=== PATIENT | male | born 1960 | race Caucasian/White ===

== ENCOUNTER 2021-09-02 10:46 | Outpatient (RCR) | payer OTHER, SELFPAY ==
[2021-09-02 11:01] VITALS: BP 173/82; PULSE 101; RESP 16; TEMP 36.7; O2SAT 98
== END 2021-09-14 23:59 | disposition home or self-care (01) ==
LOC: CCIC 10:46
PROVIDERS: Visit Provider Clinical Nurse Specialist
DX: E83.51 Hypocalcemia (principal)
CPT/HCPCS: 96365; J0610

== ENCOUNTER 2021-11-28 09:00 | Outpatient (RCR) | payer OTHER, SELFPAY ==
[2021-09-16 10:55] VITALS: BP 182/91; PULSE 100; RESP 16; TEMP 36.5; O2SAT 100
[2021-09-30 11:01] VITALS: BP 169/72; PULSE 88; RESP 16; TEMP 35.9; O2SAT 99
[2021-10-14 11:17] VITALS: BP 191/78; PULSE 95; RESP 16; TEMP 36.2; O2SAT 100
[2021-10-14] MEDS: 0.9 % SODIUM CHLORIDE 250 ml IV (12:05)
[2021-10-14] MEDS: SODIUM CHLORIDE 0.9 % (FLUSH) 10 ML SYRINGE IVF (12:06)
--- NOTE | 2021-10-14 13:10 | ONC.NURNOTE ---
pt Ca. 10/07 was 7. infusion given over 1/2 hr per pharmacy ok. tol. mauricio
[2021-10-31 09:28] VITALS: BP 172/20; PULSE 95; RESP 16; TEMP 36.4; O2SAT 99
[2021-10-31] MEDS: 0.9 % SODIUM CHLORIDE 250 ml IV (10:10)
[2021-11-14 09:33] VITALS: BP 144/82; PULSE 98; RESP 16; TEMP 35.9; O2SAT 98
[2021-11-14] MEDS: SODIUM CHLORIDE 0.9 % (FLUSH) 10 ML SYRINGE IVF (14:42)
[2021-11-14] MEDS: 0.9 % SODIUM CHLORIDE 250 ml IV (14:43)
[2021-11-28 09:32] VITALS: BP 170/84; PULSE 97; RESP 16; TEMP 36.1; O2SAT 100
--- NOTE | 2021-12-11 12:37 | ONC.NURNOTE ---
Pt called to cancel infusion appt for 12/12/21 due to pt's Calcium level being 7.7. Pt will call to schedule if his Calcium is below 7.0.
== END 2022-03-15 23:59 | disposition home or self-care (01) ==
LOC: CCIC 09:00
PROVIDERS: Visit Provider Clinical Nurse Specialist
DX: E83.51 Hypocalcemia (principal)
CPT/HCPCS: 96365; J0610; J7050

== ENCOUNTER 2022-05-10 23:38 | Emergency (ER) | payer OTHER, SELFPAY ==
[2022-05-10 23:49] VITALS: BP 213/115; PULSE 117; RESP 22; TEMP 36.7; O2SAT 97; BMI 24.3
[2022-05-10 23:55] VITALS: O2SAT 97
--- NOTE | 2022-05-10 23:56 | CRLHL7_ITS ---
For Patients: As a result of the Century Cures Act, medical imaging exams and procedure reports are released immediately into your electronic medical record. You may view this report before your referring provider. If you have questions, please contact your health care provider. INDICATION: [id number]. TECHNIQUE: Chest 2 views. COMPARISON: None. FINDINGS: Lungs: Normal lung volume. No consolidation. Basilar predominant reticular linear airspace opacities. Pleura: No pleural effusion or pneumothorax. Heart and Mediastinum: Normal heart size. Atherosclerotic aorta. Bones: No acute displaced osseous process. IMPRESSION: No consolidation. Basilar predominant reticular linear airspace opacities. This is of indeterminate etiology however differential considerations include interstitial edema, as well as interstitial fibrotic change. Dictated by Irineo Peñaloza MD @ 05/11/2022 12:53:32 AM (Electronically Signed)
[2022-05-11] VITALS (19 sets, daily range): BP systolic 170–206; BP diastolic 87–107; PULSE 92–113; RESP 22; O2SAT 88–98
[2022-05-11] MEDS: FUROSEMIDE 10 MG/ML inj 120 MG IVP (00:05)
[2022-05-11 00:10] LABS: Basophils Percent Auto 0.5 % (0.0-3.0); Eosinophils Percent Auto 0.9 % (0.0-7.0); Hematocrit 24.6 % (37.0-53.0); Immature Granulocytes Pct Auto 4.2 %; Lymphocytes Percent Auto 6.5 % (20-44); Mean Corpuscular HGB Conc 32 gm/dL (32-36); Mean Corpuscular Hemoglobin 36 pg (26-34); Mean Corpuscular Volume 112 fL (80-100); Monocytes Percent Auto 4.9 % (0.0-11.0); Platelet Count* 190 K/uL (140-440); RDW Coefficient of Variation % 15.6 % (11.5-15.5); Red Blood Count 2.19 m/uL (4.30-5.90); White Blood Count* 12.57 K/uL (4.50-11.00)
[2022-05-11 00:15] LABS: Hemoglobin* 7.9 gm/dL (13.5-17.5)
[2022-05-11 00:16] LABS: Slide Review Reflex No
--- NOTE | 2022-05-11 00:26 | ED_ITS ---
HPI - SOB/Dyspnea General Date Seen: 05/11/22 Chief Complaint: Shortness of Breath/Dyspnea Stated Complaint: Shortness of Breath Time Seen by Provider: 05/10/22 23:47 Source: patient and EMS Mode of arrival: EMS Limitations: no limitations History of Present Illness HPI Narrative: Patient is a 62-year-old gentleman presents here for evaluation of shortness of breath by EMS. This occurred approximately an hour hour and half to bur being seen, he tells me he has had this happen to him multiple times in the past, he feels that he is likely fluid overloaded, as he gets dialysis Wednesday at [facility] (formerly [facility] in [place]. Denies any chest pain associated with this, he has had no fevers chills or coughing, he was given nitro x1 on the way over, they did try BiPAP that did not work, and he is on oxygen now 5 L nasal prongs. Has not missed any dialysis, but admits that he may need to take a little bit more fluid off this eye. Does urinate, and last urinated at least once or twice today. MD elicited complaint: shortness of breath Pertinent past history: congestive heart failure Onset (ago): hour(s) Timing: improved Severity: moderate Exacerbating factors: lying flat Relieving factors: oxygen and upright position Associated symptoms: denies other symptoms Treatment prior to arrival: oxygen and nitroglycerin Related Data Home oxygen amount: none Home Medications Medication Instructions Recorded Confirmed amlodipine 10 mg tablet 10 mg PO DAILY 09/02/21 05/11/22 calcitriol 0.25 mcg capsule 1.5 mcg PO DAILY 09/02/21 05/11/22 calcium acetate(phosphat bind) 667 2,668 mg PO TID 09/02/21 05/11/22 mg tablet folic acid 1 mg tablet 1 mg PO DAILY 09/02/21 05/11/22 multivitamin 1 tab PO DAILY 09/02/21 05/11/22 omeprazole 20 mg capsule,delayed 20 mg PO DAILY 09/02/21 05/11/22 release simvastatin 20 mg tablet 20 mg PO DAILY 09/02/21 05/11/22 ustekinumab 90 mg/mL subcutaneous 90 mg subcut Q4W 09/02/21 05/11/22 syringe (Gabriel) carvedilol 12.5 mg tablet 12.5 mg PO BID 05/11/22 05/11/22 gabapentin 100 mg capsule 200 mg PO HS 05/11/22 05/11/22 Allergies Allergy/AdvReac Type Severity Reaction Status Date / Time lisinopril Allergy Severe Verified 04/12/22 11:58 Review of Systems Status of ROS: Reports: 10 or more systems reviewed and unremarkable except as noted in History and below [facility] Medical History (Updated 05/11/22 @ 04:32 by Dallin Lema MD) A-fib ?I48.91 - Unspecified atrial fibrillation (ICD-10) Acute Crohn's disease ?K50.90 - Crohn's disease, unspecified, without complications (ICD-10) Anemia ?D64.9 - Anemia, unspecified (ICD-10) Aortic dissection ?I71.00 - Dissection of unspecified site of aorta (ICD-10) CAD (coronary artery disease) ?I25.10 - Atherosclerotic heart disease of [place] coronary artery without angina pectoris (ICD-10) ESRD (end stage renal disease) ?N18.6 - End stage renal disease (ICD-10) ESRD (end stage renal disease) on dialysis ?N18.6 - End stage renal disease (ICD-10) ?Z99.2 - Dependence on renal dialysis (ICD-10) HTN (hypertension) ?I10 - Essential (primary) hypertension (ICD-10) IPMN (intraductal papillary mucinous neoplasm) ?D49.0 - Neoplasm of unspecified behavior of digestive system (ICD-10) NSTEMI (non-ST elevated myocardial infarction) ?I21.4 - Non-ST elevation (NSTEMI) myocardial infarction (ICD-10) Surgical History (Updated 05/11/22 @ 00:10 by Do Whyte RN) History of bowel resection ?Z90.49 - Acquired absence of other specified parts of digestive tract (ICD- 10) Social History Smoking Status: Current every day smoker What tobacco products do you use: cigarettes Smoking packs per day: 0.25 Smoking cigarettes per day: 5.0 Do you use any of these nicotine containing products: None How often do you have a drink containing alcohol: never AUDIT-C Alcohol total score: 0 Non-prescribed substance use: denies use Exam Narrative: Exam Narrative: I find him in room 6, he is bent over the bed, on 5 L nasal prong, he is able to speak to me in full sentences however, and doing says he feels a lot better. Pupils are equal round reactive to light, TMs are normal oropharynx is normal, he does have crackles in his lungs to mid scapula bilaterally, there is no dullness to percussion, his respiratory rate is elevated. Heart sounds no clicks murmurs or gallops, but is slightly elevated heart rate is noted. Abdomen is soft, there is no guarding, no tenderness to palpation, he has no edema noted bilaterally in his extremities, he has palpable AV fistula in his left arm. Const: Vital Signs, click to edit/add: Vital Signs - 24 hr 05/10/22 23:49 05/11/22 01:15 05/10/22 23:55 Temperature 98.1 F Pulse Rate Pulse Rate [Left P ulse Oximeter] 117 H 106 H Respiratory Rate 22 22 Blood Pressure Blood Pressure [Ri ght Upper Arm] 213/115 H 203/101 H Pulse Oximetry 97 97 97 Oxygen Delivery Me thod Nasal Cannula Nasal Cannula Nasal Cannula Oxygen Flow Rate 5 5 5 05/11/22 01:23 05/11/22 02:01 05/11/22 02:15 Temperature Pulse Rate 105 H 108 H 101 H Pulse Rate [Left P ulse Oximeter] Respiratory Rate Blood Pressure 193/103 H 197/100 H Blood Pressure [Ri ght Upper Arm] Pulse Oximetry 98 97 95 Oxygen Delivery Me thod Oxygen Flow Rate 05/11/22 02:22 05/11/22 02:30 05/11/22 02:41 Temperature Pulse Rate 104 H 106 H Pulse Rate [Left P ulse Oximeter] Respiratory Rate Blood Pressure 201/107 H 202/96 H Blood Pressure [Ri ght Upper Arm] Pulse Oximetry 95 88 Oxygen Delivery Me thod Oxygen Flow Rate 05/11/22 02:45 05/11/22 03:00 05/11/22 03:01 Temperature Pulse Rate 106 H 113 H 109 H Pulse Rate [Left P ulse Oximeter] Respiratory Rate Blood Pressure 206/99 H Blood Pressure [Ri ght Upper Arm] Pulse Oximetry 90 89 91 Oxygen Delivery Me thod Oxygen Flow Rate 05/11/22 03:02 05/11/22 03:15 05/11/22 03:21 Temperature Pulse Rate 110 H 112 H 100 Pulse Rate [Left P ulse Oximeter] Respiratory Rate Blood Pressure 204/92 H Blood Pressure [Ri ght Upper Arm] Pulse Oximetry 92 91 93 Oxygen Delivery Me thod Room Air Room Air Room Air Oxygen Flow Rate 05/11/22 03:30 05/11/22 03:41 05/11/22 03:45 Temperature Pulse Rate 98 95 100 Pulse Rate [Left P ulse Oximeter] Respiratory Rate Blood Pressure 178/87 H Blood Pressure [Ri ght Upper Arm] Pulse Oximetry 92 95 90 Oxygen Delivery Me thod Room Air Room Air Room Air Oxygen Flow Rate 05/11/22 04:00 05/11/22 04:02 Temperature Pulse Rate 97 93 Pulse Rate [Left P ulse Oximeter] Respiratory Rate Blood Pressure 173/94 H Blood Pressure [Ri ght Upper Arm] Pulse Oximetry 93 94 Oxygen Delivery Me thod Room Air Room Air Oxygen Flow Rate Documenting provider has reviewed patient's vital signs: yes Course Reevaluation(s) Reevaluation #1: Checked the patient we wean down his oxygen at this 4 L, he still is more comfortable sitting up as opposed to lying back. Is audibly crackly, troponin is elevated at 0.19 but this does not wearing me too much, given the fact that he is a dialysis patient but definitely needs to be recheck, we will give him a dose of nitroglycerin also, see we can get some vasodilation. I will recheck him, but the plan is if his troponins main stable, that he is fluid overloaded and really needs to be dialyzed. Time: 01:14 Reevaluation #2: Patient now off oxygen feeling much improved, feels that his shortness of breath is a 2/10, he is able to urinate 25 mL. Time: 02:41 Time: 04:32 Additional Reevaluation(s): Patient is requesting to go home, I think this is reasonable, given what I see. He is now off oxygen, sleeping, we will scan transfer him to his normal scheduled dialysis, that will given definitive management of this. Vital Signs Vital signs: Initial Vital Signs Temperature 98.1 F 05/10/22 23:49 Temperature Source Temporal Artery Scan 05/10/22 23:49 Pulse Rate 117 H 05/10/22 23:49 Respiratory Rate 22 05/10/22 23:49 Blood Pressure 213/115 H 05/10/22 23:49 Blood Pressure Mean 147 03/26/23 23:49 Blood Pressure Position Sitting 05/10/22 23:49 Pulse Oximetry 97 05/10/22 23:49 Oxygen Delivery Method Nasal Cannula 05/10/22 23:49 Oxygen Flow Rate 5 05/10/22 23:49 Vital Signs Temperature 98.1 F 05/10/22 23:49 Pulse Rate 117 H 05/10/22 23:49 Respiratory Rate 22 05/10/22 23:49 Blood Pressure 213/115 H 05/10/22 23:49 Pulse Oximetry 97 05/10/22 23:49 Oxygen Delivery Method Nasal Cannula 05/10/22 23:49 Oxygen Flow Rate 5 05/10/22 23:49 Temperature 98.1 F 05/10/22 23:49 Pulse Rate 93 05/11/22 04:02 Respiratory Rate 22 05/11/22 01:15 Blood Pressure 173/94 H 05/11/22 04:02 Pulse Oximetry 94 05/11/22 04:02 Oxygen Delivery Method Room Air 05/11/22 04:02 Oxygen Flow Rate 5 05/11/22 01:15 MDM - SOB/Dyspnea MDM Narrative Medical decision making narrative: Life-threatening differential diagnosis includes occluded COPD exacerbation, pulmonary edema, acute coronary syndromes, pulmonary embolism, pneumonia, and pneumothorax. Other differential diagnosis considerations include asthma, br onchitis as well as other etiologies I think the likely etiology here is more likely is fluid overloaded, in a dialysis patient he does get dialysis Wednesday as scheduled tomorrow, but he does urinate too. I will try some Lasix, 120 mg IV to see if we can promote some fluid offloading, it is likely that the nitroglycerin was able to give him a little bit of relief. Chest x-ray labs EKG will also be ordered. Medical Records Attestation: I reviewed the patient's medical records. Lab Data Attestation: I reviewed the patient's lab results. Labs: Lab Results 05/11/22 05/11/22 05/11/22 Range/Units 00:00 00:00 01:52 WBC 12.57 H (4.50-11.00) K/uL RBC 2.19 L (4.30-5.90) m/uL Hgb 7.9 L* (13.5-17.5) gm/dL Hct 24.6 L (37.0-53.0) % MCV 112 H (80-100) fL MCH 36 H (26-34) pg MCHC 32 (32-36) gm/dL RDW Coeff of Loretta 15.6 H (11.5-15.5) % Plt Count 190 (140-440) K/uL Neut % (Auto) 83.0 H (42.0-72.0) % Lymph % (Auto) 6.5 L (20-44) % [place] % (Auto) 4.9 (0.0-11.0) % Eos % (Auto) 0.9 (0.0-7.0) % Baso % (Auto) 0.5 (0.0-3.0) % Neut # (Auto) 10.40 H (1.7-7.0) K/uL Lymph # (Auto) 0.80 L (0.90-2.90) K/uL [place] # (Auto) 0.60 (0.00-0.90) K/UL Eos # (Auto) 0.10 (0.00-0.50) K/uL Baso # (Auto) 0.10 (0.00-0.30) K/uL INR 1.25 H (0.91-1.10) APTT 30 (23-33) Seconds Sodium 134 L (135-149) mmol/L Potassium 5.1 (3.6-5.1) mmol/L Chloride 99 (96-114) mmol/L Carbon Dioxide 21 (20-32) mmol/L BUN 40 H (7-30) mg/dL Creatinine 9.8 H (0.5-1.5) mg/dL Estimated Creat Clear 8.22 Estimated GFR 5 ml/min Glucose 101 (60-115) mg/dL Calcium 8.4 Cancelled (8.4-10.6) mg/dL Troponin I 0.19 H* 0.20 H* (0.01-0.04) ng/mL SARS-CoV-2 (PCR) Negative SARS-CoV-2 (Negative) Influenza Type A (PCR) Negative PCR FLU A (Negative) Influenza Type B (PCR) Negative PCR FLU B (Negative) RSV (PCR) Negative PCR RSV (Negative) ECG Data Attestation: I personally reviewed and interpreted this ECG as follows: ECG interpretation date: 05/11/22 Interpretation: EKG shows right bundle-branch block, with bifascicular block, tachycardic at 1:09 a.m., no old EKG to compare to, no acute ST wave changes, abnormal EKG Discharge Plan Discharge Clinical Impression: CKD (chronic kidney disease) requiring chronic dialysis, Fluid overload Patient Disposition: Xfer Other Condition: Improved Instructions: Hemodialysis (DC) Additional Instructions: Patient is markedly better, off oxygen, we will transport him to his scheduled dialysis, as this will give him definitive management, I recommended that they run him a little sole polisher, especially going into the weekend, or he manage his fluids a bit better, otherwise he will come back and be seen as needed, or if he has worsening condition. Prescriptions: No Action carvedilol 12.5 mg tablet 12.5 mg PO BID gabapentin 100 mg capsule 200 mg PO HS Stelara 90 mg/mL syringe 90 mg SUBCUT Q4W multivitamin Tablet 1 tab PO DAILY calcium acetate(phosphat bind) 667 mg tablet 2,668 mg PO TID Patient Comments: TAKE 4 TABLETS BY MOUTH THREE TIMES DAILY WITH MEALS AND TAKE 2 TABLETS WITH SNACKS TO EQUAL 14 TABLETS PER DAY folic acid 1 mg tablet 1 mg PO DAILY omeprazole 20 mg capsule,delayed release(DR/EC) 20 mg PO DAILY amlodipine 10 mg tablet 10 mg PO DAILY calcitriol 0.25 mcg capsule 1.5 mcg PO DAILY simvastatin 20 mg tablet 20 mg PO DAILY Stand Alone Forms: [facility] Info Instructions
[2022-05-11 00:27] LABS: INR 1.25 (0.91-1.10); Prothrombin Time 16.5 Seconds
[2022-05-11 00:28] LABS: Partial Thromboplastin Time* 30 Seconds (23-33)
[2022-05-11 00:29] LABS: Chloride* 99 mmol/L (96-114); Sodium* 134 mmol/L (135-149)
[2022-05-11 00:30] LABS: Potassium* 5.1 mmol/L (3.6-5.1)
[2022-05-11 00:32] LABS: Creatinine* 9.8 mg/dL (0.5-1.5); Est. Creatinine Clearance* 8.22; Estimated Glomerular Filt Rate 5 ml/min
[2022-05-11 00:33] LABS: Blood Urea Nitrogen* 40 mg/dL (7-30); Calcium* 8.4 mg/dL (8.4-10.6); Carbon Dioxide* 21 mmol/L (20-32); Glucose* 101 mg/dL (60-115)
[2022-05-11 00:44] LABS: Troponin I* 0.19 ng/mL (0.01-0.04)
[2022-05-11 00:55] LABS: PCR FLU A Negative PCR FLU A (Negative); PCR FLU B Negative PCR FLU B (Negative); PCR RSV Negative PCR RSV (Negative)
[2022-05-11 00:57] LABS: SARS PCR* Negative SARS-CoV-2 (Negative)
[2022-05-11] MEDS: NITROGLYCERIN 0.4 MG TAB.SUBL SUBLINGUAL (01:19)
[2022-05-11] MEDS: carvediloL 6.25 MG TABLET 12.5 MG PO (03:14)
[2022-05-11] MEDS: AMLODIPINE 10 MG TABLET PO (03:14)
== END 2022-05-11 05:00 | disposition other institution (70) ==
PROVIDERS: Emergency Provider Family Medicine
DX: N18.6 End stage renal disease (principal); E87.70 Fluid overload, unspecified
CPT/HCPCS: 36415; 71046; 80048; 82310; 84484; 85025; 85610; 85730; 87502; 87634; 87635; 93005; 96374; 99285; A9270; J1940

== ENCOUNTER 2022-05-11 04:51 | Outpatient (CLI) | payer OTHER, SELFPAY | END 2022-05-11 04:52 | disposition home or self-care (01) | LOC: AMB 12:37 | PROVIDERS: Visit Provider Family Medicine | DX: R06.09 Other forms of dyspnea (principal) | CPT/HCPCS: A0425; A0428 ==

== ENCOUNTER 2023-01-22 09:50 | Emergency (ER) | payer OTHER, SELFPAY ==
[2023-01-22] VITALS (13 sets, daily range): BP systolic 90–115; BP diastolic 50–68; PULSE 60–84; RESP 12–18; TEMP 36.7; O2SAT 90–99; BMI 23.7
--- NOTE | 2023-01-22 10:28 | ED.GENADULT ---
HPI - General Adult General Time Seen by Provider: 10:28 Date Seen: 01/22/23 Chief complaint: Back Injury/Pain Stated complaint: very low BP Time Seen by Provider: 01/22/23 10:10 Source: patient, family and RN notes reviewed Mode of arrival: ambulatory Limitations: no limitations History of Present Illness HPI narrative: 62-year-old male with end-stage renal disease on dialysis who presents for back pain and low blood pressure. Patient notes that his blood pressures have been low all week when he goes to dialysis, was able to have his usual runs during this time. He says he has been drinking a little bit less than usual, normal appetite. Denies chest pain or shortness of breath. Denies abdominal pain, nausea, vomiting, diarrhea. This is legs are little more swollen than normal. He also has some bilateral back pain that is worse when he stands up, no new injuries. He is on amlodipine and carvedilol and has continued taking these, these are not new medications. Related Data Home Medications Medication Instructions Recorded Confirmed amlodipine 10 mg tablet 10 mg PO DAILY 09/02/21 05/11/22 calcitriol 0.25 mcg capsule 1.5 mcg PO DAILY 09/02/21 05/11/22 calcium acetate(phosphat bind) 667 2,668 mg PO TID 09/02/21 05/11/22 mg tablet folic acid 1 mg tablet 1 mg PO DAILY 09/02/21 05/11/22 multivitamin 1 tab PO DAILY 09/02/21 05/11/22 omeprazole 20 mg capsule,delayed 20 mg PO DAILY 09/02/21 05/11/22 release simvastatin 20 mg tablet 20 mg PO DAILY 09/02/21 05/11/22 ustekinumab 90 mg/mL subcutaneous 90 mg subcut Q4W 09/02/21 05/11/22 syringe (Stelara) carvedilol 12.5 mg tablet 12.5 mg PO BID 05/11/22 05/11/22 gabapentin 100 mg capsule 200 mg PO HS 05/11/22 05/11/22 Allergies Allergy/AdvReac Type Severity Reaction Status Date / Time lisinopril Allergy Severe Verified 01/22/23 14:12 [facility] Medical History (Updated 01/22/23 @ 17:05 by Hermilo Abad MD) Acute Crohn's disease ?K50.90 - Crohn's disease, unspecified, without complications (ICD-10) Anemia ?D64.9 - Anemia, unspecified (ICD-10) NSTEMI (non-ST elevated myocardial infarction) ?I21.4 - Non-ST elevation (NSTEMI) myocardial infarction (ICD-10) HTN (hypertension) ?I10 - Essential (primary) hypertension (ICD-10) IPMN (intraductal papillary mucinous neoplasm) ?D49.0 - Neoplasm of unspecified behavior of digestive system (ICD-10) ESRD (end stage renal disease) on dialysis ?N18.6 - End stage renal disease (ICD-10) ?Z99.2 - Dependence on renal dialysis (ICD-10) ESRD (end stage renal disease) ?N18.6 - End stage renal disease (ICD-10) CAD (coronary artery disease) ?I25.10 - Atherosclerotic heart disease of [place] coronary artery without angina pectoris (ICD-10) Aortic dissection ?I71.00 - Dissection of unspecified site of aorta (ICD-10) A-fib ?I48.91 - Unspecified atrial fibrillation (ICD-10) Surgical History (Updated 05/11/22 @ 00:10 by Do Whyte RN) History of bowel resection ?Z90.49 - Acquired absence of other specified parts of digestive tract (ICD-10) Social History Smoking Status: Current every day smoker What tobacco products do you use: cigarettes Smoking packs per day: 0.25 Smoking cigarettes per day: 5.0 Do you use any of these nicotine containing products: None How often do you have a drink containing alcohol: never AUDIT-C Alcohol total score: 0 Non-prescribed substance use: denies use Exam Narrative: Exam Narrative: General: Well-developed and well-nourished, no acute distress Head: Atraumatic and normocephalic Eyes: Pupils are equal reactive, extraocular motions intact, conjunctiva clear ENT: External nose and ears are normal, posterior pharynx without erythema or exudate Neck: No midline cervical tenderness, full spontaneous range of motion the neck, trachea midline, no adenopathy Heart: Regular rate and rhythm no murmurs or thrills Lungs: Clear to auscultation bilaterally without wheezes or crackles Abdomen: Soft, nontender, nondistended with active bowel sounds Musculoskeletal: Mild bilateral lumbar paraspinous tenderness, no CVA tenderness. Moderate bilateral lower extremity to the mid thayer Neurologic: Awake, alert, and oriented x3, no gross focal neurologic deficits, cranial nerves intact as tested Psych: Mood and affect are appropriate Skin: No rashes Const: Vital Signs, click to edit/add: Vital Signs - 24 hr 01/22/23 10:03 01/22/23 12:00 01/22/23 12:35 Temperature 98.0 F Pulse Rate 76 81 Pulse Rate [Pulse Oximeter] 60 Respiratory Rate 14 14 Blood Pressure 102/52 L Blood Pressure [Ri ght Upper Arm] 90/50 L Pulse Oximetry 95 95 91 Oxygen Delivery Me thod Room Air 01/22/23 13:08 01/22/23 13:32 01/22/23 14:06 Temperature Pulse Rate 80 81 81 Pulse Rate [Pulse Oximeter] Respiratory Rate 18 14 14 Blood Pressure 105/59 L 111/55 L 105/64 Blood Pressure [Ri ght Upper Arm] Pulse Oximetry 98 98 99 Oxygen Delivery Me thod 01/22/23 14:36 01/22/23 15:02 01/22/23 15:32 Temperature Pulse Rate 84 80 81 Pulse Rate [Pulse Oximeter] Respiratory Rate 14 16 14 Blood Pressure 99/57 L 115/68 115/51 L Blood Pressure [Ri ght Upper Arm] Pulse Oximetry 99 93 94 Oxygen Delivery Me thod 01/22/23 16:02 Temperature Pulse Rate 77 Pulse Rate [Pulse Oximeter] Respiratory Rate 16 Blood Pressure 94/60 Blood Pressure [Ri ght Upper Arm] Pulse Oximetry 94 Oxygen Delivery Me thod Course Course ED Course: Patient seen and examined, prior records are reviewed. Patient on dialysis who comes in for low blood pressures this week. Otherwise is feeling well although he does have some mild bilateral mid back pain which is worse with standing. On exam here he is hypotensive, no abdominal pain or tenderness. Consider dehydration although it sounds like patient has been drinking okay, also consider electrolyte disturbance, sepsis. Pulmonary embolism could cause hypotension but patient has no history of chest pain, breathing difficulty or syncope. Labs ordered along with small IV fluid bolus. If labs are reassuring and noted etiology for symptoms is found, will have patient stop his amlodipine and follow-up. Reevaluation(s) Time of Reevaluation #1: 11:20 Reevaluation #1: Labs independently interpreted by me with CBC that demonstrates anemia with hemoglobin of 7.7, prior hemoglobin in April 2022 was 7.4 and this likely is related to patient's chronic kidney disease but appears to be stable. Troponin 2.45, patient with no chest pain or EKG changes and again in setting of chronic kidney disease, this is not unexpected, repeat troponin will be done in 2 hours. EKG is reassuring. Time of Reevaluation #2: 12:47 Reevaluation #2: Patient complaining of chest tightness, blood pressure improved. Repeat EKG does not demonstrate any changes, repeat troponin is pending will add repeat hemoglobin. CT scan and bili interpreted by me demonstrates a large complex cystic lesion on the left kidney and trace pleural effusions. Time of Reevaluation #3: 13:33 Reevaluation #3: Patient continues to have chest pain, morphine IV was given. Repeat hemoglobin is stable at 7.9. Radiology interpretation CT with exophytic lesion of the left kidney with solid components verses hemorrhage into this mass. Given abnormal CT scan and now severe chest pain along with his back pain, concern for possible aortic pathology or hemorrhage into this cyst. CTA will be ordered, patient will need to be dialyzed over the weekend but given his symptoms likely will need to be transferred for admission. Repeat troponin is still pending Additional Reevaluation(s): 2:44 p.m. CTA independently interpreted by me does not demonstrate any pathology of the aorta. Small bilateral pleural effusions as seen on prior CT appears stable which is reassuring given small fluid bolus the patient was given. Left renal cyst/mass appears stable with no active extravasation of contrast into this. Repeat troponin is stable at 2.21. CTA is pending and will discuss with Cardiology. 4:46 p.m. repeat troponin 2.32. Care was discussed with Dr. Elder, cardiology. Agrees that in setting end-stage renal disease and normal EKG, stable elevated troponins with no significant rise are unlikely to represent acute coronary syndrome, and in this setting likely represent hypoperfusion due to hypotension and anemia. Does not recommend transfer for cardiology evaluation, does not recommend heparinization. Patient rechecked and is pain-free now. We discussed admission although patient will need to be transferred due to capacity issues at [facility]. Patient prefers to be discharged home. We discussed risks of discharge including continued pain,. Return to the to diagnosis emergent condition, disability, or . Patient is agreeable. Will contact Nephrology to discussed dialysis in setting of contrast administration today. 5:00 p.m. care discussed with [facility], does not recommend dialysis over the weekend and usual dialysis and Wednesday is reasonable. Will have patient stop his amlodipine for the weekend. Vital Signs Vital signs: Initial Vital Signs Temperature 98.0 F 01/22/23 10:03 Temperature Source Temporal Artery Scan 01/22/23 10:03 Pulse Rate 60 01/22/23 10:03 Pulse Rhythm Regular 01/22/23 10:03 Respiratory Rate 14 01/22/23 10:03 Blood Pressure 90/50 L 01/22/23 10:03 Blood Pressure Mean 63 L 01/22/23 10:03 Blood Pressure Position Sitting 01/22/23 10:03 Pulse Oximetry 95 01/22/23 10:03 Oxygen Delivery Method Room Air 01/22/23 10:03 Vital Signs Temperature 98.0 F 01/22/23 10:03 Pulse Rate 60 01/22/23 10:03 Respiratory Rate 14 01/22/23 10:03 Blood Pressure 90/50 L 01/22/23 10:03 Pulse Oximetry 95 01/22/23 10:03 Oxygen Delivery Method Room Air 01/22/23 10:03 Temperature 98.0 F 01/22/23 10:03 Pulse Rate 77 01/22/23 16:02 Respiratory Rate 16 01/22/23 16:02 Blood Pressure 94/60 01/22/23 16:02 Pulse Oximetry 94 01/22/23 16:02 Oxygen Delivery Method Room Air 01/22/23 10:03 Medications Administered Medications: Discontinued Medications Generic Name Dose Route Start Last Admin Trade Name Freq PRN Reason Stop Dose Admin Hydromorphone HCl 0.5 mg 01/22/23 13:36 01/22/23 14:00 Hydromorphone 0.5 Mg/0.5 Ml Inj IVP 01/22/23 13:37 0.5 mg ONCE ONE Administration Hydromorphone HCl 0.5 mg 01/22/23 15:47 01/22/23 15:51 Hydromorphone 0.5 Mg/0.5 Ml Inj IVP 01/22/23 15:48 0.5 mg ONCE ONE Administration Sodium Chloride 250 mls @ 250 mls/hr 01/22/23 10:37 01/22/23 12:29 0.9 % Sodium Chloride 250 Ml IV 01/22/23 11:36 Infused .Q1H ONE Infusion Lidocaine/Aluminum/Magnesium/Simeth 15 ml 01/22/23 13:09 01/22/23 13:19 Mag Hydrox/Aluminum Hyd/Simeth 30 Ml Oral.Susp PO 01/22/23 13:10 Not Given ONCE ONE Morphine Sulfate 2 mg 01/22/23 13:10 01/22/23 13:16 Morphine 2 Mg/Ml Inj IVP 01/22/23 13:11 2 mg ONCE ONE Administration Oxycodone HCl 2.5 mg 01/22/23 10:58 01/22/23 11:14 Oxycodone 5 Mg Tablet PO 01/22/23 10:59 2.5 mg ONCE ONE Administration Oxycodone HCl 2.5 mg 01/22/23 12:40 01/22/23 12:52 Oxycodone 1 Mg/Ml Oral Soln PO 01/22/23 12:41 2.5 mg ONCE ONE Administration Medical Decision Making Lab Data Labs: Lab Results 01/22/23 01/22/23 01/22/23 Range/Units 11:00 12:16 13:04 WBC 6.19 (4.50-11.00) K/uL RBC 2.38 L (4.30-5.90) m/uL Hgb 7.7 L* 7.9 L* (13.5-17.5) gm/dL Hct 24.7 L (37.0-53.0) % MCV 104 H (80-100) fL MCH 32 (26-34) pg MCHC 31 L (32-36) gm/dL RDW Coeff of [place] 17.9 H (11.5-15.5) % Plt Count 127 L (140-440) K/uL Neut % (Auto) 86.6 H (42.0-72.0) % Lymph % (Auto) 6.8 L (20-44) % [place] % (Auto) 4.7 (0.0-11.0) % Eos % (Auto) 0.2 (0.0-7.0) % Baso % (Auto) 0.6 (0.0-3.0) % Neut # (Auto) 5.40 (1.7-7.0) K/uL Lymph # (Auto) 0.40 L (0.90-2.90) K/uL [place] # (Auto) 0.30 (0.00-0.90) K/UL Eos # (Auto) 0.01 (0.00-0.50) K/uL Baso # (Auto) 0.04 (0.00-0.30) K/uL Abs Immat Gran (auto) 0.07 (0.00-0.30) K/uL Imm/Tot Granulo (auto) 1.1 % Sodium 131 L (135-149) mmol/L Potassium 4.0 (3.6-5.1) mmol/L Chloride 91 L (96-114) mmol/L Carbon Dioxide 33 H (20-32) mmol/L Anion Gap 7 (7-15) mEq/L BUN 15 (7-30) mg/dL Creatinine 3.1 H (0.5-1.5) mg/dL Estimated Creat Clear 25.98 Estimated GFR 22 ml/min Glucose 113 (60-115) mg/dL Calcium 8.3 L (8.4-10.6) mg/dL Magnesium 1.6 (1.5-2.6) mg/dL Total Bilirubin 1.4 (0.1-1.5) mg/dL Direct Bilirubin 0.4 (0.0-0.5) mg/dL AST 36 H (12-35) U/L ALT 22 (4-50) U/L Alkaline Phosphatase 62 (40-150) U/L Total Protein 6.2 (6.0-8.3) g/dL Albumin 3.2 L (3.3-5.0) g/dL Urine Color Yellow (Yellow) Urine Appearance Clear (Clear) Urine pH 7.5 (5.0-8.5) Ur Specific [place] 1.015 (1.000-1.030) Urine Protein 2+ A (Negative) Urine Glucose (UA) Negative (Negative) Urine Ketones Negative (Negative) Urine Blood 1+ A (Negative) Urine Nitrite Negative (Negative) Urine Bilirubin Negative (Negative) Urine Urobilinogen 0.2 (0.2-1.0) Ur Leukocyte Esterase 3+ A (Negative) Urine RBC 10-25 A (0-2) Urine WBC 2-5 (0-5) Ur Squamous Epith Cells Few (None-Few) Amorphous Sediment Moderate A (None) Urine Bacteria Few A (None) POC Troponin I 2.21 H (0.01-0.04) ng/ml 01/22/23 Range/Units 16:00 WBC (4.50-11.00) K/uL RBC (4.30-5.90) m/uL Hgb (13.5-17.5) gm/dL Hct (37.0-53.0) % MCV (80-100) fL MCH (26-34) pg MCHC (32-36) gm/dL RDW Coeff of [place] (11.5-15.5) % Plt Count (140-440) K/uL Neut % (Auto) (42.0-72.0) % Lymph % (Auto) (20-44) % [place] % (Auto) (0.0-11.0) % Eos % (Auto) (0.0-7.0) % Baso % (Auto) (0.0-3.0) % Neut # (Auto) (1.7-7.0) K/uL Lymph # (Auto) (0.90-2.90) K/uL [place] # (Auto) (0.00-0.90) K/UL Eos # (Auto) (0.00-0.50) K/uL Baso # (Auto) (0.00-0.30) K/uL Abs Immat Gran (auto) (0.00-0.30) K/uL Imm/Tot Granulo (auto) % Sodium (135-149) mmol/L Potassium (3.6-5.1) mmol/L Chloride (96-114) mmol/L Carbon Dioxide (20-32) mmol/L Anion Gap (7-15) mEq/L BUN (7-30) mg/dL Creatinine (0.5-1.5) mg/dL Estimated Creat Clear Estimated GFR ml/min Glucose (60-115) mg/dL Calcium (8.4-10.6) mg/dL Magnesium (1.5-2.6) mg/dL Total Bilirubin (0.1-1.5) mg/dL Direct Bilirubin (0.0-0.5) mg/dL AST (12-35) U/L ALT (4-50) U/L Alkaline Phosphatase (40-150) U/L Total Protein (6.0-8.3) g/dL Albumin (3.3-5.0) g/dL Urine Color (Yellow) Urine Appearance (Clear) Urine pH (5.0-8.5) Ur Specific [place] (1.000-1.030) Urine Protein (Negative) Urine Glucose (UA) (Negative) Urine Ketones (Negative) Urine Blood (Negative) Urine Nitrite (Negative) Urine Bilirubin (Negative) Urine Urobilinogen (0.2-1.0) Ur Leukocyte Esterase (Negative) Urine RBC (0-2) Urine WBC (0-5) Ur Squamous Epith Cells (None-Few) Amorphous Sediment (None) Urine Bacteria (None) POC Troponin I 2.32 H (0.01-0.04) ng/ml ECG Data Attestation: I personally reviewed and interpreted this ECG as follows: Prior ECG tracings: available for review Interpretation: Independently interpreted by me demonstrates sinus rhythm rate 75, right bundle-branch block with left anterior fascicular block, LVH, no acute ischemic changes, MA 158, QTC 533. Compared to prior of April 2022, no acute changes. Repeat EKG performed at 12:42 p.m. for chest pain independently interpreted by me demonstrate rate 80, sinus rhythm, right bundle-branch block and left anterior fascicular block, no acute ischemic changes, MA 160, QTC 535. No change from prior of earlier today. Discharge Plan Discharge Clinical Impression: Acute hypotension, Anemia in chronic kidney disease, CKD (chronic kidney disease) requiring chronic dialysis, Chest pain Patient Disposition: Home, Self-Care Condition: Stable Instructions: Chest Pain (DC), Hypotension (DC), Anemia (ED) Additional Instructions: Stop amlodipine Go to dialysis Wednesday as scheduled Activity Level: Activity as Tolerated Discharge Diet: Regular Prescriptions: No Action carvedilol 12.5 mg tablet 12.5 mg PO BID gabapentin 100 mg capsule 200 mg PO HS Stelara 90 mg/mL syringe 90 mg SUBCUT Q4W multivitamin Tablet 1 tab PO DAILY calcium acetate(phosphat bind) 667 mg tablet 2,668 mg PO TID Patient Comments: TAKE 4 TABLETS BY MOUTH THREE TIMES DAILY WITH MEALS AND TAKE 2 TABLETS WITH SNACKS TO EQUAL 14 TABLETS PER DAY folic acid 1 mg tablet 1 mg PO DAILY omeprazole 20 mg capsule,delayed release(DR/EC) 20 mg PO DAILY amlodipine 10 mg tablet 10 mg PO DAILY calcitriol 0.25 mcg capsule 1.5 mcg PO DAILY simvastatin 20 mg tablet 20 mg PO DAILY Follow Up/Referrals: Provider,Not a Local [Primary Care Provider] - Stand Alone Forms: edjing Info Instructions
--- NOTE | 2023-01-22 10:37 | CRLHL7_ITS ---
For Patients: As a result of the 21st Century Cures Act, medical imaging exams and procedure reports are released immediately into your electronic medical record. You may view this report before your referring provider. If you have questions, please contact your health care provider. INDICATION: Bilateral flank pain. On dialysis. Hypotension. TECHNIQUE: CT abdomen and pelvis without contrast. COMPARISON: None available. FINDINGS: Lower chest: Small bilateral pleural effusions. Bibasilar atelectasis. Evaluation of solid organs is limited secondary to lack of IV contrast administration. Liver: 1.2 cm cyst in the right lobe of the liver. Gallbladder and bile ducts: Not visualized, presumed to be surgically absent. Pancreas: There appear to be postsurgical changes of prior distal pancreatectomy. Spleen: Unremarkable. Multiple splenules are noted. Adrenal glands: Unremarkable. Kidneys: Severe atrophy of the bilateral [place] kidneys. Scattered punctate renal vascular calcifications versus nonobstructing calculi bilaterally. No hydronephrosis bilaterally. 1.5 cm cyst in the right kidney. There is a heterogeneous exophytic lesion in the lower pole of the left kidney measuring approximately 8.2 x 9.7 x 7.9 cm, with peripheral calcifications. There are internal hyperdensities within this lesion. Although these may reflect solid components, appearance raises concern for hemorrhage within the lesion, particularly in setting of hypotension. Retroperitoneum: No pathologically enlarged lymph node by size criteria. Bowel and mesentery: Bowel is not obstructed. No pneumoperitoneum. Scattered colonic diverticulosis, without evidence of acute diverticulitis. A right lower quadrant spigelian hernia contains long segment loop of ascending colon, without evidence of obstruction. Mild mesenteric edema. Bladder: Decompressed, suboptimally evaluated. Reproductive organs: No significant prostatomegaly. Pelvic lymph nodes: No lymphadenopathy. Vessels: Extensive vascular calcifications. Abdominal wall: Mild anasarca. Bones: Multilevel degenerative changes of the spine. No suspicious/aggressive focal osseous lesion. IMPRESSION: 1. Heterogeneous exophytic lesion in the lower pole of the left kidney measures approximately 8.2 x 9.7 x 7.9 cm, with peripheral calcifications. There are internal hyperdensities within this lesion. Although these may reflect solid components, the appearance raises concern for hemorrhage within the lesion, particularly in the setting of hypotension. Evaluation for active hemorrhage would require IV contrast administration. 2. Third spacing of fluid. 3. Additional incidental findings as above. Please note that all CT scans at this facility use dose modulation, iterative reconstruction, and/or weight-based dosing when appropriate to reduce radiation dose to as low as reasonably achievable. Dictated by Jun Hurt MD @ 01/22/2023 1:30:28 PM (Electronically Signed)
[2023-01-22 11:09] LABS: Basophils Absolute Auto 0.04 K/uL (0.00-0.30); Basophils Percent Auto 0.6 % (0.0-3.0); Eosinophils Absolute Auto 0.01 K/uL (0.00-0.50); Eosinophils Percent Auto 0.2 % (0.0-7.0); Hematocrit 24.7 % (37.0-53.0); Immature Granulocytes Abs Auto 0.07 K/uL (0.00-0.30); Immature Granulocytes Pct Auto 1.1 %; Lymphocytes Percent Auto 6.8 % (20-44); Mean Corpuscular HGB Conc 31 gm/dL (32-36); Mean Corpuscular Hemoglobin 32 pg (26-34); Mean Corpuscular Volume 104 fL (80-100); Monocytes Percent Auto 4.7 % (0.0-11.0); Neutrophils Percent Auto 86.6 % (42.0-72.0); Platelet Count* 127 K/uL (140-440); RDW Coefficient of Variation % 17.9 % (11.5-15.5); Red Blood Count 2.38 m/uL (4.30-5.90); White Blood Count* 6.19 K/uL (4.50-11.00)
[2023-01-22] MEDS: OXYCODONE 5 MG TABLET 2.5 MG PO (11:14)
[2023-01-22] MEDS: 0.9 % SODIUM CHLORIDE 250 ml 250 ML IV (11:15)
[2023-01-22 11:16] LABS: Hemoglobin* 7.7 gm/dL (13.5-17.5); Slide Review Reflex No
[2023-01-22 11:22] LABS: Chloride* 91 mmol/L (96-114)
[2023-01-22 11:23] LABS: Sodium* 131 mmol/L (135-149)
[2023-01-22 11:25] LABS: Creatinine* 3.1 mg/dL (0.5-1.5); Est. Creatinine Clearance* 25.98; Estimated Glomerular Filt Rate 22 ml/min
[2023-01-22 11:26] LABS: Anion Gap 7 mEq/L (7-15); Blood Urea Nitrogen* 15 mg/dL (7-30); Calcium* 8.3 mg/dL (8.4-10.6); Carbon Dioxide* 33 mmol/L (20-32); Glucose* 113 mg/dL (60-115)
[2023-01-22 11:33] LABS: Albumin* 3.2 g/dL (3.3-5.0)
[2023-01-22 11:35] LABS: Aspartate Amino Transferase* 36 U/L (12-35); Bilirubin Direct* 0.4 mg/dL (0.0-0.5); Bilirubin Total* 1.4 mg/dL (0.1-1.5); Total Protein* 6.2 g/dL (6.0-8.3)
[2023-01-22 11:36] LABS: Alanine Aminotransferase* 22 U/L (4-50); Alkaline Phosphatase* 62 U/L (40-150)
[2023-01-22 12:21] LABS: Magnesium* 1.6 mg/dL (1.5-2.6)
[2023-01-22 12:25] LABS: Appearance Urine Clear (Clear); Bilirubin Urine Negative (Negative); Blood Urine 1+ (Negative); Color Urine Yellow (Yellow); Glucose Urine Negative (Negative); Ketones Urine Negative (Negative); Leukocyte Esterase Urine 3+ (Negative); Nitrite Urine Negative (Negative); Protein Urine 2+ (Negative); Specific Gravity Urine 1.015 (1.000-1.030); Urobilinogen Urine 0.2 (0.2-1.0); pH Urine 7.5 (5.0-8.5)
[2023-01-22] MEDS: OXYCODONE 1 MG/ML ORAL SOLN 2.5 MG PO (12:52)
[2023-01-22] MEDS: MORPHINE 2 MG/ML inj IVP (13:16)
[2023-01-22 13:21] LABS: Hemoglobin* 7.9 gm/dL (13.5-17.5)
--- NOTE | 2023-01-22 13:30 | CRLHL7_ITS ---
For Patients: As a result of the 21st Century Cures Act, medical imaging exams and procedure reports are released immediately into your electronic medical record. You may view this report before your referring provider. If you have questions, please contact your health care provider. INDICATION: Chest and back pain. TECHNIQUE: Multiplanar CT examination of the chest without contrast and CT examination of the chest, abdomen and pelvis acquired after the administration of 95 mL of Isovue 370 contrast intravenously, dissection protocol COMPARISON: CT abdomen pelvis 01/22/2023 FINDINGS: CHEST: Lower neck: Cardiovascular structures: The unenhanced images demonstrate no evidence of aortic intramural hematoma. Thoracic aorta is normal in caliber without evidence of dissection. Heart size is normal. Severe atherosclerosis of the thoracic aorta. No large central pulmonary embolus. Coronary arterial calcifications Airways: The trachea remains patent. Mild peribronchial wall thickening diffusely, several foci of mucoid impaction in the left lower lobe. Mediastinum: No lymphadenopathy. Lungs: No focal consolidation. Linear bandlike opacifications of the lung bases likely due to subsegmental atelectasis and/or scarring. Interlobular septal thickening diffusely. Mild to moderate emphysematous changes. Pleura: Small pleural effusions bilaterally. No pneumothorax. Chest wall: Severe gynecomastia bilaterally. Bones: Intraosseous hemangioma within the T9 vertebral body. Degenerative changes of the thoracic spine. No acute osseous abnormalities. ABDOMEN AND PELVIS: Liver: Unremarkable. Gallbladder: Cholecystectomy. Bile ducts: No biliary ductal dilitation. Pancreas: Status post distal pancreatectomy. Spleen: Unremarkable. Adrenal glands: Unremarkable. Kidneys: Markedly atrophic kidneys and cortical scarring. 7.9 x 7.2 cm exophytic lesion arising from the lower pole of the left kidney with peripheral calcifications. No nodular enhancing components. There are thin internal septations. No hydronephrosis or obstructive uropathy. Tiny punctate nonobstructive calculi within the collecting system of the right kidney. Ureters: No hydroureter. Bladder: Decompressed limiting evaluation. GI tract: Herniation of several loops of ascending colon through a right spigelian hernia without evidence of bowel obstruction. Vascular: Severe atherosclerotic calcifications. Contour irregularity with medialization of the atherosclerotic calcifications of the infrarenal abdominal aorta without aneurysm identified. Chronic appearing calcified dissection flap involving a short-segment of the infrarenal abdominal aorta at this level. Lymph nodes: No pathologic lymphadenopathy by size criteria. Peritoneum: Unremarkable. No free air or significant free fluid. Pelvic Organs: Unremarkable. Bones: Degenerative changes without acute osseous abnormality is identified. Abdominal wall/soft tissues: Moderate diffuse anasarca. Right spigelian hernia. IMPRESSION: 1. No aortic intramural hematoma or dissection of the thoracic aorta. 2. Pulmonary vascular congestion interstitial edema, with small bilateral pleural effusions, can be seen with pulmonary edema. 3. Extensive atherosclerotic calcifications of the abdominal aorta and its branches. Chronic appearing tiny calcified dissection flap involving a short segment of the infrarenal abdominal aorta, without involvement of the inferior mesenteric or renal arteries. No acute dissection identified. 4. Large peripherally calcified left renal lesion measuring up to 7.9 cm on this examination, possibly complex simple renal cyst. Nonemergent MR may be considered for follow up if clinically warranted. 5. Herniation of several loops of nonobstructed ascending colon through a right spigelian hernia. No pneumatosis intestinalis or pneumoperitoneum. 6. Moderate diffuse anasarca. Please note that all CT scans at this facility use dose modulation, iterative reconstruction, and/or weight-based dosing when appropriate to reduce radiation dose to as low as reasonably achievable. Dictated by Elijah Melissa MD @ 01/22/2023 4:31:54 PM (Electronically Signed)
[2023-01-22 13:40] LABS: Amorphous Sediment Urine Moderate; Bacteria Urine Few; Squamous Epithelial Cell Urine Few (None-Few)
[2023-01-22 13:49] LABS: Troponin, Point-of-Care* 2.21 ng/ml (0.01-0.04)
[2023-01-22] MEDS: HYDROmorphone 0.5 mg/0.5 ml inj IVP ×2 (14:00→15:51)
[2023-01-22 16:21] LABS: Troponin, Point-of-Care* 2.32 ng/ml (0.01-0.04)
[2023-03-04 10:51] LABS: Troponin, Point-of-Care* 2.21 ng/ml (0.01-0.04)
== END 2023-01-22 17:31 | disposition home or self-care (01) ==
PROVIDERS: Emergency Provider Family Medicine
DX: M54.9 Dorsalgia, unspecified (principal); I95.9 Hypotension, unspecified; N18.6 End stage renal disease; R07.9 Chest pain, unspecified
CPT/HCPCS: 36415; 71275; 74174; 74176; 80048; 80076; 81001; 83735; 84484; 85018; 85025; 87086; 93005; 99285; A9270; J1170; J2270; J7050; Q9967

== ENCOUNTER 2023-01-27 05:35 | Emergency (ER) | payer OTHER, SELFPAY ==
[2023-01-27 05:45] VITALS: BP 122/69; PULSE 89; RESP 18; TEMP 36.7; O2SAT 100; BMI 24.6
--- NOTE | 2023-01-27 05:59 | ED.EPISTAXIS ---
History of Present Illness General Time Seen by Provider: 05:59 Date Seen: 01/27/23 Chief Complaint: Epistaxis/Nosebleed Stated Complaint: nose bleed Time Seen by Provider: 01/27/23 05:51 Source: patient, RN notes reviewed and old records reviewed Mode of arrival: ambulatory Limitations: no limitations History of Present Illness HPI Narrative: Patient is a very pleasant 62-year-old gentleman with a history of chronic kidney disease requiring dialysis, Crohn's disease who comes to the emergency room with a nose bleed. Patient notes the onset of bleeding yesterday afternoon at approximately 1600 hours. He states that this has happened in the past but he has never had to seek attention for it as the bleeding usually stops after an hour so. He notes that since 1600 hours he has inserted a paper towel into his nose and every time he tries to take it out he has a large clot and continues to bleed. He is not feeling lightheaded. Patient notes being seeing in our ER on WednesdayJanuary 22 for chest pain. At that time received EKGs and a CT that were reassuring according to the patient. Patient notes that he also has brought with him in microbiology port from [place] which is where he goes for dialysis. He notes he was supposed to have dialysis this morning at 0530 but they declined because he had 2 positive blood cultures of g positive cocci in pairs and chains. He notes that [facility] stated they were going to give him an antibiotic but as long as he was coming to the emergency room they felt that we could take care of this. Patient denies cough, fever, chills, unusual body aches. He does make a small amount of urine any denies any dysuria. He is not allergic to any antibiotics. Related Data Home Medications Medication Instructions Recorded Confirmed amlodipine 10 mg tablet 10 mg PO DAILY 09/02/21 05/11/22 calcitriol 0.25 mcg capsule 1.5 mcg PO DAILY 09/02/21 05/11/22 calcium acetate(phosphat bind) 667 2,668 mg PO TID 09/02/21 05/11/22 mg tablet folic acid 1 mg tablet 1 mg PO DAILY 09/02/21 05/11/22 multivitamin 1 tab PO DAILY 09/02/21 05/11/22 omeprazole 20 mg capsule,delayed 20 mg PO DAILY 09/02/21 05/11/22 release simvastatin 20 mg tablet 20 mg PO DAILY 09/02/21 05/11/22 ustekinumab 90 mg/mL subcutaneous 90 mg subcut Q4W 09/02/21 05/11/22 syringe (Stelara) carvedilol 12.5 mg tablet 12.5 mg PO BID 05/11/22 05/11/22 gabapentin 100 mg capsule 200 mg PO HS 05/11/22 05/11/22 Allergies Allergy/AdvReac Type Severity Reaction Status Date / Time lisinopril Allergy Severe Verified 01/22/23 14:12 Review of Systems Status of ROS: Reports: 10 or more systems reviewed and unremarkable except as noted in History and below [facility] Medical History Acute Crohn's disease ?K50.90 - Crohn's disease, unspecified, without complications (ICD-10) Anemia ?D64.9 - Anemia, unspecified (ICD-10) NSTEMI (non-ST elevated myocardial infarction) ?I21.4 - Non-ST elevation (NSTEMI) myocardial infarction (ICD-10) HTN (hypertension) ?I10 - Essential (primary) hypertension (ICD-10) IPMN (intraductal papillary mucinous neoplasm) ?D49.0 - Neoplasm of unspecified behavior of digestive system (ICD-10) ESRD (end stage renal disease) on dialysis ?N18.6 - End stage renal disease (ICD-10) ?Z99.2 - Dependence on renal dialysis (ICD-10) ESRD (end stage renal disease) ?N18.6 - End stage renal disease (ICD-10) CAD (coronary artery disease) ?I25.10 - Atherosclerotic heart disease of [place] coronary artery without angina pectoris (ICD-10) Aortic dissection ?I71.00 - Dissection of unspecified site of aorta (ICD-10) A-fib ?I48.91 - Unspecified atrial fibrillation (ICD-10) Surgical History History of bowel resection ?Z90.49 - Acquired absence of other specified parts of digestive tract (ICD-10) Social History Smoking Status: Current every day smoker What tobacco products do you use: cigarettes Smoking packs per day: 0.25 Smoking cigarettes per day: 5.0 Do you use any of these nicotine containing products: None How often do you have a drink containing alcohol: never AUDIT-C Alcohol total score: 0 Non-prescribed substance use: denies use Exam Narrative: Exam Narrative: Patient is alert and oriented. Nontoxic in appearance. He presents with a rolled up paper towel in his right naris that does have some blood bleaching down outside of the Joyce. He does not appear to be coughing up blood. Heart with a regular rate and rhythm and lungs are clear bilaterally. Abdomen soft. No evidence of erythema or wounds or drainage over the fistula on the left. There is a resolving area of ecchymosis on his right volar forearm. Moving all extremities. Const: Vital Signs, click to edit/add: Vital Signs - 24 hr 01/27/23 05:45 01/27/23 08:24 01/27/23 09:00 Temperature 98.1 F Pulse Rate [Pulse Oximeter] 89 81 Respiratory Rate 18 16 Blood Pressure [Ri ght Upper Arm] 122/69 114/55 L 120/59 L Pulse Oximetry 100 96 Oxygen Delivery Me thod Room Air Room Air Oxygen Flow Rate 01/27/23 09:11 Temperature Pulse Rate [Pulse Oximeter] 82 Respiratory Rate Blood Pressure [Ri ght Upper Arm] Pulse Oximetry 93 Oxygen Delivery Me thod Nasal Cannula Oxygen Flow Rate 2 Documenting provider has reviewed patient's vital signs: yes Course Course ED Course: At this time patient presents with 2 separate issues. First he has bleeding from his right Joyce. Will use gently remove the packing and use Afrin followed by liquid cocaine to see if we can identify the area of bleeding. Will cauterize if needed. Secondly patient presents with positive blood cultures. I did asked why these were taken any states that this is routine and that he was not experiencing any specific symptoms for this to happen. These were collected on 01/25/2023 at 0910 hours. Again both bottles of his blood culture grew out Gram-positive cocci in pairs and chains. Will check a CBC, comprehensive, CRP and draw 1 set of blood cultures here in our emergency room. Plan on speaking to [facility] as well as primary regarding appropriate antibiotic choice. Reevaluation(s) Reevaluation #1: Gently the paper tile is removed from patient's right Joyce. I do note multiple areas of blood but no active bleeding at this time. Afrin used x2. Liquid cocaine soaked gauze then inserted. Reevaluation #2: I removed the gauze and I do see area of superficial bleeding just inside the nose on the septum. Silver nitrate stick used to cauterize this area. Patient denies the feeling that any blood is going down the back of his throat. Currently awaiting consult with [place] [facility] in regards to antibiotic choice. Reevaluation #3: Unfortunately in spite of cauterization patient did have continued bleeding. I did look in nostril once again and unable to identify a discrete area of bleeding at this time. I did insert a 5.5 rhino rocket. Balloon was inflated. Soaked initially in normal saline. Patient tolerated this very well and there is no ongoing bleeding. Consultations Consultation #1: I had the pleasure of speaking with Dr. Millard. At this time would recommend vancomycin at 10 milligrams/kilogram and thus 800 mg is ordered. Further, ceftriaxone [address] IV is ordered[address] Dr. Millard notes this should be repeated tomorrow after his dialysis. Vital Signs Vital signs: Initial Vital Signs Temperature 98.1 F 01/27/23 05:45 Temperature Source Temporal Artery Scan 01/27/23 05:45 Pulse Rate 89 01/27/23 05:45 Respiratory Rate 18 01/27/23 05:45 Blood Pressure 122/69 01/27/23 05:45 Blood Pressure Mean 86 01/27/23 05:45 Blood Pressure Position Sitting 01/27/23 05:45 Pulse Oximetry 100 01/27/23 05:45 Oxygen Delivery Method Room Air 01/27/23 05:45 Vital Signs Temperature 98.1 F 01/27/23 05:45 Pulse Rate 89 01/27/23 05:45 Respiratory Rate 18 01/27/23 05:45 Blood Pressure 122/69 01/27/23 05:45 Pulse Oximetry 100 01/27/23 05:45 Oxygen Delivery Method Room Air 01/27/23 05:45 Temperature 98.1 F 01/27/23 05:45 Pulse Rate 82 01/27/23 09:11 Respiratory Rate 16 01/27/23 08:24 Blood Pressure 120/59 L 01/27/23 09:00 Pulse Oximetry 93 01/27/23 09:11 Oxygen Delivery Method Nasal Cannula 01/27/23 09:11 Oxygen Flow Rate 2 01/27/23 09:11 Medications Administered Medications: Generic Name Dose Route Start Last Admin Trade Name Freq PRN Reason Stop Dose Admin Oxymetazoline HCl 1 spray 01/27/23 06:09 01/27/23 07:15 Oxymetazoline 0.05% Nasal [place] NOSTRIL-B 1 spray BID PRN Administration Discontinued Medications Generic Name Dose Route Start Last Admin Trade Name Freq PRN Reason Stop Dose Admin Cocaine HCl 4 ml 01/27/23 06:09 01/27/23 07:15 Cocaine Hcl 4 % 4 Ml Solution NOSTRIL-R 01/27/23 06:10 3 ml ONCE ONE Administration Vancomycin HCl 1,000 mg/ 260 mls @ 254 mls/hr 01/27/23 07:15 01/27/23 08:09 Sodium Chloride IVPB 01/27/23 08:16 Not Given ONCE ONE Protocol Ceftriaxone Sodium 1 gm/ 100 mls @ 200 mls/hr 01/27/23 07:15 01/27/23 08:44 Sodium Chloride IVPB 01/27/23 07:16 Infused ONCE ONE Infusion Vancomycin HCl 800 mg/ Sodium 258 mls @ 254 mls/hr 01/27/23 08:00 01/27/23 08:54 Chloride IVPB 01/27/23 09:00 254 mls/hr ONCE ONE Administration Protocol Silver Nitrate/Potassium Nitrate 1 each 01/27/23 06:09 01/27/23 07:15 Silver Nitrate Applicator 1 Each Stick..Ea. TOPICAL 01/27/23 06:10 1 each ONCE ONE Administration MDM - Epistaxis MDM Narrative Medical decision making narrative: 1. Epistaxis-anterior soft rhino packing inserted. Patient will need to follow up for on Wednesday with ENT for removal and evaluation. Advised sleeping with head of bed elevated. Patient will be on antibiotics to do not feel the need for prophylaxis at this time. Appointment for removal tomorrow at 0215 at the [facility] site with our ENT. 2. Bacteremia-will treat patient with ceftriaxone and vancomycin today per continuity clerk suggestion. I have also spoken with [facility] and instructed them to repeat antibiotics post dialysis tomorrow. Blood cultures were again done in the emergency room. Seek medical attention/return to the emergency room for fever, vomiting, worsening symptoms. 3. Anemia-hemoglobin 7.4. Previous value 7.9. Patient has no chest pain or shortness of breath today. He states that he gets very tired and weak when his hemoglobin gets low enough to need blood. He will need to have hemoglobin recheck tomorrow. 4. Disposition-home after receiving antibiotics. Return to the emergency room for worsening symptoms especially chest pain, shortness of breath and as needed. Follow up with dialysis as scheduled for tomorrow. Medical Records Attestation: I reviewed the patient's medical records. Lab Data Attestation: I reviewed the patient's lab results. Labs: Lab Results 01/27/23 Range/Units 06:22 WBC 6.94 (4.50-11.00) K/uL RBC 2.24 L (4.30-5.90) m/uL Hgb 7.4 L* (13.5-17.5) gm/dL Hct 23.9 L (37.0-53.0) % MCV 107 H (80-100) fL MCH 33 (26-34) pg MCHC 31 L (32-36) gm/dL RDW Coeff of Loretta 19.1 H (11.5-15.5) % Plt Count 124 L (140-440) K/uL Neut % (Auto) 86.6 H (42.0-72.0) % Lymph % (Auto) 4.8 L (20-44) % Bennett % (Auto) 6.6 (0.0-11.0) % Eos % (Auto) 0.3 (0.0-7.0) % Baso % (Auto) 0.7 (0.0-3.0) % Neut # (Auto) 6.00 (1.7-7.0) K/uL Lymph # (Auto) 0.30 L (0.90-2.90) K/uL Bennett # (Auto) 0.50 (0.00-0.90) K/UL Eos # (Auto) 0.02 (0.00-0.50) K/uL Baso # (Auto) 0.05 (0.00-0.30) K/uL Abs Immat Gran (auto) 0.07 (0.00-0.30) K/uL Imm/Tot Granulo (auto) 1.0 % INR 1.62 H (0.91-1.10) Sodium 130 L (135-149) mmol/L Potassium 4.0 (3.6-5.1) mmol/L Chloride 92 L (96-114) mmol/L Carbon Dioxide 29 (20-32) mmol/L Anion Gap 9 (7-15) mEq/L BUN 34 H (7-30) mg/dL Creatinine 7.5 H (0.5-1.5) mg/dL Estimated Creat Clear 10.74 Estimated GFR 8 ml/min Glucose 103 (60-115) mg/dL Calcium 8.9 (8.4-10.6) mg/dL Total Bilirubin 1.3 (0.1-1.5) mg/dL AST 22 (12-35) U/L ALT 19 (4-50) U/L Alkaline Phosphatase 66 (40-150) U/L C-Reactive Protein 7.5 H (0.5-1.0) mg/dL Total Protein 6.2 (6.0-8.3) g/dL Albumin 3.2 L (3.3-5.0) g/dL Discharge Plan Discharge Clinical Impression: Epistaxis, Bacteremia Anemia Qualifiers: Anemia type: due to chronic kidney disease Condition: Improved Additional Instructions: In regards to your nose bleed: Leave packing in place. I was able to arrange an appointment with our ENT tomorrow afternoon at 0215 at the [place] office for [facility]. The address is [address] [place] [address]. The office #[phone] Hensley In regards to your positive blood cultures: You received a dose of vancomycin and ceftriaxone here in the emergency room. You will need to receive a dose of those medications tomorrow after your dialysis. Dialysis will need to follow you in regards to the bacteria noted in the blood cultures. However, should use suddenly experience high fever, vomiting or worsening symptoms I would ask you return to the emergency room. Return to the [facility] emergency room for worsening symptoms especially chest pain or shortness of breath as your hemoglobin is low at 7.4 but appears to be within a normal range per your past hemoglobin tests. Prescriptions: No Action carvedilol 12.5 mg tablet 12.5 mg PO BID gabapentin 100 mg capsule 200 mg PO HS Stelara 90 mg/mL syringe 90 mg SUBCUT Q4W multivitamin Tablet 1 tab PO DAILY calcium acetate(phosphat bind) 667 mg tablet 2,668 mg PO TID Patient Comments: TAKE 4 TABLETS BY MOUTH THREE TIMES DAILY WITH MEALS AND TAKE 2 TABLETS WITH SNACKS TO EQUAL 14 TABLETS PER DAY folic acid 1 mg tablet 1 mg PO DAILY omeprazole 20 mg capsule,delayed release(DR/EC) 20 mg PO DAILY amlodipine 10 mg tablet 10 mg PO DAILY calcitriol 0.25 mcg capsule 1.5 mcg PO DAILY simvastatin 20 mg tablet 20 mg PO DAILY Follow Up/Referrals: Provider,Not a Local [Primary Care Provider] -
[2023-01-27 06:51] LABS: Basophils Absolute Auto 0.05 K/uL (0.00-0.30); Basophils Percent Auto 0.7 % (0.0-3.0); Eosinophils Absolute Auto 0.02 K/uL (0.00-0.50); Eosinophils Percent Auto 0.3 % (0.0-7.0); Hematocrit 23.9 % (37.0-53.0); Immature Granulocytes Abs Auto 0.07 K/uL (0.00-0.30); Lymphocytes Percent Auto 4.8 % (20-44); Mean Corpuscular HGB Conc 31 gm/dL (32-36); Mean Corpuscular Hemoglobin 33 pg (26-34); Mean Corpuscular Volume 107 fL (80-100); Monocytes Percent Auto 6.6 % (0.0-11.0); Neutrophils Percent Auto 86.6 % (42.0-72.0); Platelet Count* 124 K/uL (140-440); RDW Coefficient of Variation % 19.1 % (11.5-15.5); Red Blood Count 2.24 m/uL (4.30-5.90); White Blood Count* 6.94 K/uL (4.50-11.00)
[2023-01-27 07:05] LABS: Albumin* 3.2 g/dL (3.3-5.0); Chloride* 92 mmol/L (96-114)
[2023-01-27 07:06] LABS: Sodium* 130 mmol/L (135-149)
[2023-01-27 07:08] LABS: Bilirubin Total* 1.3 mg/dL (0.1-1.5); Creatinine* 7.5 mg/dL (0.5-1.5); Est. Creatinine Clearance* 10.74; Estimated Glomerular Filt Rate 8 ml/min
[2023-01-27 07:09] LABS: Alanine Aminotransferase* 19 U/L (4-50); Alkaline Phosphatase* 66 U/L (40-150); Anion Gap 9 mEq/L (7-15); Aspartate Amino Transferase* 22 U/L (12-35); Blood Urea Nitrogen* 34 mg/dL (7-30); Calcium* 8.9 mg/dL (8.4-10.6); Carbon Dioxide* 29 mmol/L (20-32); Glucose* 103 mg/dL (60-115); Total Protein* 6.2 g/dL (6.0-8.3)
[2023-01-27 07:12] LABS: C Reactive Protein* 7.5 mg/dL (0.5-1.0)
[2023-01-27 07:13] LABS: INR 1.62 (0.91-1.10); Prothrombin Time 20.3 Seconds
[2023-01-27] MEDS: OXYMETAZOLINE 0.05% NASAL SPRAY 1 SPRAY NOSTRIL-B (07:15)
[2023-01-27] MEDS: COCAINE HCL 4 % 4 ML SOLUTION NOSTRIL-R (07:15)
[2023-01-27] MEDS: SILVER NITRATE APPLICATOR 1 EACH STICK..EA. TOPICAL (07:15)
[2023-01-27 07:17] LABS: Hemoglobin* 7.4 gm/dL (13.5-17.5); Slide Review Reflex No
[2023-01-27] MEDS: cefTRIAXone 1 GM in 0.9 % SODIUM CHLORIDE Mini-bag 100 ML IVPB (08:11)
[2023-01-27 08:24] VITALS: BP 114/55; PULSE 81; RESP 16; O2SAT 96
[2023-01-27 09:00] VITALS: BP 120/59
--- NOTE | 2023-01-27 09:10 | ED.NURSE ---
Pt sleeping in room, O2 sats down to ~84% on RA while sleeping. notified, placed pt on 2L O2 NC.
[2023-01-27 09:11] VITALS: PULSE 82; O2SAT 93
== END 2023-01-27 10:04 | disposition home or self-care (01) ==
PROVIDERS: Emergency Provider Family Medicine
DX: R04.0 Epistaxis (principal)
CPT/HCPCS: 30901; 36415; 80053; 81001; 85025; 85610; 86140; 87040; 87186; 95992; 96365; 96366; 99284; A9270; J0696; J3370; J7050

== ENCOUNTER 2023-01-31 06:05 | Emergency (ER) | payer OTHER, SELFPAY ==
[2023-01-31 06:15] VITALS: BP 136/80; PULSE 111; RESP 22; TEMP 36.9; O2SAT 100
--- NOTE | 2023-01-31 06:36 | ED_ITS ---
HPI - General Adult General Chief complaint: Epistaxis/Nosebleed Stated complaint: Nose bleed Time Seen by Provider: 01/31/23 06:36 History of Present Illness HPI narrative: Patient returns to [place] ER with c/o nosebleed that started on Wednesday night at 2200. Patient was in on 01/26/23 for the same issue . Patient saw ENT on , where the packing was removed and another area was cauterized. Patient states he is worried his hgb is low, as that happened in the past and has required transfusions. Patient denies trauma/pain. 62-year-old man presenting to the emergency department for nose bleed since late last night. Had been seen 5 days ago and had rapid rhino balloon placed. At this time was also diagnosed with bacteremia initiated on antibiotics. Has not had any fever. This was pulled 3 days ago and cauterized with ENT. This was in the right naris. History chronic kidney disease and anemia. Does receive dialysis. Has been rather anemic in the mid sevens. Has been recommended to recheck his hemoglobin. Is not having pain. He thinks it is a big clot in his right maxillary sinus as he describes it. Has a humidifier on his home furnace at sounds. No bedroom humidifier nor does he use intranasal Vaseline/moisturizer. Related Data Home Medications Medication Instructions Recorded Confirmed amlodipine 10 mg tablet 10 mg PO DAILY 09/02/21 01/28/23 calcitriol 0.25 mcg capsule 1.5 mcg PO DAILY 09/02/21 01/28/23 calcium acetate(phosphat bind) 667 2,668 mg PO TID 09/02/21 01/28/23 mg tablet folic acid 1 mg tablet 1 mg PO DAILY 09/02/21 01/28/23 multivitamin 1 tab PO DAILY 09/02/21 01/28/23 omeprazole 20 mg capsule,delayed 20 mg PO DAILY 09/02/21 01/28/23 release simvastatin 20 mg tablet 20 mg PO DAILY 09/02/21 01/28/23 ustekinumab 90 mg/mL subcutaneous 90 mg subcut Q4W 09/02/21 01/28/23 syringe (Gabriel) carvedilol 12.5 mg tablet 12.5 mg PO BID 05/11/22 01/28/23 gabapentin 100 mg capsule 200 mg PO HS 05/11/22 01/28/23 Allergies Allergy/AdvReac Type Severity Reaction Status Date / Time lisinopril Allergy Severe Verified 01/28/23 14:17 Review of Systems Status of ROS: Reports: 6 or more systems reviewed and unremarkable except as noted in History and below [facility] Medical History Acute Crohn's disease ?K50.90 - Crohn's disease, unspecified, without complications (ICD-10) Anemia ?D64.9 - Anemia, unspecified (ICD-10) NSTEMI (non-ST elevated myocardial infarction) ?I21.4 - Non-ST elevation (NSTEMI) myocardial infarction (ICD-10) HTN (hypertension) ?I10 - Essential (primary) hypertension (ICD-10) IPMN (intraductal papillary mucinous neoplasm) ?D49.0 - Neoplasm of unspecified behavior of digestive system (ICD-10) ESRD (end stage renal disease) on dialysis ?N18.6 - End stage renal disease (ICD-10) ?Z99.2 - Dependence on renal dialysis (ICD-10) ESRD (end stage renal disease) ?N18.6 - End stage renal disease (ICD-10) CAD (coronary artery disease) ?I25.10 - Atherosclerotic heart disease of [place] coronary artery without angina pectoris (ICD-10) Aortic dissection ?I71.00 - Dissection of unspecified site of aorta (ICD-10) A-fib ?I48.91 - Unspecified atrial fibrillation (ICD-10) Surgical History History of bowel resection ?Z90.49 - Acquired absence of other specified parts of digestive tract (ICD- 10) Social History Smoking Status: Current every day smoker What tobacco products do you use: cigarettes Smoking packs per day: 0.25 Smoking cigarettes per day: 5.0 Do you use any of these nicotine containing products: None Second hand tobacco smoke exposure: No How often do you have a drink containing alcohol: never AUDIT-C Alcohol total score: 0 Non-prescribed substance use: denies use service: No Exam Narrative: Exam Narrative: Pleasant. Slim. Skin is sallow. Dialysis fistula noted the left arm. Breathing easily other than some nasopharyngeal congestion. Has a blood-stained toilet tissue rolled up as a tampon in the right nostril. There is some dry blood at the left naris. Oropharynx actually do not see much active bleeding right now. Heart is in elevated regular rate on palpation on auscultation. Removing the toilet tissue he has placed reveals a clot but lightly oozing from the right naris. I think source of blood will be the mid septum. I think nasal packing in this case will be inevitable. I do place therefore Merocel nasal packing. This seems to cause some nausea but he does not want any treatment for this or removal of the packing at this time. On initial reassessment does appear to have controlled any bleeding. Const: Vital Signs, click to edit/add: Vital Signs - 24 hr 01/31/23 06:15 Temperature 98.5 F Pulse Rate [Right Pulse Oximeter] 111 H Respiratory Rate 22 Blood Pressure [Ri ght Upper Arm] 136/80 Pulse Oximetry 100 Oxygen Delivery Me thod Room Air Documenting provider has reviewed patient's vital signs: yes Course Vital Signs Vital signs: Initial Vital Signs Temperature 98.5 F 01/31/23 06:15 Temperature Source Temporal Artery Scan 01/31/23 06:15 Pulse Rate 111 H 01/31/23 06:15 Respiratory Rate 22 01/31/23 06:15 Blood Pressure 136/80 01/31/23 06:15 Blood Pressure Mean 98 01/31/23 06:15 Blood Pressure Position Sitting 01/31/23 06:15 Pulse Oximetry 100 01/31/23 06:15 Oxygen Delivery Method Room Air 01/31/23 06:15 Vital Signs Temperature 98.5 F 01/31/23 06:15 Pulse Rate 111 H 01/31/23 06:15 Respiratory Rate 22 01/31/23 06:15 Blood Pressure 136/80 01/31/23 06:15 Pulse Oximetry 100 01/31/23 06:15 Oxygen Delivery Method Room Air 01/31/23 06:15 Temperature 98.5 F 01/31/23 06:15 Pulse Rate 111 H 01/31/23 06:15 Respiratory Rate 22 01/31/23 06:15 Blood Pressure 136/80 01/31/23 06:15 Pulse Oximetry 100 01/31/23 06:15 Oxygen Delivery Method Room Air 01/31/23 06:15 Medical Decision Making MDM Narrative Medical decision making narrative: See exam. Will also check hemoglobin/hematocrit and type and screen. May need transfusion. While low, hemoglobin thankfully is stable. Bleeding controlled with Merocel packing and is much more comfortable. See patient discharge plan Lab Data Lab results reviewed: Yes I reviewed the patient's lab results Labs: Lab Results 01/31/23 Range/Units 07:15 WBC 6.14 (4.50-11.00) K/uL RBC 2.26 L (4.30-5.90) m/uL Hgb 7.4 L* (13.5-17.5) gm/dL Hct 24.2 L (37.0-53.0) % MCV 107 H (80-100) fL MCH 33 (26-34) pg MCHC 31 L (32-36) gm/dL RDW Coeff of Loretta 19.1 H (11.5-15.5) % Plt Count 102 L (140-440) K/uL Neut % (Auto) 84.7 H (42.0-72.0) % Lymph % (Auto) 8.3 L (20-44) % [place]away % (Auto) 4.9 (0.0-11.0) % Eos % (Auto) 0.3 (0.0-7.0) % Baso % (Auto) 0.8 (0.0-3.0) % Neut # (Auto) 5.20 (1.7-7.0) K/uL Lymph # (Auto) 0.50 L (0.90-2.90) K/uL [place] # (Auto) 0.30 (0.00-0.90) K/UL Eos # (Auto) 0.02 (0.00-0.50) K/uL Baso # (Auto) 0.05 (0.00-0.30) K/uL Abs Immat Gran (auto) 0.06 (0.00-0.30) K/uL Imm/Tot Granulo (auto) 1.0 % Blood Type A Positive Antibody Screen NEGATIVE Discharge Plan Discharge Clinical Impression: Anemia of chronic disease, Epistaxis, recurrent Patient Disposition: Home, Self-Care Condition: Improved Additional Instructions: I would aim to pull this packing out on Wednesday this coming week. Since you are already receiving regular antibiotics I do not think we need to give any more with regard to this nasal packing. Light oozing from the packing/nose is probably okay. Prescriptions: No Action carvedilol 12.5 mg tablet 12.5 mg PO BID gabapentin 100 mg capsule 200 mg PO HS Stelara 90 mg/mL syringe 90 mg SUBCUT Q4W multivitamin Tablet 1 tab PO DAILY calcium acetate(phosphat bind) 667 mg tablet 2,668 mg PO TID Patient Comments: TAKE 4 TABLETS BY MOUTH THREE TIMES DAILY WITH MEALS AND TAKE 2 TABLETS WITH SNACKS TO EQUAL 14 TABLETS PER DAY folic acid 1 mg tablet 1 mg PO DAILY omeprazole 20 mg capsule,delayed release(DR/EC) 20 mg PO DAILY amlodipine 10 mg tablet 10 mg PO DAILY calcitriol 0.25 mcg capsule 1.5 mcg PO DAILY simvastatin 20 mg tablet 20 mg PO DAILY Follow Up/Referrals: Provider,Not a Local [Primary Care Provider] - Stand Alone Forms: GO-SIM Info Instructions
[2023-01-31 07:25] LABS: Basophils Absolute Auto 0.05 K/uL (0.00-0.30); Basophils Percent Auto 0.8 % (0.0-3.0); Eosinophils Absolute Auto 0.02 K/uL (0.00-0.50); Eosinophils Percent Auto 0.3 % (0.0-7.0); Hematocrit 24.2 % (37.0-53.0); Immature Granulocytes Abs Auto 0.06 K/uL (0.00-0.30); Lymphocytes Percent Auto 8.3 % (20-44); Mean Corpuscular HGB Conc 31 gm/dL (32-36); Mean Corpuscular Hemoglobin 33 pg (26-34); Mean Corpuscular Volume 107 fL (80-100); Monocytes Percent Auto 4.9 % (0.0-11.0); Neutrophils Percent Auto 84.7 % (42.0-72.0); Platelet Count* 102 K/uL (140-440); RDW Coefficient of Variation % 19.1 % (11.5-15.5); Red Blood Count 2.26 m/uL (4.30-5.90); White Blood Count* 6.14 K/uL (4.50-11.00)
[2023-01-31 07:31] LABS: Hemoglobin* 7.4 gm/dL (13.5-17.5); Slide Review Reflex No
== END 2023-01-31 07:54 | disposition home or self-care (01) ==
PROVIDERS: Emergency Provider Family Medicine
DX: R04.0 Epistaxis (principal); D64.9 Anemia, unspecified
CPT/HCPCS: 36415; 85025; 86850; 86900; 86901; 95992; 99283; 99284

== ENCOUNTER 2023-03-14 02:03 | Emergency (ER) | payer OTHER, SELFPAY ==
--- NOTE | 2023-03-14 02:27 | ED.GENADULT ---
HPI - General Adult General Stated complaint: left toe pain Time Seen by Provider: 03/14/23 02:18 History of Present Illness HPI narrative: Patient is a 63-year-old gentleman who unfortunately keep his and table while walking tonight nearly avulsing his left great toe nail. Patient has a severe pain and his nail bed but does not feel like he broke his toe. He can bear weight without any difficulty. He did put excessive amounts of gauze and tape on the toe but is coming in for further evaluation. Patient states his tetanus shot is up-to-date. He does not feel like his toes infected and has no other concerns at this time. The nail is still in place and there is no significant bleeding at this time. Related Data Home Medications Medication Instructions Recorded Confirmed amlodipine 10 mg tablet 10 mg PO DAILY 09/02/21 01/28/23 calcitriol 0.25 mcg capsule 1.5 mcg PO DAILY 09/02/21 01/28/23 calcium acetate(phosphat bind) 667 2,668 mg PO TID 09/02/21 01/28/23 mg tablet folic acid 1 mg tablet 1 mg PO DAILY 09/02/21 01/28/23 multivitamin 1 tab PO DAILY 09/02/21 01/28/23 omeprazole 20 mg capsule,delayed 20 mg PO DAILY 09/02/21 01/28/23 release simvastatin 20 mg tablet 20 mg PO DAILY 09/02/21 01/28/23 ustekinumab 90 mg/mL subcutaneous 90 mg subcut Q4W 09/02/21 01/28/23 syringe (Stelara) carvedilol 12.5 mg tablet 12.5 mg PO BID 05/11/22 01/28/23 gabapentin 100 mg capsule 200 mg PO HS 05/11/22 01/28/23 Allergies Allergy/AdvReac Type Severity Reaction Status Date / Time lisinopril Allergy Severe Verified 01/28/23 14:17 Review of Systems Status of ROS: Reports: 10 or more systems reviewed and unremarkable except as noted in History and below [facility] Medical History Acute Crohn's disease ?K50.90 - Crohn's disease, unspecified, without complications (ICD-10) Anemia ?D64.9 - Anemia, unspecified (ICD-10) NSTEMI (non-ST elevated myocardial infarction) ?I21.4 - Non-ST elevation (NSTEMI) myocardial infarction (ICD-10) HTN (hypertension) ?I10 - Essential (primary) hypertension (ICD-10) IPMN (intraductal papillary mucinous neoplasm) ?D49.0 - Neoplasm of unspecified behavior of digestive system (ICD-10) ESRD (end stage renal disease) on dialysis ?N18.6 - End stage renal disease (ICD-10) ?Z99.2 - Dependence on renal dialysis (ICD-10) ESRD (end stage renal disease) ?N18.6 - End stage renal disease (ICD-10) CAD (coronary artery disease) ?I25.10 - Atherosclerotic heart disease of [place] coronary artery without angina pectoris (ICD-10) Aortic dissection ?I71.00 - Dissection of unspecified site of aorta (ICD-10) A-fib ?I48.91 - Unspecified atrial fibrillation (ICD-10) Surgical History History of bowel resection ?Z90.49 - Acquired absence of other specified parts of digestive tract (ICD-10) Social History Smoking Status: Current every day smoker What tobacco products do you use: cigarettes Smoking packs per day: 0.25 Smoking cigarettes per day: 5.0 Do you use any of these nicotine containing products: None Second hand tobacco smoke exposure: No How often do you have a drink containing alcohol: never AUDIT-C Alcohol total score: 0 Non-prescribed substance use: denies use service: No Exam Narrative: Exam Narrative: EXAM GENERAL: Patient appears comfortable and well. EYES: No scleral icterus. ENT: Tympanic membranes and oropharynx normal. THYROID: no thyroid nodules or thyromegaly. LYMPH: No supraclavicular or cervical lymphadenopathy. SKIN: Visible skin seen during exam normal or with benign process only. EXT: Examination of the left great toe shows a partially avulsed nail. Hemostasis has been achieved. No signs of secondary infection. HEART: Regular rate and rhythm with no murmurs, rubs, or gallops. LUNGS: Clear to auscultation bilaterally with no crackles or wheezes. ABD: Soft, non tender, non distended. PSYCH: Good eye contact, speech is not pressured. Course Course ED Course: Patient seen and examined. Medical Decision Making MDM Narrative Medical decision making narrative: I did carefully examine the patient and nature that his tetanus shot is up-to-date. We did place triple antibiotic and redressed the nail/toe. He was instructed on wound care. I did provide limited supply of for a Vicodin 1-2 every 4-6 as needed. He can otherwise ice and follow up with his primary physician as needed. Discharge Plan Discharge Clinical Impression: Injury of toenail Patient Disposition: Home, Self-Care Condition: Stable Additional Instructions: Vicodin as directed Tylenol Change bandage daily Follow-up with your doctor as needed. Activity Level: No Restrictions Discharge Diet: Regular Prescriptions: No Action carvedilol 12.5 mg tablet 12.5 mg PO BID gabapentin 100 mg capsule 200 mg PO HS Stelara 90 mg/mL syringe 90 mg SUBCUT Q4W multivitamin Tablet 1 tab PO DAILY calcium acetate(phosphat bind) 667 mg tablet 2,668 mg PO TID Patient Comments: TAKE 4 TABLETS BY MOUTH THREE TIMES DAILY WITH MEALS AND TAKE 2 TABLETS WITH SNACKS TO EQUAL 14 TABLETS PER DAY folic acid 1 mg tablet 1 mg PO DAILY omeprazole 20 mg capsule,delayed release(DR/EC) 20 mg PO DAILY amlodipine 10 mg tablet 10 mg PO DAILY calcitriol 0.25 mcg capsule 1.5 mcg PO DAILY simvastatin 20 mg tablet 20 mg PO DAILY Follow Up/Referrals: Provider,Not a Local [Primary Care Provider] - Stand Alone Forms: [employer] Info Instructions
[2023-03-14 02:28] VITALS: BP 135/72; PULSE 98; RESP 16; TEMP 36.4; O2SAT 98; BMI 19.4
--- OUTSIDE RECORDS SUMMARY | 2023-03-14 02:34 | XMS_ITS | Encounter Summary ---
Author Name Unknown Organization [facility] Address [address] [place] [address]. [place] [address] Care Team Providers Care Food Mobile Driver Name Role Phone Chapin Khan MD Unavailable [phone] Danya Barraza [facility] Unavailable [phone] Maximino Arredondo MD Primary Care Provider [phone] Jeanette French RN Unavailable [phone] Tammy Greenberg MD Unavailable [phone] Genaro Palacios MD Unavailable [phone] Claude Rucker MD Unavailable [phone] Delroy Gore APRN RECREATION SPECIALIST Unavailable [phone] Danya Barraza [facility] Unavailable [phone] Chapin Ruavlcaba MD Unavailable [phone] Encounter Details Date Type Department Care Team (Late st Contact Info) Description 2023 [facility] Medical Advice [facility] [address] [place] [address] Tammy Greenberg MD [address] [place] [address] [place] [address] Social History Tobacco Use Types Packs/Day Years Used Date Smoking Tobacco: Every Day Cigarettes 0.3 50 Last attempted to quit: 12/04/2019 Smokeless Tobacco: Never Alcohol Use Standard Drinks/Week Comments Yes 0 (1 standard drink = 0.6 oz pur e alcohol) rare AUDIT-C Answer Date Recorded Q1: How often do you have a drink containing alc ohol? Monthly or less 03/20/2020 Q2: How many drinks containi ng alcohol do you have on a typical day when you are drinking? Not asked 03/20/2020 Q3: How often do you have si x or more drinks on one occasion? Not asked 03/20/2020 PHQ-2 Answer Date Recorded PHQ-2 Score 0 01/12/2023 Adolescent Education Answer Date Record ed Getting School Help Needed Not on file 11/13 Sex and Gender Information Value Date Recorded Sex Assigned at Male 05/02/2020 10:54 AM CDT Gender Identity Male 05/02/2020 10:54 AM CDT Sexual Orientation Straight 05/02/2020 10 :54 AM CDT documented as of this encounter Plan of Treatment Upcoming Encounters Date Type Department Care Team (Late st Contact Info) Description 04/01/2023 1:15 PM STATE TROOPER Office Visit [address] [phone] Yolanda Wilkerson PA-C [address] [place] [address] [phone] 07/13/2023 8:00 AM CDT Virtual Visit [facility] [address] [place] [phone] Deuce Majano PA-C [address] [place] [address] [phone] documented as of this encounter Visit Diagnoses Not on filedocumented in this encounter Additional Health Concerns Infection Onset Date Last Indicated Resolved Time Rule Out C-difficile 03/10/2023 03/10/2023 024 5:57 PM STATE TROOPER documented as of this encounter Care Teams Food Mobile Driver Relationship Specialty Start Date End Date Maximino Arredondo MD [address] [place] [phone] PCP - General Family Medicine 04/02/21 Chapin Khan MD [address] [place] [address] [phone] Urology 05/10/20 aDnya Barraza, [facility] [address] [place] [address] [phone] Pharmacist Pharmacist Mortuary Technician 12/25/20 Jeanette French RN [address] [place] [address] [phone] Specialty Farm Reporter Gastroenterology 12/30/21 Tammy Greenberg MD [address] [place] [address] [phone] Cardiovascular Disease 02/24/22 Genaro Palacios MD [address] [id number] Assigned Heart and Vascular Provider 03/28/22 Claude Rucker MD [address] [place] [address] [phone] Assigned Surgical Provider 04/11/22 Delroy Gore APRN RECREATION SPECIALIST [address] [place] [address] [phone] Assigned Nephrology Provider 04/25/22 [facility] [address] [place] [address] [phone] Assigned MTM Pharmacist 12/05/22 Chapin Ruvalcaba MD [facility] [address] [place] [address] Assigned Gastroenterology Provider 02/06/23 documented as of this encounter
--- OUTSIDE RECORDS SUMMARY | 2023-03-14 02:34 | XMS_ITS | Encounter Summary ---
Author Name Unknown Organization [facility] Address [address] [place] [address]. [place] [address] Care Team Providers Care Aids Social Worker Name Role Phone Chapin Khan MD Unavailable [phone] Danya Barraza [facility] Unavailable [phone] Maximino Arredondo MD Primary Care Provider [phone] Jeanette French RN Unavailable [phone] Tammy Greenberg MD Unavailable [phone] Genaro Palacios MD Unavailable [phone] Claude Rucker MD Unavailable [phone] Delroy Gore APRN INSPECTOR CRYSTAL Unavailable [phone] Danya Bararza [facility] Unavailable [phone] Chapin Ruvalcaba MD Unavailable [phone] Encounter Details Date Type Department Care Team (Latest Contact Info) Description 03/06/2023 Travel Social History Tobacco Use Types Packs/Day Years [...] st Contact Info) Description 04/01/2023 1:15 PM HUMAN SERVICES WORKER Office Visit [address] [phone] Yolanda Wilkerson, PA-C [address] [place] [address] [phone] 07/13/2023 8:00 AM CDT Virtual Visit [facility] [address] [place] [phone] Deuce Majano PA-C [address] [place] [address] [phone] documented as of this encounter Visit Diagnoses Not on filedocumented in this encounter Care Teams Aids Social Worker Relationship Specialty Start Date End Date Maximino Arredondo MD [address] [place] [phone] PCP - General Family Medicine 04/02/21 Chapin Khan MD [address] [place] [address] Urology 05/10/20 Danya Barraza, [facility] [address] [place] [phone] Pharmacist Pharmacist Supervisor Of Instruction 12/25/20 Jeanette French, RN [address] [place] [address] [phone] Specialty Button [facility] 12/30/21 Tammy Greenberg MD [address] [place] [address] [address] [place], [place] 656105 Cardiovascular Disease 02/24/22 Genaro Palacios MD [address] [phone] Assigned Heart and Vascular Provider 03/28/22 Claude Rucker MD [address] [place] [address] [phone] Assigned Surgical Provider 04/11/22 Delroy Gore, TASSEL MAKING MACHINE OPERATOR INSPECTOR CRYSTAL [address] [place] [address] [phone] Assigned Nephrology Provider 04/25/22 Danya Barraza, [facility] [address] [place] [address] Assigned MTM Pharmacist 12/05/22 Chapin Ruvalcaba MD [address] [place] [address] [address] [place] [address] Assigned Gastroenterology Provider 02/06/23 documented as of this encounter
--- OUTSIDE RECORDS SUMMARY | 2023-03-14 02:34 | XMS_ITS | Encounter Summary ---
Author Name Unknown Organization [facility] Address [address] [place] [address]. [place] [address] Care Team Providers Care Release Coordinator Name Role Phone Chapin Khan MD Unavailable [phone] Danya Barraza [facility] Unavailable [phone] Maximino Arredondo MD Primary Care Provider [phone] Jeanette French RN Unavailable [phone] Tammy Greenberg MD Unavailable [phone] Genaro Palacios MD Unavailable [phone] Claude Rucker MD Unavailable [phone] Delroy Goer APRN LAPEL PADDER BLINDSTITCH Unavailable [phone] Danya Barraza [facility] Unavailable [phone] Chapin Ruvalcaba MD Unavailable [phone] Encounter Details Date Type Department Care Team (Latest Contact Info) Description 03/10/2023 Travel Social History Tobacco Use Types Packs/Day [...] st Contact Info) Description 04/01/2023 1:15 PM TRAVELING OPERATOR Office Visit [address] [phone] Yolanda Wilkerson PA-C [address] [place] [address] [phone] 07/13/2023 8:00 AM CDT Virtual Visit [facility] [address] [place] [phone] Deuce Majano PA-C [address] [place] [address] [phone] documented as of this encounter Visit Diagnoses Not on filedocumented in this encounter Additional Health Concerns Infection Onset Date Last Indicated Resolved Time Rule Out C-difficile 03/10/2023 03/10/2023 024 5:57 PM TRAVELING OPERATOR documented as of this encounter Care Teams Release Coordinator Relationship Specialty Start Date End Date Maximino [place] [address] PCP - General Family Medicine 04/02/21 Chapin Khan MD [address] [place] [address] Urology 05/10/20 Danya Barraza [facility] [address] [place] [address] [phone] Pharmacist Pharmacist Senior Coldfusion Developer 12/25/20 Jeanette French, RN [address] [place] [address] Specialty Manager [facility]i Gastroenter[facility] 12/30/21 Tammy Greenberg MD [address] [facility] [address] [place], [place] [phone] Cardiovascular Disease 02/24/22 Genaro Palacios MD [address] [facility] [address] [place], [place] 618645 Assigned Heart and Vascular Provider 03/28/22 Claude Rucker MD [address] [place] [address] [phone] Assigned Surgical Provider 04/11/22 Delroy Gore, OBGYN SPECIALIST LAPEL PADDER BLINDSTITCH [address] [place] [address] [phone] Assigned Nephrology Provider 04/25/22 [facility] [address] [place] [address] [phone] Assigned MTM Pharmacist 12/05/22 Chapin Ruvalcaba MD 6 [facility] [address] [place], [place] 529[address] Assigned Gastroenterology Provider 02/06/23 documented as of this encounter
--- OUTSIDE RECORDS SUMMARY | 2023-03-14 02:34 | XMS_ITS | Clinical Summary ---
Author Name Unknown Organization [facility] Address [address] [place] [address]. [place] [address] Care Team Providers Care Structural Test Engineer Name Role Phone Chapin Khan MD Unavailable [phone] Danya Barraza [facility] Unavailable Maximino Arredondo MD Primary Care Provider [phone] Jeanette French RN Unavailable [phone] Tammy Fink MD Unavailable [phone] Genaro Palacios MD Unavailable [phone] Claude Rucker MD Unavailable [phone] Delroy Gore APRN BONDING SUPERVISOR Unavailable Danya Barraza [facility] Unavailable [phone] Chapin Ruvalcaba MD Unavailable [phone] Allergies Active Allergy Reactions Criticality Noted Date Comments Lisinopril Anaphylaxis,Other (S ee Comments) High 11/11/2019 Shortness of breath Medications Medication Sig Dispensed Refills Start Date End Date Status omeprazole (PRILOSEC) [address] capsule Take 20 mg by mouth every morning 0 12/14/2019 Active simvastatin (ZOCOR) 20 MG tablet Take 20 mg by mouth every morning 0 04/24/2020 Active multivitamin RENAL (MULTIVITAMIN RENAL) 1 MG capsule Take 1 capsule by mouth every morning 0 03/18/2021 Active calcium acetate (CALPHRON) 667 MG TABS tablet Take 2,668 mg by mouth 3 times daily 0 01/17/2021 Active folic acid (FOLVITE) 1 MG tablet Take 1 mg by mouth every morning 0 04/05/2021 Active lidocaine-prilocai ne (EMLA) 2.5-2.5 % external cream three times a week Prior to dialysis site access on Wednesday, Wednesday, Wednesday 0 03/31/2021 Active amLODIPine (NORVASC) 10 MG tablet Take 10 mg by mouth daily 0 01/05/2022 Active carvedilol (COREG) 12.5 MG tablet Take 12.5 mg by mouth 2 times daily 0 03/16/2022 03/16/2023 Active ustekinumab (STELARA) 90 MG/MLIndications:C rohn's disease of large intestine with complication (H) Inject 1 ml ( 90 mg) subcutaneous every 4 weeks. 1 mL 5 12/02/2022 Active budesonide (ENTOCORT EC) 3 MG EC capsuleIndications :Crohn's disease of both small and large intestine with other complication (H) Take 3 capsules (9 mg) by mouth every morning for 30 days 90 capsule 0 03/12/2023 04/11/2023 Active Hospital, Clinic, or Other Facility Administered Medication Ordered Dose Route Frequency Start Date End Date Status lidocaine 1% with EPINEPHrine 1:100,000 injection 3 mLIndications:Neoplasm of unspecified behavior of bone, soft tissue, and skin 3 mL ID ONCE 10/03/2021 Act vadim Active Problems Problem Noted Date Diagnosed Date Anemia 06/19/2022 Aortic dissection, abdominal 04/17/2022 Current smoker 04/17/2022 History of basal cell carcinoma 04/17/2022 CAD (coronary artery disease) 04/17/2022 Status post repair of arteriovenous fistula 03/18 IPMN (intraductal papillary mucinous neoplasm) 0 05/01/2021 Crohn's disease of large intestine 01/06/2021 ESRD (end stage renal disease) 06/10/2020 Overview: Added automatically from request for surgery [id number] Organ transplant candidate 06/10/2020 Overview: Added automatically from request for surgery [id number] PAF (paroxysmal atrial fibrillation) 06/10/2020 Benign essential hypertension 06/10/2020 Acquired cyst of kidney 06/07/2020 Resolved Problems Problem Noted Date Diagnosed Date Resolved Date NSTEMI (non-ST elevated myoc ardial infarction) 06/10/2020 04/17/2022 Encounters Date Type Department Care Team Description 03/10/2023 11:30 AM MATHEMATICS FACULTY MEMBER Lab [facility] [address] [place] [phone] Crohn's disease of both small and large intestine with other complication (H) 03/10/2023 Travel 2023 MyC Medical Advice [facility] [address] [place] [phone] Romi Fairbanks MD Active GI symptoms 2023 MyC Medical Advice [facility] [address] [phone] Tammy Fink MD 03/06/2023 11:15 AM MATHEMATICS FACULTY MEMBER Lab [facility] [address] [place] [phone] Chronic kidney disease, stage V (H); Pre-transplant evaluation for kidney transplant; Cardiovascular disease; End stage renal disease (H); Essential hypertension; Crohn's disease of large intestine (H); IPMN (intraductal papillary mucinous neoplasm) 03/06/2023 Travel 03/05/2023 Travel 02/25/2023 1:29 PM MATHEMATICS FACULTY MEMBER Anesthesia Event [facility] [address] [place] [phone] Marcus Murray MD [place], Kara N, PATENT LEATHER SORTER NUTRITION SERVICES WORKER 02/25/2023 1:00 PM MATHEMATICS FACULTY MEMBER - 02/25/2023 11:59 PM MATHEMATICS FACULTY MEMBER Hospital Encounter [facility] [address] [place] [phone] Tammy Fink MD Mitral valve disorder Discharge Disposition: Home or Self Care 02/25/2023 1:00 PM MATHEMATICS FACULTY MEMBER - 02/25/2023 2:10 PM MATHEMATICS FACULTY MEMBER Surgery [facility] [address] [place] [phone] GENERIC ANESTHESIA PROVIDER ECHOCARDIOGRAM, TRANSESOPHAGEAL, WITH ANESTHESIA 02/25/2023 10:20 AM MATHEMATICS FACULTY MEMBER - 02/25/2023 3:28 PM MATHEMATICS FACULTY MEMBER Hospital Encounter [facility] [place] [address] [place] [phone] Tammy Fink MD Discharge Disposition: Home or Self Care 02/24/2023 Travel 02/18/2023 MyC Medical Advice [address] [phone] Pennie Latham 02/18/2023 Travel 02/11/2023 9:39 AM MATHEMATICS FACULTY MEMBER - 02/11/2023 11:59 PM MATHEMATICS FACULTY MEMBER Hospital Encounter [facility] [address] [place] [phone] Tammy Fink MD Mitral valve disorder; Aortic valve disorder; Tricuspid valve disorder; CKD (chronic kidney disease) stage 5, GFR less than 15 ml/min (H); Organ transplant candidate Discharge Disposition: Home or Self Care 02/11/2023 Orders Only [address] [phone] Tammy Fink MD Mitral valve disorder (Primary Dx) 02/09/2023 9:15 AM MATHEMATICS FACULTY MEMBER Office Visit [address] [phone] Tammy Fink MD Mitral valve disorder (Primary Dx); Aortic valve disorder; Tricuspid valve disorder; CKD (chronic kidney disease) stage 5, GFR less than 15 ml/min (H); Organ transplant candidate 02/09/2023 6:45 AM MATHEMATICS FACULTY MEMBER - 02/09/2023 11:59 PM MATHEMATICS FACULTY MEMBER Hospital Encounter [facility] [address] [place] [phone] Tammy Fink MD CAD (coronary artery disease) Discharge Disposition: Home or Self Care 02/09/2023 Travel 02/02/2023 Travel 02/01/2023 9:20 AM MATHEMATICS FACULTY MEMBER [facility] [address] [place] [phone] Chapin Ruvalcaba MD IPMN (intraductal papillary mucinous neoplasm) (Primary Dx) 02/01/2023 MyC Medical Advice [facility] [address] [phone] Roslyn Foley, RN 02/01/2023 Telephone [facility] [address] [place] [phone] Chapin Ruvalcaba MD 01/28/2023 MyC Medical Advice [facility] [address] [phone] Roslyn Foley, FATOUMATA 01/13/2023 Telephone [facility] [address] [phone] Deuce Majano PA-C Appointment (GI follow-up order) 01/12/2023 8:00 AM MATHEMATICS FACULTY MEMBER Virtual Visit [facility] [address] [phone] Romi Fairbanks MD Pitzl, Andrea Jo, PA-C Crohn's disease of both small and large intestine with other complication (H) (Primary Dx) 01/04/2023 Orders Only [facility] [address] [place] [phone] Rebeca Burns RN History of tobacco use (Primary Dx); Cardiovascular disease; Pre-transplant evaluation for kidney transplant; End stage renal disease (H); Essential hypertension 01/04/2023 Telephone [facility] [address] [phone] Romi Fairbanks MD Prior Auth - Medication (Stelara ) 12/31/2022 MyC Medical Advice [facility] [address] [phone] Jeanette French, RN Symptom Check 12/25/2022 MyC Medical Advice [facility] [address] [phone] Sarah Munoz 12/25/2022 MyC Medical Advice [facility] [address] [phone] Roslyn Foley, FATOUMATA 12/22/2022 Telephone [facility] [address] [phone] Tammy Fink MD 12/22/2022 Orders Only [facility] [address] [phone] Tammy Fink MD CAD (coronary artery disease) (Primary Dx) 12/17/2022 Orders Only [facility] [address] [place] [phone] Outside, Provider 12/15/2022 MyC Medical Advice [facility] [address] [place] [phone] Rebeca Burns RN 12/14/2022 Telephone [facility] [address] [place] [phone] Chapin Ruvalcaba MD Appointment (Called to check in and room for 10:40 video visit, Patient stated needs to cancel due to being at Dialysis and getting an EEG for 1 hour. //) from Last 3 Months Immunizations Name Administration Dates Next Due Flu 65+ Years 11/05/2011, 1,11/08/2009,10/24,12/15/2006,02/03/2005,11/29/2000 Flu, Unspecified 12/15/2021, 2,02/12/2021,12/11,12/10/2019 HIB(PRP-OMP)(PedvaxHIB) 01/21/2021 Hepatitis B, Adult 07/30/2021,04/02/2021, 021 Influenza (intradermal) 12/10/2019 Influenza Vaccine, 6+MO IM (QUADRIVALENT W/PRESERVATIVES) 11/09/2012 Meningococcal ACWY (Menactra??) 04/02/2021 Meningococcal ACWY (Menveo??) 01/21/2021 Meningococcal B (Bexsero??) 02/25/2021, Pneumo Conj 13-V (2009&after) 02/25/2021 Pneumococcal 23 valent 04/28/2021 Pneumococcal, Unspecified 01/22/2020,12/25/1993 Zoster recombinant adjuvante d (SHINGRIX) 04/28/2021,02/25/2021 Family History Medical History Relation Comments Hypertension Brother Coronary Artery Disease Father Breast Cancer Mother Anesthesia Reaction No family hx of Thrombosis No family hx of Relation Status Comments Brother Father Mother Social History Tobacco Use Types Packs/Day Years Used Date Smoking Tobacco: Every Day Cigarettes 0.3 50 Last attempted to quit: 12/04/2019 Smokeless Tobacco: Never Tobacco Cessation:Ready to Q uit: Not Asked; Counseling Given: Not Answered Alcohol Use Standard Drinks/Week Comments Yes 0 [...] Orientation Straight 05/02/2020 10 :54 AM CDT Last Filed Vital Signs Vital Sign Reading Time Taken Comments Blood Pressure 113/72 02/25/2023 2:45 PM MATHEMATICS FACULTY MEMBER Pulse 103 02/25/2023 10:38 AM MATHEMATICS FACULTY MEMBER Temperature 36.4 ??C (97.5 ??F) 02/25/2023 2:45 PM CS T Respiratory Rate 16 02/25/2023 2:45 PM MATHEMATICS FACULTY MEMBER Oxygen Saturation 98% 02/25/2023 2:45 PM MATHEMATICS FACULTY MEMBER Inhaled Oxygen Concentration - - Weight 75.5 kg (166 lb 7.2 oz) 02/25/2023 10:38 AM MATHEMATICS FACULTY MEMBER Height 180.3 cm (5' 11) 02/25/2023 10:38 AM MATHEMATICS FACULTY MEMBER Body Mass Index 23.21 02/25/2023 10:38 AM MATHEMATICS FACULTY MEMBER Plan of Treatment Upcoming Encounters Date Type Department Care Team (Late st Contact Info) Description 04/01/2023 1:15 PM MATHEMATICS FACULTY MEMBER Office Visit [address] [phone] Yolanda Wilkerson, PAAnhC [address] [place] [phone] 07/13/2023 8:00 AM CDT Virtual Visit [facility] [address] [place] [phone] Deuce Majano PA-C [address] [place] [phone] Health Maintenance Due Date Last Done Comments ADVANCE CARE PLANNING 1960 ANNUAL REVIEW OF HM ORDERS 1959 CT COLONOGRAPHY 1959 FIT 1959 FLEX SIG 1959 PARATHYROID 1959 sDNA (Cologuard) 1959 MICROALBUMIN 07/12/2007 04/13/2007 YEARLY PREVENTIVE VISIT 04/12/2010 04/12/19 10, 04/01/2007, 02/03/2005, Additional history exists RSV VACCINE ( & 60+) (1 - 1-dose 60+ series) 2019 LIPID 07/09/2021 07/09/2020 COLONOSCOPY 07/22/2022 01/21/2022, 12/08/2021, 09/03/2020, Additional history exists COLORECTAL CANCER SCREENING 07/22/2022 HEPATITIS B IMMUNIZATION (4 of 4 - Risk Dialysis Recombivax 3-dose series) 07/30/2022 07/30/2021, 04/02/2021, 01/21/2021 COVID-19 Vaccine (4 - season) 2022 01/13/2021, 04/10/2020, 03/13/2020 PHQ-2 (once per calendar year) 2023 01/12/2023, 11/26/2022, 07/08/2022, Additional history exists BMP 06/05/2023 03/06/2023, 11/16, 09/23/2022, Additional history exists HEMOGLOBIN 09/04/2023 03/06/2023, 11/16, 09/23/2022, Additional history exists NICOTINE/TOBACCO CESSATION COUNSELING Q 1 YR 11/27/2023 11/26/2022 LUNG CANCER SCREENING 12/09/2023 12/08/2022 Pneumococcal Vaccine: Pediatrics (0 to 5 Years) and At-Risk Patients (6 to 64 Years) (3 of 3 - PPSV23 or PCV20) 04/28/2026 04/28/2021, 02/25/2021, 01/22/2020, Additional history exists DTAP/TDAP/TD IMMUNIZATION (2 - Td or Tdap) 07/29/2032 07/29/2022 HEPATITIS C SCREENING Completed 05/09/2020 HIV SCREENING Completed 05/09/2020 URINALYSIS Completed 05/09/2020, 10/17, 04/13/2007, Additional history exists MENINGITIS IMMUNIZATION Aged Out 04/02/2021, 01/21 No longer eligible based on patient's age to complete this topic ZOSTER IMMUNIZATION Completed 04/28/2021, 2 PHOSPHORUS Completed 05/05/2021, 10/17, 11/11/2019, Additional history exists INFLUENZA VACCINE Completed 11/26/2022, , 10/20/2021, Additional history exists ALK PHOS Completed 03/06/2023, 11/16, 09/23/2022, Additional history exists HPV IMMUNIZATION Aged Out No longer e ligible based on patient's age to complete this topic IPV IMMUNIZATION Aged Out No longer e ligible based on patient's age to complete this topic RSV MONOCLONAL ANTIBODY Aged Out No l onger eligible based on patient's age to complete this topic Medical Devices Implanted Type Area Pressure Sealer And Tester Device Identifier Shelf Expiration Date Model / Serial / Lot [place] Graft Implanted:Qty : 1 on 03/31/2022 by Genaro Palacios MD at [facility] Graft Left: Arm [employer] [id number] 12/01/2026 [id number] / [id number] / Procedures Procedure Name Priority Date/Time Associated Diagnosis Comments ENTERIC BACTERIA AND VIRUS PANEL BY PCR Routine 03/10/2023 11:45 AM MATHEMATICS FACULTY MEMBER Crohn's disease of both small and large intestine with other complication (H) C. DIFFICILE TOXIN B PCR WITH REFLEX TO C. DIFFICILE ANTIGEN AND TOXINS A/B EIA Routine 03/10/2023 11:45 AM MATHEMATICS FACULTY MEMBER Crohn's disease of both small and large intestine with other complication (H) CALPROTECTIN FECES Routine 03/10/2023 11 :45 AM MATHEMATICS FACULTY MEMBER Crohn's disease of both small and large intestine with other complication (H) ELASTASE FECAL Routine 03/10/2023 10:30 AM MATHEMATICS FACULTY MEMBER IPMN (intraductal papillary mucinous neoplasm) CBC WITH PLATELETS & DIFFERENTIAL Routine 03/06/2023 10:28 AM MATHEMATICS FACULTY MEMBER Crohn's disease of large intestine (H) DIFFERENTIAL Routine 03/06/2023 10:28 AM MATHEMATICS FACULTY MEMBER Crohn's disease of large intestine (H) CBC WITH PLATELETS AND DIFFERENTIAL Routine 03/06/2023 10:28 AM MATHEMATICS FACULTY MEMBER Crohn's disease of large intestine (H) ERYTHROCYTE SEDIMENTATION RATE AUTO Routine 03/06/2023 10:28 AM MATHEMATICS FACULTY MEMBER Crohn's disease of large intestine (H) COMPREHENSIVE METABOLIC PANEL Routine 03/06/2023 10:28 AM MATHEMATICS FACULTY MEMBER Crohn's disease of large intestine (H) CRP INFLAMMATION Routine 03/06/2023 10:2 8 AM MATHEMATICS FACULTY MEMBER Crohn's disease of large intestine (H) ECHO MÓNICA Routine 02/25/2023 3:12 PM MATHEMATICS FACULTY MEMBER Mitral valve disorder ECHOCARDIOGRAM, TRANSESOPHAGEAL, WITH ANESTHESIA 02/25/2023 1:28 PM MATHEMATICS FACULTY MEMBER Mitral stenosis ECHO MÓNICA Routine 02/11/2023 12:29 PM MATHEMATICS FACULTY MEMBER Mitral valve disorder Aortic valve disorder Tricuspid valve disorder CKD (chronic kidney disease) stage 5, GFR less than 15 ml/min (H) Organ transplant candidate ECHO COMPLETE Routine 02/09/2023 8:08 AM MATHEMATICS FACULTY MEMBER CAD (coronary artery disease) HLA RESULT REPORT 12/17/2022 12: 31 PM CDT HLA RESULT REPORT 12/17/2022 12: 31 PM CDT from Last 3 Months Results * Enteric Bacteria and Virus Panel PCR (03/10/2023 11:45 AM MATHEMATICS FACULTY MEMBER) Campylobacter species Negative Negative 03/10/2023 7:04 PM MATHEMATICS FACULTY MEMBER [facility] Salmonella species Negative Negative 2023 7:04 PM MATHEMATICS FACULTY MEMBER [facility] Vibrio species Negative Negative 03/10/2023 7:04 PM MATHEMATICS FACULTY MEMBER [facility] Vibrio cholerae Negative Negative 7:04 PM MATHEMATICS FACULTY MEMBER [facility] Yersinia enterocolitica Negative Negative 03/10/2023 7:04 PM MATHEMATICS FACULTY MEMBER [facility] Enteropathogenic E. coli (EPEC) Negative Negative, NA 03/10/2023 7:04 PM MATHEMATICS FACULTY MEMBER [facility] Shiga-like toxin-producing E. coli (STEC) Negative Negative 03/10/2023 7:04 PM MATHEMATICS FACULTY MEMBER [facility] Shigella/Enteroinvas vadim E. coli (EIEC) Negative Negative 03/10/2023 7:04 PM MATHEMATICS FACULTY MEMBER [facility] Cryptosporidium species Negative Negative 03/10/2023 7:04 PM MATHEMATICS FACULTY MEMBER [facility] Giardia lamblia Negative Negative 7:04 PM MATHEMATICS FACULTY MEMBER [facility] Norovirus Gl/Gll Negative Negative 03/10/19 7:04 PM MATHEMATICS FACULTY MEMBER [facility] Rotavirus A Negative Negative 03/10/2023 7:04 PM MATHEMATICS FACULTY MEMBER [facility] Plesiomonas shigelloides Negative Negative 03/10/2023 7:04 PM MATHEMATICS FACULTY MEMBER [facility] Enteroaggregative E. coli (EAEC) Negative Negative 03/10/2023 7:04 PM MATHEMATICS FACULTY MEMBER [facility] Enterotoxigenic E. coli (ETEC) Negative Negative 03/10/2023 7:04 PM MATHEMATICS FACULTY MEMBER [facility] E. coli O157 NA Negative, NA 03/10/2023 7:04 PM MATHEMATICS FACULTY MEMBER [facility] Cyclospora cayetanensis Negative Negative 03/10/2023 7:04 PM MATHEMATICS FACULTY MEMBER [facility] Entamoeba histolytica Negative Negative 03/10/2023 7:04 PM MATHEMATICS FACULTY MEMBER [facility] Adenovirus F40/41 Negative Negative 024 7:04 PM MATHEMATICS FACULTY MEMBER [facility] Astrovirus Negative Negative 03/10/2023 7:04 PM MATHEMATICS FACULTY MEMBER [facility] Sapovirus Negative Negative 03/10/2023 7:04 PM MATHEMATICS FACULTY MEMBER [facility] Stool RECTAL CONTENTS / Unknown Non-blood Collection / Unknown 03/10/2023 11:45 AM MATHEMATICS FACULTY MEMBER 03/10/2023 11:45 AM MATHEMATICS FACULTY MEMBER Narrative [facility] - 03/10/2023 7:04 PM MATHEMATICS FACULTY MEMBER Assay performed using the FDA-cleared FilmArray GI Panel from [employer] ??A negative result should not rule out infection in patients with a probability for gastrointestinal infection. The assay does not test for all potential infectious agents of diarrheal disease. ??Positive results do not distinguish between a viable or replicating organism and the presence of a nonviable organism or nucleic acid, nor do they exclude the possibility of coinfection by organisms not in the panel. ??Results are intended to aid in the diagnosis of illness and are meant to be used in conjunction with other clinical findings. This test has been verified and is performed by the [facility] Diagnostic [facility] at [facility]. This laboratory is certified under the Clinical Laboratory Improvement Amendments of 1988 (CLIA-88) as qualified to perform high complexity clinical laboratory testing. Deuce Majano PA-C LAB - MICRO GENERAL ORDERABLES Performing Organization Address [facility] de Phone Number [facility] Inf. Diseases Diag. Lab [address] [facility], [address] [address], [facility] [phone] * C. difficile Toxin B PCR with reflex to C. difficile Antigen and Toxins A/B EIA (03/10/2023 11:45 AM MATHEMATICS FACULTY MEMBER) [facility] C Difficile Toxin B by PCR Negative Negative 03/10/2023 5:57 PM MATHEMATICS FACULTY MEMBER [facility] Comment:A negative result do es not exclude actual disease due to C. difficile and may be due to improper collection, handling and storage of the specimen or the number of organisms in the specimen is below the detection limit of the assay. Stool RECTAL CONTENTS / Unknown Non-blood Collection / Unknown 03/10/2023 11:45 AM MATHEMATICS FACULTY MEMBER 03/10/2023 11:45 AM MATHEMATICS FACULTY MEMBER Narrative [facility] - 03/10/2023 5:57 PM MATHEMATICS FACULTY MEMBER The [employer] Xpert C. difficile Assay, performed on the [employer] GeneXpert?? Instrument Systems, is a qualitative in vitro diagnostic test for rapid detection of toxin B gene sequences from unformed (liquid or soft) stool specimens collected from patients suspected of having Clostridioides difficile infection (CDI). The test utilizes automated real-time polymerase chain reaction (PCR) to detect toxin gene sequences associated with toxin producing C. difficile. The Xpert C. difficile Assay is intended as an aid in the diagnosis of CDI. Deuce Majano PA-C LAB - MICRO GENERAL ORDERABLES Performing Organization Address [facility] Co de Phone Number [facility] Inf. Diseases Diag. Lab [address] [facility], [address] [address], [facility] [phone] * (ABNORMAL) Calprotectin Feces (03/10/2023 11:45 AM MATHEMATICS FACULTY MEMBER) Calprotectin Feces 75.5(H) 0.0 - 49.9 mg/kg 03/12/2023 9:35 AM MATHEMATICS FACULTY MEMBER [facility]/END O Comment:Borderline result, p lease re-evaluate and recollect a new sample in 4-6 weeks. Stool RECTAL CONTENTS / Unknown Non-blood Collection / Unknown 03/10/2023 11:45 AM MATHEMATICS FACULTY MEMBER 03/10/2023 11:45 AM MATHEMATICS FACULTY MEMBER Deuce Majano PA-C LAB - STOOLS [facility] CORE/PROT/ENDO Specialty Core/Prot/Endo [address] [facility], [address] [phone] * Elastase Fecal (03/10/2023 10:30 AM MATHEMATICS FACULTY MEMBER) Elastase Fecal 291.0 >199.9 ug/g 03/12/2023 9:36 AM MATHEMATICS FACULTY MEMBER SPECIALTY CORE/PROT/ENDO Stool RECTAL CONTENTS / Unknown Non-blood Collection / Unknown 03/10/2023 10:30 AM MATHEMATICS FACULTY MEMBER 03/10/2023 11:33 AM MATHEMATICS FACULTY MEMBER Chapin Ruvalcaba MD LAB - STOOLS [place] [place] [facility] CORE/PROT/ENDO Specialty Core/Prot/Endo [address] [facility], [address] [phone] * (ABNORMAL) CBC with platelets and differential (03/06/2023 10:28 AM MATHEMATICS FACULTY MEMBER) WBC Count 7.4 4.0 - 11.0 10e3/uL 03/06/2023 2:49 PM MATHEMATICS FACULTY MEMBER [facility] RBC Count 2.24(L) 4.40 - 5.90 10e6/uL 03/06/2023 2:49 PM MATHEMATICS FACULTY MEMBER [facility] Hemoglobin 8.3(L) 13.3 - 17.7 g/dL 03/06/2023 2:49 PM MATHEMATICS FACULTY MEMBER [facility] Hematocrit 27.0(L) 40.0 - 53.0 % 03/06/2023 2:49 PM MATHEMATICS FACULTY MEMBER [facility] MCV 121(H) 78 - 100 fL 03/06/2023 2:49 PM MATHEMATICS FACULTY MEMBER [facility] MCH 37.1(H) 26.5 - 33.0 pg 03/06/2023 2:49 PM MATHEMATICS FACULTY MEMBER [facility] MCHC 30.7(L) 31.5 - 36.5 g/dL 03/06/2023 2:49 PM MATHEMATICS FACULTY MEMBER [facility] RDW 21.1(H) 10.0 - 15.0 % 03/06/2023 2:49 PM MATHEMATICS FACULTY MEMBER [facility] Platelet Count 110(L) 150 - 450 10e3/uL 03/06/2023 2:49 PM MATHEMATICS FACULTY MEMBER [facility] % Neutrophils 03/06/2023 2:49 PM MATHEMATICS FACULTY MEMBER [facility] % Lymphocytes 03/06/2023 2:49 PM MATHEMATICS FACULTY MEMBER [facility] % Monocytes 03/06/2023 2:49 PM MATHEMATICS FACULTY MEMBER [facility] % Eosinophils 03/06/2023 2:49 PM MATHEMATICS FACULTY MEMBER [facility] % Basophils 03/06/2023 2:49 PM MATHEMATICS FACULTY MEMBER [facility] % Immature Granulocytes 03/06/2023 2:49 PM MATHEMATICS FACULTY MEMBER [facility] NRBCs per 100 WBC 0 <1 /100 024 2:49 PM MATHEMATICS FACULTY MEMBER [facility] Absolute Neutrophils 03/06/2023 2:49 PM MATHEMATICS FACULTY MEMBER [facility] LABORATORY Absolute Lymphocytes 03/06/2023 2:49 PM [employer] MEMBER [facility] LABORATORY Absolute Monocytes 03/06/2023 2:49 PM [employer] [facility] LABORATORY Absolute Eosinophils 03/06/2023 2:49 PM [employer]BER [facility] LABORATORY Absolute Basophils 03/06/2023 2:49 PM [employer]BER [facility] LABORATORY Absolute Immature Granulocytes 03/06/2023 2:49 PM [employer] [facility] LABORATORY Absolute NRBCs 0.0 10e3/uL 03/06/2023 2:49 PM [employer] [facility] LABORATORY Blood BLOOD SPECIMEN / Unknown Venipuncture / Unknown 03/06/2023 10:28 AM [employer]AC[employer]Y MEMBER 03/06/2023 10:28 AM [employer] MEMBER Romi Fairbanks MD LAB - BLOOD ORDERABL ES RH LABORATORY [facility] Care Lab [address] [facility] Lab (1st floor, no room number) [place] [address], [place] [phone] * (ABNORMAL) Erythrocyte sedimentation rate auto (03/06/2023 10:28 AM MATHEMAT[employer]AC[employer] MEMBER) Pathologist [facility] Erythrocyte Sedimentation Rate 64(H) 0 - 20 mm/hr 03/06/2023 10:46 AM [employer]HE[employer] FACULTY MEMBER LV LABORATORY Blood BLOOD SPECIMEN / Unknown Venipuncture / Unknown 03/06/2023 10:28 AM MAT[employer] FAC[employer]Y MEMBER 03/06/2023 10:28 AM [employer] MEMBER Romi Fairbanks MD LAB - BLOOD ORDERABL ES LV LABORATORY [facility] [address] [facility] Lab (no room number, 1st floor of clinic) [place] [address], [facility] [phone] * (ABNORMAL) Manual Differential (03/06/2023 10:28 AM MATHE[employer]AC[employer]Y MEMBER) Pathologist [facility] Emergency Department % Neutrophils 80 % 03/06/2023 2:49 PM [employer]BER RH LABORATORY % Lymphocytes 9 % 03/06/2023 2:49 PM [employer]BER RH LABORATORY % Monocytes 9 % 03/06/2023 2:49 PM [employer] MEMBER [facility] LABORATORY % Eosinophils 1 % 03/06/2023 2:49 PM [employer] MEMBER [facility] LABORATORY % Basophils 0 % 03/06/2023 2:49 PM [employer] MEMBER RH LABORATORY % Metamyelocytes 1 % 03/06/19 24 2:49 PM [employer] MEMBER RH LABORATORY Absolute Neutrophils 5.9 1.6 - 8.3 10e3/uL 03/06/2023 2:49 PM [employer] RH LABORATORY Absolute Lymphocytes 0.7(L) 0.8 - 5.3 10e3/uL 03/06/2023 2:49 PM [employer] MEMBER RH LABORATORY Absolute Monocytes 0.7 0.0 - 1.3 10e3/uL 03/06/2023 2:49 PM [employer]BER RH LABORATORY Absolute Eosinophils 0.1 0.0 - 0.7 10e3/uL 03/06/2023 2:49 PM [employer]BER RH LABORATORY Absolute Basophils 0.0 0.0 - 0.2 10e3/uL 03/06/2023 2:49 PM [employer] MEMBER RH LABORATORY Absolute Metamyelocytes 0.1(H) <=0.0 10e3/uL 03/06/2023 2:49 PM [employer] [facility] LABORATORY RBC Morphology Confirmed RBC Indices 03/06/2023 2:49 PM [employer]BER RH LABORATORY Platelet Assessment Automated Count Confirmed. Platelet morphology is normal. Automated Count Confirmed. Platelet morphology is normal. 03/06/2023 2:49 PM [employer]BER RH LABORATORY Elliptocytes Slight(A) None Seen 03/06/2023 2:49 PM [employer] MEMBER RH LABORATORY RBC Fragments Slight(A) None Seen 03/06/2023 2:49 PM [employer] MEMBER RH LABORATORY Blood BLOOD SPECIMEN / Unknown Venipuncture / Unknown 03/06/2023 10:28 AM MATHEMATICS FACULTY MEMBER 03/06/2023 10:28 AM [employer]AC[employer] MEMBER Romi Fairbanks MD LAB - BLOOD ORDERABL ES RH LABORATORY [facility] Acute Care Lab [address] Lab (1st floor, no room number) [place] [address], [facility] [phone] * (ABNORMAL) CRP inflammation (03/06/2023 10:28 AM [employer]HE[employer]AC[employer]Y MEMBER) CRP Inflammation 68.80(H) <5.00 mg/L 03/06/2023 6:03 PM MATHEMAT[employer] FACULTY MEMBER UU LABORATORY Blood BLOOD SPECIMEN / Unknown Venipuncture / Unknown 03/06/2023 10:28 AM MATHEMAT[employer] FACULTY MEMBER 03/06/2023 10:28 AM [employer]AC[employer] MEMBER Romi Fairbanks MD LAB - BLOOD ORDERABL ES U[facility] LABORATORY [facility] [address] [facility], [address] [place] [address], [place] [phone] * (ABNORMAL) Comprehensive metabolic panel (03/06/2023 10:28 AM MATHEMAT[employer] FAC[employer]Y MEMBER) Sodium 139 135 - 145 mmol/L 03/06/2023 6:03 PM MATHEMATICS FACULTY MEMBER [facility] LABORATORY Comment:Reference intervals for this test were updated on 11/10/2022 to more accurately reflect our healthy population. There may be differences in the flagging of prior results with similar values performed with this method. Interpretation of those prior results can be made in the context of the updated reference intervals. Potassium 3.8 3.4 - 5.3 mmol/L 03/06/2023 6:03 PM [employer]AC[employer] MEMBER [facility] LAB[facility]AT[facility] Carbon Dioxide (CO2) 26 22 - 29 mmol/L 03/06/2023 6:03 PM [employer]HEMAT[employer]AC[employer]Y MEMBER [facility] LAB[facility]AT[facility] Anion Gap 12 7 - 15 mmol/L 03/06/2023 6:03 PM MATHEMAT[employer] FACULTY MEMBER [facility] LAB[facility]AT[facility] Urea Nitrogen 26.1(H) 8.0 - 23.0 mg/dL 03/06/2023 6:03 PM [employer]AC[employer] MEMBER [facility] LAB[facility]AT[facility] Creatinine 5.88(H) 0.67 - 1.17 mg/dL 03/06/2023 6:03 PM [employer]HE[employer]AC[employer] MEMBER [facility] LAB[facility]AT[facility] GFR Estimate 10(L) >60 mL/min/1. 73m2 03/06/2023 6:03 PM [employer]AC[employer] MEMBER [facility] LAB[facility]AT[facility] Calcium 8.9 8.8 - 10.2 mg/dL 03/06/2023 6:03 PM [employer]HE[employer]AC[employer] MEMBER [facility] Chloride 101 98 - 107 mmol/L 03/06/2023 6:03 PM [employer]HE[employer]AC[employer] MEMBER [facility] Glucose 129(H) 70 - 99 mg/dL 03/06/2023 6:03 PM [employer]HE[employer]AC[employer] MEMBER [facility] Alkaline Phosphatase 119 40 - 150 U/L 03/06/2023 6:03 PM MATHEMAT[employer] FACULTY MEMBER [facility] Comment:Reference intervals for this test were updated on 12/29/2022 to more accurately reflect our healthy population. There may be differences in the flagging of prior results with similar values performed with this method. Interpretation of those prior results can be made in the context of the updated reference intervals. AST 36 0 - 45 U/L 03/06/2023 6:03 PM [employer]HE[employer]AC[employer] MEMBER [facility] Comment:Reference intervals for this test were updated on 07/27/2022 to more accurately reflect our healthy population. There may be differences in the flagging of prior results with similar values performed with this method. Interpretation of those prior results can be made in the context of the updated reference intervals. ALT 26 0 - 70 U/L 03/06/2023 6:03 PM [employer]HEMAT[employer] FACULTY MEMBER [facility] Comment:Reference intervals for this test were updated on 07/27/2022 to more accurately reflect our healthy population. There may be differences in the flagging of prior results with similar values performed with this method. Interpretation of those prior results can be made in the context of the updated reference intervals. Protein Total 6.1(L) 6.4 - 8.3 g/dL 03/06/2023 6:03 PM [employer]HE[employer]AC[employer] MEMBER [facility] LAB[facility] Albumin 3.2(L) 3.5 - 5.2 g/dL 03/06/2023 6:03 PM [employer]HEMAT[employer] FACULTY MEMBER [facility] LAB[facility] Bilirubin Total 0.6 <=1.2 mg/dL 03/06/2023 6:03 PM [employer]HEMAT[employer] FACULTY MEMBER [facility] Blood BLOOD SPECIMEN / Unknown Venipuncture / Unknown 03/06/2023 10:28 AM MATHEMATICS FACULTY MEMBER 03/06/2023 10:28 AM [employer]AC[employer] MEMBER Romi Fairbanks MD LAB - BLOOD ORDERABL ES [facility] LABORATORY [facility] Core Lab [address] [facility], [address] [phone] * ECHO MÓNICA (02/25/2023 3:12 PM MATHEMAT[employer] FACULTY MEMBER) LVEF 55-60% CARDIOLOGY RESULTS Anatomical Region Laterality Modality Echocardiography 02/25/2023 1:29 PM MATHEMAT[employer] FACULTY MEMBER Narrative 02/25/2023 4:09 PM MATHEMATICS FACULTY MEMBER [id number]^ALEKS^Tammy^P [facility] Echocardiography Laboratory [address] [place] [address] Name: BECKY GALLOWAY : 1960 Study Date: 02/25/2023 01:29 PM Age: 62 yrs Gender: Male Patient Location: [facility] Reason For Study: Mitral valve disorder Ordering Physician: Tammy FINK Referring Physician: Tammy FINK Performed By: David Julien MD BSA: 1.9 m2 Height: 71 in Weight: 166 lb HR: 97 BP: 124/72 mmHg Attestation I was present during MÓNICA probe placement by the fellow, David Julien. I personally viewed the imaging and agree with the interpretation and report as documented by the fellow. Interpretation Summary Global and regional left ventricular function is normal with an EF of 55-60%. Global right ventricular function is mildly reduced. Severe mitral insufficiency is present (ERO 0.53 cm2 and MR volume 75 ml). Cause of MR is severe mitral annular calcification. Mitral valve gradient is increased, 9mmHg at 94bpm, but is likely driven by increased volume from MR. The mitral valve area is 2.0 cm^2 by planimetry. Moderate aortic stenosis. The mean gradient across the aortic valve is 21 mmHg. The peak aortic velocity is 3.2 m/sec. AoV area by plannimetry 1.13 cm2 Moderate pulmonary hypertension. Right ventricular systolic pressure is 64mmHg above the right atrial pressure. No pericardial effusion. Procedure Transesophageal Echocardiogram with color and spectral Doppler performed. 3D image acquisition, reconstruction, and real-time interpretation was performed. I was present during MÓNICA probe placement by the Fellow. I personally viewed the imaging and agree with the interpretation and report as documented by the Fellow. Procedure location Operating Room. The procedure was performed in the Operating Room. Informed consent for Transesophegeal echo obtained. MÓNICA Probe #63 was used during the procedure. Sedation, endotracheal intubation, and mechanical ventilation were initiated prior to the MÓNICA and were monitored by anesthesia. I determined this patient to be an appropriate candidate for the planned sedation and procedure and have reassessed the patient immediately prior to sedation and procedure. Total sedation time: 35 minutes of continuous bedside 1:1 monitoring. The Transducer was inserted without difficulty . The patient tolerated the procedure well. Complications None. The patient's rhythm is normal sinus. Left Ventricle Global and regional left ventricular function is normal with an EF of 55-60%. Right Ventricle The right ventricle is normal size. Global right ventricular function is mildly reduced. Atria Visually enlarged left atrium. The left atrial appendage is normal. It is free of spontaneous echo contrast and thrombus. The left atrial appendage Doppler velocities are normal. The atrial septum is intact as assessed by color Doppler . Mitral Valve Severe mitral annular calcification is present. Severe mitral insufficiency is present. ERO 0.53 cm2 and MR volume 75 ml Cause of MR is severe mitral annular calcification. The mean mitral valve gradient is 9.1 mmHg. Mild mitral stenosis is present. The mitral valve area is 2.0 cm^2 planimetry. Aortic Valve Mild aortic insufficiency is present. Moderate aortic stenosis is present. AoV area by plannimetry 1.13 cm2. The mean gradient across the aortic valve is21 mmHg. The peak aortic velocity is 3.2 m/sec. Tricuspid Valve The tricuspid valve is normal. Moderate tricuspid insufficiency is present. Right ventricular systolic pressure is 64mmHg above the right atrial pressure. Moderate pulmonary hypertension is present. Pulmonic Valve The pulmonic valve is normal. Vessels The LLPV Doppler shows systolic blunting . The LUPV Doppler shows systolic blunting . The RLPV Doppler shows systolic blunting . The right upper pulmonary vein cannot be assessed. Pericardium No pericardial effusion is present. Compared to Previous Study This study was compared with the study from 02/09/2026 . There is severe MR and moderate . Doppler Measurements & Calculations MV max P.9 mmHg MV mean P.1 mmHg MV V2 VTI: 44.1 cm MR PISA: 6.6 cm2 MR ERO: 0.46 cm2 MR volume: 65.2 ml Report approved by: Clint Solorzano MDon 02/25/2023 04:09 PM Procedure Note Clint Simon MD - 02/25/2023 [id number] [facility] [id number]^ALEKS^Tammy^P [facility] Echocardiography Laboratory [address] [place] [address] Name: BECKY GALLOWAY : 1960 Study Date: 02/25/2023 01:29 PM Age: 62 yrs Gender: Male Patient Location: [facility] Reason For Study: Mitral valve disorder Ordering Physician: Tammy FINK Referring Physician: Tammy FINK Performed By: David Julien MD BSA: 1.9 m2 Height: 71 in Weight: 166 lb HR: 97 BP: 124/72 mmHg Attestation I was present during MÓNICA probe placement by the fellow, David Julien. I personally viewed the imaging and agree with the interpretationand report as documented by the fellow. Interpretation Summary Global and regional left ventricular function is normal with an EF of55-60%. Global right ventricular function is mildly reduced. Severe mitral insufficiency is present (ERO 0.53 cm2 and MR volume 75ml). Cause of MR is severe mitral annular calcification. Mitral valve gradient is increased, 9mmHg at 94bpm, but is likely drivenby increased volume from MR. The mitral valve area is 2.0 cm^2 byplanimetry. Moderate aortic stenosis. The mean gradient across the aortic valve is 21 mmHg. The peak aortic velocity is 3.2 m/sec. AoV area by plannimetry 1.13 cm2 Moderate pulmonary hypertension. Right ventricular systolic pressure [id number] above the right atrial pressure. No pericardial effusion. Procedure Transesophageal Echocardiogram with color and spectral Doppler performed.3D image acquisition, reconstruction, and real-time interpretation wasperformed. I was present during MÓNICA probe placement by the Fellow. I personallyviewed the imaging and agree with the interpretation and report as documented bythe Fellow. Procedure location Operating Room. The procedure was performed inthe Operating Room. Informed consent for Transesophegeal echo obtained. TEEProbe #63 was used during the procedure. Sedation, endotracheal intubation,and mechanical ventilation were initiated prior to the MÓNICA and were monitoredby anesthesia. I determined this patient to be an appropriate candidate forthe planned sedation and procedure and have reassessed the patientimmediately prior to sedation and procedure. Total sedation time: 35 minutes ofcontinuous bedside 1:1 monitoring. The Transducer was inserted without difficulty .The patient tolerated the procedure well. Complications None. The patient'srhythm is normal sinus. Left Ventricle Global and regional left ventricular function is normal with an EF of55-60%. Right Ventricle The right ventricle is normal size. Global right ventricular function is mildly reduced. Atria Visually enlarged left atrium. The left atrial appendage is normal. It isfree of spontaneous echo contrast and thrombus. The left atrial appendageDoppler velocities are normal. The atrial septum is intact as assessed by color Doppler . Mitral Valve Severe mitral annular calcification is present. Severe mitralinsufficiency is present. ERO 0.53 cm2 and MR volume 75 ml Cause of MR is severe mitral annular calcification. The mean mitralvalve gradient is 9.1 mmHg. Mild mitral stenosis is present. The mitral valvearea is 2.0 cm^2 planimetry. Aortic Valve Mild aortic insufficiency is present. Moderate aortic stenosis is present.AoV area by plannimetry 1.13 cm2. The mean gradient across the aortic [id number] mmHg. The peak aortic velocity is 3.2 m/sec. Tricuspid Valve The tricuspid valve is normal. Moderate tricuspid insufficiency ispresent. Right ventricular systolic pressure is 64mmHg above the right atrialpressure. Moderate pulmonary hypertension is present. Pulmonic Valve The pulmonic valve is normal. Vessels The LLPV Doppler shows systolic blunting . The LUPV Doppler showssystolic blunting . The RLPV Doppler shows systolic blunting . The right upper pulmonary vein cannot be assessed. Pericardium No pericardial effusion is present. Compared to Previous Study This study was compared with the study from 02/09/2026 . There is severeMR and moderate . Doppler Measurements & Calculations MV max P.9 mmHg MV mean P.1 mmHg MV V2 VTI: 44.1 cm MR PISA: 6.6 cm2 MR ERO: 0.46 cm2 MR volume: 65.2 ml Report approved by: Donovan Armstrong 02/25/2023 04:09 PM Tammy Fink MD CV ECHO ORDERABLES * ECHO MÓNICA (02/11/2023 12:29 PM [employer]HEMAT[employer] FACULTY MEMBER) Anatomical Region Laterality Modality Echocardiography 02/11/2023 10:3 0 AM MATHEMATICS FACULTY MEMBER Narrative 02/11/2023 12:17 PM [facility] [id number]^ALEKS^Tammy^[facility] Ech[facility] Laboratory [address] [place] [address] Name: BECKY GALLOWAY : 1960 Study Date: 02/11/2023 10:30 AM Age: 62 yrs Gender: Male Patient Location: [facility] Reason For Study: Mitral valve disorder, Aortic valve disorder, Tricuspid valve di Ordering Physician: Tammy FINK Referring Physician: Tammy FINK Performed By: MD Lorenzo Kat BSA: 2.0 m2 Height: 71 in Weight: 173 lb HR: 103 BP: 124/65 mmHg Interpretation Summary The MÓNICA was terminated due to inability to place probe despite receiving appropiate sedation. Recommend MÓNICA in the OR. Procedure Transesophageal Echocardiogram with color and spectral Doppler performed. Procedure location Echo Lab. The procedure was performed in the Echo Lab. Informed consent for Transesophegeal echo obtained. MÓNICA Probe #61 was used during the procedure. Patient was sedated using Fentanyl 75 mcg. Patient was sedated using Versed 5 mg. The heart rate, respiratory rate, oxygen saturations, blood pressure, and response to care were monitored throughout the procedure with the assistance of the nurse. The MÓNICA was terminated due to inability to place probe. Report approved by: MD Lorenzo Doan 02/11/2023 12:17 PM Procedure Note Lorenzo Hussein MD - 02/11/2023 [id number]^ALEKS^Tammy^[facility] E[facility] Laboratory [address] [place] [address] Name: BECKY GALLOWAY : 1960 Study Date: 02/11/2023 10:30 AM Age: 62 yrs Gender: Male Patient Location: [facility] Reason For Study: Mitral valve disorder, Aortic valve disorder,Tricuspid valve di Ordering Physician: Tammy FINK Referring Physician: Tammy FINK Performed By: MD Lorenzo Kat BSA: 2.0 m2 Height: 71 in Weight: 173 lb HR: 103 BP: 124/65 mmHg Interpretation Summary The MÓNICA was terminated due to inability to place probe despite receiving appropiate sedation. Recommend MÓNICA in the OR. Procedure Transesophageal Echocardiogram with color and spectral Dopplerperformed. Procedure location Echo Lab. The procedure was performed in the EchoLab. Informed consent for Transesophegeal echo obtained. MÓNICA Probe #61 wasused during the procedure. Patient was sedated using Fentanyl 75 mcg. Patientwas sedated using Versed 5 mg. The heart rate, respiratory rate, oxygen saturations, blood pressure, and response to care were monitoredthroughout the procedure with the assistance of the nurse. The MÓNICA was terminated dueto inability to place probe. Report approved by: MD Lorenzo Doan :17 PM Lorenzo Kat MD CV ECHO ORDERABLES * ECHO COMPLETE (02/09/2023 8:08 AM MATHEMATICS FACULTY MEMBER) [facility] LVEF 55-60% CARDIOLOGY RESULTS Anatomical Region Laterality Modality Echocardiography 02/09/2023 6:54 AM MATHEMATICS FACULTY MEMBER Narrative 02/09/2023 9:02 AM [facility] [id number]^ALEKS^Tammy^P [facility] E[facility] Laboratory [address] [place] [address] Name: BECKY GALLOWAY : 1960 Study Date: 02/09/2023 06:54 AM Age: 62 yrs Gender: Male Patient Location: [facility] Reason For Study: CAD (coronary artery disease) Ordering Physician: Tammy FINK Referring Physician: Tammy FINK Performed By: Siobhan Rosas BSA: 1.9 m2 Height: 71 in Weight: 162 lb BP: 144/72 mmHg Procedure Echocardiogram with two-dimensional, color and spectral Doppler performed. Interpretation Summary Global and regional left ventricular function is normal with an EF of 55-60%. Global right ventricular function is mildly reduced. Severe left atrial enlargement is present. Moderate to severe mitral insufficiency is present. Moderate mitral stenosis is present. The mean gradient across the mitral valve is 12 mmHg, HR 96 bpm. Moderate aortic stenosis is present. The peak aortic velocity is 3.3 m/sec. The right ventricular systolic pressure is 64mmHg above the right atrial pressure. Pulmonary hypertension is present. IVC diameter and respiratory changes fall into an intermediate range suggesting an RA pressure of 8 mmHg. Left Ventricle Global and regional left ventricular function is normal with an EF of 55-60%. Left ventricular diastolic function is not assessable. Right Ventricle Global right ventricular function is mildly reduced. Atria Severe left atrial enlargement is present. Mitral Valve Mitral valve sclerosis is present. Moderate to severe mitral annular calcification is present. Moderate to severe mitral insufficiency is present. The etiology of the mitral stenosis is mitral annular calcification . Moderate mitral stenosis is present. The mean gradient across the mitral valve is 12 mmHg. Aortic Valve Mild aortic insufficiency is present. Moderate aortic stenosis is present. The aortic valve area is 1.2 cm^2, by the continuity equation. The peak aortic velocity is 3.3 m/sec. Tricuspid Valve Moderate to severe tricuspid insufficiency is present. The right ventricular systolic pressure is 64mmHg above the right atrial pressure. Pulmonary hypertension is present. Pulmonic Valve Mild to moderate pulmonic insufficiency is present. Vessels The aorta root is normal. The thoracic aorta is normal. IVC diameter and respiratory changes fall into an intermediate range suggesting an RA pressure of 8 mmHg. Pericardium No pericardial effusion is present. MMode/2D Measurements & Calculations IVSd: 1.1 cm LVIDd: 5.7 cm LVIDs: 3.5 cm LVPWd: 1.1 cm FS: 37.7 % LV mass(C)d: 251.3 grams LV mass(C)dI: 130.3 grams/m2 Ao root diam: 3.1 cm asc Aorta Diam: 3.2 cm LVOT diam: 2.0 cm LVOT area: 3.2 cm2 Ao root diam index Ht(cm/m): 1.7 Ao root diam index BSA (cm/m2): 1.6 Asc Ao diam index BSA (cm/m2): 1.6 Asc Ao diam index Ht(cm/m): 1.8 LA Volume (BP): 102.0 ml LA Volume Index (BP): 52.8 ml/m2 RWT: 0.37 TAPSE: 1.5 cm Doppler Measurements & Calculations MV E max johnny: 247.0 cm/sec MV A max johnny: 174.0 cm/sec MV E/A: 1.4 MV max P.5 mmHg MV mean P.2 mmHg MV V2 VTI: 54.1 cm MVA(VTI): 1.1 cm2 MV dec time: 0.21 sec Ao V2 max: 345.8 cm/sec Ao max P.8 mmHg Ao V2 mean: 204.9 cm/sec Ao mean P.2 mmHg Ao V2 VTI: 51.9 cm RODRI(I,D): 1.2 cm2 RODRI(V,D): 1.2 cm2 LV V1 max P.8 mmHg LV V1 max: 130.0 cm/sec LV V1 VTI: 19.4 cm MR PISA: 7.9 cm2 MR ERO: 0.48 cm2 MR volume: 69.9 ml SV(LVOT): 61.4 ml SI(LVOT): 31.8 ml/m2 PA acc time: 0.05 sec TR max johnny: 403.0 cm/sec TR max P.0 mmHg AV Johnny Ratio (DI): 0.38 RODRI Index (cm2/m2): 0.61 E/E' av.2 Lateral E/e': 29.9 Medial E/e': 44.5 RV S Johnny: 9.7 cm/sec Report approved by: MD Lorenzo Doan 02/09/2023 09:02 AM Procedure Note Lorenzo Hussein MD - 02/09/2023 [id number]^ALEKS^Tammy^P [facility] [facility] Laboratory [address] [place] [id number] Name: BECKY GALLOWAY : 1960 Study Date: 02/09/2023 06:54 AM Age: 62 yrs Gender: Male Patient Location: [facility] Reason For Study: CAD (coronary artery disease) Ordering Physician: Tammy FINK Referring Physician: Tammy FINK Performed By: Siobhan Rosas BSA: 1.9 m2 Height: 71 in Weight: 162 lb BP: 144/72 mmHg Procedure Echocardiogram with two-dimensional, color and spectral Dopplerperformed. Interpretation Summary Global and regional left ventricular function is normal with an EF of55-60%. Global right ventricular function is mildly reduced. Severe left atrial enlargement is present. Moderate to severe mitral insufficiency is present. Moderate mitral stenosis is present. The mean gradient across the mitral valve is 12 mmHg, HR 96 bpm. Moderate aortic stenosis is present. The peak aortic velocity is 3.3 m/sec. The right ventricular systolic pressure is 64mmHg above the right atrial pressure. Pulmonary hypertension is present. IVC diameter and respiratory changes fall into an intermediate range suggesting an RA pressure of 8 mmHg. Left Ventricle Global and regional left ventricular function is normal with an EF of55-60%. Left ventricular diastolic function is not assessable. Right Ventricle Global right ventricular function is mildly reduced. Atria Severe left atrial enlargement is present. Mitral Valve Mitral valve sclerosis is present. Moderate to severe mitral annular calcification is present. Moderate to severe mitral insufficiency ispresent. The etiology of the mitral stenosis is mitral annular calcification .Moderate mitral stenosis is present. The mean gradient across the mitral valve is12 mmHg. Aortic Valve Mild aortic insufficiency is present. Moderate aortic stenosis is present.The aortic valve area is 1.2 cm^2, by the continuity equation. The peakaortic velocity is 3.3 m/sec. Tricuspid Valve Moderate to severe tricuspid insufficiency is present. The rightventricular systolic pressure is 64mmHg above the right atrial pressure. Pulmonary hypertension is present. Pulmonic Valve Mild to moderate pulmonic insufficiency is present. Vessels The aorta root is normal. The thoracic aorta is normal. IVC diameter and respiratory changes fall into an intermediate range suggesting an RApressure of 8 mmHg. Pericardium No pericardial effusion is present. MMode/2D Measurements & Calculations IVSd: 1.1 cm LVIDd: 5.7 cm LVIDs: 3.5 cm LVPWd: 1.1 cm FS: 37.7 % LV mass(C)d: 251.3 grams LV mass(C)dI: 130.3 grams/m2 Ao root diam: 3.1 cm asc Aorta Diam: 3.2 cm LVOT diam: 2.0 cm LVOT area: 3.2 cm2 Ao root diam index Ht(cm/m): 1.7 Ao root diam index BSA (cm/m2): 1.6 Asc Ao diam index BSA (cm/m2): 1.6 Asc Ao diam index Ht(cm/m): 1.8 LA Volume (BP): 102.0 ml LA Volume Index (BP): 52.8 ml/m2 RWT: 0.37 TAPSE: 1.5 cm Doppler Measurements & Calculations MV E max johnny: 247.0 cm/sec MV A max johnny: 174.0 cm/sec MV E/A: 1.4 MV max P.5 mmHg MV mean P.2 mmHg MV V2 VTI: 54.1 cm MVA(VTI): 1.1 cm2 MV dec time: 0.21 sec Ao V2 max: 345.8 cm/sec Ao max P.8 mmHg Ao V2 mean: 204.9 cm/sec Ao mean P.2 mmHg Ao V2 VTI: 51.9 cm RODRI(I,D): 1.2 cm2 RODRI(V,D): 1.2 cm2 LV V1 max P.8 mmHg LV V1 max: 130.0 cm/sec LV V1 VTI: 19.4 cm MR PISA: 7.9 cm2 MR ERO: 0.48 cm2 MR volume: 69.9 ml SV(LVOT): 61.4 ml SI(LVOT): 31.8 ml/m2 PA acc time: 0.05 sec TR max johnny: 403.0 cm/sec TR max P.0 mmHg AV Johnny Ratio (DI): 0.38 RODRI Index (cm2/m2): 0.61 E/E' av.2 Lateral E/e': 29.9 Medial E/e': 44.5 RV S Johnny: 9.7 cm/sec Report approved by: MD Lorenzo Doan 309:02 AM Tammy Fink MD CV ECHO ORDERABLES * HLA RESULT REPORT (12/17/2022 12:31 PM CDT) Only the most recent of2 resultswithin the time period is included. Provider Outside LAB - IMMUNOLOGY ORD ERABLES from Last 3 Months Advance Directives For more information, please contact: [phone] Latest Code Status on File Code Status Date Activated Date Inactivated Comments Full Code 03/31/2022 6:05 PM 04/01/2022 10:31 AM All basic and advanced life-sustaining interventions are performed as appropriate Question Answer Comments Code status determined by: Unable to discuss and no AD/POLST on file; continue PREVIOUSLY ORDERED code status Code Status History Code Status Date Activated Date Inactivated Comments Full Code 05/01/2021 4:45 PM 05/06/2021 1:36 PM All b asic and advanced life-sustaining interventions are performed as appropriate Question Answer Comments Code status determined by: Unable to discuss and no AD/POLST on file; continue PREVIOUSLY ORDERED code status Care Teams Structural Test Engineer Relationship Specialty Start Date End Date Maximino Arredondo MD [address] [place] [address] PCP - General Family Medicine 04/02/21 Chapin Khan MD [address] [place] [address] [phone] Urology 05/10/20 Danya Barraza [facility] [address] [place] [address] [phone] Pharmacist Pharmacist Aws Consultant 12/25/20 Jeanette French, FATOUMATA [address] [place] [address] Specialty Embedded Firmware Developer Gastroenterology 12/30/21 Tammy Fink MD [address] [place] [address] [address] [place], [place] 119025 Cardiovascular Disease 02/24/22 Genaro Palacios MD [address] [facility] [address] [place] [address] Assigned Heart and Vascular Provider 03/28/22 Claude Rucker MD [address] [place] [address] [phone] Assigned Surgical Provider 04/11/22 Delroy Gore APRN BONDING SUPERVISOR [address] [place] [phone] Assigned Nephrology Provider 04/25/22 Danya Barraza [facility] [address] [place] [phone] Assigned MTM Pharmacist 12/05/22 Chapin Ruvalcaba MD [address] [place] [address] [place] [address] Assigned Gastroenterology Provider 02/06/23
--- OUTSIDE RECORDS SUMMARY | 2023-03-14 02:34 | XMS_ITS | Encounter Summary ---
Author Name Unknown Organization [facility] Address [address] [place] [address]. [place] [address] Care Team Providers Care Agricultural Chemist Name Role Phone Chapin Khan MD Unavailable [phone] Danya Barraza [facility] Unavailable [phone] Maximino Arredondo MD Primary Care Provider [phone] Jeanette French RN Unavailable [phone] Tammy Greenberg MD Unavailable [phone] Genaro Palacios MD Unavailable [phone] Claude Rucker MD Unavailable [phone] Delroy Gore APRN INSTRUCTIONAL SYSTEMS SPECIALIST Unavailable [phone] Danya Barraza [facility] Unavailable [phone] Chapin Ruvalcaba MD Unavailable [phone] Encounter Details Date Type Department Care Team (Late st Contact Info) Description 03/06/2023 11:15 AM [facility] [address] [place] [address] Chronic kidney disease, stage V (H); Pre-transplant evaluation for kidney transplant; Cardiovascular disease; End stage renal disease (H); Essential hypertension; Crohn's disease of large intestine (H); IPMN (intraductal papillary mucinous neoplasm) Social History Tobacco Use Types Packs/Day Years [...] st Contact Info) Description 04/01/2023 1:15 PM MAINTENANCE CLERK Office Visit [address] [address] Yolanda Wilkerson PA-C [address] [place] [address] [phone] 07/13/2023 8:00 AM CDT Virtual Visit [facility] [address] [place] [phone] Deuce Majano PA-C [address] [place] [address] [phone] Pending Results Name Type Priority Associated Diagnoses Date /Time PRA Single Antigen IgG Antibody Lab Panel Routine Chronic kidney disease, stage V (H) Pre-transplant evaluation for kidney transplant Cardiovascular disease End stage renal disease (H) Essential hypertension 03/06/2023 10:28 AM MAINTENANCE CLERK PRA Single Antigen IgG Antibody Lab Routine Chronic kidney disease, stage V (H) Pre-transplant evaluation for kidney transplant Cardiovascular disease End stage renal disease (H) Essential hypertension 03/06/2023 10:28 AM MAINTENANCE CLERK documented as of this encounter Procedures Procedure Name Priority Date/Time Associated Diagnosis Comments ELASTASE FECAL Routine 03/10/2023 10:30 AM MAINTENANCE CLERK IPMN (intraductal papillary mucinous neoplasm) CBC WITH PLATELETS AND DIFFERENTIAL Routine 03/06/2023 10:28 AM MAINTENANCE CLERK Crohn's disease of large intestine (H) CBC WITH PLATELETS & DIFFERENTIAL Routine 03/06/2023 10:28 AM MAINTENANCE CLERK Crohn's disease of large intestine (H) ERYTHROCYTE SEDIMENTATION RATE AUTO Routine 03/06/2023 10:28 AM MAINTENANCE CLERK Crohn's disease of large intestine (H) DIFFERENTIAL Routine 03/06/2023 10:28 AM MAINTENANCE CLERK Crohn's disease of large intestine (H) CRP INFLAMMATION Routine 03/06/2023 10:2 8 AM MAINTENANCE CLERK Crohn's disease of large intestine (H) COMPREHENSIVE METABOLIC PANEL Routine 03/06/2023 10:28 AM MAINTENANCE CLERK Crohn's disease of large intestine (H) documented in this encounter Results * Elastase Fecal (03/10/2023 10:30 AM MAINTENANCE CLERK) Elastase Fecal 291.0 >199.9 ug/g 03/12/2023 9:36 AM MAINTENANCE CLERK [facility]/PROT/ENDO Stool RECTAL CONTENTS / Unknown Non-blood Collection / Unknown 03/10/2023 10:30 AM MAINTENANCE CLERK 03/10/2023 11:33 AM MAINTENANCE CLERK Chapin Ruvalcaba MD LAB - STOOLS HAIR [place]/PROT/ENDO [facility] Core/Prot/Endo [address] [facility], Room [address] [phone] * (ABNORMAL) Manual Differential (03/06/2023 10:28 AM MAINTENANCE CLERK) % Neutrophils 80 % 03/06/2023 2:49 PM MAINTENANCE CLERK [facility] % Lymphocytes 9 % 03/06/2023 2:49 PM MAINTENANCE CLERK [facility] % Monocytes 9 % 03/06/2023 2:49 PM MAINTENANCE CLERK [facility] % Eosinophils 1 % 03/06/2023 2:49 PM MAINTENANCE CLERK [facility] % Basophils 0 % 03/06/2023 2:49 PM MAINTENANCE CLERK [facility] % Metamyelocytes 1 % 03/06/19 2:49 PM MAINTENANCE CLERK [facility] Absolute Neutrophils 5.9 1.6 - 8.3 10e3/uL 03/06/2023 2:49 PM MAINTENANCE CLERK [facility] Absolute Lymphocytes 0.7(L) 0.8 - 5.3 10e3/uL 03/06/2023 2:49 PM MAINTENANCE CLERK [facility] Absolute Monocytes 0.7 0.0 - 1.3 10e3/uL 03/06/2023 2:49 PM MAINTENANCE CLERK [facility] Absolute Eosinophils 0.1 0.0 - 0.7 10e3/uL 03/06/2023 2:49 PM MAINTENANCE CLERK [facility] Absolute Basophils 0.0 0.0 - 0.2 10e3/uL 03/06/2023 2:49 PM MAINTENANCE CLERK [facility] Absolute Metamyelocytes 0.1(H) <=0.0 10e3/uL 03/06/2023 2:49 PM MAINTENANCE CLERK [facility] RBC Morphology Confirmed RBC Indices 03/06/2023 2:49 PM MAINTENANCE CLERK [facility] Platelet Assessment Automated Count Confirmed. Platelet morphology is normal. Automated Count Confirmed. Platelet morphology is normal. 03/06/2023 2:49 PM MAINTENANCE CLERK [facility] Elliptocytes Slight(A) None Seen 03/06/2023 2:49 PM MAINTENANCE CLERK [facility] RBC Fragments Slight(A) None Seen 03/06/2023 2:49 PM MAINTENANCE CLERK [facility] Blood BLOOD SPECIMEN / Unknown Venipuncture / Unknown 03/06/2023 10:28 AM MAINTENANCE CLERK 03/06/2023 10:28 AM MAINTENANCE CLERK Romi Fairbanks MD LAB - BLOOD ORDERABL ES [facility] Acute Care Lab [address] [facility] Lab (1st floor, no room number) [place] [address], [facility] [phone] * (ABNORMAL) CBC with platelets and differential (03/06/2023 10:28 AM MAINTENANCE CLERK) [facility] WBC Count 7.4 4.0 - 11.0 10e3/uL 03/06/2023 2:49 PM MAINTENANCE CLERK [facility] RBC Count 2.24(L) 4.40 - 5.90 10e6/uL 03/06/2023 2:49 PM MAINTENANCE CLERK [facility] Hemoglobin 8.3(L) 13.3 - 17.7 g/dL 03/06/2023 2:49 PM MAINTENANCE CLERK [facility] Hematocrit 27.0(L) 40.0 - 53.0 % 03/06/2023 2:49 PM MAINTENANCE CLERK [facility] MCV 121(H) 78 - 100 fL 03/06/2023 2:49 PM MAINTENANCE CLERK [facility] MCH 37.1(H) 26.5 - 33.0 pg 03/06/2023 2:49 PM MAINTENANCE CLERK [facility] MCHC 30.7(L) 31.5 - 36.5 g/dL 03/06/2023 2:49 PM MAINTENANCE CLERK [facility] RDW 21.1(H) 10.0 - 15.0 % 03/06/2023 2:49 PM MAINTENANCE CLERK [facility] Platelet Count 110(L) 150 - 450 10e3/uL 03/06/2023 2:49 PM MAINTENANCE CLERK [facility] % Neutrophils 03/06/2023 2:49 PM MAINTENANCE CLERK [facility] % Lymphocytes 03/06/2023 2:49 PM MAINTENANCE CLERK [facility] % Monocytes 03/06/2023 2:49 PM MAINTENANCE CLERK [facility] % Eosinophils 03/06/2023 2:49 PM MAINTENANCE CLERK [facility] % Basophils 03/06/2023 2:49 PM MAINTENANCE CLERK [facility] % Immature Granulocytes 03/06/2023 2:49 PM MAINTENANCE CLERK [facility] NRBCs per 100 WBC 0 <1 /100 024 2:49 PM MAINTENANCE CLERK [facility] Absolute Neutrophils 03/06/2023 2:49 PM MAINTENANCE CLERK [facility] Absolute Lymphocytes 03/06/2023 2:49 PM MAINTENANCE CLERK [facility] Absolute Monocytes 03/06/2023 2:49 PM MAINTENANCE CLERK [facility] Absolute Eosinophils 03/06/2023 2:49 PM MAINTENANCE CLERK [facility] Absolute Basophils 03/06/2023 2:49 PM MAINTENANCE CLERK [facility] Absolute Immature Granulocytes 03/06/2023 2:49 PM MAINTENANCE CLERK [facility] Absolute NRBCs 0.0 10e3/uL 03/06/2023 2:49 PM MAINTENANCE CLERK [facility] Blood BLOOD SPECIMEN / Unknown Venipuncture / Unknown 03/06/2023 10:28 AM MAINTENANCE CLERK 03/06/2023 10:28 AM MAINTENANCE CLERK Romi Fairbanks MD LAB - BLOOD ORDERABL ES [facility] Acute Care Lab [address] Lab (1st floor, no room number) [place] [address], [facility] [phone] * (ABNORMAL) Erythrocyte sedimentation rate auto (03/06/2023 10:28 AM MAINTENANCE CLERK) Erythrocyte Sedimentation Rate 64(H) 0 - 20 mm/hr 03/06/2023 10:46 AM MAINTENANCE CLERK [facility] Blood BLOOD SPECIMEN / Unknown Venipuncture / Unknown 03/06/2023 10:28 AM MAINTENANCE CLERK 03/06/2023 10:28 AM MAINTENANCE CLERK Romi Fairbanks MD LAB - BLOOD ORDERABL ES [facility] [address] [facility] Lab (no room number, 1st floor of clinic) [place] [address], [place] [phone] * (ABNORMAL) Comprehensive metabolic panel (03/06/2023 10:28 AM MAINTENANCE CLERK) Sodium 139 135 - 145 mmol/L 03/06/2023 6:03 PM MAINTENANCE CLERK [facility] Comment:Reference intervals for this test were updated on 11/10/2022 to more accurately reflect our healthy population. There may be differences in the flagging of prior results with similar values performed with this method. Interpretation of those prior results can be made in the context of the updated reference intervals. Potassium 3.8 3.4 - 5.3 mmol/L 03/06/2023 6:03 PM MAINTENANCE CLERK [facility] Carbon Dioxide (CO2) 26 22 - 29 mmol/L 03/06/2023 6:03 PM MAINTENANCE CLERK [facility] Anion Gap 12 7 - 15 mmol/L 03/06/2023 6:03 PM MAINTENANCE CLERK [facility] Urea Nitrogen 26.1(H) 8.0 - 23.0 mg/dL 03/06/2023 6:03 PM MAINTENANCE CLERK [facility] Creatinine 5.88(H) 0.67 - 1.17 mg/dL 03/06/2023 6:03 PM MAINTENANCE CLERK [facility] GFR Estimate 10(L) >60 mL/min/1. 73m2 03/06/2023 6:03 PM MAINTENANCE CLERK [facility] Calcium 8.9 8.8 - 10.2 mg/dL 03/06/2023 6:03 PM MAINTENANCE CLERK [facility] Chloride 101 98 - 107 mmol/L 03/06/2023 6:03 PM MAINTENANCE CLERK [facility] Glucose 129(H) 70 - 99 mg/dL 03/06/2023 6:03 PM MAINTENANCE CLERK [facility] Alkaline Phosphatase 119 40 - 150 U/L 03/06/2023 6:03 PM MAINTENANCE CLERK [facility] Comment:Reference intervals for this test were updated on 12/29/2022 to more accurately reflect our healthy population. There may be differences in the flagging of prior results with similar values performed with this method. Interpretation of those prior results can be made in the context of the updated reference intervals. AST 36 0 - 45 U/L 03/06/2023 6:03 PM MAINTENANCE CLERK [facility] Comment:Reference intervals for this test were updated on 07/27/2022 to more accurately reflect our healthy population. There may be differences in the flagging of prior results with similar values performed with this method. Interpretation of those prior results can be made in the context of the updated reference intervals. ALT 26 0 - 70 U/L 03/06/2023 6:03 PM MAINTENANCE CLERK [facility] Comment:Reference intervals for this test were updated on 07/27/2022 to more accurately reflect our healthy population. There may be differences in the flagging of prior results with similar values performed with this method. Interpretation of those prior results can be made in the context of the updated reference intervals. Protein Total 6.1(L) 6.4 - 8.3 g/dL 03/06/2023 6:03 PM MAINTENANCE CLERK [facility] Albumin 3.2(L) 3.5 - 5.2 g/dL 03/06/2023 6:03 PM MAINTENANCE CLERK [facility] Bilirubin Total 0.6 <=1.2 mg/dL 03/06/2023 6:03 PM MAINTENANCE CLERK [facility] Blood BLOOD SPECIMEN / Unknown Venipuncture / Unknown 03/06/2023 10:28 AM MAINTENANCE CLERK 03/06/2023 10:28 AM MAINTENANCE CLERK Romi Fairbanks MD LAB - BLOOD ORDERABL ES [facility] [place] [facility] [address] [facility], [address] [address], [facility] [phone] * (ABNORMAL) CRP inflammation (03/06/2023 10:28 AM MAINTENANCE CLERK) CRP Inflammation 68.80(H) <5.00 mg/L 03/06/2023 6:03 PM MAINTENANCE CLERK [facility] Blood BLOOD SPECIMEN / Unknown Venipuncture / Unknown 03/06/2023 10:28 AM MAINTENANCE CLERK 03/06/2023 10:28 AM MAINTENANCE CLERK Romi Fairbanks MD LAB - BLOOD ORDERABL ES [facility] Core Lab [address] [facility], [address] [address], [facility] [phone] documented in this encounter Visit Diagnoses Diagnosis Chronic kidney disease, stage V (H) Chronic kidney disease, Stage V Pre-transplant evaluation for kidney transplant Cardiovascular disease Unspecified cardiovascular disease End stage renal disease (H) End stage renal disease Essential hypertension Unspecified essential hypertension Crohn's disease of large intestine (H) Regional enteritis of large intestine IPMN (intraductal papillary mucinous neoplasm) Neoplasm of unspecified nature of digestive system documented in this encounter Care Teams Agricultural Chemist Relationship Specialty Start Date End Date [place] [address] PCP - General Family Medicine 04/02/21 Chapin Khan MD [address] [place] [address] [phone] Urology 05/10/20 Danya Barraza, [facility] [address] [place] [address] [phone] Pharmacist Pharmacist Airport Operations Manager 12/25/20 Jeanette French, FATOUMATA [address] [place] [address] [phone] Specialty Senior Network Administrator Gastroenterology 12/30/21 Tammy Greenberg MD [address] [place] [address] [address] [place], [place] [phone] Cardiovascular Disease 02/24/22 [place] [address] [place] [phone] Assigned Heart and Vascular Provider 03/28/22 Claude Rucker MD [address] [place] [address] [phone] Assigned Surgical Provider 04/11/22 Delroy Gore APRN [facility] [address] [place] [address] [phone] Assigned Nephrology Provider 04/25/22 [facility] [address] [place] [address] [phone] Assigned MTM Pharmacist 12/05/22 Chapin Ruvalcaba MD [address] [place] [address] [place] [phone] Assigned Gastroenterology Provider 02/06/23 documented as of this encounter
--- OUTSIDE RECORDS SUMMARY | 2023-03-14 02:34 | XMS_ITS | Encounter Summary ---
Author Name Unknown Organization [place] Address [address] [place] [address]. [place] [address] Care Team Providers Care Chainstitch Sewing Machine Operator Name Role Phone Chapin Khan MD Unavailable [phone] Danya Barraza [facility] Unavailable [phone] Maximino Arredondo MD Primary Care Provider [phone] Jeanette French RN Unavailable [phone] Tammy Greenberg MD Unavailable [phone] Genaro Palacios MD Unavailable [phone] Claude Rucker MD Unavailable [phone] Delroy Gore APRN CONTROL PANEL OPERATOR Unavailable [phone] Danya Barraza [facility] Unavailable [phone] Chapin Ruvalcaba MD Unavailable [phone] Encounter Details Date Type Department Care Team (Late st Contact Info) Description 03/10/2023 11:30 AM [facility] [address] [place] [address] Crohn's disease of both small and large intestine with other complication (H) Social History Tobacco Use Types Packs/Day Years [...] st Contact Info) Description 04/01/2023 1:15 PM SECTION MAINTAINER Office Visit [address] [phone] Yolanda Wilkerson PA-C [address] [place] [address] [phone] 07/13/2023 8:00 AM CDT Virtual Visit [facility] Gastroenterology Clinic [address] [place] [phone] Deuce Majano PA-C [address] [place] [address] [phone] documented as of this encounter Procedures Procedure Name Priority Date/Time Associated Diagnosis Comments ENTERIC BACTERIA AND VIRUS PANEL BY PCR Routine 03/10/2023 11:45 AM SECTION MAINTAINER Crohn's disease of both small and large intestine with other complication (H) C. DIFFICILE TOXIN B PCR WITH REFLEX TO C. DIFFICILE ANTIGEN AND TOXINS A/B EIA Routine 03/10/2023 11:45 AM SECTION MAINTAINER Crohn's disease of both small and large intestine with other complication (H) CALPROTECTIN FECES Routine 03/10/2023 11 :45 AM SECTION MAINTAINER Crohn's disease of both small and large intestine with other complication (H) documented in this encounter Results * Enteric Bacteria and Virus Panel PCR (03/10/2023 11:45 AM SECTION MAINTAINER) Campylobacter species Negative Negative 03/10/2023 7:04 PM SECTION MAINTAINER [facility] Salmonella species Negative Negative 2023 7:04 PM SECTION MAINTAINER [facility] Vibrio species Negative Negative 03/10/2023 7:04 PM SECTION MAINTAINER [facility] Vibrio cholerae Negative Negative 7:04 PM SECTION MAINTAINER [facility] Yersinia enterocolitica Negative Negative 03/10/2023 7:04 PM SECTION MAINTAINER [facility] Enteropathogenic E. coli (EPEC) Negative Negative, NA 03/10/2023 7:04 PM SECTION MAINTAINER [facility] Shiga-like toxin-producing E. coli (STEC) Negative Negative 03/10/2023 7:04 PM SECTION MAINTAINER [facility] Shigella/Enteroinvas vadim E. coli (EIEC) Negative Negative 03/10/2023 7:04 PM SECTION MAINTAINER [facility] Cryptosporidium species Negative Negative 03/10/2023 7:04 PM SECTION MAINTAINER [facility] Giardia lamblia Negative Negative 7:04 PM SECTION MAINTAINER [facility] Norovirus Gl/Gll Negative Negative 03/10/19 7:04 PM SECTION MAINTAINER [facility] Rotavirus A Negative Negative 03/10/2023 7:04 PM SECTION MAINTAINER [facility] Plesiomonas shigelloides Negative Negative 03/10/2023 7:04 PM SECTION MAINTAINER [facility] Enteroaggregative E. coli (EAEC) Negative Negative 03/10/2023 7:04 PM SECTION MAINTAINER [facility] Enterotoxigenic E. coli (ETEC) Negative Negative 03/10/2023 7:04 PM SECTION MAINTAINER [facility] E. coli O157 NA Negative, NA 03/10/2023 7:04 PM SECTION MAINTAINER [facility] Cyclospora cayetanensis Negative Negative 03/10/2023 7:04 PM SECTION MAINTAINER [facility] Entamoeba histolytica Negative Negative 03/10/2023 7:04 PM SECTION MAINTAINER [facility] Adenovirus F40/41 Negative Negative 024 7:04 PM SECTION MAINTAINER [facility] Astrovirus Negative Negative 03/10/2023 7:04 PM SECTION MAINTAINER [facility] Sapovirus Negative Negative 03/10/2023 7:04 PM SECTION MAINTAINER [facility] Stool RECTAL CONTENTS / Unknown Non-blood Collection / Unknown 03/10/2023 11:45 AM SECTION MAINTAINER 03/10/2023 11:45 AM SECTION MAINTAINER Narrative [facility] - 03/10/2023 7:04 PM SECTION MAINTAINER Assay performed using the FDA-cleared VeeipArray GI Panel from [employer] ??A negative result should not rule [...] by the Infectious Diseases Diagnostic Laboratory at [facility]. This laboratory is certified under the Clinical Laboratory Improvement Amendments of 1988 (CLIA-88) as qualified to perform high complexity clinical laboratory testing. Deuce Majano PA-C LAB - MICRO GENERAL ORDERABLES [facility] Inf. Diseases Diag. Lab [address] [facility], [address] [place] [address], [facility] [phone] * (ABNORMAL) Calprotectin Feces (03/10/2023 11:45 AM SECTION MAINTAINER) Calprotectin Feces 75.5(H) 0.0 - 49.9 mg/kg 03/12/2023 9:35 AM SECTION MAINTAINER SPECIALTY CORE/PROT/END O Comment:Borderline result, p lease re-evaluate and recollect a new sample in 4-6 weeks. Stool RECTAL CONTENTS / Unknown Non-blood Collection / Unknown 03/10/2023 11:45 AM SECTION MAINTAINER 03/10/2023 11:45 AM SECTION MAINTAINER Deuce Majano PA-C LAB - STOOLS ORDERA BLES SPECIALTY CORE/PROT/ENDO Specialty Core/Prot/Endo [address] [facility], [address] [phone] * C. difficile Toxin B PCR with reflex to C. difficile Antigen and Toxins A/B EIA (03/10/2023 11:45 AM SECTION MAINTAINER) C Difficile Toxin B by PCR Negative Negative 03/10/2023 5:57 PM SECTION MAINTAINER [facility] Comment:A negative result do es not exclude actual disease due to C. difficile and may be due to improper collection, handling and storage of the specimen or the number of organisms in the specimen is below the detection limit of the assay. Stool RECTAL CONTENTS / Unknown Non-blood Collection / Unknown 03/10/2023 11:45 AM SECTION MAINTAINER 03/10/2023 11:45 AM SECTION MAINTAINER Narrative [facility] - 03/10/2023 5:57 PM SECTION MAINTAINER The Cepheid Xpert C. difficile Assay, performed on the [employer] GeneXpert?? Instrument Systems, is a qualitative in [...] Majano PA-C LAB - MICRO GENERAL ORDERABLES [facility] Inf. Diseases Diag. Lab [address] [facility], [address] [place] [address], [facility] [phone] documented in this encounter Visit Diagnoses Diagnosis Crohn's disease of both small and large intestine with other complication (H) documented in this encounter Additional Health Concerns Infection Onset Date Last Indicated Resolved Time Rule Out C-difficile 03/10/2023 03/10/2023 024 5:57 PM SECTION MAINTAINER documented as of this encounter Care Teams Chainstitch Sewing Machine Operator Relationship Specialty Start Date End Date Maximino Arredondo MD [address] [place] [address] [place] [address] PCP - General Family Medicine 04/02/21 Chapin Khan MD [address] [place] [address] [phone] Urology 05/10/20 Danya Barraza, [facility] [address] [place] [address] [phone] Pharmacist Pharmacist Paster Supervisor 12/25/20 Jeanette French, RN [address] [place] [address] 344355 Specialty Cafe Worker Gastroenterology 12/30/21 Tammy Greenberg MD [address] [place] [address] [address] [place], [place] 640385 Cardiovascular Disease 02/24/22 Genaro Palacios MD [address] [facility] [address] [place] [address] Assigned Heart and Vascular Provider 03/28/22 Claude Rucker MD [address] [place] [address] Assigned Surgical Provider 04/11/22 Delroy Gore APRN CONTROL PANEL OPERATOR [address] [place] [address] Assigned Nephrology Provider 04/25/22 Danya Barraza RP [address] [place], [place] 7[address] Assigned MTM Pharmacist 12/05/22 Chapin Ruvalcaba MD [address] [facility] [address] [place] [address] Assigned Gastroenterology Provider 02/06/23 documented as of this encounter
--- OUTSIDE RECORDS SUMMARY | 2023-03-14 02:34 | XMS_ITS | Encounter Summary ---
Author Name Unknown Organization [facility] Address [address] [place] [address]. [place] [address] Care Team Providers Care Surgical Services Tech Name Role Phone Chapin Khan MD Unavailable [phone] Danya Barraza [facility] Unavailable [phone] Maximino Arredondo MD Primary Care Provider [phone] Jeanette French RN Unavailable [phone] Tammy Greenberg MD Unavailable [phone] Genaro Palacios MD Unavailable [phone] Claude Rucker MD Unavailable [phone] Delroy Gore APRN CHANNELER OUTSOLE Unavailable [phone] Danya Barraza [facility] Unavailable [phone] Chapin Ruvalcaba MD Unavailable [phone] Reason for Visit * Reason Onset Date Comments Active GI symptoms 2023 Encounter Details Date Type Department Care Team (Latest Contact Info) Description 2023 MyC Medical Advice [facility] Gastroenterology Clinic [address] [place] [address] Romi Fairbanks MD [address] [address] Active GI symptoms Social History Tobacco Use Types Packs/Day Years [...] AM CDT documented as of this encounter Miscellaneous Notes * Telephone Encounter - Jeanette French RN - 03/12/2023 1:50 PM STUDENT COUNSELOR Per Dr. Fairbanks, plan for PO Entocort. If no symptom improvement, okay to try Rifaximin for possibleSIBO. Order placed for Entocort appropriately. Plan to reassess symptoms on 03/19/23. ENT COUNSELOR documented in this encounter Plan of Treatment Upcoming Encounters Date Type Department Care Team (Late st Contact Info) Description 04/01/2023 1:15 PM STUDENT COUNSELOR Office Visit [address] [address] Yolanda Wilkerson, PAAnhC [address] [place] [address] [phone] 07/13/2023 8:00 AM CDT Virtual Visit [facility] Gastroenterology Clinic [address] [phone] Deuce Majano PA-C [address] [place] [address] documented as of this encounter Results * Enteric Bacteria and Virus Panel PCR (03/10/2023 11:45 AM STUDENT COUNSELOR) Campylobacter species Negative Negative 03/10/2023 7:04 PM STUDENT COUNSELOR [facility] Salmonella species Negative Negative 2023 7:04 PM STUDENT COUNSELOR [facility] Vibrio species Negative Negative 03/10/2023 7:04 PM STUDENT COUNSELOR [facility] Vibrio cholerae Negative Negative 7:04 PM STUDENT COUNSELOR [facility] Yersinia enterocolitica Negative Negative 03/10/2023 7:04 PM STUDENT COUNSELOR [facility] Enteropathogenic E. coli (EPEC) Negative Negative, NA 03/10/2023 7:04 PM STUDENT COUNSELOR [facility] Shiga-like toxin-producing E. coli (STEC) Negative Negative 03/10/2023 7:04 PM STUDENT COUNSELOR [facility] Shigella/Enteroinvas vadim E. coli (EIEC) Negative Negative 03/10/2023 7:04 PM STUDENT COUNSELOR [facility] Cryptosporidium species Negative Negative 03/10/2023 7:04 PM STUDENT COUNSELOR [facility] Giardia lamblia Negative Negative 7:04 PM STUDENT COUNSELOR [facility] Norovirus Gl/Gll Negative Negative 03/10/19 7:04 PM STUDENT COUNSELOR [facility] Rotavirus A Negative Negative 03/10/2023 7:04 PM STUDENT COUNSELOR [facility] Plesiomonas shigelloides Negative Negative 03/10/2023 7:04 PM STUDENT COUNSELOR [facility] Enteroaggregative E. coli (EAEC) Negative Negative 03/10/2023 7:04 PM STUDENT COUNSELOR [facility] Enterotoxigenic E. coli (ETEC) Negative Negative 03/10/2023 7:04 PM STUDENT COUNSELOR [facility] E. coli O157 NA Negative, NA 03/10/2023 7:04 PM STUDENT COUNSELOR [facility] Cyclospora cayetanensis Negative Negative 03/10/2023 7:04 PM STUDENT COUNSELOR [facility] Entamoeba histolytica Negative Negative 03/10/2023 7:04 PM STUDENT COUNSELOR [facility] Adenovirus F40/41 Negative Negative 024 7:04 PM STUDENT COUNSELOR [facility] Astrovirus Negative Negative 03/10/2023 7:04 PM STUDENT COUNSELOR [facility] Sapovirus Negative Negative 03/10/2023 7:04 PM STUDENT COUNSELOR [facility] Stool RECTAL CONTENTS / Unknown Non-blood Collection / Unknown 03/10/2023 11:45 AM STUDENT COUNSELOR 03/10/2023 11:45 AM STUDENT COUNSELOR Narrative [facility] - 03/10/2023 7:04 PM STUDENT COUNSELOR Assay performed using the FDA-cleared CasinityArray GI Panel from [employer] ??A negative result should not rule [...] by the Infectious Diseases Diagnostic Laboratory at [facility]. This laboratory is certified under the Clinical Laboratory Improvement Amendments of 1988 (CLIA-88) as qualified to perform high complexity clinical laboratory testing. Deuce Majano PA-C LAB - MICRO GENERAL ORDERABLES [facility] Inf. Diseases Diag. Lab [address] [facility], [address] [place] [address], [facility] [phone] * (ABNORMAL) Calprotectin Feces (03/10/2023 11:45 AM STUDENT COUNSELOR) Calprotectin Feces 75.5(H) 0.0 - 49.9 mg/kg 03/12/2023 9:35 AM STUDENT COUNSELOR SPECIALTY CORE/PROT/END O Comment:Borderline result, p lease re-evaluate and recollect a new sample in 4-6 weeks. Stool RECTAL CONTENTS / Unknown Non-blood Collection / Unknown 03/10/2023 11:45 AM STUDENT COUNSELOR 03/10/2023 11:45 AM STUDENT COUNSELOR Deuce Majano PA-C LAB - STOOLS ORDERA BLES SPECIALTY CORE/PROT/ENDO Specialty Core/Prot/Endo [address] [facility], [address] [place], [place] [phone] [place] [address] * C. difficile Toxin B PCR with reflex to C. difficile Antigen and Toxins A/B EIA (03/10/2023 11:45 AM STUDENT COUNSELOR) C Difficile Toxin B by PCR Negative Negative 03/10/2023 5:57 PM STUDENT COUNSELOR [facility] Comment:A negative result do es not exclude actual disease due to C. difficile and may be due to improper collection, handling and storage of the specimen or the number of organisms in the specimen is below the detection limit of the assay. Stool RECTAL CONTENTS / Unknown Non-blood Collection / Unknown 03/10/2023 11:45 AM STUDENT COUNSELOR 03/10/2023 11:45 AM STUDENT COUNSELOR Narrative [facility] - 03/10/2023 5:57 PM STUDENT COUNSELOR The Cepheid Xpert C. difficile Assay, performed on the [employer] GeneXpert?? Instrument Systems, is a qualitative in [...] - MICRO GENERAL ORDERABLES [facility] Inf. Diseases Diag. Lab [address] [facility], [address] [place] [address], [facility] [phone] documented in this encounter Visit Diagnoses Diagnosis Crohn's disease of both small and large intestine with other complication (H)- Primary documented in this encounter Additional Health Concerns Infection Onset Date Last Indicated Resolved Time Rule Out C-difficile 03/10/2023 03/10/2023 024 5:57 PM STUDENT COUNSELOR documented as of this encounter Care Teams Surgical Services Tech Relationship Specialty Start Date End Date Maximino Arredondo MD [address] [place] [phone] PCP - General Family Medicine 04/02/21 Chapin Khan MD [address] [place] [address] Urology 05/10/20 Danya Barraza, [facility] [address] [place] [address] [phone] Pharmacist Pharmacist Unit Director 12/25/20 Jeanette French, RN [address] [place] [address] [phone] Specialty Critical Care Specialist Gastroenterology 12/30/21 Tammy Greenberg MD [address] [place] [address] 508 [place], [place] [phone] Cardiovascular Disease 02/24/22 Genaro Palacios MD [address] [facility] [address] [place], [place] 974425 Assigned Heart and Vascular Provider 03/28/22 Claude Rucker MD [address] [place] [address] Assigned Surgical Provider 04/11/22 Delroy Gore APRN CHANNELER OUTSOLE [address] [place] [address] Assigned Nephrology Provider 04/25/22 Danya Barraza [facility] [address] [place], [place] [phone] Assigned MTM Pharmacist 12/05/22 Chapin Ruvalcaba MD [address] [facility] [address] [place], [place] 09[address] Assigned Gastroenterology Provider 02/06/23 documented as of this encounter
--- OUTSIDE RECORDS SUMMARY | 2023-03-14 02:35 | XMS_ITS | Encounter Summary ---
Author Name Unknown Organization [place] Address [address] [place] [address]. [place] [address] Care Team Providers Care Zigzag Machine Operator Name Role Phone Chapin Khan MD Unavailable [phone] Danya Barraza [facility] Unavailable [phone] Maximino Arredondo MD Primary Care Provider [phone] Jeanette French RN Unavailable [phone] Tammy Greenberg MD Unavailable [phone] Genaro Palacios MD Unavailable [phone] Claude Rucker MD Unavailable [phone] Delroy Gore APRN SAFETY REPRESENTATIVE Unavailable [phone] Danya Barraza [facility] Unavailable [phone] Chapin Ruvalcaba MD Unavailable [phone] Encounter Details Date Type Department Care Team (Latest Contact Info) Description 02/09/2023 Travel Social History Tobacco Use Types Packs/Day [...] st Contact Info) Description 04/01/2023 1:15 PM ERGONOMICS TECHNICIAN Office Visit [address] [address] Yolanda Wilkerson, PA-C [address] [place] [address] [phone] 07/13/2023 8:00 AM CDT Virtual Visit [facility] Gastroenterology Clinic [address] [place] [phone] Deuce Majano PA-C [address] [place] [address] [phone] documented as of this encounter Visit Diagnoses Not on filedocumented in this encounter Care Teams Zigzag Machine Operator Relationship Specialty Start Date End Date Maximino Arredondo MD [address] [place] [address] PCP - General Family Medicine 04/02/21 Chapin Khan MD [address] [place] [address] Urology 05/10/20 Danya Barraza, [facility] [address] [place] [address] Pharmacist Pharmacist Polysomnography Technician 12/25/20 Jeanette French, RN [address] [place] [address] [phone] Specialty Dialysis Technician Gastroenterology 12/30/21 Tammy Greenberg MD [address] [place] [address] 508 [place], [place] 050[address] Cardiovascular Disease 02/24/22 Genaro Palacios MD [address] 039065 Assigned Heart and Vascular Provider 03/28/22 Claude Rucker MD [address] [place] [address] 985505 Assigned Surgical Provider 04/11/22 Delroy Gore, DYE OPERATOR SAFETY REPRESENTATIVE [address] [place] [address] 240735 Assigned Nephrology Provider 04/25/22 Danya Barraza, [facility] [address] [place] [address] Assigned MTM Pharmacist 12/05/22 Chapin Ruvalcaba MD [address] [place] [address] [address] [place] [address] Assigned Gastroenterology Provider 02/06/23 documented as of this encounter
--- OUTSIDE RECORDS SUMMARY | 2023-03-14 02:35 | XMS_ITS | Encounter Summary ---
Author Name Unknown Organization [place] Address [address] [place] [address]. [place] [address] Care Team Providers Care It Assistant Name Role Phone Chapin Khan MD Unavailable [phone] Danya Barraza [facility] Unavailable [phone] Maximino Arredondo MD Primary Care Provider [phone] Jeanette French RN Unavailable [phone] Tammy Fink MD Unavailable [phone] Genaro Palacios MD Unavailable [phone] Claude Rucker MD Unavailable [phone] Delroy Gore APRN DIRECTOR CORPORATE SALES Unavailable [phone] Danya Barraza [facility] Unavailable [phone] Chapin Ruvalcaba MD Unavailable [phone] Reason for Referral * CV Testing (Routine) - Closed Specialty Diagnoses / Procedures Referred By Contac t Referred To Contact Cardiology Diagnoses Mitral valve disorder Procedures Transesophageal Echocardiogram ZZC ECHO HEART,TRANSESOPHAGEAL,COMPLETE ZZHC ECHO MÓNICA, COMPLETE W CONTRAST ZZHC ECHO MÓNICA, COMPLETE W/O CONTRAST ZZC ECHO TRANSESOPH,JAIDEN ANOM,COMPLETE ZZHC DOPPLER ECHO PULSED, COMPLETE ZZHC DOPPLER ECHO PULSED, F/U OR LIMITED ZZHC DOPPLER ECHO COLOR FLOW VELOCITY MAP ZZH ECHO TRANSESOPHAGEAL (MÓNICA) ZZHC STATISTIC IV PUSH SINGLE INITIAL SUBSTANCE UT ECHO HEART,TRANSESOPHAGEAL,COMPLETE UT DOPPLER ECHO PULSED, COMPLETE UT DOPPLER ECHO PULSED, F/U OR LIMITED UT DOPPLER ECHO COLOR FLOW VELOCITY MAP UT ECHO TRANSESOPH,JAIDEN ANOM,COMPLETE UT ECHO TRANSESOPHAGEAL (MÓNICA) HC DOPPLER ECHO PULSED, COMPLETE HC DOPPLER ECHO PULSED, F/U OR LIMITED HC DOPPLER ECHO COLOR FLOW VELOCITY MAP HC STATISTIC IV PUSH SINGLE INITIAL SUBSTANCE HC ECHO TRANSESOPHAGEAL (MÓNICA) HC ECHO MÓNICA, COMPLETE W CONTRAST HC ECHO MÓNICA, COMPLETE W/O CONTRAST Tammy Fink MD [address] [place] [address] Cardiac Services [address] [place] [phone] Referral ID Status Reason Start Date Expiration Date Visits Re quested Visits Authorized [id number] Closed 02/11/2023 02/11/2024 1 1 ANT DIRECTOR Encounter Details Date Type Department Care Team (Late st Contact Info) Description 02/11/[address] [facility] [address] [address] Tammy Fink MD [address] [place] [address] Mitral valve disorder (Primary Dx) Social History Tobacco Use Types Packs/Day Years [...] st Contact Info) Description 04/01/2023 1:15 PM PAGEANT DIRECTOR Office Visit [address] [phone] Yolanda Wilkerson PA-C [address] [place] [address] 949415 07/13/2023 8:00 AM CDT Virtual Visit [facility]ology [facility] [address] [place] [phone] eDuce Majano PA-C [address] [place] [address] 165075 documented as of this encounter Results * ECHO MÓNICA (02/25/2023 3:12 PM PAGEANT DIRECTOR) LVEF 55-60% CARDIOLOGY RESULTS Anatomical Region Laterality Modality Echocardiography 02/25/2023 1:29 PM PAGEANT DIRECTOR Narrative 02/25/2023 4:09 PM PAGEANT DIRECTOR [id number] [facility] [id number]^ALEKS^K^P [facility] Echocardiography Laboratory [address] [place] [address] Name: BECKY GALLOWAY : 1960 Study Date: 02/25/2023 01:29 PM Age: 62 yrs Gender: Male Patient Location: [facility] Reason For Study: Mitral valve disorder Ordering [...] approved by: Donovan Armstrong 02/25/2023 04:09 PM Procedure Note Clint Simon MD - 02/25/2023 [id number]^ALEKS^Tammy^[facility] Ech[facility] [address] [place] [address] Name: BECKY GALLOWAY : 1960 Study Date: 02/25/2023 01:29 PM Age: 62 yrs Gender: Male Patient Location: [facility] Reason For Study: Mitral valve disorder Ordering [...] Moderate pulmonary hypertension. Right ventricular systolic pressure [id number] above the right atrial pressure. No pericardial [...] cm2. The mean gradient across the aortic mmHg. The peak aortic velocity is 3.2 [...] approved by: Donovan Armstrong 02/25/2023 04:09 PM K P Aleks JUAREZ CV ECHO ORDERABLES documented in this encounter Visit Diagnoses Diagnosis Mitral valve disorder- Primary Mitral valve disorder documented in this encounter Care Teams It Assistant Relationship Specialty Start Date End Date Maximino Arredondo [place] [address] PCP - General Family Medicine 04/02/21 Chapin Khan MD [address] [place] [address] [phone] Urology 05/10/20 Danya Barraza, [facility] [address] [place] [address] [phone] Pharmacist Pharmacist Manager Sustainability 12/25/20 Jeanette French, FATOUMATA [address] [place] [address] [phone] Specialty Local Intermodal Truck Driver Gastroenterology 12/30/21 Tammy Fink MD [address] [place] [address] [address] [place], [place] 022775 Cardiovascular Disease 02/24/22 [place] [address] [place] [address] 966855 Assigned Heart and Vascular Provider 03/28/22 Claude Rucker MD [address] [place] [address] 973135 Assigned Surgical Provider 04/11/22 Delroy Gore, CREDIT PROFESSIONAL [facility] [address] [place] [address] [phone] Assigned Nephrology Provider 04/25/22 [facility] [address] [place] [address] [phone] Assigned MTM Pharmacist 12/05/22 Chapin Ruvalcaba MD [address] [place] [address] [place] [address] Assigned Gastroenterology Provider 02/06/23 documented as of this encounter
--- OUTSIDE RECORDS SUMMARY | 2023-03-14 02:35 | XMS_ITS | Encounter Summary ---
Author Name Unknown Organization [facility] Address [address] [place] [address]. [place] [address] Care Team Providers Care Otolaryngology Teacher Name Role Phone Chapin Khan MD Unavailable [phone] Danya Barraza [facility] Unavailable [phone] Maximino Arredondo MD Primary Care Provider [phone] Jeanette French RN Unavailable [phone] Tammy Fink MD Unavailable [phone] Genaro Palacios MD Unavailable [phone] Claude Rucker MD Unavailable [phone] Delroy Gore APRN FEED MILL SUPERVISOR Unavailable [phone] Danya Barraza [facility] Unavailable [phone] Chapin Ruvalcaba MD Unavailable [phone] Reason for Referral * CV Testing (Routine) - Closed Specialty Diagnoses / Procedures Referred By Contac t Referred To Contact Cardiology Diagnoses CAD (coronary artery disease) Procedures Echocardiogram Complete ZZHC TTE W/DOPPLER, COMPLETE ZZHC ECHO COMPLETE W DOPPLER W CONTRAST ZZHC ECHO COMPLETE W DOPPLER W/O CONTRAST ZZHC IV PUSH SINGLE, INITIAL SUBSTANCE ZZHC US GUIDE FOR PERICARDIOCENTESIS ZZHC ECHO MYOCARD BX ZZC INJECTION, PERFLUTREN LIPID MICROSPHERES, PER ML ZZHC STATISTIC IV PUSH SINGLE INITIAL SUBSTANCE KY ECHO MYOCARD BX [place] INJECTION, PERFLUTREN LIPID MICROSPHERES, PER ML [place] TTE W/DOPPLER, COMPLETE [place] IV PUSH SINGLE, INITIAL SUBSTANCE KY TTE W/DOPPLER, COMPLETE KY TTE W/DOPPLER, COMPLETE HC US GUIDE FOR PERICARDIOCENTESIS HC ECHO MYOCARD BX HC IV PUSH SINGLE, INITIAL SUBSTANCE HC STATISTIC IV PUSH SINGLE INITIAL SUBSTANCE HC ECHO COMPLETE W DOPPLER W CONTRAST HC ECHO COMPLETE W DOPPLER W/O CONTRAST Tammy Fink MD [address] [place] [address] Cardiac Services [address] [place] [phone] Referral ID Status Reason Start Date Expiration Date Visits Re quested Visits Authorized [id number] Closed 12/22/2022 12/22/2023 1 1 ITY BAGGER Reason for Visit * CV Testing (Routine) - Closed Specialty Diagnoses / Procedures Referred By Sommer t Referred To Contact Cardiology Diagnoses CAD (coronary artery disease) Procedures Echocardiogram Complete ZZHC TTE W/DOPPLER, COMPLETE ZZHC ECHO COMPLETE W DOPPLER W CONTRAST ZZHC ECHO COMPLETE W DOPPLER W/O CONTRAST ZZHC IV PUSH SINGLE, INITIAL SUBSTANCE ZZHC US GUIDE FOR PERICARDIOCENTESIS ZZHC ECHO MYOCARD BX ZZC INJECTION, PERFLUTREN LIPID MICROSPHERES, PER ML ZZHC STATISTIC IV PUSH SINGLE INITIAL SUBSTANCE [place] ECHO MYOCARD BX [place] INJECTION, PERFLUTREN LIPID MICROSPHERES, PER ML [place] TTE W/DOPPLER, COMPLETE [place] IV PUSH SINGLE, INITIAL SUBSTANCE KY TTE W/DOPPLER, COMPLETE [place] TTE W/DOPPLER, COMPLETE HC US GUIDE FOR PERICARDIOCENTESIS HC ECHO MYOCARD BX HC IV PUSH SINGLE, INITIAL SUBSTANCE HC STATISTIC IV PUSH SINGLE INITIAL SUBSTANCE HC ECHO COMPLETE W DOPPLER W CONTRAST HC ECHO COMPLETE W DOPPLER W/O CONTRAST Tammy Fink MD [address] [place] [address] Cardiac Services [address] [place] [phone] Referral ID Status Reason Start Date Expiration Date Visits Re quested Visits Authorized [id number] Closed 12/22/2022 12/22/2023 1 1 Encounter Details Date Type Department Care Team (Latest Contact Info) Description 02/09/2023 6:45 AM UTILITY BAGGER - 02/09/2023 11:59 PM UTILITY BAGGER Hospital Encounter [facility] [address] [place] [phone] Tammy Fink MD [address] [facility] [address] [place], [place] [phone] CAD (coronary artery disease) Discharge Disposition: Home or Self Care Social History Tobacco Use Types Packs/Day Years [...] AM CDT documented as of this encounter Medications at Time of Discharge Medication Sig Dispensed Refills Start Date End Date amLODIPine (NORVASC) 10 MG tablet Take 10 mg by mouth daily 0 01/05/2022 calcium acetate (CALPHRON) 667 MG TABS tablet Take 2,668 mg by mouth 3 times daily 0 01/17/2021 carvedilol (COREG) 12.5 MG tablet Take 12.5 mg by mouth 2 times daily 0 03/16/2022 03/16/2023 folic acid (FOLVITE) 1 MG tablet Take 1 mg by mouth every morning 0 04/05/2021 lidocaine-prilocaine (EMLA) 2.5-2.5 % external cream three times a week Prior to dialysis site access on Wednesday, Wednesday, Wednesday 0 03/31/2021 multivitamin RENAL (MULTIVITAMIN RENAL) 1 MG capsule Take 1 capsule by mouth every morning 0 03/18/2021 omeprazole (PRILOSEC) [address] capsule Take 20 mg by mouth every morning 0 12/14/2019 simvastatin (ZOCOR) 20 MG tablet Take 20 mg by mouth every morning 0 04/24/2020 ustekinumab (STELARA) 90 MG/MLIndications:Crohn' s disease of large intestine with complication (H) Inject 1 ml ( 90 mg) subcutaneous every 4 weeks. 1 mL 5 12/02/2022 documented as of this encounter Plan of Treatment Upcoming Encounters Date Type Department Care Team (Late st Contact Info) Description 04/01/2023 1:15 PM UTILITY BAGGER Office Visit [address] [phone] Yolanda Wilkerson PA-C [address] [place] [address] [phone] 07/13/2023 8:00 AM CDT Virtual Visit [facility] Gastroenterology Clinic [address] [phone] Deuce Majano PA-C [address] [place] [address] [phone] documented as of this encounter Procedures Procedure Name Priority Date/Time Associated Diagnosis Comments ECHO COMPLETE Routine 02/09/2023 8:08 AM UTILITY BAGGER CAD (coronary artery disease) documented in this encounter Results * ECHO COMPLETE (02/09/2023 8:08 AM UTILITY BAGGER) LVEF 55-60% CARDIOLOGY RESULTS Anatomical Region Laterality Modality Echocardiography 02/09/2023 6:54 AM UTILITY BAGGER Narrative 02/09/2023 9:02 AM UTILITY BAGGER [id number]^MADHUSOYON^K^P [facility] Echocardiography Laboratory [address] [place] [address] Name: BECKY GALLOWAY : 1960 Study Date: 02/09/2023 06:54 AM Age: 62 yrs Gender: Male Patient Location: [facility] Reason For Study: CAD (coronary [...] Procedure Note Lorenzo Hussein MD - 02/09/2023 [id number]^ALEKS^K^P [facility] [address] [place] [address] Name: BECKY GALLOWAY : 1960 Study Date: 02/09/2023 06:54 AM Age: 62 yrs Gender: Male Patient Location: [facility] Reason For Study: CAD (coronary [...] AM Tammy Fink MD CV ECHO ORDERABLES documented in this encounter Visit Diagnoses Diagnosis CAD (coronary artery disease) Coronary atherosclerosis of unspecified type of vessel, pitka's point or graft documented in this encounter Care Teams Otolaryngology Teacher Relationship Specialty Start Date End Date [place] [phone] PCP - General Family Medicine 04/02/21 Chapin Khan MD [address] [place] [address] [phone] Urology 05/10/20 Danya Barraza, [facility] [address] [place] [address] [phone] Pharmacist Pharmacist Hvac Designer 12/25/20 Jeanette French, FATOUMATA [address] [place] [address] [phone] Specialty Patternmaker Wood Gastroenterology 12/30/21 Tammy Fink MD [address] [place] [address] [address] [place], [place] 953215 Cardiovascular Disease 02/24/22 [place] [address] [place] [address] [phone] Assigned Heart and Vascular Provider 03/28/22 Claude Rucker MD [address] [place] [address] 034385 Assigned Surgical Provider 04/11/22 Delroy Gore, [facility] [address] [place] [address] Assigned Nephrology Provider 04/25/22 [facility] [address] [place] [address] Assigned MTM Pharmacist 12/05/22 Chapin Ruvalcaba MD [address] [place] [address] [place] [address] Assigned Gastroenterology Provider 02/06/23 documented as of this encounter
--- OUTSIDE RECORDS SUMMARY | 2023-03-14 02:35 | XMS_ITS | Encounter Summary ---
Author Name Unknown Organization [facility] Address [address] [place] [address]. [place] [address] Care Team Providers Care Clinic Lead Name Role Phone Chapin Khan MD Unavailable [phone] Danya Barraza [facility] Unavailable [phone] Maximino Arredondo MD Primary Care Provider [phone] Jeanette French RN Unavailable [phone] Tammy Greenberg MD Unavailable [phone] Genaro Palacios MD Unavailable [phone] Claude Rucker MD Unavailable [phone] Delroy Gore APRN REFINING STILL OPERATOR Unavailable [phone] Danya Barraza [facility] Unavailable [phone] Chapin Ruvalcaba MD Unavailable [phone] Encounter Details Date Type Department Care Team (Latest Contact Info) Description 02/24/2023 Travel Social History Tobacco Use Types Packs/Day [...] st Contact Info) Description 04/01/2023 1:15 PM MEDICAL RECORDS FIELD TECHNICIAN Office Visit [address] [phone] Yolanda Wilkerson, PA-C [address] [place] [address] [phone] 07/13/2023 8:00 AM CDT Virtual Visit [facility] Gastroenterology Clinic [address] [place] [phone] Deuce Majano PA-C [address] [place] [address] [phone] documented as of this encounter Visit Diagnoses Not on filedocumented in this encounter Care Teams Clinic Lead Relationship Specialty Start Date End Date Maximino Arredondo MD [address] [place] [phone] PCP - General Family Medicine 04/02/21 Chapin Khan MD [address] [place] [address] Urology 05/10/20 Danya Barraza, [facility] [address] [place] [address]474 Pharmacist Pharmacist Chapter Relations Administrator 12/25/20 Jeanette French, RN [address] [place] [address] [phone] Specialty Dispatcher [place] [facility] 12/30/21 Tammy Greenberg MD [address] [place] [address] [address] [place], [place] [phone] Cardiovascular Disease 02/24/22 [place] [address] 783175 Assigned Heart and Vascular Provider 03/28/22 Claude Rucker MD [address] [place] [address] [phone] Assigned Surgical Provider 04/11/22 Delroy Gore, JOB PLACEMENT SPECIALIST REFINING STILL OPERATOR [address] [place] [address] [phone] Assigned Nephrology Provider 04/25/22 Danya Barraza, [facility] [address] [place] [address] Assigned MTM Pharmacist 12/05/22 Chapin Ruvalcaba MD [address] [place] [address] [address] [place] [address] Assigned Gastroenterology Provider 02/06/23 documented as of this encounter
--- OUTSIDE RECORDS SUMMARY | 2023-03-14 02:35 | XMS_ITS | Encounter Summary ---
Author Name Unknown Organization [place] Address [address] [place] [address]. [place] [address] Care Team Providers Care Director Nicu Name Role Phone Chapin Khan MD Unavailable [phone] Danya Barraza [facility] Unavailable [phone] Maximino Arredondo MD Primary Care Provider [phone] Jeanette French RN Unavailable [phone] Tammy Greenberg MD Unavailable [phone] Genaro Palacios MD Unavailable [phone] Claude Rucker MD Unavailable [phone] Delroy Gore APRN MANAGER BATTERY Unavailable [phone] Danya Barraza [facility] Unavailable [phone] Chapin Ruvalcaba MD Unavailable [phone] Encounter Details Date Type Department Care Team (Latest Contact Info) Description 03/05/2023 Travel Social History Tobacco Use Types Packs/Day [...] st Contact Info) Description 04/01/2023 1:15 PM EQUIPMENT PROCESSER STORAGE Office Visit [address] [phone] Yolanda Wilekrson, PA-C [address] [place] [address] 624055 07/13/2023 8:00 AM CDT Virtual Visit [facility] Gastroenterology Clinic [address] [place] [phone] Deuce Majano PA-C [address] [place] [address] [phone] documented as of this encounter Visit Diagnoses Not on filedocumented in this encounter Care Teams Director Nicu Relationship Specialty Start Date End Date Maximino Arredondo MD [address] [place] [address] PCP - General Family Medicine 04/02/21 Chapin Khan MD [address] [place] [address] Urology 05/10/20 Danya Barraza, [facility] [address] [place] [address] Pharmacist Pharmacist Two Way Radio Technician 12/25/20 Jeanette French, RN [address] [place] [address] [phone] Specialty Grants Specialist Gastroenterology 12/30/21 Tammy Greenberg MD [address] [place] [address] [address] [place], [place] 769795 Cardiovascular Disease 02/24/22 Genaro Palacios MD [address] 915435 Assigned Heart and Vascular Provider 03/28/22 Claude Rucker MD [address] [place] [address] [phone] Assigned Surgical Provider 04/11/22 Delroy Gore, HONEY PRODUCER MANAGER BATTERY [address] [place] [address] 195295 Assigned Nephrology Provider 04/25/22 Danya Barraza, [facility] [address] [place] [address] Assigned MTM Pharmacist 12/05/22 Chapin Ruvalcaba MD [address] [place] [address] [address] [place] [address] Assigned Gastroenterology Provider 02/06/23 documented as of this encounter
--- OUTSIDE RECORDS SUMMARY | 2023-03-14 02:35 | XMS_ITS | Encounter Summary ---
Author Name Unknown Organization [place] Address [address] [place] [address]. [place] [address] Care Team Providers Care Kennel Attendant Name Role Phone Chapin Khan MD Unavailable [phone] Danya Barraza [facility] Unavailable [phone] Maximino Arredondo MD Primary Care Provider [phone] Jeanette French RN Unavailable [phone] Tammy Greenberg MD Unavailable [phone] Genaro Palacios MD Unavailable [phone] Claude Rucker MD Unavailable [phone] Delroy Gore APRN VICE PRESIDENT SUPPLY CHAIN Unavailable [phone] Danya Barraza [facility] Unavailable [phone] Chapin Ruvalcaba MD Unavailable [phone] Reason for Visit * Auth/Cert (Routine) Specialty Diagnoses / Procedures Referred By Contac t Referred To Contact Surgery Diagnoses Mitral stenosis Mitral stenosis [I05.0] Procedures ZZC MÓNICA (TRANSESOPHAGEAL ECHO) ECHOCARDIOGRAM, TRANSESOPHAGEAL, WITH ANESTHESIA [facility] [address] [place] [address] Referral ID Status Reason Start Date Expiration Date Visits Re quested Visits Authorized [id number] 1 1 Encounter Details Date Type Department Care Team (Latest Contact Info) Description 02/25/2023 10:20 AM SHANK INSPECTOR - 02/25/2023 3:28 PM SHANK INSPECTOR Hospital Encounter Formerly [facility] Day [facility] [place] [address] [place] [phone] Tammy Greenberg MD 420 [facility] [address] [place] [address] Discharge Disposition: Home or Self Care Social [...] AM CDT documented as of this encounter Last Filed Vital Signs Vital Sign Reading Time Taken Comments Blood Pressure 113/72 02/25/2023 2:45 PM SHANK INSPECTOR Pulse 103 02/25/2023 10:38 AM SHANK INSPECTOR Temperature 36.4 ??C (97.5 ??F) 02/25/2023 2:45 PM CS T Respiratory Rate 16 02/25/2023 2:45 PM SHANK INSPECTOR Oxygen Saturation 98% 02/25/2023 2:45 PM SHANK INSPECTOR Inhaled Oxygen Concentration - - Weight 75.5 kg (166 lb 7.2 oz) 02/25/2023 10:38 AM SHANK INSPECTOR Height 180.3 cm (5' 11) 02/25/2023 10:38 AM SHANK INSPECTOR Body Mass Index 23.21 02/25/2023 10:38 AM SHANK INSPECTOR documented in this encounter Discharge Instructions * Attachments The following attachments cannot be sent through Care Everywhere. * (s) After Anesthesia (Sleep Medicine) (Sami) documented in this encounter Medications at Time of Discharge [...] st Contact Info) Description 04/01/2023 1:15 PM SHANK INSPECTOR Office Visit [address] [address] Yolanda Wilkerson PAAnhC [address] [place] [address] [phone] 07/13/2023 8:00 AM CDT Virtual Visit [facility] [address] [place] [address] Deuce Majano PA-C [address] [place] [address] documented as of this encounter Procedures Procedure Name Priority Date/Time Associated Diagnosis Comments ECHOCARDIOGRAM, TRANSESOPHAGEAL, WITH ANESTHESIA 02/25/2023 1:28 PM SHANK INSPECTOR Mitral stenosis documented in this encounter Visit Diagnoses Not on filedocumented in this encounter Administered Medications Inactive Administered Medications - up to 3 most recent administrations Medication Order MAR Action Action Date Dose Rate Site ondansetron (ZOFRAN ODT) ODT tab 4 mg 4 mg, Oral, EVERY 30 MIN PRN, nausea, Starting on Kasey 02/25/23 at 1523, For 2 doses, MAX total dose = 8 mg, including OR dosing. If not resolved in 15 minutes, then go to step 2 [prochlorperazine (COMPAZINE), if ordered]. With dry hands, peel back foil backing and gently remove tablet. Do not push oral disintegrating tablet through foil backing. Administer immediately on tongue and oral disintegrating tablet dissolves in seconds, then swallow with saliva. Liquid not required., Phase ll ondansetron (ZOFRAN) injection 4 mg 4 mg, Intravenous, EVERY 30 MIN PRN, nausea, Administer over 2-5 Minutes, Starting on Kasey 02/25/23 at 1523, For 2 doses, MAX total dose = 8 mg, including OR dosing. If not resolved in 15 minutes, then go to step 2 [prochlorperazine (COMPAZINE), if ordered]. Irritant., Phase ll oxyCODONE (ROXICODONE) tablet 5 mg 5 mg, Oral, ONCE PRN, moderate pain, Starting on Kasey 02/25/23 at 1523, For 1 dose, Max: 5 mg for opioid-na??ve patient., Phase ll oxyCODONE IR (ROXICODONE) tablet 10 mg 10 mg, Oral, ONCE PRN, severe pain, Starting on Kasey 02/25/23 at 1523, For 1 dose, Max: 5 mg for opioid-na??ve patient. Use caution with patient Age GREATER than 65 years, COPD, or CrCl LESS than 50 mL/min., Phase ll prochlorperazine (COMPAZINE) injection 5 mg 5 mg, Intravenous, EVERY 6 HOURS PRN, nausea, vomiting, Administer over 1-2 Minutes, Starting on Kasey 02/25/23 at 1523, Phase ll documented in this encounter Active and Recently Administered Medications Times are shown in SHANK INSPECTOR. PRN Medication Order 02/23/2023 02/24/2023 02/25/2023 ondansetron (ZOFRAN ODT) ODT tab 4 mg(Linked Group 1) 4 mg, Oral, EVERY 30 MIN PRN, nausea, Starting on Kasey 02/25/23 at 1523, For 2 doses, MAX total dose = 8 mg, including OR dosing. If not resolved in 15 minutes, then go to step 2 [prochlorperazine (COMPAZINE), if ordered]. With dry hands, peel back foil backing and gently remove tablet. Do not push oral disintegrating tablet through foil backing. Administer immediately on tongue and oral disintegrating tablet dissolves in seconds, then swallow with saliva. Liquid not required., Phase ll ondansetron (ZOFRAN) injection 4 mg(Linked Group 1) 4 mg, Intravenous, EVERY 30 MIN PRN, nausea, Administer over 2-5 Minutes, Starting on Kasey 02/25/23 at 1523, For 2 doses, MAX total dose = 8 mg, including OR dosing. If not resolved in 15 minutes, then go to step 2 [prochlorperazine (COMPAZINE), if ordered]. Irritant., Phase ll oxyCODONE (ROXICODONE) tablet 5 mg 5 mg, Oral, ONCE PRN, moderate pain, Starting on Kasey 02/25/23 at 1523, For 1 dose, Max: 5 mg for opioid-na??ve patient., Phase ll oxyCODONE IR (ROXICODONE) tablet 10 mg 10 mg, Oral, ONCE PRN, severe pain, Starting on Kasey 02/25/23 at 1523, For 1 dose, Max: 5 mg for opioid-na??ve patient. Use caution with patient Age GREATER than 65 years, COPD, or CrCl LESS than 50 mL/min., Phase ll prochlorperazine (COMPAZINE) injection 5 mg 5 mg, Intravenous, EVERY 6 HOURS PRN, nausea, vomiting, Administer over 1-2 Minutes, Starting on Kasey 02/25/23 at 1523, Phase ll Linked Groups Order Group 1: ondansetron (ZOFRAN ODT) ODT tab 4 mgJump to med 4 mg, Oral, EVERY 30 MIN PRN, nausea, Starting on Kasey 02/25/23 at 1523, For 2 doses, MAX total dose = 8 mg, including OR dosing. If not resolved in 15 minutes, then go to step 2 [prochlorperazine (COMPAZINE), if ordered]. With dry hands, peel back foil backing and gently remove tablet. Do not push oral disintegrating tablet through foil backing. Administer immediately on tongue and oral disintegrating tablet dissolves in seconds, then swallow with saliva. Liquid not required., Phase ll Or ondansetron (ZOFRAN) injection 4 mgJump to med 4 mg, Intravenous, EVERY 30 MIN PRN, nausea, Administer over 2-5 Minutes, Starting on Kasey 02/25/23 at 1523, For 2 doses, MAX total dose = 8 mg, including OR dosing. If not resolved in 15 minutes, then go to step 2 [prochlorperazine (COMPAZINE), if ordered]. Irritant., Phase ll documented in this encounter Care Teams Kennel Attendant Relationship Specialty Start Date End Date [place] [phone] PCP - General Family Medicine 04/02/21 Chapin Khan MD [address] [place] [address] Urology 05/10/20 Danya Barraza, [facility] [address] [place] [address] Pharmacist Pharmacist Broadcast Transmitter Operator 12/25/20 Jeanette French, [place] [address] [place] [address] 110465 Specialty Thread Tool Grinder Set Up Operator Gastroenterology 12/30/21 Tammy Greenberg MD 420 [facility] [address] [place] [address] Cardiovascular Disease 02/24/22 Genaro Palacios MD [address] [facility] [address] [place] [address] Assigned Heart and Vascular Provider 03/28/22 Claude Rucker MD [address] [place], [place] [phone] Assigned Surgical Provider 04/11/22 Delroy Gore APRN [facility] 9[address] [place], [place] [address] Assigned Nephrology Provider 04/25/22 Danya Barraza [facility] [address] [place], [place] [address] Assigned MTM Pharmacist 12/05/22 Chapin Ruvalcaba MD [address] [facility] [facility] [address] [place], [place] [address] Assigned Gastroenterology Provider 02/06/23 documented as of this encounter
--- OUTSIDE RECORDS SUMMARY | 2023-03-14 02:35 | XMS_ITS | Encounter Summary ---
Author Name Unknown Organization [place] Address [address] [place] [address]. [place] [address] Care Team Providers Care Drafter Heating And Ventilating Name Role Phone Chapin Khan MD Unavailable [phone] Danya Barraza [facility] Unavailable [phone] Maximino Arredondo MD Primary Care Provider [phone] Jeanette French RN Unavailable [phone] Tammy Greenberg MD Unavailable [phone] Genaro Palacios MD Unavailable [phone] Claude Rucker MD Unavailable [phone] Delroy Gore APRN OUTDOOR ILLUMINATING ENGINEER Unavailable [phone] Danya Barraza [facility] Unavailable [phone] Chapin Ruvalcaba MD Unavailable [phone] Encounter Details Date Type Department Care Team (Latest Contact Info) Description 02/18/2023 Travel Social History Tobacco Use Types Packs/Day [...] st Contact Info) Description 04/01/2023 1:15 PM FITNESS CENTRE MANAGER Office Visit [address] [address] Yolanda Wilkerson, PA-C [address] [place] [address] [phone] 07/13/2023 8:00 AM CDT Virtual Visit [facility] [address] [place] [phone] Deuce Majano PA-C [address] [place] [address] [phone] documented as of this encounter Visit Diagnoses Not on filedocumented in this encounter Care Teams Drafter Heating And Ventilating Relationship Specialty Start Date End Date Maximino Arredondo MD [address] [place] [address] PCP - General Family Medicine 04/02/21 Chapin Khan MD [address] [place] [address] Urology 05/10/20 Danya Barraza, [facility] [address] [place] [address] Pharmacist Pharmacist Chief Projectionist 12/25/20 Jeanette French, RN [address] [place] [address] [phone] Specialty Client Experience Consultant Gastroenterology 12/30/21 Tammy Greenberg MD [address] [place] [address] [address] [place], [place] 6875[address] Cardiovascular Disease 02/24/22 Genaro Palacios MD [address] [id number] Assigned Heart and Vascular Provider 03/28/22 Claude Rucker MD [address] [place] [address] 197465 Assigned Surgical Provider 04/11/22 Delroy Gore, STEAM SERVICE INSPECTOR OUTDOOR ILLUMINATING ENGINEER [address] [place] [address] 539365 Assigned Nephrology Provider 04/25/22 Danya Barraza, [facility] [address] [place] [address] Assigned MTM Pharmacist 12/05/22 Chapin Ruvalcaba MD [address] [place] [address] [address] [place] [address] Assigned Gastroenterology Provider 02/06/23 documented as of this encounter
--- OUTSIDE RECORDS SUMMARY | 2023-03-14 02:35 | XMS_ITS | Encounter Summary ---
Author Name Unknown Organization [facility] Address [address] [place] [address] Care Team Providers Care Turning Machine Set Up Operator Name Role Phone Chapin Khan MD Unavailable [phone] Danya Barraza [facility] Unavailable [phone] Maximino Arredondo MD Primary Care Provider [phone] Jeanette French RN Unavailable [phone] Tammy Fink MD Unavailable [phone] Genaro Palacios MD Unavailable [phone] Claude Rucker MD Unavailable [phone] Delroy Gore APRN MANAGER NEW PRODUCT Unavailable [phone] Danya Barraza [facility] Unavailable [phone] Chapin Ruvalcaba MD Unavailable [phone] Reason for Referral * CV Testing (Routine) - Closed Specialty Diagnoses / Procedures Referred By Contac t Referred To Contact Cardiology Diagnoses Mitral valve disorder Aortic valve disorder Tricuspid valve disorder CKD (chronic kidney disease) stage 5, GFR less than 15 ml/min (H) Organ transplant candidate Procedures Transesophageal Echocardiogram ZZC ECHO HEART,TRANSESOPHAGEAL,COMPLETE ZZHC ECHO MÓNICA, COMPLETE W CONTRAST ZZHC ECHO MÓNICA, COMPLETE W/O CONTRAST ZZC ECHO TRANSESOPH,JAIDEN ANOM,COMPLETE ZZHC DOPPLER ECHO PULSED, COMPLETE ZZHC DOPPLER ECHO PULSED, F/U OR LIMITED ZZHC DOPPLER ECHO COLOR FLOW VELOCITY MAP ZZH ECHO TRANSESOPHAGEAL (MÓNICA) ZZHC STATISTIC IV PUSH SINGLE INITIAL SUBSTANCE NC ECHO HEART,TRANSESOPHAGEAL,COMPLETE NC DOPPLER ECHO PULSED, COMPLETE NC DOPPLER ECHO PULSED, F/U OR LIMITED NC DOPPLER ECHO COLOR FLOW VELOCITY MAP NC ECHO TRANSESOPH,JAIDEN ANOM,COMPLETE NC ECHO TRANSESOPHAGEAL (MÓNICA) HC DOPPLER ECHO PULSED, COMPLETE HC DOPPLER ECHO PULSED, F/U OR LIMITED HC DOPPLER ECHO COLOR FLOW VELOCITY MAP HC STATISTIC IV PUSH SINGLE INITIAL SUBSTANCE HC ECHO TRANSESOPHAGEAL (MÓNICA) HC ECHO MÓNICA, COMPLETE W CONTRAST HC ECHO MÓNICA, COMPLETE W/O CONTRAST Tammy Fink MD 420 [facility] [address] [place] [address] [facility] [address] [place] [address] Referral ID Status Reason Start Date Expiration Date Visits Re quested Visits Authorized [id number] Closed 02/09/2023 02/09/2024 1 1 F LOAD DISPATCHER Reason for Visit * CV Testing (Routine) - Closed Specialty Diagnoses / Procedures Referred By Sommer t Referred To Contact Cardiology Diagnoses Mitral valve disorder Aortic valve disorder Tricuspid valve disorder CKD (chronic kidney disease) stage 5, GFR less than 15 ml/min (H) Organ transplant candidate Procedures Transesophageal Echocardiogram ZZC ECHO HEART,TRANSESOPHAGEAL,COMPLETE ZZHC ECHO MÓNICA, COMPLETE W CONTRAST ZZHC ECHO MÓNICA, COMPLETE W/O CONTRAST ZZC ECHO TRANSESOPH,JAIDEN ANOM,COMPLETE ZZHC DOPPLER ECHO PULSED, COMPLETE ZZHC DOPPLER ECHO PULSED, F/U OR LIMITED ZZHC DOPPLER ECHO COLOR FLOW VELOCITY MAP ZZH ECHO TRANSESOPHAGEAL (MÓNICA) ZZHC STATISTIC IV PUSH SINGLE INITIAL SUBSTANCE NC ECHO HEART,TRANSESOPHAGEAL,COMPLETE NC DOPPLER ECHO PULSED, COMPLETE NC DOPPLER ECHO PULSED, F/U OR LIMITED NC DOPPLER ECHO COLOR FLOW VELOCITY MAP NC ECHO TRANSESOPH,JAIDEN ANOM,COMPLETE NC ECHO TRANSESOPHAGEAL (MÓNICA) HC DOPPLER ECHO PULSED, COMPLETE HC DOPPLER ECHO PULSED, F/U OR LIMITED HC DOPPLER ECHO COLOR FLOW VELOCITY MAP HC STATISTIC IV PUSH SINGLE INITIAL SUBSTANCE HC ECHO TRANSESOPHAGEAL (MÓNICA) HC ECHO MÓNICA, COMPLETE W CONTRAST HC ECHO MÓNICA, COMPLETE W/O CONTRAST Tammy Fink MD [address] [place] [address] [address] Cardiac Services [address] [place] [address] Referral ID Status Reason Start Date Expiration Date Visits Re quested Visits Authorized [id number] Closed 02/09/2023 02/09/2024 1 1 Encounter Details Date Type Department Care Team (Latest Contact Info) Description 02/11/2023 9:39 AM CHIEF LOAD DISPATCHER - 02/11/2023 11:59 PM CHIEF LOAD DISPATCHER Hospital Encounter [facility] [address] [place] [address] Tammy Fink MD [address] [address] Mitral valve disorder; Aortic valve disorder; Tricuspid valve disorder; CKD (chronic kidney disease) stage 5, GFR less than 15 ml/min (H); Organ transplant candidate Discharge Disposition: Home or Self Care Social [...] Sign Reading Time Taken Comments Blood Pressure 106/62 02/11/2023 12:00 PM CHIEF LOAD DISPATCHER Pulse 97 02/11/2023 12:00 PM CHIEF LOAD DISPATCHER Temperature - - Respiratory Rate 16 02/11/2023 12:00 PM CHIEF LOAD DISPATCHER Oxygen Saturation 94% 02/11/2023 12:00 PM CHIEF LOAD DISPATCHER Inhaled Oxygen Concentration - - Weight - - Height - - Body Mass Index - - documented in this encounter Medications at Time [...] 5 12/02/2022 documented as of this encounter Miscellaneous Notes * Sedation Documentation - Natalie Reeves RN - 02/11/2023 11:16 AM CHIEF LOAD DISPATCHER Pt arrived in ECHO department for scheduled MÓNICA. Procedure explained, questions answered and consent signed. Discharge instructions discussed with patient. Pt's throat sprayed at 1030, therefore pt will not be able to eat or drink until 2 hours after at 1230. Informed pt of this time and encouraged to start with warm fluids and soft foods. Pt did not tolerate probe/procedure. A total of 75 mcg IV fentanyl and 5 mg IV versed were given for conscious sedation. Pt denied throat or chest pain after MÓNICA attempt. MÓNICA probe 61 used for procedure. Pt denied pain after procedure and was D/C home after awake and VSS. Escorted out to [facility] in [place] to meet pt's ride home. F LOAD DISPATCHER documented in this encounter Plan of Treatment Upcoming Encounters Date Type Department Care Team (Late st Contact Info) Description 04/01/2023 1:15 PM CHIEF LOAD DISPATCHER Office Visit [address] [phone] Yolanda Wilkerson PA-C [address] [place] [address] 337035 07/13/2023 8:00 AM CDT Virtual Visit [facility] [address] [place] [phone] Deuce Majano PA-C [address] [place] [phone] documented as of this encounter Procedures Procedure Name Priority Date/Time Associated Diagnosis Comments ECHO MÓNICA Routine 02/11/2023 12:29 PM CHIEF LOAD DISPATCHER Mitral valve disorder Aortic valve disorder Tricuspid valve disorder CKD (chronic kidney disease) stage 5, GFR less than 15 ml/min (H) Organ transplant candidate documented in this encounter Results * ECHO MÓNICA (02/11/2023 12:29 PM CHIEF LOAD DISPATCHER) Anatomical Region Laterality Modality Echocardiography 02/11/2023 10:3 0 AM CHIEF LOAD DISPATCHER Narrative 02/11/2023 12:17 PM CHIEF LOAD DISPATCHER [id number]^ALEKS^K^P [facility] Echocardiography Laboratory [address] [place] [address] Name: BECKY GALLOWAY : 1960 Study Date: 02/11/2023 10:30 AM Age: 62 yrs Gender: Male Patient Location: [facility] Reason For Study: Mitral valve disorder, Aortic valve disorder, Tricuspid valve di Ordering Physician: Tammy FINK Referring Physician: Tmamy FINK Performed By: MD Lorenzo Kat BSA: [...] Procedure Note Lorenzo Hussein MD - 02/11/2023 [id number]^ALEKS^Tammy^[facility] Ech[facility] [address] [place] [address] Name: BECKY GALLOWAY : 1960 Study Date: 02/11/2023 10:30 AM Age: 62 yrs Gender: Male Patient Location: [facility] Reason For Study: Mitral [...] probe. Report approved by: MD Lorenzo Doan 2:17 PM Lorenzo Kat MD CV ECHO ORDERABLES documented in this encounter Visit Diagnoses Diagnosis Mitral valve disorder Aortic valve disorder Aortic valve disorders Tricuspid valve disorder Tricuspid valve disorders, specified as nonrheumatic CKD (chronic kidney disease) stage 5, GFR less than 15 ml/min (H) Chronic kidney disease, Stage V Organ transplant candidate Awaiting organ transplant status documented in this encounter Administered Medications Inactive Administered Medications - up to 3 most recent administrations Medication Order MAR Action Action Date Dose Rate Site benzocaine 20% (HURRICAINE/TOPEX) 20 % spray 0.5-2 mL 0.5-2 mL (1-4 spray), Mouth/Throat, ONCE, On Kasey 02/11/23 at 1000, For 1 dose, Prior to provider being in room, spray throat with 1-4 sprays 5 minutes prior to procedure in the MÓNICA procedure room, Cardiac Intra-procedure $Given 02/11/2023 10:29 AM CHIEF LOAD DISPATCHER 0.5 mLs fentaNYL (PF) (SUBLIMAZE) injection 25 mcg 25 mcg, Intravenous, EVERY 2 MIN PRN, when verbally ordered by the prescriber during the procedure, Administer over 2 Minutes, Starting on Kasey 02/11/23 at 0954, Subsequent doses if needed for pain during procedure. If inadequate response to initial dose, may repeat up to maximum of 200 mcg total dose in 60 minutes. Doses can be exceeded under direct oversight of patient by physician. Caution: may have synergistic effect when used with midazolam., Cardiac Intra-procedure $Given 02/11/2023 10:40 AM CHIEF LOAD DISPATCHER 25 mcg $Given 02/11/2023 10:37 AM CHIEF LOAD DISPATCHER 50 mcg lidocaine (viscous) (XYLOCAINE) 2 % solution 15 mL 15 mL, Mouth/Throat, ONCE, On Kasey 02/11/23 at 1000, For 1 dose, Gargle and swallow. Once 20 minutes prior to the procedure in the MÓNICA procedure room. , Cardiac Intra-procedure $Given 02/11/2023 10:24 AM CHIEF LOAD DISPATCHER 30 mLs midazolam (VERSED) injection 1 mg 1 mg, Intravenous, Administer over 1 Minutes, EVERY 2 MIN PRN, sedation, when verbally ordered by the prescriber during the procedure, Starting on Kasey 02/11/23 at 0954, Give 1 mg initial dose for sedation at beginning of procedure. If inadequate sedation response, may give 1 mg every 2 minutes as needed when verbally ordered by the prescriber during the procedure. Maximum of 7.5 mg total dose. Doses can be exceeded under direct oversight of patient by physician. Caution: when used with opioids, may need lower doses. This drug may cause significant respiratory depression. Monitor respiratory status and vital signs carefully for 1 hour after each dose., Cardiac Intra-procedure $Given 02/11/2023 10:45 AM CHIEF LOAD DISPATCHER 1 mg $Given 02/11/2023 10:43 AM CHIEF LOAD DISPATCHER 0.5 mg $Given 02/11/2023 10:42 AM CHIEF LOAD DISPATCHER 0.5 mg sodium chloride 0.9 % infusion at 30 mL/hr, Intravenous, CONTINUOUS PRN, Administer over 2 Hours, (exclude from discharge list) May bolus using this IV during the procedure as needed and verbally directed by procedural provider. Record total infusion on APR and the I & O Doc Flow sheet, Cardiac Intra-procedure, Starting on Kasey 02/11/23 at 0954, Until Wed02/12/23 at 0204 $New Bag 02/11/2023 11:15 AM CHIEF LOAD DISPATCHER 500 mL/hr 500 mL/hr documented in this encounter Care Teams Turning Machine Set Up Operator Relationship Specialty Start Date End Date Maximino Arredondo MD [address] [place], [place] [address] [place] JOLENE Garcia [address] PCP - General Family Medicine 04/02/21 Chapin Khan MD [address] [place] [address] [phone] Urology 05/10/20 [facility] [address] [place] [address] [phone] Pharmacist Pharmacist Industrial Truck Mechanic 12/25/20 Jeanette French RN [address] [place] [address] [phone] Specialty Direct Care Worker Gastroenterology 12/30/21 Tammy Fink MD [address] [place] [address] [address] [place] [address] Cardiovascular Disease 02/24/22 Genaro Palacios MD 6405 [facility] [address] [place], [place] [address] Assigned Heart and Vascular Provider 03/28/22 Claude Rucker MD [address] [place] [address] [phone] Assigned Surgical Provider 04/11/22 Delroy Gore APRN MANAGER NEW PRODUCT [address] [place] [address] [phone] Assigned Nephrology Provider 04/25/22 Danya Barraza [facility] [address] [place] [address] Assigned MTM Pharmacist 12/05/22 Chapin Ruvalcaba MD 6 [facility] [address] [place] [address] 360825 Assigned Gastroenterology Provider 02/06/23 documented as of this encounter
--- OUTSIDE RECORDS SUMMARY | 2023-03-14 02:35 | XMS_ITS | Encounter Summary ---
Author Name Unknown Organization [facility] Address [address] [place] [address]. [place] [address] Care Team Providers Care Hydraulic Auto Jack Mechanic Name Role Phone Chapin Khan MD Unavailable [phone] Danya Barraza [facility] Unavailable [phone] Maximino Arredondo MD Primary Care Provider [phone] Jeanette French RN Unavailable [phone] Tammy Greenberg MD Unavailable [phone] Genaro Palacios MD Unavailable [phone] Claude Rucker MD Unavailable [phone] Delroy Gore APRN RESPIRATORY CARE PROGRAM DIRECTOR Unavailable [phone] Danya Barraza [facility] Unavailable [phone] Deuce MajanoC Unavailable [phone] Encounter Details Date Type Department Care Team (Latest Contact Info) Description 02/02/2023 Travel Social History Tobacco Use Types Packs/Day [...] st Contact Info) Description 04/01/2023 1:15 PM COFFEE PLANTATION WORKER Office Visit [address] [phone] Yolanda Wilkerson, PAAnhC [address] [place] [address] [phone] 07/13/2023 8:00 AM CDT Virtual Visit [facility] [address] 4th [place] [phone] Deuce Majano PA-C [address] [place] [address] [phone] documented as of this encounter Visit Diagnoses Not on filedocumented in this encounter Care Teams Hydraulic Auto Jack Mechanic Relationship Specialty Start Date End Date Maximino Arredondo MD [address] [place] [address] PCP - General Family Medicine 04/02/21 Chapin Khan MD [address] [place] [address] 42948 Urology 05/10/20 Danya Barraza, [facility] [address] [place] [address] 40112 Pharmacist Pharmacist Consulting Intern 12/25/20 Jeanette French, RN [address] [place] [address] [phone] Specialty Political Director Gastroenterology 12/30/21 Tammy Greenberg MD [address] [place] [address] [address] [place], [place] [address] Cardiovascular Disease 02/24/22 Genaro Palacios MD [address] [id number] [place] [address] [phone] Assigned Heart and Vascular Provider 03/28/22 Claude Rucker MD [address] [place] [address] [phone] Assigned Surgical Provider 04/11/22 Delroy Gore, PROFESS[facility] [address] [place] [address] [phone] Assigned Nephrology Provider 04/25/22 Danya Barraza [facility] [address] [place] [address] Assigned MTM Pharmacist 12/05/22 Deuce Majano PA-C [address] [place] [address] Assigned Gastroenterology Provider 01/23/23 02/05/23 documented as of this encounter
--- OUTSIDE RECORDS SUMMARY | 2023-03-14 02:35 | XMS_ITS | Encounter Summary ---
Author Name Unknown Organization [facility] Address [address] [place] [id number] Care Team Providers Care Furniture Installer Name Role Phone Chapin Khan MD Unavailable [phone] Danya Barraza [facility] Unavailable [phone] Maximino Arredondo MD Primary Care Provider [phone] Jeanette French RN Unavailable [phone] Tammy Fink MD Unavailable [phone] Genaro Palacios MD Unavailable [phone] Claude Rucker MD Unavailable [phone] Delroy Gore APRN SALES OUTFITTER Unavailable [phone] Danya Barraza [facility] Unavailable [phone] Chapin Ruvalcaba MD Unavailable [phone] Reason for Referral * CV Testing (Routine) [...] [facility] STATISTIC IV PUSH SINGLE INITIAL SUBSTANCE CO ECHO HEART,TRANSESOPHAGEAL,COMPLETE CO DOPPLER ECHO PULSED, COMPLETE CO DOPPLER ECHO PULSED, F/U OR LIMITED CO DOPPLER ECHO COLOR FLOW VELOCITY MAP CO ECHO TRANSESOPH,JAIDEN ANOM,COMPLETE CO ECHO TRANSESOPHAGEAL (MÓNICA) HC DOPPLER ECHO PULSED, COMPLETE HC DOPPLER ECHO PULSED, F/U OR LIMITED HC DOPPLER ECHO COLOR FLOW VELOCITY MAP HC STATISTIC IV PUSH SINGLE INITIAL SUBSTANCE HC ECHO TRANSESOPHAGEAL (MÓNICA) HC ECHO MÓNICA, COMPLETE W CONTRAST HC ECHO MÓNICA, COMPLETE W/O CONTRAST Tammy Fink MD [address] [place] [phone] Cardiac Services [address] [place] [phone] Referral ID Status Reason Start Date Expiration Date Visits Re quested Visits Authorized [id number] Closed 02/09/2023 02/09/2024 1 1 GER THERAPY Reason for Visit * Reason Comments Follow Up [facility] 1 year follow up w/ echo prior Encounter Details Date Type Department Care Team (Late st Contact Info) Description 02/09/2023 9:15 AM MANAGER THERAPY Office Visit [facility] [address] [phone] Tammy Fink MD [address] [place] [phone] Mitral valve disorder (Primary Dx); Aortic valve disorder; Tricuspid valve disorder; CKD (chronic kidney disease) stage 5, GFR less than 15 ml/min (H); Organ transplant candidate Social History Tobacco Use Types Packs/Day Years [...] Sign Reading Time Taken Comments Blood Pressure 126/63 02/09/2023 8:53 AM MANAGER THERAPY Pulse 101 02/09/2023 8:53 AM MANAGER THERAPY Temperature - - Respiratory Rate - - Oxygen Saturation 98% 02/09/2023 8:5 3 AM MANAGER THERAPY Inhaled Oxygen Concentration - - Weight 78.8 kg (173 lb 12.8 oz) 02/09/2023 8:53 AM MANAGER THERAPY Measured with shoes Height - - Body Mass Index 24.24 01/12/2023 7:36 AM MANAGER THERAPY documented in this encounter Patient Instructions * Patient Instructions* Hermilo Blanchard LPN - 02/09/2023 9:15 AM MANAGER THERAPY Complete a MÓNICA (transesophageal echocardiogram) Follow these instructions: 1. Report to the GOLD waiting room in the main hospital 2. DO NOT EAT OR DRINK ANYTHING FOR 6 HOURS PRIOR TO ARRIVAL. 3. The morning of your procedure you may take your scheduled medications with a SIP of water. 4. You will receive medication that makes you sleepy; you will need a transfer driver and someone to stay with you for 6 hours following this procedure. You should not make any legal decisions for 24 hours following discharge. What is a transesophageal echocardiogram (MÓNICA)? A transesophageal echocardiogram (MÓNICA) uses echocardiography to assess the structure and function of the heart. During the procedure, a transducer (like a microphone) sends out ultrasonic sound waves. When the transducer is placed at certain locations and angles, the ultrasonic sound waves move through the skin and other body tissues to the heart tissues, where the waves bounce or echo off of the heart structures. The transducer picks up the reflected waves and sends them to a computer. The computer displays the echoes as images of the heart mittal and valves. A traditional echocardiogram is done by putting the transducer on the surface of the chest. This iscalled a transthoracic echocardiogram. A transesophageal echocardiogram is done by inserting a probe with a transducer down the esophagus. This provides a clearer image of the heart because the soundwaves do not have to pass through skin, muscle, or bone tissue. The MÓNICA probe is much closer to theheart since the esophagus and heart are right next to each other. Afterwards, you may resume your usual diet and activities. GER THERAPY documented in this encounter Progress Notes * Tammy Fink MD - 02/09/2023 9:15 AM CST SUBJECTIVE: Becky Galloway is a 62 year old male who presents for evaluation to maintain renal transplant waitlist status. Past medical history is significant for Crohn's dz, HTN, paroxysmal atrial fibrillation and CKD on HD (started 11/2019). He had an NSTEMI in 11/2019 without coronary angiogram (trop 77) and had inferior hypokinesis noted on TTE in 2020 patient had a coronary angiogram which was completely normal with no vascular disease in the inferior wall territory. Patient known to have normal LV function. Currently patient is having some shortness of breath. At clinic he was short of breath. He is unable to walk more than a block. No PND or other heart failure symptoms. Because of the holiday schedulehe was dialyzed on Wednesday. Patient Active Problem List Diagnosis Date Noted Anemia 06/19/2022 Priority: Medium Aortic dissection, abdominal (H) 04/17/2022 Priority: Medium Current smoker 04/17/2022 Priority: Medium History of basal cell carcinoma 04/17/2022 Priority: Medium CAD (coronary artery disease) 04/17/2022 Priority: Medium Status post repair of arteriovenous fistula 03/31/2022 Priority: Medium IPMN (intraductal papillary mucinous neoplasm) 05/01/2021 Priority: Medium Crohn's disease of large intestine (H) 01/06/2021 Priority: Medium ESRD (end stage renal disease) (H) 06/10/2020 Priority: Medium Added automatically from request for surgery [id number] Organ transplant candidate 06/10/2020 Priority: Medium Added automatically from request for surgery [id number] PAF (paroxysmal atrial fibrillation) (H) 06/10/2020 Priority: Medium Benign essential hypertension 06/10/2020 Priority: Medium Acquired cyst of kidney 06/07/2020 Priority: Medium . Current Outpatient Medications Medication Sig calcium acetate (CALPHRON) 667 MG TABS tablet Take 2,668 mg by mouth 3 times daily folic acid (FOLVITE) 1 MG tablet Take 1 mg by mouth every morning lidocaine-prilocaine (EMLA) 2.5-2.5 % external cream three times a week Prior to dialysis site access on Wednesday, Wednesday, Wednesday multivitamin RENAL (MULTIVITAMIN RENAL) 1 MG capsule Take 1 capsule by mouth every morning omeprazole (PRILOSEC) [address] capsule Take 20 mg by mouth every morning simvastatin (ZOCOR) 20 MG tablet Take 20 mg by mouth every morning ustekinumab (STELARA) 90 MG/ML Inject 1 ml ( 90 mg) subcutaneous every 4 weeks. amLODIPine (NORVASC) 10 MG tablet Take 10 mg by mouth daily carvedilol (COREG) 12.5 MG tablet Take 12.5 mg by mouth 2 times daily Current Facility-Administered Medications Medication lidocaine 1% with EPINEPHrine 1:100,000 injection 3 mL Past Medical History: Diagnosis Date Aortic dissection (H) distal, thin. stable/chronic on MRCP 04/2021 Benign essential hypertension CAD (coronary artery disease) Cerebral infarction (H) Crohn's colitis (H) Crohn's disease of large intestine (H) 01/06/2021 Current smoker Esophageal reflux ESRD (end stage renal disease) on dialysis (H) History of basal cell carcinoma Hypertension Mixed hyperlipidemia NSTEMI (non-ST elevated myocardial infarction) (H) PAF (paroxysmal atrial fibrillation) (H) Past Surgical History: Procedure Laterality Date ABDOMEN SURGERY x 6. colon resections for crohn's disease APPENDECTOMY CHOLECYSTECTOMY COLONOSCOPY N/A 09/03/2020 Procedure: COLONOSCOPY, WITH POLYPECTOMY AND BIOPSY; Surgeon: Chapin Ruvalcaba MD; Location: [facility] GI COLONOSCOPY N/A 01/21/2022 Procedure: COLONOSCOPY, WITH POLYPECTOMY AND BIOPSY; Surgeon: Raman Marr MD; Location: GI CV CORONARY ANGIOGRAM N/A 07/09/2020 Procedure: CV CORONARY ANGIOGRAM; Surgeon: Luke Carvalho MD; Location: HEART CARDIAC DESIGN ENGINEERING TECHNICIAN ESOPHAGOSCOPY, GASTROSCOPY, DUODENOSCOPY (EGD), COMBINED N/A 09/03/2020 Procedure: ESOPHAGOGASTRODUODENOSCOPY, WITH FINE NEEDLE ASPIRATION BIOPSY, WITH ENDOSCOPIC ULTRASOUND GUIDANCE; Surgeon: Chapin Ruvalcaba MD; Location: GI IR DIALYSIS FISTULOGRAM LEFT 01/15/2022 IR DIALYSIS FISTULOGRAM LEFT 02/27/2022 LAPAROTOMY, LYSIS ADHESIONS, COMBINED N/A 05/01/2021 Procedure: Laparotomy, extensive lysis adhesions, combined; Surgeon: Driss Morales MD; Location: [facility] OR PANCREATECTOMY PARTIAL N/A 05/01/2021 Procedure: Open Subtotal Pancreatectomy, intra-op ultrasound; Surgeon: Driss Morales MD; Location: OR REVISION FISTULA ARTERIOVENOUS UPPER EXTREMITY Left 03/31/2022 Procedure: LEFT UPPER ARM FISTULA OUTFLOW REVISION FROM CEPHALIC VEIN TO JUGULAR VEIN WITH 10mm THIN-WALLED RINGED POLYTETRAFLUEROETHYLINE; Surgeon: Genaro Palacios MD; Location: OR VASCULAR SURGERY dialysis access- left upper Allergies Allergen Reactions Lisinopril Anaphylaxis and Other (See Comments) Shortness of breath Social History Socioeconomic History Marital status: Spouse name: Not on file Number of children: 1 Years of education: Not on file Highest education level: Not on file Occupational History 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 Not Asked Social History Narrative Not on file Social Determinants of Health Financial Resource Strain: Not on file Food Insecurity: Not on file Transportation Needs: Not on file Physical Activity: Not on file Stress: Not on file Social Connections: Not on file Interpersonal Safety: Not on file Housing Stability: Not on file Family History Problem Relation Age of Onset Breast Cancer Mother Coronary Artery Disease Father Hypertension Brother Anesthesia Reaction No family hx of Thrombosis No family hx of REVIEW OF SYSTEMS: General: negative, fever, chills, night sweats Skin: negative, acne, rash, and scaling Eyes: negative, double vision, eye pain, and photophobia Ears/Nose/Throat: negative, nasal congestion, and purulent rhinorrhea Respiratory: No cough, No hemoptysis, and negative Cardiovascular: negative, palpitations, tachycardia, irregular heart beat, and paroxysmal nocturnaldyspnea OBJECTIVE: Blood pressure 126/63, pulse 101, weight 78.8 kg (173 lb 12.8 oz), SpO2 98%. General Appearance: alert and no distress Head: Normocephalic. No masses, lesions, tenderness or abnormalities Eyes: conjuctiva clear, PERRL, EOM intact Ears: External ears normal. Canals clear. TM's normal. Nose: Nares normal Mouth: normal Neck: Supple, no cervical adenopathy, no thyromegaly Lungs: clear to auscultation Cardiac: regular rate and rhythm, normal S1 and S2, PSM/ESM. ASSESSMENT/PLAN: Patient here for evaluation to maintain renal transplant waitlist status. Patient with Crohn's disease and complications related to this leading to CKD. He is on dialysis for about 4 years. Currently patient is not very active but he reports shortness of breath. He is unable to walk more than 1 block. No PND or other heart failure symptoms. Because of the holiday schedule he was dialyzed on Wednesday. He does have a history of NSTEMI with inferior wall motion abnormality in the past with normal LV function. Patient had a normal coronary angiogram in 2020 showing no significant coronary artery disease supplying the inferior wall territory. Today's echocardiogram reviewed and the results were discussed with patient. Severe mitral annular calcification with the severe MR. Mean gradient 12 mmHg possibly partially related to MR. To have moderate aortic stenosis with a peak velocity of 3.3 m/s. Moderate to severe tricuspid insufficiency is present. Pulmonary artery systolic pressure is 65 mmHg plus RA pressure. Patient is not exactly predialysis to have this hemodynamic values. As he is feeling more and more progressively short of breath he did not need further evaluation of valvular heart disease. Will plan for a MÓNICA and will plan further after this test. Plan was discussed with patient. Total visit duration 30 minutes. this included [id number] interview, physical exam, chart review,review of echocardiogram and documentation. GER THERAPY documented in this encounter Nursing Notes * Chris Betancur - 02/09/2023 9:15 AM CST Chief Complaint Patient presents with Follow Up [facility] 1 year follow up w/ echo prior Vitals were taken and medications reconciled. Chris Betancur, EMT 8:55 AM GER THERAPY documented in this encounter Plan of Treatment Upcoming Encounters Date Type Department Care Team (Late st Contact Info) Description 04/01/2023 1:15 PM MANAGER THERAPY Office Visit [address] [phone] Yolanda Wilkerson PA-C [address] [place] [address] [phone] 07/13/2023 8:00 AM CDT Virtual Visit [facility] [address] [phone] Deuce Majano PA-C [address] [address] [phone] documented as of this encounter Results * ECHO MÓNICA (02/11/2023 12:29 PM MANAGER THERAPY) Anatomical Region Laterality Modality Echocardiography 02/11/2023 10:3 0 AM MANAGER THERAPY Narrative 02/11/2023 12:17 PM MANAGER THERAPY [id number]^ALEKS^Tammy^[facility] Echocardiography Laboratory [address] [place] [address] Name: BECKY GALLOWAY : 1960 Study Date: 02/11/2023 10:30 AM Age: 62 yrs Gender: Male Patient Location: [facility] Reason For Study: Mitral valve disorder, Aortic [...] Procedure Note Lorenzo Hussein MD - 02/11/2023 [id number]^ALEKS^K^P [facility] Echocardiography Laboratory [address] [place] [address] Name: BECKY GALLOWAY : 1960 Study Date: 02/11/2023 10:30 AM Age: 62 yrs Gender: Male Patient Location: [facility] Reason For Study: Mitral valve disorder, Aortic [...] Visit Diagnoses Diagnosis Mitral valve disorder- Primary Aortic valve disorder Aortic valve disorders Tricuspid valve disorder Tricuspid valve disorders, specified as nonrheumatic CKD (chronic kidney disease) stage 5, GFR less than 15 ml/min (H) Chronic kidney disease, Stage V Organ transplant candidate Awaiting organ transplant status Mitral valve disorder Aortic valve disorder Aortic valve disorders Tricuspid valve disorder Tricuspid valve disorders, specified as nonrheumatic CKD (chronic kidney disease) stage 5, GFR less than 15 ml/min (H) Chronic kidney disease, Stage V Organ transplant candidate Awaiting organ transplant status documented in this encounter Care Teams Furniture Installer Relationship Specialty Start Date End Date [place] [phone] PCP - General Family Medicine 04/02/21 Chapin Khan MD [address] [phone] Urology 05/10/20 Dnaya Barraza [facility] [address] [address] [phone] Pharmacist Pharmacist Stave Grader 12/25/20 Jeanette French, RN [address] [place] [address] [phone] Specialty Refrigeration Supervisor Gastroenterology 12/30/21 Tammy Fink MD [address] [facility] [address] [place], [place] [phone] Cardiovascular Disease 02/24/22 Genaro Palacios MD [address] [facility] [address] [place], [place] [phone] Assigned Heart and Vascular Provider 03/28/22 Claude Rucker MD [address] [place] [address] [phone] Assigned Surgical Provider 04/11/22 Delroy Gore, RECOVERY ADVOCATE SALES OUTFITTER [address] [place] [address] [phone] Assigned Nephrology Provider 04/25/22 Danya Barraza, [facility] [address] [place] [phone] Assigned MTM Pharmacist 12/05/22 Chapin Ruvalcaba MD [address] [facility] [address] [place], [place] 0[address] Assigned Gastroenterology Provider 02/06/23 documented as of this encounter
--- OUTSIDE RECORDS SUMMARY | 2023-03-14 02:35 | XMS_ITS | Encounter Summary ---
Author Name Unknown Organization [place] Address [address] [place] [address]. [place] [address] Care Team Providers Care Lap Cutter Truer Operator Name Role Phone Chapin Khan MD Unavailable [phone] Danya Barraza [facility] Unavailable [phone] Maximino Arredondo MD Primary Care Provider [phone] Jeanette French RN Unavailable [phone] Tammy Fink MD Unavailable [phone] Genaro Palacios MD Unavailable [phone] Claude Rucker MD Unavailable [phone] Delroy Gore APRN DIRECTOR OF UNDERGRADUATE ADMISSIONS Unavailable [phone] Danya Barraza [facility] Unavailable [phone] Chapin Ruvalcaba MD Unavailable [phone] Reason for Referral * CV Testing (Routine) [...] ZZHC STATISTIC IV PUSH SINGLE INITIAL SUBSTANCE IN ECHO HEART,TRANSESOPHAGEAL,COMPLETE IN DOPPLER ECHO PULSED, COMPLETE IN DOPPLER ECHO PULSED, F/U OR LIMITED IN DOPPLER ECHO COLOR FLOW VELOCITY MAP IN ECHO TRANSESOPH,JAIDEN ANOM,COMPLETE IN ECHO TRANSESOPHAGEAL (MÓNICA) HC DOPPLER ECHO PULSED, COMPLETE HC DOPPLER ECHO PULSED, F/U OR LIMITED HC DOPPLER ECHO COLOR FLOW VELOCITY MAP HC STATISTIC IV PUSH SINGLE INITIAL SUBSTANCE HC ECHO TRANSESOPHAGEAL (MÓNICA) HC ECHO MÓNICA, COMPLETE W CONTRAST HC ECHO MÓNICA, COMPLETE W/O CONTRAST Tammy Fink MD [address] [address] [facility] [address] [place] [address] Referral ID Status Reason Start Date Expiration Date Visits Re quested Visits Authorized [id number] Closed 02/11/2023 02/11/2024 1 1 MANAGEMENT OFFICER Reason for Visit * Auth/Cert (Routine) Specialty Diagnoses / Procedures Referred By Sommer t Referred To Contact Surgery Diagnoses Mitral stenosis Mitral stenosis [I05.0] Procedures ZZC MÓNICA (TRANSESOPHAGEAL ECHO) ECHOCARDIOGRAM, TRANSESOPHAGEAL, WITH ANESTHESIA [facility] [address] [place] [address] Referral ID Status Reason Start Date Expiration Date Visits Re quested Visits Authorized [id number] 1 1 Encounter Details Date Type Department Care Team (Latest Contact Info) Description 02/25/2023 1:00 PM CASH MANAGEMENT OFFICER - 02/25/2023 11:59 PM CASH MANAGEMENT OFFICER Hospital Encounter [facility] [address] [place] [address] Tammy Fnik MD [address] [address] Mitral valve disorder Discharge Disposition: Home or Self Care Social [...] st Contact Info) Description 04/01/2023 1:15 PM CASH MANAGEMENT OFFICER Office Visit [address] [phone] Yolanda Wilkerson PA-C [address] [place] [address] 169815 07/13/2023 8:00 AM CDT Virtual Visit [facility] [address] 4th [place] [phone] Deuce Majano PA-C [address] [place] [address] 937335 documented as of this encounter Procedures Procedure Name Priority Date/Time Associated Diagnosis Comments ECHO MÓNICA Routine 02/25/2023 3:12 PM CASH MANAGEMENT OFFICER Mitral valve disorder documented in this encounter Results * ECHO MÓNICA (02/25/2023 3:12 PM CASH MANAGEMENT OFFICER) LVEF 55-60% CARDIOLOGY RESULTS Anatomical Region Laterality Modality Echocardiography 02/25/2023 1:29 PM CASH MANAGEMENT OFFICER Narrative 02/25/2023 4:09 PM CASH MANAGEMENT OFFICER [id number]^ALEKS^Tammy^P [facility] Echocardiography Laboratory [address] [place] [address] Name: BECKY GALLOWAY : 1960 Study Date: 02/25/2023 01:29 PM Age: 62 yrs Gender: Male Patient Location: [facility] Reason For Study: Mitral valve [...] Procedure Note Clint Simon MD - 02/25/2023 [id number] [facility] [id number]^ALEKS^K^P [facility] Ech[facility] [address] [place] [address] Name: BECKY GALLOWAY : 1960 Study Date: 02/25/2023 01:29 PM Age: 62 yrs Gender: Male Patient Location: [facility] Reason For Study: Mitral valve [...] Moderate pulmonary hypertension. Right ventricular systolic pressure [id number] above the right atrial pressure. No pericardial [...] cm2. The mean gradient across the aortic [id number] mmHg. The peak aortic velocity is 3.2 [...] PM Tammy Fink MD CV ECHO ORDERABLES documented in this encounter Visit Diagnoses Diagnosis Mitral valve disorder documented in this encounter Care Teams Lap Cutter Truer Operator Relationship Specialty Start Date End Date [place] [phone] PCP - General Family Medicine 04/02/21 Chapin Khan MD [address] [place] [address] Urology 05/10/20 Danya Barraza [facility] [address] [place] [address] [phone] Pharmacist Pharmacist Pipe Chipper 12/25/20 Jeanette French, RN [address] [place] [address] 043305 Specialty Executive Sales Manager Gastroenterology 12/30/21 Tammy Fink MD 420 [facility] [address] [place], [place] 5[address] Cardiovascular Disease 02/24/22 Genaro Palacios MD [address] [facility] [address] [place], [place] 858[address] Assigned Heart and Vascular Provider 03/28/22 Claude Rucker MD [address] [place] [address] 572605 Assigned Surgical Provider 04/11/22 Delroy Gore, LIVE AMMUNITION INSPECTOR DIRECTOR OF UNDERGRADUATE ADMISSIONS [address] [place] [address] [phone] Assigned Nephrology Provider 04/25/22 Danya Barraza, [facility] [address] [place] [address] Assigned MTM Pharmacist 12/05/22 Chapin Ruvalcaba MD [address] [facility] [address] [address] [place], [place] [address] Assigned Gastroenterology Provider 02/06/23 documented as of this encounter
--- OUTSIDE RECORDS SUMMARY | 2023-03-14 02:35 | XMS_ITS | Encounter Summary ---
Author Name Unknown Organization [place] Address [address] [place] [address]. [place] [address] Care Team Providers Care Child Nutrition Assistant Name Role Phone Chapin Khan MD Unavailable [phone] [facility] Unavailable [phone] Maximino Arredondo MD Primary Care Provider [phone] Jeanette French RN Unavailable [phone] Tammy Greenberg MD Unavailable [phone] Genaro Palacios MD Unavailable [phone] Claude Rucker MD Unavailable [phone] Delroy Gore APRN WELDER RAILCAR MECHANIC Unavailable [phone] [facility] Unavailable [phone] Chapin Ruvalcaba MD Unavailable [phone] Encounter Details Date Type Department Care Team (Late st Contact Info) Description 02/18/2023 MyC Medical Advice [address] [phone] [place] Social History Tobacco Use Types Packs/Day Years [...] st Contact Info) Description 04/01/2023 1:15 PM ADMINISTRATOR Office Visit [address] [phone] Yolanda Wilkerson PA-C [address] [place] [address] [phone] 07/13/2023 8:00 AM CDT Virtual Visit [facility] [address] [phone] Deuce Majano PA-C [address] [place] [address] 222195 documented as of this encounter Visit Diagnoses Not on filedocumented in this encounter Additional Health Concerns Infection Onset Date Last Indicated Resolved Time Rule Out C-difficile 03/10/2023 03/10/2023 024 5:57 PM ADMINISTRATOR documented as of this encounter Care Teams Child Nutrition Assistant Relationship Specialty Start Date End Date Maximino Arredondo MD [address] [place] [address] PCP - General Family Medicine 04/02/21 Chapin Khan MD [address] [place] [address] [phone] Urology 05/10/20 [facility] [address] [place] [address] [phone] Pharmacist Pharmacist Night Shift 12/25/20 Jeanette French, FATOUMATA [address] [place] [address] 029115 Specialty Swine Nutritionist Gastroenterology 12/30/21 Tammy Greenberg MD [address] [place], [place] [address] [place], [place] [phone] Cardiovascular Disease 02/24/22 [place] [address] [place] [address] [place] [address] 107815 Assigned Heart and Vascular Provider 03/28/22 Claude Rucker MD [address] [place] [address] [phone] Assigned Surgical Provider 04/11/22 Delroy Gore, EMILY WELDER RAILCAR MECHANIC [address] [place] [address] [phone] Assigned Nephrology Provider 04/25/22 Danya Barraza, [facility] [address] [place] [address] [phone] Assigned MTM Pharmacist 12/05/22 Chapin Ruvalcaba MD [address] [place], [place] [address]B [address] [place] [address] Assigned Gastroenterology Provider 02/06/23 documented as of this encounter
--- OUTSIDE RECORDS SUMMARY | 2023-03-14 02:35 | XMS_ITS | Encounter Summary ---
Author Name Unknown Organization [place] Address [address] [place] [address]. [place] [address] Care Team Providers Care Pyrotechnist Name Role Phone Chapin Khan MD Unavailable [phone] Danya Barraza [facility] Unavailable [phone] Maximino Arredondo MD Primary Care Provider [phone] Jeanette French RN Unavailable [phone] Tammy Greenberg MD Unavailable [phone] Genaro Palacios MD Unavailable [phone] Claude Rucker MD Unavailable [phone] Delroy Gore APRN UTILITIES OPERATOR Unavailable [phone] Danya Barraza [facility] Unavailable [phone] Chapin Ruvalcaba MD Unavailable [phone] Reason for Visit * Auth/Cert (Routine) Specialty Diagnoses / Procedures Referred By Contac t Referred To Contact Surgery Diagnoses Mitral stenosis Mitral stenosis [I05.0] Procedures ZZC MÓNICA (TRANSESOPHAGEAL ECHO) ECHOCARDIOGRAM, TRANSESOPHAGEAL, WITH ANESTHESIA [facility] [address] [place] [address] Referral ID Status Reason Start Date Expiration Date Visits Re quested Visits Authorized [id number] 1 1 Encounter Details Date Type Department Care Team (Late st Contact Info) Description 02/25/2023 1:00 PM CAR FERRY CAPTAIN - 02/25/2023 2:10 PM CAR FERRY CAPTAIN Surgery [facility] [address] [place] [phone] GENERIC ANESTHESIA PROVIDER ECHOCARDIOGRAM, TRANSESOPHAGEAL, WITH ANESTHESIA Surgery Details Date/Time Status Location OR Service Patient Class Case Class Case Type Trauma Case? 02/25/23 1:00 PM Posted [facility] OR [facility] OR 11 Anesthesiology Same Day Surgery Elective Panel 1 Procedure LRB Anes Op Region Wound Class Comments ECHOCARDIOGRAM, TRANSESOPHAG EAL, WITH ANESTHESIA N/A General Heart II-Clean Contaminated Surgeon Surgeon Role Service Panel Clint Simon MD Assisting Cardiovascular 1 GENERIC ANESTHESIA PROVIDER Primary Anesthesiolog y 1 documented in this encounter Social History Tobacco Use Types Packs/Day Years [...] Sign Reading Time Taken Comments Blood Pressure 124/72 02/25/2023 10:38 AM CAR FERRY CAPTAIN Pulse 103 02/25/2023 10:38 AM CAR FERRY CAPTAIN Temperature 36.5 ??C (97.7 ??F) 02/25/2023 10:[address] Respiratory Rate 16 02/25/2023 10:38 AM CAR FERRY CAPTAIN Oxygen Saturation 99% 02/25/2023 10:38 AM CAR FERRY CAPTAIN Inhaled Oxygen Concentration - - Weight 75.5 kg (166 lb 7.2 oz) 02/25/2023 10:38 AM CAR FERRY CAPTAIN Height 180.3 cm (5' 11) 02/25/2023 10:38 AM CAR FERRY CAPTAIN Body Mass Index 23.21 02/25/2023 10:38 AM CAR FERRY CAPTAIN documented in this encounter Discharge Instructions * Attachments The following attachments cannot be sent through Care Everywhere. * (s) After Anesthesia (Sleep Medicine) (Tamazight) documented in this encounter Medications at Time [...] st Contact Info) Description 04/01/2023 1:15 PM CAR FERRY CAPTAIN Office Visit [address] [phone] Yolanda Wilkerson, PA-C [address] [place] [address] 07/13/2023 8:00 AM CDT Virtual Visit [facility] [address] [place] [address] Deuce Majano PA-C [address] [place] [address] documented as of this encounter Procedures Procedure Name Priority Date/Time Associated Diagnosis Comments ECHOCARDIOGRAM, TRANSESOPHAGEAL, WITH ANESTHESIA 02/25/2023 1:28 PM CAR FERRY CAPTAIN Mitral stenosis documented in this encounter Visit Diagnoses Diagnosis Mitral stenosis documented in this encounter Administered Medications Inactive [...] Recently Administered Medications Times are shown in CAR FERRY CAPTAIN. PRN Medication Order 02/23/2023 02/24/2023 02/25/2023 ondansetron [...] ll documented in this encounter Care Teams Pyrotechnist Relationship Specialty Start Date End Date [place] [phone] PCP - General Family Medicine 04/02/21 Chapin Khan MD [address] [place] [address] Urology 05/10/20 Danya Barraza [facility] [address] [place] [address] Pharmacist Pharmacist Digital X Ray Service Engineer 12/25/20 Jeanette French, RN [address] [place], [place] [phone] Specialty Buck Swamper Gastroenterology 12/30/21 Tammy Greenberg MD 420 [facility] [address] [place] [address] Cardiovascular Disease 02/24/22 Genaro Palacios MD [address] [facility] [address] [place] [address] Assigned Heart and Vascular Provider 03/28/22 Claude Rucker MD [address] [place] [address] [phone] Assigned Surgical Provider 04/11/22 Delroy Gore, J2EE PROGRAMMER UTILITIES OPERATOR [address] [place], [place] 3448[address] Assigned Nephrology Provider 04/25/22 Danya Barraza, [facility] [address] [place], [place] [address] Assigned MTM Pharmacist 12/05/22 Chapin Ruvalcaba MD 6 [facility] [address] [place], [place] 4[address] Assigned Gastroenterology Provider 02/06/23 documented as of this encounter
--- OUTSIDE RECORDS SUMMARY | 2023-03-14 02:35 | XMS_ITS | Encounter Summary ---
Author Name Unknown Organization [place] Address [address] [place] [address]. [place] [address] Care Team Providers Care Biofuels Production Manager Name Role Phone Chapin Khan MD Unavailable [phone] Danya Barraza [facility] Unavailable [phone] Maximino Arredondo MD Primary Care Provider [phone] Jeanette French RN Unavailable [phone] Tammy Greenberg MD Unavailable [phone] Genaro Palacios MD Unavailable [phone] Claude Rucker MD Unavailable [phone] Delroy Gore APRN AGENT BROKER Unavailable [phone] Danya Barraza [facility] Unavailable [phone] Chapin Ruvalcaba MD Unavailable [phone] Reason for Visit * Auth/Cert (Routine) Specialty Diagnoses / Procedures Referred By Contac t Referred To Contact Surgery Diagnoses Mitral stenosis Mitral stenosis [I05.0] Procedures ZZC MÓNICA (TRANSESOPHAGEAL ECHO) ECHOCARDIOGRAM, TRANSESOPHAGEAL, WITH ANESTHESIA [facility] Periop [address] [place] [address] Referral ID Status Reason Start Date Expiration Date Visits Re quested Visits Authorized [id number] 1 1 Encounter Details Date Type Department Care Team (Late st Contact Info) Description 02/25/2023 1:29 PM AUTOMOBILE SALES REPRESENTATIVE Anesthesia Event [facility] [address] [place] [address] Marcus Murray MD 420 [facility] [address] [facility] [address] [place] [address] Alma Brown APRN CRNA Anesthesia Record Procedure Summary Procedure Name Responsible Anesthesiologist Anesthesia Start Time Anesthesia Stop Time ECHOCARDIOGRAM, TRANSESOPHAGEAL, WITH ANESTHESIA (Heart) Marcus Murray MD 02/25/23 1329 02/25/23 1447 Events Date Time Event Comment 02/25/2023 1329 An Start 1329 An Start Data 1329 AN REASSESS I attest that I have identified and re-evaluated the patient immediately before the induction of anesthesia and I am satisfied that the anesthetic plan is suitable for the patient's condition and procedure. The first vital signs recorded are pre- induction. Alma Brown APRN CRNA 1332 Anesthesia Ready for Procedu re 1439 an stop data 1447 An Stop Electronically signed by Alma Brown APRN CRNA on February 25, 2023 2:47 PM Meds Name Total midazolam 1 mg/mL 2 mg lidocaine 2% 40 mg propofol 10 mg/mL 80 mg propofol drip mcg/kg/min 135.9 mg phenylephrine (JOSH-SYNEPHRINE) injection 400 mcg norepinephrine bolus 6.4 mcg/mL 6.4 mcg LR 600 mL * Agents Name NO HELIOX O2 N2O Air Exp Sevoflurane Exp Isoflurane Exp Desflurane Exp N2O Ins Sevoflurane Ins Isoflurane Ins Desflurane O2 Auxiliary * Blood No blood administrations on file. Lines, Drains, and Airways Type Details Placement Removal Hemodialysis Vascular Access Arteriovenous fistula; Left; Arm 05/01/21 0807 by Incision/Surgical Site 05/01/21 1131 by Tiarra Miller RN Incision/Surgical Site 03/31/22; 1439; L eft; Neck 03/31/22 1439 by Caitlin Martines RN Incision/Surgical Site 03/31/22; 1559; L eft; Shoulder 03/31/22 1559 by Tiarar Miller RN Peripheral IV 02/25/23; 1128; 20 G ; Left, Dorsal; Hand; Chlorhexidine; 2 02/25/23 1128 by Edgardo Jack RN 02/25/23 1525 by Nini Quintanilla RN documented in this encounter Social History Tobacco [...] AM CDT documented as of this encounter OR Notes * Anesthesia Preprocedure Evaluation - Marcus Murray MD - 03/02/2023 7:52 AM CST Anesthesia Pre-Procedure Evaluation Patient: Moiéss Whelan : 1960 Procedure : Procedure(s): ECHOCARDIOGRAM, TRANSESOPHAGEAL, WITH ANESTHESIA Past Medical History: Diagnosis Date Aortic dissection [...] AND BIOPSY; Surgeon: Chapin Ruvalcaba MD; Location: GI COLONOSCOPY N/A 01/21/2022 Procedure: COLONOSCOPY, WITH POLYPECTOMY AND BIOPSY; Surgeon: Raman Marr MD; Location: GI CV CORONARY ANGIOGRAM N/A 07/09/2020 Procedure: CV CORONARY ANGIOGRAM; Surgeon: Luke Carvalho MD; Location: HEART CARDIAC DIRECTOR SCRIPT ESOPHAGOSCOPY, GASTROSCOPY, DUODENOSCOPY (EGD), COMBINED N/A 09/03/2020 Procedure: ESOPHAGOGASTRODUODENOSCOPY, WITH FINE NEEDLE ASPIRATION BIOPSY, WITH ENDOSCOPIC ULTRASOUND GUIDANCE; Surgeon: Chapin Ruvalcaba MD; Location: GI IR DIALYSIS FISTULOGRAM LEFT 01/15/2022 IR DIALYSIS FISTULOGRAM LEFT 02/27/2022 LAPAROTOMY, LYSIS ADHESIONS, COMBINED N/A 05/01/2021 Procedure: Laparotomy, extensive lysis adhesions, combined; Surgeon: Driss Morales MD; Location: OR PANCREATECTOMY PARTIAL N/A 05/01/2021 Procedure: Open Subtotal Pancreatectomy, intra-op ultrasound; Surgeon: Driss Morales MD; Location: U OR REVISION FISTULA ARTERIOVENOUS UPPER EXTREMITY Left 03/31/2022 Procedure: LEFT UPPER ARM FISTULA OUTFLOW REVISION FROM CEPHALIC VEIN TO JUGULAR VEIN WITH 10mm THIN-WALLED RINGED POLYTETRAFLUEROETHYLINE; Surgeon: Genaro Palacios MD; Location: OR TRANSESOPHAGEAL ECHOCARDIOGRAM INTRAOPERATIVE N/A 02/25/2023 Procedure: ECHOCARDIOGRAM, TRANSESOPHAGEAL, WITH ANESTHESIA; Surgeon: GENERIC ANESTHESIA PROVIDER; Location: OR VASCULAR SURGERY dialysis access- left upper Allergies Allergen Reactions Lisinopril Anaphylaxis and Other (See Comments) Shortness of breath Social History Tobacco Use Smoking status: Every Day Packs/day: 0.25 Years: 50.00 Additional pack years: 0.00 Total pack years: 12.50 Types: Cigarettes Last attempt to quit: 12/04/2019 Years since quittin.2 Smokeless tobacco: Never Substance Use Topics Alcohol use: Yes Comment: rare Wt Readings from Last 1 Encounters: 02/25/23 75.5 kg (166 lb 7.2 oz) OUTSIDE LABS: CBC: Lab Results Component Value Date WBC 4.2 12/08/2022 WBC 6.2 09/23/2022 HGB 10.5 (L) 12/08/2022 HGB 7.2 (LL) 09/23/2022 HCT 33.2 (L) 12/08/2022 HCT 23.0 (L) 09/23/2022 PLT 63 (L) 12/08/2022 PLT 100 (L) 09/23/2022 BMP: Lab Results Component Value Date NA 137 12/08/2022 NA 137 09/23/2022 POTASSIUM 4.7 12/08/2022 POTASSIUM 3.5 09/23/2022 CHLORIDE 94 (L) 12/08/2022 CHLORIDE 95 (L) 09/23/2022 CO2 27 12/08/2022 CO2 31 (H) 09/23/2022 BUN 35.2 (H) 12/08/2022 BUN 12.6 09/23/2022 CR 7.66 (H) 12/08/2022 CR 3.61 (H) 09/23/2022 GLC 82 12/08/2022 GLC 146 (H) 09/23/2022 COAGS: Lab Results Component Value Date PTT 32 05/01/2021 INR 1.30 (H) 05/01/2021 POC: No results found for: BGM, HCG, HCGS HEPATIC: Lab Results Component Value Date ALBUMIN 4.1 12/08/2022 PROTTOTAL 7.1 12/08/2022 ALT 14 12/08/2022 AST 22 12/08/2022 ALKPHOS 87 12/08/2022 BILITOTAL 1.1 12/08/2022 OTHER: Lab Results Component Value Date PH 7.36 05/01/2021 LACT 0.6 (L) 05/03/2021 ELIER 9.8 12/08/2022 PHOS 4.7 (H) 05/05/2021 MAG 1.2 (L) 05/05/2021 LIPASE 115 (H) 11/12/2019 AMYLASE 34 05/02/2021 CRP 5.6 06/22/2007 SED 65 (H) 12/08/2022 Anesthesia Plan ASA Status: 3 Anesthesia Type: MAC. Consents Postoperative Care Comments: Marcus Murray MD I have reviewed the pertinent notes and labs in the chart from the past 30 days and (re)examined the patient. Any updates or changes from those notes are reflected in this note. MOBILE SALES REPRESENTATIVE * Anesthesia Postprocedure Evaluation - Dave Escalante MD - 02/25/2023 3:20 PM CST Patient: Moisés Whelan Procedure: Procedure(s): ECHOCARDIOGRAM, TRANSESOPHAGEAL, WITH ANESTHESIA Anesthesia Type: MAC Note: Disposition: Outpatient Postop Pain Control: Uneventful Sign Out: Well controlled pain PONV: No Neuro/Psych: Uneventful Sign Out: Acceptable/Baseline neuro status Airway/Respiratory: Uneventful Sign Out: Acceptable/Baseline resp. status CV/Hemodynamics: Uneventful Sign Out: Acceptable CV status; No obvious hypovolemia; No obvious fluid overload Other NRE: NONE DID A NON-ROUTINE EVENT OCCUR? No Last vitals: Vitals Value Taken Time BP 113/72 02/25/23 1445 Temp 36.4 ??C (97.5 ??F) 02/25/23 1445 Pulse 89 02/25/23 1441 Resp 16 02/25/23 1445 SpO2 98 % 02/25/23 1445 Vitals shown include unfiled device data. Electronically Signed By: Dave Escalante MD February 25, 2023 3:20 PM MOBILE SALES REPRESENTATIVE documented in this encounter Miscellaneous Notes * Anesthesia Care Transfer Note - Alma Brown APRN CRNA - 02/25/2023 2:48 PM CST Patient: Moisés Whelan Procedure: Procedure(s): ECHOCARDIOGRAM, TRANSESOPHAGEAL, WITH ANESTHESIA Diagnosis: Mitral stenosis [I05.0] Diagnosis Additional Information: No value filed. Anesthesia Type: MAC Note: Oropharynx: oropharynx clear of all foreign objects and spontaneously breathing Level of Consciousness: awake Oxygen Supplementation: room air Independent Airway: airway patency satisfactory and stable Dentition: dentition unchanged Vital Signs Stable: post-procedure vital signs reviewed and stable Report to RN Given: handoff report given Patient transferred to: Phase II Handoff Report: Identifed the Patient, Identified the Reponsible Provider, Reviewed the pertinent medical history, Discussed the surgical course, Reviewed Intra-OP anesthesia mangement and issues during anesthesia, Set expectations for post-procedure period and Allowed opportunity for questions andacknowledgement of understanding Vitals: Vitals Value Taken Time BP 113/72 02/25/23 1441 Temp Pulse 89 02/25/23 1441 Resp SpO2 98 % 02/25/23 1445 Vitals shown include unfiled device data. Electronically Signed By: Alma Brown APRN CRNA February 25, 2023 2:48 PM MOBILE SALES REPRESENTATIVE documented in this encounter Plan of Treatment Upcoming Encounters Date Type Department Care Team (Late st Contact Info) Description 04/01/2023 1:15 PM AUTOMOBILE SALES REPRESENTATIVE Office Visit [address] [phone] Yolanda Wilkerson PA-C [address] [place] [address] [phone] 07/13/2023 8:00 AM CDT Virtual Visit [facility] Gastroenterology [address] [phone] Deuce Majano PA-C [address] [place] [address] [phone] documented as of this encounter Visit Diagnoses Not on filedocumented in this encounter Administered Medications Inactive Administered Medications - up to 3 most recent administrations Medication Order MAR Action Action Date Dose Rate Site lactated ringers infusion Intravenous, CONTINUOUS PRN, Anesthesia Intra-op, Starting on Kasey 02/25/23 at 1329, Until Kasey 02/25/23 at 1447 $New Bag 02/25/2023 1:29 PM AUTOMOBILE SALES REPRESENTATIVE lidocaine 2% injection (MDV) Intravenous, PRN, Starting on Kasey 02/25/23 at 1331, Anesthesia Intra-op $Given 02/25/2023 1:31 PM AUTOMOBILE SALES REPRESENTATIVE 40 mg midazolam (VERSED) injection Intravenous, Administer over 2 Minutes, PRN, Starting on Kasey 02/25/23 at 1329, Anesthesia Intra-op $Given 02/25/2023 1:29 PM AUTOMOBILE SALES REPRESENTATIVE 2 mg norepinephrine bolus 6.4 mcg/mL Intravenous, CONTINUOUS PRN, Starting on Kasey 02/25/23 at 1353, Anesthesia Intra-op $New Bag 02/25/2023 1:53 PM AUTOMOBILE SALES REPRESENTATIVE 6.4 mcg phenylephrine (JOSH-SYNEPHRINE) injection Intravenous, CONTINUOUS PRN, Starting on Kasey 02/25/23 at 1342, Anesthesia Intra-op $Bolus 02/25/2023 1:47 PM AUTOMOBILE SALES REPRESENTATIVE 300 mcg $New Bag 02/25/2023 1:42 PM AUTOMOBILE SALES REPRESENTATIVE 100 mcg propofol (DIPRIVAN) infusion Intravenous, CONTINUOUS PRN, Starting on Kasey 02/25/23 at 1331, Anesthesia Intra-op Restarted 02/25/2023 2:20 PM AUTOMOBILE SALES REPRESENTATIVE 25 mcg/kg/min 11.325 mL/hr Rate/Dose Change 02/25/2023 1:43 PM AUTOMOBILE SALES REPRESENTATIVE 50 mcg/kg/min 22.6 5 mL/hr Rate/Dose Change 02/25/2023 1:40 PM AUTOMOBILE SALES REPRESENTATIVE 100 mcg/kg/min 45. 3 mL/hr propofol (DIPRIVAN) injection 10 mg/mL vial Intravenous, PRN, Starting on Kasey 02/25/23 at 1331, Anesthesia Intra-op $Given 02/25/2023 2:20 PM AUTOMOBILE SALES REPRESENTATIVE 10 mg $Given 02/25/2023 2:17 PM AUTOMOBILE SALES REPRESENTATIVE 10 mg $Given 02/25/2023 2:13 PM AUTOMOBILE SALES REPRESENTATIVE 10 mg documented in this encounter Care Teams Biofuels Production Manager Relationship Specialty Start Date End Date [place] [address] PCP - General Family Medicine 04/02/21 Chapin Khan MD [address] [place] [address] Urology 05/10/20 Danya Barraza, [facility] [address] [place] [phone] Pharmacist Pharmacist Back Stayer 12/25/20 Jeanette French, RN [address] [place] [address] [phone] Specialty Special Education Kindergarten Teacher Gastroenterology 12/30/21 Tammy Greenberg MD [address] [place] [address] [address] [place], [place] [phone] Cardiovascular Disease 02/24/22 Genaro Palacios MD [address] [phone] Assigned Heart and Vascular Provider 03/28/22 Claude Rucker MD [address] [place] [address] 275775 Assigned Surgical Provider 04/11/22 Delroy Gore, SEASONER HAND AGENT BROKER [address] [place] [address] [phone] Assigned Nephrology Provider 04/25/22 Danya Barraza [facility] [address] [place] [address]3418 Assigned MTM Pharmacist 12/05/22 Chapin Ruvalcaba MD [address] [place] [address] [address] [place] [address] Assigned Gastroenterology Provider 02/06/23 documented as of this encounter
--- OUTSIDE RECORDS SUMMARY | 2023-03-14 02:36 | XMS_ITS | Encounter Summary ---
Author Name Unknown Organization [facility] Address [address] [place] [address]. [place] [address] Care Team Providers Care Estimator Project Manager Name Role Phone Chapin Khan MD Unavailable [phone] Danya Barraza [facility] Unavailable [phone] Maximino Arredondo MD Primary Care Provider [phone] Jeanette French RN Unavailable [phone] Tammy Greenberg MD Unavailable [phone] Genaro Palacios MD Unavailable [phone] Claude Rucker MD Unavailable [phone] Delroy Gore APRN INPATIENT PHARMACIST Unavailable [phone] Danya Barraza [facility] Unavailable [phone] Deuce Majano PA-C Unavailable [phone] Chapin Ruvalcaba MD Unavailable [phone] Encounter Details Date Type Department Care Team (Late st Contact Info) Description 01/28/2023 [facility] Gastroenterology Clinic [address] [place] [address] Roslyn Foley, RN Social History Tobacco Use Types Packs/Day Years [...] st Contact Info) Description 04/01/2023 1:15 PM CRATER AND PACKER Office Visit [address] [phone] Yolanda Wilkerson PA-C [address] [place] [address] [phone] 07/13/2023 8:00 AM CDT Virtual Visit [facility] [address] [phone] Deuce Majano PA-C [address] [place] [address] [phone] documented as of this encounter Visit Diagnoses Not on filedocumented in this encounter Additional Health Concerns Infection Onset Date Last Indicated Resolved Time Rule Out C-difficile 03/10/2023 03/10/2023 024 5:57 PM CRATER AND PACKER documented as of this encounter Care Teams Estimator Project Manager Relationship Specialty Start Date End Date Maximino Arredondo MD [address] [facility] [place] [phone] PCP - General Family Medicine 04/02/21 Chapin Khan MD [address] [place] [address]23 Urology 05/10/20 [facility] [address] [place] [address] 01106 Pharmacist Pharmacist Director Business 12/25/20 Jeanette French, FATOUMATA [address] [place] [address] [phone] Specialty Student Liaison Officer Gastroenterology 12/30/21 Tammy Greenberg MD [address] [place] [address] [phone] Cardiovascular Disease 02/24/22 Genaro Palacios MD [address] [facility] [address] [place] [address] [phone] Assigned Heart and Vascular Provider 03/28/22 Claude Rucker MD [address] [place] [address] 750805 Assigned Surgical Provider 04/11/22 Delroy Gore APRN INPATIENT PHARMACIST [address] [place] [address] [phone] Assigned Nephrology Provider 04/25/22 Danya Barraza, [facility] [address] [place] [address] [phone] Assigned MTM Pharmacist 12/05/22 Deuce Majano PA-C [address] [place], [place] 486735 Assigned Gastroenterology Provider 01/23/23 02/05/23 Chapin Ruvalcaba MD [address] [facility] [address] [place], [place] 506465 Assigned Gastroenterology Provider 02/06/23 documented as of this encounter
--- OUTSIDE RECORDS SUMMARY | 2023-03-14 02:36 | XMS_ITS | Encounter Summary ---
Author Name Unknown Organization [place] Address [address] [place] [address]. [place] [address] Care Team Providers Care Diet Attendant Name Role Phone Chapin Khan MD Unavailable [phone] Danya Barraza [facility] Unavailable Maximino Arredondo MD Primary Care Provider [phone] Jeanette French RN Unavailable [phone] Tammy Greenberg MD Unavailable [phone] Genaro Palacios MD Unavailable [phone] Claude Rucker MD Unavailable [phone] Delroy Gore APRN TIN CUTTER Unavailable [phone] Danya Barraza [facility] Unavailable [phone] Deuce Majano PA-C Unavailable [phone] Chapin Ruvalcaba MD Unavailable [phone] Encounter Details Date Type Department Care Team (Late st Contact Info) Description 12/25/2022 [facility] [place] [phone] [facility] [address] [place] [address] Sarah Munoz Social History Tobacco Use Types Packs/Day Years [...] PHQ-2 Answer Date Recorded PHQ-2 Score 0 11/26/2022 Adolescent Education Answer Date Record ed Getting [...] st Contact Info) Description 04/01/2023 1:15 PM PUBLIC AFFAIRS SPECIALIST Office Visit [address] [phone] Yolanda Wilkerson PA-C [address] [place] [address] 119495 07/13/2023 8:00 AM CDT Virtual Visit [facility] Gastroenterology Clinic [address] [phone] Deuce aMjano PA-C [address] [place] [address] [phone] documented as of this encounter Visit Diagnoses Not on filedocumented in this encounter Additional Health Concerns Infection Onset Date Last Indicated Resolved Time Rule Out C-difficile 03/10/2023 03/10/2023 024 5:57 PM PUBLIC AFFAIRS SPECIALIST documented as of this encounter Care Teams Diet Attendant Relationship Specialty Start Date End Date Maximino Arredondo MD [address] [place] [phone] PCP - General Family Medicine 04/02/21 Chapin Khan MD [address] [place] [address] [phone] Urology 05/10/20 Danya Barraza, [facility] [address] [place] [address] [phone] Pharmacist Pharmacist Senior Ui Web Developer 12/25/20 Jeanette French, FATOUMATA [address] [place] [address] [phone] Specialty Grape Cutter Gastroenterology 12/30/21 Tammy Greenberg MD [address] [place] [address] [place] [address] 143635 Cardiovascular Disease 02/24/22 Genaro Palacios MD 6405 [facility] [address] [place], [place] 536045 Assigned Heart and Vascular Provider 03/28/22 Claude Rucker MD [address] [place] [address] [phone] Assigned Surgical Provider 04/11/22 Delroy Gore, OIL DELIVERER TIN CUTTER [address] [place] [address] 487755 Assigned Nephrology Provider 04/25/22 Danya Barraza, [facility] [address] [place] [address] [phone] Assigned MTM Pharmacist 12/05/22 Deuce Majano PA-C [address] [place], [place] 046885 Assigned Gastroenterology Provider 01/23/23 02/05/23 Chapin Ruvalcaba MD [address] [facility] [address] [place], [place] 0078[address] Assigned Gastroenterology Provider 02/06/23 documented as of this encounter
--- OUTSIDE RECORDS SUMMARY | 2023-03-14 02:36 | XMS_ITS | Encounter Summary ---
Author Name Unknown Organization [place] Address [address] [place] [address]. [place] [address] Care Team Providers Care Car Shunter Name Role Phone Chapin Khan MD Unavailable [phone] [facility] Unavailable [phone] Maximino Arredondo MD Primary Care Provider [phone] Jeanette French RN Unavailable [phone] Tammy Greenberg MD Unavailable [phone] Genaro Palacios MD Unavailable [phone] Claude Rucker MD Unavailable [phone] Delroy Gore APRN EXECUTIVE CHEF ASSISTANT Unavailable [phone] [facility] Unavailable [phone] Deuce Majano PA-C Unavailable [phone] Chapin Ruvalcaba MD Unavailable [phone] Encounter Details Date Type Department Care Team (Late st Contact Info) Description 12/25/2022 [facility] [address] [place] [address] Roslyn Foley, RN Social History [...] st Contact Info) Description 04/01/2023 1:15 PM SMALL PRODUCTS I ASSEMBLER Office Visit [address] [phone] Yolanda Wilkerson PA-C [address] [place] [address] 191725 07/13/2023 8:00 AM CDT Virtual Visit [facility] Gastroenterology Clinic [address] [phone] Deuce Majano PA-C [address] [place] [address] [phone] documented as of this encounter Visit Diagnoses Not on filedocumented in this encounter Additional Health Concerns Infection Onset Date Last Indicated Resolved Time Rule Out C-difficile 03/10/2023 03/10/2023 024 5:57 PM SMALL PRODUCTS I ASSEMBLER documented as of this encounter Care Teams Car Shunter Relationship Specialty Start Date End Date Maximino Arredondo MD [address] [facility] [place] [phone] PCP - General Family Medicine 04/02/21 Chapin Khan MD [address] [place] [address] 25372 Urology 05/10/20 [facility] [address] [place] [address] 57005 Pharmacist Pharmacist Wound Care Physician 12/25/20 Jeanette French, FATOUMATA [address] [place] [address] [phone] Specialty Lock And Dam Repairer Gastroenterology 12/30/21 Tammy Greenberg MD [address] [place] [address] [phone] Cardiovascular Disease 02/24/22 Genaro Palacios MD [address] [facility] [address] [place] [address] 810395 Assigned Heart and Vascular Provider 03/28/22 Claude Rucker MD [address] [place] [address] [phone] Assigned Surgical Provider 04/11/22 Delroy Gore APRN EXECUTIVE CHEF ASSISTANT [address] [place] [address] [phone] Assigned Nephrology Provider 04/25/22 Danya Barraza, [facility] [address] [place] [address] [phone] Assigned MTM Pharmacist 12/05/22 Deuce Majano PA-C 9[address] [place], [place] 376215 Assigned Gastroenterology Provider 01/23/23 02/05/23 Chapin Ruvalcaba MD [address] [facility] [address] [place], [place] 115895 Assigned Gastroenterology Provider 02/06/23 documented as of this encounter
--- OUTSIDE RECORDS SUMMARY | 2023-03-14 02:36 | XMS_ITS | Encounter Summary ---
Author Name Unknown Organization [facility] Address [address] [place] [address]. [place] [address] Care Team Providers Care Air Support Control Officer Name Role Phone Chapin Khan MD Unavailable [phone] Danya Barraza [facility] Unavailable [phone] Maximino Arredondo MD Primary Care Provider [phone] Jeanette French RN Unavailable [phone] Tammy Greenberg MD Unavailable [phone] Genaro Palacios MD Unavailable [phone] Claude Rucker MD Unavailable [phone] Delroy Gore APRN ETHANOL QUALITY LEADER Unavailable [phone] Danya Barraza [facility] Unavailable [phone] Deuce Majano PA-C Unavailable [phone] Chapin Ruvalcaba MD Unavailable [phone] Encounter Details Date Type Department Care Team (Late st Contact Info) Description 12/15/2022 [facility] [address] [place] [address] Rebeca Burns, RN Social History Tobacco Use Types Packs/Day [...] st Contact Info) Description 04/01/2023 1:15 PM SECTIONAL BELT MOLD ASSEMBLER Office Visit [address] [phone] Yolanda Wilkerson PA-C [address] [place] [address] [phone] 07/13/2023 8:00 AM CDT Virtual Visit [facility] [address] [phone] Deuce Majano PA-C [address] [place] [address] [phone] documented as of this encounter Visit Diagnoses Not on filedocumented in this encounter Additional Health Concerns Infection Onset Date Last Indicated Resolved Time Rule Out C-difficile 03/10/2023 03/10/2023 024 5:57 PM SECTIONAL BELT MOLD ASSEMBLER documented as of this encounter Care Teams Air Support Control Officer Relationship Specialty Start Date End Date Maximino Arredondo MD [address] [facility] [place] [phone] PCP - General Family Medicine 04/02/21 Chapin Khan MD [address] [place] [address] [phone] Urology 05/10/20 Danya Barraza, [facility] [address] [place] [address] 625235 Pharmacist Pharmacist Bookseamer Blindstitch 12/25/20 Jeanette French, FATOUMATA [address] [place] [address] [phone] Specialty Upscale Security Officer Gastroenterology 12/30/21 Tammy Greenberg MD [address] [place] [address] 619155 Cardiovascular Disease 02/24/22 Genaro Palacios MD [address] [facility] [address] [place], [place] 740[address] Assigned Heart and Vascular Provider 03/28/22 Claude Rucker MD [address] [place] [address] [phone] Assigned Surgical Provider 04/11/22 Delroy Gore APRN ETHANOL QUALITY LEADER [address] [place] [address] [phone] Assigned Nephrology Provider 04/25/22 Danya Barraza, [facility] [address] [place] [address] 564805 Assigned MTM Pharmacist 12/05/22 Deuce Majano PA-C [address] [place], [place] [address] Assigned Gastroenterology Provider 01/23/23 02/05/23 Chapin Ruvalcaba MD [address] [facility] [address] [place] [address] Assigned Gastroenterology Provider 02/06/23 documented as of this encounter
--- OUTSIDE RECORDS SUMMARY | 2023-03-14 02:36 | XMS_ITS | Encounter Summary ---
Author Name Unknown Organization [facility] Address [address] [place] [address]. [place] [address] Care Team Providers Care Railcar Mechanic Name Role Phone Chapin Khan MD Unavailable [phone] Danya Barraza [facility] Unavailable [phone] Maximino Arredondo MD Primary Care Provider [phone] Jeanette French RN Unavailable [phone] Tammy Greenberg MD Unavailable [phone] Genaro Palacios MD Unavailable [phone] Claude Rucker MD Unavailable [phone] Delroy Gore APRN TRANSITIONAL LIVING SPECIALIST Unavailable [phone] Danya Barraza [facility] Unavailable [phone] Deuce Majano PA-C Unavailable [phone] Reason for Visit * Reason Comments RECHECK Encounter Details Date Type Department Care Team (Late st Contact Info) Description 02/01/2023 9:20 AM SENIOR MANAGER Virtual Visit [facility] [address] [place] [address] Chapin Ruvalcaba MD [address] [place] [address] [address] [place] [address] IPMN (intraductal papillary mucinous neoplasm) (Primary Dx) Social History Tobacco Use Types [...] Sign Reading Time Taken Comments Blood Pressure - - Pulse - - Temperature - - Respiratory Rate - - Oxygen Saturation - - Inhaled Oxygen Concentration - - Weight 73.8 kg (162 lb 11.2 oz) 02/01/2023 9:13 AM SENIOR MANAGER Height - - Body Mass Index 22.69 01/12/2023 7:36 AM SENIOR MANAGER documented in this encounter Patient Instructions * Patient Instructions* Roslyn Foley RN - 02/01/2023 9:20 AM SENIOR MANAGER You will find a brief summary of your discussion and care plan from today's visit below. Dr Nettles outlined the following steps after your recent clinic visit: RECOMMENDATIONS: - Check fecal elastase - Repeat MRI abdomen without contrast in 1 year (ESRD). Please call with any questions or concerns regarding your clinic visit today. It is a pleasure being involved in your health care. Contacts post-consultation depending on your need: Schedule Clinic Appointments [phone], option 1 Allie Foley RN Fruit Raiser [phone] Nova Lamas, OR fire alarm mechanic [phone] GI Procedure Scheduling [phone], option 2 For urgent/emergent questions after business hours, you may reach the on-call GI Fellow by contacting the [facility] digital color press operator at . How to I schedule a follow-up visit? If you did not schedule a follow-up visit today, please call [phone] option #1 to schedule a follow-up office visit. How do I schedule labs, imaging studies, or procedures that were ordered in clinic today? Labs: To schedule lab appointment at the [facility], use my chart or call [phone]. If you have a [facility] lab closer to home where you are regularly seen you can give them a call. Procedures: If a colonoscopy, upper endoscopy, breath test, esophageal manometry, or pH impedence was ordered today, our endoscopy team will call you to schedule this. If you have not heard from our endoscopy team within a week, please call [phone] to schedule. Imaging Studies: If you were scheduled for a CT scan, X-ray, MRI, ultrasound, HIDA scan or other imaging study, please call [phone] to have this scheduled. Referral: If a referral to another specialty was ordered, expect a phone call or follow instructions above. If you have not heard from anyone regarding your referral in a week, please call our clinicto check the status. I recommend signing up for SimpleRelevance access if you have not already done so and are comfortable with using a computer. This allows for online access to your lab results and also helps you communicate efficiently with the clinic should any questions arise in your care. OR MANAGER documented in this encounter Progress Notes * Chapin Ruvalcaba MD - 02/01/2023 9:20 AM CST Virtual Visit Details Type of service: Video Visit Start time 9.20 AM Stop time 9.38 AM Originating Location (pt. 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 Last seen 12/16/20. PMH significant for Crohn's with multiple bowel surgeries being followed by Dr. Fairbanks. CKD since an aortic dissection 05/2020 now on HD. Basal cell. Htn. Had incidentally dilated pancreatic duct with cystic change in the pancreatic tail incidentally identified on a non-contrast CT 07/30/20. EUS by myself 09/03/20 showed progressive fusiform dilation of the main pancreatic duct towards the left of midline with the duct measuring up to 13 mm in diameter. Needle aspiration returned thick viscous/gelatinous mucus. This was too viscous to perform fluid analysis. Cytology was bland but only a small amount of fluid was obtained. There were no solid mural nodules. The exam also suggested changes of chronic pancreatitis however there were no obstructing lesions. I recommended distal pancreatectomy, and this was performed 05/01/21. Pathology showed: A(1). BODY AND TAIL OF PANCREAS, SUBTOTAL PANCREATECTOMY: -Intraductal papillary mucinous neoplasm (IPMN), with multifocal high-grade dysplasia -Tumor size: 7.2 cm in greatest dimension -Resection margin free of high-grade dysplasia (low-grade mucinous epithelium present at the resection margin) -No evidence of invasive malignancy -Nineteen lymph nodes with no evidence of metastatic carcinoma (0/19) MRI was performed prior to this visit. This showed: IMPRESSION: 1. Stable surgical changes of distal pancreatectomy. No suspicious findings in the pancreatectomy bed. 2. Interval hemorrhage into and enlargement of an exophytic hemorrhagic/proteinaceous cyst arising from the lower pole of the left kidney. 3. Continued hepatic and splenic iron deposition. 4. Stable anterior right abdominal wall hernia containing loops of small bowel. Currently, doing well. Denies abdominal pain. Has history of bowel resection (about 10 feet left ofsmall bowel), having at least 5 bowel movements a day. Has right epistaxis which he went to ED and got anterior nasal packing. Weight has been stable, 70-75 lbs for the past 3 years. Eating protein bar during dialysis. Doing regular hemodialysis. OBJECTIVE: VS: There were no vitals taken for this visit. GEN: A&Ox3, NAD, comfortable REVIEW OF LABORATORY, PATHOLOGY AND IMAGING RESULTS: IMPRESSION: Moisés Whelan is a 62 year old male with history of distal pancreatectomy for main duct IPMN in the pancreatic tail. Pathology confirmed high-grade dysplasia without malignancy. Margins negative for HGD. Now seen for annual post-op MRI surveillance. This is stable. It appears that this was performed with contrast despite his history of dialysis. Has chronic diarrhea which has been stable for the past 10 years per patient which could be from post bowel resections, Crohn's disease, or also could be from distal pancreatectomy. He has not been checked for fecal elastase which we will obtain this. In the setting of diarrhea/loose stool, could also has falsely low result as well. RECOMMENDATIONS: - Check fecal elastase - Repeat MRI abdomen without contrast in 1 year (ESRD). It was a pleasure to participate in the care of this patient; please contact us with any further questions. A total of 40 minutes was spent on the day of the visit, >50% of which was counseling regarding the above delineated issues. The remainder was review of records and imaging as well as documentation and coordination of care. Patient is discussed and seen with Dr. Ruvalcaba. Jc Padilla MD Gastroenterology/Hepatology Fellow Physician Attestation I, Chapin Ruvalcaba MD, saw this patient and agree with the findings and plan of care as documented in the note. Items personally reviewed/procedural attestation: imaging and agree with the interpretation documented in the note. Chapin Ruvalcaba MD OR MANAGER documented in this encounter Nursing Notes * Michelle Howe - 02/01/2023 9:20 AM CST Is the patient currently in the state of [place]? YES Visit mode:VIDEO If the visit is dropped, the patient can be reconnected by: VIDEO VISIT: Text to cell phone: Telephone Information: Will anyone else be joining the visit? NO (If patient encounters technical issues they should call [phone] :[phone]) How would you like to obtain your AVS? MyChart Are changes needed to the allergy or medication list? Pt stated no changes to allergies and medications flagged for removal are Amlopidine and Carvedilol Reason for visit: RECHECK Michelle Howe RESAW CARRIAGE OPERATOR OR MANAGER documented in this encounter Plan of Treatment Upcoming Encounters Date Type Department Care Team (Late st Contact Info) Description 04/01/2023 1:15 PM SENIOR MANAGER Office Visit [facility] [address] [place] [phone] Yolanda Wilkerson, SUZETTEC [address] [place] [address] 248205 07/13/2023 8:00 AM CDT Virtual Visit [facility] [address] 4th [place] [phone] Deuce Majano PA-C [address] [place] [address] [phone] documented as of this encounter Results * Elastase Fecal (03/10/2023 10:30 AM SENIOR MANAGER) Elastase Fecal 291.0 >199.9 ug/g 03/12/2023 9:36 AM SENIOR MANAGER [facility]/PROT/ENDO Stool RECTAL CONTENTS / Unknown Non-blood Collection / Unknown 03/10/2023 10:30 AM SENIOR MANAGER 03/10/2023 11:33 AM SENIOR MANAGER Chapin Ruvalcaba MD LAB - STOOLS HAIR [facility] CORE/PROT/ENDO [facility] Specialty Core/Prot/Endo [address] [facility] [address] Building, Room 3-[address] [phone] documented in this encounter Visit Diagnoses Diagnosis IPMN (intraductal papillary mucinous neoplasm)- Primary Neoplasm of unspecified nature of digestive system documented in this encounter Care Teams Railcar Mechanic Relationship Specialty Start Date End Date Maximino Arredondo MD [address] [place] [address] PCP - General Family Medicine 04/02/21 Chapin Khan MD [address] [place] [address] [phone] Urology 05/10/20 Danya Barraza, [facility] [address] [place] [address] 140715 Pharmacist Pharmacist Malted Milk Masher 12/25/20 Jeanette French, FATOUMATA [address] [place] [address] [phone] Specialty Fruit Raiser Gastroenterology 12/30/21 Tammy Greenberg MD [address] [place] [address] 470945 Cardiovascular Disease 02/24/22 Genaro Palacios MD [address] [facility] [address] [place], [place] 238225 Assigned Heart and Vascular Provider 03/28/22 Claude Rucker MD [address] [place] [address] 067305 Assigned Surgical Provider 04/11/22 Delroy Gore APRN TRANSITIONAL LIVING SPECIALIST [address] [place] [address] 513995 Assigned Nephrology Provider 04/25/22 Danya Barraza, [facility] [address] [place] [address] [phone] Assigned MTM Pharmacist 12/05/22 Deuce Majano PA-C [address] [place] [address] Assigned Gastroenterology Provider 01/23/23 02/05/23 documented as of this encounter
--- OUTSIDE RECORDS SUMMARY | 2023-03-14 02:36 | XMS_ITS | Encounter Summary ---
Author Name Unknown Organization [facility] Address [address] [place] [address] Care Team Providers Care Immigration Case Manager Name Role Phone Chapin Khan MD Unavailable [phone] Danya Barraza [facility] Unavailable [phone] Maximino Arredondo MD Primary Care Provider [phone] Jeanette French RN Unavailable [phone] Tammy Fink MD Unavailable [phone] Genaro Palacios MD Unavailable [phone] Claude Rucker MD Unavailable [phone] Delroy Gore APRN CHILDBIRTH AND INFANT CARE TEACHER Unavailable [phone] Danya Barraza [facility] Unavailable [phone] Reason for Referral * CV Testing (Routine) [...] ZZHC STATISTIC IV PUSH SINGLE INITIAL SUBSTANCE MN ECHO MYOCARD BX MN INJECTION, PERFLUTREN LIPID MICROSPHERES, PER ML MN TTE W/DOPPLER, COMPLETE MN IV PUSH SINGLE, INITIAL SUBSTANCE MN TTE W/DOPPLER, COMPLETE MN TTE W/DOPPLER, COMPLETE HC US GUIDE FOR PERICARDIOCENTESIS HC ECHO MYOCARD BX HC IV PUSH SINGLE, INITIAL SUBSTANCE HC STATISTIC IV PUSH SINGLE INITIAL SUBSTANCE HC ECHO COMPLETE W DOPPLER W CONTRAST HC ECHO COMPLETE W DOPPLER W/O CONTRAST Tammy Fink MD [address] [place] [address] Cardiac Services [address] [place] [phone] Referral ID Status Reason Start Date Expiration Date Visits Re quested Visits Authorized [id number] Closed 12/22/2022 12/22/2023 1 1 PRECIPITATOR OPERATOR HELPER Encounter Details Date Type Department Care Team (Late st Contact Info) Description 12/22/2022 Orders Only [facility] [address] [address] Tammy Fink MD [address] [place] [address] CAD (coronary artery disease) (Primary Dx) Social History Tobacco Use Types [...] st Contact Info) Description 04/01/2023 1:15 PM TOP PRECIPITATOR OPERATOR HELPER Office Visit [address] [phone] Yolanda Wilkerson PA-C [address] [place] [address] 725575 07/13/2023 8:00 AM CDT Virtual Visit [facility] [address] 4th [place] [phone] Deuce Majano PA-C [address] [place] [address] [phone] documented as of this encounter Results * ECHO COMPLETE (02/09/2023 8:08 AM TOP PRECIPITATOR OPERATOR HELPER) LVEF 55-60% CARDIOLOGY RESULTS Anatomical Region Laterality Modality Echocardiography 02/09/2023 6:54 AM TOP PRECIPITATOR OPERATOR HELPER Narrative 02/09/2023 9:02 AM TOP PRECIPITATOR OPERATOR HELPER [id number]^ALEKS^K^P [facility] [address] [place] [address] Name: BECKY GALLOWAY : 1960 Study Date: 02/09/2023 06:54 AM Age: 62 yrs Gender: Male Patient Location: [facility] Reason For Study: CAD [...] Procedure Note Lorenzo Hussein MD - 02/09/2023 [id number]^ALEKS^Tammy^Trevor [facility] [address] [place] [address] Name: BECKY GALLOWAY : 1960 Study Date: 02/09/2023 06:54 AM Age: 62 yrs Gender: Male Patient Location: [facility] Reason For Study: CAD [...] encounter Visit Diagnoses Diagnosis CAD (coronary artery disease)- Primary Coronary atherosclerosis of unspecified type of vessel, [place] or graft CAD (coronary artery disease) Coronary atherosclerosis of unspecified type of vessel, [place] or graft documented in this encounter Care Teams Immigration Case Manager Relationship Specialty Start Date End Date [place] [address] PCP - General Family Medicine 04/02/21 Chapin Khan MD [address] [place] [address] 857015 Urology 05/10/20 Danya Barraza, [facility] [address] [place] [address] Pharmacist Pharmacist Lottery Clerk 12/25/20 Jeanette French, FATOUMATA [address] [place] [address] [phone] Specialty Chief Solution Architect Gastroenterology 12/30/21 Tammy Fink MD [address] [facility] [address] [place], [place] 278[address] Cardiovascular Disease 02/24/22 Genaro Palacios MD [address] [facility] [address] [place], [place] 9445[address] Assigned Heart and Vascular Provider 03/28/22 Claude Rucker MD [address] [place], [place] 254855 Assigned Surgical Provider 04/11/22 Delroy Gore APRN CHILDBIRTH AND INFANT CARE TEACHER [address] [place] [address] Assigned Nephrology Provider 04/25/22 Danya Barraza [facility] [address] [place] [address] Assigned MTM Pharmacist 12/05/22 documented as of this encounter
--- OUTSIDE RECORDS SUMMARY | 2023-03-14 02:36 | XMS_ITS | Encounter Summary ---
Author Name Unknown Organization [facility] Address [address] [place] [address]. [place] [address] Care Team Providers Care Oceanologist Name Role Phone Chapin Khan MD Unavailable [phone] Danya Barraza [facility] Unavailable [phone] Maximino Arredondo MD Primary Care Provider [phone] Jeanette French RN Unavailable [phone] Tammy Greenberg MD Unavailable [phone] Genaro Palcaios MD Unavailable [phone] Claude Rucker MD Unavailable [phone] Delroy Gore APRN BIOMASS POWER PLANT SUPERINTENDENT Unavailable [phone] Danya Barraza [facility] Unavailable [phone] Deuce Majano PA-C Unavailable [phone] Chapin Ruvalcaba MD Unavailable [phone] Reason for Visit * Reason Onset Date Comments Symptom Check 12/31/2022 Encounter Details Date Type Department Care Team (Late st Contact Info) Description 12/31/2022 [facility] Medical Advice [facility] Clinic [address] 4th [place] [address] Jeanette French, RN [address] [place] [address] Symptom Check Social History Tobacco Use Types Packs/Day Years [...] st Contact Info) Description 04/01/2023 1:15 PM KENNEL MANAGER Office Visit [address] [address] Yolanda Wilkerson PA-C [address] [place] [address] 115535 07/13/2023 8:00 AM CDT Virtual Visit [facility] [address] [place] [phone] Deuce Majano PA-C [address] [place] [address] [phone] documented as of this encounter Visit Diagnoses Not on filedocumented in this encounter Additional Health Concerns Infection Onset Date Last Indicated Resolved Time Rule Out C-difficile 03/10/2023 03/10/2023 024 5:57 PM KENNEL MANAGER documented as of this encounter Care Teams Oceanologist Relationship Specialty Start Date End Date Maximino Arredondo MD [address] [facility] [address] [place] [phone] PCP - General Family Medicine 04/02/21 Chapin Khan MD [address] [place] [address] [phone] Urology 05/10/20 Danya Barraza [facility] [address] [place] [address] 969165 Pharmacist Pharmacist [employer] Technical Lead Senior Developer 12/25/20 Jeanette French, FATOUMATA [address] [place] [address] [phone] Specialty Care Center Manager Gastroenterology 12/30/21 Tammy Greenberg MD [address] [place] [address] [address] [place], [place] 349855 Cardiovascular Disease 02/24/22 Genaro Palacios MD [address] [facility] [address] [place] [address] Assigned Heart and Vascular Provider 03/28/22 Claude Rucker MD [address] [place] [address] [phone] Assigned Surgical Provider 04/11/22 Delroy Gore APRN BIOMASS POWER PLANT SUPERINTENDENT [address] [place] [address] 716525 Assigned Nephrology Provider 04/25/22 Danya Barraza [facility] [address] [place] [address] Assigned MTM Pharmacist 12/05/22 Deuce Majano PA-C [address] [place], [place] 926175 Assigned Gastroenterology Provider 01/23/23 02/05/23 Chapin Ruvalcaba MD [address] [facility] [address] [place], [place] 314[address] Assigned Gastroenterology Provider 02/06/23 documented as of this encounter
--- OUTSIDE RECORDS SUMMARY | 2023-03-14 02:36 | XMS_ITS | Encounter Summary ---
Author Name Unknown Organization [place] Address [address] [place] [address]. [place] [address] Care Team Providers Care Head Silverman Name Role Phone Chapin Khan MD Unavailable [phone] Dnaya Barraza [facility] Unavailable Maximino Arredondo MD Primary Care Provider [phone] Jeanette French RN Unavailable [phone] Tammy Greenberg MD Unavailable [phone] Genaro Palacios MD Unavailable [phone] Claude Rucker MD Unavailable [phone] Delroy Gore APRN ECHOCARDIOGRAPH TECHNICIAN Unavailable [phone] Danya Barraza [facility] Unavailable [phone] Reason for Visit * Reason Onset Date Comments Appointment 01/13/2023 GI follow-up ord er Encounter Details Date Type Department Care Team (Late st Contact Info) Description 01/13/2023 Telephone [facility] [place] [id number] [facility] 4th [place] [address] Deuce Majano PA-C [address] [place] [address] Appointment (GI follow-up order) Social History Tobacco Use Types Packs/Day Years [...] encounter Miscellaneous Notes * Telephone Encounter - Ariane Figueroa - 01/13/2023 1:18 PM CST Spoke with patient and scheduled the 6 mo follow-up order per Deuce Majano. They are scheduled for a video visit on 07/13/23. ITAL SUPERINTENDENT documented in this encounter Plan of Treatment Upcoming Encounters Date Type Department Care Team (Late st Contact Info) Description 04/01/2023 1:15 PM HOSPITAL SUPERINTENDENT Office Visit [address] [phone] Yolanda Wilkerson PA-C [address] [place] [address] 07/13/2023 8:00 AM CDT Virtual Visit [facility] [address] [place] [phone] Deuce Majano PA-C [address] [place] [address] documented as of this encounter Visit Diagnoses Not on filedocumented in this encounter Care Teams Head Silverman Relationship Specialty Start Date End Date Maximino Arredondo MD [address] [place], [place] [address] [address] PCP - General Family Medicine 04/02/21 Chapin Khan MD [address] [place] [address] [phone] Urology 05/10/20 Danya Barraza, [facility] [address] [place] [address] [phone] Pharmacist Pharmacist Import And Export Clerk 12/25/20 Jeanette French, FATOUMATA [address] [place] [address] 112115 Specialty Ux Design Manager Gastroenterology 12/30/21 Tammy Greenberg MD [address] [place] [address] [phone] Cardiovascular Disease 02/24/22 Genaro Palacios MD [address] [facility] [address] [place], [place] 721[address] Assigned Heart and Vascular Provider 03/28/22 Claude Rucker MD [address] [place] [address] Assigned Surgical Provider 04/11/22 Delroy Gore APRN ECHOCARDIOGRAPH TECHNICIAN [address] [place] [address] Assigned Nephrology Provider 04/25/22 Danya Barraza [address] [place] [address] Assigned MTM Pharmacist 12/05/22 documented as of this encounter
--- OUTSIDE RECORDS SUMMARY | 2023-03-14 02:36 | XMS_ITS | Encounter Summary ---
Author Name Unknown Organization [place] Address [address] [place] [address]. [place] [address] Care Team Providers Care Clinical Fellow Name Role Phone Chapin Khan MD Unavailable [phone] Danya Barraza [facility] Unavailable [phone] Maximino Arredondo MD Primary Care Provider [phone] Jeanette French RN Unavailable [phone] Tammy Greenberg MD Unavailable [phone] Genaro Palacios MD Unavailable [phone] Claude Rucker MD Unavailable [phone] Delroy Gore APRN COMMUNITY DEVELOPMENT MANAGER Unavailable [phone] Danya Barraza [facility] Unavailable [phone] Deuce Majano PA-C Unavailable [phone] Chapin Ruvalcaba MD Unavailable [phone] Encounter Details Date Type Department Care Team (Late st Contact Info) Description 02/01/2023 [facility] [address] [place] [address] Roslyn Foley, RN Social History [...] st Contact Info) Description 04/01/2023 1:15 PM ADMINISTRATIVE UNDERWRITER Office Visit [address] [phone] Yolanda Wilkerson PA-C [address] [place] [address] [phone] 07/13/2023 8:00 AM CDT Virtual Visit [facility] [address] [phone] Deuce Majano PA-C [address] [place] [address] [phone] documented as of this encounter Visit Diagnoses Not on filedocumented in this encounter Additional Health Concerns Infection Onset Date Last Indicated Resolved Time Rule Out C-difficile 03/10/2023 03/10/2023 024 5:57 PM ADMINISTRATIVE UNDERWRITER documented as of this encounter Care Teams Clinical Fellow Relationship Specialty Start Date End Date Maximino Arredondo MD [address] [place] [address] PCP - General Family Medicine 04/02/21 Chapin Khan MD [address] [place] [address] Urology 05/10/20 [facility] [address] [place] [phone] Pharmacist Pharmacist Executive Legal Secretary 12/25/20 Jeanette French, FATOUMATA [address] [place] [address] [phone] Specialty Hoeing Row Boss Gastroenterology 12/30/21 Tammy Greenberg MD [address] [place] [address] [phone] Cardiovascular Disease 02/24/22 Genaro Palacios MD [address] [facility] [address] [place] [address] [phone] Assigned Heart and Vascular Provider 03/28/22 Claude Rucker MD [address] [place] [address] [phone] Assigned Surgical Provider 04/11/22 Delroy Gore APRN COMMUNITY DEVELOPMENT MANAGER [address] [place] [address] [phone] Assigned Nephrology Provider 04/25/22 Danya Barraza, [facility] [address] [place] [address] [phone] Assigned MTM Pharmacist 12/05/22 Deuce Majano PA-C [address] [place], [place] [phone] Assigned Gastroenterology Provider 01/23/23 02/05/23 Chapin Ruvalcaba MD [address] [facility] [address] [place], [place] [address] Assigned Gastroenterology Provider 02/06/23 documented as of this encounter
--- OUTSIDE RECORDS SUMMARY | 2023-03-14 02:36 | XMS_ITS | Encounter Summary ---
Author Name Unknown Organization [place] Address [facility] [place] [address] Care Team Providers Care Research Chemist Name Role Phone Chapin Khan MD Unavailable [phone] Danya Barraza [facility] Unavailable Maximino Arredondo MD Primary Care Provider Jeanette French RN Unavailable [phone] Tammy Greenberg MD Unavailable [phone] Genaro Palacios MD Unavailable [phone] Claude Rucker MD Unavailable [phone] Delroy Gore APRN SPREADER OPERATOR AUTOMATIC Unavailable [phone] Danya Barraza [facility] Unavailable Reason for Visit * Reason Onset Date Comments Appointment 12/09/2022 12/14/22 at 10:[address] Ruvalcaba (Return Virtual Visit) Encounter Details Date Type Department Care Team (Latest Contact Info) Description 12/09/2022 Documentation Only [facility] [address] 4th [place] [address] Lamar Montiel Appointment (12/14/22 at 10:40 AM with .. Social History Tobacco Use Types Packs/Day Years [...] AM CDT documented as of this encounter Progress Notes * Lamar Montiel - 12/09/2022 2:44 PM CDTSummary: Appointment Confirmation Called PT and confirmed Appointment. Called to remind patient of their upcoming appointment with our GI clinic, on 12/14/22 at 10:[address] Grzegorz Ruvalcaba. This appointment is scheduled as a video visit. You will receive a call approximately 30 minutes prior to check you in, you must be in [place] for this visit., if your appointment is virtual (video or telephone) you need to be in [place] for the visit. To reschedule or cancel patient to call [phone]. [place] documented in this encounter Plan of Treatment Upcoming Encounters Date Type Department Care Team (Late st Contact Info) Description 04/01/2023 1:15 PM MICROPHONE OPERATOR Office Visit [address] [phone] Yolanda Wilkerson, PAAnhC [address] [place] [address] 07/13/2023 8:00 AM CDT Virtual Visit [facility] [place] [address]09 [facility] 4th [place] [address] Deuce Majano PA-C [address] [place] [address] [phone] documented as of this encounter Visit Diagnoses Not on filedocumented in this encounter Care Teams Research Chemist Relationship Specialty Start Date End Date Maximino Arredondo MD [address] [place] [phone] PCP - General Family Medicine 04/02/21 Chapin Khan MD [address] [place] [address] [phone] Urology 05/10/20 Danya Barraza, [facility] [address] [place] [address] [phone] Pharmacist Pharmacist Credit Professional 12/25/20 Jeanette French, RN [address] [place] [address] [phone] Specialty Mat Puncher Gastroenterology 12/30/21 Tammy Greenberg MD [address] [place] [address] [address] [place], [place] 837715 Cardiovascular Disease 02/24/22 Genaro Palacios MD [address] [facility] [address] [place] 6[address] Assigned Heart and Vascular Provider 03/28/22 Claude Rucker MD [address] [place] [address] 195475 Assigned Surgical Provider 04/11/22 Delroy Gore APRN CNP 9 [place] [address] Assigned Nephrology Provider 04/25/22 Danya Barraza RPH [address] [place] [address] Assigned MTM Pharmacist 12/05/22 documented as of this encounter
--- OUTSIDE RECORDS SUMMARY | 2023-03-14 02:36 | XMS_ITS | Encounter Summary ---
Author Name Unknown Organization [place] Address [address] [place] [address]. [place] [address] Care Team Providers Care Fpga Design Engineer Name Role Phone Chapin Khan MD Unavailable [phone] Danya Barraza [facility] Unavailable [phone] Maximino Arredondo MD Primary Care Provider [phone] Jeanette French RN Unavailable [phone] Tammy Greenberg MD Unavailable [phone] Genaro Palacios MD Unavailable [phone] Claude Rucker MD Unavailable [phone] Delroy Gore APRN ASSOCIATE FINANCIAL REPRESENTATIVE Unavailable [phone] Danya Barraza [facility] Unavailable [phone] Deuce Majano PA-C Unavailable [phone] Chapin Ruvalcaba MD Unavailable [phone] Encounter Details Date Type Department Care Team (Late st Contact Info) Description 12/17/2022 Orders Only [facility] [address] [place] [address] Outside, Provider Social History Tobacco Use Types Packs/Day Years [...] st Contact Info) Description 04/01/2023 1:15 PM PANTS BUSHELER Office Visit [address] [phone] Yolanda Wilkerson PA-C [address] [place] [address] [phone] 07/13/2023 8:00 AM CDT Virtual Visit [facility] [address] [phone] Deuce Majano PA-C [address] [place] [address] [phone] documented as of this encounter Procedures Procedure Name Priority Date/Time Associated Diagnosis Comments HLA RESULT REPORT 12/17/2022 12:31 PM CDT HLA RESULT REPORT 12/17/2022 12:31 PM CDT documented in this encounter Results * HLA RESULT REPORT (12/17/2022 12:31 PM CDT) Provider Outside LAB - IMMUNOLOGY ORD ERABLES * HLA RESULT REPORT (12/17/2022 12:31 PM CDT) Provider Outside LAB - IMMUNOLOGY ORD ERABLES documented in this encounter Visit Diagnoses Not on filedocumented in this encounter Additional Health Concerns Infection Onset Date Last Indicated Resolved Time Rule Out C-difficile 03/10/2023 03/10/2023 024 5:57 PM PANTS BUSHELER documented as of this encounter Care Teams Fpga Design Engineer Relationship Specialty Start Date End Date Maximino Arredondo MD [address] [place] [phone] PCP - General Family Medicine 04/02/21 Chapin Khan MD [address] [place] [address] [phone] Urology 05/10/20 Danya Barraza, [facility] [address] [place] [address] [phone] Pharmacist Pharmacist Crime Scene Specialist 12/25/20 Jeanette French, RN [address] [place] [address] [phone] Specialty Chairman President And Chief Executive Officer Gastroenterology 12/30/21 Tammy Greenberg MD [address] [place] [address] [address] [place], [place] 439[address] Cardiovascular Disease 02/24/22 Genaro Palacios MD [address] [facility] [address] [place], [place] [address] Assigned Heart and Vascular Provider 03/28/22 Claude Rucker MD [address] [place] [address] [phone] Assigned Surgical Provider 04/11/22 Delroy Gore APRN [facility] [address] [place] [address] Assigned Nephrology Provider 04/25/22 Danya Barraza [facility] [address] [place] [address] Assigned MTM Pharmacist 12/05/22 Deuce Majano PA-C [address] [place] [address] Assigned Gastroenterology Provider 01/23/23 02/05/23 Chapin Ruvalcaba MD [address] [facility] [address] [place] [address] Assigned Gastroenterology Provider 02/06/23 documented as of this encounter
--- OUTSIDE RECORDS SUMMARY | 2023-03-14 02:36 | XMS_ITS | Encounter Summary ---
Author Name Unknown Organization [facility] Address [address] [place] [address]. [place] [address] Care Team Providers Care Ticket Dispatcher Name Role Phone Chapin Khan MD Unavailable [phone] Danya Barraza [facility] Unavailable [phone] Maximino Arredondo MD Primary Care Provider [phone] Jeanette French RN Unavailable [phone] Tammy Greenberg MD Unavailable [phone] Genaro Palacios MD Unavailable [phone] Claude Rucker MD Unavailable [phone] Delroy Gore APRN BATTERY HAND Unavailable [phone] Danya Barraza [facility] Unavailable [phone] Reason for Visit * Reason Comments Video Visit Recheck IBD Encounter Details Date Type Department Care Team (Latest Contact Info) Description 01/12/2023 8:00 AM TABLE GAMES DEALER Virtual Visit [facility] [address] [place] [address] Romi Fairbanks MD [address] [address] Deuce Majano, PA-C [address] [place] [address] Crohn's disease of both small and large intestine with other complication (H) (Primary Dx) Social History Tobacco Use Types [...] - Inhaled Oxygen Concentration - - Weight 73 kg (160 lb 15 oz) 01/12/2023 7:[address] Height 180.3 cm (5' 11) 01/12/2023 7:36 AM TABLE GAMES DEALER Body Mass Index 22.45 01/12/2023 7:36 AM TABLE GAMES DEALER documented in this encounter Patient Instructions * Patient Instructions* Deuce Majano PA-C - 01/12/2023 8:00 AM TABLE GAMES DEALER It was a pleasure taking care of you today. I've included a brief summary of our discussion and care plan from today's visit below. Please review this information with your primary care provider. My recommendations are summarized as follows: -- Continue stelara every 4 weeks -- Labs every 3 months -- Next endoscopic assessment: MRE? Will confirm once I hear back from Dr. Fairbanks. -- Patient with IBD we recommend supplementation vitamin D 1000 units daily and calcium 500 mg twice daily. -- Vaccines/immunizations to be updated: Flu, tetanus, pneumonia -- No NSAIDs (ibuprofen, or anything containing ibuprofen) For additional resources about inflammatory bowel disease visit http://www.crohnscolitisfoundation.org/ To learn more about Diet and Nutrition in the setting of IBD, check out some of these resources: https://www.crohnscolitisfoundation.org/tjgd-god-negvttcfa/bsrx-biwzye-t-eat https://www.nimbal.org/ https://ntforibd.org/ Return to GI Clinic in 6 months to review your progress. How do I schedule labs, imaging studies, or procedures that were ordered in clinic today? Labs: To schedule lab appointment at the [facility], use my chart or call [phone]. If you have a [facility] lab closer to home where you are regularly seen you can give them a call. Procedures: If a colonoscopy, upper endoscopy, breath test, esophageal manometry, or pH impedence was ordered today, our endoscopy team will call you to schedule this. If you have not heard from our endoscopy team within a week, please call [phone] to schedule. Imaging Studies: If you were scheduled for a CT scan, X-ray, MRI, ultrasound, HIDA scan or other imaging study, please call [phone] to have this scheduled. Referral: If a referral to another specialty was ordered, expect a phone call or follow instructions above. If you have not heard from anyone regarding your referral in a week, please call our clinicto check the status. Who do I call with any questions after my visit? Please be in touch if there are any further questions that arise following today's visit. There aremultiple ways to contact your gastroenterology care team. During business hours, you may reach a Gastroenterology nurse at [phone] To schedule or reschedule an appointment, please call [phone]. You can always send a secure message through [employer]. [employer] messages are answered by your nurse or doctor typically within 24 hours. Please allow extra time on weekends and holidays. For urgent/emergent questions after business hours, you may reach the on-call GI Fellow by contacting the [facility] bleach range operator at . How will I get the results of any tests ordered? You will receive all of your results. If you have signed up for Admittort, any tests ordered at your visit will be available to you after your physician reviews them. Typically this takes 1-2 weeks. Ifthere are urgent results that require a change in your care plan, your physician or nurse will callyou to discuss the next steps. What is [employer]? [employer] is a secure way for you to access all of your healthcare records from the [facility]. It is a web based computer program, so you can sign on to it from any location. It also allows you to send secure messages to your care team. I recommend signing up for [employer] access if you have not already done so and are comfortable with using a computer. Sincerely, Deuce Majano PA-C [facility] Division of Gastroenterology E GAMES DEALER documented in this encounter Progress Notes * Deuce Majano PA-C - 01/12/2023 8:00 AM CST Moisés Whelan is a 62 year old male who is being evaluated via a billable video visit. Virtual Visit Details Type of service: Video Visit Originating Location (pt. Location): Home Distant Location (provider location): Off-site Platform used for Video Visit: [facility] follow up PATIENT: Moisés Whelan Date of 1960 Tel: There are no phone numbers on file. PCP: Brett Kan HPI: Mr. Whelan is a 60 year old male here to establish care for Crohn's disease. In 1974, underwent an emergency appendectomy and was dx with CD at that time, underwent R blake. Hadmultiple surgeries after then, 75, 77, 77, including LOAs and a cholecystectomy. Reports having 9 feet of bowel left, in total. Did well until 05/2005, at which time he had intermittent flares and underwent resection with a colostomy bag that was reversed in 12/2005. At that time, he required TPN for weight loss. Had a peristomal hernia that was not corrected in an effort to avoid further bowel loss. Previously saw Dr. Bhat, . Currently, has 4-5 BMs per day, loose. No blood. Occasional urgency based on diet. Weight has been stable around 75-80 kg. Last cscope was in 11/2019 that showed ulcers in the TI and at the anastomosis. Does have ESRD in the setting of JESUS from afib and aortic dissection in May 2020. Skin cancer (BCC) was removed on forearm 2 years. Quit smoking in November 2019. Smoked about 1/2-3/4 ppd x 50 years. Noteworthy diet history- well balanced HBI General well-being 0 = very well Abdominal pain 0 = none Number of liquid stools per day 4-5 Abdominal mass cannot assess virtually Current Complications arthralgias (knees) Constitutional symptoms: Fever NO Weight loss NO Other GI symptoms present REFLUX SYMPTOMS - acid taste in mouth Takes omeprazole 20 mg before breakfast [place] Classification AGE AT DIAGNOSIS: A1 below 16 y CURRENT DISEASE LOCATION: jejunum L4 upper GI: YES possibly, given chronic gastritis seen on EGD in 11/2019 DISEASE BEHAVIOR (since disease onset): B2: stricturing Perianal disease: NO Total number of IBD surgeries (except perianal): multiple Remaining bowel: 9 feet, per patient Current IBD Medications: none Past IBD Medications: Sulfasalazine in the 1970s Remicade around early 1999s. Was On this for at least 2 years. Stopped due to remission. Azathioprine ~2013 Interval history, 12/31/20 (virtual) Continues to feel well. Unchanged HBI from above. Icscope in August showed active disease (below). Cholestyramine was not very helpful for loose stools. Smokes up to 2 cigs per day. Has tried Chantix and gum in the past. Will get OTC patches. Met with Danya Barraza, Pharm D on 12/25 with recs for the following -- COVID booster -- pneumovax-23 Received 01/2020 per [facility]. -- hepatitis B series -- Shingrix -- Men ACWY/B -- Hib Interval history, 12/2021 (virtual) Underwent open subtotal pancreatectomy for main duct IPMN by Dr. Morales on 04/2021. 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 Continues on Stelara; last injection was last Wednesday. Every 8 weeks. Smoking; down to a 1/4 pack per day. Using patches. Trying to quit. HBI General well-being 0 = very well Abdominal pain 0 = none Number of liquid stools per day 4-5 Abdominal mass cannot assess virtually Current Complications arthralgias resolved Interval history, 06/2022 (virtual) Continues on Stelara. Hgb 9.6 on 07/06. Does report more energy since transfusion. Continues to try to quit smoking. Smoking 1/4 ppd. HBI General well-being 0 = very well Abdominal pain 0 = none Number of liquid stools per day 5 in total (vary between soft and loose) Abdominal mass cannot assess virtually Current Complications arthralgias in the setting of dialysis (swelling in ankles from fluid overload) Interval hx 12/2022 Recent hosptialization due to SOB, found to have hypoxic respiratory failure and flash pulmonary edema. He was admitted to the ICU for hemodialysis, which allowed for resolution of respiratory symptoms. Currently having 5 stools per day, consistency ranges from oatmeal to liquid. No blood in the stool. No urgency or accidents. No abdominal pain, nausea or vomiting. No joint pain or skin concerns. He continues with stelara q4 weeks with good compliance, (has been on q4 dosing since Spring 2022). Past Medical History: Diagnosis Date Aortic dissection [...] Surgeon: Luke Carvalho MD; Location: HE[facility] PRIVATE BRANCH EXCHANGE INSTALLER ESOPHAGOSCOPY, GASTROSCOPY, DUODENOSCOPY (EGD), COMBINED N/A 09/03/2020 [...] OR VASCULAR SURGERY dialysis access- left upper Social History Tobacco Use Smoking status: Every Day Packs/day: 0.25 Years: 50.00 Additional pack years: 0.00 Total pack years: 12.50 Types: Cigarettes Last attempt to quit: 12/04/2019 Years since quittin.1 Smokeless tobacco: Never Substance Use Topics Alcohol use: Yes Comment: rare Family History Problem Relation Age of Onset Breast Cancer Mother Coronary Artery Disease Father Hypertension Brother Anesthesia Reaction No family hx of Thrombosis No family hx of Allergies Allergen Reactions Lisinopril Anaphylaxis and Other (See Comments) Shortness of breath Outpatient Encounter Medications as of 01/12/2023 Medication Sig Dispense Refill amLODIPine (NORVASC) 10 MG tablet Take 10 mg by mouth daily calcium acetate (CALPHRON) 667 MG TABS tablet Take 2,668 mg by mouth 3 times daily carvedilol (COREG) 12.5 MG tablet Take 12.5 mg by mouth 2 times daily folic acid (FOLVITE) 1 MG [...] subcutaneous every 4 weeks. 1 mL 5 Facility-Administered Encounter Medications as of 01/12/2023 Medication Dose Route Frequency Provider Last Rate Last Admin lidocaine 1% with EPINEPHrine 1:100,000 injection 3 mL 3 mL Intradermal Once Claude Rucker MD NSAID No Review of Systems Complete 10 System ROS performed. All are negative except as documented below, in the HPI, or in patient questionnaire from today's visit. 1) Constitutional: No fevers, chills, night sweats or malaise, weight loss or gain 2) Skin: No rash 3) Pulmonary: No wheeze, SOB, cough, sputum or hemoptysis 4) Cardiovascular: No Chest pain or palpitations 5) Genitourinary: No blood in urine or dysuria 6) Endocrine: No increased sweating, hunger, thirst or thyroid problems 7) Hematologic: No bruising and easy bleeding 8) Musculoskeletal: no new pain in joints or limitation in ROM 9) Neurologic: No dizziness, paresthesias or weakness or falls 10) Psychiatric: not depressed/anxious, no sleep problems PHYSICAL EXAM General appearance Healthy appearing adult, in no acute distress Eyes Sclera anicteric Pupils round and reactive to light Ears, nose, mouth and throat No obvious external lesions of ears and nose Hearing intact Neck Symmetric No obvious external lesions Respiratory Normal respiration, no use of accessory muscles MSK Gait normal Skin No rashes or jaundice Psychiatric Oriented to person, place and time Appropriate mood and affect. DATA: Reviewed in detail past documentation, medications and prior workup available in electronic health records or through outside records. PERTINENT STUDIES: Most recent CBC: WBC Date Value Ref Range Status 07/09/2020 7.2 4.0 - 11.0 10e9/L Final WBC Count Date Value Ref Range Status 12/08/2022 4.2 4.0 - 11.0 10e3/uL Final Comment: This is a corrected result. Previous result was 4.0 10e3/uL on 12/08/2022 at 8:51 AM CDT ] Hemoglobin Date Value Ref Range Status 12/08/2022 10.5 (L) 13.3 - 17.7 g/dL Final 07/09/2020 10.6 (L) 13.3 - 17.7 g/dL Final ] Platelet Count Date Value Ref Range Status 12/08/2022 63 (L) 150 - 450 10e3/uL Final Comment: This is a corrected result. Previous result was 66 10e3/uL on 12/08/2022 at 8:51 AM CDT 07/09/2020 224 150 - 450 10e9/L Final Most recent coag: INR Date Value Ref Range Status 05/01/2021 1.30 (H) 0.85 - 1.15 Final 07/09/2020 1.33 (H) 0.86 - 1.14 Final Most recent hepatic panel: AST Date Value Ref Range Status 12/08/2022 22 0 - 45 U/L Final Comment: Reference intervals for this test were updated on 07/27/2022 to more accurately reflect our healthy population. There may be differences in the flagging of prior results with similar values performed with this method. Interpretation of those prior results can be made in the context of the updated reference intervals. 05/09/2020 16 0 - 45 U/L Final ALT Date Value Ref Range Status 12/08/2022 14 0 - 70 U/L Final Comment: Reference intervals for this test were updated on 07/27/2022 to more accurately reflect our healthy population. There may be differences in the flagging of prior results with similar values performed with this method. Interpretation of those prior results can be made in the context of the updated reference intervals. 05/09/2020 22 0 - 70 U/L Final Bilirubin Conjugated Date Value Ref Range Status 12/29/2007 0.0 0.0 - 0.3 mg/dL Final Bilirubin Total Date Value Ref Range Status 12/08/2022 1.1 <=1.2 mg/dL Final 05/09/2020 0.5 0.2 - 1.3 mg/dL Final Albumin Date Value Ref Range Status 12/08/2022 4.1 3.5 - 5.2 g/dL Final 09/13/2021 3.7 3.4 - 5.0 g/dL Final 05/09/2020 3.4 3.4 - 5.0 g/dL Final Alkaline Phosphatase Date Value Ref Range Status 12/08/2022 87 40 - 129 U/L Final 05/09/2020 91 40 - 150 U/L Final Most recent creatinine: Creatinine Date Value Ref Range Status 12/08/2022 7.66 (H) 0.67 - 1.17 mg/dL Final 07/09/2020 10.60 (H) 0.66 - 1.25 mg/dL Final Endoscopy: 01/2022: icscope Impression: - Preparation of the colon was poor. This exam was not adequate for colorectal cancer or polyps screening. - Perianal skin tags found on perianal exam. - A single ulcer in the small bowel 20 cm from the ileocolonic anastomosis. Biopsied. This is presumably the same ulcer that was seen before. This was smaller (now 5mm) with surrounding granular mucosa that may represent healing. Bipsies taken. - Congested mucosa in the distal small bowel. Biopsied. Otherwise remainder of ileum normal - Patent end-to-end ileo-colonic anastomosis, characterized by healthy appearing mucosa. - Diverticulosis vs old fisulas in the distal rectum. - Excoriated mucosa at the anus and in the distal rectum. Biopsied. - The examination was otherwise normal on direct and retroflexion views. - Simple Endoscopic Score for Crohn's Disease: 5, mucosal inflammatory changes secondary to Crohn's disease with ileitis. Overall exam is similar to previous but improved with decreased size of chronic small bowel ulcer - now only 5mm. Remainder of small bowel really looks almost normal apart from some patchy mild erythema and congestion. Given partial improvement IBD clinic may consider increasing Stelara to q 6 weeks or q 4 weeks. Would also consider colorectal evaluation for anoscopy. PATH: A. Ileum, ulcer: Biopsy: - Chronic active ileitis with architectural disarray, pyloric gland metaplasia, and active inflammation with ulceration and granulation tissue - Negative for granulomas and dysplasia - Immunostain for CMV is negative B. Ileum: Biopsy: - Mild chronic active ileitis with architectural disarray, pyloric gland metaplasia, and active inflammation - Negative for granulomas and dysplasia - Immunostain for CMV is negative C. Rectum: Biopsy: - Benign anorectal mucosa with quiescent colitis - No active colitis - Negative for granulomas and dysplasia 08/2020: - Normal perirectal exam. - Apparenty end-end ileocolonic anastomosis at approximately 70 cm (likely distal transverse colon). - 15 mm ulcer in the terminal ileum. Additional cobblestoning in this region. Biopsies obtained. - Unusual diverticulae in the distal 5-10 cm of the rectum without ulceration. Perhaps related to past fistulous disease. PATH: A. TERMINAL ILEUM, BIOPSY: Severe ileitis with ulceration and granulation tissue; consistent with severe chronic (Crohn) ileitis; negative for dysplasia; report of CMV immunohistochemistry to follow B. TERMINAL ILEUM, LABELED BIOPSY OF ULCER: Chronic active ileitis with granulomas; consistent with mildly active Crohn; no ulceration or dysplasia identified 11/2019: EGD: chronic gastritis. Bx neg for HP. Cscope: ulcers in small intestine and at anastomosis. Bx normal. Imaging: CT a/p: IMPRESSION: 1. Marked dilation of the main pancreatic duct up to 2.8 cm in the pancreatic tail with associated parenchymal atrophy, raising concern for main duct type IPMN, though sequela of prior pancreatitis could have a similar appearance. Follow-up GI consultation as directed below. 2. Atheromatous changes of the infrarenal aorta and iliac arteries. Iliac arteries demonstrating a medial and posterior predominance of calcification, greater on the right. 3. Multiple simple and hemorrhagic/proteinaceous cysts arising from the atrophic kidneys; no evidence of abnormal enhancement to suggest neoplasm. 4. Incidentally noted sigmoid pneumatosis without abnormal enhancement, wall thickening, or associated portal venous gas. This is likely benign idiopathic pneumatosis in the asymptomatic patient, though recommend correlation with clinical exam and lactate levels as bowel ischemia can have similar findings. 5. Slightly increased bowel containing right anterolateral abdominal wall hernia. IMPRESSION: Mr. Whelan is a 62 year old here with long-standing Crohn's disease s/p multiple bowel resections with minimal remaining bowel. Fortunately, he is not requiring TPN and stable in weight. He started on Stelara and is feeling well, having 5 BMs per day at baseline. Also, he does still smoke about 1/4ppd which is counterproductive to Crohn's healing; he is trying to quit using patches. Ziggy also has ESRD of unknown etiology, on HD. He is working towards getting on the transplant list. Ziggy underwent open subtotal pancreatectomy for main duct IPMN by Dr. Morales on 04/2021. 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 # Active Crohn's disease, dx age 15, s/p multiple bowel resections, stable, on Stelara every 4 weeks PLAN: ---Continue Stelara every 4 weeks BW every 3 months. ---Refuses future colonoscopies unless he is admitted (consider MRE? Will consult with Dr. Fairbanks) ---Stop smoking ---Continue to avoid NSAIDs RTC 6 months Deuce Majano PA-C Division of Gastroenterology, Hepatology and Nutrition [facility] E GAMES DEALER documented in this encounter Nursing Notes * Giulia Stevenson - 01/12/2023 8:00 AM CST Is the patient currently in the state of [place]? YES Visit mode:VIDEO If the visit is dropped, the patient can be reconnected by: VIDEO VISIT: Text to cell phone: Telephone Information: Will anyone else be joining the visit? NO (If patient encounters technical issues they should call [phone] :[phone]) How would you like to obtain your AVS? MyChart Are changes needed to the allergy or medication list? No Reason for visit: Video Visit (Recheck IBD) Giulia Stevenson [facility] E GAMES DEALER documented in this encounter Plan of Treatment Upcoming Encounters Date Type Department Care Team (Late st Contact Info) Description 04/01/2023 1:15 PM TABLE GAMES DEALER Office Visit [facility] [address] [place] [phone] Yolanda Wilkerson PAAnhC [address] [place] [address] [phone] 07/13/2023 8:00 AM CDT Virtual Visit [facility] Gastro[facility]ology [facility] [address] [place] [phone] Deuce Majano PA-C [address] [place] [phone] documented as of this encounter Visit Diagnoses Diagnosis Crohn's disease of both small and large intestine with other complication (H)- Primary documented in this encounter Care Teams Ticket Dispatcher Relationship Specialty Start Date End Date Maximino Arredondo MD [address] [place] [phone] PCP - General Family Medicine 04/02/21 Chapin Khan MD [address] [place] [address] [phone] Urology 05/10/20 Danya Barraza, [facility] [address] [place] [phone] Pharmacist Pharmacist Bio Medical Technician 12/25/20 Jeanette French, RN [address] [place] [address] [phone] Specialty Commutator Repairer Gastroenterology 12/30/21 Tammy Greenberg MD [address] [place] [address] [address] [place], [place] [phone] Cardiovascular Disease 02/24/22 Genaro Palacios MD [address] [facility] [address] [place] [address] Assigned Heart and Vascular Provider 03/28/22 Claude Rucker MD [address] [place] [address] [id number] Assigned Surgical Provider 04/11/22 Delroy Gore APRN BATTERY HAND [address] [place] [address] Assigned Nephrology Provider 04/25/22 Danya Barraza [facility] [address] [place] [address] Assigned MTM Pharmacist 12/05/22 documented as of this encounter
--- OUTSIDE RECORDS SUMMARY | 2023-03-14 02:36 | XMS_ITS | Encounter Summary ---
Author Name Unknown Organization [place] Address [address] [place] [address]. [place] [address] Care Team Providers Care Dry Ice Maker Name Role Phone Chapin Khan MD Unavailable [phone] [facility] Unavailable [phone] Maximino Arredondo MD Primary Care Provider [phone] Jeanette French RN Unavailable [phone] Tammy Greenberg MD Unavailable [phone] Genaro Palacios MD Unavailable [phone] Claude Rucker MD Unavailable [phone] Delroy Gore APRN GAS MANAGER Unavailable [phone] [facility] Unavailable [phone] Encounter Details Date Type Department Care Team (Late st Contact Info) Description 12/22/2022 Telephone [facility] [address] [place] [address] Tammy Greenberg MD [address] [place] [address] [place] [address] Social History Tobacco Use Types Packs/Day [...] encounter Miscellaneous Notes * Telephone Encounter - Josette Mitchell - 12/22/2022 4:28 PM CST 12/22 spoke to patient and scheduled an echo prior to appt w/ Paolo UCTION SUPPORT MANAGER documented in this encounter Plan of Treatment Upcoming Encounters Date Type Department Care Team (Late st Contact Info) Description 04/01/2023 1:15 PM PRODUCTION SUPPORT MANAGER Office Visit [address] [phone] Yolanda Wilkerson PA-C [address] [place] [address] [phone] 07/13/2023 8:00 AM CDT Virtual Visit [facility]ology [facility] [address] [place] [address] Deuce Majano PA-C [address] [place] [address] 388345 documented as of this encounter Visit Diagnoses Not on filedocumented in this encounter Care Teams Dry Ice Maker Relationship Specialty Start Date End Date Maximino Arredondo MD [address] [place] [address] [place] [phone] PCP - General Family Medicine 04/02/21 Chapin Khan MD [address] [place] [address] [phone] Urology 05/10/20 Danya Barraza, [facility] [address] [place] [address] [phone] Pharmacist Pharmacist Produce Assistant 12/25/20 Jeanette French, FATOUMATA [address] [place] [address] [phone] Specialty Audiology Doctor Gastroenterology 12/30/21 Tammy Greenberg MD [address] [place] [address] [phone] Cardiovascular Disease 02/24/22 [place] [address] [place] [address] 27412 Assigned Heart and Vascular Provider 03/28/22 Claude Rucker MD [address] [place] [address] [phone] Assigned Surgical Provider 04/11/22 Delroy Gore APRN [facility] [address] [place] [address] [phone] Assigned Nephrology Provider 04/25/22 Danya Barraza, [facility] [address] [place] [address] 27197 Assigned MTM Pharmacist 12/05/22 documented as of this encounter
--- OUTSIDE RECORDS SUMMARY | 2023-03-14 02:36 | XMS_ITS | Encounter Summary ---
Author Name Unknown Organization [place] Address [address] [place] [address] Care Team Providers Care Baker Test Name Role Phone Chapin Khan MD Unavailable [phone] Danya Barraza [facility] Unavailable [phone] Maximino Arredondo MD Primary Care Provider [phone] Jeanette French RN Unavailable [phone] Tammy Greenberg MD Unavailable [phone] Genaro Palacios MD Unavailable [phone] Claude Rucker MD Unavailable [phone] Delroy Gore APRN [employer] ST[employer] Unavailable [phone] Danya Barraza [facility] Unavailable [phone] Reason for Referral * Consultation (Routine) - Pending Review Specialty Diagnoses / Procedures Referred By Contac t Referred To Contact Pulmonary Disease Diagnoses History of tobacco use Cardiovascular disease Pre-transplant evaluation for kidney transplant End stage renal disease (H) Essential hypertension Delroy Gore, EMILY [employer] [address] [place] [address] [facility] 9[address] [facility] 3rd [place] [address] Referral ID Status Reason Start Date Expiration Date V isits Requested Visits Authorized [id number] Pending Review 01/04/2023 01/04/2024 1 1 Question Answer Preferred Location: [facility] Pul - Lung Disease & [facility] - [place] Scheduling Instructions: Please call to schedule your appointment Order to be scheduled by Transplant Complex Robotic Technician? No Transplant Status Pre Transplant Comments Specify reason: please see PFT's Pre-Kidney transplant evaluation Please call to schedule your appointment RESS MANAGER Encounter Details Date Type Department Care Team (Late Contact Info) Description 01/04/2023 Orders Only [facility] Transplant Clinic [address] [place] [address] Rebeca Burns RN History of tobacco use (Primary Dx); Cardiovascular disease; Pre-transplant evaluation for kidney transplant; End stage renal disease (H); Essential hypertension Social History Tobacco Use Types Packs/Day Years [...] st Contact Info) Description 04/01/2023 1:15 PM PREPRESS MANAGER Office Visit [address] [phone] Yolanda Wilkerson PA-C [address] [place] [address] 07/13/2023 8:00 AM CDT Virtual Visit [facility] Gastroenterology Clinic [address] 4th [place] [phone] Deuce Majano PA-C [address] [place] [address] [phone] Scheduled Referrals Name Type Priority Associated Diagnoses Orde r Schedule PULMONARY MEDICINE REFERRAL Referral Routine: Next available opening History of tobacco use Cardiovascular disease Pre-transplant evaluation for kidney transplant End stage renal disease (H) Essential hypertension Expected: 01/05/2023 (Approximate), Expires: 01/05/2024 documented as of this encounter Visit Diagnoses Diagnosis History of tobacco use- Primary Personal history of tobacco use, presenting hazards to health Cardiovascular disease Unspecified cardiovascular disease Pre-transplant evaluation for kidney transplant End stage renal disease (H) End stage renal disease Essential hypertension Unspecified essential hypertension documented in this encounter Care Teams Baker Test Relationship Specialty Start Date End Date Maximino Arredondo MD [address] [place] [phone] PCP - General Family Medicine 04/02/21 Chapin Khan MD [address] [place] [address] Urology 05/10/20 Danya Barraza, [facility] [address] [place] [address] [phone] Pharmacist Pharmacist Director Of Rehabilitation 12/25/20 Jeanette French, FATOUMATA [address] [place] [address] Specialty Dance Hall Hostess Gastroenterology 12/30/21 Tammy Greenberg MD [address] [facility] [address] [place], [place] 454825 Cardiovascular Disease 02/24/22 Genaro Palacios MD 6[address] [facility] [address] [place], [place] 981555 Assigned Heart and Vascular Provider 03/28/22 Claude Rucker MD [address] [place], [place] 247765 Assigned Surgical Provider 04/11/22 Delroy Gore APRN [employer] [address] [place] [address] Assigned Nephrology Provider 04/25/22 Danya Barraza [facility] [address] [place] [address] Assigned MTM Pharmacist 12/05/22 documented as of this encounter
--- OUTSIDE RECORDS SUMMARY | 2023-03-14 02:36 | XMS_ITS | Encounter Summary ---
Author Name Unknown Organization [place] Address [address] [place] [address]. [place] [address] Care Team Providers Care Backend Java Developer Name Role Phone Chapin Khan MD Unavailable [phone] Danya Barraza [facility] Unavailable Maximino Arredondo MD Primary Care Provider [phone] Jeanette French RN Unavailable [phone] Tammy Greenberg MD Unavailable [phone] Genaro Palacios MD Unavailable [phone] Claude Rucker MD Unavailable [phone] Delroy Gore APRN TRUCK LEASING MANAGER Unavailable Danya Barraza [facility] Unavailable [phone] Deuce Majano PA-C Unavailable [phone] Encounter Details Date Type Department Care Team (Late st Contact Info) Description 02/01/2023 Telephone [facility] Endoscopy [address] [place] [phone] Chapin Ruvalcaba MD [address] [facility] [address] [place], [place] [phone] Social History Tobacco Use Types Packs/Day Years [...] encounter Miscellaneous Notes * Telephone Encounter - Chapin Ruvalcaba MD - 02/01/2023 11:19 AM DISPUTE RESOLUTION ANALYST Allie: Please arrange for MRI abdomen WITHOUT CONTRAST in 1 yr. Ind - IP[place] surveillance. Clinic visit 1 week after. Can be virtual. Nimo Ruvalcaba MD bond writer Division of Gastroenterology, Hepatology and Nutrition [facility] UTE RESOLUTION ANALYST documented in this encounter Plan of Treatment Upcoming Encounters Date Type Department Care Team (Late st Contact Info) Description 04/01/2023 1:15 PM DISPUTE RESOLUTION ANALYST Office Visit [address] [phone] Yolanda Wilkerson PA-C [address] [place] [address] [phone] 07/13/2023 8:00 AM CDT Virtual Visit [facility] G[facility]ology Clinic [address] [place] [phone] Deuce Majano PA-C [address] [place] [address] [phone] documented as of this encounter Visit Diagnoses Not on filedocumented in this encounter Care Teams Backend Java Developer Relationship Specialty Start Date End Date Maximino Arredondo MD [address] [place] [phone] PCP - General Family Medicine 04/02/21 Chapin Khan MD [address] [place] [address] [phone] Urology 05/10/20 Danya Barraza, [facility] [address] [place] [address] [phone] Pharmacist Pharmacist Hvac Field Service Technician 12/25/20 Jeanette French, FATOUMATA [address] [place] [address] [phone] Specialty Nuclear Equipment Test Engineer Gastroenterology 12/30/21 Tammy Greenberg MD [address] [place] [address] 580805 Cardiovascular Disease 02/24/22 Genaro Palacios MD [address] [facility] [address] [place] [address] 301455 Assigned Heart and Vascular Provider 03/28/22 Claude Rucker MD [address] [place] [address] 380955 Assigned Surgical Provider 04/11/22 Delroy Gore APRN TRUCK LEASING MANAGER [address] [place] [address] Assigned Nephrology Provider 04/25/22 Danya Barraza RPH [address] [place] [address] Assigned MTM Pharmacist 12/05/22 Deuce Majano PA-C [address] [place], [place] [phone] Assigned Gastroenterology Provider 01/23/23 02/05/23 documented as of this encounter
--- OUTSIDE RECORDS SUMMARY | 2023-03-14 02:36 | XMS_ITS | Encounter Summary ---
Author Name Unknown Organization [place] Address [address] [place] [address]. [place] [address] Care Team Providers Care Digital Engineer Name Role Phone Chapin Khan MD Unavailable [phone] Danya Barraza [facility] Unavailable Maximino Arredondo MD Primary Care Provider [phone] Jeanette French RN Unavailable [phone] Tammy Greenberg MD Unavailable [phone] Genaro Palacios MD Unavailable [phone] Claude Rucker MD Unavailable [phone] Delroy Gore APRN MANAGER PHOTO Unavailable [phone] Danya Barraza [facility] Unavailable [phone] Reason for Visit * Reason Onset Date Comments Appointment 12/14/2022 Called to check in and room for 10:40 video visit, Patient stated needs to cancel due to being at Dialysis and getting an EEG for 1 hour. Encounter Details Date Type Department Care Team (Late st Contact Info) Description 12/14/2022 Telephone [facility] [address] [place] [address] Chapin Ruvalcaba MD [address] [place] [address] [address] [place] [address] Appointment (Called to check in and room for 10:40 video visit, Patient stated needs to cancel due to being at Dialysis and getting an EEG for 1 hour. //) Social History Tobacco Use Types Packs/Day Years [...] encounter Miscellaneous Notes * Telephone Encounter - Brionna Wilhelm - 12/14/2022 10:15 AM CDT Patient needs to be rescheduled for their virtual visit due to Reason for Reschedule: Patient Request Appointment mode: Video Provider: Chapin Ruvalcaba VF documented in this encounter Plan of Treatment Upcoming Encounters Date Type Department Care Team (Late st Contact Info) Description 04/01/2023 1:15 PM DRUPAL PHP DEVELOPER Office Visit [address] [address] Yolanda Wilkerson, PAAnhC [address] [place] [address] [phone] 07/13/2023 8:00 AM CDT Virtual Visit [facility] Gastroenterology [facility] [place] [address] [facility] 4th [place] [phone] Deuce Majano PA-C [address] [place] [address] [phone] documented as of this encounter Visit Diagnoses Not on filedocumented in this encounter Care Teams Digital Engineer Relationship Specialty Start Date End Date Maximino Arredondo MD [address] [place] [phone] PCP - General Family Medicine 04/02/21 Chapin Khan MD [address] [place] [address] Urology 05/10/20 Danya Barraza, [facility] [address] [place] [address] [phone] Pharmacist Pharmacist Electric Container Tester 12/25/20 Jeanette French, RN [address] [place] [address] [phone] Specialty Hand Rigger Gastroenterology 12/30/21 Tammy Greenberg MD [address] [place] [address] [address] [place], [place] 409185 Cardiovascular Disease 02/24/22 Genaro Palacios MD [address] [place] [address] Assigned Heart and Vascular Provider 03/28/22 Claude Rucker MD [address] [place] [address] [phone] Assigned Surgical Provider 04/11/22 Delroy Gore APRN MANAGER PHOTO [address] [place] [address] Assigned Nephrology Provider 04/25/22 Danya Barraza RPH [address] [place] [address] Assigned MTM Pharmacist 12/05/22 documented as of this encounter
--- OUTSIDE RECORDS SUMMARY | 2023-03-14 02:36 | XMS_ITS | Encounter Summary ---
Author Name Unknown Organization [place] Address [address] [place] [address]. [place] [address] Care Team Providers Care Burn Out Tender Lace Name Role Phone Chapin Khan MD Unavailable [phone] Danya Barraza [facility] Unavailable Maximino Arredondo MD Primary Care Provider [phone] Jeanette French RN Unavailable [phone] Tammy Greenberg MD Unavailable [phone] Genaro Palacios MD Unavailable [phone] Claude Rucker MD Unavailable [phone] Delroy Gore APRN JIG AND FIXTURE REPAIRER Unavailable [phone] Danya Barraza [facility] Unavailable [phone] Reason for Visit * Reason Onset Date Comments Prior Auth - Medication 01/04/2023 Juicela Encounter Details Date Type Department Care Team (Late st Contact Info) Description 01/04/2023 Telephone [facility] Gastroenterology Clinic [address] [place] [address] Romi Fairbanks MD [address] [address] Prior Auth - Medication (Stelara ) Social History Tobacco Use Types Packs/Day Years [...] encounter Miscellaneous Notes * Telephone Encounter - Ralph Loja - 01/05/2023 11:30 AM CST Images from the original note were not included. Prior Authorization Not Needed per Insurance Medication: USTEKINUMAB 90 MG/ML [employer] [facility] - Expected CoPay: $ Pharmacy Filling the Rx: [facility] - [address] Pharmacy Notified: Patient Notified: EATION SUPERVISOR * Telephone Encounter - Ralph Loja - 01/04/2023 8:40 AM CST Images from the original note were not included. PA Initiation Medication: USTEKINUMAB 90 MG/ML [place] SOSY Insurance Company: [facility] - Pharmacy Filling the Rx: [facility] - [address] Filling Pharmacy Phone: Filling Pharmacy Fax: Start Date: 01/04/2023 [id number] EATION SUPERVISOR documented in this encounter Plan of Treatment Upcoming Encounters Date Type Department Care Team (Late st Contact Info) Description 04/01/2023 1:15 PM RECREATION SUPERVISOR Office Visit [address] [phone] Yolanda Wilkerson PAAnhC [address] [place] [address] 07/13/2023 8:00 AM CDT Virtual Visit [facility] G[facility]ology [facility] [address] 4th [place] [phone] Deuce Majano PA-C [address] [place] [address] [phone] documented as of this encounter Visit Diagnoses Not on filedocumented in this encounter Care Teams Burn Out Tender Lace Relationship Specialty Start Date End Date Maximino Arredondo MD [address] [place] [phone] PCP - General Family Medicine 04/02/21 Chapin Khan MD [address] [place] [address] [phone] Urology 05/10/20 Danya Barraza, [facility] [address] [place] [address] Pharmacist Pharmacist Physician Underwriter 12/25/20 Jeanette French, FATOUMATA [address] [place] [address] [phone] Specialty Functional Tester Typewriters Gastroenterology 12/30/21 Tammy Greenberg MD [address] [facility] [address] [place] [address] Cardiovascular Disease 02/24/22 Genaro Palacios MD 6[address] [facility] [address] [place], [place] 419815 Assigned Heart and Vascular Provider 03/28/22 Claude Rucker MD [address] [place], [place] 726315 Assigned Surgical Provider 04/11/22 Delroy Gore APRN JIG AND FIXTURE REPAIRER [address] [place] [address] Assigned Nephrology Provider 04/25/22 Danya Barraza [facility] [address] [place] [address] Assigned MTM Pharmacist 12/05/22 documented as of this encounter
--- OUTSIDE RECORDS SUMMARY | 2023-03-14 02:37 | XMS_ITS | Encounter Summary ---
Author Name Unknown Organization [facility] Address [address] [place] [address]. [place] [address] Care Team Providers Care Personal Insurance Advisor Name Role Phone Chapin Khan MD Unavailable [phone] Danya Barraza [facility] Unavailable [phone] Maximino Arredondo MD Primary Care Provider [phone] Jeanette French RN Unavailable [phone] Tammy Greenberg MD Unavailable [phone] Genaro Palacios MD Unavailable [phone] Claude Rucker MD Unavailable [phone] Delroy Gore APRN SERVICE STATION CONSOLE OPERATOR Unavailable [phone] Danya Barraza [facility] Unavailable [phone] Encounter Details Date Type Department Care Team (Late st Contact Info) Description 12/08/2022 9:15 AM CDT Lab [facility] [address] [place] [phone] Chronic kidney disease, stage V (H); Pre-transplant evaluation for kidney transplant; Cardiovascular disease; End stage renal disease (H); Essential hypertension; Crohn's disease of large intestine (H) Social History Tobacco Use Types Packs/Day [...] st Contact Info) Description 04/01/2023 1:15 PM [employer] Office Visit [address] [phone] Yolanda Wilkerson PA-C [address] [place] [address] [phone] 07/13/2023 8:00 AM CDT Virtual Visit [facility] [address] [phone] Deuce aMjano PA-C [address] [place] [address] [phone] documented as of this encounter Procedures Procedure Name Priority Date/Time Associated Diagnosis Comments PRA SINGLE ANTIGEN IGG ANTIBODY Routine 12/08/2022 8:27 AM CDT Chronic kidney disease, stage V (H) Pre-transplant evaluation for kidney transplant Cardiovascular disease End stage renal disease (H) Essential hypertension HLA BERTA, CPRA Routine 12/08/2022 8:27 AM CDT Chronic kidney disease, stage V (H) Pre-transplant evaluation for kidney transplant Cardiovascular disease End stage renal disease (H) Essential hypertension HLA BERTA CLASS II, SINGLE ANTIGEN Routine 12/08/2022 8:27 AM CDT Chronic kidney disease, stage V (H) Pre-transplant evaluation for kidney transplant Cardiovascular disease End stage renal disease (H) Essential hypertension HLA BERTA CLASS I, SINGLE ANTIGEN Routine 12/08/2022 8:27 AM CDT Chronic kidney disease, stage V (H) Pre-transplant evaluation for kidney transplant Cardiovascular disease End stage renal disease (H) Essential hypertension CBC WITH PLATELETS AND DIFFERENTIAL Routine 12/08/2022 8:27 AM CDT Crohn's disease of large intestine (H) PRA SINGLE ANTIGEN IGG ANTIBODY Routine 12/08/2022 8:27 AM CDT Chronic kidney disease, stage V (H) Pre-transplant evaluation for kidney transplant Cardiovascular disease End stage renal disease (H) Essential hypertension CBC WITH PLATELETS & DIFFERENTIAL Routine 12/08/2022 8:27 AM CDT Crohn's disease of large intestine (H) FOLATE Routine 12/08/2022 8:27 AM CDT Crohn's disease of large intestine (H) ERYTHROCYTE SEDIMENTATION RATE AUTO Routine 12/08/2022 8:27 AM CDT Crohn's disease of large intestine (H) DIFFERENTIAL Routine 12/08/2022 8:27 AM CDT Crohn's disease of large intestine (H) CRP INFLAMMATION Routine 12/08/2022 8:27 AM CDT Crohn's disease of large intestine (H) COMPREHENSIVE METABOLIC PANEL Routine 12/08/2022 8:27 AM CDT Crohn's disease of large intestine (H) documented in this encounter Results * HLA Berta, CPRA (12/08/2022 8:27 AM CDT) PROTOCOL CUTOFF Plan A, 500 mfi cumulative 12/17/2022 12:30 PM CDT [facility] UNOS CPRA 23 12/17/2022 12:30 PM CDT [facility] UNACCEPTABLE ANTIGENS DR:7 12/17/2022 12:30 PM CDT [facility] Blood BLOOD SPECIMEN / Unknown Venipuncture / Unknown 12/08/2022 8:27 AM CDT 12/08/2022 8:27 AM CDT Delroy Gore APRN SERVICE STATION CONSOLE OPERATOR LAB - IMMUNOL OGY ORDERABLES [facility] Immunology/Histocomp atability [facility] [address] Building, Room [address] [phone] * HLA Berta Class II, Single Antigen (12/08/2022 8:27 AM CDT) SA 2 TEST METHOD SA EDTA FCS 12/17/2022 12:30 PM CDT [facility] SA 2 CELL Class II 12/17/2022 12:30 PM CDT [facility] SA2 HI RISK BERTA None 12/17/2022 12:30 PM CDT [facility] SA2 MOD RISK BERTA None 12/17/2022 12:30 PM CDT [facility] SA 2 COMMENTS HLA PRA Test performed by modified testing procedure that may also include pretreatment of serum. Pretreatment may be the addition of calf serum, EDTA, and/or adsorption. High-risk, MFI > 3,000. Mod-risk, MFI 500-3,000. 12/17/2022 12:30 PM CDT [facility] Blood BLOOD SPECIMEN / Unknown Venipuncture / Unknown 12/08/2022 8:27 AM CDT 12/08/2022 8:27 AM CDT Delroy Gore APRN SERVICE STATION CONSOLE OPERATOR LAB - IMMUNOL OGY ORDERABLES [facility] Immunology/Histocomp atability [facility] [address] Building, Room 3-[address] [phone] * HLA Berta Class I, Single Antigen (12/08/2022 8:27 AM CDT) Pathologist [facility] SA 1 TEST METHOD SA EDTA FCS 12/17/2022 12:30 PM CDT [facility] SA 1 CELL Class I 12/17/2022 12:30 PM CDT [facility] SA1 HI RISK BERTA None 12/17/2022 12:30 PM CDT [facility] SA1 MOD RISK BERTA None 12/17/2022 12:30 PM CDT [facility] SA 1 COMMENTS HLA PRA Test performed by modified testing procedure that may also include pretreatment of serum. Pretreatment may be the addition of calf serum, EDTA, and/or adsorption. High-risk, MFI > 3,000. Mod-risk, MFI 500-3,000. 12/17/2022 12:30 PM CDT [facility] Blood BLOOD SPECIMEN / Unknown Venipuncture / Unknown 12/08/2022 8:27 AM CDT 12/08/2022 8:27 AM CDT Delroy Gore APRN SERVICE STATION CONSOLE OPERATOR LAB - IMMUNOL OGY ORDERABLES [facility] Immunology/[facility]ocomp [facility] [address] [facility] [address] [facility], Room 3-[address] [phone] * (ABNORMAL) Manual Differential (12/08/2022 8:27 AM CDT) % Neutrophils 78 % 12/08/2022 1:56 PM CDT [facility] % Lymphocytes 10 % 12/08/2022 1:56 PM CDT [facility] % Monocytes 8 % 12/08/2022 1:56 PM CDT [facility] % Eosinophils 3 % 12/08/2022 1:56 PM CDT [facility] % Basophils 1 % 12/08/2022 1:56 PM CDT [facility] Absolute Neutrophils 3.3 1.6 - 8.3 10e3/uL 12/08/2022 1:56 PM CDT [facility] Absolute Lymphocytes 0.4(L) 0.8 - 5.3 10e3/uL 12/08/2022 1:56 PM CDT [facility] Absolute Monocytes 0.3 0.0 - 1.3 10e3/uL 12/08/2022 1:56 PM CDT [facility] Absolute Eosinophils 0.1 0.0 - 0.7 10e3/uL 12/08/2022 1:56 PM CDT [facility] Absolute Basophils 0.0 0.0 - 0.2 10e3/uL 12/08/2022 1:56 PM CDT [facility] RBC Morphology Confirmed RBC Indices 12/08/2022 1:56 PM CDT [facility] Platelet Assessment Automated Count Confirmed. Platelet morphology is normal. Automated Count Confirmed. Platelet morphology is normal. 12/08/2022 1:56 PM CDT [facility] Blood BLOOD SPECIMEN / Unknown Venipuncture / Unknown 12/08/2022 8:27 AM CDT 12/08/2022 8:27 AM CDT Romi Fairbanks MD LAB - BLOOD ORDERABL ES [facility] [address] [facility] Lab (1st floor, no room number) [place] [address] [phone] * (ABNORMAL) CBC with platelets and differential (12/08/2022 8:27 AM CDT) [facility] Signature WBC Count 4.2 4.0 - 11.0 10e3/uL 12/08/2022 1:55 PM CDT [facility] Comment:This is a corrected result. Previous result was 4.0 10e3/uL on 12/08/2022 at 8:51 AM CDT RBC Count 3.15(L) 4.40 - 5.90 10e6/uL 12/08/2022 1:55 PM CDT [facility] Comment:This is a corrected result. Previous result was 3.13 10e6/uL on 12/08/2022 at 8:51 AM CDT Hemoglobin 10.5(L) 13.3 - 17.7 g/dL 12/08/2022 1:55 PM CDT [facility] Hematocrit 33.2(L) 40.0 - 53.0 % 12/08/2022 1:55 PM CDT [facility] Comment:This is a corrected result. Previous result was 34.1 % on 12/08/2022 at 8:51 AM CDT MCV 105(H) 78 - 100 fL 12/08/2022 1:55 PM CDT [facility] Comment:This is a corrected result. Previous result was 109 fL on 12/08/2022 at 8:51 AM CDT MCH 33.3(H) 26.5 - 33.0 pg 12/08/2022 1:55 PM CDT [facility] Comment:This is a corrected result. Previous result was 33.5 pg on 12/08/2022 at 8:51 AM CDT MCHC 31.6 31.5 - 36.5 g/dL 12/08/2022 1:55 PM CDT [facility] Comment:This is a corrected result. Previous result was 30.8 g/dL on 12/08/2022 at 8:51 AM CDT RDW 15.2(H) 10.0 - 15.0 % 12/08/2022 1:55 PM CDT [facility] Comment:This is a corrected result. Previous result was 14.9 % on 12/08/2022 at 8:51 AM CDT Platelet Count 63(L) 150 - 450 10e3/uL 12/08/2022 1:55 PM CDT [facility] Comment:This is a corrected result. Previous result was 66 10e3/uL on 12/08/2022 at 8:51 AM CDT % Neutrophils 12/08/2022 1:55 PM CDT [facility] Comment:This is a corrected result. Previous result was 76 % on 12/08/2022 at 8:51 AM CDT % Lymphocytes 12/08/2022 1:55 PM CDT [facility] Comment:This is a corrected result. Previous result was 14 % on 12/08/2022 at 8:51 AM CDT % Monocytes 12/08/2022 1:55 PM CDT [facility] Comment:This is a corrected result. Previous result was 7 % on 12/08/2022 at 8:51 AM CDT % Eosinophils 12/08/2022 1:55 PM CDT [facility] Comment:This is a corrected result. Previous result was 1 % on 12/08/2022 at 8:51 AM CDT % Basophils 12/08/2022 1:55 PM CDT [facility] Comment:This is a corrected result. Previous result was 1 % on 12/08/2022 at 8:51 AM CDT % Immature Granulocytes 12/08/2022 1:55 PM CDT [facility] Comment:This is a corrected result. Previous result was 0 % on 12/08/2022 at 8:51 AM CDT NRBCs per 100 WBC 1(H) <1 /100 023 1:55 PM CDT [facility] Absolute Neutrophils 12/08/2022 1:55 PM CDT [facility] Comment:This is a corrected result. Previous result was 3.1 10e3/uL on 12/08/2022 at 8:51 AM CDT Absolute Lymphocytes 12/08/2022 1:55 PM CDT [facility] Comment:This is a corrected result. Previous result was 0.6 10e3/uL on 12/08/2022 at 8:51 AM CDT Absolute Monocytes 12/08/2022 1:55 PM CDT [facility] Comment:This is a corrected result. Previous result was 0.3 10e3/uL on 12/08/2022 at 8:51 AM CDT Absolute Eosinophils 12/08/2022 1:55 PM CDT [facility] Comment:This is a corrected result. Previous result was 0.1 10e3/uL on 12/08/2022 at 8:51 AM CDT Absolute Basophils 12/08/2022 1:55 PM CDT [facility] Comment:This is a corrected result. Previous result was 0.1 10e3/uL on 12/08/2022 at 8:51 AM CDT Absolute Immature Granulocytes 12/08/2022 1:55 PM CDT [facility] Comment:This is a corrected result. Previous result was 0.0 10e3/uL on 12/08/2022 at 8:51 AM CDT Absolute NRBCs 0.0 10e3/uL 12/08/2022 1:55 PM CDT [facility] Blood BLOOD SPECIMEN / Unknown Venipuncture / Unknown 12/08/2022 8:27 AM CDT 12/08/2022 8:27 AM CDT Narrative [facility] - 12/08/2022 1:55 PM CDT Tech Comments Name of [facility] Phone [phone] What is Abnormal LOW PLT Provider Follow Up Needed No If Yes, Provider Contact Name NA If Yes, Provider Phone/Pager NA Romi Fairbanks MD LAB - BLOOD ORDERABL ES [facility] [address] Lab (1st floor, no room number) [place] [address], [facility] [phone] * PRA Single Antigen IgG Antibody (12/08/2022 8:27 AM CDT) Blood BLOOD SPECIMEN / Unknown Venipuncture / Unknown 12/08/2022 8:27 AM CDT 12/08/2022 8:27 AM CDT Delroy Gore APRN SERVICE STATION CONSOLE OPERATOR LAB - IMMUNOL OGY ORDERABLES [facility] Immunology/Histocomp atability [facility] [address] [facility], Room [address] [address] [phone] * (ABNORMAL) Folate (12/08/2022 8:27 AM CDT) Pathologist [facility] Folic Acid >40.0(H) 4.6 - 34.8 ng/mL 12/08/2022 5:09 PM CDT [facility] Blood BLOOD SPECIMEN / Unknown Venipuncture / Unknown 12/08/2022 8:27 AM CDT 12/08/2022 8:27 AM CDT Romi Fairbanks MD LAB - BLOOD ORDERABL ES [facility] [place] [facility] [address] [facility] J Building, Room [address] [address], [facility] [phone] * (ABNORMAL) Erythrocyte sedimentation rate auto (12/08/2022 8:27 AM CDT) Erythrocyte Sedimentation Rate 65(H) 0 - 20 mm/hr 12/08/2022 9:07 AM CDT [facility] Blood BLOOD SPECIMEN / Unknown Venipuncture / Unknown 12/08/2022 8:27 AM CDT 12/08/2022 8:27 AM CDT Narrative [facility] - 12/08/2022 9:07 AM CDT Repeated 2nd times as 57 Romi Fairbanks MD LAB - BLOOD ORDERABL ES [facility] [address] [facility] Lab (no room number, 1st floor of clinic) [place] [address], [facility] [phone] * (ABNORMAL) Comprehensive metabolic panel (12/08/2022 8:27 AM CDT) Sodium 137 135 - 145 mmol/L 12/08/2022 7:33 PM CDT [facility] Comment:Reference intervals for this test were updated on 11/10/2022 to more accurately reflect our healthy population. There may be differences in the flagging of prior results with similar values performed with this method. Interpretation of those prior results can be made in the context of the updated reference intervals. Potassium 4.7 3.4 - 5.3 mmol/L 12/08/2022 7:33 PM CDT [facility] Carbon Dioxide (CO2) 27 22 - 29 mmol/L 12/08/2022 7:33 PM CDT [facility] Anion Gap 16(H) 7 - 15 mmol/L 12/08/2022 7:33 PM CDT [facility] Urea Nitrogen 35.2(H) 8.0 - 23.0 mg/dL 12/08/2022 7:33 PM CDT [facility] Creatinine 7.66(H) 0.67 - 1.17 mg/dL 12/08/2022 7:33 PM CDT [facility] GFR Estimate 7(L) >60 mL/min/1. 73m2 12/08/2022 7:33 PM CDT [facility] Calcium 9.8 8.8 - 10.2 mg/dL 12/08/2022 7:33 PM CDT [facility] Chloride 94(L) 98 - 107 mmol/L 12/08/2022 7:33 PM CDT [facility] Glucose 82 70 - 99 mg/dL 12/08/2022 7:33 PM CDT [facility] Alkaline Phosphatase 87 40 - 129 U/L 12/08/2022 7:33 PM CDT [facility] AST 22 0 - 45 U/L 12/08/2022 7:33 PM CDT [facility] Comment:Reference intervals for this test were updated on 07/27/2022 to more accurately reflect our healthy population. There may be differences in the flagging of prior results with similar values performed with this method. Interpretation of those prior results can be made in the context of the updated reference intervals. ALT 14 0 - 70 U/L 12/08/2022 7:33 PM CDT [facility] Comment:Reference intervals for this test were updated on 07/27/2022 to more accurately reflect our healthy population. There may be differences in the flagging of prior results with similar values performed with this method. Interpretation of those prior results can be made in the context of the updated reference intervals. Protein Total 7.1 6.4 - 8.3 g/dL 12/08/2022 7:33 PM CDT [facility] Albumin 4.1 3.5 - 5.2 g/dL 12/08/2022 7:33 PM CDT [facility] Bilirubin Total 1.1 <=1.2 mg/dL 12/08/2022 7:33 PM CDT [facility] Blood BLOOD SPECIMEN / Unknown Venipuncture / Unknown 12/08/2022 8:27 AM CDT 12/08/2022 8:27 AM CDT Romi Fairbanks MD LAB - BLOOD ORDERABL ES [facility] [address] [facility], [address] [place] [address], [facility] [phone] * (ABNORMAL) CRP inflammation (12/08/2022 8:27 AM CDT) CRP Inflammation 25.50(H) <5.00 mg/L 12/08/2022 7:33 PM CDT [facility] Blood BLOOD SPECIMEN / Unknown Venipuncture / Unknown 12/08/2022 8:27 AM CDT 12/08/2022 8:27 AM CDT Romi Fairbanks MD LAB - BLOOD ORDERABL ES [facility] [address] [facility] [address] Building, Room 3-580 [place] [address], [facility] [phone] documented in this encounter Visit Diagnoses Diagnosis Chronic kidney disease, stage V (H) Chronic kidney disease, Stage V Pre-transplant evaluation for kidney transplant Cardiovascular disease Unspecified cardiovascular disease End stage renal disease (H) End stage renal disease Essential hypertension Unspecified essential hypertension Crohn's disease of large intestine (H) Regional enteritis of large intestine documented in this encounter Care Teams Personal Insurance Advisor Relationship Specialty Start Date End Date Maximino Arredondo MD [address] [place] [phone] PCP - General Family Medicine 04/02/21 Chapin Khan MD [address] [place] [address] Urology 05/10/20 Danya Barraza [facility] [address] [place] [address] [phone] Pharmacist Pharmacist Pulley Man 12/25/20 Jeanette French, FATOUMATA [address] [place] [address] [phone] Specialty Global Supply Chain Director Gastroenterology 12/30/21 Tammy Greenberg MD [address] [place] [address] [address] [place], [place] [phone] Cardiovascular Disease 02/24/22 Genaro Palacios MD [address] [facility] [address] [place] [address] Assigned Heart and Vascular Provider 03/28/22 Claude Rucker MD [address] [place], [place] [phone] Assigned Surgical Provider 04/11/22 Delroy Gore APRN [facility] 9[address] [place] [address] Assigned Nephrology Provider 04/25/22 Danya Barraza [facility] [address] [place] [address] Assigned MTM Pharmacist 12/05/22 documented as of this encounter
--- OUTSIDE RECORDS SUMMARY | 2023-03-14 02:37 | XMS_ITS | Encounter Summary ---
Author Name Unknown Organization [facility] Address [address] [place] [address]. [place] [address] Care Team Providers Care Line Fisher Name Role Phone Chapin Khan MD Unavailable [phone] Danya Barraza [facility] Unavailable [phone] Maximino Arredondo MD Primary Care Provider [phone] Jeanette French RN Unavailable [phone] Tammy Greenberg MD Unavailable [phone] Genaro Palacios MD Unavailable [phone] Claude Rucker MD Unavailable [phone] Delroy Gore APRN [employer] Unavailable [phone] Encounter Details Date Type Department Care Team (Late st Contact Info) Description 11/03/[address] [facility] [address] [place] [phone] Rebeca Burns, RN Social History Tobacco [...] PHQ-2 Answer Date Recorded PHQ-2 Score 0 07/08/2022 Sex and Gender Information Value Date Recorded Sex Assigned at Male 05/02/2020 10:54 AM CDT Gender Identity Male 05/02/2020 10:54 AM CDT Sexual Orientation Straight 05/02/2020 10 :54 AM CDT COVID-19 Exposure Response Date Recorded In the last 10 days, have yo u been in contact with someone who was confirmed or suspected to have Coronavirus/COVID-19? No / Unsure 10/08/2022 7:05 AM CDT documented as of this encounter Plan of Treatment Upcoming Encounters Date Type Department Care Team (Late st Contact Info) Description 04/01/2023 1:15 PM TELEVISION AUDIO ENGINEER Office Visit [address] [phone] Yolanda Wilkerson, PAAnhC [address] [place] [phone] 07/13/2023 8:00 AM CDT Virtual Visit [facility] Clinic [address] [phone] Deuce Majano PA-C [address] [place] [address] [phone] documented as of this encounter Visit Diagnoses Not on filedocumented in this encounter Care Teams Line Fisher Relationship Specialty Start Date End Date Maximino Arredondo MD [address] [place] [phone] PCP - General Family Medicine 04/02/21 Chapin Khan MD [address] [place] [address] Urology 05/10/20 Danya Barraza, [facility] [address] [place] [phone] Pharmacist Pharmacist Improvement Spec 12/25/20 Jeanette French, RN [address] [place], [place] [phone] Specialty Airline Flight Attendant Gastroenterology 12/30/21 Tammy Greenberg MD [address] [facility] 508 [place], [place] [phone] Cardiovascular Disease 02/24/22 Genaro Palacios MD [address] [facility] [address] [place] [address] Assigned Heart and Vascular Provider 03/28/22 Claude Rucker MD [address] [place] [address] [phone] Assigned Surgical Provider 04/11/22 Delroy Gore APRN [employer] [address] [place] [address] [phone] Assigned Nephrology Provider 04/25/22 documented as of this encounter
--- OUTSIDE RECORDS SUMMARY | 2023-03-14 02:37 | XMS_ITS | Encounter Summary ---
Author Name Unknown Organization [facility] Address [address] [place] [address]. [place] [address] Care Team Providers Care Upstream Biomanufacturing Technician Name Role Phone Chapin Khan MD Unavailable [phone] Danya Barraza [facility] Unavailable [phone] Maximino Arredondo MD Primary Care Provider [phone] Jeanette French RN Unavailable [phone] Tammy Greenberg MD Unavailable [phone] Genaro Palacios MD Unavailable [phone] Claude Rucker MD Unavailable [phone] Delroy Gore APRN [employer] Unavailable [phone] Encounter Details Date Type Department Care Team (Late st Contact Info) Description 11/05/[address] [facility] [address] [place] [phone] Rebeca Burns, RN Social History [...] encounter Miscellaneous Notes * Telephone Encounter - Rebeca Burns RN - 11/05/2022 3:08 PM CDT Called patient to discuss selection committee meeting from 11/04/22. Patient approved for living donor only, and will need low dose chest CT and PFT's if living donor is found. Patient verbalized understanding and is in agreement with the plan, has providers contact information and will call when heis able to find a donor to schedule the rest of evaluation. Letter will be sent. documented in this encounter Plan of Treatment Upcoming Encounters Date Type Department Care Team (Late st Contact Info) Description 04/01/2023 1:15 PM CONCRETE VIBRATOR OPERATOR Office Visit [address] [phone] Yolanda Wilkerson PA-C [address] [place] [address] [phone] 07/13/2023 8:00 AM CDT Virtual Visit [facility] Gastroenterology [address] [phone] Deuce Majano PA-C [address] [place] [address] [phone] documented as of this encounter Visit Diagnoses Not on filedocumented in this encounter Care Teams Upstream Biomanufacturing Technician Relationship Specialty Start Date End Date Maximino Arredondo MD [address] [place] [address] [place] [phone] PCP - General Family Medicine 04/02/21 Chapin Khan MD [address] [place] [address] [phone] Urology 05/10/20 [facility] [address] [place] [address] [phone] Pharmacist Pharmacist Economics Lecturer 12/25/20 Jeanette French RN [address] [place] [address] [phone] Specialty Special Librarian Gastroenterology 12/30/21 Tammy Greenberg MD [address] [place] [address] [address] [place] [address] Cardiovascular Disease 02/24/22 Genaro Palacios MD [address] [facility] [address] [place] [address] [phone] Assigned Heart and Vascular Provider 03/28/22 Claude Rucker MD [address] [place] [address] [phone] Assigned Surgical Provider 04/11/22 Delroy Gore APRN [employer] [address] [place] [address] Assigned Nephrology Provider 04/25/22 documented as of this encounter
--- OUTSIDE RECORDS SUMMARY | 2023-03-14 02:37 | XMS_ITS | Encounter Summary ---
Author Name Unknown Organization [facility] Address [address] [place] [address]. [place] [address] Care Team Providers Care Garbage Man Name Role Phone Chapin Khan MD Unavailable [phone] Danya Barraza [facility] Unavailable [phone] Maximino Arredondo MD Primary Care Provider [phone] Jeanette French RN Unavailable [phone] Tammy Greenberg MD Unavailable [phone] Genaro Palacios MD Unavailable [phone] Claude Rucker MD Unavailable [phone] Delroy Gore APRN STONEMASON SUPERVISOR Unavailable [phone] Danya Barraza [facility] Unavailable [phone] Encounter Details Date Type Department Care Team (Latest Contact Info) Description 12/05/2022 Travel Social History Tobacco Use Types Packs/Day [...] st Contact Info) Description 04/01/2023 1:15 PM AIRLINE FLIGHT ATTENDANT Office Visit [address] [phone] Yolanda Wilkerson PAAnhC [address] [place] [address] [phone] 07/13/2023 8:00 AM CDT Virtual Visit [facility] [address] [place] [phone] Deuce Majano PA-C [address] [place] [address] documented as of this encounter Visit Diagnoses Not on filedocumented in this encounter Care Teams Garbage Man Relationship Specialty Start Date End Date Maximino Arredondo MD [address] [place] [phone] PCP - General Family Medicine 04/02/21 Chapin Khan MD [address] [place] [address] [phone] Urology 05/10/20 Danya Barraza, [facility] [address] [place] [address] Pharmacist Pharmacist Drafter Geophysical 12/25/20 Jeanette French, RN [address] [place] [address] Specialty Advanced Registered Nurse Gastroenterology 12/30/21 Tammy Greenberg MD [address] [place] [address] [address] [place], [place] [phone] Cardiovascular Disease 02/24/22 Genaro Palacios MD [address] [facility] [address] [place], [place] 968785 Assigned Heart and Vascular Provider 03/28/22 Claude Rucker MD [address] [place] [address] [id number] Assigned Surgical Provider 04/11/22 Delroy Gore, PASSEMENTERIE WORKER STONEMASON SUPERVISOR [address] [place], [place] 864415 Assigned Nephrology Provider 04/25/22 Danya Barraza, [facility] [address] [place], [place] 530025 Assigned MTM Pharmacist 12/05/22 documented as of this encounter
--- OUTSIDE RECORDS SUMMARY | 2023-03-14 02:37 | XMS_ITS | Encounter Summary ---
Author Name Unknown Organization [facility] Address [address] [place] [address]. [place] [address] Care Team Providers Care Railcar Foreman Name Role Phone Chapin Khan MD Unavailable [phone] Danya Barraza [facility] Unavailable [phone] Maximino Arredondo MD Primary Care Provider Jeanette French RN Unavailable Tammy Greenberg MD Unavailable [phone] Genaro Palacios MD Unavailable [phone] Claude Rucker MD Unavailable Delroy Gore APRN THERAPIST PHYS Unavailable [phone] Reason for Referral * Diagnostic Imaging CT Scan (Routine) - Closed Specialty Diagnoses / Procedures Referred By Contusama t Referred To Contact Radiology. Diagnoses Cardiovascular disease History of tobacco use Essential hypertension End stage renal disease (H) Pre-transplant evaluation for kidney transplant Procedures CT Chest Low Dose Non Contrast Delroy Gore APRN THERAPIST PHYS [address] [place] [address] [address] Referral ID Status Reason Start Date Expiration Date Visits Re quested Visits Authorized [id number] Closed 11/30/2022 11/30/2023 1 1 Encounter Details Date Type Department Care Team (Late st Contact Info) Description 11/30/2022 Telephone [facility] [address] [place] [address] Rebeca Burns RN Social History Tobacco Use Types Packs/Day [...] Telephone Encounter - Rebeca Burns RN - 11/30/2022 11:20 AM CDT Called patient to schedule PFT's and low dose chest CT to complete evaluation. Patient scheduled for MRI next week at [facility], will attempt to schedule these tests to finish evaluation. Patientverbalized good understanding and in good agreement with the plan. documented in this encounter Plan of Treatment Upcoming Encounters Date Type Department Care Team (Late st Contact Info) Description 04/01/2023 1:15 PM LATEX THREAD MACHINE OPERATOR Office Visit [address] [place] [phone] Yolanda Wilkerson, RADHA [address] [place] [address] [phone] 07/13/2023 8:00 AM CDT Virtual Visit [facility] [address] [place] [phone] Deuce Majano PA-C [address] [place] [address] [phone] Scheduled Orders Name Type Priority Associated Diagnoses Orde r Schedule General PFT Lab (Please always keep checked) PFT Routine Cardiovascular disease History of tobacco use Essential hypertension End stage renal disease (H) Pre-transplant evaluation for kidney transplant Expected: 06/01/2023 (Approximate), Expires: 12/01/2023 Pulmonary Function Test PFT Routine Cardiovascular disease History of tobacco use Essential hypertension End stage renal disease (H) Pre-transplant evaluation for kidney transplant Expected: 11/30/2022 (Approximate), Expires: 12/01/2023 documented as of this encounter Results * CT Chest Low Dose Non Contrast (12/08/2022 10:01 AM CDT) Anatomical Region Laterality Modality Chest, SUBRAD CT BODY, UMP CT CHEST Computed Tomography Impressions 12/08/2022 10:40 AM CDT IMPRESSION: 1. Diffuse atherosclerosis. 2. Aortic valve leaflet calcifications, please correlate for aortic valve stenosis. 3. Mitral annular calcifications, please correlate for mitral valve disorder. 4. No dominant suspicious pulmonary finding. 5. Benign appearing T9 vertebral bone island. DORIAN RINCON MD Narrative 12/08/2022 10:[address] chest without contrast indication: Hypertension. End-stage renal disease. Pretransplant evaluation. Long-standing history of smoking. COMPARISON: None FINDINGS: No contrast. The included thyroid appears unremarkable. There is arthroscopic calcification in the thoracic aorta, major arterial branch vessels and coronary arteries. Coarse mitral annular calcifications are noted. Aortic valve leaflet calcifications are present, please correlate for aortic valve stenosis. Coarse pericardial calcification noted laterally on the left. No pleural or pericardial effusion. Heart is borderline enlarged. Aortic caliber normal. Pulmonary artery caliber normal. Calcified right hilar small lymph node. Breast tissue is grossly unremarkable. Esophagus grossly unremarkable. Bone detail shows bone island in T9. Mild degenerative changes in the lower cervical spine. Detail of the lungs shows mild areas of bronchial wall thickening throughout the lungs. Scattered areas of subsegmental atelectasis bilaterally. Calcified right lung base 2 mm granuloma posteriorly. No dominant suspicious pulmonary nodule. Procedure Note Dorian Rincon MD - 12/08/2022 CT chest without contrast indication: Hypertension. End-stage renal disease. Pretransplant evaluation. Long-standing history of smoking. COMPARISON: None FINDINGS: No contrast. The included thyroid appears unremarkable. There is arthroscopic calcification in the thoracic aorta, major arterial branch vessels and coronary arteries. Coarse mitral annular calcifications are noted. Aortic valve leaflet calcifications are present, please correlate for aortic valve stenosis. Coarse pericardial calcification noted laterally on the left. No pleural or pericardial effusion. Heart is borderline enlarged. Aortic caliber normal. Pulmonary artery caliber normal. Calcified right hilar small lymph node. Breast tissue is grossly unremarkable. Esophagus grossly unremarkable. Bone detail shows bone island in T9. Mild degenerative changes in the lower cervical spine. Detail of the lungs shows mild areas of bronchial wall thickening throughout the lungs. Scattered areas of subsegmental atelectasis bilaterally. Calcified right lung base 2 mm granuloma posteriorly. No dominant suspicious pulmonary nodule. IMPRESSION: 1. Diffuse atherosclerosis. 2. Aortic valve leaflet calcifications, please correlate for aortic valve stenosis. 3. Mitral annular calcifications, please correlate for mitral valve disorder. 4. No dominant suspicious pulmonary finding. 5. Benign appearing T9 vertebral bone island. DORIAN RINCON MD Delroy Gore GAS APPLIANCE INSTALLER THERAPIST PHYS IMG CT ORDERA BLES documented in this encounter Visit Diagnoses Diagnosis Cardiovascular disease- Primary Unspecified cardiovascular disease History of tobacco use Personal history of tobacco use, presenting hazards to health Essential hypertension Unspecified essential hypertension End stage renal disease (H) End stage renal disease Pre-transplant evaluation for kidney transplant Cardiovascular disease Unspecified cardiovascular disease History of tobacco use Personal history of tobacco use, presenting hazards to health Essential hypertension Unspecified essential hypertension End stage renal disease (H) End stage renal disease Pre-transplant evaluation for kidney transplant documented in this encounter Care Teams Railcar Foreman Relationship Specialty Start Date End Date Maximino Arredondo MD [address] [place], [place] [address]azra [facility] [place] [address] PCP - General Family Medicine 04/02/21 Chapin Khan MD [address] [place] [address] [id number] Urology 05/10/20 Danya Barraza, [facility] [address] [place] [address] [phone] Pharmacist Pharmacist Talent Development Director 12/25/20 Jeanette French, FATOUMATA [address] [place] [address] [phone] Specialty Build Master Gastroenterology 12/30/21 Tammy Greenberg MD [address] [place] [address] [address] [place], [place] 224185 Cardiovascular Disease 02/24/22 Genaro Palacios MD [address] [facility] [address] [place] [address] Assigned Heart and Vascular Provider 03/28/22 Claude Rucker MD [address] [place] [address] [id number] Assigned Surgical Provider 04/11/22 Delroy Gore APRN THERAPIST PHYS [address] [place] [address] [phone] Assigned Nephrology Provider 04/25/22 documented as of this encounter
--- OUTSIDE RECORDS SUMMARY | 2023-03-14 02:37 | XMS_ITS | Encounter Summary ---
Author Name Unknown Organization [facility] Address [address] [place] [address]. [place] [address] Care Team Providers Care Tuckpointer Name Role Phone Chapin Khan MD Unavailable [phone] Danya Barraza [facility] Unavailable [phone] Maximino Arredondo MD Primary Care Provider [phone] Jeanette French RN Unavailable [phone] Tammy Greenberg MD Unavailable [phone] Genaro Palacios MD Unavailable [phone] Claude Rucker MD Unavailable [phone] Delroy Gore APRN GLOBAL ACCOUNT MANAGER Unavailable [phone] Danya Barraza [facility] Unavailable [phone] Encounter Details Date Type Department Care Team (Latest Contact Info) Description 12/08/2022 2:30 PM CDT Office Visit [facility] Pulmonary Function Testing [address] [place] [address] Cardiovascular disease; History of tobacco use; Essential hypertension; End stage renal disease (H); Pre-transplant evaluation for kidney transplant Social History Tobacco Use Types Packs/Day Years [...] as of this encounter Progress Notes * Yuriy De La Rosa - 12/08/2022 2:30 PM CDT Full PFT with Bronchodilator documented in this encounter Plan of Treatment Upcoming Encounters Date Type Department Care Team (Late st Contact Info) Description 04/01/2023 1:15 PM SENIOR EXECUTIVE COMPENSATION ANALYST Office Visit [address] [phone] Yolanda Wilkerson PA-C [address] [place] [address] [phone] 07/13/2023 8:00 AM CDT Virtual Visit [facility] Gastroenterology Clinic [address] [place] [phone] Deuce Majano PA-C [address] [place] [phone] documented as of this encounter Procedures Procedure Name Priority Date/Time Associated Diagnosis Comments IA DIFFUSING CAPACITY Routine 12/08/2022 12:00 PM CDT End stage renal disease (H) IA PLETHYSMOGRAPHY LUNG VOLUMES W/WO AIRWAY RESIST Routine 12/08/2022 12:00 PM CDT End stage renal disease (H) IA BRONCHODILATION RESPONSE, PRE/POST ADMIN Routine 12/08/2022 12:00 PM CDT End stage renal disease (H) PFT GENERAL LAB TESTING Routine 12/09/19 11:35 AM CDT End stage renal disease (H) documented in this encounter Results * General PFT Lab (Please always keep checked) (12/08/2022 11:35 AM CDT) FVC-Pred 4.28 L BREEZE PFT FVC-Pre 3.41 L [place]REEZE PFT FVC-%Pred-Pre 79 % B[facility]ZE PFT FEV1-Pre 1.16 L BREEZE PFT FEV1-%Pred-Pre 34 % BREEZE PFT [id number] 78 % BREEZE PFT [id number] 34 % BREEZE PFT FEFMax-Pred 9.16 L/sec BREEZE PFT FEFMax-Pre 3.25 L/sec BREEZE PFT FEFMax-%Pred-Pr e 35 % BREEZE PFT [id number] 2.70 L/sec BREEZE PFT [id number] 0.37 L/sec BREEZE PFT BZI4665-%Pred-P re 13 % BREEZE PFT [id number] 0.51 L/sec BREEZE PFT PRY9433-%Pred-P ost 18 % BREEZE PFT ExpTime-Pre 14.44 sec BREEZE PFT FIFMax-Pre 5.29 L/sec BREEZE PFT VC-Pred 4.48 L BREEZE PFT VC-Pre 3.28 L BREEZE PFT VC-%Pred-Pre 73 % BREEZE PFT IC-Pred 3.18 L BREEZE PFT IC-Pre 2.04 L BREEZE PFT IC-%Pred-Pre 64 % BREEZE PFT ERV-Pred 1.59 L BREEZE PFT ERV-Pre 1.24 L BREEZE PFT ERV-%Pred-Pre 77 % BREEZE PFT [id number] 79 % BREEZE PFT [id number] 43 % BREEZE PFT FRCPleth-Pred 3.70 L BREEZE PFT FRCPleth-Pre 4.53 L BREEZE PFT FRCPleth-%Pred- Pre 122 % BREEZE PFT RVPleth-Pred 2.53 L BREEZE PFT RVPleth-Pre 3.30 L BREEZE PFT RVPleth-%Pred-P re 130 % BREEZE PFT TLCPleth-Pred 7.33 L BREEZE PFT TLCPleth-Pre 6.58 L BREEZE PFT TLCPleth-%Pred- Pre 89 % BREEZE PFT DLCOunc-Pred 27.72 ml/min/mmHg BREEZE PFT DLCOunc-Pre 16.76 ml/min/mmHg BREEZE PFT DLCOunc-%Pred-P re 60 % BREEZE PFT DLCOcor-Pre 19.45 ml/min/mmHg BREEZE PFT DLCOcor-%Pred-P re 70 % BREEZE PFT VA-Pre 5.54 L BREEZE PFT VA-%Pred-Pre 82 % BREEZE PFT [id number] 74 % BREEZE PFT [id number] 35 % BREEZE PFT 12/08/2022 11:3 5 AM CDT Narrative BREEZE PFT - 12/09/2022 6:52 PM CDT The FEV1 and FEV1/FVC ratio are reduced, but the FVC is within normal limits. TLC is normal while RV and RV/TLC are increased. ??Following administration of bronchodilators, there is no significant response. ??The diffusing capacity is reduced after correction for hemoglobin. IMPRESSION: Moderate airflow obstruction with concurrent air trapping but no hyperinflation. No significant change following bronchodilators, but this does not rule out clinical benefit. Mild diffusion defect. ?This interpretation has been electronically signed: ??MARILYN PETIT 12/09/2022 ??06:30:47 PM? Delroy Gore LINE PAINTING MACHINE OPERATOR GLOBAL ACCOUNT MANAGER PFT ORDERABLE S BREEZE PFT documented in this encounter Visit Diagnoses Diagnosis Cardiovascular disease Unspecified cardiovascular disease History of tobacco use Personal history of tobacco use, presenting hazards to health Essential hypertension Unspecified essential hypertension End stage renal disease (H) End stage renal disease Pre-transplant evaluation for kidney transplant documented in this encounter Care Teams Tuckpointer Relationship Specialty Start Date End Date Maximino Arredondo MD [address] [place] [address] PCP - General Family Medicine 04/02/21 Chapin Khan MD [address] [place] [address] [id number] Urology 05/10/20 Danya Barraza, [facility] [address] [place] [address] [phone] Pharmacist Pharmacist Aluminum Fabrication Supervisor 12/25/20 Jeanette French, FATOUMATA [address] [place] [address] [phone] Specialty Software Administrator Gastroenterology 12/30/21 Tammy Greenberg MD [address] [place] [address] 508 [place], [place] 097925 Cardiovascular Disease 02/24/22 Genaro Palacios MD [address] [facility] [address] [place] [address] Assigned Heart and Vascular Provider 03/28/22 Claude Rucker MD [address] [place] [address] [phone] Assigned Surgical Provider 04/11/22 Delroy Gore APRN GLOBAL ACCOUNT MANAGER [address] [place] [address] [phone] Assigned Nephrology Provider 04/25/22 Danya Barraza [facility] 9 [place] [address] Assigned MTM Pharmacist 12/05/22 documented as of this encounter
--- OUTSIDE RECORDS SUMMARY | 2023-03-14 02:37 | XMS_ITS | Encounter Summary ---
Author Name Unknown Organization [facility] Address [address] [place] [address]. [place] [address] Care Team Providers Care Biomed Tech Name Role Phone Chapin Khan MD Unavailable [phone] [facility] Unavailable [phone] Maximino Arredondo MD Primary Care Provider [phone] Jeanette French RN Unavailable [phone] Tammy Greenberg MD Unavailable [phone] Genaro Palacios MD Unavailable [phone] Claude Rucker MD Unavailable [phone] Delroy Gore APRN INSURANCE VERIFIER Unavailable [phone] Encounter Details Date Type Department Care Team (Late st Contact Info) Description 11/03/2022 Team Conference [facility] Transplant Clinic [address] [place] [phone] Rebeca Burns, RN Social History Tobacco [...] Telephone Encounter - Rebeca Burns RN - 11/03/2022 4:10 PM CDT Image Review Meeting ATTENDEES: Dr. Khan, Carmen Crandall, Danya Cardozo, Rosalia Smallwood IMAGES REVIEWED: Aorto/Iliac US 05/14/22 DECISION: US approved for transplant, will need follow up CT Abdomen/Pelvis in 2-3 months. INCIDENTALS: No documented in this encounter Plan of Treatment Upcoming Encounters Date Type Department Care Team (Late st Contact Info) Description 04/01/2023 1:15 PM BRANCH ADMINISTRATOR Office Visit [address] [phone] Yolanda Wilkerson PA-C [address] [place] [address] [phone] 07/13/2023 8:00 AM CDT Virtual Visit [facility] Gastroenterology Clinic [address] [phone] Deuce Majano PA-C [address] [place] [address] [phone] documented as of this encounter Visit Diagnoses Not on filedocumented in this encounter Care Teams Biomed Tech Relationship Specialty Start Date End Date Maximino Arredondo MD [address] [place] [address] JOLENE Paz [phone] PCP - General Family Medicine 04/02/21 Chapin Khan MD [address] [place] [address] Urology 05/10/20 Danya Barraza, [facility] [address] [place] [address] [phone] Pharmacist Pharmacist Underwear Trimmer 12/25/20 Jeanette Frnech, FATOUMATA [address] [place] [address] Specialty Electrical Panel Builder Gastroenterology 12/30/21 Tammy Greenberg MD [address] [place] [address] 508 [place], [place] 049235 Cardiovascular Disease 02/24/22 Genaro Palacios MD [address] [facility] [address] [place], [place] 597535 Assigned Heart and Vascular Provider 03/28/22 Claude Rucker MD [address] [place] [address] [phone] Assigned Surgical Provider 04/11/22 Delroy Gore APRN [facility] [address] [place] [address] [phone] Assigned Nephrology Provider 04/25/22 documented as of this encounter
--- OUTSIDE RECORDS SUMMARY | 2023-03-14 02:37 | XMS_ITS | Encounter Summary ---
Author Name Unknown Organization [facility] Address [address] [place] [address]. [place] [address] Care Team Providers Care Paint Roller Assembler Name Role Phone Chapin Khan MD Unavailable [phone] Danya Barraza [facility] Unavailable [phone] Maximino Arredondo MD Primary Care Provider [phone] Jeanette French RN Unavailable [phone] Tammy Greenberg MD Unavailable [phone] Genaro Palacios MD Unavailable [phone] Claude Rucker MD Unavailable [phone] Delroy Gore APRN LEAD DATA ARCHITECT Unavailable [phone] Reason for Referral * Med Therapy Management (Routine) - Pending Review Specialty Diagnoses / Procedures Referred By Sommer acevedo Referred To Contact Pharmacist Diagnoses Crohn's disease of large intestine with complication (H) Romi Fairbanks MD [address] [address] Referral ID Status Reason Start Date Expiration Date V isits Requested Visits Authorized [id number] Pending Review 10/26/2022 10/26/2023 1 1 Question Answer Type of MTM: Specialty Specialty: GI Med Course of Action: Other Reason for Referral: Stelara management and refills Comments Reason for Visit * Reason Onset Date Comments Refill Request 10/18/2022 ustekinumab (ROSS MATHEUS) 90 MG/ML Encounter Details Date Type Department Care Team (Late st Contact Info) Description 10/18/2022 Refill [facility] [address] [place] [address] Romi Fairbanks MD [address] [address] Refill Request (ustekinumab (STELARA) 90 MG/ML) Social History Tobacco Use Types Packs/Day Years [...] Telephone Encounter - Jeanette French RN - 10/26/2022 12:55 PM CDT Last clinic visit: 07/08/22 Next clinic visit: 01/12/23 Last set of labs: 09/23/22 MTM: 01/14/22 Single-dose refill sent to patient's pharmacy for Stelara Q4w. MTM referral placed for further refills. Patient is up to date on clinic visits and blood work. * Telephone Encounter - Tori Sandoval RN - 10/21/2022 7:17 AM CDT ustekinumab (STELARA) 90 MG/ML Sig: Inject 1 ml ( 90 mg) subcutaneous every 4 weeks. Last Written Prescription Date: 07-10-22 Last Fill Quantity: 1 ml, # refills: 3 Last Office Visit: 07-08-22 Future Office visit: 01-12-23 Last clinic note PLAN: ---Continue Stelara every 8 weeks Sed Rate Date Value Ref Range Status 07/15/2006 36 (H) 0 - 15 mm/h Final Erythrocyte Sedimentation Rate Date Value Ref Range Status 09/23/2022 81 (H) 0 - 20 mm/hr Final CRP Inflammation Date Value Ref Range Status 09/23/2022 7.10 (H) <5.00 mg/L Final CBC RESULTS: Recent Labs Lab Test 09/23/22 0935 WBC 6.2 RBC 2.03* HGB 7.2* HCT 23.0* MCV 113* MCH 35.5* MCHC 31.3* RDW 18.0* PLT 100* Liver Function Studies - Recent Labs Lab Test 09/23/22 0935 PROTTOTAL 6.8 ALBUMIN 4.0 BILITOTAL 0.8 ALKPHOS 71 AST 26 ALT 13 Routing refill request to provider for review/approval because: Requested/current directions do not match last clinic note ( every 4 weeks/every8 weeks) * Telephone Encounter - Consuelo Ashby LPN - 10/18/2022 6:48 AM CDT Images from the original note were not included. documented in this encounter Plan of Treatment Upcoming Encounters Date Type Department Care Team (Late st Contact Info) Description 04/01/2023 1:15 PM PLASTICS NURSE Office Visit [facility] [address] [place] [phone] Yolanda Wilkerson PA-C [address] [place] [address] 07/13/2023 8:00 AM CDT Virtual Visit [facility] [address] 4th [place] [phone] Deuce Majano PA-C [address] [place] [phone] Scheduled Referrals Name Type Priority Associated Diagnoses Orde r Schedule Med Therapy Management Referral Referral Routine Crohn's disease of large intestine with complication (H) Ordered: 10/26/2022 documented as of this encounter Visit Diagnoses Diagnosis Crohn's disease of large intestine with complication (H) Regional enteritis of large intestine documented in this encounter Care Teams Paint Roller Assembler Relationship Specialty Start Date End Date Maximino Arredondo MD [address] [place] [phone] PCP - General Family Medicine 04/02/21 Chapin Khan MD [address] [place] [id number] Urology 05/10/20 Danya Barraza, [facility] [address] [place] [address] [phone] Pharmacist Pharmacist Hand Tacker 12/25/20 Jeanette French, FATOUMATA [address] [place] [address] Specialty Underground Mine Machinery Mechanic Gastroenterology 12/30/21 Tammy Greenberg MD [address] [facility] [address] [place], [place] [address] Cardiovascular Disease 02/24/22 Genaro Palacios MD [address] [facility] [address] [place], [place] [address] Assigned Heart and Vascular Provider 03/28/22 Claude Rucker MD [address] [place], [place] [address] Assigned Surgical Provider 04/11/22 Delroy Gore APRN LEAD DATA ARCHITECT [address] [place] [address] Assigned Nephrology Provider 04/25/22 documented as of this encounter
--- OUTSIDE RECORDS SUMMARY | 2023-03-14 02:37 | XMS_ITS | Encounter Summary ---
Author Name Unknown Organization [place] Address [address] [place] [address]. [place] [address] Care Team Providers Care Technical Training Instructor Name Role Phone Chapin Khan MD Unavailable [phone] Danya Barraza [facility] Unavailable Maximino Arredondo MD Primary Care Provider [phone] Jeanette French RN Unavailable [phone] Tammy Greenberg MD Unavailable [phone] Genaro Palacios MD Unavailable [phone] Claude Rucker MD Unavailable [phone] Delroy Gore APRN SAMPLE ROOM SUPERVISOR Unavailable [phone] Reason for Visit * Reason Onset Date Comments Refill Request 11/12/2022 ustekinumab (ROSS MATHEUS) 90 MG/ML Encounter Details Date Type Department Care Team (Late st Contact Info) Description 11/12/2022 Refill [facility] [address] [place] [address] Romi Fairbanks MD [address] [address] Refill Request (/ustekinumab (STELARA) 90 MG/ML /) Social History Tobacco Use Types Packs/Day Years [...] Answer Date Recorded PHQ-2 Score 0 07/08/2022 Adolescent Education Answer Date Record ed Getting School Help Needed Not on file 11/13 Sex and Gender Information Value Date Recorded Sex Assigned at Male 05/02/2020 10:54 AM CDT Gender Identity Male 05/02/2020 10:54 AM CDT Sexual Orientation Straight 05/02/2020 10 :54 AM CDT documented as of this encounter Miscellaneous Notes * Telephone Encounter - Jeanette French RN - 11/17/2022 11:11 AM CDT Last set of labs: 09/23/22 Last clinic visit: 07/08/22 Next clinic visit: 01/12/23 Upcoming MTM: 11/26/22 Stelara refilled for one-month supply. MTM scheduled for 11/26/22 and will manage further refills. * Telephone Encounter - Tori Sandoval RN - 11/16/2022 10:28 AM CDT ustekinumab (STELARA) 90 MG/ML Inject 1 ml ( 90 mg) subcutaneous every 4 weeks. Last Written Prescription Date: Last Fill Quantity: 1 ml, # refills: 0 Last Office Visit: 07-08-22 Future Office visit: 01-12-23 Last clinic note:PLAN: ---Continue Stelara every 8 weeks Sed Rate [...] refill request to provider for review/approval because: Rx: 4 weeks, clinic note 8 weeks. Last rx limited quantity, 1 ml:0Rf * Telephone Encounter - Elvira Barron LPN - 11/13/2022 12:08 PM CDT Images from the original note were not included. documented in this encounter Plan of Treatment Upcoming Encounters Date Type Department Care Team (Late st Contact Info) Description 04/01/2023 1:15 PM SLASHER MACHINE OPERATOR Office Visit [address] [phone] Yolanda Wilkerson PA-C [address] [place] [phone] 07/13/2023 8:00 AM CDT Virtual Visit [facility] [address] [place] [phone] Deuce Majano PA-C [address] [place] [phone] documented as of this encounter Visit Diagnoses Diagnosis Crohn's disease of large intestine with complication (H) Regional enteritis of large intestine documented in this encounter Care Teams Technical Training Instructor Relationship Specialty Start Date End Date Maximino Arredondo MD [address] [place], [place] [address] [place] [phone] PCP - General Family Medicine 04/02/21 Chapin Khan MD [address] [place] [address] [phone] Urology 05/10/20 Danya Barraza, [facility] [address] [place] [phone] Pharmacist Pharmacist Prospecting Observer 12/25/20 Jeanette French RN [address] [place] [address] [phone] Specialty Wreath Machine Tender Gastroenterology 12/30/21 Tammy Greenberg MD [address] [place] [address] [address] [place], [place] [address] Cardiovascular Disease 02/24/22 Genaro Palacios MD [address] [facility] [address] [place], [place] [address] Assigned Heart and Vascular Provider 03/28/22 Claude Rucker MD [address] [place] [address] [phone] Assigned Surgical Provider 04/11/22 Delroy Gore APRN SAMPLE ROOM SUPERVISOR [address] [place] [address] [phone] Assigned Nephrology Provider 04/25/22 documented as of this encounter
--- OUTSIDE RECORDS SUMMARY | 2023-03-14 02:37 | XMS_ITS | Encounter Summary ---
Author Name Unknown Organization [place] Address [address] [place] [address]. [place] [address] Care Team Providers Care Degreasing Wheel Operator Name Role Phone Chapin Khan MD Unavailable [phone] Danya Barraza [facility] Unavailable Maximino Arredondo MD Primary Care Provider Jeanette French RN Unavailable [phone] Tammy Greenberg MD Unavailable [phone] Genaro Palacios MD Unavailable [phone] Claude Rucker MD Unavailable [phone] Delroy Gore APRN DISULFURIZER TENDER Unavailable Reason for Visit * Reason Onset Date Comments ustekinumab (STELARA) 90 MG/ML 10/23/2022 proactive refill request 10/23/2022 Encounter Details Date Type Department Care Team (Late st Contact Info) Description 10/23/2022 Telephone [facility] [address] [place] [address] Romi Fairbanks MD [address] [address] ustekinumab (STELARA) 90 MG/ML; proactive refill request Social History Tobacco Use Types Packs/Day Years [...] Telephone Encounter - Jeanette French RN - 10/28/2022 9:19 AM CDT Stelara refilled on 10/26/22. * Telephone Encounter - Pooja Lehman - 10/23/2022 11:53 AM CDT Health Call Center Phone Message May a detailed message be left on voicemail: yes Reason for Call: Other: Merari from [facility] pharmacy called in regards to pt's Stelara. Merari is looking for a proactive refill. Please send to fax [phone]. Action Taken: Other: csc gi Travel Screening: Not Applicable documented in this encounter Plan of Treatment Upcoming Encounters Date Type Department Care Team (Late st Contact Info) Description 04/01/2023 1:15 PM ENGINEER SYSTEM ADMINISTRATOR Office Visit [facility] [address] [place] [phone] Yolanda Wilkerson PA-C [address] [place] [address] 07/13/2023 8:00 AM CDT Virtual Visit [facility] [address] 4[address] [place] [phone] Deuce Majano PA-C [address] [place] [address] [phone] documented as of this encounter Visit Diagnoses Not on filedocumented in this encounter Care Teams Degreasing Wheel Operator Relationship Specialty Start Date End Date Maximino Arredondo MD [address] [facility] [place] [phone] PCP - General Family Medicine 04/02/21 Chapin Khan MD [address] [place] [address] [phone] Urology 05/10/20 Danya Barraza [facility] [address] [place] [address] [phone] Pharmacist Pharmacist Farm Service Adviser 12/25/20 Jeanette French, FATOUMATA [address] [place] [address] Specialty Human Resources Assistant Manager Gastroenterology 12/30/21 Tammy Greenberg MD [address] [place] [address] [place] [address] Cardiovascular Disease 02/24/22 Genaro Palacios MD [address] [facility] [address] [place] [address] Assigned Heart and Vascular Provider 03/28/22 Claude Rucker MD [address] [place], [place] [address] Assigned Surgical Provider 04/11/22 Delroy Gore APRN [facility] [address] [place], [place] [address] Assigned Nephrology Provider 04/25/22 documented as of this encounter
--- OUTSIDE RECORDS SUMMARY | 2023-03-14 02:37 | XMS_ITS | Encounter Summary ---
Author Name Unknown Organization [facility] Address [address] [place] [address]. [place] [address] Care Team Providers Care Shank Threader Name Role Phone Chapin Khan MD Unavailable [phone] Danya Barraza [facility] Unavailable [phone] Maximino Arredondo MD Primary Care Provider [phone] Jeanette French RN Unavailable [phone] Tammy Greenberg MD Unavailable [phone] Genaro Palacios MD Unavailable [phone] Claude Rucker MD Unavailable [phone] Delroy Gore APRN MANAGER ANDROID Unavailable [phone] Danya Barraza [facility] Unavailable [phone] Reason for Visit * Diagnostic Imaging MRI (Routine) - Closed Specialty Diagnoses / Procedures Referred By Contac t Referred To Contact Radiology. Diagnoses IPMN (intraductal papillary mucinous neoplasm) Procedures MR Abdomen MRCP w/o & w Contrast MR Abdomen w/o & w Contrast MR Abdomen w/o & w Contrast Chapin Ruvalcaba MD [address] [facility] [address] [place] [address] [facility] [address] [facility] [address] [place] [address] Referral ID Status Reason Start Date Expiration Date Visits Re quested Visits Authorized [id number] Closed 05/27/2021 05/28/2023 1 1 Encounter Details Date Type Department Care Team (Latest Contact Info) Description 12/08/2022 1:45 PM CDT Ancillary Procedure [facility] [address] [facility] 1st [place] [address] Chapin Ruvalcaba MD [address] [facility] [address] [place], [place] [address] IPMN (intraductal papillary mucinous neoplasm) Social History [...] st Contact Info) Description 04/01/2023 1:15 PM SPECIMEN COLLECTOR Office Visit [address] [phone] Yolanda Wilkerson, PA-C [address] [place], [place] [phone] 07/13/2023 8:00 AM CDT Virtual Visit [facility] [address] [place] [address] Deuce Majano PA-C [address] [place] [address] [phone] documented as of this encounter Procedures Procedure Name Priority Date/Time Associated Diagnosis Comments MR ABDOMEN MRCP W/O & W CONTRAST Routine 12/08/2022 11:04 AM CDT IPMN (intraductal papillary mucinous neoplasm) documented in this encounter Results * MR Abdomen MRCP w/o & w Contrast (12/08/2022 11:04 AM CDT) Anatomical Region Laterality Modality Abdomen/Pelvis, SUBRAD MR BODY, UMP MR BODY, RAD MR Magnetic Resonance Impressions 12/09/2022 9:00 AM CDT IMPRESSION: 1. Stable surgical changes of distal pancreatectomy. No suspicious findings in the pancreatectomy bed. 2. Interval hemorrhage into and enlargement of an exophytic hemorrhagic/proteinaceous cyst arising from the lower pole of the left kidney. 3. Continued hepatic and splenic iron deposition. 4. Stable anterior right abdominal wall hernia containing loops of small bowel. DANIELLE SCHAFFER DO Narrative 12/09/2022 9:00 AM CDT Exam: MR ABDOMEN MRCP W/O & W CONTRAST, 12/09/2022 8:27 AM Indication: IPMN (intraductal papillary mucinous neoplasm) Comparison: 11/20/2021 CT, 04/17/2021 MRI, 11/20/2020 MRI, 07/30/2020 CT Technique: Images were acquired with and without intravenous gadolinium contrast through the upper abdomen. The following MR images were acquired without intravenous contrast: TrueFISP, multiplanar T2-weighted, axial T1 in/out of phase, T2-weighted MRCP images, axial diffusion-weighted and axial apparent diffusion coefficient. T1-weighted images were obtained before contrast at the multiple time points following contrast injection. 3-D reformatted images were generated by the technologist. Contrast dose: 7.5mL Gadavist FINDINGS: Gallbladder/Biliary Tree: Cholecystectomy. No abnormal intra or extrahepatic biliary dilation. Pancreas: Stable distal pancreatectomy changes with preserved bulk and intrinsic T1 signal of the residual pancreatic head/neck. No main pancreatic ductal dilation within the residual pancreas. No signal abnormality in the pancreatectomy bed. Liver: Diffuse loss of hepatic parenchymal signal on in phase images compared to out of phase images. T2 hyperintense, nonenhancing cyst at the junction of hepatic segments 7 and 8. No new focal suspicious hepatic lesion. Spleen: Not enlarged. Stable focal volume loss superiorly. Diffuse loss of splenic parenchymal signal on in phase images compared to out of phase images. Kidneys: Atrophic kidneys. Increased size of an exophytic nonenhancing cyst arising from the lower pole of the left kidney now measuring 10.6 x 7.6 x 7.7 cm and containing increased T1 hyperintense and new mixed T2 signal material. Numerous other bilateral T2 hyperintense, nonenhancing cortical cysts are not significant changed. No hydronephrosis. Adrenal glands: Normal. Bowel: No dilated small or large bowel. Lymph nodes: No lymphadenopathy. Blood vessels: The major abdominal vasculature is patent. Moderate to severe atherosclerotic plaque along the abdominal aorta and common iliac arteries without aneurysmal dilation. 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 Lung bases: Clear. Bones and soft tissues: No aggressive osseous abnormality. Stable benign vertebral body hemangioma. Degenerative endplate changes in the lower lumbar spine. Bilateral gynecomastia. Mesentery and abdominal wall: Stable anterior right abdominal wall hernia containing loops of small bowel extending between the right rectus abdominis musculature and lateral abdominal wall musculature along the semilunar line. Ascites: None. Procedure Note Danielle Schaffer, DO - 12/09/2022 Exam: MR ABDOMEN MRCP W/O & W CONTRAST, 12/09/2022 8:27 AM Indication: IPMN (intraductal papillary mucinous neoplasm) Comparison: 11/20/2021 CT, 04/17/2021 MRI, 11/20/2020 MRI, 07/30/2020 CT Technique: Images were acquired with and without intravenous gadolinium contrast through the upper abdomen. The following MR images were acquired without intravenous contrast: TrueFISP, multiplanar T2-weighted, axial T1 in/out of phase, T2-weighted MRCP images, axial diffusion-weighted and axial apparent diffusion coefficient. T1-weighted images were obtained before contrast at the multiple time points following contrast injection. 3-D reformatted images were generated by the technologist. Contrast dose: 7.5mL Gadavist FINDINGS: Gallbladder/Biliary Tree: Cholecystectomy. No abnormal intra or extrahepatic biliary dilation. Pancreas: Stable distal pancreatectomy changes with preserved bulk and intrinsic T1 signal of the residual pancreatic head/neck. No main pancreatic ductal dilation within the residual pancreas. No signal abnormality in the pancreatectomy bed. Liver: Diffuse loss of hepatic parenchymal signal on in phase images compared to out of phase images. T2 hyperintense, nonenhancing cyst at the junction of hepatic segments 7 and 8. No new focal suspicious hepatic lesion. Spleen: Not enlarged. Stable focal volume loss superiorly. Diffuse loss of splenic parenchymal signal on in phase images compared to out of phase images. Kidneys: Atrophic kidneys. Increased size of an exophytic nonenhancing cyst arising from the lower pole of the left kidney now measuring 10.6 x 7.6 x 7.7 cm and containing increased T1 hyperintense and new mixed T2 signal material. Numerous other bilateral T2 hyperintense, nonenhancing cortical cysts are not significant changed. No hydronephrosis. Adrenal glands: Normal. Bowel: No dilated small or large bowel. Lymph nodes: No lymphadenopathy. Blood vessels: The major abdominal vasculature is patent. Moderate to severe atherosclerotic plaque along the abdominal aorta and common iliac arteries without aneurysmal dilation. 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 Lung bases: Clear. Bones and soft tissues: No aggressive osseous abnormality. Stable benign vertebral body hemangioma. Degenerative endplate changes in the lower lumbar spine. Bilateral gynecomastia. Mesentery and abdominal wall: Stable anterior right abdominal wall hernia containing loops of small bowel extending between the right rectus abdominis musculature and lateral abdominal wall musculature along the semilunar line. Ascites: None. IMPRESSION: 1. Stable surgical changes of distal pancreatectomy. No suspicious findings in the pancreatectomy bed. 2. Interval hemorrhage into and enlargement of an exophytic hemorrhagic/proteinaceous cyst arising from the lower pole of the left kidney. 3. Continued hepatic and splenic iron deposition. 4. Stable anterior right abdominal wall hernia containing loops of small bowel. DANIELLE SCHAFFER, Chapin Ruvalcaba MD IMG MRI ORDERABLE S documented in this encounter Visit Diagnoses Diagnosis IPMN (intraductal papillary mucinous neoplasm) Neoplasm of unspecified nature of digestive system documented in this encounter Administered Medications Inactive Administered Medications - up to 3 most recent administrations Medication Order MAR Action Action Date Dose Rate Site gadobutrol (GADAVIST) injection 7.5 mL 7.5 mL, Intravenous, ONCE, On 12/08/22 at 1030, For 1 dose, Supplied by, and administered by MRI. $Given 12/08/2022 11:03 AM CDT 7.5 mLs documented in this encounter Care Teams Shank Threader Relationship Specialty Start Date End Date Maximino Arredondo MD [address] [facility] [place] [facility] [place] [address] PCP - General Family Medicine 04/02/21 Chapin Khan MD [address] [place] [address] 500355 Urology 05/10/20 Danya Barraza, [facility] [address] [place] [address] [phone] Pharmacist Pharmacist White Lead Filterer 12/25/20 Jeanette French, RN [address] [place], [place] [phone] Specialty Painter Ski Edge Gastroenterology 12/30/21 Tammy Greenberg MD [address] [place] [address] [address] [place], [place] 5375[address] Cardiovascular Disease 02/24/22 Genaro Palacios MD [address] [facility] [address] [place] [address] Assigned Heart and Vascular Provider 03/28/22 Claude Rucker MD [address] [place] [address] Assigned Surgical Provider 04/11/22 Delroy Gore APRN [facility] [address] [place] [address] [phone] Assigned Nephrology Provider 04/25/22 Danya Barraza RPH [address] [place] [address] [id number] Assigned MTM Pharmacist 12/05/22 documented as of this encounter
--- OUTSIDE RECORDS SUMMARY | 2023-03-14 02:37 | XMS_ITS | Encounter Summary ---
Author Name Unknown Organization [facility] Address [address] [place] [address]. [place] [address] Care Team Providers Care Notcher Name Role Phone Chapin Khan MD Unavailable [phone] Danya Barraza [facility] Unavailable [phone] Maximino Arredondo MD Primary Care Provider [phone] Jeanette French RN Unavailable [phone] Tammy Greenberg MD Unavailable [phone] Genaro Palacios MD Unavailable [phone] Claude Rucker MD Unavailable [phone] Delroy Gore APRN SECOND GRADE TEACHER Unavailable [phone] Danya Barraza [facility] Unavailable [phone] Encounter Details Date Type Department Care Team (Latest Contact Info) Description 12/08/2022 Travel Social History Tobacco Use Types Packs/Day [...] st Contact Info) Description 04/01/2023 1:15 PM SEAMARK ADVANCED OPERATOR MAINTAINER Office Visit [address] [phone] Yolanda Wilkerson PAAnhC [address] [place] [address] [phone] 07/13/2023 8:00 AM CDT Virtual Visit [facility] [address] [place] [phone] Deuce Majano PA-C [address] [place] [address] documented as of this encounter Visit Diagnoses Not on filedocumented in this encounter Care Teams Notcher Relationship Specialty Start Date End Date Maximino Arredondo MD [address] [place] [phone] PCP - General Family Medicine 04/02/21 Chapin Khan MD [address] [place] [address] [phone] Urology 05/10/20 Danya Barraza, [facility] [address] [place] [address] Pharmacist Pharmacist Construction Safety Consultant 12/25/20 Jeanette French, RN [address] [place] [address] Specialty Production Machine Shop Supervisor Gastroenterology 12/30/21 Tammy Greenberg MD [address] [place] [address] [address] [place], [place] [phone] Cardiovascular Disease 02/24/22 Genaro Palacios MD [address] [facility] [address] [place], [place] 6[address]85 Assigned Heart and Vascular Provider 03/28/22 Claude Rucker MD [address] [place] [address] [id number] Assigned Surgical Provider 04/11/22 Delroy Gore, PRINTER MAINTAINER SECOND GRADE TEACHER [address] [place], [place] [phone] Assigned Nephrology Provider 04/25/22 Danya Barraza, [facility] [address] [place], [place] [phone] Assigned MTM Pharmacist 12/05/22 documented as of this encounter
--- OUTSIDE RECORDS SUMMARY | 2023-03-14 02:37 | XMS_ITS | Encounter Summary ---
Author Name Unknown Organization [facility] Address [address] [place] [address]. [place] [address] Care Team Providers Care Brewer Helper Name Role Phone Chapin Khan MD Unavailable [phone] Danya Barraza [facility] Unavailable Maximino Arredondo MD Primary Care Provider Jeanette French RN Unavailable [phone] Tammy Greenberg MD Unavailable [phone] Genaro Palacios MD Unavailable [phone] Claude Rucker MD Unavailable [phone] Delroy Gore APRN REGULATORY AFFAIRS INTERN Unavailable [phone] Reason for Visit * Reason Onset Date Comments Refill Request 10/31/2022 Encounter Details Date Type Department Care Team (Late st Contact Info) Description 10/31/2022 MyC Refill [facility] [address] [place] [address] Romi Fairbanks MD [address] [address] Refill Request Social History Tobacco Use Types Packs/Day Years [...] Telephone Encounter - Jeanette French RN - 11/02/2022 3:09 PM CDT See separate encounter. Stelara refilled on 10/26/22. MTM scheduled for 11/26/22. documented in this encounter Plan of Treatment Upcoming Encounters Date Type Department Care Team (Late st Contact Info) Description 04/01/2023 1:15 PM JOURNALIST Office Visit [address] [phone] Yolanda Wilkerson PA-C [address] [place] [address] [phone] 07/13/2023 8:00 AM CDT Virtual Visit [facility] [address] [place] [address] Deuce Majano PA-C [address] [place] [address] [phone] documented as of this encounter Visit Diagnoses Diagnosis Crohn's disease of large intestine with complication (H) Regional enteritis of large intestine documented in this encounter Care Teams Brewer Helper Relationship Specialty Start Date End Date Maximino Arredondo MD [address] [place] [phone] PCP - General Family Medicine 04/02/21 Chapin Khan MD [address] [place] [address] [phone] Urology 05/10/20 Danya Barraza, [facility] [address] [place] [address] [phone] Pharmacist Pharmacist Front Counter Clerk 12/25/20 Jeanette French, [place] [address] [place] [address] [phone] Specialty Technical Communicator Gastroenterology 12/30/21 Tammy Greenberg MD [address] [place] [address] [address] [place], [place] 361585 Cardiovascular Disease 02/24/22 [place] [address] [place] [address] [place] [address] Assigned Heart and Vascular Provider 03/28/22 Claude Rucker MD [address] [place] [address] Assigned Surgical Provider 04/11/22 Delroy Gore, CMA REGULATORY AFFAIRS INTERN [address] [place] [address] Assigned Nephrology Provider 04/25/22 documented as of this encounter
--- OUTSIDE RECORDS SUMMARY | 2023-03-14 02:37 | XMS_ITS | Encounter Summary ---
Author Name Unknown Organization [place] Address [address] [place] [address]. [place] [address] Care Team Providers Care Casting Director Name Role Phone Chapin Khan MD Unavailable [phone] Danya Barraza [facility] Unavailable [phone] Maximino Arredondo MD Primary Care Provider [phone] Jeanette French RN Unavailable [phone] Tammy Greenberg MD Unavailable [phone] Genaro Palacios MD Unavailable [phone] Claude Rucker MD Unavailable [phone] Delroy Gore APRN TICKET PULLER Unavailable [phone] Danya Barraza [facility] Unavailable [phone] Reason for Visit * Diagnostic Imaging CT Scan (Routine) - Closed Specialty Diagnoses / Procedures Referred By Contac t Referred To Contact Radiology. Diagnoses Cardiovascular disease History of tobacco use Essential hypertension End stage renal disease (H) Pre-transplant evaluation for kidney transplant Procedures CT Chest Low Dose Non Contrast Delroy Gore APRN TICKET PULLER [address] [place] [address] [facility] 1st [place] [address] Referral ID Status Reason Start Date Expiration Date Visits Re quested Visits Authorized [id number] Closed 11/30/2022 11/30/2023 1 1 Encounter Details Date Type Department Care Team (Latest Contact Info) Description 12/08/2022 10:00 AM CDT Ancillary Procedure [facility] [address] [phone] Delroy Gore, MEDIA RELATIONS SPECIALIST TICKET PULLER [address] [place] [address] Cardiovascular disease; History of tobacco use; Essential [...] st Contact Info) Description 04/01/2023 1:15 PM DELIVERY AIDE Office Visit [address] [phone] Yolanda Wilkerson, PA-C [address] [place] [address] [phone] 07/13/2023 8:00 AM CDT Virtual Visit [facility] [address] [place] [address] Deuce Majano PA-C [address] [place] [address] [phone] documented as of this encounter Procedures Procedure Name Priority Date/Time Associated Diagnosis Comments CT CHEST LOW DOSE NON CONTRAST Routine 12/08/2022 10:01 AM CDT Cardiovascular disease History of tobacco use Essential hypertension End stage renal disease (H) Pre-transplant evaluation for kidney transplant documented in this encounter Results * CT Chest Low [...] vertebral bone island. DORIAN RINCON MD Delroy Gold B[facility] ORDERA BLES documented in this encounter Visit Diagnoses Diagnosis Cardiovascular disease Unspecified cardiovascular disease History of tobacco use Personal history of tobacco use, presenting hazards to health Essential hypertension Unspecified essential hypertension End stage renal disease (H) End stage renal disease Pre-transplant evaluation for kidney transplant documented in this encounter Care Teams Casting Director Relationship Specialty Start Date End Date Maximino Arredondo MD [address] [place] [phone] PCP - General Family Medicine 04/02/21 Chapin Khan MD [address] [place] [address] Urology 05/10/20 Danya Barraza [facility] [address] [place] [phone] Pharmacist Pharmacist Valving Machine Operator 12/25/20 Jeanette French, RN [address] [place] [address] [phone] Specialty Results Technician Gastroenterology 12/30/21 Tammy Greenberg MD [address] [place] [address] [address] [place] [address] Cardiovascular Disease 02/24/22 Genaro Palacios MD [address] [facility] [address] [place] [address] Assigned Heart and Vascular Provider 03/28/22 Claude Rucker MD [address] [place] [address] Assigned Surgical Provider 04/11/22 Delroy Gore APRN [facility] [address] [place] [address] Assigned Nephrology Provider 04/25/22 Danya Barraza [facility] [address] [place] [address] Assigned MTM Pharmacist 12/05/22 documented as of this encounter
--- OUTSIDE RECORDS SUMMARY | 2023-03-14 02:37 | XMS_ITS | Encounter Summary ---
Author Name Unknown Organization [facility] Address [address] [place] [address]. [place] [address] Care Team Providers Care Specimen Transporter Name Role Phone Chapin Khan MD Unavailable [phone] Danya Barraza [facility] Unavailable [phone] Maximino Arredondo MD Primary Care Provider [phone] Jeanette French RN Unavailable [phone] Tammy Greenberg MD Unavailable [phone] Genaro Palacios MD Unavailable [phone] Claude Rucker MD Unavailable [phone] Delroy Gore APRN BUDGET DIRECTOR Unavailable [phone] Reason for Visit * Reason Comments Medication Therapy Management * Med Therapy Management (Routine) - Pending Review Specialty Diagnoses / Procedures Referred By Sommer t Referred To Contact Pharmacist Diagnoses Crohn's disease of large intestine with complication (H) Romi Fairbanks MD [address] [address] Referral ID Status Reason Start Date Expiration Date V isits Requested Visits Authorized [id number] Pending Review 10/26/2022 10/26/2023 1 1 Encounter Details Date Type Department Care Team (Latest Contact Info) Description 11/26/2022 11:00 AM CDT Virtual Visit [facility] [address] [phone] Romi Fairbanks MD [address] 779425 Danya Barraza, [address] [phone] Crohn's disease of large intestine with complication (H) (Primary Dx); ESRD (end stage renal disease) (H) Social History Tobacco Use Types Packs/Day [...] AM CDT documented as of this encounter Patient Instructions * Patient Instructions* Danya Barraza, [facility] - 11/26/2022 11:00 AM CDT Recommendations from today's MTM visit: Danya to connect with RNCC team to discuss scope barriers. Stelara refill placed. Follow-up: 6 months for MTM It was great speaking with you today. I value your experience and would be very thankful for your time in providing feedback in our clinic survey. In the next few days, you may receive an email or text message from [employer] with a link to a survey related to your ???clinical pharmacist. To schedule another MTM appointment, please call the clinic directly or you may call the MTM scheduling line at [phone] or toll-free at . My Clinical Pharmacist's contact information: Please feel free to contact me with any questions or concerns you have. Danya Barraza PharmD, BCACP MTM Pharmacist [facility] Gastroenterology documented in this encounter Progress Notes * Danya Barraza RPH - 11/26/2022 11:00 AM CDT Medication Therapy Management (MTM) Encounter ASSESSMENT: Medication Adherence/Access: No issues identified Crohn's: Ziggy would benefit from continuing on Stelara every four weeks for now. Colonoscopy would be highly useful in assessing benefit of dose escalation. I will discuss with our RNCC team if thereis anything we can do to help coordinate this procedure given the barriers he reported. Would recommend RSV, COVID booster, and influenza vaccine - however, he declines interest in these today. ESRD: Unchanged. Follows closely with [facility]. PLAN: Danya to connect with RNCC team to discuss scope barriers. Stelara refill placed. Follow-up: 6 months for MTM SUBJECTIVE/OBJECTIVE: Ziggy Whelan is a 62 year old male called for a follow-up visit from 01/14/2022. Reason for visit: IBD health maintenance on Stelara Allergies/ADRs: Reviewed in chart Tobacco: He reports that he has been smoking cigarettes. He has a 12.50 pack- year smoking history. He has never used smokeless tobacco.Nicotine/Tobacco Cessation Plan: Information offered: Patient not interested at this time He is working on it. Alcohol: rarely Medication Adherence/Access: no issues reported Crohn's: Stelara 90 mg every 4 weeks Omeprazole 20 mg daily Notes his Stelara has been going well, no difficulty with obtaining or injecting the medication. States he is not sure if Stelara is doing anything. He is unable to get a scope since he does not havea log driver, and reports they will no longer let him do this as an inpatient. We reviewed health maintenance as noted below. Declines interest in a majority of the vaccines. Last provider visit: 07/08/[address] Fair[address] Next provider visit: 01/12/2023 with Deuce Majano PA-C Last labs completed: 09/23/2022 Lab frequency: every 3 months - standing labs available until 09/2023 Next labs due: December 2022 Last IBD Health Maintenance Review: 12/2021 PDC: 100% (Gabriel) IBD Health Care Maintenance: Vaccinations: All patients on biologics should avoid live vaccines. -- Influenza (every year) declined -- TdaP (every 10 years) 07/29/2022 -- RSV declined -- Pneumococcal Pneumonia Prevnar-13: 02/25/2021, 07/31/2020 per [facility], Prevnar-7 noted 12/16/1999, Pneumovax-23: 12/25/1993, [facility] records note unspecific pneumonia vaccine 01/2020, -- COVID-19 03/13/20, 04/10/20, 01/13/2021, declined again -- Yearly assessment for latent Tb (verbal screening and exam, PPD or QuantiFERON-Tb testing) negative in 2022 per patient One time confirmation of immunity or serologies: -- Hepatitis A (serologies or immunizations) potentially during service -- Hepatitis B (serologies or immunizations) 07/24/2013 and 08/22/2013, [facility] scanned records indicatenon-immune 2019, non-immune 05/09/20 -- re-vaccinated 01/21/21, 04/02/2021, 07/30/2021 -- Varicella/Zoster 02/25/2021 and 04/28/2021 (Shingrix) -- Meningococcal meningitis (all patients at risk for meningitis)-- Menveo 01/21/2021, Menactra 04/02/2021, Bexsero 01/21/2021, 02/25/2021 Due to the immunosuppression in this patient, I would not advise administration of live vaccines such as varicella/VZV, intranasal influenza, MMR, or yellow fever vaccine (if traveling). Pre-Biologic Screening: -- Hep B Surface Antibody serologies indicate immunity -- was re-vaccinated -- Hep B Surface Antigen non-reactive 04/2020 -- Hep B Core Antibody non-reactive 04/2020 -- Hep C Antibody non-reactive 04/2020 Bone mineral density screening -- Recommend all patients supplement with calcium and vitamin D -- Given prior steroid use recommend DEXA if not already done Cancer Screening: Colon cancer screening: Due for disease activity assessment and screening. -- notes this is difficult for him to do because he doesn't have a log driver and lives far away Skin cancer screening: Annual visual exam of skin by electric meter tester since patient is immunocompromised PHQ-2 Score: 11/26/2022 11:15 AM 07/08/2022 1:53 PM PHQ-2 (??1998 Pfizer) Q1: Little interest or pleasure in doing things 0 0 Q2: Feeling down, depressed or hopeless 0 0 PHQ-2 Score 0 0 PHQ-2 Total Score (12-17 Years)- Positive if 3 or more points; Administer PHQ-A if positive 0 0 Misc: -- Avoid tobacco use -- Avoid NSAIDs as there is potentially a 25% chance of causing an IBD flare ESRD: Amlodipine 10 mg daily Carvedilol 12.5 mg twice daily Folic acid 1 mg daily EMLA cream prior to dialysis access Renal-vyte daily Calcium acetate 2,668 mg three times daily Notes he feels low at 130 mmHg, so he usually keeps his blood pressure in the range of 130-140 mmHgsystolic. Notes that he hasn't seen the 170s in a long time. On dialysis, which he gets at [facility]. They follow his BPs closely. States he was just added to the living donor transplant list. BP Readings from Last 3 Encounters: 10/08/22 (!) 143/76 08/10/22 (!) 169/78 06/24/22 (!) 175/70 I spent 30 minutes with this patient today. All changes were made via collaborative practice agreement with Romi Fairbanks. A copy of the visit note was provided to the patient's provider(s). A summary of these recommendations was sent via [employer]. Danya CarterD, BCACP MTM Pharmacist [facility] Gastroenterology Telemedicine Visit Details Type of service: Telephone visit Start Time: 11:02 AM End Time: 11:33 AM Medication Therapy Recommendations No medication therapy recommendations to display documented in this encounter Plan of Treatment Upcoming Encounters Date Type Department Care Team (Late st Contact Info) Description 04/01/2023 1:15 PM BASIC ACOUSTIC ANALYST Office Visit [address] [phone] Yolanda Wilkerson PA-C [address] [place] [address] 114955 07/13/2023 8:00 AM CDT Virtual Visit [facility] [address] 4th [place] [phone] Deuce Majano PA-C [address] [place] [address] [phone] documented as of this encounter Visit Diagnoses Diagnosis Crohn's disease of large intestine with complication (H)- Primary Regional enteritis of large intestine ESRD (end stage renal disease) (H) End stage renal disease documented in this encounter Care Teams Specimen Transporter Relationship Specialty Start Date End Date Maximino Arredondo MD [address] [place] [address] PCP - General Family Medicine 04/02/21 Chapin Khan MD [address] [place] [address] [phone] Urology 05/10/20 Danya Barraza [facility] [address] [place] [address] [phone] Pharmacist Pharmacist Valet 12/25/20 Jeanette French, RN [address] [place], [place] 470355 Specialty Retrieval Specialist Gastroenterology 12/30/21 Tammy Greenberg MD [address] [place] [address] [address] [place] [address] Cardiovascular Disease 02/24/22 Genaro Palacios MD [address] [address] Assigned Heart and Vascular Provider 03/28/22 Claude Rucker MD [address] [place] [address] [phone] Assigned Surgical Provider 04/11/22 Delroy Gore APRN BUDGET DIRECTOR [address] [place] [address] [phone] Assigned Nephrology Provider 04/25/22 documented as of this encounter
--- OUTSIDE RECORDS SUMMARY | 2023-03-14 02:38 | XMS_ITS | Encounter Summary ---
Author Name Unknown Organization [facility] Address [facility] [place] [address] Care Team Providers Care Automatic Riveting Machine Operator Name Role Phone Chapin Khan MD Unavailable [phone] Danya Barraza [facility] Unavailable [phone] Maximino Arredondo MD Primary Care Provider [phone] Jeanette French RN Unavailable [phone] Tammy Greenberg MD Unavailable [phone] Genaro Palacios MD Unavailable [phone] Claude Rucker MD Unavailable [phone] Delroy Gore APRN [employer] MEMBER Unavailable [phone] Reason for Referral * Diagnostic Imaging Ultrasound (Routine) - Pending Review Specialty Diagnoses / Procedures Referred By Contac t Referred To Contact Radiology. Diagnoses AV fistula stenosis, subsequent encounter Procedures US Ext Arterial Venous Dialys Acs Graft Genaro Palacios MD [address] [place] [address] Referral ID Status Reason Start Date Expiration Date V isits Requested Visits Authorized [id number] Pending Review 10/08/2022 10/08/2023 1 1 Reason for Visit * Reason Comments RECHECK AVF (8:00VHC; 9:30WR O) History of left AVF revision with PTFE graft from infraclavicular subclavian vein to internal jugular vein on 03/31/22; 4 month follow up to 05/28/[address] Palacios. Encounter Details Date Type Department Care Team (Late st Contact Info) Description 10/08/2022 9:30 AM CDT Office Visit [facility] [place] [address] [place] Barraza [phone] Genaro Palacios MD [address] [place] [address] ESRD (end stage renal disease) on dialysis (H) (Primary Dx); AV fistula stenosis, subsequent encounter Social History Tobacco Use Types Packs/Day Years Used Date Smoking Tobacco: Every Day Cigarettes 0.3 50 Last attempted to quit: 12/04/2019 Smokeless Tobacco: Never Tobacco Cessation:Ready to Q uit: Yes; Counseling Given: Yes Alcohol Use Standard Drinks/Week Comments Yes 0 [...] Sign Reading Time Taken Comments Blood Pressure 143/76 10/08/2022 9:14 AM CDT Pulse 85 10/08/2022 9:14 AM CDT Temperature - - Respiratory Rate - - Oxygen Saturation - - Inhaled Oxygen Concentration - - Weight - - Height - - Body Mass Index - - documented in this encounter Progress Notes * Genaro Palacios MD - 10/08/2022 9:30 AM CDT Images from the original note were not included. [facility] Moisés Whelan returns for follow-up. He is on chronic hemodialysis via left upper arm brachial to cephalic fistula. 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 Outflow revision 03/31/2022 with a 10 mm thin-walled ringed propatent PTFE graft from the infraclavicular subclavian vein into the internal jugular vein. Functioning very well on follow-up 05/28/2022. 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 We recommended a 4-month follow-up today. Dialysis is at the [facility] unit in [facility]. Dialysis has been going very well with no elevated venous pressures. Will occasionally have some needle hole bleeding when he removes the dressings but would be better if he moisten the dressings. This is a relatively uncommon issue. 09/23/2022 laboratory: K= 3.5 SCr= 3.61 Hgb= 7.2 Exam: Alert and appropriate. Blood pressure 143/76 right arm. Pulse 85. Chest= clear Cardiovascular= regular rate Left upper arm fistula with 2 areas of mild aneurysmal dilatation with overlying normal thickness skin. Somewhat firmer pulse as expected from stenosis. Junction of the fistula to PTFE graft easily palpable in shoulder region. Fistula/graft duplex performed. Good function of graft with outflow volume= 1519 mL/min. There is astenosis at the beginning of the PTFE stent near the shoulder with a diameter down to 3.4 mm (previously 8.5 mm) and elevated velocity. 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 However, still with excellent function and outflow volume. Would not recommend any intervention at this time but if he notices increased venous pressures or more prolonged needle holding would recommend surgical vein patch to the stenotic area which I think would be a better solution than attempts at angioplasty. Otherwise, follow-up fistula/graft duplex in 4 months. 20 minutes with patient today. Genaro Palacios MD This note was created using [employer] voice recognition software which may result in baker paint errors. * Sonal Galindo - 10/08/2022 9:30 AM CDT [facility] Patient is here for a follow up. Pt is currently taking Statin. BP (!) 143/76 (BP Location: Right arm, Patient Position: Chair, Cuff Size: Adult Regular) Pulse 85 The provider has been notified that the patient has no concerns. Questions patient would like addressed today are: N/A. Refills are needed: N/A Has homecare services and agency name: Hailey Galindo MA documented in this encounter Plan of Treatment Upcoming Encounters Date Type Department Care Team (Late st Contact Info) Description 04/01/2023 1:15 PM DIRECTIONAL DRILLER Office Visit [address] [phone] Yolanda Wilkerson PA-C [address] [place] [phone] 07/13/2023 8:00 AM CDT Virtual Visit [facility] [address] [place] [phone] Deuce Majano PA-C [address] [place] [address] [phone] Scheduled Orders Name Type Priority Associated Diagnoses Orde r Schedule US Ext Arterial Venous Dialys Acs Graft Imaging Routine AV fistula stenosis, subsequent encounter Expected: 02/07/2023 (Approximate), Expires: 10/09/2023 documented as of this encounter Visit Diagnoses Diagnosis ESRD (end stage renal disease) on dialysis (H)- Primary End stage renal disease AV fistula stenosis, subsequent encounter documented in this encounter Care Teams Automatic Riveting Machine Operator Relationship Specialty Start Date End Date Maximino Arredondo MD [address] [place], [place] [address]azra [place] JOLENE Garcia [phone] PCP - General Family Medicine 04/02/21 Chapin Khan MD [address] [place] [address] [phone] Urology 05/10/20 Danya Barraza, [facility] [address] [place] [address] [phone] Pharmacist Pharmacist Infantry Weapons Crewmember 12/25/20 Jeanette French, FATOUMATA [address] [place] [phone] Specialty Parachute Inspector Gastroenterology 12/30/21 Tammy Greenberg MD [address] [place] [address] [address] [place], [place] [phone] Cardiovascular Disease 02/24/22 Genaro Palacios MD [address] [facility] [address] [place], [place] [address] Assigned Heart and Vascular Provider 03/28/22 Claude Rucker MD [address] [place] [address] [phone] Assigned Surgical Provider 04/11/22 Delroy Gore APRN [facility] [address] [place] [address] [phone] Assigned Nephrology Provider 04/25/22 documented as of this encounter
--- OUTSIDE RECORDS SUMMARY | 2023-03-14 02:38 | XMS_ITS | Encounter Summary ---
Author Name Unknown Organization [facility] Address [address] [place] [address]. [place] [address] Care Team Providers Care Collar Sewer Name Role Phone Chapin Khan MD Unavailable [phone] Danya Barraza [facility] Unavailable Maximino Arredondo MD Primary Care Provider [phone] Jeanette French RN Unavailable [phone] Tammy Greenberg MD Unavailable [phone] Genaro Palacios MD Unavailable [phone] Claude Rucker MD Unavailable [phone] Delroy Gore APRN GARBAGE COLLECTOR DRIVER Unavailable [phone] Reason for Visit * Reason Comments Skin Check 6 month [facility] Encounter Details Date Type Department Care Team (Late st Contact Info) Description 09/14/2022 1:15 PM CDT Office Visit [address] [phone] Yolanda Wilkerson, PAAnhC [address] [place] [phone] Prurigo nodularis (Primary Dx); Xerosis cutis; SK (seborrheic keratosis); Multiple benign nevi; Seborrheic keratoses, inflamed; History of basal cell carcinoma Social History Tobacco Use Types Packs/Day Years Used Date Smoking Tobacco: Every Day Cigarettes 0.3 50 Last attempted to quit: 12/04/2019 Smokeless Tobacco: Never Tobacco Cessation:Ready to Q uit: Not Asked; Counseling Given: No Alcohol Use Standard Drinks/Week Comments Yes 0 [...] Recorded In the last 10 days, have lilly u been in contact with someone who was confirmed or suspected to have Coronavirus/COVID-19? No / Unsure 09/14/2022 12:37 PM CDT documented as of this encounter Patient Instructions * Patient Instructions* Ladonna Sigala, COMMISSIONS ANALYST - 09/14/2022 1:15 PM CDT Images from the original note were not included. Patient Education Proper skin care from [facility]: -Eliminate harsh soaps as they strip the natural oils from the skin, often resulting in dry itchy skin ( i.e. Dial, Zest, Italian Spring) -Use mild soaps such as Cetaphil or Dove Sensitive Skin in the shower. You do not need to use soap on arms, legs, and trunk every time you shower unless visibly soiled. -Avoid hot or cold showers. -After showering, lightly dry off and apply moisturizing within 2-3 minutes. This will help trap moisture in the skin. -Aggressive use of a moisturizer at least 1-2 times a day to the entire body (including -Vanicream,Cetaphil, Aquaphor or Cerave) and moisturize hands after every washing. -We recommend using moisturizers that come in a tub that needs to be scooped out, not a pump. This has more of an oil base. It will hold moisture in your skin much better than a water base moisturizer. The above recommended are non- pore clogging. Wear a sunscreen with at least SPF 30 on your face, ears, neck and V of the chest daily. Wear sunscreen on other areas of the body if those areas are exposed to the sun throughout the day. Sunscreenscan contain physical and/or chemical blockers. Physical blockers are less likely to clog pores, these include zinc oxide and titanium dioxide. Reapply every two hour and after swimming. Sunscreen examples: https://www.ewg.org/sunscreen/ UV radiation UVA radiation remains constant throughout the day and throughout the year. It is a longer wavelength than UVB and therefore penetrates deeper into the skin leading to immediate and delayed tanning, photoaging, and skin cancer. 70-80% of UVA and UVB radiation occurs between the hours of 10am-2pm. UVB radiation UVB radiation causes the most harmful effects and is more significant during the summer months. However, snow and ice can reflect UVB radiation leading to skin damage during the winter months as well. UVB radiation is responsible for tanning, burning, inflammation, delayed erythema (pinkness), pigmentation (brown spots), and skin cancer. I recommend self monthly full body exams and yearly full body exams with a dermatology provider. Ifyou develop a new or changing lesion please follow up for examination. Most skin cancers are pink and scaly or pink and pearly. However, we do see blue/brown/black skin cancers. Consider the ABCDEs of melanoma when giving yourself your monthly full body exam ( don't forget the groin, buttocks, feet, toes, etc). A-asymmetry, B-borders, C-color, D-diameter, E-elevation or evolving. If you see any of these changes please follow up in clinic. If you cannot see your back I recommend purchasing a hand held mirror to use with a larger wall mirror. Checking for Skin Cancer You can find cancer early by checking your skin each month. There are 3 kinds of skin cancer. They are melanoma, basal cell carcinoma, and squamous cell carcinoma. Doing monthly skin checks is the best way to find new yusuf or skin changes. Follow the instructions below for checking your skin. The ABCDEs of checking moles for melanoma Check your moles or growths for signs of melanoma using ABCDE: Asymmetry: the sides of the mole or growth don???t match Border: the edges are ragged, notched, or blurred Color: the color within the mole or growth varies Diameter: the mole or growth is larger than 6 mm (size of a pencil eraser) Evolving: the size, shape, or color of the mole or growth is changing (evolving is not shown in theimages below) Checking for other types of skin cancer Basal cell carcinoma or squamous cell carcinoma have symptoms such as: A spot or mole that looks different from all other yusuf on your skin Changes in how an area feels, such as itching, tenderness, or pain Changes in the skin's surface, such as oozing, bleeding, or scaliness A sore that does not heal New swelling or redness beyond the border of a mole Who???s at risk? Anyone can get skin cancer. But you are at greater risk if you have: Fair skin, light-colored hair, or light-colored eyes Many moles or abnormal moles on your skin A history of sunburns from sunlight or tanning beds A family history of skin cancer A history of exposure to radiation or chemicals A weakened immune system If you have had skin cancer in the past, you are at risk for recurring skin cancer. How to check your skin Do your monthly skin checkups in front of a full-length mirror. Check all parts of your body, including your: Head (ears, face, neck, and scalp) Torso (front, back, and sides) Arms (tops, undersides, upper, and lower armpits) Hands (palms, backs, and fingers, including under the nails) Buttocks and genitals Legs (front, back, and sides) Feet (tops, soles, toes, including under the nails, and between toes) If you have a lot of moles, take digital photos of them each month. Make sure to take photos both up close and from a distance. These can help you see if any moles shredding machine knife changer time. Most skin changes are not cancer. But if you see any changes in your skin, call your doctor right away. Only he or she can diagnose a problem. If you have skin cancer, seeing your doctor can be the first step toward getting the treatment that could save your life. [employer] last reviewed this educational content on 05/16/2018 ?? [phone] [employer]. [address] [place] [address]. All rights reserved. This information is not intended as a substitute for professional medical care. Always follow your healthcare professional's instructions. When should I call my doctor? If you are worsening or not improving, please, contact us or seek urgent care as noted below. Who should I call with questions (adults)? [facility] (adult and pediatric): [phone] [facility] (adult): [phone] [facility] ([facility] and [place]) [phone] For urgent needs outside of business hours call the [facility] at [phone] and ask for thedermatology resident electron gun inspector to be paged If this is a medical emergency and you are unable to reach an ER, Call [phone] If you need a prescription refill, please contact your pharmacy. Refills are approved or denied by our Physicians during normal business hours, Wednesday through Fridays Per office policy, refills will not be granted if you have not been seen within the past year (or sooner depending on your child's condition) documented in this encounter Progress Notes * Yolanda Wilkerson PA-C - 09/14/2022 1:15 PM CDT [facility] Dermatology Note Encounter Date: Sep 14, 2022 Office Visit Dermatology Problem List: # Transplant candidate (renal) - on dialysis # Hx NMSC - BCC - L proximal forearm - s/p excision 12/19/21 Assessment & Plan: # Hx BCC - L forearm, NERD - Sunscreen: Apply 20 minutes prior to going outdoors and reapply every two hours, when wet or sweating. We recommend using an SPF 30 or higher, and to use one that is water resistant. 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 Vertex scalp x1 - Cryotherapy performed today, see procedure note below. Procedures Performed: - Cryotherapy procedure note, location(s): vertex scalp. After verbal consent and discussion of risks and benefits including, but not limited to, dyspigmentation/scar, blister, and pain, 1 lesion(s) was(were) treated with 1-2 mm freeze border for 1-2 cycles with liquid nitrogen. Post cryotherapy ins tructions were provided. Follow-up: 6 month(s) in-person, or earlier for new or changing lesions Staff: All risks, benefits and alternatives were discussed with patient. Patient is in agreement and understands the assessment and plan. All questions were answered. Yolanda Wilkerson PA-C, MPAS [facility] [place]: , [facility]: , [facility]: , CC: Skin Check (6 month [facility]) HPI: Mr. Moisés Whelan is a 62 year old male who presents today as a return patient for FBSE. Hx of BCC on the forearm. He notes a very irritated spot on the head he would like treated. Also noted itching on back, but this has been tolerable lately with use of baby oil. Planning on kidney transplant hopefully soon. Last seen by Dr. Rucker on 04/03/22. Patient is otherwise feeling well, without additional concerns. Labs: none Physical Exam: Vitals: There were no vitals taken for this visit. SKIN: Full skin, which includes the head/face, both arms, chest, back, abdomen,both legs, genitaliaand/or groin buttocks, digits and/or nails, was examined. - Tafoya's skin type II, <100 nevi - patient has jaundice appearance - There are dome shaped bright red papules on the trunk. - Multiple regular brown pigmented macules and papules are identified on the trunk and extremities. - Scattered brown macules on sun exposed areas. - There are waxy stuck on aguirre to brown papules on the trunk. - There is a aguirre to brown waxy stuck on papule with surrounding erythema on the vertex scalp x1 . - There is no erythema, telangectasias, nodularity, or pigmentation on the L forearm. - skin is dry on exam, richie back and forearms - No other lesions of concern on areas examined. Medications: Current Outpatient Medications Medication amLODIPine (NORVASC) 10 MG tablet calcium acetate (CALPHRON) 667 MG TABS tablet carvedilol (COREG) 12.5 MG tablet folic acid (FOLVITE) 1 MG tablet lidocaine-prilocaine (EMLA) 2.5-2.5 % external cream multivitamin RENAL (MULTIVITAMIN RENAL) 1 MG capsule omeprazole (PRILOSEC) [address] capsule simvastatin (ZOCOR) 20 MG tablet ustekinumab (STELARA) 90 MG/ML calcitRIOL (ROCALTROL) 0.5 MCG capsule Current Facility-Administered Medications Medication lidocaine 1% with EPINEPHrine 1:100,000 injection 3 mL Past Medical/Surgical History: Patient Active Problem List Diagnosis Acquired cyst of kidney ESRD (end stage renal disease) (H) Organ transplant candidate PAF (paroxysmal atrial fibrillation) (H) Benign essential hypertension Crohn's disease of large intestine (H) IPMN (intraductal papillary mucinous neoplasm) Status post repair of arteriovenous fistula Aortic dissection, abdominal (H) Current smoker History of basal cell carcinoma CAD (coronary artery disease) Anemia Past Medical History: Diagnosis Date Aortic dissection [...] infarction) (H) PAF (paroxysmal atrial fibrillation) (H) documented in this encounter Plan of Treatment Upcoming Encounters Date Type Department Care Team (Late st Contact Info) Description 04/01/2023 1:15 PM APPEALS ASSISTANT Office Visit [address] [phone] Yolanda Wilkerson PA-C [address] [place] [address] [phone] 07/13/2023 8:00 AM CDT Virtual Visit [facility] [address] [place] [phone] Deuce Majano PA-C [address] [place] [address] [phone] documented as of this encounter Visit Diagnoses Diagnosis Prurigo nodularis- Primary Lichenification and lichen simplex chronicus Xerosis cutis Other specified disease of sebaceous glands SK (seborrheic keratosis) Other seborrheic keratosis Multiple benign nevi Benign neoplasm of skin, site unspecified Seborrheic keratoses, inflamed History of basal cell carcinoma Personal history of other malignant neoplasm of skin documented in this encounter Care Teams Collar Sewer Relationship Specialty Start Date End Date Arnulfo, Maximino J, MD [address] [place], [place] [address]ra [place] JOLENE Garcia [phone] PCP - General Family Medicine 04/02/21 Chapin Khan MD [address] [place] [address] [phone] Urology 05/10/20 Danya Barraza, [facility] [address] [place] [address] [phone] Pharmacist Pharmacist Rodeo Performer 12/25/20 Jeanette French, RN [address] [place] [address] [phone] Specialty Courtesy Clerk Gastroenterology 12/30/21 Tammy Greenberg MD [address] [place] [address] [phone] Cardiovascular Disease 02/24/22 Genaro Palacios MD [address] [facility] [address] [place] [phone] Assigned Heart and Vascular Provider 03/28/22 Claude Rucker MD [address] [place] [address] [phone] Assigned Surgical Provider 04/11/22 Delroy Gore APRN GARBAGE COLLECTOR DRIVER [address] [place] [address] [phone] Assigned Nephrology Provider 04/25/22 documented as of this encounter
--- OUTSIDE RECORDS SUMMARY | 2023-03-14 02:38 | XMS_ITS | Encounter Summary ---
Author Name Unknown Organization [place] Address [address] [place] [address]. [place] [address] Care Team Providers Care Vice President Mission Integration Name Role Phone Chapin Khan MD Unavailable [phone] Brionna Covarrubias RN Unavailable [phone] Danya Barraza [facility] Unavailable [phone] Maximino Arredondo MD Primary Care Provider [phone] Jeanette French RN Unavailable [phone] Tammy Greenberg MD Unavailable [phone] Genaro Palacios MD Unavailable [phone] Claude Rucker MD Unavailable [phone] Delroy Gore APRN COKE LOAD[employer] Unavailable [phone] Danya Barraza [facility] Unavailable [phone] Deuce Majano PA-C Unavailable [phone] Chapin Ruvalcaba MD Unavailable [phone] Encounter Details Date Type Department Care Team (Late st Contact Info) Description 08/17/2022 Orders Only INTERFACED REPORT Outside, Provider Social History Tobacco Use Types [...] suspected to have Coronavirus/COVID-19? No / Unsure 08/10/2022 1:39 PM CDT documented as of this encounter Plan of Treatment Upcoming Encounters Date Type Department Care Team (Late st Contact Info) Description 04/01/2023 1:15 PM ENERGY SYSTEMS LABORATORY DIRECTOR Office Visit [address] [address] Yolanda Wilkerson PA-C [address] [place] [address] [phone] 07/13/2023 8:00 AM CDT Virtual Visit [facility] [address] [phone] Deuce Majano PA-C [address] [place] [address] [phone] documented as of this encounter Procedures Procedure Name Priority Date/Time Associated Diagnosis Comments HLA RESULT REPORT 08/17/2022 1:53 PM CDT HLA RESULT REPORT 08/17/2022 1:53 PM CDT documented in this encounter Results * HLA RESULT REPORT (08/17/2022 1:53 PM CDT) Provider Outside LAB - IMMUNOLOGY ORD ERABLES * HLA RESULT REPORT (08/17/2022 1:53 PM CDT) Provider Outside LAB - IMMUNOLOGY ORD ERABLES documented in this encounter Visit Diagnoses Not on filedocumented in this encounter Additional Health Concerns Infection Onset Date Last Indicated Resolved Time Rule Out C-difficile 03/10/2023 03/10/2023 024 5:57 PM ENERGY SYSTEMS LABORATORY DIRECTOR documented as of this encounter Care Teams Vice President Mission Integration Relationship Specialty Start Date End Date Maximino Arredondo MD [address] [place] [phone] PCP - General Family Medicine 04/02/21 Chapin Khan MD [address] [place] [address] [phone] Urology 05/10/20 Brionna Covarrubias, RN Registered Nurse Oncology 05/10/20 09/01/22 Danya Barraza, [facility] [address] [place] [address] [phone] Pharmacist Pharmacist Marketing Project Manager 12/25/20 Jeanette French, RN [address] [place] [address] Specialty Director Of Mobile Marketing Gastroenterology 12/30/21 Tammy Greenberg MD [address] [place] [address] [address] [place], [place] [phone] Cardiovascular Disease 02/24/22 Genaro Palacios MD [address] [place] [address] Assigned Heart and Vascular Provider 03/28/22 Claude Rucker MD [address] [place], [place] [phone] Assigned Surgical Provider 04/11/22 Delroy Gore APRN [facility] [address] [place] [address] Assigned Nephrology Provider 04/25/22 Danya Barraza [facility] [address] [place] [address] Assigned MTM Pharmacist 12/05/22 Deuce Majano PA-C 9 [place] [address] Assigned Gastroenterology Provider 01/23/23 02/05/23 Chapin Ruvalcaba MD [address] [address] Assigned Gastroenterology Provider 02/06/23 documented as of this encounter
--- OUTSIDE RECORDS SUMMARY | 2023-03-14 02:38 | XMS_ITS | Encounter Summary ---
Author Name Unknown Organization [place] Address [address] [place] [address]. [place] [address] Care Team Providers Care Academic Affairs Director Name Role Phone Chapin Khan MD Unavailable Brionna Covarrubias RN Unavailable [phone] Danya Barraza [facility] Unavailable Maximino Arredondo MD Primary Care Provider Jeanette French RN Unavailable Tammy Greenberg MD Unavailable [phone] Genaro Palacios MD Unavailable [phone] Claude Rucker MD Unavailable [phone] Delroy Gore APRN [facility] Unavailable Reason for Visit * Reason Onset Date Comments Orders 08/27/2022 Colonoscopy orde r needs to be in-patient. Encounter Details Date Type Department Care Team (Late st Contact Info) Description 08/27/2022 Telephone [facility] [address] [place] [address] Romi Fairbanks MD [address] [address] Orders (Colonoscopy order needs to be in-patient.) Social History Tobacco Use Types Packs/Day Years [...] PM CDT documented as of this encounter Miscellaneous Notes * Telephone Encounter - Jeanette French RN - 08/31/2022 11:31 AM CDT Called patient to explain inpatient admission for an elective colonoscopy is not a viable option. Offered to connect with social work to coordinate a Medicab to and from the procedure. Patient would need someone to stay with him for 6 hours after moderate sedation. He states he does not have someone who could be with him post-procedure. Will notify Dr. Fairbanks of barriers to completing colonoscopy. * Telephone Encounter - Roxanna Contreras - 08/27/2022 3:06 PM CDT [facility] Call Center Phone Message May a detailed message be left on voicemail: yes Reason for Call: Other: Patient called and has he doens't have any ride to the colonoscopy procedure, he needs to have the order changed to an IN PATIENT colonocopsy order, instead of an out patient. Action Taken: Message routed to: [facility] Travel Screening: Not Applicable documented in this encounter Plan of Treatment Upcoming Encounters Date Type Department Care Team (Late st Contact Info) Description 04/01/2023 1:15 PM REGIONAL COMPANY TRUCK DRIVER Office Visit [address] [phone] Yolanda Wilkerson PA-C [address] [place] [address] [phone] 07/13/2023 8:00 AM CDT Virtual Visit [facility] [address] 4th [place] [phone] Deuce Majano PA-C [address] [place] [address] documented as of this encounter Visit Diagnoses Not on filedocumented in this encounter Care Teams Academic Affairs Director Relationship Specialty Start Date End Date Maximino Arredondo MD [address] [place] [address] PCP - General Family Medicine 04/02/21 Chapin Khan MD [address] [place] [address] Urology 05/10/20 Brionna Covarrubias, RN Registered Nurse Oncology 05/10/20 09/01/22 Danya Barraza, [facility] [address] [place] [address] [phone] Pharmacist Pharmacist Substance Abuse Specialist 12/25/20 Jeanette French, RN [address] [place] [address] Specialty Food Service Team Member Gastroenterology 12/30/21 Tammy Greenberg MD [address] [place] [address] [address] [place], [place] [phone] Cardiovascular Disease 02/24/22 Genaro Palacios MD [address] [facility] [place] [address] Assigned Heart and Vascular Provider 03/28/22 Claude Rucker MD [address] [place] [address] [phone] Assigned Surgical Provider 04/11/22 Delroy Gore APRN BOAT FUELER [address] [place], [place] [address] Assigned Nephrology Provider 04/25/22 documented as of this encounter
--- OUTSIDE RECORDS SUMMARY | 2023-03-14 02:38 | XMS_ITS | Encounter Summary ---
Author Name Unknown Organization [place] Address [address] [place] [address]. [place] [address] Care Team Providers Care Office Machine Servicer Apprentice Name Role Phone Chapin Khan MD Unavailable [phone] Danya Barraza [facility] Unavailable Maximino Arredondo MD Primary Care Provider [phone] Vcítor French RN Unavailable [phone] Tammy Greenberg MD Unavailable [phone] Genaro Palacios MD Unavailable [phone] Claude Rucker MD Unavailable [phone] Delroy Gore APRN [facility] Unavailable Reason for Visit * Reason Onset Date Comments CRP 09/18/2022 Hemoglobin 7.2 09/18/2022 Encounter Details Date Type Department Care Team (Latest Contact Info) Description 09/18/2022 [facility] Medical Advice [facility] [address] [place] [address] Víctor French, RN [address] [place] [address] CRP; Hemoglobin 7.2 Social History Tobacco Use Types Packs/Day Years [...] suspected to have Coronavirus/COVID-19? No / Unsure 09/22/2022 6:53 AM CDT documented as of this encounter Miscellaneous Notes * Telephone Encounter - Víctor French RN - 09/23/2022 11:33 AM CDT Received notification from lab of critical hemoglobin 7.2. Patient had dialysis this morning and was told his hemoglobin was 11.0. Reported results to Dr. Raman Marr. Plan for iron studies, ferritin, B12, and folate. Consider iron infusions. Symptoms are stable; will hold off on blood transfusion at this time. Plan to recheckhemoglobin next week. * Telephone Encounter - Víctor French RN - 09/21/2022 2:30 PM CDT Standing lab orders renewed. * Addendum Note - Víctor French RN - 09/18/2022 5:58 PM CDTAddended by: VÍCTOR FRENCH on: 09/23/2022 01:31 PM Modules accepted: Orders documented in this encounter Plan of Treatment Upcoming Encounters Date Type Department Care Team (Late st Contact Info) Description 04/01/2023 1:15 PM RESTORATIVE REHAB AIDE Office Visit [address] [phone] Yolanda Wilkerson PA-C [address] [place] [phone] 07/13/2023 8:00 AM CDT Virtual Visit [facility] [address] 4[address] [place] [address] Deuce Majano PA-C [address] [place] [address] [phone] Scheduled Orders Name Type Priority Associated Diagnoses Orde r Schedule CBC with Platelets & Differential Lab Panel Routine Crohn's disease of large intestine (H) every 3 months for 6 Occurrences starting 09/21/2022 until 09/22/2023, 3 completed CRP inflammation Lab Routine Crohn's disease of large intestine (H) every 3 months for 6 Occurrences starting 09/21/2022 until 09/22/2023, 3 completed Comprehensive metabolic panel Lab Routine Crohn's disease of large intestine (H) every 3 months for 6 Occurrences starting 09/21/2022 until 09/22/2023, 3 completed Erythrocyte sedimentation rate auto Lab Routine Crohn's disease of large intestine (H) every 3 months for 6 Occurrences starting 09/21/2022 until 09/22/2023, 3 completed documented as of this encounter Results * (ABNORMAL) Erythrocyte sedimentation rate auto (03/06/2023 10:28 AM RESTORATIVE REHAB AIDE) Erythrocyte Sedimentation Rate 64(H) 0 - 20 mm/hr 03/06/2023 10:46 AM RESTORATIVE REHAB AIDE [facility] Blood BLOOD SPECIMEN / Unknown Venipuncture / Unknown 03/06/2023 10:28 AM RESTORATIVE REHAB AIDE 03/06/2023 10:28 AM RESTORATIVE REHAB AIDE Romi Fairbanks MD LAB - BLOOD ORDERABL ES LABORATORY [facility] [address] [facility] (no room number, 1st floor of clinic) [place] [address], [facility] [phone] * (ABNORMAL) Comprehensive metabolic panel (03/06/2023 10:28 AM RESTORATIVE REHAB AIDE) [facility] Sodium 139 135 - 145 mmol/L 03/06/2023 6:03 PM RESTORATIVE REHAB AIDE [facility] Comment:Reference intervals for this test were updated on 11/10/2022 to more accurately reflect our healthy population. There may be differences in the flagging of prior results with similar values performed with this method. Interpretation of those prior results can be made in the context of the updated reference intervals. Potassium 3.8 3.4 - 5.3 mmol/L 03/06/2023 6:03 PM RESTORATIVE REHAB AIDE [facility] Carbon Dioxide (CO2) 26 22 - 29 mmol/L 03/06/2023 6:03 PM RESTORATIVE REHAB AIDE [facility] Anion Gap 12 7 - 15 mmol/L 03/06/2023 6:03 PM RESTORATIVE REHAB AIDE [facility] Urea Nitrogen 26.1(H) 8.0 - 23.0 mg/dL 03/06/2023 6:03 PM RESTORATIVE REHAB AIDE [facility] Creatinine 5.88(H) 0.67 - 1.17 mg/dL 03/06/2023 6:03 PM RESTORATIVE REHAB AIDE [facility] GFR Estimate 10(L) >60 mL/min/1. 73m2 03/06/2023 6:03 PM RESTORATIVE REHAB AIDE [facility] Calcium 8.9 8.8 - 10.2 mg/dL 03/06/2023 6:03 PM RESTORATIVE REHAB AIDE [facility] Chloride 101 98 - 107 mmol/L 03/06/2023 6:03 PM RESTORATIVE REHAB AIDE [facility] Glucose 129(H) 70 - 99 mg/dL 03/06/2023 6:03 PM RESTORATIVE REHAB AIDE [facility] Alkaline Phosphatase 119 40 - 150 U/L 03/06/2023 6:03 PM RESTORATIVE REHAB AIDE [facility] Comment:Reference intervals for this test were updated on 12/29/2022 to more accurately reflect our healthy population. There may be differences in the flagging of prior results with similar values performed with this method. Interpretation of those prior results can be made in the context of the updated reference intervals. AST 36 0 - 45 U/L 03/06/2023 6:03 PM RESTORATIVE REHAB AIDE [facility] Comment:Reference intervals for this test were updated on 07/27/2022 to more accurately reflect our healthy population. There may be differences in the flagging of prior results with similar values performed with this method. Interpretation of those prior results can be made in the context of the updated reference intervals. ALT 26 0 - 70 U/L 03/06/2023 6:03 PM RESTORATIVE REHAB AIDE [facility] Comment:Reference intervals for this test were updated on 07/27/2022 to more accurately reflect our healthy population. There may be differences in the flagging of prior results with similar values performed with this method. Interpretation of those prior results can be made in the context of the updated reference intervals. Protein Total 6.1(L) 6.4 - 8.3 g/dL 03/06/2023 6:03 PM RESTORATIVE REHAB AIDE [facility] Albumin 3.2(L) 3.5 - 5.2 g/dL 03/06/2023 6:03 PM RESTORATIVE REHAB AIDE [facility] Bilirubin Total 0.6 <=1.2 mg/dL 03/06/2023 6:03 PM RESTORATIVE REHAB AIDE [facility] Blood BLOOD SPECIMEN / Unknown Venipuncture / Unknown 03/06/2023 10:28 AM RESTORATIVE REHAB AIDE 03/06/2023 10:28 AM RESTORATIVE REHAB AIDE Romi Fairbanks MD LAB - BLOOD ORDERABL ES [facility] [address] [facility], [address] [place] [address], [facility] [phone] * (ABNORMAL) CRP inflammation (03/06/2023 10:28 AM RESTORATIVE REHAB AIDE) CRP Inflammation 68.80(H) <5.00 mg/L 03/06/2023 6:03 PM RESTORATIVE REHAB AIDE [facility] Blood BLOOD SPECIMEN / Unknown Venipuncture / Unknown 03/06/2023 10:28 AM RESTORATIVE REHAB AIDE 03/06/2023 10:28 AM RESTORATIVE REHAB AIDE Romi Fairbanks MD LAB - BLOOD ORDERABL ES U LABORATORY [facility] [place] [facility] [address] [facility], [address] [place] [address], [facility] [phone] * (ABNORMAL) Folate (12/08/2022 8:27 AM CDT) Folic Acid >40.0(H) 4.6 - 34.8 ng/mL 12/08/2022 5:09 PM CDT [facility] Blood BLOOD SPECIMEN / Unknown Venipuncture / Unknown 12/08/2022 8:27 AM CDT 12/08/2022 8:27 AM CDT Romi Fairbanks MD LAB - BLOOD ORDERABL ES U LAB[facility]ATORY [facility] [place] [facility] [address] [facility], [address] [place] [address], [facility] [phone] * (ABNORMAL) Erythrocyte sedimentation rate auto (12/08/2022 8:27 AM CDT) Erythrocyte Sedimentation Rate 65(H) 0 - 20 mm/hr 12/08/2022 9:07 AM CDT LABORATORY Blood BLOOD SPECIMEN / Unknown Venipuncture / Unknown 12/08/2022 8:27 AM CDT 12/08/2022 8:27 AM CDT Narrative [facility] - 12/08/2022 9:07 AM CDT Repeated 2nd times as 57 Romi Fairbanks MD LAB - BLOOD ORDERABL ES LABORATORY [facility] [address] [facility] (no room number, 1st floor of clinic) [place] [address], [place] [phone] * (ABNORMAL) Comprehensive metabolic panel (12/08/2022 8:27 [...] Fairbanks MD LAB - BLOOD ORDERABL ES Performing Organization Address City/[facility] Co de Phone Number U LABORATORY [facility] [place] [facility] [address] [facility], [address] [address], [facility] [phone] * (ABNORMAL) CRP inflammation (12/08/2022 8:27 AM CDT) Pathologist [facility] CRP Inflammation 25.50(H) <5.00 mg/L 12/08/2022 7:33 PM CDT [facility] Blood BLOOD SPECIMEN / Unknown Venipuncture / Unknown 12/08/2022 8:27 AM CDT 12/08/2022 8:27 AM CDT Romi Fairbanks MD LAB - BLOOD ORDERABL ES [facility]ORY [facility] [place] [facility] [address] [facility], [address] [address], [facility] [phone] * Vitamin B12 (09/23/2022 9:35 AM CDT) Pathologist [facility] Vitamin B12 364 232 - 1,245 pg/mL 09/23/2022 3:55 PM CDT [facility] Blood BLOOD SPECIMEN / Unknown Venipuncture / Unknown 09/23/2022 9:35 AM CDT 09/23/2022 9:35 AM CDT Romi Fairbanks MD LAB - BLOOD ORDERABL ES U LABORATORY [facility] [place] [facility] [address] [facility], [address] [place] [address], [facility] [phone] * (ABNORMAL) Ferritin (09/23/2022 9:35 AM CDT) Ferritin 1,455(H) 31 - 409 ng/mL 09/23/2022 3:55 PM CDT [facility] Blood BLOOD SPECIMEN / Unknown Venipuncture / Unknown 09/23/2022 9:35 AM CDT 09/23/2022 9:35 AM CDT Romi Fairbanks MD LAB - BLOOD ORDERABL ES Performing Organization Address City/[facility]/ZIP Co de Phone Number U LABORATORY [facility] [place] [facility] [address] [facility], [address] [place] [address], [place] [phone] * (ABNORMAL) Iron and iron binding capacity (09/23/2022 9:35 AM CDT) Pathologist [facility] Iron 58(L) 61 - 157 ug/dL 09/23/2022 3:13 PM CDT [facility] Iron Binding Capacity 265 240 - 430 ug/dL 09/23/2022 3:13 PM CDT [facility] Iron Sat Index 22 15 - 46 % 09/23/2022 3:13 PM CDT [facility] Blood BLOOD SPECIMEN / Unknown Venipuncture / Unknown 09/23/2022 9:35 AM CDT 09/23/2022 9:35 AM CDT Romi Fairbanks MD LAB - BLOOD ORDERABL ES U LABORATORY [facility] [place] [facility] [address] [facility], [address] [place] [address], [facility] [phone] * (ABNORMAL) Erythrocyte sedimentation rate auto (09/23/2022 9:35 AM CDT) Erythrocyte Sedimentation Rate 81(H) 0 - 20 mm/hr 09/23/2022 9:56 AM CDT LV LABORATORY Blood BLOOD SPECIMEN / Unknown Venipuncture / Unknown 09/23/2022 9:35 AM CDT 09/23/2022 9:35 AM CDT Romi Fairbanks MD LAB - BLOOD ORDERABL ES [facility] LABORATORY [facility] [address] [facility] Lab (no room number, 1st floor of clinic) [place] [address], [facility] [phone] * (ABNORMAL) Comprehensive metabolic panel (09/23/2022 9:35 AM CDT) Sodium 137 136 - 145 mmol/L 09/23/2022 3:13 PM CDT [facility] Potassium 3.5 3.4 - 5.3 mmol/L 09/23/2022 3:13 PM CDT [facility] Chloride 95(L) 98 - 107 mmol/L 09/23/2022 3:13 PM CDT [facility] Carbon Dioxide (CO2) 31(H) 22 - 29 mmol/L 09/23/2022 3:13 PM CDT [facility] Anion Gap 11 7 - 15 mmol/L 09/23/2022 3:13 PM CDT [facility] Urea Nitrogen 12.6 8.0 - 23.0 mg/dL 09/23/2022 3:13 PM CDT [facility] Creatinine 3.61(H) 0.67 - 1.17 mg/dL 09/23/2022 3:13 PM CDT [facility] Calcium 9.9 8.8 - 10.2 mg/dL 09/23/2022 3:13 PM CDT [facility] Glucose 146(H) 70 - 99 mg/dL 09/23/2022 3:13 PM CDT [facility] Alkaline Phosphatase 71 40 - 129 U/L 09/23/2022 3:13 PM CDT [facility] AST 26 0 - 45 U/L 09/23/2022 3:13 PM CDT [facility] Comment:Reference intervals for this test were updated on 07/27/2022 to more accurately reflect our healthy population. There may be differences in the flagging of prior results with similar values performed with this method. Interpretation of those prior results can be made in the context of the updated reference intervals. ALT 13 0 - 70 U/L 09/23/2022 3:13 PM CDT [facility] Comment:Reference intervals for this test were updated on 07/27/2022 to more accurately reflect our healthy population. There may be differences in the flagging of prior results with similar values performed with this method. Interpretation of those prior results can be made in the context of the updated reference intervals. Protein Total 6.8 6.4 - 8.3 g/dL 09/23/2022 3:13 PM CDT [facility] Albumin 4.0 3.5 - 5.2 g/dL 09/23/2022 3:13 PM CDT [facility] Bilirubin Total 0.8 <=1.2 mg/dL 09/23/2022 3:13 PM CDT [facility] GFR Estimate 18(L) >60 mL/min/1. 73m2 09/23/2022 3:13 PM CDT [facility] Blood BLOOD SPECIMEN / Unknown Venipuncture / Unknown 09/23/2022 9:35 AM CDT 09/23/2022 9:35 AM CDT Romi Fairbanks MD LAB - BLOOD ORDERABL ES [facility] LAB[facility]ATORY [facility] [place] [facility] [address] [facility] [address] [facility], [address] [place] [address], [facility] [phone] * (ABNORMAL) CRP inflammation (09/23/2022 9:35 AM CDT) CRP Inflammation 7.10(H) <5.00 mg/L 09/23/2022 3:13 PM CDT [facility] Blood BLOOD SPECIMEN / Unknown Venipuncture / Unknown 09/23/2022 9:35 AM CDT 09/23/2022 9:35 AM CDT Romi Fairbanks MD LAB - BLOOD ORDERABL ES [facility] LABORATORY [facility] [facility] [address] [facility] [address] [facility], [address] [place] [address], [facility] [phone] documented in this encounter Visit Diagnoses Diagnosis Crohn's disease of large intestine (H)- Primary Regional enteritis of large intestine documented in this encounter Care Teams Office Machine Servicer Apprentice Relationship Specialty Start Date End Date Maximino Arredondo MD [address] [place] [address] PCP - General Family Medicine 04/02/21 Chapin Khan MD [address] [place] [address] [phone] Urology 05/10/20 Danya Barraza, [facility] [address] [place] [address] [phone] Pharmacist Pharmacist Chief Building Inspector 12/25/20 Víctor French, RN [address] [place] [address] [phone] Specialty Channel Man Gastroenterology 12/30/21 Tammy Greenberg MD [address] [place] [address] [address] [place], [place] [phone] Cardiovascular Disease 02/24/22 Genaro Palacios MD [address] [facility] [place], [place] [address] Assigned Heart and Vascular Provider 03/28/22 Claude Rucker MD [address] [place] [address] [phone] Assigned Surgical Provider 04/11/22 Delroy Gore APRN RESAW CARRIAGE OPERATOR [address] [place] [address] Assigned Nephrology Provider 04/25/22 documented as of this encounter
--- OUTSIDE RECORDS SUMMARY | 2023-03-14 02:38 | XMS_ITS | Encounter Summary ---
Author Name Unknown Organization [place] Address [address] [place] [address]. [place] [address] Care Team Providers Care Car Tracer Name Role Phone Chapin Khan MD Unavailable [phone] Danya Barraza [facility] Unavailable [phone] Maximino Arredondo MD Primary Care Provider [phone] Jeanette French RN Unavailable [phone] Tammy Greenberg MD Unavailable [phone] Genaro Palacios MD Unavailable [phone] Claude Rucker MD Unavailable [phone] Delroy Gore APRN HUMAN RESOURCES OFFICE ASSISTANT Unavailable [phone] Reason for Referral * Diagnostic Imaging Ultrasound (Routine) - Pending Review Specialty Diagnoses / Procedures Referred By Contac t Referred To Contact Radiology. Diagnoses ESRD (end stage renal disease) on dialysis (H) Arteriovenous fistula (H24) Procedures US Ext Arterial Venous Dialys Acs Graft Genaro Palacios MD [address] [facility] [address] [facility] [place] [id number] Referral ID Status Reason Start Date Expiration Date V isits Requested Visits Authorized [id number] Pending Review 05/28/2022 05/28/2023 1 1 Reason for Visit * Diagnostic Imaging Ultrasound (Routine) - Pending Review Specialty Diagnoses / Procedures Referred By Sommer acevedo Referred To Contact Radiology. Diagnoses ESRD (end stage renal disease) on dialysis (H) Arteriovenous fistula (H24) Procedures US Ext Arterial Venous Dialys Acs Graft Genaro Palacios MD [address] [place] [id number] Referral ID Status Reason Start Date Expiration Date V isits Requested Visits Authorized [id number] Pending Review 05/28/2022 05/28/2023 1 1 Encounter Details Date Type Department Care Team (Latest Contact Info) Description 10/08/2022 7:05 AM CDT - 10/08/2022 11:59 PM CDT Hospital Encounter [facility] [address] [place] [address] Genaro Palacios MD [address] [place] [id number] ESRD (end stage renal disease) on dialysis (H); Arteriovenous fistula (H) Discharge Disposition: Home or Self Care Social [...] mg) subcutaneous every 4 weeks. 1 mL 3 07/10/2022 10/18/2022 documented as of this encounter Plan of Treatment Upcoming Encounters Date Type Department Care Team (Late st Contact Info) Description 04/01/2023 1:15 PM SALES BRANCH MANAGER Office Visit [address] [address] Yolanda Wilkerson PA-C [address] [place] [address] [phone] 07/13/2023 8:00 AM CDT Virtual Visit [facility] [address] [place] [phone] Deuce Majano PA-C [address] [place] [address] documented as of this encounter Procedures Procedure Name Priority Date/Time Associated Diagnosis Comments US EXTREMITY ARTERIAL VENOUS DIALYSIS ACCESS GRAFT Routine 10/08/2022 8:35 AM CDT ESRD (end stage renal disease) on dialysis (H) Arteriovenous fistula (H) documented in this encounter Results * US Ext Arterial Venous Dialys Acs Graft (10/08/2022 8:35 AM CDT) Anatomical Region Laterality Modality Vascular, Abdomen/Pelvis Ultraso und Impressions 10/08/2022 12:13 PM CDT IMPRESSION: 1. Patent left upper arm fistula. Good blood flow volume, improved from previous exam. 2. Mild stenosis at junction with PTFE graft in the upper arm with velocity of 548/292 cm/second and diameter of 3.4 mm. Remaining segments of fistula are widely patent. DAVID BAILEY MD Narrative 10/08/2022 12:13 PM CDT US EXTREMITY ARTERIAL VENOUS DIALYSIS ACCESS GRAFT 10/08/2022 8:35 AM HISTORY: 62-year-old patient with end-stage renal disease. Patient had revision with PTFE segment centrally in the subclavian to internal jugular vein segments on March 31, 2022. COMPARISON: May 28, 2022. TECHNIQUE: Color Doppler and spectral waveform analysis performed throughout the left upper extremity AV fistula. FINDINGS: Inflow brachial artery is patent ranging from 5.3-6.5 mm. AV anastomosis is patent. Total blood flow volume is 1519 mL/minute, previously 907 mL/minute. Velocities within the fistulized vein in the left upper arm range from 5.5-13.9 mm. Communication with the PTFE graft is 3.4 mm and 548/292 cm/second. PTFE segments range from 5.1-8.4 mm. Procedure Note David Bailey MD - 10/08/2022 US EXTREMITY ARTERIAL VENOUS DIALYSIS ACCESS GRAFT 10/08/2022 8:35 AM HISTORY: 62-year-old patient with end-stage renal disease. Patient had revision with PTFE segment centrally in the subclavian to internal jugular vein segments on March 31, 2022. COMPARISON: May 28, 2022. TECHNIQUE: Color Doppler and spectral waveform analysis performed throughout the left upper extremity AV fistula. FINDINGS: Inflow brachial artery is patent ranging from 5.3-6.5 mm. AV anastomosis is patent. Total blood flow volume is 1519 mL/minute, previously 907 mL/minute. Velocities within the fistulized vein in the left upper arm range from 5.5-13.9 mm. Communication with the PTFE graft is 3.4 mm and 548/292 cm/second. PTFE segments range from 5.1-8.4 mm. IMPRESSION: 1. Patent left upper arm fistula. Good blood flow volume, improved from previous exam. 2. Mild stenosis at junction with PTFE graft in the upper arm with velocity of 548/292 cm/second and diameter of 3.4 mm. Remaining segments of fistula are widely patent. DAVID BAILEY MD Genaro Palacios MD IMG US ORDERABL ES documented in this encounter Visit Diagnoses Diagnosis ESRD (end stage renal disease) on dialysis (H) End stage renal disease Arteriovenous fistula (H24) Arteriovenous fistula, acquired documented in this encounter Care Teams Car Tracer Relationship Specialty Start Date End Date Maxim[place] [address] PCP - General Family Medicine 04/02/21 Chapin Khan MD [address] [place] [address] Urology 05/10/20 Danya Barraza, [facility] [address] [place] [address] Pharmacist Pharmacist Brain Wave Technician 12/25/20 Jeanette French, RN [address] [place], [place] 9[address] Specialty Survey Worker Gastroenterology 12/30/21 Tammy Greenberg MD [address] [place] [address] [address] [place] [address] Cardiovascular Disease 02/24/22 Genaro Palacios MD [address] [address] Assigned Heart and Vascular Provider 03/28/22 Claude Rucker MD [address] [place] [address] Assigned Surgical Provider 04/11/22 Delroy Gore APRN HUMAN RESOURCES OFFICE ASSISTANT [address] [place] [address] Assigned Nephrology Provider 04/25/22 documented as of this encounter
--- OUTSIDE RECORDS SUMMARY | 2023-03-14 02:38 | XMS_ITS | Encounter Summary ---
Author Name Unknown Organization [facility] Address [address] [place] [address]. [place] [address] Care Team Providers Care Head Of Biology Name Role Phone Chapin Khan MD Unavailable [phone] Danya Barraza [facility] Unavailable [phone] Maximino Arredondo MD Primary Care Provider [phone] Jeanette French RN Unavailable [phone] Tammy Greenberg MD Unavailable [phone] Genaro Palacios MD Unavailable [phone] Claude Rucker MD Unavailable [phone] Delroy Gore APRN CELL INSTALLER Unavailable [phone] Encounter Details Date Type Department Care Team (Late st Contact Info) Description 09/23/2022 10:45 AM CDT Lab [facility] [address] [place] [address] Pre-transplant evaluation for kidney transplant; Crohn's disease of large intestine (H) Social [...] Contact Info) Description 04/01/2023 1:15 PM RESTORATIVE COORDINATOR Office Visit [address] [phone] Yolanda Wilkerson PA-C [address] [place] [address] [phone] 07/13/2023 8:00 AM CDT Virtual Visit [facility] [address] [phone] Deuce Majano PA-C [address] [place] [address] documented as of this encounter Procedures Procedure Name Priority Date/Time Associated Diagnosis Comments PRA SINGLE ANTIGEN IGG ANTIBODY Routine 09/23/2022 9:35 AM CDT Pre-transplant evaluation for kidney transplant HLA BERAT, CPRA Routine 09/23/2022 9:35 AM CDT Pre-transplant evaluation for kidney transplant HLA BERTA CLASS II, SINGLE ANTIGEN Routine 09/23/2022 9:35 AM CDT Pre-transplant evaluation for kidney transplant HLA BERTA CLASS I, SINGLE ANTIGEN Routine 09/23/2022 9:35 AM CDT Pre-transplant evaluation for kidney transplant CBC WITH PLATELETS AND DIFFERENTIAL Routine 09/23/2022 9:35 AM CDT Crohn's disease of large intestine (H) PRA SINGLE ANTIGEN IGG ANTIBODY Routine 09/23/2022 9:35 AM CDT Pre-transplant evaluation for kidney transplant CBC WITH PLATELETS & DIFFERENTIAL Routine 09/23/2022 9:35 AM CDT Crohn's disease of large intestine (H) IRON AND IRON BINDING CAPACITY Add-On 09/23/2022 9:35 AM CDT Crohn's disease of large intestine (H) FERRITIN Add-On 09/23/2022 9:35 AM CDT Crohn's disease of large intestine (H) ERYTHROCYTE SEDIMENTATION RATE AUTO Routine 09/23/2022 9:35 AM CDT Crohn's disease of large intestine (H) CRP INFLAMMATION Routine 09/23/2022 9:35 AM CDT Crohn's disease of large intestine (H) COMPREHENSIVE METABOLIC PANEL Routine 09/23/2022 9:35 AM CDT Crohn's disease of large intestine (H) VITAMIN B12 Add-On 09/23/2022 9:35 AM CDT Crohn's disease of large intestine (H) documented in this encounter Results * HLA Berta, CPRA (09/23/2022 9:35 AM CDT) PROTOCOL CUTOFF Plan A, 500 mfi cumulative 09/30/2022 8:45 AM CDT [facility] UNOS CPRA 23 09/30/2022 8:45 AM CDT [facility] UNACCEPTABLE ANTIGENS DR:7 09/30/2022 8:45 AM CDT [facility] Blood BLOOD SPECIMEN / Unknown Venipuncture / Unknown 09/23/2022 9:35 AM CDT 09/23/2022 9:35 AM CDT Gwendolyn Lennon MD LAB - IMMUNOLOGY ORD ERABLES [facility] Immunology/Histocomp atability [facility] [address] [facility], [address] [phone] * HLA Berta Class II, Single Antigen (09/23/2022 9:35 AM CDT) SA 2 TEST METHOD SA EDTA FCS 09/30/2022 8:45 AM CDT [facility] SA 2 CELL Class II 09/30/2022 8:45 AM CDT [facility] SA2 HI RISK BERTA None 09/30/2022 8:45 AM CDT [facility] SA2 MOD RISK BERTA None 09/30/2022 8:45 AM CDT [facility] SA 2 COMMENTS HLA PRA Test performed by modified testing procedure that may also include pretreatment of serum. Pretreatment may be the addition of calf serum, EDTA, and/or adsorption. High-risk, MFI > 3,000. Mod-risk, MFI 500-3,000. 09/30/2022 8:45 AM CDT [facility] Blood BLOOD SPECIMEN / Unknown Venipuncture / Unknown 09/23/2022 9:35 AM CDT 09/23/2022 9:35 AM CDT Gwendolyn Lennon MD LAB - IMMUNOLOGY ORD ERABLES [facility] Immunology/Histocomp atability [facility] 500 [facility] Building, Room [address] [phone] * HLA Berta Class I, Single Antigen (09/23/2022 9:35 AM CDT) SA 1 TEST METHOD SA EDTA FCS 09/30/2022 8:45 AM CDT [facility] SA 1 CELL Class I 09/30/2022 8:45 AM CDT [facility] SA1 HI RISK BERTA None 09/30/2022 8:45 AM CDT [facility] SA1 MOD RISK BERTA None 09/30/2022 8:45 AM CDT [facility] SA 1 COMMENTS HLA PRA Test performed by modified testing procedure that may also include pretreatment of serum. Pretreatment may be the addition of calf serum, EDTA, and/or adsorption. High-risk, MFI > 3,000. Mod-risk, MFI 500-3,000. 09/30/2022 8:45 AM CDT [facility] Blood BLOOD SPECIMEN / Unknown Venipuncture / Unknown 09/23/2022 9:35 AM CDT 09/23/2022 9:35 AM CDT Gwendolyn Lennon MD LAB - IMMUNOLOGY ORD ERABLES [facility] Immunology/Histocomp atability [facility] 500 [facility], Room [address] [phone] * (ABNORMAL) Ferritin (09/23/2022 9:35 AM CDT) Ferritin 1,455(H) 31 - 409 ng/mL 09/23/2022 3:55 PM CDT [facility] Blood BLOOD SPECIMEN / Unknown Venipuncture / Unknown 09/23/2022 9:35 AM CDT 09/23/2022 9:35 AM CDT Romi Fairbanks MD LAB - BLOOD ORDERABL ES LABORATORY [facility] [place] [facility] 500 [facility], [address] [address] [phone] * (ABNORMAL) Iron and iron binding capacity (09/23/2022 9:35 AM CDT) Iron 58(L) 61 - 157 ug/dL 09/23/2022 [...] LAB - BLOOD ORDERABL ES U LABORATORY [facility] [place] [facility] 500 [facility], [address] [address], [facility] [phone] * Vitamin B12 (09/23/2022 9:35 AM CDT) Vitamin B12 364 232 - 1,245 pg/mL 09/23/2022 3:55 PM CDT [facility] Blood BLOOD SPECIMEN / Unknown Venipuncture / Unknown 09/23/2022 9:35 AM CDT 09/23/2022 9:35 AM CDT Romi Fairbanks MD LAB - BLOOD ORDERABL ES U LABORATORY [facility] [place] [facility] [address] [facility], [address] [address], [facility] [phone] * (ABNORMAL) CBC with platelets and differential (09/23/2022 9:35 AM CDT) WBC Count 6.2 4.0 - 11.0 10e3/uL 09/23/2022 10:23 AM CDT [facility] RBC Count 2.03(L) 4.40 - 5.90 10e6/uL 09/23/2022 10:23 AM CDT [facility] Hemoglobin 7.2(LL) 13.3 - 17.7 g/dL 09/23/2022 10:23 AM CDT [facility] Hematocrit 23.0(L) 40.0 - 53.0 % 09/23/2022 10:23 AM CDT [facility] MCV 113(H) 78 - 100 fL 09/23/2022 10:23 AM CDT [facility] MCH 35.5(H) 26.5 - 33.0 pg 09/23/2022 10:23 AM CDT [facility] MCHC 31.3(L) 31.5 - 36.5 g/dL 09/23/2022 10:23 AM CDT [facility] RDW 18.0(H) 10.0 - 15.0 % 09/23/2022 10:23 AM CDT [facility] Platelet Count 100(L) 150 - 450 10e3/uL 09/23/2022 10:23 AM CDT [facility] % Neutrophils 80 % 09/23/2022 10:23 AM CDT [facility] % Lymphocytes 13 % 09/23/2022 10:23 AM CDT [facility] % Monocytes 6 % 09/23/2022 10:23 AM CDT [facility] % Eosinophils 1 % 09/23/2022 10:23 AM CDT [facility] % Basophils 1 % 09/23/2022 10:23 AM CDT [facility] % Immature Granulocytes 1 % 09/23/2022 10:23 AM CDT [facility] Absolute Neutrophils 5.0 1.6 - 8.3 10e3/uL 09/23/2022 10:23 AM CDT [facility] Absolute Lymphocytes 0.8 0.8 - 5.3 10e3/uL 09/23/2022 10:23 AM CDT [facility] Absolute Monocytes 0.3 0.0 - 1.3 10e3/uL 09/23/2022 10:23 AM CDT [facility] Absolute Eosinophils 0.0 0.0 - 0.7 10e3/uL 09/23/2022 10:23 AM CDT [facility] Absolute Basophils 0.1 0.0 - 0.2 10e3/uL 09/23/2022 10:23 AM CDT [facility] Absolute Immature Granulocytes 0.0 <=0.4 10e3/uL 09/23/2022 10:23 AM CDT [facility] Blood BLOOD SPECIMEN / Unknown Venipuncture / Unknown 09/23/2022 9:35 AM CDT 09/23/2022 9:35 AM CDT Narrative LABORATORY - 09/23/2022 10:23 AM CDT Romi Fairbanks MD LAB - BLOOD ORDERABL ES LABORATORY [facility] [address] [facility] (no room number, 1st floor of [facility]) [place] [address], [facility] [phone] * PRA Single Antigen IgG Antibody (09/23/2022 9:35 AM CDT) Blood BLOOD SPECIMEN / Unknown Venipuncture / Unknown 09/23/2022 9:35 AM CDT 09/23/2022 9:35 AM CDT Gwendolyn Lennon MD LAB - IMMUNOLOGY ORD ERABLES [facility] Immunology/Histocomp atability [facility] 500 [facility] [address] [facility], Room [address] [place] [address], [facility] [phone] * (ABNORMAL) Erythrocyte sedimentation rate auto (09/23/2022 9:35 AM CDT) Erythrocyte Sedimentation Rate 81(H) 0 - 20 mm/hr 09/23/2022 9:56 AM CDT LABORATORY Blood BLOOD SPECIMEN / Unknown Venipuncture / Unknown 09/23/2022 9:35 AM CDT 09/23/2022 9:35 AM CDT Romi Fairbanks MD LAB - BLOOD ORDERABL ES LABORATORY [facility] [address] [facility] (no room number, 1st floor of [facility]) [place] [address], [facility] [phone] * (ABNORMAL) Comprehensive metabolic panel (09/23/2022 9:35 [...] LAB - BLOOD ORDERABL ES U LABORATORY [facility] [place] [facility] 500 [facility], Room [address] [address], [facility] [phone] * (ABNORMAL) CRP inflammation (09/23/2022 9:35 AM CDT) CRP Inflammation 7.10(H) <5.00 mg/L 09/23/2022 3:13 PM CDT [facility] Blood BLOOD SPECIMEN / Unknown Venipuncture / Unknown 09/23/2022 9:35 AM CDT 09/23/2022 9:35 AM CDT oRmi Fairbanks MD LAB - BLOOD ORDERABL ES LABORATORY [facility] [address] [place] [address], [address] [address], [facility] [phone] documented in this encounter Visit Diagnoses Diagnosis Pre-transplant evaluation for kidney transplant Crohn's disease of large intestine (H) Regional enteritis of large intestine documented in this encounter Care Teams Head Of Biology Relationship Specialty Start Date End Date Maximino [place] [phone] PCP - General Family Medicine 04/02/21 Chapin Khan MD [address] [place] [address] Urology 05/10/20 Danya Barraza, [facility] [address] [place] [address] [phone] Pharmacist Pharmacist Editor Farm [employer] 12/25/20 Jeanette French, RN [address] [place], [place] [phone] Specialty Info Analyst Gastroenterology 12/30/21 Tammy Greenberg MD [address] [place] [address] [address] [place], [place] [phone] Cardiovascular Disease 02/24/22 Genaro Palacios MD [address] [facility] [address] [place] [address] Assigned Heart and Vascular Provider 03/28/22 Claude Rucker MD [address] [place] [address] [phone] Assigned Surgical Provider 04/11/22 Delroy Gore APRN [facility] [address] [place] [address] [phone] Assigned Nephrology Provider 04/25/22 documented as of this encounter
--- OUTSIDE RECORDS SUMMARY | 2023-03-14 02:38 | XMS_ITS | Encounter Summary ---
Author Name Unknown Organization [facility] Address [address] [place] [address]. [place] [address] Care Team Providers Care Tax Representative Name Role Phone Chapin Khan MD Unavailable [phone] Danya Barraza [facility] Unavailable [phone] Maximino Arredondo MD Primary Care Provider [phone] Jeanette French RN Unavailable [phone] Tammy Greenberg MD Unavailable [phone] Genaro Palacios MD Unavailable [phone] Claude Rucker MD Unavailable [phone] Delroy Gore APRN MEDICINE TECH Unavailable [phone] Encounter Details Date Type Department Care Team (Latest Contact Info) Description 10/01/2022 Travel Social History Tobacco Use Types Packs/Day [...] suspected to have Coronavirus/COVID-19? No / Unsure 10/01/2022 11:42 AM CDT documented as of this encounter Plan of Treatment Upcoming Encounters Date Type Department Care Team (Late st Contact Info) Description 04/01/2023 1:15 PM DRILLING FOREMAN Office Visit [address] [phone] Yolanda Wilkerson PA-C [address] [place] [address] [phone] 07/13/2023 8:00 AM CDT Virtual Visit [facility] [address] 4th [place] [phone] Deuce Majano PA-C [address] [place] [address] [phone] documented as of this encounter Visit Diagnoses Not on filedocumented in this encounter Care Teams Tax Representative Relationship Specialty Start Date End Date Maximino Arredondo MD [address] [place] [address] PCP - General Family Medicine 04/02/21 Chapin Khan MD [address] [place] [address] Urology 05/10/20 Danya Barraza, [facility] [address] [place] [address] [phone] Pharmacist Pharmacist Feed Blender 12/25/20 Jeanette French, [employer] [address] [place] [address] [phone] Specialty Bakery Team Member Gastroenterology 12/30/21 Tammy Greenberg MD [address] [place] [address] [address] [place] [address] Cardiovascular Disease 02/24/22 Genaro Palacios MD [address] 047[address] Assigned Heart and Vascular Provider 03/28/22 Claude Rucker MD [address] [place] [address] Assigned Surgical Provider 04/11/22 Delroy Gore APRN MEDICINE TECH [address] [place] [address] Assigned Nephrology Provider 04/25/22 documented as of this encounter
--- OUTSIDE RECORDS SUMMARY | 2023-03-14 02:38 | XMS_ITS | Encounter Summary ---
Author Name Unknown Organization [facility] Address [address] [place] [address]. [place] [address] Care Team Providers Care Die Keeper Name Role Phone Chapin Khan MD Unavailable [phone] Danya Barraza [facility] Unavailable [phone] Maximino Arredondo MD Primary Care Provider [phone] Jeanette French RN Unavailable [phone] Tammy Greenberg MD Unavailable [phone] Genaro Palacios MD Unavailable [phone] Claude Rucker MD Unavailable [phone] Delroy Gore APRN SUPERVISOR [employer] Unavailable [phone] Encounter Details Date Type Department Care Team (Latest Contact Info) Description 09/07/2022 Travel Social History Tobacco Use Types Packs/Day [...] suspected to have Coronavirus/COVID-19? No / Unsure 09/07/2022 10:20 AM CDT documented as of this encounter Plan of Treatment Upcoming Encounters Date Type Department Care Team (Late st Contact Info) Description 04/01/2023 1:15 PM ACCOUNTING ADVISORY SERVICES MANAGER Office Visit [address] [phone] Yolanda Wilkerson PA-C [address] [place] [address] [phone] 07/13/2023 8:00 AM CDT Virtual Visit [facility] [address] 4th [place] [phone] Deuce Majano PA-C [address] [place] [address] [phone] documented as of this encounter Visit Diagnoses Not on filedocumented in this encounter Care Teams Die Keeper Relationship Specialty Start Date End Date Maximino Arredondo MD [address] [place] [address] PCP - General Family Medicine 04/02/21 Chapin Khan MD [address] [place] [address] Urology 05/10/20 Danya Barraza, [facility] [address] [place] [address] [phone] Pharmacist Pharmacist Senior Publications Specialist 12/25/20 Jeanette French, [employer] [address] [place] [address] [phone] Specialty Aircraft Detail Draftsperson Gastroenterology 12/30/21 Tammy Greenberg MD [address] [place] [address] [address] [place] [address] Cardiovascular Disease 02/24/22 Genaro Palacios MD [address] [phone] Assigned Heart and Vascular Provider 03/28/22 Claude Rucker MD [address] [place] [address] Assigned Surgical Provider 04/11/22 Delroy Gore APRN SUPERVISOR [employer]OVAL [address] [place] [address] Assigned Nephrology Provider 04/25/22 documented as of this encounter
--- OUTSIDE RECORDS SUMMARY | 2023-03-14 02:38 | XMS_ITS | Encounter Summary ---
Author Name Unknown Organization [facility] Address [address] [place] [address]. [place] [address] Care Team Providers Care Truck Driver'S Offsider Name Role Phone Chapin Khan MD Unavailable [phone] Danya Barraza [facility] Unavailable [phone] Maximino Arredondo MD Primary Care Provider [phone] Jeanette French RN Unavailable [phone] Tammy Greenberg MD Unavailable [phone] Genaro Palacios MD Unavailable [phone] Claude Rucker MD Unavailable [phone] Delroy Gore APRN ANALOG CIRCUIT DESIGNER Unavailable [phone] Encounter Details Date Type Department Care Team (Latest Contact Info) Description 10/08/2022 Travel Social History Tobacco Use Types Packs/Day [...] st Contact Info) Description 04/01/2023 1:15 PM MAIL ROOM Office Visit [address] [phone] Yolanda Wilkerson PA-C [address] [place] [address] [phone] 07/13/2023 8:00 AM CDT Virtual Visit [facility] [address] 4th [place] [phone] Deuce Majano PA-C [address] [place] [address] [phone] documented as of this encounter Visit Diagnoses Not on filedocumented in this encounter Care Teams Truck Driver'S Offsider Relationship Specialty Start Date End Date Maximino Arredondo MD [address] [place] [address] PCP - General Family Medicine 04/02/21 Chapin Khan MD [address] [place] [address] Urology 05/10/20 Danya Barraza, [facility] [address] [place] [address] [phone] Pharmacist Pharmacist Morals Squad Police Officer 12/25/20 Jeanette French, FATOUMATA [address] [place] [address] [phone] Specialty Clam Dredger Gastroenterology 12/30/21 Tammy Greenberg MD [address] [place] [address] 508 [place] [address] Cardiovascular Disease 02/24/22 Genaro Palacios MD [address] [id number] Assigned Heart and Vascular Provider 03/28/22 Claude Rucker MD [address] [place] [address] Assigned Surgical Provider 04/11/22 Delroy Gore APRN ANALOG CIRCUIT DESIGNER [address] [place] [address] Assigned Nephrology Provider 04/25/22 documented as of this encounter
--- OUTSIDE RECORDS SUMMARY | 2023-03-14 02:38 | XMS_ITS | Encounter Summary ---
Author Name Unknown Organization [facility] Address [address] [place] [address]. [place] [address] Care Team Providers Care Kitchen Stewardess Name Role Phone Chapin Khan MD Unavailable [phone] Danya Barraza [facility] Unavailable [phone] Maximino Arredondo MD Primary Care Provider [phone] Jeanette French RN Unavailable [phone] Tammy Greenberg MD Unavailable [phone] Genaro Palacios MD Unavailable [phone] Claude Rucker MD Unavailable [phone] Delroy Gore APRN REFERENCE LIBRARIAN Unavailable [phone] Danya Barraza [facility] Unavailable [phone] Deuce Majano PA-C Unavailable [phone] Chapin Ruvalcaba MD Unavailable [phone] Encounter Details Date Type Department Care Team (Late st Contact Info) Description 09/30/2022 Orders Only [facility] [address] [place] [address] Outside, Provider Social History Tobacco Use Types [...] Contact Info) Description 04/01/2023 1:15 PM MEDICAL MANAGER Office Visit [address] [address] Yolanda Wilkerson PA-C [address] [place] [address] 236105 07/13/2023 8:00 AM CDT Virtual Visit [facility] [address] [place] [address] [phone] Deuce Majano PA-C [address] [place] [address] [phone] documented as of this encounter Procedures Procedure Name Priority Date/Time Associated Diagnosis Comments HLA RESULT REPORT 09/30/2022 8:47 AM CDT HLA RESULT REPORT 09/30/2022 8:47 AM CDT documented in this encounter Results * HLA RESULT REPORT (09/30/2022 8:47 AM CDT) Provider Outside LAB - IMMUNOLOGY ORD ERABLES * HLA RESULT REPORT (09/30/2022 8:47 AM CDT) Provider Outside LAB - IMMUNOLOGY ORD ERABLES documented in this encounter Visit Diagnoses Not on filedocumented in this encounter Additional Health Concerns Infection Onset Date Last Indicated Resolved Time Rule Out C-difficile 03/10/2023 03/10/2023 024 5:57 PM MEDICAL MANAGER documented as of this encounter Care Teams Kitchen Stewardess Relationship Specialty Start Date End Date Maximino Arredondo MD [address] [place] [address] PCP - General Family Medicine 04/02/21 Chapin Khan MD [address] [place] [address] [phone] Urology 05/10/20 Danya Barraza, [facility] [address] [place] [address] [phone] Pharmacist Pharmacist Travel Coordinator 12/25/20 Jeanette French, RN [address] [place], [place] 148165 Specialty Clinical Psychologist Private Practice Gastroenterology 12/30/21 Tammy Greenberg MD [address] [place] [address] 508 [place], [place] [phone] Cardiovascular Disease 02/24/22 Genaro Palacios MD [address] [facility] [address] [place] [address] Assigned Heart and Vascular Provider 03/28/22 Claude Rucker MD [address] [place] [address] Assigned Surgical Provider 04/11/22 Delroy Gore APRN CNP [address] [place] [address] [phone] Assigned Nephrology Provider 04/25/22 Danya Barraza [facility] [address] [place] [address] [phone] Assigned MTM Pharmacist 12/05/22 Deuce Majano PA-C [address] [place] [address] [phone] Assigned Gastroenterology Provider 01/23/23 02/05/23 Chapin Ruvalcaba MD [address] [facility] [address] [place], [place] 083925 Assigned Gastroenterology Provider 02/06/23 documented as of this encounter
--- OUTSIDE RECORDS SUMMARY | 2023-03-14 02:38 | XMS_ITS | Encounter Summary ---
Author Name Unknown Organization [facility] Address [address] [place] [address]. [place] [address] Care Team Providers Care Creative Director Name Role Phone Chapin Khan MD Unavailable [phone] Danya Barraza [facility] Unavailable [phone] Maximino Arredondo MD Primary Care Provider [phone] Jeanette French RN Unavailable [phone] Tammy Greenberg MD Unavailable [phone] Genaro Palacios MD Unavailable [phone] Claude Rucker MD Unavailable [phone] Delroy Gore APRN APPRENTICE FUNERAL DIRECTOR Unavailable [phone] Encounter Details Date Type Department Care Team (Latest Contact Info) Description 09/14/2022 Travel Social History Tobacco Use Types Packs/Day [...] st Contact Info) Description 04/01/2023 1:15 PM HOSPICE CHAPLAIN Office Visit [address] [phone] Yolanda Wilkerson PA-C [address] [place] [address] [phone] 07/13/2023 8:00 AM CDT Virtual Visit [facility] [address] 4th [place] [phone] Deuce Majano PA-C [address] [place] [address] [phone] documented as of this encounter Visit Diagnoses Not on filedocumented in this encounter Care Teams Creative Director Relationship Specialty Start Date End Date Maximino Arredondo MD [address] [place] [address] PCP - General Family Medicine 04/02/21 Chapin Khan MD [address] [place] [address] Urology 05/10/20 Danya Barraza, [facility] [address] [place] [address] [phone] Pharmacist Pharmacist Rural Route Mail Carrier 12/25/20 Jeanette French, FATOUMATA [address] [place] [address] [phone] Specialty Business Support Administrator Gastroenterology 12/30/21 Tammy Greenberg MD [address] [place] [address] 508 [place] [address] Cardiovascular Disease 02/24/22 Genaro Palacios MD [address] 169215 Assigned Heart and Vascular Provider 03/28/22 Claude Rucker MD [address] [place] [address] Assigned Surgical Provider 04/11/22 Delroy Gore APRN APPRENTICE FUNERAL DIRECTOR [address] [place] [address] Assigned Nephrology Provider 04/25/22 documented as of this encounter
--- OUTSIDE RECORDS SUMMARY | 2023-03-14 02:38 | XMS_ITS | Encounter Summary ---
Author Name Unknown Organization [facility] Address [address] [place] [address]. [place] [address] Care Team Providers Care Quality Assurance Director Name Role Phone Chapin Khan MD Unavailable [phone] Danya Barraza [facility] Unavailable [phone] Maximino Arredondo MD Primary Care Provider [phone] Jeanette French RN Unavailable [phone] Tammy Greenberg MD Unavailable [phone] Genaro Palacios MD Unavailable [phone] Claude Rucker MD Unavailable [phone] Delroy Gore APRN EDGE PLUGGER Unavailable [phone] Encounter Details Date Type Department Care Team (Latest Contact Info) Description 09/22/2022 Travel Social History Tobacco Use Types Packs/Day [...] st Contact Info) Description 04/01/2023 1:15 PM SAMPLE CUTTER Office Visit [address] [phone] Yolanda Wilkerson PA-C [address] [place] [address] [phone] 07/13/2023 8:00 AM CDT Virtual Visit [facility] [address] 4th [place] [phone] Deuce Majano PA-C [address] [place] [address] 128145 documented as of this encounter Visit Diagnoses Not on filedocumented in this encounter Care Teams Quality Assurance Director Relationship Specialty Start Date End Date Maximino Arredondo MD [address] [place] [address] PCP - General Family Medicine 04/02/21 Chapin Khan MD [address] [place] [address] Urology 05/10/20 Danya Barraza, [facility] [address] [place] [address] [phone] Pharmacist Pharmacist Assistant Coach 12/25/20 Jeanette French, FATOUMATA [address] [place] [address] [phone] Specialty Change House Attendant Gastroenterology 12/30/21 Tammy Greenberg MD [address] [place] [address] 508 [place] [address] Cardiovascular Disease 02/24/22 Genaro Palacios MD [address] 558085 Assigned Heart and Vascular Provider 03/28/22 Claude Rucker MD [address] [place] [address] Assigned Surgical Provider 04/11/22 Delroy Gore APRN EDGE PLUGGER [address] [place] [address] Assigned Nephrology Provider 04/25/22 documented as of this encounter
--- OUTSIDE RECORDS SUMMARY | 2023-03-14 02:38 | XMS_ITS | Encounter Summary ---
Author Name Unknown Organization [facility] Address [address] [place] [address]. [place] [address] Care Team Providers Care Ceramic Maker Demonstrator Name Role Phone Chapin Khan MD Unavailable [phone] Brionna Covarrubias RN Unavailable [phone] Danya Barraza [facility] Unavailable Maximino Arredondo MD Primary Care Provider Jeanette French RN Unavailable [phone] Tammy Greenberg MD Unavailable [phone] Genaro Palacios MD Unavailable [phone] Claude Rucker MD Unavailable [phone] Delroy Gore APRN MAINTENANCE MACHINIST Unavailable Reason for Visit * Reason Onset Date Comments Colonoscopy 08/27/2022 Encounter Details Date Type Department Care Team (Late st Contact Info) Description 08/27/2022 Telephone [facility] [address] 4th [place] [address] Ashley Obrien Colonoscopy Social History Tobacco Use Types Packs/Day Years [...] encounter Miscellaneous Notes * Telephone Encounter - Ashley Obrien - 08/27/2022 2:51 PM CDT Endoscopy Scheduling Screen Have you had a positive Covid test in the last 14 days? No Are you active on MyChart? Yes What insurance is in the chart? Other: [facility] Ordering/Referring Provider: Romi Fairbanks MD (If ordering provider performs procedure, schedule with ordering provider unless otherwise instructed. ) BMI: Estimated body mass index is 23.43 kg/m?? as calculated from the following: Height as of 03/31/22: 1.803 m (5' 11). Weight as of 08/10/22: 76.2 kg (167 lb 15.9 oz). Sedation Ordered moderate sedation. If patient BMI > 50 do not schedule in ASC. Are you taking any prescription medications for pain? No Are you taking methadone or Suboxone? No Do you have a history of malignant hyperthermia or adverse reaction to anesthesia? No (Females) Are you currently ? No Have you been diagnosed or told you have pulmonary hypertension? No Do you have an LVAD? No Have you been told you have moderate to severe sleep apnea? No Have you been told you have COPD, asthma, or any other lung disease? No Do you have any heart conditions? No Have you ever had or are you awaiting a heart or lung transplant? No Have you had a stroke or transient ischemic attack (TIA aka mini stroke in the last 6 months? No Have you been diagnosed with or been told you have cirrhosis of the liver? No Are you currently on dialysis? Yes (Hospital Only) Do you need assistance transferring? No BMI: Estimated body mass index is 23.43 kg/m?? as calculated from the following: Height as of 03/31/22: 1.803 m (5' 11). Weight as of 08/10/22: 76.2 kg (167 lb 15.9 oz). Is patients BMI > 40 and scheduling location [facility]? No Do you take the medication Phentermine, Ozempic or Wegovy? No Do you take the medication Naltrexone? No Do you take blood thinners? No Prep Are you currently on dialysis or do you have chronic kidney disease? Yes (Golytely Prep) Do you have a diagnosis of diabetes? No Do you have a diagnosis of cystic fibrosis (CF)? No On a regular basis do you go 3 -5 days between bowel movements? No BMI > 40? No Preferred Pharmacy: [place] [address] [facility] [address] [facility] [address] Final Scheduling Details Colonoscopy prep sent? [facility] Procedure scheduled Colonoscopy PT WILL M[facility]CALERO APACHE BACK FOR IN-PATIENT CARE -- NO PEDIATRIC CNS/POST PROCEDURE SUPERVISION. Patient Reminders: ??? You will receive a call from a Nurse to review instructions and health history. This assessmentmust be completed prior to your procedure. Failure to complete the Nurse assessment may result in the procedure being cancelled. ??? On the day of your procedure, please designate an adult(s) who can drive you home stay with youfor the next 24 hours. The medicines used in the exam will make you sleepy. You will not be able todrive. ??? You cannot take public transportation, ride share services, or non-medical taxi service withouta responsible caregiver. Medical transport services are allowed with the requirement that a responsible caregiver will receive you at your destination. We require that drivers and caregivers are confirmed prior to your procedure. documented in this encounter Plan of Treatment Upcoming Encounters Date Type Department Care Team (Late st Contact Info) Description 04/01/2023 1:15 PM SALVAGE ENGINEERING TECHNICIAN Office Visit [address] [phone] Yolanda Wilkerson PA-C [address] [place] [address] [phone] 07/13/2023 8:00 AM CDT Virtual Visit [facility] [address] 4th [place] [phone] Deuce Majano PA-C [address] [place] [address] [phone] documented as of this encounter Visit Diagnoses Not on filedocumented in this encounter Care Teams Ceramic Maker Demonstrator Relationship Specialty Start Date End Date Maximino Arredondo MD [address] [facility] [place] [place] [address] PCP - General Family Medicine 04/02/21 Chapin Khan MD [address] [place] [address] Urology 05/10/20 Brionna Covarrubias, FATOUMATA Registered Nurse Oncology 05/10/20 09/01/22 Danya Barraza, [facility] [address] [place] [address] [phone] Pharmacist Pharmacist Paste Up Worker 12/25/20 Jeanette French, FATOUMATA [address] [place] [address] Specialty Frame Table Operator Helper Gastroenterology 12/30/21 Tammy Greenberg MD [address] [place] [address] 508 [place] [address] Cardiovascular Disease 02/24/22 Genaro Palacios MD [address] [facility] [address] [place] [address] Assigned Heart and Vascular Provider 03/28/22 Claude Rucker MD 9 [place], [place] 598245 Assigned Surgical Provider 04/11/22 Delroy Gore APRN MAINTENANCE MACHINIST 9[address] [place], [place] 291085 Assigned Nephrology Provider 04/25/22 documented as of this encounter
--- OUTSIDE RECORDS SUMMARY | 2023-03-14 02:39 | XMS_ITS | Encounter Summary ---
Author Name Unknown Organization [place] Address [address] [place] [address] Care Team Providers Care Spanner Operator Name Role Phone Chapin Khan MD Unavailable [phone] Brionna Covarrubias RN Unavailable [phone] Danya Barraza [facility] Unavailable [phone] Maximino Arredondo MD Primary Care Provider Danya Barraza [facility] Unavailable [phone] Jeanette French RN Unavailable [phone] Tammy Greenberg MD Unavailable [phone] Genaro Palacios MD Unavailable [phone] Claude Rucker MD Unavailable [phone] Delroy Gore APRN DISPLAY CARD WRITER Unavailable [phone] Chapin Ruvalcaba MD Unavailable [phone] Reason for Referral * Consultation (Routine) - Pending Review Specialty Diagnoses / Procedures Referred By Sommer t Referred To Contact Transplant / Solid Organ Transplant Diagnoses Chronic kidney disease, stage V (H) Pre-transplant evaluation for kidney transplant Cardiovascular disease End stage renal disease (H) Essential hypertension Delroy Gore APRN DISPLAY CARD WRITER [address] [place] [address] [address] [place] [address] Referral ID Status Reason Start Date Expiration Date V isits Requested Visits Authorized [id number] Pending Review 06/18/2022 06/18/2023 1 1 Question Answer Order to be scheduled by Transplant Complex Parking Meter Servicer? Yes Scheduling Visit Type New Patient to be seen by Surgeon Comments Kidney Recipient Eval; last seen 04/2020- completed eval and needs updated surgical assessment to pursue LDKT Organ Group: KIDNEY Pre / Waitlist / Post: PRE Type: NEW Provider Name: 1st Choice: Saji , Alternate Provider: ANY Date Range: NEXT AVAILABLE Call patient / no call / Mychart: CALL Encounter Details Date Type Department Care Team (Latest Contact Info) Description 06/18/2022 Documentation Only [facility] [address] [place] [address] Latrice Petty RN Chronic kidney disease, stage V (H); Pre-transplant evaluation for kidney transplant; Cardiovascular disease; End stage renal disease (H); Essential hypertension [...] PHQ-2 Answer Date Recorded PHQ-2 Score 0 03/17/2022 Sex and Gender Information Value Date Recorded Sex Assigned at Male 05/02/2020 10:54 AM CDT Gender Identity Male 05/02/2020 10:54 AM CDT Sexual Orientation Straight 05/02/2020 10 :54 AM CDT COVID-19 Exposure Response Date Recorded In the last 10 days, have lilly tolbert been in contact with someone who was confirmed or suspected to have Coronavirus/COVID-19? No / Unsure 05/28/2022 7:21 AM CDT documented as of this encounter Plan of Treatment Upcoming Encounters Date Type Department Care Team (Late st Contact Info) Description 04/01/2023 1:15 PM ELECTRICAL INSTALLER Office Visit [address] [phone] Yolanda Wilkerson PA-C [address] [place] [phone] 07/13/2023 8:00 AM CDT Virtual Visit [facility] [address] [place] [phone] Deuce Majano PA-C [address] [place] [address] [phone] Pending Results Name Type Priority Associated Diagnoses Date /Time PRA Single Antigen IgG Antibody Lab Panel Routine Chronic kidney disease, stage V (H) Pre-transplant evaluation for kidney transplant Cardiovascular disease End stage renal disease (H) Essential hypertension 03/06/2023 10:28 AM ELECTRICAL INSTALLER Scheduled Orders Name Type Priority Associated Diagnoses Orde r Schedule PRA Single Antigen IgG Antibody Lab Panel Routine Chronic kidney disease, stage V (H) Pre-transplant evaluation for kidney transplant Cardiovascular disease End stage renal disease (H) Essential hypertension 10 Occurrences starting 06/18/2022 until 06/19/2023, 2 completed Scheduled Referrals Name Type Priority Associated Diagnoses Orde r Schedule Transplant Surgeon Referral Routine Chronic kidney disease, stage V (H) Pre-transplant evaluation for kidney transplant Cardiovascular disease End stage renal disease (H) Essential hypertension Expected: 07/02/2022 (Approximate), Expires: 06/19/2023 documented as of this encounter Results * Prostate Specific Antigen Screen (08/10/2022 4:53 PM CDT) Prostate Specific Antigen Screen 0.23 0.00 - 4.50 ng/mL 08/10/2022 6:09 PM CDT [facility] Blood STRUCTURE OF RIGHT UPPER LIMB / Unknown Venipuncture / Unknown 08/10/2022 4:53 PM CDT 08/10/2022 4:53 PM CDT Narrative [facility] - 08/10/2022 6:09 PM CDT This result is obtained using the Ann Elecsys total PSA method on the chuck e411 immunoassay analyzer. Results obtained with different assay methods or kits cannot be used interchangeably. Delroy Gore APRN DISPLAY CARD WRITER LAB - BLOOD O RDERABLES [facility] [place] - [address] Lab Core Lab [place], [place] [phone] documented in this encounter Visit Diagnoses Diagnosis Chronic kidney disease, stage V (H) Chronic kidney disease, Stage V Pre-transplant evaluation for kidney transplant Cardiovascular disease Unspecified cardiovascular disease End stage renal disease (H) End stage renal disease Essential hypertension Unspecified essential hypertension documented in this encounter Care Teams Spanner Operator Relationship Specialty Start Date End Date [place] [address] PCP - General Family Medicine 04/02/21 Chapin Khan MD [address] [place] [address] 537255 Urology 05/10/20 Brionna Covarrubias, FATOUMATA Registered Nurse Oncology 05/10/20 09/01/22 Danya Barraza [facility] [address] [place] [address] Pharmacist Pharmacist Mattress And Boxsprings Supervisor 12/25/20 Danya Barraza [facility] [address] [place] [address] [phone] Assigned MTM Pharmacist 11/12/21 06/26/22 Jeanette French RN [address] [place] [address] [phone] Specialty Automotive Fuel Systems Converter Gastroenterology 12/30/21 Tammy Greenberg MD [address] [facility] [address] [place], [place] 381145 Cardiovascular Disease 02/24/22 Genaro Palacios MD [address] 719805 Assigned Heart and Vascular Provider 03/28/22 Claude Rucker MD [address] [place] [address] [phone] Assigned Surgical Provider 04/11/22 Delroy Gore APRN DISPLAY CARD WRITER [address] [place] [address] Assigned Nephrology Provider 04/25/22 Chapin Ruvalcaba MD [address] [facility] [address] [place] [address] Assigned Gastroenterology Provider 06/13/22 06/19/22 documented as of this encounter
--- OUTSIDE RECORDS SUMMARY | 2023-03-14 02:39 | XMS_ITS | Encounter Summary ---
Author Name Unknown Organization [place] Address [address] [place] [address]. [place] [address] Care Team Providers Care Hogshead Press Operator Name Role Phone Chapin Khan MD Unavailable [phone] Brionna Covarrubias RN Unavailable [phone] Danya Barraza [facility] Unavailable [phone] Maximino Arredodno MD Primary Care Provider [phone] Danya Barraza [facility] Unavailable [phone] Jeanette French RN Unavailable [phone] Tammy Greenberg MD Unavailable [phone] Genaro Palacios MD Unavailable [phone] Claude Rucker MD Unavailable [phone] Delroy Gore APRN, CNP Unavailable [phone] Romi Fairbanks MD Unavailable Danya Barraza [facility] Unavailable [phone] Deuce Majano PA-C Unavailable [phone] Chapin Ruvalcaba MD Unavailable [phone] Encounter Details Date Type Department Care Team (Late st Contact Info) Description 06/22/2022 [facility] [place] 536149 [place] [address] [phone] Sarah Munoz Social History Tobacco Use Types [...] suspected to have Coronavirus/COVID-19? No / Unsure 06/24/2022 11:22 AM CDT documented as of this encounter Plan of Treatment Upcoming Encounters Date Type Department Care Team (Late st Contact Info) Description 04/01/2023 1:15 PM LEGAL BILLING CLERK Office Visit [address] [phone] Yolanda Wilkerson PA-C [address] [place] [address] [phone] 07/13/2023 8:00 AM CDT Virtual Visit [facility] [address] [phone] Deuce Majano PA-C [address] [place] [address] [phone] documented as of this encounter Visit Diagnoses Not on filedocumented in this encounter Additional Health Concerns Infection Onset Date Last Indicated Resolved Time Rule Out C-difficile 03/10/2023 03/10/2023 024 5:57 PM LEGAL BILLING CLERK documented as of this encounter Care Teams Hogshead Press Operator Relationship Specialty Start Date End Date Maximino Arredondo MD [address] [place] [address] PCP - General Family Medicine 04/02/21 Chapin Khan MD [address] [place] [address] [phone] Urology 05/10/20 Brionna Covarrubias RN Registered Nurse Oncology 05/10/20 09/01/22 [facility] [address] [place] [address] Pharmacist Pharmacist Shotgun Shell Assembly Machine Adjuster 12/25/20 [facility] [address] [place] [address] Assigned MTM Pharmacist 11/12/21 06/26/22 Jeanette French, FATOUMATA [address] [place] [address] [phone] Specialty Speech Language Pathologist Prn Gastroenterology 12/30/21 Tammy Greenberg MD [address] [place] [address] 036985 Cardiovascular Disease 02/24/22 Genaro Palacios MD [address] [facility] [address] JOLENE LEMA [id number] Assigned Heart and Vascular Provider 03/28/22 Claude Rucker MD [address] [place] [address] Assigned Surgical Provider 04/11/22 Delroy Gore APRN GEOLOGY TEACHER [address] [place] [address] Assigned Nephrology Provider 04/25/22 Romi Fairbanks MD [address] [address] Assigned Gastroenterology Provider 06/20/22 08/14/22 Danya Barraza [facility] [address] [place] [address] Assigned MTM Pharmacist 12/05/22 Deuce Majano PA-C [address] [place] [address] Assigned Gastroenterology Provider 01/23/23 02/05/23 Chapin Ruvalcaba MD [address] [place], [place] [address]B [address] [place] [address] Assigned Gastroenterology Provider 02/06/23 documented as of this encounter
--- OUTSIDE RECORDS SUMMARY | 2023-03-14 02:39 | XMS_ITS | Encounter Summary ---
Author Name Unknown Organization [place] Address [address] [place] [address]. [place] [address] Care Team Providers Care An/Sqq 89(V)15 Sonar System Journeyman Name Role Phone Chapin Khan MD Unavailable [phone] Brionna Covarrubias RN Unavailable [phone] Danya Barraza [facility] Unavailable [phone] Maximino Arredondo MD Primary Care Provider Jeanette French RN Unavailable [phone] Tammy Greenberg MD Unavailable [phone] Genaro Palacios MD Unavailable Claude Rucker MD Unavailable [phone] Delroy Gore APRN [facility] Unavailable Romi Fairbanks MD Unavailable [phone] Reason for Visit * Reason Onset Date Comments Refill Request 07/06/2022 ustekinumab (ROSS MATHEUS) 90 MG/ML Encounter Details Date Type Department Care Team (Late st Contact Info) Description 07/06/2022 [facility] Gastroenterology Clinic [address] [place] [address] Romi Fairbanks MD [address] [address] Refill Request (ustekinumab (STELARA) 90 MG/ML) Social [...] encounter Miscellaneous Notes * Telephone Encounter - Cherelle Mock RN - 07/08/2022 9:31 AM CDT ustekinumab (STELARA) 90 MG/ML Last Written Prescription Date: 02/16/22 Last Fill Quantity: 1 ml , # refills: 3 Last Office Visit: 01/07/22 Future Office visit: 07/08/22 CBC RESULTS: Recent Labs Lab Test 05/22/22 1222 WBC 7.4 RBC 2.22* HGB 7.9* HCT 24.2* MCV 109* MCH 35.6* MCHC 32.6 RDW 14.2 PLT 117* CRP Inflammation Date Value Ref Range Status 05/22/2022 26.70 (H) <5.00 mg/L Final Sed Rate Date Value Ref Range Status 07/15/2006 36 (H) 0 - 15 mm/h Final Erythrocyte Sedimentation Rate Date Value Ref Range Status 05/22/2022 104 (H) 0 - 20 mm/hr Final Creatinine Date Value Ref Range Status 05/22/2022 4.37 (H) 0.67 - 1.17 mg/dL Final 07/09/2020 10.60 (H) 0.66 - 1.25 mg/dL Final ] Liver Function Studies - Recent Labs Lab Test 05/22/22 1222 PROTTOTAL 6.8 ALBUMIN 3.8 BILITOTAL 0.5 ALKPHOS 68 AST 18 ALT 16 Routing refill request to provider for review/approval because: Abn labs, dialysis> has appt today 07/08/22 * Telephone Encounter - Consuelo Ashby LPN - 07/06/2022 8:52 AM CDT Images from the original note were not included. documented in this encounter Plan of Treatment Upcoming Encounters Date Type Department Care Team (Late st Contact Info) Description 04/01/2023 1:15 PM SALES ASSISTANT INSTITUTIONAL SALES Office Visit [address] [phone] Yolanda Wilkerson PA-C [address] [place] [address] [phone] 07/13/2023 8:00 AM CDT Virtual Visit [facility] Gastroenterology [facility] [address] [place] [phone] Deuce Mjaano PA-C [address] [place] [address] [phone] documented as of this encounter Visit Diagnoses Diagnosis Crohn's disease of large intestine with complication (H) Regional enteritis of large intestine documented in this encounter Care Teams An/Sqq 89(V)15 Sonar System Journeyman Relationship Specialty Start Date End Date Maximino Arredondo MD [address] [place] [phone] PCP - General Family Medicine 04/02/21 Chapin Khan MD [address] [place] [address] Urology 05/10/20 Brionna Covarrubias, RN Registered Nurse Oncology 05/10/20 09/01/22 Danya Barraza, [facility] [address] [place] [address] [phone] Pharmacist Pharmacist Traverse Rod Assembler 12/25/20 Jeanette French RN [address] [place] [address] [phone] Specialty Appliances Sample Maker Gastroenterology 12/30/21 Tammy Greenberg MD [address] [place] [address] 508 [place], [place] [phone] Cardiovascular Disease 02/24/22 Genaro Palacios MD [address] [facility] [address] [place] [address] Assigned Heart and Vascular Provider 03/28/22 Claude Rucker MD [address] [place] [address] [phone] Assigned Surgical Provider 04/11/22 Delroy Gore APRN [facility] [address] [place] [address] 815135 Assigned Nephrology Provider 04/25/22 Romi Fairbanks MD [address] [address] Assigned Gastroenterology Provider 06/20/22 08/14/22 documented as of this encounter
--- OUTSIDE RECORDS SUMMARY | 2023-03-14 02:39 | XMS_ITS | Encounter Summary ---
Author Name Unknown Organization [place] Address [address] [place] [address]. [place] [address] Care Team Providers Care Program Production Specialist Name Role Phone Chapin Khan MD Unavailable [phone] Brionna Covarrubias RN Unavailable [phone] Danya Barraza [facility] Unavailable [phone] Maximino Arredondo MD Primary Care Provider Jeanette French RN Unavailable [phone] Tammy Greenberg MD Unavailable [phone] Genaro Palacios MD Unavailable [phone] Claude Rucker MD Unavailable [phone] Delroy Gore APRN HOSPITAL ADMITTING CLERK Unavailable [phone] Romi Fairbanks MD Unavailable [phone] Encounter Details Date Type Department Care Team (Latest Contact Info) Description 08/04/2022 Travel Social History Tobacco Use Types Packs/Day [...] suspected to have Coronavirus/COVID-19? No / Unsure 08/04/2022 2:32 PM CDT documented as of this encounter Plan of Treatment Upcoming Encounters Date Type Department Care Team (Late st Contact Info) Description 04/01/2023 1:15 PM SUPERVISOR ORCHARD Office Visit [address] [phone] Yolanda Wilkerson, PAAnhC [address] [place] [address] 07/13/2023 8:00 AM CDT Virtual Visit [facility] Gastroenterology Clinic [address] [phone] Deuce Majano PA-C [address] [place] [address] [phone] documented as of this encounter Visit Diagnoses Not on filedocumented in this encounter Care Teams Program Production Specialist Relationship Specialty Start Date End Date Maximino Arredondo MD [address] [place] [phone] PCP - General Family Medicine 04/02/21 Chapin Khan MD [address] [place] [address] Urology 05/10/20 Brionna Covarrubias, RN Registered Nurse Oncology 05/10/20 09/01/22 Danya Barraza [facility] [address] [place] [address] [phone] Pharmacist Pharmacist Thread Checker 12/25/20 Jeanette French, RN [address] [place] [address] [phone] Specialty Photogrammetric Technician Gastroenterology 12/30/21 Tammy Greenberg MD [address] [place] [address] 105935 Cardiovascular Disease 02/24/22 Genaro Palacios MD [address] [facility] [place] [address] [phone] Assigned Heart and Vascular Provider 03/28/22 Claude Rucker MD [address] [place] [address] [phone] Assigned Surgical Provider 04/11/22 Delroy Gore, FORM MAKER PLASTER HOSPITAL ADMITTING CLERK [address] [place] [address] 836285 Assigned Nephrology Provider 04/25/22 Romi Fairbanks MD [address] [address] Assigned Gastroenterology Provider 06/20/22 08/14/22 documented as of this encounter
--- OUTSIDE RECORDS SUMMARY | 2023-03-14 02:39 | XMS_ITS | Encounter Summary ---
Author Name Unknown Organization [place] Address [address] [place] [address]. [place] [address] Care Team Providers Care Brokerage Office Manager Name Role Phone Chapin Khan MD Unavailable [phone] Brionna Covarrubias RN Unavailable [phone] Danya Barraza [facility] Unavailable [phone] Maximino Arredondo MD Primary Care Provider Jeanette French RN Unavailable [phone] Tammy Greenberg MD Unavailable [phone] Genaro Palacios MD Unavailable [phone] Claude Rucker MD Unavailable [phone] Delroy Gore APRN, CNP Unavailable [phone] Romi Fairbanks MD Unavailable [phone] Danya Barraza [facility] Unavailable [phone] Deuce Majano PA-C Unavailable [phone] Chapin Ruvalcaba MD Unavailable [phone] Encounter Details Date Type Department Care Team (Late st Contact Info) Description 08/12/2022 MyC Medical Advice [address] [phone] [place], An Social History Tobacco Use Types Packs/Day [...] Contact Info) Description 04/01/2023 1:15 PM TRAVELING ELECTRICIAN Office Visit [address] [phone] Yolanda Wilkerson PA-C [address] [place] [address] [phone] 07/13/2023 8:00 AM CDT Virtual Visit [facility] Gastroenterology Clinic [address] [place] [phone] Deuce Majano PA-C [address] [place] [address] 149735 documented as of this encounter Visit Diagnoses Not on filedocumented in this encounter Additional Health Concerns Infection Onset Date Last Indicated Resolved Time Rule Out C-difficile 03/10/2023 03/10/2023 024 5:57 PM TRAVELING ELECTRICIAN documented as of this encounter Care Teams Brokerage Office Manager Relationship Specialty Start Date End Date Maximino Arredondo MD [address] [place] [phone] PCP - General Family Medicine 04/02/21 Chapin Khan MD [address] [place] [address] [phone] Urology 05/10/20 Brionna Covarrubias, FATOUMATA Registered Nurse Oncology 05/10/20 09/01/22 Danya Barraza, [facility] [address] [place] [address] [phone] Pharmacist Pharmacist Tool And Die Repair 12/25/20 Jeanette French, RN [address] [place] [address] [phone] Specialty Cargo Inspector Gastroenterology 12/30/21 Tammy Greenberg MD [address] [place] [address] 508 [place], [place] 682805 Cardiovascular Disease 02/24/22 Genaro Palacios MD [address] [facility] [address] [place] [address] Assigned Heart and Vascular Provider 03/28/22 Claude Rucker MD [address] [place] [address] Assigned Surgical Provider 04/11/22 Delroy Gore APRN TRIMMER CLIMBER [address] [place] [address] [phone] Assigned Nephrology Provider 04/25/22 Romi Fairbanks MD [address] 655005 Assigned Gastroenterology Provider 06/20/22 08/14/22 Danya Barraza, [facility] [address] [place] [address] [phone] Assigned [place] Pharmacist 12/05/22 Deuce Majano PA-C [address] [place] [address] [phone] Assigned Gastroenterology Provider 01/23/23 02/05/23 Chapin Ruvalcaba MD [address] [place] [address] [phone] Assigned Gastroenterology Provider 02/06/23 documented as of this encounter
--- OUTSIDE RECORDS SUMMARY | 2023-03-14 02:39 | XMS_ITS | Encounter Summary ---
Author Name Unknown Organization [facility] Address [address] [place] [address]. [place] [address] Care Team Providers Care Procurement Professional Name Role Phone Chapin Khan MD Unavailable [phone] Brionna Covarrubias RN Unavailable [phone] Danya Barraza [facility] Unavailable Maximino Arredondo MD Primary Care Provider Jeanette French RN Unavailable [phone] Tammy Greenberg MD Unavailable [phone] Genaro Palacios MD Unavailable [phone] Claude Rucker MD Unavailable [phone] Delroy Gore APRN ENGRAVINGS POLISHER Unavailable [phone] Romi Fairbanks MD Unavailable [phone] Reason for Referral * Consultation (Routine: Next available opening) - Pending Review Specialty Diagnoses / Procedures Referred By Contac t Referred To Contact Gastroenterology Diagnoses Crohn's disease of both small and large intestine with other complication (H) Romi Fairbanks MD [facility] [address] [place] [id number] Referral ID Status Reason Start Date Expiration Date V isits Requested Visits Authorized [id number] Pending Review 07/08/2022 07/08/2023 1 1 Question Answer Service: Lower Endoscopy Lower Endoscopy Type: Colonoscopy Reason for Colonoscopy: Diagnostic Sedation Concerns: No medical conditions affecting sedation Sedation Type: Moderate/Conscious Sedation Preferred Location: [facility] - with Dr. Fairbanks Scheduling Instructions: [facility] will call you to coordinate your care as prescribed by the provider. If you don? t hear from a healthcare representative within 2 business days, please call . Comments Please be aware that coverage of these services is subject to the terms and limitations of your health insurance plan. Call member services at your health plan with any benefit or coverage questions. [facility] will call you to coordinate your care as prescribed by the provider. If you don? t hear from a healthcare representative within 2 business days, please call . Reason for Visit * Reason Comments Video Visit IBD Encounter Details Date Type Department Care Team (Latest Contact Info) Description 07/08/2022 2:20 PM CDT Virtual Visit [facility] Gastroenterology Clinic [address] [address] Romi Fairbanks MD [address] [address] Crohn's disease of both small and [...] - Inhaled Oxygen Concentration - - Weight 82.1 kg (181 lb) 07/08/2022 1:52 PM CDT Height - - Body Mass Index 25.24 03/31/2022 1:02 PM CRYSTAL ATTACHER documented in this encounter Patient Instructions * Patient Instructions* Romi Fairbanks MD - 07/08/2022 2:20 PM CDT PLAN: ---Continue Stelara every 8 weeks BW every 3 months. Will follow up on CRP then or sooner. ---Referral for colonoscopy for disease activity assessment and screening ---Saw Danya Barraza, Ana 12/2021 ---Stop smoking ---Continue to avoid NSAIDs documented in this encounter Progress Notes * Romi Fairbanks MD - 07/08/2022 2:20 PM CDT Moisés Whelan is a 62 year old male who is being evaluated via a billable video visit. Virtual Visit Details Type of service: Video Visit Originating Location (pt. Location): Home Distant Location (provider location): Off-site Platform used for Video Visit: [facility] follow up PATIENT: Moisés Whelan Date of [...] mouth Takes omeprazole 20 mg before breakfast Ryan Classification AGE AT DIAGNOSIS: A1 below 16 y CURRENT DISEASE LOCATION: jejunum L4 upper GI: YES possibly, given chronic gastritis seen on EGD in 11/2019 DISEASE BEHAVIOR (since disease onset): B2: stricturing Perianal disease: NO Total number of IBD surgeries (except perianal): multiple Remaining bowel: 9 feet, per patient Current IBD Medications: none Past IBD Medications: Sulfasalazine in the 1970s Remicade around early 2000s. Was On this for at least 2 [...] resolved Interval history, 06/2022 (virtual) Continues on Stelara every 8 weeks. Hgb 9.6 on 07/06. Does report more [...] dialysis (swelling in ankles from fluid overload) Past Medical History: Diagnosis Date ??? Aortic dissection (H) distal, thin. stable/chronic on MRCP 04/2021 ??? Benign essential hypertension ??? CAD (coronary artery disease) ??? Cerebral infarction (H) ??? Crohn's colitis (H) ??? Crohn's disease of large intestine (H) 01/06/2021 ??? Current smoker ??? Esophageal reflux ??? ESRD (end stage renal disease) on dialysis (H) ??? History of basal cell carcinoma ??? Hypertension ??? Mixed hyperlipidemia ??? NSTEMI (non-ST elevated myocardial infarction) (H) ??? PAF (paroxysmal atrial fibrillation) (H) Past Surgical History: Procedure Laterality Date ??? ABDOMEN SURGERY x 6. colon resections for crohn's disease ??? APPENDECTOMY ??? CHOLECYSTECTOMY ??? COLONOSCOPY N/A 09/03/2020 Procedure: COLONOSCOPY, WITH POLYPECTOMY AND BIOPSY; Surgeon: Chapin Ruvalcaba MD; Location: [facility] ??? COLONOSCOPY N/A 01/21/2022 Procedure: COLONOSCOPY, WITH POLYPECTOMY AND BIOPSY; Surgeon: Raman Marr MD; Location: [facility] ??? CV CORONARY ANGIOGRAM N/A 07/09/2020 Procedure: CV CORONARY ANGIOGRAM; Surgeon: Luke Carvalho MD; Location: [facility] CARDIAC INTERFACE CONTROL OFFICER ??? ESOPHAGOSCOPY, GASTROSCOPY, DUODENOSCOPY (EGD), COMBINED N/A 09/03/2020 Procedure: ESOPHAGOGASTRODUODENOSCOPY, WITH FINE NEEDLE ASPIRATION BIOPSY, WITH ENDOSCOPIC ULTRASOUND GUIDANCE; Surgeon: Chapin Ruvalcaba MD; Location: [facility] ??? IR DIALYSIS FISTULOGRAM LEFT 01/15/2022 ??? IR DIALYSIS FISTULOGRAM LEFT 02/27/2022 ??? LAPAROTOMY, LYSIS ADHESIONS, COMBINED N/A 05/01/2021 Procedure: Laparotomy, extensive lysis adhesions, combined; Surgeon: Driss Morales MD; Location: [facility] OR ??? PANCREATECTOMY PARTIAL N/A 05/01/2021 Procedure: Open Subtotal Pancreatectomy, intra-op ultrasound; Surgeon: Driss Morales MD; Location: [facility] ??? REVISION FISTULA ARTERIOVENOUS UPPER EXTREMITY Left 03/31/2022 Procedure: LEFT UPPER ARM FISTULA OUTFLOW REVISION FROM CEPHALIC VEIN TO JUGULAR VEIN WITH 10mm THIN-WALLED RINGED POLYTETRAFLUEROETHYLINE; Surgeon: Genaro Palacios MD; Location: OR ??? VASCULAR SURGERY dialysis access- left upper Social History Tobacco Use ??? Smoking status: Every Day Packs/day: 0.25 Years: 50.00 Pack years: 12.50 Types: Cigarettes Last attempt to quit: 12/04/2019 Years since quittin.5 ??? Smokeless tobacco: Never Vaping Use ??? Vaping status: Not on file Substance Use Topics ??? Alcohol use: Yes Comment: rare Family History Problem Relation Age of Onset ??? Breast Cancer Mother ??? Coronary Artery Disease Father ??? Hypertension Brother ??? Anesthesia Reaction No family hx of ??? Thrombosis No family hx of Allergies Allergen Reactions ??? Lisinopril Anaphylaxis and Other (See Comments) Shortness of breath Outpatient Encounter Medications as of 07/08/2022 Medication Sig Dispense Refill ??? amLODIPine (NORVASC) 10 MG tablet Take 10 mg by mouth daily ??? calcitRIOL (ROCALTROL) 0.5 MCG capsule Take 1.5 mcg by mouth daily ??? calcium acetate (CALPHRON) 667 MG TABS tablet Take 2,668 mg by mouth 3 times daily ??? carvedilol (COREG) 12.5 MG tablet Take 12.5 mg by mouth 2 times daily ??? folic acid (FOLVITE) 1 MG tablet Take 1 mg by mouth every morning ??? lidocaine-prilocaine (EMLA) 2.5-2.5 % external cream three times a week Prior to dialysis site access on Wednesday, Wednesday, Wednesday ??? multivitamin RENAL (MULTIVITAMIN RENAL) 1 MG capsule Take 1 capsule by mouth every morning ??? omeprazole (PRILOSEC) [address] capsule Take 20 mg by mouth every morning ??? simvastatin (ZOCOR) 20 MG tablet Take 20 mg by mouth every morning ??? ustekinumab (STELARA) 90 MG/ML Inject 1 ml ( 90 mg) subcutaneous every 4 weeks. 1 mL 3 Facility-Administered Encounter Medications as of 07/08/2022 Medication Dose Route Frequency Provider Last Rate Last Admin ??? lidocaine 1% with EPINEPHrine 1:100,000 injection 3 [...] WBC Count Date Value Ref Range Status 05/22/2022 7.4 4.0 - 11.0 10e3/uL Final ] Hemoglobin Date Value Ref Range Status 05/22/2022 7.9 (L) 13.3 - 17.7 g/dL Final 07/09/2020 10.6 (L) 13.3 - 17.7 g/dL Final ] Platelet Count Date Value Ref Range Status 05/22/2022 117 (L) 150 - 450 10e3/uL Final 07/09/2020 224 150 - 450 10e9/L Final Most recent coag: INR Date Value Ref Range Status 05/01/2021 1.30 (H) 0.85 - 1.15 Final 07/09/2020 1.33 (H) 0.86 - 1.14 Final Most recent hepatic panel: AST Date Value Ref Range Status 05/22/2022 18 10 - 50 U/L Final 05/09/2020 16 0 - 45 U/L Final ALT Date Value Ref Range Status 05/22/2022 16 10 - 50 U/L Final 05/09/2020 22 0 - 70 U/L Final Bilirubin Conjugated Date Value Ref Range Status 12/29/2007 0.0 0.0 - 0.3 mg/dL Final Bilirubin Total Date Value Ref Range Status 05/22/2022 0.5 <=1.2 mg/dL Final 05/09/2020 0.5 0.2 - 1.3 mg/dL Final Albumin Date Value Ref Range Status 05/22/2022 3.8 3.5 - 5.2 g/dL Final 09/13/2021 3.7 3.4 - 5.0 g/dL Final 05/09/2020 3.4 3.4 - 5.0 g/dL Final Alkaline Phosphatase Date Value Ref Range Status 05/22/2022 68 40 - 129 U/L Final 05/09/2020 91 40 - 150 U/L Final Most recent creatinine: Creatinine Date Value Ref Range Status 05/22/2022 4.37 (H) 0.67 - 1.17 mg/dL Final 07/09/2020 10.60 (H) 0.66 - 1.25 mg/dL Final Endoscopy: 01/2022: icscope Impression: ? - Preparation of the colon was poor. This exam was ? not adequate for colorectal cancer or polyps ? screening. ? - Perianal skin tags found on perianal exam. ? - A single ulcer in the small bowel 20 cm from the ? ileocolonic anastomosis. Biopsied. This is ? presumably the same ulcer that was seen before. ? This was smaller (now 5mm) with surrounding ? granular mucosa that may represent healing. Bipsies ? taken. ? - Congested mucosa in the distal small bowel. ? Biopsied. Otherwise remainder of ileum normal ? - Patent end-to-end ileo-colonic anastomosis, ? characterized by healthy appearing mucosa. ? - Diverticulosis vs old fisulas in the distal ? rectum. ? - Excoriated mucosa at the anus and in the distal ? rectum. Biopsied. ? - The examination was otherwise normal on direct ? and retroflexion views. ? - Simple Endoscopic Score for Crohn's Disease: 5, ? mucosal inflammatory changes secondary to Crohn's ? disease with ileitis. ? Overall exam is similar to previous but improved ? with decreased size of chronic small bowel ulcer - ? now only 5mm. Remainder of small bowel really looks ? almost normal apart from some patchy mild erythema ? and congestion. Given partial improvement IBD ? clinic may consider increasing Stelara to q 6 weeks ? or q 4 weeks. Would also consider colorectal ? evaluation for anoscopy. PATH: A. Ileum, ulcer: Biopsy: - Chronic active ileitis with architectural disarray, pyloric gland metaplasia, and active inflammation with ulceration and granulation tissue - Negative for granulomas and dysplasia - Immunostain for CMV is negative ?? B. Ileum: Biopsy: - Mild chronic active ileitis with architectural disarray, pyloric gland metaplasia, and active inflammation - Negative for granulomas and dysplasia - Immunostain for CMV is negative ?? C. Rectum: Biopsy: - Benign anorectal mucosa with quiescent colitis - No active colitis - Negative for granulomas and dysplasia 08/2020: ??- Normal perirectal exam. ?- Apparenty end-end ileocolonic anastomosis at ?approximately 70 cm (likely distal transverse colon). ?- 15 mm ulcer in the terminal ileum. Additional ?cobblestoning in this region. Biopsies obtained. ?- Unusual diverticulae in the distal 5-10 cm of the ?rectum without ulceration. Perhaps related to past ?fistulous disease. PATH: A. TERMINAL ILEUM, BIOPSY: Severe ileitis with ulceration and granulation tissue; consistent with severe chronic (Crohn) ileitis; negative for dysplasia; report of CMV immunohistochemistry to follow ?? B. TERMINAL ILEUM, LABELED BIOPSY OF ULCER: [...] multiple bowel resections, stable, on Stelara every 8 weeks PLAN: ---Continue Stelara every 8 weeks BW every 3 months. Will follow up on CRP then or sooner. ---Referral for colonoscopy for disease activity assessment and screening ---Saw Danya Barraza, Ana 12/2021 ---Stop smoking ---Continue to avoid NSAIDs RTC 6 months with IBD NAM Romi Fairbanks MD Customer Service Voicecomputer systems architect Division of Gastroenterology, Hepatology and Nutrition [facility] 40 minutes spent on the date of the encounter performing chart review, history and exam, documentation and further activities as noted above. documented in this encounter Nursing Notes * Giulia Stevenson - 07/08/2022 2:20 PM CDT Is the patient currently in the state of [place]? YES Visit mode:VIDEO If the visit is dropped, the patient can be reconnected by: TELEPHONE VISIT: Phone number: [phone] Will anyone else be joining the visit? NO How would you like to obtain your AVS? MyChart Are changes needed to the allergy or medication list? NO Reason for visit: Video Visit (IBD) documented in this encounter Plan of Treatment Upcoming Encounters Date Type Department Care Team (Late st Contact Info) Description 04/01/2023 1:15 PM CRYSTAL ATTACHER Office Visit [address] [address] Yolanda Wilkerson PA-C [address] [place] [address] [phone] 07/13/2023 8:00 AM CDT Virtual Visit [facility] Gastroenterology Clinic [address] [place] [phone] Deuce Majano PA-C [address] [place] [address] [phone] Scheduled Referrals Name Type Priority Associated Diagnoses Orde r Schedule Adult GI Title Investigator Referral - Procedure Only Referral Routine: Next available opening Crohn's disease of both small and large intestine with other complication (H) Expected: 07/08/2022 (Approximate), Expires: 07/09/2023 documented as of this encounter Visit Diagnoses Diagnosis Crohn's disease of both small and large intestine with other complication (H)- Primary documented in this encounter Care Teams Procurement Professional Relationship Specialty Start Date End Date Maximino Arredondo MD [address] [facility] [place] [address] PCP - General Family Medicine 04/02/21 Chapin Khan MD [address] [place] [address] [phone] Urology 05/10/20 Brionna Covarrubias, RN Registered Nurse Oncology 05/10/20 09/01/22 Danya Barraza [facility] [address] [place] [address] [phone] Pharmacist Pharmacist Property Controller 12/25/20 Jeanette French, RN [address] [place] [address] [phone] Specialty Statistics Manager Gastroenterology 12/30/21 Tammy Greenberg MD [address] [place] [address] [address] [place], [place] [phone] Cardiovascular Disease 02/24/22 Genaro Palacios MD [address] [place], [place] [phone] Assigned Heart and Vascular Provider 03/28/22 Claude Rucker MD [address] [place] [address] [id number] Assigned Surgical Provider 04/11/22 Delroy Gore APRN [facility] [address] [place] [address] Assigned Nephrology Provider 04/25/22 Romi Fairbanks MD [address] [address] Assigned Gastroenterology Provider 06/20/22 08/14/22 documented as of this encounter
--- OUTSIDE RECORDS SUMMARY | 2023-03-14 02:39 | XMS_ITS | Encounter Summary ---
Author Name Unknown Organization [facility] Address [address] [place] [address]. [place] [address] Care Team Providers Care Vacuum Pan Tender Name Role Phone Chapin Khan MD Unavailable [phone] Brionna Covarrubias RN Unavailable [phone] Danya Barraza [facility] Unavailable [phone] Maximino Arredondo MD Primary Care Provider [phone] Jeanette French RN Unavailable [phone] Tammy Greenberg MD Unavailable [phone] Genaro Palacios MD Unavailable [phone] Claude Rucker MD Unavailable [phone] Delroy Gore APRN, CNP Unavailable [phone] Romi Fairbanks MD Unavailable [phone] Danya Barraza [facility] Unavailable [phone] Deuce Majano PA-C Unavailable [phone] Chapin Ruvalcaba MD Unavailable [phone] Encounter Details Date Type Department Care Team (Late st Contact Info) Description 07/08/2022 [facility] Gastroenterology Clinic [address] [place] [address] Jeanette French, RN [address] [place] [address] [phone] Social History Tobacco Use Types Packs/Day Years [...] Contact Info) Description 04/01/2023 1:15 PM MANAGER READING Office Visit [address] [address] Yolanda Wilkerson PA-C [address] [place] [address] [phone] 07/13/2023 8:00 AM CDT Virtual Visit [facility] Gastroenterology Clinic [address] [phone] Deuce Majano PA-C [address] [place] [address] [phone] documented as of this encounter Visit Diagnoses Not on filedocumented in this encounter Additional Health Concerns Infection Onset Date Last Indicated Resolved Time Rule Out C-difficile 03/10/2023 03/10/2023 024 5:57 PM MANAGER READING documented as of this encounter Care Teams Vacuum Pan Tender Relationship Specialty Start Date End Date Maximino Arredondo MD [address] [place] [address] PCP - General Family Medicine 04/02/21 Chapin Khan MD [address] [place] [address] [phone] Urology 05/10/20 Brionna Covarrubias, [place] Registered Nurse Oncology 05/10/20 09/01/22 [facility] [address] [place] [address] [phone] Pharmacist Pharmacist Doctor Chiropractic 12/25/20 Jeanette French, RN [address] [place] [address] [phone] Specialty Ultimate Hoops Scoreboard Operator Gastroenterology 12/30/21 Tammy Greenberg MD [address] [place] [address] [address] [place], [place] [phone] Cardiovascular Disease 02/24/22 Genaro Palacios MD [address] [place] [id number] Assigned Heart and Vascular Provider 03/28/22 Claude Rucker MD [address] [place] [address] [phone] Assigned Surgical Provider 04/11/22 Delroy Gore APRN PROJECT ARCHIVIST [address] [place] [address] [phone] Assigned Nephrology Provider 04/25/22 Romi Fairbanks MD [address] [address] Assigned Gastroenterology Provider 06/20/22 08/14/22 Danya Barraza, [facility] [address] [place] [address] Assigned [place] Pharmacist 12/05/22 Deuce Majano PAAnhC [address] [place] [address] Assigned Gastroenterology Provider 01/23/23 02/05/23 Chapin Ruvalcaba MD [address] [place] [address] [phone] Assigned Gastroenterology Provider 02/06/23 documented as of this encounter
--- OUTSIDE RECORDS SUMMARY | 2023-03-14 02:39 | XMS_ITS | Encounter Summary ---
Author Name Unknown Organization [facility] Address [address] [place] [address]. [place] [address] Care Team Providers Care Compliance Advisor Name Role Phone Chapin Khan MD Unavailable [phone] Brionna Covarrubias RN Unavailable [phone] Danya Barraza [facility] Unavailable [phone] Maximino Arredondo MD Primary Care Provider [phone] Danya Barraza [facility] Unavailable [phone] Jeanette French RN Unavailable [phone] Tammy Greenberg MD Unavailable [phone] Genaro Palacios MD Unavailable [phone] Claude Rucker MD Unavailable [phone] Delroy Gore APRN TRANSFORMER ASSEMBLER Unavailable [phone] Romi Fairbanks MD Unavailable [phone] Encounter Details Date Type Department Care Team (Latest Contact Info) Description 06/23/2022 Travel Social History Tobacco Use Types Packs/Day [...] suspected to have Coronavirus/COVID-19? No / Unsure 06/23/2022 3:35 PM CDT documented as of this encounter Plan of Treatment Upcoming Encounters Date Type Department Care Team (Late st Contact Info) Description 04/01/2023 1:15 PM CERTIFIED MEDICINE AIDE Office Visit [address] [phone] Yolanda Wilkerson PAAnhC [address] [place] [address] [phone] 07/13/2023 8:00 AM CDT Virtual Visit [facility] Gastroenterology Clinic [address] [place] [phone] Deuce Majano PA-C [address] [place] [address] [phone] documented as of this encounter Visit Diagnoses Not on filedocumented in this encounter Care Teams Compliance Advisor Relationship Specialty Start Date End Date Maxim[place] [address] PCP - General Family Medicine 04/02/21 Chapin Khan MD [address] [place] [address] [phone] Urology 05/10/20 Brionna Covarrubias, RN Registered Nurse Oncology 05/10/20 09/01/22 Danya Bar[facility]za [facility] [address] [place] [address] [phone] Pharmacist Pharmacist Marketing Operations Assistant 12/25/20 Madi Danyatavo [facility] [address] [place] [address] [phone] Assigned MTM Pharmacist 11/12/21 06/26/22 Jeanette French RN [address] [place], [place] [phone] Specialty Dining Room Maid Gastroenterology 12/30/21 Tammy Greenberg MD [address] [place] [address] [phone] Cardiovascular Disease 02/24/22 Genaro Palacios MD [address] [facility] [address] [place], [place] [phone] Assigned Heart and Vascular Provider 03/28/22 Claude Rucker MD [address] [place] [address] [phone] Assigned Surgical Provider 04/11/22 Delroy Gore APRN TRANSFORMER ASSEMBLER [address] [place] [address] [phone] Assigned Nephrology Provider 04/25/22 Romi Fairbanks MD [address] [address] Assigned Gastroenterology Provider 06/20/22 08/14/22 documented as of this encounter
--- OUTSIDE RECORDS SUMMARY | 2023-03-14 02:39 | XMS_ITS | Encounter Summary ---
Author Name Unknown Organization [place] Address [address] [place] [address]. [place] [address] Care Team Providers Care Prizer Hand Name Role Phone Chapin Khan MD Unavailable [phone] Brionna Covarrubias RN Unavailable [phone] Danya Barraza [facility] Unavailable Maximino Arredondo MD Primary Care Provider [phone] Jeanette French RN Unavailable [phone] Tammy Greenberg MD Unavailable [phone] Genaro Palacios MD Unavailable [phone] Claude Rucker MD Unavailable [phone] Delroy Gore APRN J2EE ENGINEER Unavailable Romi Fairbanks MD Unavailable [phone] Encounter Details Date Type Department Care Team (Late st Contact Info) Description 08/10/2022 2:45 PM CDT Lab [facility] [place] [address] [facility] 1st [place] [address] Delroy Gore APRN J2EE ENGINEER [address] [place] [address] Chronic kidney disease, stage V (H); Pre-transplant [...] st Contact Info) Description 04/01/2023 1:15 PM CARPENTER Office Visit [address] [phone] Yolanda Wilkerson PA-C [address] [place] [address] [phone] 07/13/2023 8:00 AM CDT Virtual Visit [facility] [address] [phone] Deuce Majano PA-C [address] [place] [address] [phone] documented as of this encounter Procedures Procedure Name Priority Date/Time Associated Diagnosis Comments HLA COMPLETE TYPING SOT RECIPIENT Routine 08/10/2022 4:53 PM CDT Pre-transplant evaluation for kidney transplant PRA SINGLE ANTIGEN IGG ANTIBODY Routine 08/10/2022 4:53 PM CDT Chronic kidney disease, stage V (H) Pre-transplant evaluation for kidney transplant Cardiovascular disease End stage renal disease (H) Essential hypertension HLA BERTA, CPRA Routine 08/10/2022 4:53 PM CDT Chronic kidney disease, stage V (H) Pre-transplant evaluation for kidney transplant Cardiovascular disease End stage renal disease (H) Essential hypertension HLA BERTA CLASS II, SINGLE ANTIGEN Routine 08/10/2022 4:53 PM CDT Chronic kidney disease, stage V (H) Pre-transplant evaluation for kidney transplant Cardiovascular disease End stage renal disease (H) Essential hypertension HLA BERTA CLASS I, SINGLE ANTIGEN Routine 08/10/2022 4:53 PM CDT Chronic kidney disease, stage V (H) Pre-transplant evaluation for kidney transplant Cardiovascular disease End stage renal disease (H) Essential hypertension HLA-DR TYPING HIGH RESOLUTION Routine 08/10/2022 4:53 PM CDT Pre-transplant evaluation for kidney transplant HLA-ABC TYPING HIGH RESOLUTION Routine 08/10/2022 4:53 PM CDT Pre-transplant evaluation for kidney transplant HLA COMPLETE TYPING SOLID ORGAN RECIPIENT Routine 08/10/2022 4:53 PM CDT Pre-transplant evaluation for kidney transplant CBC WITH PLATELETS AND DIFFERENTIAL Routine 08/10/2022 4:53 PM CDT Crohn's disease of large intestine (H) PRA SINGLE ANTIGEN IGG ANTIBODY Routine 08/10/2022 4:53 PM CDT Chronic kidney disease, stage V (H) Pre-transplant evaluation for kidney transplant Cardiovascular disease End stage renal disease (H) Essential hypertension CBC WITH PLATELETS & DIFFERENTIAL Routine 08/10/2022 4:53 PM CDT Crohn's disease of large intestine (H) PROSTATE SPECIFIC ANTIGEN SCREEN Routine 08/10/2022 4:53 PM CDT Chronic kidney disease, stage V (H) Pre-transplant evaluation for kidney transplant Cardiovascular disease End stage renal disease (H) Essential hypertension ERYTHROCYTE SEDIMENTATION RATE AUTO Routine 08/10/2022 4:53 PM CDT Crohn's disease of large intestine (H) DIFFERENTIAL Routine 08/10/2022 4:53 PM CDT Crohn's disease of large intestine (H) CRP INFLAMMATION Routine 08/10/2022 4:53 PM CDT Crohn's disease of large intestine (H) COMPREHENSIVE METABOLIC PANEL Routine 08/10/2022 4:53 PM CDT Crohn's disease of large intestine (H) documented in this encounter Results * HLA-DR Typing High Resolution (08/10/2022 4:53 PM CDT) Greg [facility] 08/17/2022 1:51 PM CDT [facility] hiresDPA1-1 DPA1*01:0 3 08/17/2022 1:51 PM CDT [facility] hiresDPB1-1 DPB1*04:0 1 08/17/2022 1:51 PM CDT [facility] hiresDQA1-1 DQA1*01:0 2 08/17/2022 1:51 PM CDT [facility] hiresDQB1-1 DQB1*06:0 2 08/17/2022 1:51 PM CDT [facility] hiresDQB1-1Equiv 6 08/18/19 23 1:51 PM CDT [facility] hiresDRB1-1 DRB1*15:0 1 08/17/2022 1:51 PM CDT [facility] hiresDRB1-1Equiv 15 08/18/19 23 1:51 PM CDT [facility] hiresDRB5-1 DRB5*01:0 1 08/17/2022 1:51 PM CDT [facility] hiresDRB5-1Equiv 51 08/18/19 1:51 PM CDT [facility] Blood STRUCTURE OF RIGHT UPPER LIMB / Unknown Venipuncture / Unknown 08/10/2022 4:53 PM CDT 08/10/2022 4:53 PM CDT Gwendolyn Lennon MD LAB - IMMUNOLOGY ORD ERABLES [facility] Immunology/Histocomp atability [facility] [address] [facility] [address] Building, Room [address] [phone] * HLA-ABC Typing High Resolution (08/10/2022 4:53 PM CDT) ABTEST METHOD NGS 08/17/2022 1:51 PM CDT [facility] hiresA-1 A*03:01 08/17/2022 1:51 PM CDT [facility] hiresA-1Equiv 3 08/17/2022 1:51 PM CDT [facility] hiresA-2 A*11:01 08/17/2022 1:51 PM CDT [facility] hiresA-2Equiv 11 08/17/2022 1:51 PM CDT [facility] hiresB-1 B*07:02 08/17/2022 1:51 PM CDT [facility] hiresB-1Equiv 7 08/17/2022 1:51 PM CDT [facility] hiresC-1 C*07:02 08/17/2022 1:51 PM CDT [facility] hiresC-1Equiv 7 08/17/2022 1:51 PM CDT [facility] hiresBw-1 Bw*6 08/17/2022 1:51 PM CDT [facility] Blood STRUCTURE OF RIGHT UPPER LIMB / Unknown Venipuncture / Unknown 08/10/2022 4:53 PM CDT 08/10/2022 4:53 PM CDT Gwendolyn Lennon MD LAB - IMMUNOLOGY ORD ERABLES [facility] Immunology/Histocomp atability [facility] [address], Room [address] [phone] * HLA Berta, CPRA (08/10/2022 4:53 PM CDT) PROTOCOL CUTOFF Plan A, 500 mfi cumulative 08/12/2022 12:47 PM CDT [facility] UNOS CPRA 23 08/12/2022 12:47 PM CDT [facility] UNACCEPTABLE ANTIGENS DR:7 08/12/2022 12:47 PM CDT [facility] Blood STRUCTURE OF RIGHT UPPER LIMB / Unknown Venipuncture / Unknown 08/10/2022 4:53 PM CDT 08/10/2022 4:53 PM CDT Delroy Gore APRN J2EE ENGINEER LAB - IMMUNOL OGY ORDERABLES [facility] Immunology/Histocomp atability [facility] [address] [facility], Room [address] [phone] * HLA Berta Class II, Single Antigen (08/10/2022 4:53 PM CDT) SA 2 TEST METHOD SA EDTA FCS 08/12/2022 12:47 PM CDT [facility] SA 2 CELL Class II 08/12/2022 12:47 PM CDT [facility] SA2 HI RISK BERTA None 08/12/2022 12:47 PM CDT [facility] SA2 MOD RISK BERTA None 08/12/2022 12:47 PM CDT [facility] SA 2 COMMENTS HLA PRA Test performed by modified testing procedure that may also include pretreatment of serum. Pretreatment may be the addition of calf serum, EDTA, and/or adsorption. High-risk, MFI > 3,000. Mod-risk, MFI 500-3,000. 08/12/2022 12:47 PM CDT [facility] Blood STRUCTURE OF RIGHT UPPER LIMB / Unknown Venipuncture / Unknown 08/10/2022 4:53 PM CDT 08/10/2022 4:53 PM CDT Delroy Gore APRN J2EE ENGINEER LAB - IMMUNOL OGY ORDERABLES [facility] LABORATORY Immunology/Histocomp atability [facility] [address] [facility] [address] Building, Room [address] [phone] * HLA Berta Class I, Single Antigen (08/10/2022 4:53 PM CDT) SA 1 TEST METHOD SA EDTA FCS 08/12/2022 12:47 PM CDT [facility] SA 1 CELL Class I 08/12/2022 12:47 PM CDT [facility] SA1 HI RISK BERTA None 08/12/2022 12:47 PM CDT [facility] SA1 MOD RISK BERTA None 08/12/2022 12:47 PM CDT [facility] SA 1 COMMENTS HLA PRA Test performed by modified testing procedure that may also include pretreatment of serum. Pretreatment may be the addition of calf serum, EDTA, and/or adsorption. High-risk, MFI > 3,000. Mod-risk, MFI 500-3,000. 08/12/2022 12:47 PM CDT [facility] Blood STRUCTURE OF RIGHT UPPER LIMB / Unknown Venipuncture / Unknown 08/10/2022 4:53 PM CDT 08/10/2022 4:53 PM CDT Delroy Gore APRN J2EE ENGINEER LAB - IMMUNOL OGY ORDERABLES Performing Organization Address City/[facility]/ZIP Co de Phone Number HLA LABORATORY Immunology/Histocomp atability [facility] [address] [facility] [address] Building, Room [address] [phone] * (ABNORMAL) Manual Differential (08/10/2022 4:53 PM CDT) % Neutrophils 88 % 08/10/2022 5:23 PM CDT [facility] % Lymphocytes 8 % 08/10/2022 5:23 PM CDT [facility] % Monocytes 4 % 08/10/2022 5:23 PM CDT [facility] % Eosinophils 0 % 08/10/2022 5:23 PM CDT [facility] % Basophils 0 % 08/10/2022 5:23 PM CDT [facility] Absolute Neutrophils 6.4 1.6 - 8.3 10e3/uL 08/10/2022 5:23 PM CDT [facility] Absolute Lymphocytes 0.6(L) 0.8 - 5.3 10e3/uL 08/10/2022 5:23 PM CDT [facility] Absolute Monocytes 0.3 0.0 - 1.3 10e3/uL 08/10/2022 5:23 PM CDT [facility] Absolute Eosinophils 0.0 0.0 - 0.7 10e3/uL 08/10/2022 5:23 PM CDT [facility] Absolute Basophils 0.0 0.0 - 0.2 10e3/uL 08/10/2022 5:23 PM CDT [facility] RBC Morphology Confirmed RBC Indices 08/10/2022 5:23 PM CDT [facility] Platelet Assessment Automated Count Confirmed. Platelet morphology is normal. Automated Count Confirmed. Platelet morphology is normal. 08/10/2022 5:23 PM CDT [facility] Blood STRUCTURE OF RIGHT UPPER LIMB / Unknown Venipuncture / Unknown 08/10/2022 4:53 PM CDT 08/10/2022 4:53 PM CDT Romi Fairbanks MD LAB - BLOOD ORDERABL ES [facility] [address] 1st [place] [address] * HLA Complete Typing SOT Recipient (08/10/2022 4:53 PM CDT) Blood STRUCTURE OF RIGHT UPPER LIMB / Unknown Venipuncture / Unknown 08/10/2022 4:53 PM CDT 08/10/2022 4:53 PM CDT Gwendolyn Lennon MD LAB - IMMUNOLOGY ORD ERABLES [facility] Immunology/Histocomp atability [facility] [address] [facility] [address] Building, Room [address] [phone] * PRA Single Antigen IgG Antibody (08/10/2022 4:53 PM CDT) Blood STRUCTURE OF RIGHT UPPER LIMB / Unknown Venipuncture / Unknown 08/10/2022 4:53 PM CDT 08/10/2022 4:53 PM CDT Delroy Gore APRN J2EE ENGINEER LAB - IMMUNOL OGY ORDERABLES Performing Organization Address City/[facility]/ZIP Co de Phone Number [facility] Immunology/Histocomp atability [facility] [address] [facility], Room [address] [phone] * (ABNORMAL) CBC with platelets and differential (08/10/2022 4:53 PM CDT) WBC Count 7.3 4.0 - 11.0 10e3/uL 08/10/2022 5:23 PM CDT [facility] RBC Count 2.76(L) 4.40 - 5.90 10e6/uL 08/10/2022 5:23 PM CDT [facility] Hemoglobin 9.3(L) 13.3 - 17.7 g/dL 08/10/2022 5:23 PM CDT [facility] Hematocrit 29.5(L) 40.0 - 53.0 % 08/10/2022 5:23 PM CDT [facility] MCV 107(H) 78 - 100 fL 08/10/2022 5:23 PM CDT [facility] MCH 33.7(H) 26.5 - 33.0 pg 08/10/2022 5:23 PM CDT [facility] MCHC 31.5 31.5 - 36.5 g/dL 08/10/2022 5:23 PM CDT [facility] RDW 17.2(H) 10.0 - 15.0 % 08/10/2022 5:23 PM CDT [facility] Platelet Count 144(L) 150 - 450 10e3/uL 08/10/2022 5:23 PM CDT [facility] Blood STRUCTURE OF RIGHT UPPER LIMB / Unknown Venipuncture / Unknown 08/10/2022 4:53 PM CDT 08/10/2022 4:53 PM CDT Romi Fairbanks MD LAB - BLOOD ORDERABL ES Performing Organization Address [facility] Co de Phone Number [facility] [address] Floor Lab Core Lab [place], [place] [phone] * Prostate Specific Antigen Screen (08/10/2022 4:53 PM CDT) Pathologist [facility] Prostate Specific Antigen Screen 0.23 0.00 - 4.50 ng/mL 08/10/2022 6:09 PM CDT [facility] Blood STRUCTURE OF RIGHT UPPER LIMB / Unknown Venipuncture / Unknown 08/10/2022 4:53 PM CDT 08/10/2022 4:53 PM CDT Narrative [facility] - 08/10/2022 6:09 PM CDT This result is obtained using the Ann Elecsys total PSA method on the chuck e411 immunoassay analyzer. Results obtained with different assay methods or kits cannot be used interchangeably. Delroy Gore APRN J2EE ENGINEER LAB - BLOOD O RDERABLES Performing Organization Address [facility]/ZIP Co de Phone Number [facility] CORE [address] [place] [address] * (ABNORMAL) Erythrocyte sedimentation rate auto (08/10/2022 4:53 PM CDT) Erythrocyte Sedimentation Rate 77(H) 0 - 20 mm/hr 08/10/2022 5:22 PM CDT [facility] Blood STRUCTURE OF RIGHT UPPER LIMB / Unknown Venipuncture / Unknown 08/10/2022 4:53 PM CDT 08/10/2022 4:53 PM CDT Romi Fairbanks MD LAB - BLOOD ORDERABL ES Performing Organization Address [facility] Co de Phone Number [facility] [address] 1st [place] [address] * (ABNORMAL) CRP inflammation (08/10/2022 4:53 PM CDT) [facility] CRP Inflammation 154.00(H) <5.00 mg/L 08/10/2022 5:20 PM CDT [facility] Blood STRUCTURE OF RIGHT UPPER LIMB / Unknown Venipuncture / Unknown 08/10/2022 4:53 PM CDT 08/10/2022 4:53 PM CDT Romi Fairbanks MD LAB - BLOOD ORDERABL ES Performing Organization Address [facility] Co de Phone Number [facility] [address] 1st [place] [address] * (ABNORMAL) Comprehensive metabolic panel (08/10/2022 4:53 PM CDT) [facility] Sodium 140 136 - 145 mmol/L 08/10/2022 5:20 PM CDT [facility] Potassium 4.0 3.4 - 5.3 mmol/L 08/10/2022 5:20 PM CDT [facility] Chloride 98 98 - 107 mmol/L 08/10/2022 5:20 PM CDT [facility] Carbon Dioxide (CO2) 31(H) 22 - 29 mmol/L 08/10/2022 5:20 PM CDT [facility] Anion Gap 11 7 - 15 mmol/L 08/10/2022 5:20 PM CDT [facility] Urea Nitrogen 19.1 8.0 - 23.0 mg/dL 08/10/2022 5:20 PM CDT [facility] Creatinine 5.98(H) 0.67 - 1.17 mg/dL 08/10/2022 5:20 PM CDT [facility] Calcium 10.3(H) 8.8 - 10.2 mg/dL 08/10/2022 5:20 PM CDT [facility] Glucose 128(H) 70 - 99 mg/dL 08/10/2022 5:20 PM CDT [facility] Alkaline Phosphatase 65 40 - 129 U/L 08/10/2022 5:20 PM CDT [facility] AST 16 0 - 45 U/L 08/10/2022 5:20 PM CDT [facility] Comment:Reference intervals for this test were updated on 07/27/2022 to more accurately reflect our healthy population. There may be differences in the flagging of prior results with similar values performed with this method. Interpretation of those prior results can be made in the context of the updated reference intervals. ALT 15 0 - 70 U/L 08/10/2022 5:20 PM CDT [facility] Comment:Reference intervals for this test were updated on 07/27/2022 to more accurately reflect our healthy population. There may be differences in the flagging of prior results with similar values performed with this method. Interpretation of those prior results can be made in the context of the updated reference intervals. Protein Total 6.9 6.4 - 8.3 g/dL 08/10/2022 5:20 PM CDT [facility] Albumin 3.7 3.5 - 5.2 g/dL 08/10/2022 5:20 PM CDT [facility] Bilirubin Total 1.1 <=1.2 mg/dL 08/10/2022 5:20 PM CDT [facility] GFR Estimate 10(L) >60 mL/min/1. 73m2 08/10/2022 5:20 PM CDT [facility] Blood STRUCTURE OF RIGHT UPPER LIMB / Unknown Venipuncture / Unknown 08/10/2022 4:53 PM CDT 08/10/2022 4:53 PM CDT Romi Fairbanks MD LAB - BLOOD ORDERABL ES [facility] C[facility] - [address] 1st [place] [address] documented in this encounter Visit Diagnoses Diagnosis Chronic kidney disease, stage V (H) Chronic kidney disease, Stage V Pre-transplant evaluation for kidney transplant Cardiovascular disease Unspecified cardiovascular disease End stage renal disease (H) End stage renal disease Essential hypertension Unspecified essential hypertension Crohn's disease of large intestine (H) Regional enteritis of large intestine documented in this encounter Care Teams Prizer Hand Relationship Specialty Start Date End Date Maximino Arredondo MD [address] [place] [phone] PCP - General Family Medicine 04/02/21 Chapin Khan MD [address] [place] [address] [phone] Urology 05/10/20 Brionna Covarrubias, RN Registered Nurse Oncology 05/10/20 09/01/22 Danya Barraza, [facility] [address] [place] [address] [phone] Pharmacist Pharmacist Sandblaster Glass 12/25/20 Jeanette French, RN [address] [place] [address] [phone] Specialty Entrepreneurial Finance Professor Gastroenterology 12/30/21 Tammy Greenberg MD [address] [place] [address] [phone] Cardiovascular Disease 02/24/22 Genaro Palacios MD [address] [facility] [address] [place] [address] Assigned Heart and Vascular Provider 03/28/22 Claude Rucker MD [address] [place], [place] [phone] Assigned Surgical Provider 04/11/22 Delroy Gore APRN [facility] [address] [place], [place] [phone] Assigned Nephrology Provider 04/25/22 Romi Fairbanks MD [facility] [address] [place], [place] [phone] Assigned Gastroenterology Provider 06/20/22 08/14/22 documented as of this encounter
--- OUTSIDE RECORDS SUMMARY | 2023-03-14 02:39 | XMS_ITS | Encounter Summary ---
Author Name Unknown Organization [place] Address [address] [place] [address]. [place] [address] Care Team Providers Care Pharmacy Teacher Name Role Phone Chapin Khan MD Unavailable [phone] Brionna Covarrubias RN Unavailable [phone] Danya Barraza [facility] Unavailable [phone] Maximino Arredondo MD Primary Care Provider Jeanette French RN Unavailable [phone] Tammy Greenberg MD Unavailable [phone] Genaro Palacios MD Unavailable [phone] Claude Rucker MD Unavailable [phone] Delroy Gore APRN, CNP Unavailable [phone] Romi Fairbanks MD Unavailable [phone] Danya Barraza [facility] Unavailable [phone] Deuce Majano PA-C Unavailable [phone] Chapin Ruvalcaba MD Unavailable [phone] Encounter Details Date Type Department Care Team (Late st Contact Info) Description 08/12/2022 Orders Only INTERFACED REPORT Outside, Provider Social [...] st Contact Info) Description 04/01/2023 1:15 PM WATER PLANT OPERATOR Office Visit [address] [phone] Yolanda Wilkerson PA-C [address] [place] [address] [phone] 07/13/2023 8:00 AM CDT Virtual Visit [facility] Gastroenterology Clinic [address] [place] [phone] Deuce Majano PA-C [address] [place] [phone] documented as of this encounter Procedures Procedure Name Priority Date/Time Associated Diagnosis Comments HLA RESULT REPORT 08/12/2022 12:48 PM CDT HLA RESULT REPORT 08/12/2022 12:48 PM CDT documented in this encounter Results * HLA RESULT REPORT (08/12/2022 12:48 PM CDT) Provider Outside LAB - IMMUNOLOGY ORD ERABLES * HLA RESULT REPORT (08/12/2022 12:48 PM CDT) Provider Outside LAB - IMMUNOLOGY ORD ERABLES documented in this encounter Visit Diagnoses Not on filedocumented in this encounter Additional Health Concerns Infection Onset Date Last Indicated Resolved Time Rule Out C-difficile 03/10/2023 03/10/2023 024 5:57 PM WATER PLANT OPERATOR documented as of this encounter Care Teams Pharmacy Teacher Relationship Specialty Start Date End Date Maximino Arredondo MD [address] [place] [phone] PCP - General Family Medicine 04/02/21 Chapin Khan MD [address] [place] [address] [phone] Urology 05/10/20 Brionna Covarrubias, RN Registered Nurse Oncology 05/10/20 09/01/22 Danya Barraza, [facility] [address] [place] [address] [phone] Pharmacist Pharmacist Newscast Director 12/25/20 Jeanette French, RN [address] [place] [address] [phone] Specialty Vp Business Development Gastroenterology 12/30/21 Tammy Greenberg MD [address] [place] [address] [phone] Cardiovascular Disease 02/24/22 Genaro Palacios MD [address] [place] [phone] Assigned Heart and Vascular Provider 03/28/22 Claude Rucker MD [address] [place] [address] Assigned Surgical Provider 04/11/22 Delroy Gore APRN BALANCING MACHINE SET UP WORKER [address] [place] [address] Assigned Nephrology Provider 04/25/22 Romi Fairbanks MD [address] [address] Assigned Gastroenterology Provider 06/20/22 08/14/22 Danya Barraza [facility] [address] [place] [address] [phone] Assigned MTM Pharmacist 12/05/22 Deuce Majano PA-C [address] [place] [address] [phone] Assigned Gastroenterology Provider 01/23/23 02/05/23 Chapin Ruvalcaba MD [address] [place] [address] [phone] Assigned Gastroenterology Provider 02/06/23 documented as of this encounter
--- OUTSIDE RECORDS SUMMARY | 2023-03-14 02:39 | XMS_ITS | Encounter Summary ---
Author Name Unknown Organization [facility] Address [address] [place] [address]. [place] [address] Care Team Providers Care Search And Rescue Officer Name Role Phone Chapin Khan MD Unavailable [phone] Brionna Covarrubias RN Unavailable [phone] Danya Barraza [facility] Unavailable [phone] Maximino Arredondo MD Primary Care Provider Jeanette French RN Unavailable [phone] Tammy Greenberg MD Unavailable [phone] Genaro Palacios MD Unavailable [phone] Claude Rucker MD Unavailable [phone] Delroy Gore APRN CIRCUIT MANAGER Unavailable [phone] Romi Fairbanks MD Unavailable [phone] Reason for Visit * Reason Comments Follow Up Kidney - eval * Consultation (Routine) - Pending Review Specialty Diagnoses / Procedures Referred By Contac t Referred To Contact Transplant / Solid Organ Transplant Diagnoses Chronic kidney disease, stage V (H) Pre-transplant evaluation for kidney transplant Cardiovascular disease End stage renal disease (H) Essential hypertension Delroy Gore, EMILY CIRCUIT MANAGER [address] [place] [address] [address] [place] [address] Referral ID Status Reason Start Date Expiration Date V isits Requested Visits Authorized [id number] Pending Review 06/18/2022 06/18/2023 1 1 Encounter Details Date Type Department Care Team (Late st Contact Info) Description 08/10/2022 3:00 PM CDT Office Visit [facility] [address] [place] [address] Delroy Gore, SURVEYOR ROD HELPER CIRCUIT MANAGER [address] [place] [address] Gwendolyn Lennon MD [address] [place] [address] Chronic kidney disease, stage V (H); [...] PM CDT documented as of this encounter Last Filed Vital Signs Vital Sign Reading Time Taken Comments Blood Pressure 169/78 08/10/2022 3:18 PM CDT Pulse 100 08/10/2022 3:18 PM CDT Temperature - - Respiratory Rate - - Oxygen Saturation 93% 08/10/2022 3:18 PM CDT Inhaled Oxygen Concentration - - Weight 76.2 kg (167 lb 15.9 oz) 08/10/2022 3:18 PM CDT Height - - Body Mass Index 23.43 03/31/2022 1:02 PM CLINICAL SCIENCES PROFESSOR documented in this encounter Progress Notes * Gwendolyn Lennon MD - 08/10/2022 3:00 PM CDT Images from the original note were not included. Transplant Surgery Consult Note Date of : 1960, Consult requested by Dr Adame for evaluation of kidney transplant candidacy. Assessment and Recommendations:Mr. Whelan appears to be a good candidate for kidney transplantationand has a good understanding of the risks and benefits of this approach to the management of renal failure. The following issues should be addressed prior to finalizing his transplant candidacy: 60 yo male on dialysis since Nov 2019 ESRD with unknown etiology History of Crohn's - previous ex lap, previous ostomy (reversed; presence of a RIGHT lower quadranthernia - no plan to repair per patient); on stelara History of pancreatic cyst - IPMN (s/p open subtotal pancreatectomy 04/2021; upper midline and L subcostal incision; path - IPMN with mutifocal high grade dysplasia, 7.2cm; resection margin with low grade present; negative LN); pending MRCP this 2022 Smoking: long history of smoking; started at 14 years. No oxygen requirement. Frailty: NONE; no symptoms of claudication - NEED to plan for LEFT side placement (LEFT vessels on CT 11/2021 looked appropriate; recent US with triphasic flow but small artery; palpable LEFT femoral; avoid RIGHT side due to the hernia and vessel disease) - STRONGLY RECOMMEND for living donor kidney (given vessel diseases). Recommend to find living donors. - Recommend for Cardiac clearance (LHC about 2 years ago without any remarkable findings; but givenhistory of smoking and dialysis, there is an increase cardiac risk) - Recommend for CT chest and PFT (given his jail of smoking) - Repeat HLA and PRA (given history of blood transfusion - Recommend to follow up with MRCP for IMPN monitor Bakari Noa Morley MD Transplant Surgery Fellow I have reviewed history, examined patient and discussed plan with the fellow/resident/NAM. I concur with the findings in this note. Risks of the surgical procedure including but not limited to the rare risk of mortality discussed in detail. Patient verbalized good understanding and had several pertinent questions which were answered satisfactorily. Immunosuppressive regimen, management and jail risks discussed in detail. Total time: 30 min Counseling time: 15 min HPI: Mr. Whelan has End stage renal failure due to hypertension. The patient is non-diabetic. The patient is on dialysis. SUNNI THOMAS Has potential kidney donors: NO History of Crohn's - previous ex lap, previous ostomy (reversed; presence of a hernia); on stelara History of pancreatic cyst - IPMN (s/p open subtotal pancreatectomy 04/2021; upper midline and L subcostal incision; path - IPMN with mutifocal high grade dysplasia, 7.2cm; resection margin with low grade present; negative LN); pending MRCP this 2022 Smoking: long history of smoking; started at 14 years. No oxygen requirement. Denies any claudication The patient has the following pertinent history: No Yes Dialysis: [] [x] via: Blood Transfusion [] [x] Number of units: Most recently: : [x] [] Number: Previous Transplant: [x] [] Details: Cancer [x] [] Comment: Kidney stones [x] [] Comment: Recurrent infections [x] [] Type: Bladder dysfunction [x] [] Cause: Claudication [x] [] Distance: Previous Amputation [x] [] Cause: Chronic anticoagulation [x] [] Indication: Mormon [x] [] Past Medical History: Diagnosis Date ??? Aortic [...] BIOPSY; Surgeon: Raman Marr MD; Location: GI ??? CV CORONARY ANGIOGRAM N/A 07/09/2020 Procedure: CV CORONARY ANGIOGRAM; Surgeon: Luke Carvalho MD; Location: HEART CARDIAC GERIATRIC AIDE ??? ESOPHAGOSCOPY, GASTROSCOPY, DUODENOSCOPY (EGD), COMBINED N/A [...] ??? VASCULAR SURGERY dialysis access- left upper Family History Problem Relation Age of Onset ??? Breast Cancer Mother ??? Coronary Artery Disease Father ??? Hypertension Brother ??? Anesthesia Reaction No family hx of ??? Thrombosis No family hx of Social History Socioeconomic History ??? Marital status: Spouse name: Not on file ??? Number of children: 1 ??? Years of education: Not on file ??? Highest education level: Not on file Occupational History ??? 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 Smoking status: Every Day Packs/day: 0.25 Years: 50.00 Pack years: 12.50 Types: Cigarettes Last attempt to quit: 12/04/2019 Years since quittin.6 ??? Smokeless tobacco: Never Substance and Sexual Activity ??? Alcohol use: Yes Comment: rare ??? Drug use: Not Currently ??? Sexual activity: Not on file Other Topics Concern ??? Parent/sibling w/ CABG, OR or angioplasty before 65F 55M? Not Asked Social History Narrative ??? Not on file Social Determinants of Health Financial Resource Strain: Not on file Food Insecurity: Not on file Transportation Needs: Not on file Physical Activity: Not on file Stress: Not on file Social Connections: Not on file Intimate Partner Violence: Not on file Housing Stability: Not on file ROS: CONSTITUTIONAL: No fevers or chills EYES: negative for icterus ENT: negative for hearing loss, tinnitus and sore throat RESPIRATORY: negative for cough, sputum, dyspnea CARDIOVASCULAR: negative for chest pain Fatigue GASTROINTESTINAL: negative for nausea, vomiting, diarrhea or constipation GENITOURINARY: negative for incontinence, dysuria, bladder emptying problems HEME: No easy bruising INTEGUMENT: negative for rash and pruritus NEURO: Negative for headache, seizure disorder Allergies: Allergies Allergen Reactions ??? Lisinopril Anaphylaxis and Other (See Comments) Shortness of breath Medications: Prescription Medications as of 08/10/2022 Rx Number Disp Refills Start End Last Dispensed Date Next Fill Date Owning Pharmacy amLODIPine (NORVASC) 10 MG tablet 01/05/2022 Sig: Take 10 mg by mouth daily Class: Historical Route: Oral calcitRIOL (ROCALTROL) 0.5 MCG capsule 03/16/2022 Sig: Take 1.5 mcg by mouth daily Class: Historical Route: Oral calcium acetate (CALPHRON) 667 MG TABS tablet 01/17/2021 Sig: Take 2,668 mg by mouth 3 times daily Class: Historical Route: Oral carvedilol (COREG) 12.5 MG tablet 03/16/2022 03/16/2023 Sig: Take 12.5 mg by mouth 2 times daily Class: Historical Route: Oral folic acid (FOLVITE) 1 MG tablet 04/05/2021 Sig: Take 1 mg by mouth every morning Class: Historical Route: Oral lidocaine-prilocaine (EMLA) 2.5-2.5 % external cream 03/31/2021 Sig: three times a week Prior to dialysis site access on Wednesday, Wednesday, Wednesday Class: Historical multivitamin RENAL (MULTIVITAMIN RENAL) 1 MG capsule 03/18/2021 Sig: Take 1 capsule by mouth every morning Class: Historical Route: Oral omeprazole (PRILOSEC) [address] capsule 12/14/2019 Sig: Take 20 mg by mouth every morning Class: Historical Route: Oral simvastatin (ZOCOR) 20 MG tablet 04/24/2020 Sig: Take 20 mg by mouth every morning Class: Historical Route: Oral ustekinumab (STELARA) 90 MG/ML 1 mL 3 07/10/2022 [facility] [place], [place] - [facility] Twila Sig: Inject 1 ml ( 90 mg) subcutaneous every 4 weeks. Class: E-Prescribe Clinic-Administered Medications as of 08/10/2022 Dose Frequency Start End lidocaine 1% with EPINEPHrine 1:100,000 injection 3 mL 3 mL ONCE 10/03/2021 Route: Intradermal Exam: BP (!) 169/78 Pulse 100 Wt 76.2 kg (167 lb 15.9 oz) SpO2 93% BMI 23.43 kg/m?? Appearance: in no apparent distress. Skin: normal Eyes: no redness or discharge. Sclera anicteric Head and Neck: Normal, no rashes or jaundice Respiratory: easy respirations, no audible wheezing. Abdomen: flat, Surgical scars consistent with history , large hernia on the right side from previous ostomy Psychiatric: Normal mood and affect Ext: - R femoral: NOT palp - L femoral: very palp Diagnostics: No results found for this or any previous visit (from the past 672 hour(s)). UNOS cPRA Date Value Ref Range Status 05/09/2020 22 Final documented in this encounter Plan of Treatment Upcoming Encounters Date Type Department Care Team (Late st Contact Info) Description 04/01/2023 1:15 PM CLINICAL SCIENCES PROFESSOR Office Visit [address] [phone] Yolanda Wilkerson PA-C [address] [place] [address] [phone] 07/13/2023 8:00 AM CDT Virtual Visit [facility] [address] [place] [phone] Deuce Majano PA-C [address] [place] [address] 680025 documented as of this encounter Visit Diagnoses Diagnosis Chronic kidney disease, stage V (H) Chronic kidney disease, Stage V Pre-transplant evaluation for kidney transplant Cardiovascular disease Unspecified cardiovascular disease End stage renal disease (H) End stage renal disease Essential hypertension Unspecified essential hypertension documented in this encounter Care Teams Search And Rescue Officer Relationship Specialty Start Date End Date Maximino Arredondo MD [address] [place] [address] PCP - General Family Medicine 04/02/21 Chapin Khan MD [address] [place] [address] Urology 05/10/20 Brionna Covarrubias, RN Registered Nurse Oncology 05/10/20 09/01/22 Danya Barraza, [facility] [address] [place] [address] [phone] Pharmacist Pharmacist Supervisor Plastering 12/25/20 Jeanette French, RN [address] [place] [address] 267205 Specialty Risk Control Officer Gastroenterology 12/30/21 Tammy Greenberg MD [address] [place] [address] [address] [place], [place] [phone] Cardiovascular Disease 02/24/22 Genaro Palacios MD [address] [facility] [place] [address] 296005 Assigned Heart and Vascular Provider 03/28/22 Claude Rucker MD [address] [place] [address] Assigned Surgical Provider 04/11/22 Delroy Gore, SURVEYOR ROD HELPER CIRCUIT MANAGER [address] [place] [address] [phone] Assigned Nephrology Provider 04/25/22 Romi Fairbanks MD [address] [address] Assigned Gastroenterology Provider 06/20/22 08/14/22 documented as of this encounter
--- OUTSIDE RECORDS SUMMARY | 2023-03-14 02:39 | XMS_ITS | Encounter Summary ---
Author Name Unknown Organization [place] Address [address] [place] [address]. [place] [address] Care Team Providers Care Concierge Name Role Phone Chapin Khan MD Unavailable [phone] Brionna Covarrubias RN Unavailable [phone] Danya Barraza [facility] Unavailable [phone] Maximino Arredondo MD Primary Care Provider [phone] Danya Barraza [facility] Unavailable [phone] Jeanette French RN Unavailable [phone] Tammy Greenberg MD Unavailable [phone] Genaro Palacios MD Unavailable [phone] Claude Rucker MD Unavailable [phone] Delroy Gore APRN MIGRATORY WORKER Unavailable Romi Fairbanks MD Unavailable [phone] Encounter Details Date Type Department Care Team (Late st Contact Info) Description 06/20/2022 [facility] [address] [place] [address] Romi Fairbanks MD [address] [address] Social History Tobacco Use Types Packs/Day [...] Telephone Encounter - Jeanette French RN - 06/24/2022 2:13 PM CDT Type & Screen completed. Patient receiving his blood transfusions now. * Telephone Encounter - Jeanette French RN - 06/23/2022 10:57 AM CDT Per [facility], appointment available for transfusions tomorrow @ 0700. Patient would need to complete Type & Screen today. Called patient. He has dialysis tomorrow at that time and is unable to move the appointment due to availability at [facility]. Patient is on the waitlist at [facility] for the next available appointment. documented in this encounter Plan of Treatment Upcoming Encounters Date Type Department Care Team (Late st Contact Info) Description 04/01/2023 1:15 PM PROTECTIVE SIGNAL INSTALLER Office Visit [address] [phone] Yolanda Wilkerson, PAMily [address] [place] [address] 07/13/2023 8:00 AM CDT Virtual Visit [facility] Gastroenterology Clinic [address] 4[address] [place] [phone] Deuce Majano PA-C [address] [place] [address] [phone] documented as of this encounter Visit Diagnoses Not on filedocumented in this encounter Care Teams Concierge Relationship Specialty Start Date End Date Maximino Arredondo MD [address] [place] [phone] PCP - General Family Medicine 04/02/21 Chapin Khan MD [address] [place] [address] Urology 05/10/20 Brionna Covarrubias, RN Registered Nurse Oncology 05/10/20 09/01/22 [facility] [address] [place] [address] Pharmacist Pharmacist Fire Alarm Repairer 12/25/20 Danya Barraza [facility] [address] [place] [address] Assigned MTM Pharmacist 11/12/21 06/26/22 Jeanette French, FATOUMATA [address] [place] [address] Specialty Export Specialist Gastroenterology 12/30/21 Tammy Greenberg MD [address] [place] [address] [address] [place] [address] Cardiovascular Disease 02/24/22 Genaro Palacios MD [address] [facility] [address] [place] [address] Assigned Heart and Vascular Provider 03/28/22 Claude Rucker MD [address] [place] [address] Assigned Surgical Provider 04/11/22 Delroy Gore APRN MIGRATORY WORKER [address] [place] [address] Assigned Nephrology Provider 04/25/22 Romi Fairbanks MD [address] [address] Assigned Gastroenterology Provider 06/20/22 08/14/22 documented as of this encounter
--- OUTSIDE RECORDS SUMMARY | 2023-03-14 02:39 | XMS_ITS | Encounter Summary ---
Author Name Unknown Organization [facility] Address [address] [place] [address]. [place] [address] Care Team Providers Care Field Applications Specialist Name Role Phone Chapin Khan MD Unavailable [phone] Brionna Covarrubias RN Unavailable [phone] Danya Barraza [facility] Unavailable [phone] Maximino Arredondo MD Primary Care Provider Danya Barraza [facility] Unavailable Jeanette French RN Unavailable [phone] Tammy Greenberg MD Unavailable [phone] Genaro Palacios MD Unavailable [phone] Claude Rucker MD Unavailable [phone] Delroy Gore APRN PROPERTY MANAGER Unavailable [phone] Romi Fairbanks MD Unavailable [phone] Reason for Visit * Reason Comments Blood Transfusion Scheduled transfusio n appointment for RBC. Hx ESRD Encounter Details Date Type Department Care Team (Latest Contact Info) Description 06/24/2022 12:00 PM CDT Infusion Therapy Visit [facility] Blood and Marrow Transplant Program [address] [address] Romi Fairbanks MD [address] [address] Crohn's disease of large intestine with complication (H) (Primary Dx); Anemia Social History Tobacco Use Types Packs/Day Years [...] Sign Reading Time Taken Comments Blood Pressure 175/70 06/24/2022 4:30 PM CDT Pulse 91 06/24/2022 4:30 PM CDT Temperature 37 ??C (98.6 ??F) 06/24/2022 4:30 PM CDT Respiratory Rate 16 06/24/2022 4:30 PM CDT Oxygen Saturation 96% 06/24/2022 3:09 PM CDT Inhaled Oxygen Concentration - - Weight - - Height - - Body Mass Index - - documented in this encounter Progress Notes * Sabi Sosa, FATOUMATA - 06/24/2022 12:00 PM CDT Infusion Nursing Note: Moisés Whelan presents today for prbc transfusion. Patient seen by provider today: No Hunter Skin Diver present during visit today: Not Applicable. Note: Pt received 2 units pRBC, each unit over an hour. Pt's systolic between 165- 175/systolic. Dr Romi Fairbanks paged; she states she's ok with those numbers. Pt didn't take his bp meds this morning because he ran out, is picking up from pharmacy today. Intravenous Access: Peripheral IV placed. Treatment Conditions: Not Applicable. Post Infusion Assessment: Patient tolerated infusion without incident. Blood return noted pre and post infusion. Site patent and intact, free from redness, edema or discomfort. No evidence of extravasations. Access discontinued per protocol. Discharge Plan: Discharge instructions reviewed with: Patient. Patient and/or family verbalized understanding of discharge instructions and all questions answered. Patient discharged in stable condition accompanied by: self. Departure Mode: Ambulatory. Sabi Sosa RN documented in this encounter Nursing Notes * Sabi Sosa RN - 06/24/2022 12:00 PM CDT Chief Complaint Patient presents with ??? Blood Transfusion Scheduled transfusion appointment for RBC. Hx ESRD Kandis Sosa RN documented in this encounter Plan of Treatment Upcoming Encounters Date Type Department Care Team (Late st Contact Info) Description 04/01/2023 1:15 PM FLOSSER Office Visit [address] [phone] Yolanda Wilkerson PA-C [address] [place] [address] [phone] 07/13/2023 8:00 AM CDT Virtual Visit [facility] Gastroenterology Clinic [address] [phone] Deuce Majano PA-C [address] [place] [address] [phone] documented as of this encounter Procedures Procedure Name Priority Date/Time Associated Diagnosis Comments TRANSFUSE RED BLOOD CELLS (UNIT) Routine 06/24/2022 3:13 PM CDT Anemia Crohn's disease of large intestine with complication (H) TRANSFUSE RED BLOOD CELLS (UNIT) Routine 06/24/2022 1:44 PM CDT Anemia Crohn's disease of large intestine with complication (H) TYPE AND SCREEN, ADULT Routine 06/23/2022 3:50 PM CDT Anemia Crohn's disease of large intestine with complication (H) ABO/RH TYPE AND SCREEN Routine 06/23/2022 3:50 PM CDT Anemia Crohn's disease of large intestine with complication (H) PREPARE RED BLOOD CELLS (UNIT) Routine 06/23/2022 2:18 PM CDT PREPARE RED BLOOD CELLS (UNIT) Routine 06/23/2022 2:18 PM CDT documented in this encounter Results * Transfuse red blood cells (unit) No special requirements (06/24/2022 4:31 PM CDT) Romi Fairbanks MD BLOOD TRANSFUSION OR DERABLES * Transfuse red blood cells (unit), 2 Units No special requirements (06/24/2022 4:31 PM CDT) Romi Fairbanks MD BLOOD TRANSFUSION OR DERABLES * Transfuse red blood cells (unit) No special requirements (06/24/2022 3:12 PM CDT) Romi Fairbanks MD BLOOD TRANSFUSION OR DERABLES * Adult Type and Screen (06/23/2022 3:50 PM CDT) ABO/RH(D) A POS 06/23/2022 2:43 PM CDT RH BLOOD BANK Antibody Screen Negative Negative 06/23/2022 2:43 PM CDT RH BLOOD BANK SPECIMEN EXPIRATION DATE [id number] 06/23/2022 2:43 PM CDT RH BLOOD BANK Blood STRUCTURE OF RIGHT UPPER LIMB / Unknown Venipuncture / Unknown 06/23/2022 3:50 PM CDT 06/23/2022 3:50 PM CDT Romi Fairbanks MD LAB - BLOOD BANK [facility] T ORDER BLOOD BANK [address] [place] [address] * Prepare red blood cells (unit) (06/23/2022 2:18 PM CDT) Blood Component Type Red Blood Cells UU BLOOD BANK Product Code [id number] UU BLOO D BANK Unit Status Transfused UU BLOO D BANK Unit Number [id number] UU B LOOD BANK CROSSMATCH Compatible UU BLOOD BANK CODING SYSTEM [id number] UU BLO OD BANK ISSUE DATE AND TIME [id number] UU BLOOD BANK UNIT ABO/RH A- UU BLOOD BANK UNIT TYPE ISBT 0600 UU BL OOD BANK 06/23/2022 2:18 PM CDT Romi Fairbanks MD BLOOD BANK PRODUCT O RDERABLES Performing Organization Address City/[facility]/ZIP Co de Phone Number UU BLOOD BANK [address] [place] [address] * Prepare red blood cells (unit) (06/23/2022 2:18 PM CDT) Blood Component Type Red Blood Cells [facility]U BLOOD BANK Product Code [id number] UU BLOO D BANK Unit Status Transfused UU BLOO D BANK Unit Number [id number] UU B LOOD BANK CROSSMATCH Compatible UU BLOOD BANK CODING SYSTEM [id number] UU BLO OD BANK ISSUE DATE AND TIME [id number] UU BLOOD BANK UNIT ABO/RH A- UU BLOOD BANK UNIT TYPE ISBT 0600 UU BL OOD BANK 06/23/2022 2:18 PM CDT Romi Fairbanks MD BLOOD BANK PRODUCT O RDERABLES Performing Organization Address City/[facility]/ZIP Co de Phone Number UU BLOOD BANK [address] [place] [address] documented in this encounter Visit Diagnoses Diagnosis Crohn's disease of large intestine with complication (H)- Primary Regional enteritis of large intestine Anemia Anemia, unspecified documented in this encounter Care Teams Field Applications Specialist Relationship Specialty Start Date End Date Maximino Arredondo MD [address] [facility] JOLENE Garcia [phone] PCP - General Family Medicine 04/02/21 Chapin Khan MD [address] [place] [address] Urology 05/10/20 Brionna Covarrubias, RN Registered Nurse Oncology 05/10/20 09/01/22 [facility] [address] [place] [address] [phone] Pharmacist Pharmacist Laundry Aid 12/25/20 [facility] [address] [place] [address] [phone] Assigned MTM Pharmacist 11/12/21 06/26/22 Jeanette French, RN [address] [place], [place] [phone] Specialty Shank Paperer Gastroenterology 12/30/21 Tammy Greenberg MD [address] [place] [address] [address] [place] [address] Cardiovascular Disease 02/24/22 Genaro Palacios MD [address] [place] [address] Assigned Heart and Vascular Provider 03/28/22 Claude Rucker MD [address] [place] [address] Assigned Surgical Provider 04/11/22 Delroy Gore APRN [facility] [address] [place] [address] [phone] Assigned Nephrology Provider 04/25/22 Romi Fairbanks MD [address] 572805 Assigned Gastroenterology Provider 06/20/22 08/14/22 documented as of this encounter
--- OUTSIDE RECORDS SUMMARY | 2023-03-14 02:39 | XMS_ITS | Encounter Summary ---
Author Name Unknown Organization [facility] Address [address] [place] [address]. [place] [address] Care Team Providers Care Deputy Clerk Of Superior Court Name Role Phone Chapin Khan MD Unavailable [phone] Brionna Covarrubias RN Unavailable [phone] Danya Barraza [facility] Unavailable [phone] Maximino Arredondo MD Primary Care Provider +[phone] Danya Barraza [facility] Unavailable [phone] Jeanette French RN Unavailable [phone] Tammy Greenberg MD Unavailable [phone] Genaro Palacios MD Unavailable +[phone] Claude Rucker MD Unavailable [phone] Delroy Gore APRN DOMESTIC HOUSEKEEPER Unavailable [phone] Romi Fairbanks MD Unavailable [phone] Encounter Details Date Type Department Care Team (Latest Contact Info) Description 06/24/2022 Travel Social History Tobacco Use Types Packs/Day [...] st Contact Info) Description 04/01/2023 1:15 PM COMMERCIAL LINES ASSISTANT Office Visit [address] [phone] Yolanda Wilkerson PAAnhC [address] [place] [address] [phone] 07/13/2023 8:00 AM CDT Virtual Visit [facility] [address] [place] [phone] Deuce Majano PA-C [address] [place] [address] [phone] documented as of this encounter Visit Diagnoses Not on filedocumented in this encounter Care Teams Deputy Clerk Of Superior Court Relationship Specialty Start Date End Date Maxim[place] [address] PCP - General Family Medicine 04/02/21 Chapin Khan MD [address] [place] [address] 090005 Urology 05/10/20 Brionna Covarrubias, RN Registered Nurse Oncology 05/10/20 09/01/22 [facility] [address] [place] [phone] Office Assistant 12/25/20 [facility] [address] [place] [address] [phone] Assigned MTM Pharmacist 11/12/21 06/26/22 Jeanette French RN 909 [place], [place] [phone] Specialty Roll Bucker Gastroenterology 12/30/21 Tammy Greenberg MD [address] [place] [address] 508 [place], [place] 984705 Cardiovascular Disease 02/24/22 Genaro Palacios MD [address] [facility] [address] [place], [place] 738565 Assigned Heart and Vascular Provider 03/28/22 Claude Rucker MD [address] [place] [address] 533165 Assigned Surgical Provider 04/11/22 Delroy Gore APRN DOMESTIC HOUSEKEEPER [address] [place] [address] [phone] Assigned Nephrology Provider 04/25/22 Romi [place]banks MD [address] [address] Assigned Gastroenterology Provider 06/20/22 08/14/22 documented as of this encounter
--- OUTSIDE RECORDS SUMMARY | 2023-03-14 02:39 | XMS_ITS | Encounter Summary ---
Author Name Unknown Organization [place] Address [address] [place] [address]. [place] [address] Care Team Providers Care Promotions Representative Name Role Phone Chapin Khan MD Unavailable [phone] Brionna Covarrubias RN Unavailable [phone] Danya Barraza [facility] Unavailable [phone] Maximino Arredondo MD Primary Care Provider Jeanette French RN Unavailable [phone] Tammy Greenberg MD Unavailable [phone] Genaro Palacios MD Unavailable [phone] Claude Rucker MD Unavailable [phone] Delroy Gore APRN RN LICENSED PRACTICAL Unavailable [phone] Romi Fairbanks MD Unavailable [phone] Encounter Details Date Type Department Care Team (Latest Contact Info) Description 08/10/2022 Travel Social History Tobacco Use Types Packs/Day [...] st Contact Info) Description 04/01/2023 1:15 PM BURN OUT TENDER LACE Office Visit [address] [phone] Yolanda Wilkerson, PAAnhC [address] [place] [address] 07/13/2023 8:00 AM CDT Virtual Visit [facility] [address] [phone] Deuce Majano PA-C [address] [place] [address] [phone] documented as of this encounter Visit Diagnoses Not on filedocumented in this encounter Care Teams Promotions Representative Relationship Specialty Start Date End Date Maximino Arredondo MD [address] [place] [phone] PCP - General Family Medicine 04/02/21 Chapin Khan MD [address] [place] [address] Urology 05/10/20 Brionna Covarrubias, RN Registered Nurse Oncology 05/10/20 09/01/22 Danya Barraza [facility] [address] [place] [address] [phone] Pharmacist Pharmacist Service Worker 12/25/20 Jeanette French, RN [address] [place] [address] [phone] Specialty Outside Cutter Hand Gastroenterology 12/30/21 Tammy Greenberg MD [address] [place] [address] 150385 Cardiovascular Disease 02/24/22 Genaro Palacios MD [address] [facility] [place] [address] 679845 Assigned Heart and Vascular Provider 03/28/22 Claude Rucker MD [address] [place] [address] 013705 Assigned Surgical Provider 04/11/22 Delroy Gore, SCRUM MASTER RN LICENSED PRACTICAL [address] [place] [address] [phone] Assigned Nephrology Provider 04/25/22 Romi Fairbanks MD [address] [address] Assigned Gastroenterology Provider 06/20/22 08/14/22 documented as of this encounter
--- OUTSIDE RECORDS SUMMARY | 2023-03-14 02:40 | XMS_ITS | Encounter Summary ---
Author Name Unknown Organization [place] Address [address] [place] [address]. [place] [address] Care Team Providers Care Steward/Stewardess Club Car Name Role Phone Chapin Khan MD Unavailable [phone] Brionna Covarrubias RN Unavailable [phone] Danya Barraza [facility] Unavailable [phone] Maximino Arredondo MD Primary Care Provider Danya Barraza [facility] Unavailable [phone] Jeanette French RN Unavailable [phone] Tammy Greenberg MD Unavailable [phone] Genaro Palacios MD Unavailable [phone] Claude Rucker MD Unavailable [phone] Delroy Gore APRN BENCH MOVER Unavailable [phone] Chapin Ruvalcaba MD Unavailable [phone] Reason for Visit * Reason Onset Date Comments Transplant 06/15/2022 Encounter Details Date Type Department Care Team (Late st Contact Info) Description 06/15/2022 MyC Medical Advice Initial Department Latrice Petty RN Transplant Social History Tobacco Use Types Packs/Day Years [...] encounter Miscellaneous Notes * Telephone Encounter - Latrice Petty RN - 06/18/2022 9:01 AM CDT Discussed Ziggy's next steps after his nephrology visit. He should see a surgeon and update PRA and PSA labs. He completed iliac US as requested which will be reviewed. Discussed updating dental clearance as well- letter to dentist sent via [employer]. documented in this encounter Plan of Treatment Upcoming Encounters Date Type Department Care Team (Late st Contact Info) Description 04/01/2023 1:15 PM LAUNDRY SUPERVISOR Office Visit [address] [phone] Yolanda Wilkerson, PAAnhC [address] [place] [address] [phone] 07/13/2023 8:00 AM CDT Virtual Visit [facility]ology [facility] [address] [place] [address] Deuce Majano PA-C [address] [place] [address] documented as of this encounter Visit Diagnoses Not on filedocumented in this encounter Care Teams Steward/Stewardess Club Car Relationship Specialty Start Date End Date Maximino Arredondo MD [address] [facility] [place] [phone] PCP - General Family Medicine 04/02/21 Chapin Khan MD [address] [place] [address] [phone] Urology 05/10/20 Brionna Covarrubias, FATOUMATA Registered Nurse Oncology 05/10/20 09/01/22 [facility] [address] [place] [phone] Pharmacist Pharmacist Electrogalvanizing Machine Operator 12/25/20 Danya Barraza [facility] [address] [place] [address] Assigned MTM Pharmacist 11/12/21 06/26/22 Jeanette French, RN [address] [place] [address] Specialty Director [facility] 12/30/21 Tammy Greenberg MD [address] [place] [address] 508 [place], [place] 697755 Cardiovascular Disease 02/24/22 Genaro Palacios MD [address] [facility] [address] [place] [address] Assigned Heart and Vascular Provider 03/28/22 Claude Rucker MD 909 [place] [address] Assigned Surgical Provider 04/11/22 Delroy Gore APRN [facility] 909 [place], [place] 909845 Assigned Nephrology Provider 04/25/22 Chapin Ruvalcaba MD 6 [facility] [address] [address] Assigned Gastroenterology Provider 06/13/22 06/19/22 documented as of this encounter
--- OUTSIDE RECORDS SUMMARY | 2023-03-14 02:40 | XMS_ITS | Encounter Summary ---
Author Name Unknown Organization [facility] Address [address] [place] [address]. [place] [address] Care Team Providers Care Merchandising Assistant Name Role Phone Chapin Khan MD Unavailable [phone] Brionna Covarrubias RN Unavailable [phone] Danya Barraza [facility] Unavailable [phone] Romi Fairbanks MD Unavailable [phone] Maximino Arredondo MD Primary Care Provider [phone] Danya Barraza [facility] Unavailable [phone] Jeanette French RN Unavailable [phone] Tammy Greenberg MD Unavailable [phone] Genaro Palacios MD Unavailable [phone] Claude Rucker MD Unavailable [phone] Delroy Gore APRN [employer] Unavailable [phone] Encounter Details Date Type Department Care Team (Latest Contact Info) Description 05/14/2022 Travel Social History Tobacco Use Types Packs/Day [...] suspected to have Coronavirus/COVID-19? No / Unsure 05/14/2022 6:36 AM CDT documented as of this encounter Plan of Treatment Upcoming Encounters Date Type Department Care Team (Late st Contact Info) Description 04/01/2023 1:15 PM ENVIRONMENTAL SERVICES TECH Office Visit [address] [phone] Yolanda Wilkerson PAAnhC [address] [place] [address] 777205 07/13/2023 8:00 AM CDT Virtual Visit [facility] [address] [place] [phone] Deuce Majano PA-C [address] [place] [address] [phone] documented as of this encounter Visit Diagnoses Not on filedocumented in this encounter Care Teams Merchandising Assistant Relationship Specialty Start Date End [place] [address] PCP - General Family Medicine 04/02/21 Chapin Khan MD [address] [place] [address] Urology 05/10/20 Brionna Covarrubias, RN Registered Nurse Oncology 05/10/20 09/01/22 [facility] 909 [place] [address] Pharmacist Pharmacist Sanitizer 12/25/20 Romi [place] MD [facility] [address] [place], [place] 767725 Assigned Gastroenterology Provider 01/05/21 06/12/22 [facility] [address] [place] [address] [phone] Assigned MTM Pharmacist 11/12/21 06/26/22 Jeanette French, FATOUMATA 909 [place], [place] 316165 Specialty Cottrell Blower Gastroenterology 12/30/21 Tammy Greenberg MD [address] [place] [address] 508 [place], [place] 124985 Cardiovascular Disease 02/24/22 Genaro Palacios MD 6405 [facility] [address] [place] [address] Assigned Heart and Vascular Provider 03/28/22 Claude Rucker MD [address] [place] [address] Assigned Surgical Provider 04/11/22 Delroy Gore APRN [employer] [address] [place] [address] Assigned Nephrology Provider 04/25/22 documented as of this encounter
--- OUTSIDE RECORDS SUMMARY | 2023-03-14 02:40 | XMS_ITS | Encounter Summary ---
Author Name Unknown Organization [place] Address [address] [place] [address]. [place] [address] Care Team Providers Care Tire Mold Engraver Name Role Phone Chapin Khan MD Unavailable [phone] Brionna Covarrubias RN Unavailable [phone] Danya Barraza [facility] Unavailable [phone] Romi Fairbanks MD Unavailable [phone] Maximino Arredondo MD Primary Care Provider [phone] Danya Barraza [facility] Unavailable [phone] Jeanette French RN Unavailable [phone] Tammy Greenberg MD Unavailable +[phone] Genaro Palacios MD Unavailable [phone] Claude Rucker MD Unavailable [phone] Delroy Gore APRN MALE INFERTILITY SPECIALIST Unavailable [phone] Encounter Details Date Type Department Care Team (Latest Contact Info) Description 05/28/2022 Travel Social History Tobacco Use Types Packs/Day [...] st Contact Info) Description 04/01/2023 1:15 PM SWATCH PASTER Office Visit [address] [phone] Yolanda Wilkerson PAAnhC [address] [place] [address] [phone] 07/13/2023 8:00 AM CDT Virtual Visit [facility] [address] [place] [phone] Deuce Majano PA-C [address] [place] [address] 640045 documented as of this encounter Visit Diagnoses Not on filedocumented in this encounter Care Teams Tire Mold Engraver Relationship Specialty Start Date End Date [place] [address] PCP - General Family Medicine 04/02/21 Chapin Khan MD [address] [place] [address] Urology 05/10/20 Brionna Covarrubias, RN Registered Nurse Oncology 05/10/20 09/01/22 [facility] 9[address] [place] [address] Pharmacist Pharmacist Doweling Machine Operator 12/25/20 Romi [place] MD [facility] [address] [place], [place] 9[address]95 Assigned Gastroenterology Provider 01/05/21 06/12/22 [facility] [address] [place] [address] [phone] Assigned MTM Pharmacist 11/12/21 06/26/22 Jeanette French, FATOUMATA 909 [place], [place] 469045 Specialty Corduroy Cutter Operator Gastroenterology 12/30/21 Tammy Greenberg MD [address] [place] [address] 508 [place], [place] 933105 Cardiovascular Disease 02/24/22 Genaro Palacios MD 6405 [facility] [address] [place] [address]25 Assigned Heart and Vascular Provider 03/28/22 Claude Rucker MD [address] [place] [address] Assigned Surgical Provider 04/11/22 Delroy Gore APRN MALE INFERTILITY SPECIALIST 909 [place] [address] Assigned Nephrology Provider 04/25/22 documented as of this encounter
--- OUTSIDE RECORDS SUMMARY | 2023-03-14 02:40 | XMS_ITS | Encounter Summary ---
Author Name Unknown Organization [place] Address [address] [place] [address]. [place] [address] Care Team Providers Care Etymology Teacher Name Role Phone Chapin Khan MD Unavailable [phone] Brionna Covarrubias RN Unavailable [phone] D[address] [facility] Unavailable [phone] Romi [place] MD Unavailable [phone] Maximino Arredondo MD Primary Care Provider [phone] D[address] [facility] Unavailable [phone] Jeanette French RN Unavailable [phone] Tammy Greenberg MD Unavailable [phone] Genaro Palacios MD Unavailable [phone] Claude Rucker MD Unavailable [phone] Delroy Gore APRN ACCOUNTING GENERALIST Unavailable [phone] Reason for Referral * Diagnostic Imaging Ultrasound (Routine) - Pending Review Specialty Diagnoses / Procedures Referred By Contac t Referred To Contact Radiology. Diagnoses Arteriovenous fistula (H24) Subclavian vein occlusion, left (H) Procedures US Ext Arterial Venous Dialys Acs Graft Genaro Palacios MD [address] [facility] [address] [place] [address] Referral ID Status Reason Start Date Expiration Date V isits Requested Visits Authorized [id number] Pending Review 04/16/2022 04/16/2023 1 1 Reason for Visit * Diagnostic Imaging Ultrasound (Routine) - Pending Review Specialty Diagnoses / Procedures Referred By Contusama t Referred To Contact Radiology. Diagnoses Arteriovenous fistula (H24) Subclavian vein occlusion, left (H) Procedures US Ext Arterial Venous Dialys Acs Graft Genaro Palacios MD [address] [place] [id number] Referral ID Status Reason Start Date Expiration Date V isits Requested Visits Authorized [id number] Pending Review 04/16/2022 04/16/2023 1 1 Encounter Details Date Type Department Care Team (Latest Contact Info) Description 05/28/2022 7:23 AM CDT - 05/28/2022 11:59 PM CDT Hospital Encounter [facility] [address] [place] [address] Genaro Palacios MD [address] [place] [address] Arteriovenous fistula (H); Subclavian vein occlusion, left (H) Discharge Disposition: Home or Self Care [...] mg by mouth every morning 0 04/24/2020 calcitRIOL (ROCALTROL) 0.5 MCG capsule Take 1.5 mcg by mouth daily 0 03/16/2022 10/08/2022 ustekinumab (STELARA) 90 MG/MLIndications:Crohn' s disease of large intestine with complication (H) Inject 1 ml ( 90 mg) subcutaneous every 4 weeks. 1 mL 3 02/16/2022 07/10/2022 documented as of this encounter Plan of Treatment Upcoming Encounters Date Type Department Care Team (Lexi simeon Contact Info) Description 04/01/2023 1:15 PM WINDOW SHADE CUTTER Office Visit [address] [phone] Yolanda Wilkerson, RADHA [address] [place] [address] [phone] 07/13/2023 8:00 AM CDT Virtual Visit [facility] Clinic [address] [place] [phone] Deuce Majano PA-C [address] [place] [address] [phone] documented as of this encounter Procedures Procedure Name Priority Date/Time Associated Diagnosis Comments US EXTREMITY ARTERIAL VENOUS DIALYSIS ACCESS GRAFT Routine 05/28/2022 8:16 AM CDT Arteriovenous fistula (H) Subclavian vein occlusion, left (H) documented in this encounter Results * US Ext Arterial Venous Dialys Acs Graft (05/28/2022 8:16 AM CDT) Anatomical Region Laterality Modality Vascular, Abdomen/Pelvis Ultraso und Impressions 05/28/2022 12:08 PM CDT IMPRESSION: Patent arteriovenous fistula. ?? MICHELLE ZEPEDA DO Narrative 05/28/2022 12:08 PM CDT US EXTREMITY ARTERIAL VENOUS DIALYSIS ACCESS GRAFT ??05/28/2022 8:16 AM CLINICAL HISTORY/INDICATION: History of left AVF revision with PTFE graft from infraclavicular subclavian vein to internal jugular vein on 03/31/2022. Arteriovenous fistula (H). Subclavian vein occlusion, left (H). COMPARISON: None relevant. TECHNIQUE: Grayscale, color-flow, and spectral waveform analysis with velocities were performed of the dialysis access circuit. FINDINGS: The arterial inflow is patent with diameters ranging between 5.5 and 6.3 millimeters. The arterial anastomosis is patent. The fistula is patent, including the PTFE graft. Total outflow volume is 907 mL/min. Procedure Note Michelle Zepeda DO - 05/28/2022 US EXTREMITY ARTERIAL VENOUS DIALYSIS ACCESS GRAFT 05/28/2022 8:16 AM CLINICAL HISTORY/INDICATION: History of left AVF revision with PTFE graft from infraclavicular subclavian vein to internal jugular vein on 03/31/2022. Arteriovenous fistula (H). Subclavian vein occlusion, left (H). COMPARISON: None relevant. TECHNIQUE: Grayscale, color-flow, and spectral waveform analysis with velocities were performed of the dialysis access circuit. FINDINGS: The arterial inflow is patent with diameters ranging between 5.5 and 6.3 millimeters. The arterial anastomosis is patent. The fistula is patent, including the PTFE graft. Total outflow volume is 907 mL/min. IMPRESSION: Patent arteriovenous fistula. MICHELLE ZEPEDA DO Genaro Palacios MD IMG US ORDERABL ES documented in this encounter Visit Diagnoses Diagnosis Arteriovenous fistula (H24) Arteriovenous fistula, acquired Subclavian vein occlusion, left (H) Acute venous embolism and thrombosis of subclavian veins documented in this encounter Care Teams Etymology Teacher Relationship Specialty Start Date End Date Maximino Arredondo MD [address] [place] [address] PCP - General Family Medicine 04/02/21 Chapin Khan MD [address] [place] [address] [phone] Urology 05/10/20 Brionna Covarrubias RN Registered Nurse Oncology 05/10/20 09/01/[address] [facility] [address] [place] [address] Pharmacist Pharmacist Bow Maker Machine Tender 12/25/20 Romi [place] MD [address] [address] Assigned Gastroenterology Provider 01/05/21 06/12/22 Danya [address]ra[address] [facility] 909 [place] [address] Assigned MTM Pharmacist 11/12/21 06/26/22 Jeanette French, RN 909 [place] [address] Specialty Surgical Instrument Repair Specialist Gastroenterology 12/30/21 Tammy [place] MD [address] [facility] [address] [place], [place] [address] Cardiovascular Disease 02/24/22 Genaro Palacios MD 6405 [facility] [address] [place], [place] [address] Assigned Heart and Vascular Provider 03/28/22 Claude Rucker MD [address] [place] [address] [phone] Assigned Surgical Provider 04/11/22 Delroy Gore APRN ACCOUNTING GENERALIST [address] [place] [address] [phone] Assigned Nephrology Provider 04/25/22 documented as of this encounter
--- OUTSIDE RECORDS SUMMARY | 2023-03-14 02:40 | XMS_ITS | Encounter Summary ---
Author Name Unknown Organization [facility] Address [address] [place] [address]. [place] [address] Care Team Providers Care Junior Media Buyer Name Role Phone Chapin Khan MD Unavailable [phone] Brionna Covarrubias RN Unavailable [phone] Danya Barraza [facility] Unavailable [phone] Romi Fairbanks MD Unavailable [phone] Maximino Arredondo MD Primary Care Provider [phone] Danya Barraza [facility] Unavailable [phone] Jeanette French RN Unavailable [phone] Tammy Greenberg MD Unavailable [phone] Genaro Palacios MD Unavailable [phone] Claude Rucker MD Unavailable [phone] Delroy Gore APRN OFFICE SERVICES MANAGER Unavailable [phone] Reason for Visit * Reason Onset Date Comments Clinic Care Coordination - Follow-up 04/16/2022 Encounter Details Date Type Department Care Team (Late st Contact Info) Description 04/16/2022 Telephone [facility] [address] [place] [phone] Genaro Palacios MD [address] [place] [address] Clinic Care Coordination - Follow-up Social History Tobacco Use Types Packs/Day Years [...] suspected to have Coronavirus/COVID-19? No / Unsure 04/15/2022 10:35 PM LITHOGRAPHERS PRINTER documented as of this encounter Miscellaneous Notes * Telephone Encounter - Bhavik Cerda - 04/30/2022 3:56 PM CDT Future Appointments Date Time Provider Department Center 05/28/2022 8:00 AM [facility] 05/28/2022 9:00 AM Genaro Palacios MD [facility] * Telephone Encounter - Brionna Nelson RN - 04/16/2022 9:02 AM LITHOGRAPHERS PRINTER Per 04/16/[address] Palacios, pt needs the following in approximately 6-8 weeks: ??? AVF US ??? In clinic visit with Dr. Palacios to discuss results Routing to scheduling to contact patient to coordinate above. Appt note in order comments. LISA Gates, RN-[facility] [place] OGRAPHERS PRINTER documented in this encounter Plan of Treatment Upcoming Encounters Date Type Department Care Team (Late st Contact Info) Description 04/01/2023 1:15 PM LITHOGRAPHERS PRINTER Office Visit [address] [phone] Yolanda Wilkerson PA-C [address] [place] [address] [phone] 07/13/2023 8:00 AM CDT Virtual Visit [facility] [address] 4th [place] [phone] Deuce Majano PA-C [address] [place] [address] [phone] documented as of this encounter Visit Diagnoses Not on filedocumented in this encounter Care Teams Junior Media Buyer Relationship Specialty Start Date End Date [place] [address] PCP - General Family Medicine 04/02/21 Chapin Khan MD [address] [place] [address] Urology 05/10/20 Brionna Covarrubias, RN Registered Nurse Oncology 05/10/20 09/01/22 Danya Barraza, [facility] [address] [place] [address] 191885 Pharmacist Pharmacist Pulvi Mixer Operator 12/25/20 Romi Fairbanks MD [facility] [place] [address] [place], [place] 457285 Assigned Gastroenterology Provider 01/05/21 06/12/22 Danya Barraza, [facility] [address] [place], [place] 717595 Assigned MTM Pharmacist 11/12/21 06/26/22 Jeanette French, FATOUMATA [address] [place], [place] [address]255 Specialty Mold Parter Gastroenterology 12/30/21 Tammy Greenberg MD [address] [facility] 508 [place], [place] 8478[address] Cardiovascular Disease 02/24/22 Genaro Palacios MD [address] [facility] [address] [place], [place] [address] Assigned Heart and Vascular Provider 03/28/22 Claude Rucker MD [address] [place] [address] Assigned Surgical Provider 04/11/22 Delroy Gore APRN OFFICE SERVICES MANAGER [address] [place] [address] Assigned Nephrology Provider 04/25/22 documented as of this encounter
--- OUTSIDE RECORDS SUMMARY | 2023-03-14 02:40 | XMS_ITS | Encounter Summary ---
Author Name Unknown Organization [facility] Address [address] [place] [address]. [place] [address] Care Team Providers Care General Foreman Name Role Phone Chapin Khan MD Unavailable [phone] Brionna Covarrubias RN Unavailable [phone] [facility] Unavailable [phone] Romi Fairbanks MD Unavailable [phone] Maximino Arredondo MD Primary Care Provider [phone] [facility] Unavailable [phone] Jeanette French RN Unavailable [phone] Tammy Greenberg MD Unavailable [phone] Genaro Palacios MD Unavailable [phone] Claude Rucker MD Unavailable [phone] Delroy Gore APRN LAUNDRY LABORER Unavailable [phone] Encounter Details Date Type Department Care Team (Latest Contact Info) Description 05/21/2022 Travel Social History Tobacco Use Types Packs/Day [...] suspected to have Coronavirus/COVID-19? No / Unsure 05/21/2022 7:52 AM CDT documented as of this encounter Plan of Treatment Upcoming Encounters Date Type Department Care Team (Late st Contact Info) Description 04/01/2023 1:15 PM PROTECTION OFFICER Office Visit [address] [phone] Yolanda Wilkerson PAAnhC [address] [place] [address] [phone] 07/13/2023 8:00 AM CDT Virtual Visit [facility] [address]th [place] [phone] Deuce Majano PA-C [address] [place] [address] 840455 documented as of this encounter Visit Diagnoses Not on filedocumented in this encounter Care Teams General Foreman Relationship Specialty Start Date End Date [place] [address] PCP - General Family Medicine 04/02/21 Chapin Khan MD [address] [place] [address] Urology 05/10/20 Brionna Covarrubias, RN Registered Nurse Oncology 05/10/20 09/01/22 [facility] [address] [place] [address] Pharmacist Pharmacist Family Services Coordinator 12/25/20 Romi Fairbanks MD [facility] [address] [place], [place] 434425 Assigned Gastroenterology Provider 01/05/21 06/12/22 [facility] [address] [place] [address] 936185 Assigned MTM Pharmacist 11/12/21 06/26/22 Jeanette French, FATOUMATA [address] [place], [place] [phone] Specialty Surfboard Designer Gastroenterology 12/30/21 Tammy Greenberg MD [address] [place] [address] 508 [place], [place] 482665 Cardiovascular Disease 02/24/22 Genaro Palacios MD 6405 [facility] [address] [place] [address] Assigned Heart and Vascular Provider 03/28/22 Claude Rucker MD [address] [place] [address] Assigned Surgical Provider 04/11/22 Delroy Gore APRN LAUNDRY LABORER [address] [place] [address] Assigned Nephrology Provider 04/25/22 documented as of this encounter
--- OUTSIDE RECORDS SUMMARY | 2023-03-14 02:40 | XMS_ITS | Encounter Summary ---
Author Name Unknown Organization [facility] Address [address] [place] [address]. [place] [address] Care Team Providers Care Youth Advocate Name Role Phone Chapin Khan MD Unavailable [phone] Brionna Covarrubias RN Unavailable [phone] Danya Barraza [facility] Unavailable [phone] Romi Fairbanks MD Unavailable [phone] Maximino Arredondo MD Primary Care Provider [phone] Danya Barraza [facility] Unavailable [phone] Jeanette French RN Unavailable [phone] Tammy Greenberg MD Unavailable [phone] Genaro Palacios MD Unavailable [phone] Claude Rucker MD Unavailable [phone] Delroy Gore APRN QUALITY CONTROL CHECKER Unavailable [phone] Encounter Details Date Type Department Care Team (Late st Contact Info) Description 05/22/2022 11:30 AM CDT [facility] [address] [place] [address] Crohn's disease of large intestine (H) Social [...] st Contact Info) Description 04/01/2023 1:15 PM PSYCHIATRIC SOCIAL WORKER SUPERVISOR Office Visit [address] [phone] Yolanda Wilkerson PA-C [address] [place] [address] 516225 07/13/2023 8:00 AM CDT Virtual Visit [facility] [address] [place] [phone] Deuce Majano PA-C [address] [place] [address] [phone] documented as of this encounter Procedures Procedure Name Priority Date/Time Associated Diagnosis Comments CBC WITH PLATELETS AND DIFFERENTIAL Routine 05/22/2022 12:22 PM CDT Crohn's disease of large intestine (H) CBC WITH PLATELETS & DIFFERENTIAL Routine 05/22/2022 12:22 PM CDT Crohn's disease of large intestine (H) ERYTHROCYTE SEDIMENTATION RATE AUTO Routine 05/22/2022 12:22 PM CDT Crohn's disease of large intestine (H) DIFFERENTIAL Routine 05/22/2022 12:22 PM CDT Crohn's disease of large intestine (H) CRP INFLAMMATION Routine 05/22/2022 12:2 2 PM CDT Crohn's disease of large intestine (H) COMPREHENSIVE METABOLIC PANEL Routine 05/22/2022 12:22 PM CDT Crohn's disease of large intestine (H) documented in this encounter Results * (ABNORMAL) Manual Differential (05/22/2022 12:22 PM CDT) % Neutrophils 84 % 05/22/2022 7:20 PM CDT [facility] % Lymphocytes 9 % 05/22/2022 7:20 PM CDT [facility] % Monocytes 5 % 05/22/2022 7:20 PM CDT [facility] % Eosinophils 2 % 05/22/2022 7:20 PM CDT [facility] % Basophils 0 % 05/22/2022 7:20 PM CDT [facility] Absolute Neutrophils 6.2 1.6 - 8.3 10e3/uL 05/22/2022 7:20 PM CDT [facility] Absolute Lymphocytes 0.7(L) 0.8 - 5.3 10e3/uL 05/22/2022 7:20 PM CDT [facility] Absolute Monocytes 0.4 0.0 - 1.3 10e3/uL 05/22/2022 7:20 PM CDT [facility] Absolute Eosinophils 0.1 0.0 - 0.7 10e3/uL 05/22/2022 7:20 PM CDT [facility] Absolute Basophils 0.0 0.0 - 0.2 10e3/uL 05/22/2022 7:20 PM CDT [facility] RBC Morphology Confirmed RBC Indices 05/22/2022 7:20 PM CDT [facility] Platelet Assessment Automated Count Confirmed. Platelet morphology is normal. Automated Count Confirmed. Platelet morphology is normal. 05/22/2022 7:20 PM CDT [facility] Blood BLOOD SPECIMEN / Unknown Venipuncture / Unknown 05/22/2022 12:22 PM CDT 05/22/2022 12:22 PM CDT Romi Fairbanks MD LAB - BLOOD ORDERABL ES [facility] [address] Lab (1st floor, no room number) [place] [address], [facility] [phone] * (ABNORMAL) CBC with platelets and differential (05/22/2022 12:22 PM CDT) WBC Count 7.4 4.0 - 11.0 10e3/uL 05/22/2022 7:20 PM CDT [facility] RBC Count 2.22(L) 4.40 - 5.90 10e6/uL 05/22/2022 7:20 PM CDT [facility] Hemoglobin 7.9(L) 13.3 - 17.7 g/dL 05/22/2022 7:20 PM CDT [facility] Hematocrit 24.2(L) 40.0 - 53.0 % 05/22/2022 7:20 PM CDT [facility] MCV 109(H) 78 - 100 fL 05/22/2022 7:20 PM CDT [facility] MCH 35.6(H) 26.5 - 33.0 pg 05/22/2022 7:20 PM CDT [facility] MCHC 32.6 31.5 - 36.5 g/dL 05/22/2022 7:20 PM CDT [facility] RDW 14.2 10.0 - 15.0 % 05/22/2022 7:20 PM CDT [facility] Platelet Count 117(L) 150 - 450 10e3/uL 05/22/2022 7:20 PM CDT [facility] Blood BLOOD SPECIMEN / Unknown Venipuncture / Unknown 05/22/2022 12:22 PM CDT 05/22/2022 12:22 PM CDT Romi Fairbanks MD LAB - BLOOD ORDERABL [facility] [address] Lab (1st floor, no room number) [place] [address], [facility] [phone] * (ABNORMAL) Erythrocyte sedimentation rate auto (05/22/2022 12:22 PM CDT) Erythrocyte Sedimentation Rate 104(H) 0 - 20 mm/hr 05/22/2022 12:52 PM CDT [facility] Blood BLOOD SPECIMEN / Unknown Venipuncture / Unknown 05/22/2022 12:22 PM CDT 05/22/2022 12:22 PM CDT Romi Fairbanks MD LAB - BLOOD ORDERABL [facility] [address] [facility] Lab (no room number, 1st floor of clinic) [place] [address], [facility] [phone] * (ABNORMAL) CRP inflammation (05/22/2022 12:22 PM CDT) CRP Inflammation 26.70(H) <5.00 mg/L 05/22/2022 10:36 PM CDT [facility] Blood BLOOD SPECIMEN / Unknown Venipuncture / Unknown 05/22/2022 12:22 PM CDT 05/22/2022 12:22 PM CDT Romi Fairbanks MD LAB - BLOOD ORDERABL ES [facility] [address] [facility], [address] [place] [address], [place] [phone] * (ABNORMAL) Comprehensive metabolic panel (05/22/2022 12:22 PM CDT) Sodium 142 136 - 145 mmol/L 05/22/2022 10:36 PM CDT [facility] Potassium 4.8 3.4 - 5.3 mmol/L 05/22/2022 10:36 PM CDT [facility] Chloride 97(L) 98 - 107 mmol/L 05/22/2022 10:36 PM CDT [facility] Carbon Dioxide (CO2) 30(H) 22 - 29 mmol/L 05/22/2022 10:36 PM CDT [facility] Anion Gap 15 7 - 15 mmol/L 05/22/2022 10:36 PM CDT [facility] Urea Nitrogen 11.6 8.0 - 23.0 mg/dL 05/22/2022 10:36 PM CDT [facility] Creatinine 4.37(H) 0.67 - 1.17 mg/dL 05/22/2022 10:36 PM CDT [facility] Calcium 10.1 8.8 - 10.2 mg/dL 05/22/2022 10:36 PM CDT [facility] Glucose 166(H) 70 - 99 mg/dL 05/22/2022 10:36 PM CDT [facility] Alkaline Phosphatase 68 40 - 129 U/L 05/22/2022 10:36 PM CDT [facility] AST 18 10 - 50 U/L 05/22/2022 10:36 PM CDT [facility] ALT 16 10 - 50 U/L 05/22/2022 10:36 PM CDT [facility] Protein Total 6.8 6.4 - 8.3 g/dL 05/22/2022 10:36 PM CDT [facility] Albumin 3.8 3.5 - 5.2 g/dL 05/22/2022 10:36 PM CDT [facility] Bilirubin Total 0.5 <=1.2 mg/dL 05/22/2022 10:36 PM CDT [facility] GFR Estimate 14(L) >60 mL/min/1.7 3m2 05/22/2022 10:36 PM CDT [facility] Comment:eGFR calculated usin g 2020 CKD-EPI equation. Blood BLOOD SPECIMEN / Unknown Venipuncture / Unknown 05/22/2022 12:22 PM CDT 05/22/2022 12:22 PM CDT Romi Fairbanks MD LAB - BLOOD ORDERABL ES [facility] [address] [facility] [address], [address] [place] [address], [facility] [phone] documented in this encounter Visit Diagnoses Diagnosis Crohn's disease of large intestine (H) Regional enteritis of large intestine documented in this encounter Care Teams Youth Advocate Relationship Specialty Start Date End Date Maximino Arredondo MD [address] [place] [address] PCP - General Family Medicine 04/02/21 Chapin Khan MD [address] [place] [address] 745985 Urology 05/10/20 Brionna Covarrubias RN Registered Nurse Oncology 05/10/20 09/01/22 Danya Barraza [facility] [address] [place] [address] Pharmacist Pharmacist Clinical Laboratory Manager 12/25/20 Romi Fairbanks MD [facility] [address] [place], [place] [address] Assigned Gastroenterology Provider 01/05/21 06/12/22 Danya Barraza [facility] [address] [place] [address]113 Assigned MTM Pharmacist 11/12/21 06/26/22 Jeanette French, FATOUMATA [address] [place] [address] [phone] Specialty Sheep Herder Gastroenterology 12/30/21 Tammy Greenberg MD [address] [place] [address] [address] [place], [place] 305[address] Cardiovascular Disease 02/24/22 Genaro Palacios MD [address] [facility] [address] [place] [address] Assigned Heart and Vascular Provider 03/28/22 Claude Rucker MD [address] [place] [address] 104065 Assigned Surgical Provider 04/11/22 Delroy Gore APRN QUALITY CONTROL CHECKER [address] [place] [address] 925585 Assigned Nephrology Provider 04/25/22 documented as of this encounter
--- OUTSIDE RECORDS SUMMARY | 2023-03-14 02:40 | XMS_ITS | Encounter Summary ---
Author Name Unknown Organization [facility] Address [address] [place] [address]. [place] [address] Care Team Providers Care Methodologist Name Role Phone Chapin Khna MD Unavailable [phone] Brionna Covarrubias RN Unavailable [phone] Danya Barraza [facility] Unavailable [phone] Romi Fairbanks MD Unavailable [phone] Maximino Arredondo MD Primary Care Provider Danya Barraza [facility] Unavailable [phone] Jeanette French RN Unavailable [phone] Tammy Greenberg MD Unavailable [phone] Genaro Palacios MD Unavailable [phone] Claude Rucker MD Unavailable [phone] Delroy Gore APRN MAXILLOFACIAL PROSTHODONTIST Unavailable [phone] Reason for Visit * Reason Onset Date Comments Prior Auth - Medication 04/27/2022 Stelara 28 DAY DOSING Approved Encounter Details Date Type Department Care Team (Late st Contact Info) Description 04/27/2022 [facility] [address] 4th [place] [address] Romi Fairbanks MD [address] [address] Prior Auth - Medication (Stelara 28 DAY DOSING Approved) Social History Tobacco Use Types Packs/Day Years [...] encounter Miscellaneous Notes * Telephone Encounter - Luciana Archuleta - 06/01/2022 3:07 PM CDT Images from the original note were not included. * Telephone Encounter - Luciana Archuleta - 06/01/2022 12:13 PM CDT I called to check status on the appeal. Per rep. Appeal has been approved. Approval is being faxed over. Test claim does pay, continue to fill at [facility] Prior Authorization Approval Authorization Effective Date: Authorization Expiration Date: Medication: Stelara 28 DAY DOSING. Denied appealing Approved Dose/Quantity: 1 Reference #: [id number] [facility] - Expected CoPay: 0.00 CoPay Card Available: Foundation Assistance Needed: Which Pharmacy is filling the prescription (Not needed for infusion/clinic administered): Pharmacy Notified: Yes Patient Notified: yes * Telephone Encounter - Ralph Loja - 05/29/2022 9:12 AM CDT I called to check status on the appeal and it is still in process ref# [id number] due by 06/01 * Telephone Encounter - Ralph Loja - 05/26/2022 8:37 AM CDT I called to check status on the appeal and it is still in process ref# [id number] * Telephone Encounter - Ralph Loja - 05/20/2022 9:17 AM CDT I called to check status on the appeal and it is still in process ref# [id number]. Can take up to 30 days * Telephone Encounter - Ralph Loja - 05/14/2022 2:41 PM CDT Medication Appeal Initiation We have initiated an appeal for the requested medication: Medication: Stelara 28 DAY DOSING. Denied appealing Appeal Start Date: 05/14/2022 Insurance Company: [facility] - Comments: Faxed appeal letter * Telephone Encounter - Ralph Loja - 05/04/2022 10:59 AM CDT Images from the original note were not included. I have started a LMN and routed to Dr Fairbanks and Danya. Once the letter is complete I will start the appeal PRIOR AUTHORIZATION DENIED Medication: Stelara 28 DAY DOSING. denied Denial Date: 05/04/2022 Denial Rational: Appeal Information: * Telephone Encounter - Ralph Loja - 04/29/2022 10:57 AM CDT Had to call to start a qty limit PA ref# [id number] * Telephone Encounter - Ralph Loja - 04/27/2022 12:29 PM CDT Images from the original note were not included. PA Initiation Medication: Stelara. initiated Insurance Company: [employer] ([facility]) - Pharmacy Filling the Rx: Filling Pharmacy Phone: Filling Pharmacy Fax: Start Date: 04/27/2022 [id number] * Telephone Encounter - Dariana Pappas - 04/27/2022 12:11 PM CDT PA Needed Medication: Stelara. QTY/DS:1 for 28 NEW INS:no Insurance Company: [facility] commercial Pharmacy Filling the Rx: ni box PA : Per ins it will need an new qty limit PA they are unaware why the last two claims went thru Date of last fill: 03/31/2022 documented in this encounter Plan of Treatment Upcoming Encounters Date Type Department Care Team (Late st Contact Info) Description 04/01/2023 1:15 PM SLAGGER Office Visit [address] [phone] Yolanda Wilkerson PA-C [address] [place] [address] 07/13/2023 8:00 AM CDT Virtual Visit [facility] [address] 4th [place] [phone] Deuce Majano PA-C [address] [place] [address] 064505 documented as of this encounter Visit Diagnoses Not on filedocumented in this encounter Care Teams Methodologist Relationship Specialty Start Date End Date Maximino Arredondo MD [address] [place] [phone] PCP - General Family Medicine 04/02/21 Chapin Khan MD [address] [place] [address] Urology 05/10/20 Brionna Covarrubias, RN Registered Nurse Oncology 05/10/20 09/01/22 Danya Barraza, [facility] [address] [place] [address] Pharmacist Pharmacist Director Of Estate 12/25/20 Romi Fairbanks MD [address] [address] Assigned Gastroenterology Provider 01/05/21 06/12/22 Danya Barraza, [facility] [address] [place], [place] 6[address]405 Assigned MTM Pharmacist 11/12/21 06/26/22 Jeanette French, RN 9[address] [place], [place] 881015 Specialty Chemical Test Engineer Gastroenterology 12/30/21 Tammy Greenberg MD [address] [place] [address] 508 [place], [place] 354405 Cardiovascular Disease 02/24/22 Genaro Palacios MD 6[address] [facility] [place] [address] Assigned Heart and Vascular Provider 03/28/22 Claude Rucker MD [address] [place] [address] 087695 Assigned Surgical Provider 04/11/22 Delroy Gore APRN MAXILLOFACIAL PROSTHODONTIST [address] [place] [address] Assigned Nephrology Provider 04/25/22 documented as of this encounter
--- OUTSIDE RECORDS SUMMARY | 2023-03-14 02:40 | XMS_ITS | Encounter Summary ---
Author Name Unknown Organization [facility] Address [address] [place] [address]. [place] [address] Care Team Providers Care Alcoholic Counselor Name Role Phone Chapin Khan MD Unavailable [phone] Brionna Covarrubias RN Unavailable [phone] Danya Barraza [facility] Unavailable [phone] Romi Fairbanks MD Unavailable [phone] Maximino Arredondo MD Primary Care Provider [phone] Danya Barraza [facility] Unavailable [phone] Jeanette French RN Unavailable [phone] Tammy Greenberg MD Unavailable [phone] Genaro Palacios MD Unavailable [phone] Claude Rucker MD Unavailable [phone] Delroy Gore APRN CHEESE SPRAYER Unavailable [phone] Encounter Details Date Type Department Care Team (Late st Contact Info) Description 05/28/2022 [facility] [address] [place] [address] Romi Fairbanks MD [address] [address] Social History Tobacco Use Types [...] Telephone Encounter - Jeanette French RN - 05/28/2022 10:06 AM CDT See telephone encounter from 05/28/22. documented in this encounter Plan of Treatment Upcoming Encounters Date Type Department Care Team (Late st Contact Info) Description 04/01/2023 1:15 PM MOSS BLEACHER Office Visit [address] [address] Yolanda Wilkerson PA-C [address] [place] [address] [phone] 07/13/2023 8:00 AM CDT Virtual Visit [facility] [address] [place] [phone] Deuce Majano PA-C [address] [place] [address] 548215 documented as of this encounter Visit Diagnoses Not on filedocumented in this encounter Care Teams Alcoholic Counselor Relationship Specialty Start Date End Date Maximino Arredondo MD [address] [place] [phone] PCP - General Family Medicine 04/02/21 Chapin Khan MD [address] [place] [address] [id number] Urology 05/10/20 Brionna Covarrubias, FATOUMATA Registered Nurse Oncology 05/10/20 09/01/22 [facility] [address] [place] [address] [phone] Pharmacist Pharmacist Adjusto Writer Operator 12/25/20 Romi Fairbanks MD [address] [id number] Assigned Gastroenterology Provider 01/05/21 06/12/22 [facility] [address] [place] [address] Assigned MTM Pharmacist 11/12/21 06/26/22 Jeanette French, RN [address] [place] [address] 346995 Specialty Emergency Service Worker Gastroenterology 12/30/21 Tammy Greenberg MD [address] [place] [address] Cardiovascular Disease 02/24/22 Genaro Palacios MD [address] [place] [address] Assigned Heart and Vascular Provider 03/28/22 Claude Rucker MD [address] [place] [address] Assigned Surgical Provider 04/11/22 Delroy Gore APRN CHEESE SPRAYER [address] [place], [place] 884945 Assigned Nephrology Provider 04/25/22 documented as of this encounter
--- OUTSIDE RECORDS SUMMARY | 2023-03-14 02:40 | XMS_ITS | Encounter Summary ---
Author Name Unknown Organization [facility] Address [address] [place] [address]. [place] [address] Care Team Providers Care Check Cashier Name Role Phone Chapin Khan MD Unavailable [phone] Brionna Covarrubias RN Unavailable [phone] Danya Barraza [facility] Unavailable [phone] Romi Fairbanks MD Unavailable [phone] Maximino Arredondo MD Primary Care Provider [phone] Danya Barraza [facility] Unavailable [phone] Jeanette French RN Unavailable [phone] Tammy Greenberg MD Unavailable [phone] Genaro Palacios MD Unavailable [phone] Claude Rucker MD Unavailable [phone] Delroy Gore APRN BIO MEDICAL TECHNICIAN Unavailable [phone] Reason for Visit * Diagnostic Imaging Ultrasound (Routine) - Pending Review Specialty Diagnoses / Procedures Referred By Sommer t Referred To Contact Radiology. Diagnoses Aortic dissection, abdominal (H) Organ transplant candidate Procedures US Aorta/Ivc/Iliac Duplex Complete Delroy Gore APRN BIO MEDICAL TECHNICIAN [address] [place] [address] Referral ID Status Reason Start Date Expiration Date V isits Requested Visits Authorized [id number] Pending Review 04/17/2022 04/17/2023 1 1 Encounter Details Date Type Department Care Team (Latest Contact Info) Description 05/14/2022 8:30 AM CDT Ancillary Procedure [address] [address] Delroy Gore, PACKAGING LINE OPERATOR BIO MEDICAL TECHNICIAN [address] [place] [address] Aortic dissection, abdominal (H); Organ transplant candidate Social History Tobacco [...] st Contact Info) Description 04/01/2023 1:15 PM J2EE JAVA DEVELOPER Office Visit [address] [phone] Yolanda Wilkerson, PA-C [address] [place] [address] 07/13/2023 8:00 AM CDT Virtual Visit [facility] [address] [place] [phone] Deuce Majano PA-C [address] [place] [address] [phone] documented as of this encounter Procedures Procedure Name Priority Date/Time Associated Diagnosis Comments US AORTA/IVC/ILIAC DUPLEX COMPLETE Routine 05/14/2022 7:23 AM CDT Aortic dissection, abdominal (H) Organ transplant candidate documented in this encounter Results * US Aorta/Ivc/Iliac Duplex Complete (05/14/2022 7:23 AM CDT) Anatomical Region Laterality Modality Abdomen/Pelvis Ultrasound Impressions 05/14/2022 1:52 PM CDT IMPRESSION: 1. Normal aorta-femoral duplex arterial ultrasound. No aneurysm or stenosis demonstrated, however the common iliac arteries are heavily calcified bilaterally. Less wall calcification appreciated in bilateral external iliac arteries. 2. Normal cava-femoral duplex venous ultrasound. LOURDES SANTIAGO MD I have personally reviewed the examination and initial interpretation and I agree with the findings. LOURDES SANTIAGO MD Narrative 05/14/2022 1:52 PM CDT EXAMINATIONS : 1. Aorta-femoral duplex arterial ultrasound. 2. Cava-femoral duplex venous ultrasound. CLINICAL HISTORY: End-stage renal disease. Possible transplant candidate. COMPARISONS: CT abdomen and pelvis 11/20/2021. TECHNIQUE: Grayscale images obtained of the aorta. Grayscale, color Doppler, and Doppler waveform ultrasound performed from the distal aorta through the femoral arteries. Grayscale, color Doppler, Doppler waveform ultrasound performed from the inferior vena cava through the femoral veins. FINDINGS: AORTA: ? Infrarenal, distal: 1.0 cm diameter, 166 cm/s, triphasic RIGHT: ? COMMON ILIAC ARTERY, proximal: 293 cm/s, triphasic, 0.6 cm diameter ? COMMON ILIAC ARTERY, distal: 198 cm/s, triphasic, 0.6 cm diameter ? EXTERNAL ILIAC ARTERY, proximal: 138 cm/s, triphasic, 0.6 cm diameter ? EXTERNAL ILIAC ARTERY, mid: 185 cm/s, triphasic, 0.7 cm diameter ? EXTERNAL ILIAC ARTERY, distal: 191 cm/s, triphasic, 0.5 cm diameter ? COMMON FEMORAL ARTERY: 226 cm/s, triphasic, 0.6 cm diameter LEFT: ? COMMON ILIAC ARTERY, proximal: 206 cm/s, triphasic, 0.6 cm diameter ? COMMON ILIAC ARTERY, distal: 243 cm/s, triphasic, 0.6 cm diameter ? EXTERNAL ILIAC ARTERY, proximal: 160 cm/s, triphasic, 0.7 cm diameter ? EXTERNAL ILIAC ARTERY, mid: 171 cm/s, triphasic, 0.7 cm diameter ? EXTERNAL ILIAC ARTERY, distal: 172 cm/s, triphasic, 0.6 cm diameter ? COMMON FEMORAL ARTERY: 152 cm/s, triphasic, 0.6 cm diameter INFERIOR VENA CAVA: 68 cm/s, phasic RIGHT: ? COMMON ILIAC VEIN: 45 cm/s, phasic ? EXTERNAL ILIAC VEIN: 142 cm/s, phasic ? COMMON FEMORAL VEIN: 49 cm/s, phasic, fully compressible LEFT: ? COMMON ILIAC VEIN: 40 cm/s, phasic ? EXTERNAL ILIAC VEIN: 67 cm/s, phasic ? COMMON FEMORAL VEIN: 32 cm/s, phasic, fully compressible Procedure Note Lourdes Santiago MD - 05/14/2022 EXAMINATIONS : 1. Aorta-femoral duplex arterial ultrasound. 2. Cava-femoral duplex venous ultrasound. CLINICAL HISTORY: End-stage renal disease. Possible transplant candidate. COMPARISONS: CT abdomen and pelvis 11/20/2021. TECHNIQUE: Grayscale images obtained of the aorta. Grayscale, color Doppler, and Doppler waveform ultrasound performed from the distal aorta through the femoral arteries. Grayscale, color Doppler, Doppler waveform ultrasound performed from the inferior vena cava through the femoral veins. FINDINGS: AORTA: Infrarenal, distal: 1.0 cm diameter, 166 cm/s, triphasic RIGHT: COMMON ILIAC ARTERY, proximal: 293 cm/s, triphasic, 0.6 cm diameter COMMON ILIAC ARTERY, distal: 198 cm/s, triphasic, 0.6 cm diameter EXTERNAL ILIAC ARTERY, proximal: 138 cm/s, triphasic, 0.6 cm diameter EXTERNAL ILIAC ARTERY, mid: 185 cm/s, triphasic, 0.7 cm diameter EXTERNAL ILIAC ARTERY, distal: 191 cm/s, triphasic, 0.5 cm diameter COMMON FEMORAL ARTERY: 226 cm/s, triphasic, 0.6 cm diameter LEFT: COMMON ILIAC ARTERY, proximal: 206 cm/s, triphasic, 0.6 cm diameter COMMON ILIAC ARTERY, distal: 243 cm/s, triphasic, 0.6 cm diameter EXTERNAL ILIAC ARTERY, proximal: 160 cm/s, triphasic, 0.7 cm diameter EXTERNAL ILIAC ARTERY, mid: 171 cm/s, triphasic, 0.7 cm diameter EXTERNAL ILIAC ARTERY, distal: 172 cm/s, triphasic, 0.6 cm diameter COMMON FEMORAL ARTERY: 152 cm/s, triphasic, 0.6 cm diameter INFERIOR VENA CAVA: 68 cm/s, phasic RIGHT: COMMON ILIAC VEIN: 45 cm/s, phasic EXTERNAL ILIAC VEIN: 142 cm/s, phasic COMMON FEMORAL VEIN: 49 cm/s, phasic, fully compressible LEFT: COMMON ILIAC VEIN: 40 cm/s, phasic EXTERNAL ILIAC VEIN: 67 cm/s, phasic COMMON FEMORAL VEIN: 32 cm/s, phasic, fully compressible IMPRESSION: 1. Normal aorta-femoral duplex arterial ultrasound. No aneurysm or stenosis demonstrated, however the common iliac arteries are heavily calcified bilaterally. Less wall calcification appreciated in bilateral external iliac arteries. 2. Normal cava-femoral duplex venous ultrasound. LOURDES SANTIAGO MD I have personally reviewed the examination and initial interpretation and I agree with the findings. LOURDES SANTIAGO MD Delroy Gore PACKAGING LINE OPERATOR BIO MEDICAL TECHNICIAN IMG US ORDERA BLES documented in this encounter Visit Diagnoses Diagnosis Aortic dissection, abdominal (H) Dissection of aorta, abdominal Organ transplant candidate Awaiting organ transplant status documented in this encounter Care Teams Check Cashier Relationship Specialty Start Date End Date Maximino Arredondo MD [address] [place] [phone] PCP - General Family Medicine 2/16/22 Chapin Khan MD [address] [place] [address] [phone] Urology 05/10/20 Brionna Covarrubias, RN Registered Nurse Oncology 05/10/20 09/01/22 [facility] [address] [place] [address]281 Pharmacist Pharmacist Tank Car Mechanic 12/25/20 Romi Fairbanks MD [address] [phone] Assigned Gastroenterology Provider 01/05/21 06/12/22 [facility] [address] [place] [address] [phone] Assigned MTM Pharmacist 11/12/21 06/26/22 Jeanette French, RN [address] [place] [address] [phone] Specialty Hand Bindery Assembly Worker Gastroenterology 12/30/21 Tammy Greenberg MD [address] [place] [address] [address] [place], [place] 407585 Cardiovascular Disease 02/24/22 Genaro Palacios MD [address] [place] 010265 Assigned Heart and Vascular Provider 03/28/22 Claude Rucker MD [address] [place] [address] [phone] Assigned Surgical Provider 04/11/22 Delroy Gore APRN BIO MEDICAL TECHNICIAN [address] [place] [address] Assigned Nephrology Provider 04/25/22 documented as of this encounter
--- OUTSIDE RECORDS SUMMARY | 2023-03-14 02:40 | XMS_ITS | Encounter Summary ---
Author Name Unknown Organization [facility] Address [address] [place] [address]. [place] [address] Care Team Providers Care Commercial Art Instructor Name Role Phone Chapin Khan MD Unavailable [phone] Brionna Covarrubias RN Unavailable [phone] Danya Barraza [facility] Unavailable [phone] Romi Fairbanks MD Unavailable [phone] Maximino Arredondo MD Primary Care Provider [phone] Danya Barraza [facility] Unavailable [phone] Jeanette French RN Unavailable [phone] Tammy Greenberg MD Unavailable [phone] Genrao Palacios MD Unavailable [phone] Claude Rucker MD Unavailable [phone] Delroy Gore APRN CHIEF JUVENILE PROBATION OFFICER Unavailable [phone] Chapin Ruvalcaba MD Unavailable [phone] Romi aFirbanks MD Unavailable [phone] Reason for Visit * Reason Onset Date Comments Anemia 05/28/2022 Blood Transfusion 05/28/2022 Encounter Details Date Type Department Care Team (Late st Contact Info) Description 05/28/2022 Telephone [facility] [address] [place] [address] [place] [address] Jeanette French, RN [address] [place] [address] Anemia; Blood Transfusion Social History Tobacco Use Types Packs/Day Years [...] Telephone Encounter - Jeanette French RN - 06/19/2022 3:02 PM CDT Therapy plan initiated for [address] Fairbanks completed the telephone blood transfusion consent. Message sent to [facility] for help with coordinating a type & screen prior to transfusion. * Telephone Encounter - Jeanette French RN - 06/16/2022 9:55 AM CDT Called patient to discuss the plan. He recently spoke with Dr. Barnard and was told the logistics of receiving blood with dialysis are too complicated. He is agreeable to our GI team ordered blood and coordinating the transfusions. The patient confirmed he does not have issues with fluid overload and would be amenable to receiving the transfusions outside of his dialysis schedule. Patient remains symptomatic of anemia with severe lethargy. Will plan for [address] Fairbanks will call to consent the patient. * Telephone Encounter - Jeanette French RN - 06/16/2022 9:50 AM CDT Received a return call from Dr. Barnard's medical office scheduler. He states he and his Nephrology team are managing the patient's anemia in other manners. Also confirmed [facility] does not administer blood transfusions. * Telephone Encounter - Jeanette French RN - 06/04/2022 11:[address] Barnard's office at [facility] in [place]. Spoke with his medical office scheduler. She will pass a message to Dr. Barnard for Dr. Fairbanks's request of 2 units of blood with the patient's next dialysis run at [facility]. If he is agreeable, he will write orders and send them directly to [facility]. Provided my direct call back number for a finalized plan or any questions. * Telephone Encounter - Jeanette French RN - 05/28/2022 9:36 AM CDT Called patient for symptom assessment relating to labs. He is still taking Stelara Q8w as we appealthe quantity limit PA for Q4w dosing. He has no symptoms of active disease. He reports feeling great from a GI standpoint. His only symptom he is currently experiencing is fatigue. Likely related to Hgb 7.9. He reports he gets some sort of iron with his dialysis runs. He uses [facility] in [place], [place]. His merchandising lead is Dr. Barnard at [facility] in [place]. * Telephone Encounter - Jeanette French RN - 05/28/2022 9:32 AM CDT ----- Message from Romi Fairbanks MD sent at 05/26/2022 4:37 PM CDT ----- FYI. Can you please follow up with him to see how he's doing? If active disease, may need budesonide/IV iron. -E documented in this encounter Plan of Treatment Upcoming Encounters Date Type Department Care Team (Late st Contact Info) Description 04/01/2023 1:15 PM INFORMATION ASSURANCE SPECIALIST Office Visit [address] [phone] Yolanda Wilkerson, PAAnhC [address] [place] [address] [phone] 07/13/2023 8:00 AM CDT Virtual Visit [facility] [address] [place] [address] [place] [phone] Deuce Majano PA-C [address] [place] [address] [phone] documented as of this encounter Visit Diagnoses Diagnosis Anemia- Primary Anemia, unspecified Crohn's disease of large intestine with complication (H) Regional enteritis of large intestine documented in this encounter Care Teams Commercial Art Instructor Relationship Specialty Start Date End Date [place] [phone] PCP - General Family Medicine 04/02/21 Chapin Khan MD [address] [place] [address] Urology 05/10/20 Brionna Covarrubias, RN Registered Nurse Oncology 05/10/20 09/01/22 Danya Barraza, [facility] [address] [place] [address]753 Pharmacist Pharmacist Deputy Sheriff Generalist/Bailiff 12/25/20 Romi Fairbanks MD [facility] [address] [place], [place] 177275 Assigned Gastroenterology Provider 01/05/21 06/12/22 [facility] [address] [place] [address] 229065 Assigned MTM Pharmacist 11/12/21 06/26/22 Jeanette French, FATOUMATA [address] [place], [place] [phone] Specialty Gauge And Weigh Machine Operator Gastroenterology 12/30/21 Tammy Greenberg MD [address] [place] [address] [address] [place] [address] Cardiovascular Disease 02/24/22 Genaro Palacios MD [address] [facility] [address] [place] [address] Assigned Heart and Vascular Provider 03/28/22 Claude Rucker MD [address] [place] [address] Assigned Surgical Provider 04/11/22 Delroy Gore APRN CHIEF JUVENILE PROBATION OFFICER [address] [place] [address] Assigned Nephrology Provider 04/25/22 Chapin Ruvalcaba MD [address] [facility] [address] [place] [address] Assigned Gastroenterology Provider 06/13/22 06/19/22 Romi Fairbanks MD [facility] [address] [place] [address] Assigned Gastroenterology Provider 06/20/22 08/14/22 documented as of this encounter
--- OUTSIDE RECORDS SUMMARY | 2023-03-14 02:40 | XMS_ITS | Encounter Summary ---
Author Name Unknown Organization [place] Address [address] [place] [address]. [place] [address] Care Team Providers Care Survey Technician Name Role Phone Chapin Khan MD Unavailable [phone] Brionna Covarrubias RN Unavailable [phone] Danya Barraza [facility] Unavailable [phone] Romi Fairbanks MD Unavailable [phone] Maximino Arredondo MD Primary Care Provider [phone] Danya Barraza [facility] Unavailable [phone] Jeanette French RN Unavailable [phone] Tammy Greenberg MD Unavailable [phone] Genaro Palacios MD Unavailable [phone] Claude Rucker MD Unavailable [phone] Reason for Referral * Diagnostic Imaging Ultrasound (Routine) - Pending Review Specialty Diagnoses / Procedures Referred By Contac t Referred To Contact Radiology. Diagnoses Arteriovenous fistula (H24) Subclavian vein occlusion, left (H) Procedures US Ext Arterial Venous Dialys Acs Graft Genaro Palacios MD [address] [place] [address] Referral ID Status Reason Start Date Expiration Date V isits Requested Visits Authorized [id number] Pending Review 04/16/2022 04/16/2023 1 1 ERY ANALYST Reason for Visit * Reason Comments Telephone Encounter Details Date Type Department Care Team (Latest Contact Info) Description 04/16/2022 9:00 AM IMAGERY ANALYST Virtual Visit [facility] [address] [place] [phone] Genaro Palacios MD [address] [place] [address] Arteriovenous fistula (H) (Primary Dx); Subclavian vein occlusion, left (H) Social History Tobacco Use Types Packs/Day [...] Coronavirus/COVID-19? No / Unsure 04/15/2022 10:35 PM IMAGERY ANALYST documented as of this encounter Progress Notes * Genaro Palacios MD - 04/16/2022 9:00 AM CST [facility] [place] [facility] Moisés Whelan returns for follow-up. He has a left upper arm brachial to cephalic fistula with recurrent arm swelling due to subclavian vein occlusion that could not be recannulated by interventional radiology. Fistula itself is widely dilated and has been functioning well. Outflow revision with a 10 mm thin-walled ringed propaten PTFE bypass graft from the infraclavicular subclavian vein to the internal jugular vein performed 03/31/2022. Significant improvement with hisswelling following the procedure. Fistula has been functioning well. Phone-Visit Details Type of service: Phone Visit Originating Location (pt. Location): Home Distant Location (provider location): On-site Platform used for Visit: Phone TELEPHONE FOLLOW-UP: He reports that he is doing quite well. The arm swelling is essentially completely resolved. He did have some mild bruising around the surgical incisions which also is completelyresolved. Fistula is working very well and much easier to access due to the resolution of the arm swelling. No notice occasionally in both of his forearms at night some hypersensitivity and tingling. They did try some oxycodone and this was not helpful. This should not be related to the surgery since we are well away from the brachial plexus, etc.-- this is improving per patient. We will plan a duplex ultrasound of the outflow revision here in the clinic in 6 to 8 weeks with anoffice visit at that time. 5 minutes with the patient on the phone today being completed at 0830 hrs. Genaro Palacios MD This note was created using [employer] voice recognition software which may result in cook helper preserves errors. ERY ANALYST * Sonal Galindo - 04/16/2022 9:00 AM CST Ziggy is a 62 year old who is being evaluated via a billable telephone visit. What phone number would you like to be contacted at? [phone] How would you like to obtain your AVS? MyChart Sonal Galindo MA ERY ANALYST documented in this encounter Plan of Treatment Upcoming Encounters Date Type Department Care Team (Late st Contact Info) Description 04/01/2023 1:15 PM IMAGERY ANALYST Office Visit [address] [phone] Yolanda Wilkerson PA-C [address] [place] [address] [phone] 07/13/2023 8:00 AM CDT Virtual Visit [facility] [address] 4th [place] [phone] Deuce Majano PA-C [address] [place] [address] [phone] documented as of this encounter Results * US Ext Arterial [...] this encounter Visit Diagnoses Diagnosis Arteriovenous fistula (H24)- Primary Arteriovenous fistula, acquired Subclavian vein occlusion, left (H) Acute venous embolism and thrombosis of subclavian veins Arteriovenous fistula (H24) Arteriovenous fistula, acquired Subclavian vein occlusion, left (H) Acute venous embolism and thrombosis of subclavian veins documented in this encounter Care Teams Survey Technician Relationship Specialty Start Date End [place] [address] PCP - General Family Medicine 04/02/21 Chapin Khan MD [address] [place] [address] [phone] Urology 05/10/20 Brionna Covarrubias, FATOUMATA Registered Nurse Oncology 05/10/20 09/01/22 Danya Barraza [facility] [address] [place] [address] Pharmacist Pharmacist Fertilizer Mixer 12/25/20 Romi Fairbanks MD [address] 018945 Assigned Gastroenterology Provider 01/05/21 06/12/22 Danya Barraza [facility] [address] [place], [place] [phone] Assigned [place] Pharmacist 11/12/21 06/26/22 Jeanette French, RN [address] [place], [place] 089035 Specialty Leather Stamper Gastroenterology 12/30/21 Tammy Greenberg MD [address] [place] [address] [address] [place], [place] 881605 Cardiovascular Disease 02/24/22 Genaro Palacios MD [address] [facility] [address] [place] [address] Assigned Heart and Vascular Provider 03/28/22 Claude Rucker MD [address] [place] [address] 328215 Assigned Surgical Provider 04/11/22 documented as of this encounter
--- OUTSIDE RECORDS SUMMARY | 2023-03-14 02:40 | XMS_ITS | Encounter Summary ---
Author Name Unknown Organization [place] Address [address] [place] [address]. [place] [address] Care Team Providers Care Hydraulic Spinner Name Role Phone Chapin Khan MD Unavailable [phone] Brionna Covarrubias RN Unavailable [phone] Danya Barraza [facility] Unavailable Romi Fairbanks MD Unavailable [phone] Maximino Arredondo MD Primary Care Provider Danya Barraza [facility] Unavailable Jeanette French RN Unavailable [phone] Tammy Greenberg MD Unavailable [phone] Genaro Palacios MD Unavailable [phone] Claude Rucker MD Unavailable [phone] Reason for Referral * Diagnostic Imaging Ultrasound (Routine) - Pending Review Specialty Diagnoses / Procedures Referred By Contac t Referred To Contact Radiology. Diagnoses Aortic dissection, abdominal (H) Organ transplant candidate Procedures US Aorta/Ivc/Iliac Duplex Complete Delroy Gore, WOOD HEEL BACK LINER COMMUNITY ENGAGEMENT REPRESENTATIVE [address] [place] [address] Referral ID Status Reason Start Date Expiration Date V isits Requested Visits Authorized [id number] Pending Review 04/17/2022 04/17/2023 1 1 RNET CONSULTANT Encounter Details Date Type Department Care Team (Late st Contact Info) Description 04/16/2022 1:00 PM INTERNET CONSULTANT Virtual Visit [facility] [address] [address] Delroy Gore APRN CNP [address] [place] [address] Organ transplant candidate (Primary Dx); Aortic dissection, abdominal (H); Current smoker; History of basal cell carcinoma Social History [...] Coronavirus/COVID-19? No / Unsure 04/15/2022 10:35 PM INTERNET CONSULTANT documented as of this encounter Progress Notes * Delroy Gore APRN CNP - 04/16/2022 1:00 PM CST Ziggy is a 62 year old who is being evaluated via a billable telephone visit. What phone number would you like to be contacted at? [phone] How would you like to obtain your AVS? MyChart Distant Location (provider location): On-site Phone call duration: 13 minutes TRANSPLANT NEPHROLOGY WAITLIST VISIT Assessment and Plan: # Kidney Transplant Wait List Evaluation: Patient is a good candidate overall. Patient is still in evaluation phase. Recommend transplant surgery visit as it has been 2 years since he was seen and this visit was limited by phone. Also need aortoiliac US given findings of chronic distal aortic dissection on 04/2021 MRCP. 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 # Cardiac Risk: - PAF (not on AC) - 04/2020 ECHO with normal LVEF ~ 60-65%, mild to mod mitral insufficiency. - 06/2020 coronary angiogram with minimal non-obstructive coronary artery disease # Chronic distal aortic dissection (04/2021 MRCP): will get aortoiliac US. # Crohn's disease: dx age 15, s/p multiple bowel resections with minimal bowel remaining. His last EGD in 2019 showed some active disease, however, biopsies were negative. Managing well with ustekinumab injections every 4 weeks. 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 Urology recommended a 1 year follow up US. # Current smoker: trying to quit. Encouraged cessation. # Nonmelanoma skin cancer: needs derm if not seen in the past year. # Health Maintenance: Colonoscopy: Up to date and Dental: Not up to date Discussed the risks and benefits of a transplant, including the risk of surgery and immunosuppression medications. Patient presently appears to be enough of an acceptable kidney transplant recipient candidate to have any potential kidney donors start the evaluation process. Patient???s overall re-evaluation may require further discussion in the Transplant Program???s multidisciplinary selection committee for a final recommendation on the patient???s suitability for transplant. Reason for Visit: Moisés Whelan is a 62 year old male with ESKD from unknown etiology, who presents for kidney transplant wait list evaluation. Date of Initial Transplant Evaluation: 04/2020 Current Transplant Phase: Evaluation: Active Official UNOS Listing Date: Blood Type: A cPRA: 23% Date of cPRA: 04/2020 Extraction Operator: Latrice Petty Transplant Office phone number [phone] Previous Medical Issues: # cardiology: cath done # TIA: carotid US <50% stenosis in 05/2020. # Left renal mass: see above History of Present Illness: Moisés Whelan is a 62-year-old male who presents for wait list evaluation with history of ESKD from unknown etiology, on HD since 04/2020, PAF, distal aortic dissection, tobacco use, crohn's disease (s/p right blake (1974) and further resection with colostomy dn take down in 2005), TIAs, renal cyst and IPMN s/p partial pancreatectomy (path benign). 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 HD; Primary [employer] Teacher: Dr. Barnard , blood pressures controlled, SBPs 150-170 mmHg, still making urine. Cardiac/Vascular Disease History: 04/2020 ECHO with normal LVEF ~ 60-65%, mild to mod mitral insufficiency. Minimal non-obstructive coronary artery disease in 06/2020 coronary angiogram. Arrhythmia: Yes; PAF (not on AC) Pulmonary Hypertension: No Valvular Disease: No Other: None New Cardiac/Vascular Events: No Functional Capacity/Frailty: Not participating in any exercise, but has no limitations with walking. Able to walk 2+ miles OK and do a flight of stairs without chest pains or shortness of breath. Allergy Testing Questions: Medication that caused a reaction Other drugs: Lisinopril - anaphylaxsis Antibiotics used that didn't give an allergic reaction? None COVID Vaccination Up To Date: Yes Other Pertinent Transplant Surgical Issues: Recent Blood Transfusion: No Previous Abdominal Transplant: No Bladder Dysfunction: No Chronic/Recurrent Infections: No Chronic Anticoagulation: No Jehovah???s Witness: No Active Problem List: Patient Active Problem List Diagnosis ??? Acquired cyst of kidney ??? ESRD (end stage renal disease) (H) ??? Organ transplant candidate ??? NSTEMI (non-ST elevated myocardial infarction) (H) ??? Atrial fibrillation (H) ??? Benign essential hypertension ??? Crohn's disease of large intestine (H) ??? IPMN (intraductal papillary mucinous neoplasm) ??? Status post repair of arteriovenous fistula Personal History: Current smoker Allergies: Allergies Allergen Reactions ??? Lisinopril Anaphylaxis and Other (See Comments) Shortness of breath Medications: Current Outpatient Medications Medication Sig ??? amLODIPine (NORVASC) 10 MG tablet Take 10 mg by mouth daily ??? calcitRIOL (ROCALTROL) 0.5 MCG capsule Take 1.5 mcg by mouth daily ??? calcium acetate (CALPHRON) 667 MG TABS tablet Take 2,668 mg by mouth 3 times daily ??? carvedilol (COREG) 12.5 MG tablet Take 12.5 mg by mouth 2 times daily ??? clobetasol (TEMOVATE) 0.05 % external ointment Apply topically 2 times daily ??? folic acid (FOLVITE) [...] ( 90 mg) subcutaneous every 4 weeks. Current Facility-Administered Medications Medication ??? lidocaine 1% with EPINEPHrine 1:100,000 injection 3 mL Vitals: There were no vitals taken for this visit. RNET CONSULTANT documented in this encounter Plan of Treatment Upcoming Encounters Date Type Department Care Team (Late st Contact Info) Description 04/01/2023 1:15 PM INTERNET CONSULTANT Office Visit [address] [address] Yolanda Wilkerson PA-C [address] [place] [address] [phone] 07/13/2023 8:00 AM CDT Virtual Visit [facility] [address] 4th [place] [phone] Deuce Majano PA-C [address] [place], [place] [phone] documented as of this encounter Results * US Aorta/Ivc/Iliac Duplex [...] the findings. LOURDES SANTIAGO MD Delroy Gore APRN [facility] US ORDERA BLES documented in this encounter Visit Diagnoses Diagnosis Organ transplant candidate- Primary Awaiting organ transplant status Aortic dissection, abdominal (H) Dissection of aorta, abdominal Current smoker Tobacco use disorder History of basal cell carcinoma Personal history of other malignant neoplasm of skin Aortic dissection, abdominal (H) Dissection of aorta, abdominal Organ transplant candidate Awaiting organ transplant status documented in this encounter Care Teams Hydraulic Spinner Relationship Specialty Start Date End Date [place] [address] PCP - General Family Medicine 04/02/21 Chapin Khan MD [address] [place] [address] Urology 05/10/20 Brionna Covarrubias, RN Registered Nurse Oncology 05/10/20 09/01/22 [facility] [address] [place] [address] Pharmacist Pharmacist Hoop Maker Helper Machine 12/25/20 Romi Fairbanks MD [facility] [address] [place] [address] 048275 Assigned Gastroenterology Provider 01/05/21 06/12/22 [facility] [address] [place] [address] [phone] Assigned MTM Pharmacist 11/12/21 06/26/22 Jeanette French, FATOUMATA [address] [place] [address] 975295 Specialty Asbestos Shingle Roofer Gastroenterology 12/30/21 Tammy Greenberg MD [address] [place] [address] [address] [place] [address] Cardiovascular Disease 02/24/22 Genaro Palacios MD [address] [place] [address] Assigned Heart and Vascular Provider 03/28/22 Claude Rucker MD [address] [place], [place] 8[address] Assigned Surgical Provider 04/11/22 documented as of this encounter
--- OUTSIDE RECORDS SUMMARY | 2023-03-14 02:40 | XMS_ITS | Encounter Summary ---
Author Name Unknown Organization [place] Address [address] [place] [address]. [place] [address] Care Team Providers Care Special Assets Officer Name Role Phone Chapin Khan MD Unavailable [phone] Brionna Covarrubias RN Unavailable [phone] Danya Barraza [facility] Unavailable [phone] Romi Fairbanks MD Unavailable [phone] Maximino Arredondo MD Primary Care Provider [phone] Danya Barraza [facility] Unavailable [phone] Jeanette French RN Unavailable [phone] Tammy Greenberg MD Unavailable [phone] Genaro Palacios MD Unavailable [phone] Claude Rucker MD Unavailable [phone] Encounter Details Date Type Department Care Team (Latest Contact Info) Description 04/15/2022 Travel Social History Tobacco Use Types Packs/Day [...] Coronavirus/COVID-19? No / Unsure 04/15/2022 10:35 PM SUNGLASS CLIP ATTACHER documented as of this encounter Plan of Treatment Upcoming Encounters Date Type Department Care Team (Late st Contact Info) Description 04/01/2023 1:15 PM SUNGLASS CLIP ATTACHER Office Visit [address] [phone] Yolanda Wilkerson, PAAnhC [address] [place] [address] 07/13/2023 8:00 AM CDT Virtual Visit [facility] [address] [phone] Deuce Majano PA-C [address] [place] [address] [phone] documented as of this encounter Visit Diagnoses Not on filedocumented in this encounter Care Teams Special Assets Officer Relationship Specialty Start Date End Date Maximino Arredondo MD [address] [place] [phone] PCP - General Family Medicine 04/02/21 Chapin Khan MD [address] [place] [address] Urology 05/10/20 Brionna Covarrubias, RN Registered Nurse Oncology 05/10/20 09/01/22 [facility] [address] [place] [address] Pharmacist Pharmacist Gas Roller Operator 12/25/20 Romi Fairbanks MD [facility] [address] [place] [address] Assigned Gastroenterology Provider 01/05/21 06/12/22 [facility] [address] [place] [address] 495755 Assigned MTM Pharmacist 11/12/21 06/26/22 Jeanette French, FATOUMATA [address] [place] [address] [phone] Specialty [facility] 12/30/21 Tammy Greenberg MD [address] [place] [address] [address] [place] [address] Cardiovascular Disease 02/24/22 Genaro Palacios MD [address] [facility] [address] [place] [address] Assigned Heart and Vascular Provider 03/28/22 Claude Rucker MD [address] [place] [address] Assigned Surgical Provider 04/11/22 documented as of this encounter
--- OUTSIDE RECORDS SUMMARY | 2023-03-14 02:40 | XMS_ITS | Encounter Summary ---
Author Name Unknown Organization [place] Address [address] [place] [address]. [place] [address] Care Team Providers Care Test Desk Supervisor Name Role Phone Chapin Khan MD Unavailable [phone] Brionna Covarrubias RN Unavailable [phone] Danya Barraza [facility] Unavailable [phone] Romi Fairbanks MD Unavailable [phone] Maximino Arredondo MD Primary Care Provider [phone] Danya Barraza [facility] Unavailable [phone] Jeanette French RN Unavailable [phone] Tammy Greenberg MD Unavailable [phone] Genaro Palacios MD Unavailable [phone] Claude Rucker MD Unavailable [phone] Delroy Gore APRN STEREO PLOTTER OPERATOR Unavailable [phone] Reason for Referral * Diagnostic Imaging Ultrasound (Routine) - Pending Review Specialty Diagnoses / Procedures Referred By Contusama t Referred To Contact Radiology. Diagnoses ESRD (end stage renal disease) on dialysis (H) Arteriovenous fistula (H24) Procedures US Ext Arterial Venous Dialys Acs Graft Genaro Palacios MD [address] [facility] [address] [place] [address] Referral ID Status Reason Start Date Expiration Date V isits Requested Visits Authorized [id number] Pending Review 05/28/2022 05/28/2023 1 1 Reason for Visit * Reason Comments RECHECK History of left AVF revision with PTFE graft from infraclavicular subclavian vein to internal jugular vein on 03/31/22; 6-8 week follow up to 04/16/[address] Palacios. Encounter Details Date Type Department Care Team (Late st Contact Info) Description 05/28/2022 9:00 AM CDT Office Visit [facility] [place] [address] [place] [phone] Genaro Palacios MD [address] [place] [address] ESRD (end stage renal disease) on dialysis (H) (Primary Dx); Arteriovenous fistula (H) Social History Tobacco Use Types Packs/Day [...] Sign Reading Time Taken Comments Blood Pressure 161/65 05/28/2022 8:29 AM CDT Pulse 80 05/28/2022 8:29 AM CDT Temperature - - Respiratory Rate - - Oxygen Saturation - - Inhaled Oxygen Concentration - - Weight - - Height - - Body Mass Index - - documented in this encounter Progress Notes * Genaro Palacios MD - 05/28/2022 9:00 AM CDT Images from the original note were not included. [facility]\ Moisés Whelan returns for vascular follow-up. On chronic hemodialysis via left upper arm brachial to cephalic fistula. 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 03/31/2022 outflow revision with a 10 mm thin-walled ringed propatent PTFE bypass graft from the infraclavicular subclavian into the internal jugular vein with significant improvement in swelling. Doing well on follow-up by telephone on 04/16/2022. Reports complete resolution of swelling and the fistula has been working well. However, did complain of bilateral arm tingling of uncertain etiology. 05/14/2022 abdominal aortic and venous duplex. No aortic/iliac aneurysms nor stenosis despite elevated calcified common iliac arteries. Normal venous exam. PMH: Medications reviewed in [facility]. No recent changes. Still with occasional smoking Dialysis at the [facility] unit. Fistula has been working very well with no issues at all. Swelling has essentially completely resolved in his left arm. Exam: Alert and appropriate. Normal affect. Blood pressure 161/65 right arm. Pulse 80 Chest =clear Cardiovascular= regular rate Extremities= strong pulse within left upper arm fistula. Chronic mild aneurysmal dilatation midportion with overlying skin fine. Minimal arm swelling Well-healed clavicular neck incision Duplex today reveals everything is widely patent. The PTFE interposition graft measures at least 8.5 mm in diameter and more importantly widely patent anastomosis to the internal jugular vein. We do see a stenosis just beyond the brachial artery anastomosis but this affects less than 50% of the diameter. Unclear whether this is chronic even after reviewed prior fistulogram since they were concentrating on the outflow subclavian vein at that time. This does explain the elevated velocity at that level. Excellent outflow volume of 907 mL/min. IMPRESSION: #1. Widely patent left upper arm brachial to cephalic fistula with outflow revision to internal jugular vein. No problems at all with dialysis. Excellent flow rates. Recheck duplex in approximately 4 months. #2. 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 With the high flow rates this is not a clinical concern and actually with his markedly decreased outflow resistance this is acting almost like a banding of the fistula to make sure he does not have such high flow outflow that could lead to congestive heart failure. Discussed with patient. 20 minutes with patient today including chart review. We will see him again in 4 months. Genaro Palacios MD This note was created using [employer]th[employer] voice recognition software which may result in optical design engineer errors. CC: [facility] dialysis unit * Sonal Galindo - 05/28/2022 9:00 AM CDT [facility] Patient is here for a follow up. Pt is currently taking Statin. BP (!) 161/65 (BP Location: Right arm, Patient Position: Chair, Cuff Size: Adult Regular) Pulse 80 The provider has been notified that the patient has no concerns. Questions patient would like addressed today are: N/A. Refills are needed: N/A Has homecare services and agency name: Hailey Galindo MA documented in this encounter Plan of Treatment Upcoming Encounters Date Type Department Care Team (Late st Contact Info) Description 04/01/2023 1:15 PM ROLL UP OPERATOR Office Visit [address] [address] Yolanda Wilkerson [facility] [address] [place] [address] 07/13/2023 8:00 AM CDT Virtual Visit [facility] [address] [place] [address] Deuce Majano PA-C [address] [place] [address] [phone] documented as of this encounter Results * [...] dialysis (H)- Primary End stage renal disease Arteriovenous fistula (H24) Arteriovenous fistula, acquired ESRD (end stage renal disease) on dialysis (H) End stage renal disease Arteriovenous fistula (H24) Arteriovenous fistula, acquired documented in this encounter Care Teams Test Desk Supervisor Relationship Specialty Start Date End Date [place] [address] PCP - General Family Medicine 04/02/21 Chapin Khan MD [address] [place] [address] Urology 05/10/20 Brionna Covarrubias, FATOUMATA Registered Nurse Oncology 05/10/20 09/01/22 Danya Barraza [facility] [address] [place] [address] Pharmacist Pharmacist Lining Marker 12/25/20 Romi Fairbanks MD [facility] [address] [place], [place] [address] Assigned Gastroenterology Provider 01/05/21 06/12/22 Danya Barraza, [facility] [address] [place] [address] Assigned MTM Pharmacist 11/12/21 06/26/22 Jeanette French, FATOUMATA [address] [place] [address] Specialty Coding Team Lead Gastroenterology 12/30/21 Tammy Greenberg MD [address] [place] [address] [address] [place], [place] 0[address] Cardiovascular Disease 02/24/22 Genaro Palacios MD [address] [facility] [address] [place], [place] [address] Assigned Heart and Vascular Provider 03/28/22 Claude Rucker MD [address] [place] [address] 829395 Assigned Surgical Provider 04/11/22 Delroy Gore, OR MANAGER STEREO PLOTTER OPERATOR [address] [place] [address]86[address] Assigned Nephrology Provider 04/25/22 documented as of this encounter
--- OUTSIDE RECORDS SUMMARY | 2023-03-14 02:41 | XMS_ITS | Encounter Summary ---
Author Name Unknown Organization [facility] Address [address] [place] [address]. [place] [address] Care Team Providers Care Feeder Operator Name Role Phone Chapin Khan MD Unavailable + [phone] Brionna Covarrubias RN Unavailable [phone] Danya Barraza [facility] Unavailable [phone] Romi Fairbanks MD Unavailable +[phone] Maximino Arredondo MD Primary Care Provider [phone] Danya Barraza [facility] Unavailable [phone] Jeanette French RN Unavailable [phone] Tammy Greenberg MD Unavailable +[phone] Genaro Palacios MD Unavailable +[phone] Claude Rucker MD Unavailable [phone] Delroy Gore APRN DEPOSITION OPERATOR Unavailable +[phone] Chapin Ruvalcaba MD Unavailable + [phone] Romi Fairbanks MD Unavailable +[phone] Danya Barraza [facility] Unavailable [phone] Reason for Visit * Reason Onset Date Comments Appointment 04/14/2022 Change to video Encounter Details Date Type Department Care Team (Late st Contact Info) Description 04/14/2022 Telephone [facility] Nephrology Clinic [address] [phone] Delroy Gore, CIGARETTE PACKAGE EXAMINER [address] [address] Appointment (Change to video) Social History Tobacco Use Types Packs/Day Years [...] encounter Miscellaneous Notes * Telephone Encounter - Cesilia Elliott - 04/14/2022 3:58 PM CST [facility] Phone Message May a detailed message be left on voicemail: yes Reason for Call: Other: Patient called and spoke with caption writer, he would like to change his appointment 04/16 to video. Please review and call patient. Thank you Action Taken: Message routed to: [facility] Neph Travel Screening: Not Applicable BAKER documented in this encounter Plan of Treatment Upcoming Encounters Date Type Department Care Team (Late st Contact Info) Description 04/01/2023 1:15 PM HEAD BAKER Office Visit [address] [phone] Yolanda Wilkerson PA-C [address] [place] [address] 228645 07/13/2023 8:00 AM CDT Virtual Visit [facility] Gastroenterology [address] 4[address] [place] [phone] Deuce Majano PA-C [address] [place] [address] 531975 documented as of this encounter Visit Diagnoses Not on filedocumented in this encounter Care Teams Feeder Operator Relationship Specialty Start Date End Date Maximino Arredondo MD [address] [place] [phone] PCP - General Family Medicine 04/02/21 Chapin Khan MD [address] [place] [address] Urology 05/10/20 Brionna Covarrubias, RN Registered Nurse Oncology 05/10/20 09/01/22 Danya Barraza, [facility] [address] [place] [address] [phone] Pharmacist Pharmacist Tugboat Captain 12/25/20 Romi Fairbanks MD [address] [phone] Assigned Gastroenterology Provider 01/05/21 06/12/22 Danya Barraza [facility] [address] [place] [address] [facility] Pharmacist 11/12/21 06/26/22 Jeanette French, FATOUMATA [address] [place] [address] Specialty Retail Cashier Gastroenterology 12/30/21 Tammy Greenberg MD [address] [place] [address] [address] [place], [place] 508035 Cardiovascular Disease 02/24/22 Genaro Palacios MD [address] [facility] [place] [address] [phone] Assigned Heart and Vascular Provider 03/28/22 Claude Rucker MD [address] [place] [address] [phone] Assigned Surgical Provider 04/11/22 Delroy Gore, CIGARETTE PACKAGE EXAMINER DEPOSITION OPERATOR [address] [place] [address] [phone] Assigned Nephrology Provider 04/25/22 Chapin Ruvalcaba MD [address] [facility] [address] [place], [place] 694595 Assigned Gastroenterology Provider 06/13/22 06/19/22 Romi Fairbanks MD [address] [phone] Assigned Gastroenterology Provider 06/20/22 08/14/22 Danya Barraza [facility] 9 [place] [address] Assigned MTM Pharmacist 12/05/22 documented as of this encounter
--- OUTSIDE RECORDS SUMMARY | 2023-03-14 02:41 | XMS_ITS | Encounter Summary ---
Author Name Unknown Organization [facility] Address [address] [place] [address] Care Team Providers Care Range Manager Name Role Phone Chapin Khan MD Unavailable +[phone] Brionna Covarrubias RN Unavailable [phone] Driss Morales MD Unavailable +[phone] Danya Barraza [facility] Unavailable +[phone] Romi Fairbanks MD Unavailable +[phone] Maximino Arredondo MD Primary Care Provider [phone] Danya Barraza [facility] Unavailable +[phone] Jeanette French RN Unavailable [phone] Tammy Greenberg MD Unavailable [phone] Genaro Palacios MD Unavailable [phone] Claude Rucker MD Unavailable [phone] Delroy Gore APRN CORE CHECKER Unavailable +1- Chapin Ruvalcaba MD Unavailable + [phone] Romi Fairbanks MD Unavailable +[phone] Danya Barraza [facility] Unavailable +[phone] Deuce Majano PA-C Unavailable +[phone] Chapin Ruvalcaba MD Unavailable Reason for Visit * Reason Onset Date Comments Call To Schedule Appointment 04/02/2022 Encounter Details Date Type Department Care Team (Late st Contact Info) Description 04/02/2022 MyC Medical Advice [facility] [place] [address] [place] [phone] Genaro Palacios MD [address] [place] [address] Call To Schedule Appointment Social History Tobacco Use Types Packs/Day Years [...] suspected to have Coronavirus/COVID-19? No / Unsure 04/03/2022 5:48 AM CRM MARKETING ANALYST documented as of this encounter Miscellaneous Notes * Telephone Encounter - Bhavik Cerda - 09/22/2022 12:42 PM CDT Left voicemail with instructions for patient to call back to schedule their appointment(s) September 22, 2022 , 12:42 PM * Telephone Encounter - Merari Guerrero RN - 09/22/2022 8:33 AM CDT Routing to scheduling to contact patient and schedule follow up per Order. * Telephone Encounter - Brionna Nelson RN - 04/02/2022 9:51 AM CRM MARKETING ANALYST Please see MyChart encounter and advise. LISA Gates, RN-[facility] [place] MARKETING ANALYST documented in this encounter Plan of Treatment Upcoming Encounters Date Type Department Care Team (Late st Contact Info) Description 04/01/2023 1:15 PM CRM MARKETING ANALYST Office Visit [address] [phone] Yolanda Wilkerson PA-C [address] [place] [address] [phone] 07/13/2023 8:00 AM CDT Virtual Visit [facility] G[facility] [address] [phone] Deuce Majano PA-C [address] [place] [address] [phone] documented as of this encounter Visit Diagnoses Not on filedocumented in this encounter Additional Health Concerns Infection Onset Date Last Indicated Resolved Time Rule Out C-difficile 03/10/2023 03/10/2023 024 5:57 PM CRM MARKETING ANALYST documented as of this encounter Care Teams Range Manager Relationship Specialty Start Date End Date Maximino Arredondo MD [address] [place] [phone] PCP - General Family Medicine 04/02/21 Chapin Khan MD [address] [place] [address] [phone] Urology 05/10/20 Brionna Covarrubias, RN Registered Nurse Oncology 05/10/20 09/01/22 Driss Morales MD [address] [place] [address] [address] [place], [place] 575035 Assigned Surgical Provider 11/17/20 04/10/22 Danya Barraza [facility] [address] [place] [address] Pharmacist Pharmacist Steelscope Operator 12/25/20 Romi Fairbanks MD [facility] [address] [place] [address] Assigned Gastroenterology Provider 01/05/21 06/12/22 Danya Barraza [facility] [address] [place] [address] Assigned MTM Pharmacist 11/12/21 06/26/22 Jeanette French, FATOUMATA [address] [place] [address] 201525 Specialty Early Morning Babysitter Gastroenterology 12/30/21 Tammy Greenberg MD [address] [place] [address] [address] [place], [place] 8[address] Cardiovascular Disease 02/24/22 Genaro Palacios MD [address] [place] [id number] Assigned Heart and Vascular Provider 03/28/22 Claude Rucker MD [address] [place] [address] [id number] Assigned Surgical Provider 04/11/22 Delroy Gore APRN CORE CHECKER [address] [place] [address] [phone] Assigned Nephrology Provider 04/25/22 Chapin Ruvalcaba MD [address] [place] [address] [phone] Assigned Gastroenterology Provider 06/13/22 06/19/22 Romi Fairbanks MD [address] 862065 Assigned Gastroenterology Provider 06/20/22 08/14/22 Danya Barraza [facility] [address] [place] [address] [phone] Assigned MTM Pharmacist 12/05/22 Deuce Majano PA-C [address] [place] [address] 315305 Assigned Gastroenterology Provider 01/23/23 02/05/23 Chapin Ruvalcaba MD [address] [place] [address] 932335 Assigned Gastroenterology Provider 02/06/23 documented as of this encounter
--- OUTSIDE RECORDS SUMMARY | 2023-03-14 02:41 | XMS_ITS | Encounter Summary ---
Author Name Unknown Organization [facility] Address [address] [place] [address]. [place] [address] Care Team Providers Care Fireproof Door Assembler Name Role Phone Chapin Khan MD Unavailable [phone] Brionna Covarrubias RN Unavailable [phone] Driss Morales MD Unavailable [phone] Danya Barraza [facility] Unavailable Romi Fairbanks MD Unavailable [phone] Maximino Arredondo MD Primary Care Provider Danya Barraza [facility] Unavailable Jeanette French RN Unavailable [phone] Tammy Greenberg MD Unavailable [phone] Genaro Palacios MD Unavailable [phone] Encounter Details Date Type Department Care Team (Late st Contact Info) Description 04/02/2022 Orders Only [facility] [place] [address] [place] [phone] Kamala Quinonez, ROSALINE [address] [place], [place] [phone] ESRD (end stage renal disease) on dialysis (H) (Primary Dx); AVF (arteriovenous fistula) (H) Social History Tobacco Use Types Packs/Day [...] suspected to have Coronavirus/COVID-19? No / Unsure 03/31/2022 10:53 AM NUT ORCHARDIST documented as of this encounter Plan of Treatment Upcoming Encounters Date Type Department Care Team (Late st Contact Info) Description 04/01/2023 1:15 PM NUT ORCHARDIST Office Visit [address] [phone] Yolanda Wilkerson PA-C [address] [place] [address] [phone] 07/13/2023 8:00 AM CDT Virtual Visit [facility] Gastroenterology [address] [place] [phone] Deuce Majano PA-C [address] [place] [address] [phone] documented as of this encounter Visit Diagnoses Diagnosis ESRD (end stage renal disease) on dialysis (H)- Primary End stage renal disease AVF (arteriovenous fistula) (H24) Arteriovenous fistula, acquired documented in this encounter Care Teams Fireproof Door Assembler Relationship Specialty Start Date End Date Maximino Arredondo MD [address] [place] [address] PCP - General Family Medicine 04/02/21 Chapin Khan MD [address] [place] [address] 585605 Urology 05/10/20 Brionna Covarrubias, FATOUMATA Registered Nurse Oncology 05/10/20 09/01/22 Driss Morales MD [address] [place] [address] 195 [place] [address] Assigned Surgical Provider 11/17/20 04/10/22 Danya Barraza [facility] [address] [place] [address] [phone] Pharmacist Pharmacist Dry Color Mixer 12/25/20 Romi Fairbanks MD [facility] [address] [place] [address] Assigned Gastroenterology Provider 01/05/21 06/12/22 Danya Barraza [facility] [address] [place] [address] Assigned MTM Pharmacist 11/12/21 06/26/22 Jeanette French, FATOUMATA [address] [place] [address] Specialty Auditing Specialist Gastroenterology 12/30/21 Tammy Greenberg MD [address] [place] [address] [address] [place] [address] Cardiovascular Disease 02/24/22 Genaro Palacios MD [address] [place] [address] Assigned Heart and Vascular Provider 03/28/22 documented as of this encounter
--- OUTSIDE RECORDS SUMMARY | 2023-03-14 02:41 | XMS_ITS | Encounter Summary ---
Author Name Unknown Organization [facility] Address [address] [place] [address]. [place] [address] Care Team Providers Care Psychology Intern Name Role Phone Chapin Khan MD Unavailable [phone] Brionna Covarrubias RN Unavailable [phone] Driss Morales MD Unavailable [phone] Danya Barraza [facility] Unavailable Romi Fairbanks MD Unavailable [phone] Maximino Arredondo MD Primary Care Provider Danya Barraza [facility] Unavailable Jeanette French RN Unavailable [phone] Tammy Greenberg MD Unavailable [phone] Genaro Palacios MD Unavailable [phone] Reason for Visit * Auth/Cert (Routine) Specialty Diagnoses / Procedures Referred By Contac t Referred To Contact Surgery Diagnoses AVF (arteriovenous fistula) (H24) Occlusion of left subclavian vein (H) AVF (arteriovenous fistula) (H) [I77.0] 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] Procedures OR REVISE AV FISTULA,W/O THROMBECTOMY OR AV FIST REVISE GRFT,W THROMBECTOMY LEFT UPPER ARM FISTULA OUTFLOW REVISION FROM CEPHALIC VEIN TO JUGULAR VEIN WITH 10mm THIN-WALLED RINGED POLYTETRAFLUEROETHYLINE [address] [place] [address] Referral ID Status Reason Start Date Expiration Date Visits Re quested Visits Authorized [id number] 1 1 Encounter Details Date Type Department Care Team (Late st Contact Info) Description 03/31/2022 1:54 PM [facility] Anesthesia Event [facility] [address] [place] [address] Brett Kendall MD [facility] [address] [place] [address] Dave Dubois MD [facility] [address] [place] [address] Anesthesia Record Procedure Summary Procedure Name Responsible Anesthesiologist Anesthesia Start Time Anesthesia Stop Time LEFT UPPER ARM FISTULA OUTFL OW REVISION FROM CEPHALIC VEIN TO JUGULAR VEIN WITH 10mm THIN-WALLED RINGED POLYTETRAFLUEROETHYLINE (Left: Arm) Brett Kendall MD 03/31/22 1354 03/31/22 1628 Events Date Time Event Comment 03/31/2022 1317 1354 An Start 1354 An Start Data 1354 AN REASSESS I attest that I have identified and re-evaluated the patient immediately before the induction of anesthesia and I am satisfied that the anesthetic plan is suitable for the patient's condition and procedure. The first vital signs recorded are pre- induction. Edgardo De La Paz APRN CRNA 1357 MD Present 1400 An Induction 1402 An LMA 1426 AN INCISION 1458 Quick Note Controlled Subs tance Handoff Documentation I am handing off the following Controlled Substances to the oncoming Anesthesia Care Provider: Fentanyl 50 mcg/mL 1 mL Edgardo De La Paz APRN CRNA I am taking control over the above listed controlled substances: Janessa Stephen APRN CRNA 1611 LMA Removed 1612 Quick Note On hold to pacu 1624 an stop data 1628 An Stop Electronically signed by Janessa Stephen APRN CRNA on March 31, 2022 5:33 PM Meds Name Total fentaNYL (SUBLIMAZE) injection 200 mcg lidocaine 2% 80 mg midazolam 1mg/mL 2 mg ondansetron 2mg/mL 4 mg propofol (DIPRIVAN) injection 10 mg/mL v ial 160 mg phenylephrine 0.2 mg/mL (mcg/kg/min) dri p 2.96 mg ceFAZolin Sodium (ANCEF) injection 2 g 2 g heparin 1,000 units/mL 3,000 Units HYDROmorphone 1 mg/ml 0.5 mg sodium chloride 0.9% infusion 600 mL * Agents Name NO HELIOX [...] 1559; L eft; Shoulder 03/31/22 1559 by Tiarra Miller RN RETIRE: Peripheral IV 03/31/22; 1252; 20 G; BD; Right; Hand; Chlorhexidine; Tolerated well 03/31/22 1252 by Chantelle Garner RN 04/01/22 0750 by Matilda Joya RN Supraglottic Airway Placement Date: 03/31/22; Placement Time: 1402 (created via procedure documentation); Airway Type: Standard LMA; Mask Ventilation: 0; LMA Size: 5; Airway Brand: Ambu AuraGain; Attempts: 1 03/31/22 1402 by Edgardo De La Paz APRN CRNA 03/31/22 1611 by Janessa Stephen APRN CRNA documented in this encounter Social History Tobacco [...] Coronavirus/COVID-19? No / Unsure 03/31/2022 10:53 AM [facility] documented as of this encounter OR Notes * Anesthesia Postprocedure Evaluation - Samuel Levin MD - 03/31/2022 7:35 PM CST Patient: Moisés Whelan Procedure: Procedure(s): LEFT UPPER ARM FISTULA OUTFLOW REVISION FROM CEPHALIC VEIN TO JUGULAR VEIN WITH 10mm THIN-WALLED RINGED POLYTETRAFLUEROETHYLINE Anesthesia Type: General Note: Disposition: Inpatient Postop Pain Control: Uneventful Sign Out: Well controlled pain PONV: No Neuro/Psych: Uneventful Sign Out: Acceptable/Baseline neuro status Airway/Respiratory: Uneventful Sign Out: Acceptable/Baseline resp. status CV/Hemodynamics: Uneventful Sign Out: Acceptable CV status Other NRE: NONE DID A NON-ROUTINE EVENT OCCUR? No Last vitals: Vitals Value Taken Time BP 146/69 03/31/22 1730 Temp 36.5 ??C (97.7 ??F) 03/31/22 1740 Pulse 82 03/31/22 1740 Resp 11 03/31/22 1740 SpO2 97 % 03/31/22 1739 Vitals shown include unvalidated device data. Electronically Signed By: Samuel Levin MD March 31, 2022 7:35 PM [facility] * Anesthesia Procedure Notes - Edgardo De La Paz APRN CRNA - 03/31/2022 2:13 PM CSTAssociated Order(s): Airway Airway Procedure Start/Stop Times: 03/31/2022 2:02 PM Staff - Anesthesiologist: Jad Pizano MD CREDIT REPRESENTATIVE: Edgardo De La Paz APRN CRNA Performed By: CRNAIndications and Patient Condition Indications for airway management: airway protection Induction type:intravenous Mask difficulty assessment: 0 - not attempted Final Airway Details Final airway type: supraglottic airway Supraglottic Airway Details Type: LMA Brand: Ambu AuraGain LMA size: 5 Cuff Pressure (cm H2O): 25 Post intubation assessment Placement verified by: capnometry, equal breath sounds and chest rise Number of attempts at approach: 1 Number of other approaches attempted: 0 Secured with: pink tape Ease of procedure: easy Dentition: Unchanged and Intact Medication(s) Administered Medication Administration Time: 03/31/2022 2:02 PM [facility] * Anesthesia Preprocedure Evaluation - Jad Pizano MD - 03/31/2022 12:19 PM CST Anesthesia Pre-Procedure Evaluation Patient: Moisés Whelan : 1960 Procedure : Procedure(s): LEFT UPPER ARM FISTULA OUTFLOW REVISION FROM CEPHALIC VEIN TO JUGULAR VEIN WITH 10mm THIN-WALLED RINGED POLYTETRAFLUEROETHYLINE Past Medical History: Diagnosis Date ??? Aortic dissection (H) distal, thin. stable/chronic on MRCP 04/2021 ??? Benign essential hypertension ??? Cerebral infarction (H) ??? Chronic atrial fibrillation (H) ??? Crohn's colitis (H) ??? Crohn's disease of large intestine (H) 01/06/2021 ??? Esophageal reflux ??? ESRD (end stage renal disease) on dialysis (H) ??? History of basal cell carcinoma ??? Hypertension ??? Mixed hyperlipidemia ??? NSTEMI (non-ST elevated myocardial infarction) (H) Past Surgical History: Procedure Laterality Date [...] Luke Carvalho MD; Location: [facility] ??? ESOPHAGOSCOPY, GASTROSCOPY, DUODENOSCOPY (EGD), COMBINED N/A [...] Driss Morales MD; Location: [facility] OR ??? VASCULAR SURGERY dialysis access- left upper Allergies Allergen Reactions ??? Lisinopril Anaphylaxis and Other (See Comments) Shortness of breath Social History Tobacco Use ??? Smoking status: Every Day Packs/day: 0.25 Years: 50.00 Pack years: 12.50 Types: Cigarettes Last attempt to quit: 12/04/2019 Years since quittin.3 ??? Smokeless tobacco: Never Substance Use Topics ??? Alcohol use: Yes Comment: rare Wt Readings from Last 1 Encounters: 03/17/22 82.1 kg (181 lb 1.6 oz) Anesthesia Evaluation ROS/MED HX ENT/Pulmonary: (-) tobacco use, asthma, COPD and sleep apnea Neurologic: (+) CVA, (-) no seizures Cardiovascular: (+) Dyslipidemia hypertension--CAD (Minimal, nonobstructive) -past HI --dysrhythmias, a-fib, Previous cardiac testing Echo: Date: 2020 Results: Global and regional left ventricular function is normal with an EF of 60-65%. Right ventricular function, chamber size, wall motion, and thickness are normal. Mild to moderate mitral insufficiency is present. The inferior vena cava was normal in size with preserved respiratory variability. Stress Test: Date: Results: ECG Reviewed: Date: 02/05 Results: NSR, LVH criteria, bifascicular block Cath: Date: Results: (-) CHF METS/Exercise Tolerance: Hematologic: Musculoskeletal: GI/Hepatic: (+) GERD, Inflammatory bowel disease (Crohn's, short gut syndrome), (-) liver disease Renal/Genitourinary: (+) renal disease, type: ESRD, Endo: (-) Type I DM and Type II DM Psychiatric/Substance Use: Infectious Disease: Malignancy: (+) Malignancy, History of GI. Other: Physical Exam Airway Mallampati: II TM distance: > 3 FB Neck ROM: full Mouth opening: > 3 cm Respiratory Devices and Support Dental (+) Minor Abnormalities - some fillings, tiny chips Cardiovascular Rhythm and rate: regular Pulmonary breath sounds clear to auscultation OUTSIDE LABS: CBC: Lab Results Component Value Date WBC 4.3 01/02/2022 WBC 8.2 09/13/2021 HGB 11.1 (L) 01/02/2022 HGB 11.0 (L) 09/13/2021 HCT 32.8 (L) 01/02/2022 HCT 33.2 (L) 09/13/2021 PLT 88 (L) 01/02/2022 PLT 120 (L) 09/13/2021 BMP: Lab Results Component Value Date NA 140 02/27/2022 NA 142 01/02/2022 POTASSIUM 4.0 02/27/2022 POTASSIUM 4.1 01/02/2022 CHLORIDE 98 02/27/2022 CHLORIDE 97 (L) 01/02/2022 CO2 28 02/27/2022 CO2 29 01/02/2022 BUN 36 (H) 02/27/2022 BUN 12.0 01/02/2022 CR 9.99 (H) 02/27/2022 CR 5.34 (H) 01/02/2022 GLC 76 02/27/2022 GLC 129 (H) 01/02/2022 COAGS: Lab Results Component Value Date PTT 32 05/01/2021 INR 1.30 (H) 05/01/2021 POC: No results found for: BGM, HCG, HCGS HEPATIC: Lab Results Component Value Date ALBUMIN 4.6 01/02/2022 PROTTOTAL 7.5 01/02/2022 ALT 23 01/02/2022 AST 33 01/02/2022 ALKPHOS 65 01/02/2022 BILITOTAL 0.8 01/02/2022 OTHER: Lab Results Component Value Date PH 7.36 05/01/2021 LACT 0.6 (L) 05/03/2021 ELIER 10.0 02/27/2022 PHOS 4.7 (H) 05/05/2021 MAG 1.2 (L) 05/05/2021 LIPASE 115 (H) 11/12/2019 AMYLASE 34 05/02/2021 CRP 5.6 06/22/2007 SED 44 (H) 01/02/2022 Anesthesia Plan ASA Status: 3 Anesthesia Type: General. - Airway: LMA Induction: Intravenous, Propofol. Maintenance: Balanced. Consents Anesthesia Plan(s) and associated risks, benefits, and realistic alternatives discussed. Questions answered and patient/sales representative(s) expressed understanding. - Discussed: - Discussed with: Patient Postoperative Care Pain management: Multi-modal analgesia. 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 Anesthesia Type: General Note: Oropharynx: oropharynx clear of all foreign objects Level of Consciousness: awake Oxygen Supplementation: face mask Independent Airway: airway patency satisfactory and stable Dentition: dentition unchanged Vital Signs Stable: post-procedure vital signs reviewed and stable Report to RN Given: handoff report given Patient transferred to: PACU Handoff Report: Identifed the Patient, Identified the Reponsible Provider, Reviewed the pertinent medical history, Discussed the surgical course, Reviewed Intra-OP anesthesia mangement and issues during anesthesia, Set expectations for post-procedure period and Allowed opportunity for questions andacknowledgement of understanding Vitals: Vitals Value Taken Time BP Temp Pulse Resp SpO2 Electronically Signed By: Janessa Stephen APRN CRNA March 31, 2022 4:21 PM [facility] documented in this encounter Plan of Treatment Upcoming Encounters Date Type Department Care Team (Late st Contact Info) Description 04/01/2023 1:15 PM [facility] Office Visit [address] [phone] Yolanda Wilkerson PA-C [address] [place] [address] [phone] 07/13/2023 8:00 AM CDT Virtual Visit [facility] [address] [place] [phone] Deuce Majano PA-C [address] [place] [address] [phone] documented as of this encounter Procedures Procedure Name Priority Date/Time Associated Diagnosis Comments ANE AIRWAY SUPRAGLOTTIC PERFORMABLE Routine 03/31/2022 2:02 PM [facility] documented in this encounter Results * ANE AIRWAY SUPRAGLOTTIC PERFORMABLE (03/31/2022 2:02 PM [facility]) Narrative Edgardo De La Paz APRN CRNA - 03/31/2022 2:02 PM [facility] Edgardo De La Paz APRN CRNA ? 03/31/2022 ??2:13 PM Airway ? Procedure Start/Stop Times: 03/31/2022 2:02 PM Staff - ? Anesthesiologist: ??Jad Pizano MD ? CREDIT REPRESENTATIVE: Edgardo De La Paz APRN CRNA ? Performed By: CRNAIndications and Patient Condition ? Indications for airway management: airway protection ? Induction type:intravenous ? Mask difficulty assessment: 0 - not attempted Final Airway Details ? Final airway type: supraglottic airway Supraglottic Airway Details ? Type: LMA ? Brand: Ambu AuraGain ? LMA size: 5 ? Cuff Pressure (cm H2O): 25 Post intubation assessment ? Placement verified by: capnometry, equal breath sounds and chest rise ? Number of attempts at approach: 1 ? Number of other approaches attempted: 0 ? Secured with: pink tape ? Ease of procedure: easy ? Dentition: Unchanged and Intact Medication(s) Administered Medication Administration Time: 03/31/2022 2:02 PM Jad Pizano MD OR ANESTHESIA documented in this encounter Visit Diagnoses Not on filedocumented in this encounter Administered Medications Inactive Administered Medications - up to 3 most recent administrations Medication Order MAR Action Action Date Dose Rate Site ceFAZolin Sodium (ANCEF) injection 2 g Routine, 2 g, Intravenous, PRE-OP/PRE-PROCEDURE, Starting on Wed03/31/22 at 1230, For 1 dose, Give first dose within 1 hour PRIOR to incision. If patient weight is greater than or equal to 120 kg increase dose to 3 g., Indications: Perioperative Pharmacoprophylaxis, Pre-procedure $Given 03/31/2022 2:01 PM [facility] 2 g fentaNYL (PF) (SUBLIMAZE) injection Intravenous, PRN, Administer over 3-5 Minutes, Starting on Wed03/31/22 at 1400, Anesthesia Intra-op $Given 03/31/2022 4:47 PM [facility] 50 mcg $Given 03/31/2022 4:37 PM [facility] 50 mcg $Given 03/31/2022 3:36 PM [facility] 50 mcg heparin (porcine) injection Intravenous, PRN, Starting on Wed03/31/22 at 1447, Anesthesia Intra-op $Given 03/31/2022 2:47 PM [facility] 3,000 Units HYDROmorphone (DILAUDID) injection Intravenous, PRN, Starting on Wed03/31/22 at 1617, Anesthesia Intra-op $Given 03/31/2022 4:17 PM [facility] 0.5 mg lidocaine 2% injection (MDV) Other, PRN, Starting on Wed03/31/22 at 1400, Anesthesia Intra-op $Given 03/31/2022 2:00 PM [facility] 80 mg midazolam (VERSED) injection Intravenous, Administer over 2 Minutes, PRN, Starting on Wed03/31/22 at 1354, Anesthesia Intra-op $Given 03/31/2022 1:54 PM [facility] 2 mg ondansetron (ZOFRAN) injection Intravenous, PRN, Administer over 2-5 Minutes, Starting on Wed03/31/22 at 1410, Anesthesia Intra-op $Given 03/31/2022 2:10 PM [facility] 4 mg phenylephrine 0.2 mg/mL (mcg/kg/min) drip Intravenous, CONTINUOUS PRN, Starting on Wed03/31/22 at 1413, Anesthesia Intra-op Rate/Dose Change 03/31/2022 2:39 PM [facility] 0.3 mcg/kg/min 7.389 mL/hr $New Bag 03/31/2022 2:13 PM [facility] 0.5 mcg/kg/min 12.315 mL /hr propofol (DIPRIVAN) injection 10 mg/mL vial Intravenous, PRN, Starting on Wed03/31/22 at 1400, Anesthesia Intra-op $Given 03/31/2022 2:00 PM [facility] 160 mg sodium chloride 0.9% infusion at 10 mL/hr, Intravenous, CONTINUOUS, IF patient on dialysis., Pre-procedure, Starting on Wed03/31/22 at 1230, Until Wed03/31/22 at 1626 $New Bag 03/31/2022 1:54 PM [facility] $New Bag 03/31/2022 12:55 PM [facility] 10 mL/hr documented in this encounter Additional Health Concerns Infection Onset Date Last Indicated Resolved Time Recovered COVID 01/16/2022 01/16/2022 04/01/2022 1 1:39 PM [facility] documented as of this encounter Care Teams Psychology Intern Relationship Specialty Start Date End Date Maximino Arredondo MD [address] [place] [phone] PCP - General Family Medicine 04/02/21 Chapin Khan MD [address] [place] [address] [id number] Urology 05/10/20 Brionna Covarrubias, FATOUMATA Registered Nurse Oncology 05/10/20 09/01/22 Driss Morales MD [address] [place], [place] [phone] Assigned Surgical Provider 11/17/20 04/10/22 Danya Barraza [facility] [address] [place] [address] [phone] Pharmacist Pharmacist Factory Clerk 12/25/20 Romi Fairbanks MD [facility] [address] [place], [place] [address] Assigned Gastroenterology Provider 01/05/21 06/12/22 Danya Barraza [facility] [address] [place] [address] [phone] Assigned MTM Pharmacist 11/12/21 06/26/22 Jeanette French, FATOUMATA [address] [place] [address] Specialty Office Messenger Helper Gastroenterology 12/30/21 Tammy Greenberg MD [address] [place] [address] Cardiovascular Disease 02/24/22 Genaro Palacios MD [address] [place] [address] Assigned Heart and Vascular Provider 03/28/22 documented as of this encounter
--- OUTSIDE RECORDS SUMMARY | 2023-03-14 02:41 | XMS_ITS | Encounter Summary ---
Author Name Unknown Organization [facility] Address [address] [place] [address]. [place] [address] Care Team Providers Care Museum Registrar Name Role Phone Chapin Khan MD Unavailable [phone] Brionna Covarrubias RN Unavailable [phone] Driss Morales MD Unavailable [phone] [facility] Unavailable [phone] Romi Fairbanks MD Unavailable [phone] Maximino Arredondo MD Primary Care Provider [phone] [facility] Unavailable [phone] Jeanette French RN Unavailable [phone] Tammy Greenberg MD Unavailable [phone] Genaro Palacios MD Unavailable [phone] Claude Rucker MD Unavailable [phone] Delroy Gore APRN [facility] Unavailable [phone] Chapin Ruvalcaba MD Unavailable [phone] Romi Fairbanks MD Unavailable [phone] Encounter Details Date Type Department Care Team (Late st Contact Info) Description 03/30/2022 [facility] [place] [address] [place] [phone] Genaro Palacios MD [address] [place] [address] Social History Tobacco Use Types Packs/Day Years [...] encounter Miscellaneous Notes * Telephone Encounter - Genaro Palacios MD - 03/30/2022 12:17 PM [facility] [place] [facility] I spoke with Moisés Whelan this afternoon. 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 This was performed under general anesthetic. He will be admitted overnight. He just finished his dialysis today. Very likely he may actually skip his dialysis on Wednesday which she is done in the past with no issues. He had no questions about the procedure. N.p.o. after midnight. Genrao Palacios MD R PAINT documented in this encounter Plan of Treatment Upcoming Encounters Date Type Department Care Team (Late st Contact Info) Description 04/01/2023 1:15 PM [facility] Office Visit [address] [phone] Yolanda Wilkerson PA-C [address] [place] [address] [phone] 07/13/2023 8:00 AM CDT Virtual Visit [facility] [address] [place] [phone] Deuce Majano PA-C [address] [place] [address] [phone] documented as of this encounter Visit Diagnoses Not on filedocumented in this encounter Additional Health Concerns Infection Onset Date Last Indicated Resolved Time Recovered COVID 01/16/2022 01/16/2022 04/01/2022 1 1:39 PM [facility] documented as of this encounter Care Teams Museum Registrar Relationship Specialty Start Date End Date Maximino Arredondo MD [address] [place] [phone] PCP - General Family Medicine 04/02/21 Chapin Khan MD [address] [place] [phone] Urology 05/10/20 Brionna Covarrubias, RN Registered Nurse Oncology 05/10/20 09/01/22 Driss Morales MD [address] [place] [address] Assigned Surgical Provider 11/17/20 04/10/22 D[facility] [address] [place] [phone] Pharmacist Pharmacist Theater Company Producer 12/25/20 Romi Fairbanks MD [facility] [address] [place] [address] [phone] Assigned Gastroenterology Provider 01/05/21 06/12/22 [facility] [address] [place] [address] [phone] Assigned MTM Pharmacist 11/12/21 06/26/22 Jeanette French, FATOUMATA [address] [place] [address] [phone] Specialty Slasher Runner Gastroenterology 12/30/21 Tammy Greenberg MD [address] [place], [place] [address] [place], [place] [address] Cardiovascular Disease 02/24/22 Genaro Palacios MD [address] [place] [address] [phone] Assigned Heart and Vascular Provider 03/28/22 Claude Rucker MD [address] [place] [address] [phone] Assigned Surgical Provider 04/11/22 Delroy Gore APRN [facility] [address] [place] [address] [phone] Assigned Nephrology Provider 04/25/22 Chapin Ruvalcaba MD [address] [place], [place] [address] [address] [place] [phone] Assigned Gastroenterology Provider 06/13/22 06/19/22 Romi Fairbanks MD [address] [address] Assigned Gastroenterology Provider 06/20/22 08/14/22 documented as of this encounter
--- OUTSIDE RECORDS SUMMARY | 2023-03-14 02:41 | XMS_ITS | Encounter Summary ---
Author Name Unknown Organization [facility] Address [address] [place] [address]. [place] [address] Care Team Providers Care Content Management Specialist Name Role Phone Chapin Khan MD Unavailable [phone] Brionna Covarrubias RN Unavailable [phone] Driss Morales MD Unavailable [phone] Danya Barraza [facility] Unavailable Romi Fairbanks MD Unavailable [phone] Maximino Arredondo MD Primary Care Provider Danya Barraza [facility] Unavailable [phone] Jeanette French RN Unavailable [phone] Tammy Greenberg MD Unavailable [phone] Genaro Palacios MD Unavailable [phone] Encounter Details Date Type Department Care Team (Latest Contact Info) Description 04/09/2022 Travel Social History Tobacco Use Types Packs/Day [...] suspected to have Coronavirus/COVID-19? No / Unsure 04/09/2022 3:29 AM PLATFORM OPERATIONS DIRECTOR documented as of this encounter Plan of Treatment Upcoming Encounters Date Type Department Care Team (Late st Contact Info) Description 04/01/2023 1:15 PM PLATFORM OPERATIONS DIRECTOR Office Visit [address] [phone] Yolanda Wilkerson, PAAnhC [address] [place] [id number] 07/13/2023 8:00 AM CDT Virtual Visit [facility] [address] [phone] Deuce Majano PA-C [address] [place] [id number] documented as of this encounter Visit Diagnoses Not on filedocumented in this encounter Care Teams Content Management Specialist Relationship Specialty Start Date End Date Maximino Arredondo MD [address] [place] [phone] PCP - General Family Medicine 04/02/21 Chapin Khan MD [address] [place] [id number] Urology 05/10/20 Brionna Covarrubias, RN Registered Nurse Oncology 05/10/20 09/01/22 Driss Morales MD [address] [facility] [address] [place] [address] Assigned Surgical Provider 11/17/20 04/10/22 Danya Barraza [facility] [address] [place] [id number] Pharmacist Pharmacist Advertising Sales Executive 12/25/20 Romi Fairbanks MD [facility] [address] [place] [address] Assigned Gastroenterology Provider 01/05/21 06/12/22 [facility] [address] [place] [address] Assigned MTM Pharmacist 11/12/21 06/26/22 Jeanette French, [facility] [address] [place], [place] [phone] Specialty Medical Insurance Clerk Gastroenterology 12/30/21 Tammy Greenberg MD [address] [facility] [address] [place] [address] Cardiovascular Disease 02/24/22 Genaro Palacios MD [address] [address] Assigned Heart and Vascular Provider 03/28/22 documented as of this encounter
--- OUTSIDE RECORDS SUMMARY | 2023-03-14 02:41 | XMS_ITS | Encounter Summary ---
Author Name Unknown Organization [facility] Address [address] [place] [address]. [place] [address] Care Team Providers Care Fish And Wildlife Warden Name Role Phone Chapin Khan MD Unavailable [phone] Brionna Covarrubias RN Unavailable [phone] Driss Morales MD Unavailable [phone] Danya Barraza [facility] Unavailable Romi Fairbanks MD Unavailable [phone] Maximino Arredondo MD Primary Care Provider Danya Barraza [facility] Unavailable Jeanette French RN Unavailable [phone] Tammy Greenberg MD Unavailable [phone] Genaro Palacios MD Unavailable [phone] Reason for Visit * Auth/Cert (Routine) Specialty Diagnoses / Procedures Referred By Contac t Referred To Contact Surgery Diagnoses AVF (arteriovenous fistula) (H24) Occlusion of left subclavian vein (H) AVF (arteriovenous fistula) (H) [I77.0] 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] Procedures TN REVISE AV FISTULA,W/O THROMBECTOMY TN AV FIST REVISE GRFT,W THROMBECTOMY LEFT UPPER ARM FISTULA OUTFLOW REVISION FROM CEPHALIC VEIN TO JUGULAR VEIN WITH 10mm THIN-WALLED RINGED POLYTETRAFLUEROETHYLINE [address] [place] [place] [address] Referral ID Status Reason Start Date Expiration Date Visits Re quested Visits Authorized [id number] 1 1 Encounter Details Date Type Department Care Team (Latest Contact Info) Description 03/31/2022 2:00 PM RECRUITMENT ADVERTISING MANAGER - 03/31/2022 4:00 PM [facility] Surgery [facility] [address] [place] [phone] Genaro Palacios MD [address] [place] [id number] LEFT UPPER ARM FISTULA OUTFLOW REVISION FROM CEPHALIC VEIN TO JUGULAR VEIN WITH 10mm THIN-WALLED RINGED POLYTETRAFLUEROETHYLINE Surgery Details Date/Time Status Location OR Service Patient Class Case Class Case Type Trauma Case? 03/31/22 2:00 PM Posted OR OR [facility] General Surgery Admit Panel 1 Procedure LRB Anes Op Region Wound Class Comments LEFT UPPER ARM FISTULA OUTFL OW REVISION FROM CEPHALIC VEIN TO JUGULAR VEIN WITH 10mm THIN-WALLED RINGED POLYTETRAFLUEROETHYLINE Left General Arm I-Clean Surgeon Surgeon Role Service Panel Genaro Palacios MD [facility] Assisting Cardiovascular 1 Special Needs Pt is driving himself here, staying overnight, and expecting to drive self home the day after.He was told this would be okay. documented in this encounter Social History Tobacco Use Types Packs/Day Years Used Date Smoking Tobacco: Every Day Cigarettes 0.3 50 Last attempted to quit: 12/04/2019 Smokeless Tobacco: Never Tobacco Cessation:Ready to Q uit: Yes; Counseling Given: Not Answered Alcohol Use Standard [...] Coronavirus/COVID-19? No / Unsure 03/31/2022 10:53 AM RECRUITMENT ADVERTISING MANAGER documented as of this encounter Last Filed Vital Signs Vital Sign Reading Time Taken Comments Blood Pressure 156/75 03/31/2022 1:02 PM RECRUITMENT ADVERTISING MANAGER Pulse 86 03/31/2022 1:02 PM RECRUITMENT ADVERTISING MANAGER Temperature 36.6 ??C (97.8 ??F) 03/31/2022 1:02 PM CS T Respiratory Rate 16 03/31/2022 1:02 PM RECRUITMENT ADVERTISING MANAGER Oxygen Saturation 100% 03/31/2022 1:02 PM RECRUITMENT ADVERTISING MANAGER Inhaled Oxygen Concentration - - Weight 82.1 kg (181 lb) 03/31/2022 1:02 PM RECRUITMENT ADVERTISING MANAGER Height 180.3 cm (5' 11) 03/31/2022 1:02 PM RECRUITMENT ADVERTISING MANAGER Body Mass Index 25.24 03/31/2022 1:02 PM RECRUITMENT ADVERTISING MANAGER documented in this encounter Discharge Summaries * Genaro Palacios MD - 04/01/2022 8:19 AM CST Vascular Surgery Discharge Summary NAME: Becky Galloway : 1960 DATE OF ADMISSION: 03/31/2022 PRE/POSTOPERATIVE DIAGNOSES: Occlusion of left subclavian vein PROCEDURES PERFORMED, 03/31/2022: LEFT UPPER ARM FISTULA OUTFLOW REVISION FROM CEPHALIC VEIN TO JUGULAR VEIN WITH 10mm THIN-WALLED RINGED POLYTETRAFLUEROETHYLINE INTRAOPERATIVE FINDINGS: None POSTOPERATIVE COMPLICATIONS: None DATE OF DISCHARGE: 04/01/2022 HOSPITAL COURSE: Becky Galloway is a 62 year old male who on 03/31/2022 underwent the above-named procedures. He tolerated the procedure well and postoperatively was transferred to the general post-surgical unit. The remainder of his course was essentiallly uncomplicated. Prior to discharge, his pain was controlled well with acetaminophen. He was able to perform ADLs and ambulate independently without difficulty, and had full return of bowel and bladder function. On 04/01/2022, he was discharged to home in stable condition. DISCHARGE INSTRUCTIONS: Copy from AVS FOLLOW UP APPOINTMENTS: Copy from AVS DISCHARGE MEDICATIONS: Review of your medicines CONTINUE these medicines which have NOT CHANGED Dose / Directions amLODIPine 10 MG tablet Commonly known as: NORVASC Dose: 10 mg Take 10 mg by mouth daily Refills: 0 calcitRIOL 0.5 MCG capsule Commonly known as: ROCALTROL Dose: 1.5 mcg Take 1.5 mcg by mouth daily Refills: 0 calcium acetate 667 MG Tabs tablet Commonly known as: CALPHRON Dose: 2,668 mg Take 2,668 mg by mouth 3 times daily Refills: 0 carvedilol 12.5 MG tablet Commonly known as: COREG Dose: 12.5 mg Take 12.5 mg by mouth 2 times daily Refills: 0 folic acid 1 MG tablet Commonly known as: FOLVITE Dose: 1 mg Take 1 mg by mouth every morning Refills: 0 lidocaine-prilocaine 2.5-2.5 % external cream Commonly known as: EMLA three times a week Prior to dialysis site access on Wednesday, Wednesday, Wednesday Refills: 0 multivitamin RENAL 1 MG capsule Generic drug: multivitamin RENAL Dose: 1 capsule Take 1 capsule by mouth every morning Refills: [address] capsule Commonly known as: priLOSEC Dose: 20 mg Take 20 mg by mouth every morning Refills: 0 simvastatin 20 MG tablet Commonly known as: ZOCOR Dose: 20 mg Take 20 mg by mouth every morning Refills: 0 Stelara 90 MG/ML Used for: Crohn's disease of large intestine with complication (H) Generic drug: ustekinumab Inject 1 ml ( 90 mg) subcutaneous every 4 weeks. Quantity: 1 mL Refills: 3 STAFF: Agree with above. Video follow-up in 2 weeks. Graft duplex in 3 months. His nephrology team is following his chronic anemia (less than 5 mL blood loss during surgery). Genaro Palacios MD UITMENT ADVERTISING MANAGER documented in this encounter Medications at Time [...] 02/16/2022 07/10/2022 documented as of this encounter Progress Notes * Matilda Joya RN - 04/01/2022 8:06 AM CST Patient discharged at 8:06 AM to Discharged to home IV was discontinued. Pain at time of discharge was 2/10. Belongings returned to patient. Discharge instructions and medications reviewed with patient. Patient verbalized understanding and all questions were answered. Prescriptions given to patient. At time of discharge, patient condition was stable and left the unit gen surg escorted by transport NA. Pt will be driving himself home. RN requested someone pick pt up since he is less than 24 hours post op, pt declined, MD aware. UITMENT ADVERTISING MANAGER * Genaro Palacios MD - 04/01/2022 7:42 AM CST VASCULAR SURGERY PROGRESS NOTE Subjective: Patient sitting up resting comfortably, eating breakfast. Objective: Intake/Output Summary (Last 24 hours) at 04/01/2022 0742 Last data filed at 04/01/2022 0326 Gross per 24 hour Intake 1992 ml Output 10 ml Net 1983 ml PHYSICAL EXAM: BP (!) 156/76 (BP Location: Right arm) Pulse 86 Temp 97.8 ??F (36.6 ??C) (Oral) Resp 18 Ht 1.803 m (5' 11) Wt 82.1 kg (181 lb) SpO2 95% BMI 25.24 kg/m?? Alert and oriented x4 VSS-on RA Incisions clean/dry/intact Edema noted in left arm, however patient reports improved Palpable thrill noted CMS intact ASSESSMENT: Mr. Ziggy Galloway is a 62 year old male POD 1 fistula revision cephalic to jugular vein PLAN: -discharge home today, patient states he wants to dialysis either tomorrow or for sure Wednesday, follow-up arranged -current pain regimen Kamala Quinonez NP VASCULAR SURGERY STAFF: Looks great this morning. Dressed and ready to go home. Will miss his dialysis run today butreinitiate this on Wednesday. Left arm swelling already better with outflow revision. Chronic anemia likely related to his renal failure. Is on supplements with his dialysis and nephrology is aware of this. We will take baby aspirin. Video follow-up with me in approximately 2 weeks. Graft duplex looking at outflow revision in 3 months. Genaro Palacios MD UITMENT ADVERTISING MANAGER * Shaggy Humphrey - 03/30/2022 10:55 AM CST [facility] medications updated by Medication Scribe prior to surgery via phone call with patient??(last doses completed by Nurse) Medication history sources: Patient, Surescripts, H&P and Patient's home med list In the past week, patient estimated taking medication this percent of the time: Greater than 90% Adherence assessment: N/A Not Observed Significant changes made to the medication list: None Additional medication history information: None Medication reconciliation completed by provider prior to medication history? No Time spent in this activity: 30 minutes The information provided in this note is only as accurate as the sources available at the time of update(s) Prior to Admission medications Medication Sig Last Dose Taking? Auth Provider Snf End Date amLODIPine (NORVASC) 10 MG tablet Take 10 mg by mouth daily at am Yes Reported, Patient No calcitRIOL (ROCALTROL) 0.5 MCG capsule Take 1.5 mcg by mouth daily at am Yes Reported, Patient Yes calcium acetate (CALPHRON) 667 MG TABS tablet Take 2,668 mg by mouth 3 times daily 03/30/2022 at am Yes Reported, Patient carvedilol (COREG) 12.5 MG tablet Take 12.5 mg by mouth 2 times daily at am Yes Reported, Patient Yes 03/16/23 folic acid (FOLVITE) 1 MG tablet Take 1 mg by mouth every morning at am Yes Reported, Patient lidocaine-prilocaine (EMLA) 2.5-2.5 % external cream three times a week Wednesday, Wednesday, Wednesday03/30/2022 at am Yes Reported, Patient Yes multivitamin RENAL (MULTIVITAMIN RENAL) 1 MG capsule Take 1 capsule by mouth every morning at am Yes Reported, Patient omeprazole (PRILOSEC) [address] capsule Take 20 mg by mouth every morning at am Yes Reported, Patient simvastatin (ZOCOR) 20 MG tablet Take 20 mg by mouth every morning at am Yes Reported, Patient Yes ustekinumab (STELARA) 90 MG/ML Inject 1 ml ( 90 mg) subcutaneous every 4 weeks. February 2022 at Unknown Yes Romi Fairbanks MD Medication history completed by: Dat Humphrey [facility] Medication [facility] UITMENT ADVERTISING MANAGER documented in this encounter H&P Notes * Jad Pizano MD - 03/31/2022 12:29 PM CST I have reviewed the surgical (or preoperative) H&P that is linked to this encounter, and examined the patient. There are no significant changes UITMENT ADVERTISING MANAGER Source Note - Outside, Provider - 03/31/2022 7:20 AM RECRUITMENT ADVERTISING MANAGER documented in this encounter Miscellaneous Notes * Plan of Care - Candice Coughlin RN - 04/01/2022 5:20 AM CST Goal Outcome Evaluation: Plan of Care Reviewed With: patient Overall Patient Progress: no changeOverall Patient Progress: no change Shift: 1395-3778 POD 1 from a fistula revision from cephalic to jugular vein. A&O x4. CMS WDL. VSS. Incisions PIERO, +2-3 edema in LUE. Up ad corey, independently. Tolerated clear liquids overnight. C/o moderate to severe pain, decreased with IV dilaudid. Pt states oxycodone does not really help his pain, RN encouraged multimodal pain management. Plan is to discharge home today pending pain control. UITMENT ADVERTISING MANAGER * Plan of Care - Arcelia Perez RN - 03/31/2022 9:19 PM CST Goal Outcome Evaluation: 03/31/22 1238-2711 Pt A&Ox4. BP elevated, other VSS, O2 100% RA. Tolerating Regular diet. S/p Lt arm fistula revision, positive bruit/thrill. LUE +2-3 edema, elevated on pillows. Up independently, steady, calls appropriately. LUE pain managed with oxycodone and IV dilaudid. PIV Rt hand saline locked. RN will continue to monitor. 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 Implants: Implant Name Type Inv. Item Serial No. Director Phone Lot No. LRB No. Used Action GORE-JULIOCESAR VASCULAR GRAFT Graft [id number] [employer] Left 1 Implanted UITMENT ADVERTISING MANAGER * Op Note - Genaro Palacios MD - 03/31/2022 4:14 PM CST Procedure Date: 03/31/2022 PREOPERATIVE DIAGNOSIS: Left arm swelling secondary to chronic subclavian vein outflow occlusion ofleft upper arm brachial to cephalic fistula. POSTOPERATIVE DIAGNOSIS: Left arm swelling secondary to chronic subclavian vein outflow occlusion of left upper arm brachial to cephalic fistula. OPERATIVE PROCEDURE: Left infraclavicular cephalic vein fistula to left internal jugular outflow revision with 10 mm thin-walled ringed Propaten PTFE bypass graft. SURGEON: Genaor Palacios MD FRUIT AND VEGETABLE CLASSER: Casa Collier MD (Vascular Fellow). ANESTHESIA: General. MEDICATIONS: Ancef 2 grams IV. INDICATIONS FOR PROCEDURE: A 62-year-old patient who has a left upper arm brachial to cephalic fistula. This was dilated very nicely. Unfortunately, he has developed the outflow occlusion of the subclavian vein that could not be corrected by Interventional Radiology. He has developed relatively severe swelling of his left arm second of this. The fistula otherwise continues to function well, but we felt that we would like to salvage the fistula. By prior studies, he had a widely patent internal jugular and innominate vein. We felt an outflow revision to the jugular vein was indicated to help keep the fistula functioning and help the arm swelling. He comes to the operating room today under informed consent. DESCRIPTION OF PROCEDURE: The patient was brought to the Operating Room and induced under general anesthesia. LMA was placed. Calf pneumatic compression boots were used and a pillow was placed under his knees. With duplex ultrasound, we identified a well-dilated internal jugular vein and the well-dilated fistula to the level of the clavicle, measuring over 10 mm in diameter. The fistula was easily palpable in the infraclavicular level. Left arm was placed on an arm board next to the table and the right arm was tucked. Roll towel was placed under the shoulder. Left neck and chest area were prepped and draped. Timeout was called and the sites were identified. VASCULAR EXPOSURE: A 15 blade scalpel was used to make an incision over the cephalic vein fistula just lateral to the clavicle. Dissection was carried down to the deltopectoral groove. The fistula was identified, had a strong pulse and was well arterialized, measuring at least 10 mm in diameter. This was encircled proximally and distally with Silastic vessel loops with no side branches being noted. As we occluded the fistula with a vessel loop, Doppler revealed very limited outflow since the branches were in the clavicular area and we wanted to preserve the residual outflow tract. We then made a vertical incision between the heads of the sternocleidomastoid muscle. Dissection was carried down to the platysmas. We retracted the medial and lateral heads of the sternocleidomastoid muscle. This allowed us to easily identify the internal jugular vein. This was dissected free, avoiding the ansa cervicalis/phrenic/vagus nerves. We did divide the omohyoid muscle proximally, so we could have better exposure and improve our angles for outflow revision. Proximal and distal Silasticvessel loops were placed. We then created a tunnel with the aid of a large vascular clamp from the infraclavicular incision anterior to the clavicle down to the neck incision going under the lateral head of the sternocleidomastoid muscle. This was well dilated digitally. OUTFLOW REVISION: 3000 units intravenous heparin were given. We selected a 10 mm Propaten thin-walled ringed PTFE graft. This was trimmed obliquely just beyond the rings. Vessel loops were tightened around the internal jugular vein. An 11 blade was used to make a venotomy on the anterolateral aspect of the vein. This was extended with a 4.5 mm punch to make an opening approximately 13 mm in length. A spatulated PTFE graft was sewn in an end-to-side fashion with running 6-0 Prolene suture and loupe magnification. We placed a small vascular clamp on the PTFE graft and released the vessel loops.A small amount of needle hole bleeding stopped with Surgicel and time. The ringed graft was then brought in our subcutaneous tunnel under the clavicular head of the sternocleidomastoid muscle and anterior to the clavicle in a very gentle curve. Vessel loops were then tightened around the cephalic vein fistula. An 11 mm venotomy was made and the punch was again used to widely open this. The vein was arterialized, as expected from the longstanding fistula. The rings were removed appropriately and the graft was spatulated and end-to-side anastomosis was created with a running 6-0 Prolene suture.Vessel loops were sequentially loosened and we removed the clamp on the graft going into the internal jugular vein. We had excellent pulse within the PTFE graft. Excellent high flow Doppler signals were appreciated within the graft and internal jugular vein. We checked our angles. We had a very gentle curve going down to the internal jugular vein with no tension. Small amount of Surgicel was placed on the anastomosis and eventually removed. The deltopectoral fascia was approximated with interrupted 3-0 Vicryl. The platysma muscle was approximately with interrupted 3-0 Vicryl in the neck incision. Skin was closed with 5-0 Monocryl in a subcuticular fashion. Wounds were infiltrated with 0.5% Marcaine for post- analgesia. Surgical adhesive was applied to both incisions. A Spandage mesh compression dressing was then applied to his arm to help resolve the edema. The patient tolerated the procedure well. ESTIMATED BLOOD LOSS: Less than 5 mL. COMPLICATIONS: None. Genaro Palacios MD MT: [id number] Name: BECKY GALLOWAY MRN: [id number] Account: [id number] : 1960 Procedure Date: 03/31/2022 Document: [id number] cc: Genaro Palacios MD UITMENT ADVERTISING MANAGER documented in this encounter Plan of Treatment Upcoming Encounters Date Type Department Care Team (Late st Contact Info) Description 04/01/2023 1:15 PM RECRUITMENT ADVERTISING MANAGER Office Visit [facility] [address] [place] [address] Yolanda Wilkerson, RADHA [address] [place] [phone] 07/13/2023 8:00 AM CDT Virtual Visit [facility] [address] [place] [phone] Deuce Majano PA-C [address] [place] [phone] documented as of this encounter Procedures Procedure Name Priority Date/Time Associated Diagnosis Comments GLUCOSE BY METER Routine 04/01/2022 6:31 AM RECRUITMENT ADVERTISING MANAGER PLATELET COUNT Routine 03/31/2022 10:57 PM RECRUITMENT ADVERTISING MANAGER TYPE AND SCREEN, ADULT STAT 03/31/2022 1:50 PM RECRUITMENT ADVERTISING MANAGER ABO/RH TYPE AND SCREEN STAT 03/31/2022 1:50 PM RECRUITMENT ADVERTISING MANAGER REVISION, ARTERIOVENOUS FISTULA, UPPER EXTREMITY 03/31/2022 1:34 PM RECRUITMENT ADVERTISING MANAGER AVF (arteriovenous fistula) (H) Occlusion of left subclavian vein (H) Special Needs Pt is driving himself here, staying overnight, and expecting to drive self home the day after.He was told this would be okay. HEMOGLOBIN STAT 03/31/2022 12:41 PM RECRUITMENT ADVERTISING MANAGER BASIC METABOLIC PANEL STAT 03/31/2022 12:41 PM RECRUITMENT ADVERTISING MANAGER EKG 12-LEAD, TRACING ONLY STAT 03/31/2022 12:32 PM RECRUITMENT ADVERTISING MANAGER documented in this encounter Results * (ABNORMAL) Glucose by meter (04/01/2022 6:31 AM RECRUITMENT ADVERTISING MANAGER) Pathologist [facility] [place] GLUCOSE BY METER POCT 108(H) 70 - 99 mg/dL 04/01/2022 6:38 AM RECRUITMENT ADVERTISING MANAGER LABORATORY POC Comment:Dr/RN Notified Blood, Capillary BLOOD SPECIMEN / Unknown 04/01/2022 6:31 AM RECRUITMENT ADVERTISING MANAGER 04/01/2022 6:38 AM RECRUITMENT ADVERTISING MANAGER Genaro Palacios MD LAB - BEAKER PO CT LABORATORY POC [facility] Lab [address], [address] [place] [address], [place] [phone] * (ABNORMAL) Platelet count (03/31/2022 10:57 PM RECRUITMENT ADVERTISING MANAGER) [facility] Platelet Count 134(L) 150 - 450 10e3/uL 03/31/2022 11:21 PM RECRUITMENT ADVERTISING MANAGER LABORATORY Blood STRUCTURE OF RIGHT UPPER LIMB / Unknown Venipuncture / Unknown 03/31/2022 10:57 PM RECRUITMENT ADVERTISING MANAGER 03/31/2022 11:16 PM RECRUITMENT ADVERTISING MANAGER Genaro Palacios MD LAB - BLOOD ORD ERABLES LABORATORY [facility] Lab [address] 1[address] floor, [address] [place] [address], [place] [phone] * Adult Type and Screen (03/31/2022 1:50 PM RECRUITMENT ADVERTISING MANAGER) [facility] ABO/RH(D) A POS 03/31/2022 1:25 PM RECRUITMENT ADVERTISING MANAGER BLOOD BANK Antibody Screen Negative Negative 03/31/2022 1:25 PM RECRUITMENT ADVERTISING MANAGER BLOOD BANK SPECIMEN EXPIRATION DATE [id number] 03/31/2022 1:25 PM RECRUITMENT ADVERTISING MANAGER BLOOD BANK Blood BLOOD SPECIMEN / Unknown Venipuncture / Unknown 03/31/2022 1:50 PM RECRUITMENT ADVERTISING MANAGER 03/31/2022 2:14 PM RECRUITMENT ADVERTISING MANAGER Jad Pizano MD LAB - BLOOD BANK LE[facility]Y T ORDER BLOOD BANK [address] [place] [address], [facility] * (ABNORMAL) Hemoglobin (03/31/2022 12:41 PM RECRUITMENT ADVERTISING MANAGER) [facility] Hemoglobin 7.8(L) 13.3 - 17.7 g/dL 03/31/2022 12:56 PM RECRUITMENT ADVERTISING MANAGER LABORATORY Blood STRUCTURE OF RIGHT UPPER LIMB / Unknown Venipuncture / Unknown 03/31/2022 12:41 PM RECRUITMENT ADVERTISING MANAGER 03/31/2022 12:52 PM RECRUITMENT ADVERTISING MANAGER Brett Kendall MD LAB - BLOOD ORDERAB LES LABORATORY [facility] [address] 1[address], [address] [place] [address], [facility] [phone] * (ABNORMAL) Basic metabolic panel (03/31/2022 12:41 PM RECRUITMENT ADVERTISING MANAGER) [facility] Sodium 140 136 - 145 mmol/L 03/31/2022 1:20 PM [facility] Potassium 4.8 3.4 - 5.3 mmol/L 03/31/2022 1:20 PM [facility] Chloride 96(L) 98 - 107 mmol/L 03/31/2022 1:20 PM [facility] Carbon Dioxide (CO2) 31(H) 22 - 29 mmol/L 03/31/2022 1:20 PM [facility] Anion Gap 13 7 - 15 mmol/L 03/31/2022 1:20 PM [facility] Urea Nitrogen 26.2(H) 8.0 - 23.0 mg/dL 03/31/2022 1:20 PM [facility] Creatinine 7.63(H) 0.67 - 1.17 mg/dL 03/31/2022 1:20 PM [facility] Calcium 9.8 8.8 - 10.2 mg/dL 03/31/2022 1:20 PM [facility] Glucose 76 70 - 99 mg/dL 03/31/2022 1:20 PM [facility] GFR Estimate 7(L) >60 mL/min/1.7 3m2 03/31/2022 1:20 PM RECRUITMENT ADVERTISING MANAGER LABORATORY Comment:eGFR calculated us2020 CKD-EPI equation. Blood STRUCTURE OF RIGHT UPPER LIMB / Unknown Venipuncture / Unknown 03/31/2022 12:41 PM RECRUITMENT ADVERTISING MANAGER 03/31/2022 12:52 PM RECRUITMENT ADVERTISING MANAGER Genaro Palacios MD LAB - BLOOD ORD ERABLES LABORATORY [facility] [address] 1st floor, [address] [place] [address], [facility] [phone] * EKG 12-lead, tracing only (03/31/2022 12:32 PM RECRUITMENT ADVERTISING MANAGER) Systolic Blood Pressure mmHg RADIOLOGY RESULTS Diastolic Blood Pressure mmHg RADIOLOGY RESULTS Ventricular Rate 82 BPM RAD IOLOGY RESULTS Atrial Rate 82 BPM RADIOLOG Y RESULTS TN Interval 144 ms RADIOLOG Y RESULTS QRS Duration 126 ms RADIOLO GY RESULTS QT 418 ms RADIOLOGY RESULTS QTc 488 ms RADIOLOGY RESULTS P [place] 70 degrees RADIOLOGY RESULTS R AXIS -50 degrees RADIOLOGY RESULTS T [place] 55 degrees RADIOLOGY RESULTS Interpretation ECG Sinus rhythm Right bundle branch block Left anterior fascicular block Bifascicular block Voltage criteria for left ventricular hypertrophy Cannot rule out Septal infarct , age undetermined Abnormal ECG When compared with ECG of 04-MAY-2021 09:32, Right bundle branch block is now Present Minimal criteria for Septal infarct are now Present Confirmed by MD EWA, DEMOS ([id number]), desk editor Claudia Perez ([id number]) on 04/02/2022 12:24:30 PM RADIOLOGY RESULTS 03/31/2022 12:3 2 PM RECRUITMENT ADVERTISING MANAGER 04/02/2022 12:24 PM RECRUITMENT ADVERTISING MANAGER Genaro Palacios MD ECG ORDERABLES RADIOLOGY RESULTS documented in this encounter Visit Diagnoses Diagnosis Neoplasm of unspecified behavior of bone, soft tissue, and skin AVF (arteriovenous fistula) (H24) Arteriovenous fistula, acquired 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 The following medications may be removed by dialysis and should be given after dialysis: aspirin acetaminophen (TYLENOL) tablet 975 mg 975 mg, Oral, EVERY 8 HOURS, First dose on Wed03/31/22 at 2200, For 3 days, Administer for multimodal surgical pain management. Maximum acetaminophen dose from all sources = 75 mg/kg/day not to exceed 4 grams/day. $Given 04/01/2022 6:48 AM RECRUITMENT ADVERTISING MANAGER 975 mg amLODIPine (NORVASC) tablet 10 mg 10 mg, Oral, DAILY, First dose on Wed04/01/22 at 0800 $Given 04/01/2022 7:44 AM RECRUITMENT ADVERTISING MANAGER 10 mg aspirin EC tablet 81 mg 81 mg, Oral, DAILY, First dose on Wed03/31/22 at 1999, DO NOT CRUSH. $Given 04/01/2022 7:44 AM RECRUITMENT ADVERTISING MANAGER 81 mg $Given 03/31/2022 8:16 PM RECRUITMENT ADVERTISING MANAGER 81 mg bupivacaine (MARCAINE) 0.5% injection MDV PRN, Starting on Wed03/31/22 at 1601, Intra-procedure $Given 03/31/2022 4:01 PM RECRUITMENT ADVERTISING MANAGER 20 mLs Operative Site/Surgi radha Site calcitRIOL (ROCALTROL) capsule 1.5 mcg 1.5 mcg, Oral, DAILY, First dose on Wed04/01/22 at 0800 $Given 04/01/2022 7:43 AM RECRUITMENT ADVERTISING MANAGER 1.5 mcg calcium acetate (PHOSLO) capsule 2,668 mg 2,668 mg, Oral, 3 TIMES DAILY, First dose on Wed03/31/22 at 1999, Best if given with meals. $Given 04/01/2022 7:44 AM RECRUITMENT ADVERTISING MANAGER 2,668 mg $Given 03/31/2022 8:15 PM RECRUITMENT ADVERTISING MANAGER 2,668 mg carvedilol (COREG) tablet 12.5 mg 12.5 mg, Oral, 2 TIMES DAILY, First dose on Wed03/31/22 at 2000 $Given 04/01/2022 7:44 AM RECRUITMENT ADVERTISING MANAGER 12.5 mg $Given 03/31/2022 8:15 PM RECRUITMENT ADVERTISING MANAGER 12.5 mg folic acid (FOLVITE) tablet 1 mg 1 mg, Oral, EVERY MORNING, First dose on Wed04/01/22 at 0800 $Given 04/01/2022 7:43 AM RECRUITMENT ADVERTISING MANAGER 1 mg heparin 2,500 units in 250 mL 0.9% NaCl PRN, Starting on Wed03/31/22 at 1553, Intra-procedure $Given 03/31/2022 3:53 PM RECRUITMENT ADVERTISING MANAGER 40 mLs Operative Site/Surgical Site heparin ANTICOAGULANT injection 5,000 Units 5,000 Units, Subcutaneous, EVERY 8 HOURS, First dose on Wed04/01/22 at 0700, Check to make sure start date/time is 12-24 hours post op unless documented complication. Continue until discharge to home. HOLD if platelet count falls below 50% of baseline or less than 100,000/??L and notify provider. High concentration heparin. Not for line flush or cath care. $Given 04/01/2022 6:49 AM RECRUITMENT ADVERTISING MANAGER 5,000 Units HYDROmorphone (DILAUDID) injection 0.2 mg 0.2 mg, Intravenous, EVERY 2 HOURS PRN, moderate pain, Starting on Wed03/31/22 at 1804, IF patient unable to take oral pain medication or pain not controlled with oral analgesics. Hold IV PRN opioid dose for analgesic side effects. Notify provider to assess for uncontrolled pain or analgesic side effects. HYDROmorphone (DILAUDID) injection 0.4 mg 0.4 mg, Intravenous, EVERY 2 HOURS PRN, severe pain, Starting on Wed03/31/22 at 1804, IF patient unable to take oral pain medication or pain not controlled with oral analgesics. Hold IV PRN opioid dose for analgesic side effects. Notify provider to assess for uncontrolled pain or analgesic side effects. $Given 04/01/2022 3:26 AM RECRUITMENT ADVERTISING MANAGER 0.4 mg $Given 04/01/2022 12:47 AM RECRUITMENT ADVERTISING MANAGER 0.4 mg $Given 03/31/2022 10:16 PM RECRUITMENT ADVERTISING MANAGER 0.4 mg multivitamin RENAL (NEPHROCAPS/TRIPHROCAPS) capsule 1 capsule 1 capsule, Oral, EVERY MORNING, First dose on Wed04/01/22 at 0800 $Given 04/01/2022 7:43 AM RECRUITMENT ADVERTISING MANAGER 1 capsule naloxone (NARCAN) injection 0.2 mg 0.2 mg, Intravenous, EVERY 2 MIN PRN, opioid reversal, Starting on Wed03/31/22 at 1824, Administer intravenous route when available and notify provider when administered. For unintended sedation or respiratory depression if all of the below criteria are met: ~ respiratory rate LESS than or EQUAL to 8. ~SaO2 less than 92% and or/end-tidal CO2 is greater than 50. ~ the patient is receiving an opioid, has unintended sedations assessed as RASS (-3), and is currently not on mechanical ventilation. RASS scale moderate (-3) is movement or eye opening to voice but no eye contact. Patient Monitoring Once the patient has demonstrated a response to the naloxone, continue to monitor respiratory rate, depth, oxygen saturation and end-tidal CO2 (if available) every 15 minutes x 2, then every 30 minutes x 2, then every 1 hour x 1 after each naloxone dose. Consider transfer to ICU if patient respiratory parameters have not improved after 4 naloxone doses. naloxone (NARCAN) injection 0.2 mg 0.2 mg, Intramuscular, EVERY 2 MIN PRN, opioid reversal, Starting on Wed03/31/22 at 1824, Administer intramuscular if an intravenous route is not available and notify provider when administered. For unintended sedation or respiratory depression if all of the below criteria are met: ~ respiratory rate LESS than or EQUAL to 8. ~SaO2 less than 92% and or/end-tidal CO2 is greater than 50. ~ the patient is receiving an opioid, has unintended sedations assessed as RASS (-3), and is currently not on mechanical ventilation. RASS scale moderate (-3) is movement or eye opening to voice but no eye contact. Patient Monitoring Once the patient has demonstrated a response to the naloxone, continue to monitor respiratory rate, depth, oxygen saturation and end-tidal CO2 (if available) every 15 minutes x 2, then every 30 minutes x 2, then every 1 hour x 1 after each naloxone dose. Consider transfer to ICU if patient respiratory parameters have not improved after 4 naloxone doses. naloxone (NARCAN) injection 0.4 mg 0.4 mg, Intravenous, EVERY 2 MIN PRN, opioid reversal, Starting on Wed03/31/22 at 1824, Administer intravenous route when available and notify provider when administered. For unintended sedation or respiratory depression if all of the below criteria are met: ~ respiratory rate LESS than or EQUAL to 8. ~ SaO2 less than 92% and or/end-tidal CO2 is greater than 50. ~ the patient is receiving an opioid, has unintended sedation assessed as RASS (-4) or (-5) and patient is currently not on mechanical ventilation. RASS scale (-4) is deep sedation with no response to voice but movement or eye opening to physical stimulation. RASS scale (-5) is unarousable. Patient Monitoring Once the patient has demonstrated a response to the naloxone, continue to monitor respiratory rate, depth, oxygen saturation and end-tidal CO2 (if available) every 15 minutes x 2, then every 30 minutes x 2, then every 1 hour x 1 after each naloxone dose. Consider transfer to ICU if patient respiratory parameters have not improved after 4 naloxone doses. naloxone (NARCAN) injection 0.4 mg 0.4 mg, Intramuscular, EVERY 2 MIN PRN, opioid reversal, Starting on Wed03/31/22 at 1824, Administer intramuscular if an intravenous route is not available and notify provider when administered. For unintended sedation or respiratory depression if all of the below criteria are met: ~ respiratory rate LESS than or EQUAL to 8. ~ SaO2 less than 92% and or/end-tidal CO2 is greater than 50. ~ the patient is receiving an opioid, has unintended sedation assessed as RASS (-4) or (-5) and patient is currently not on mechanical ventilation. RASS scale (-4) is deep sedation with no response to voice but movement or eye opening to physical stimulation. RASS scale (-5) is unarousable. Patient Monitoring Once the patient has demonstrated a response to the naloxone, continue to monitor respiratory rate, depth, oxygen saturation and end-tidal CO2 (if available) every 15 minutes x 2, then every 30 minutes x 2, then every 1 hour x 1 after each naloxone dose. Consider transfer to ICU if patient respiratory parameters have not improved after 4 naloxone doses. omeprazole (priLOSEC) CR capsule 20 mg 20 mg, Oral, EVERY MORNING, First dose on Wed04/01/22 at 0730 $Given 04/01/2022 6:48 AM RECRUITMENT ADVERTISING MANAGER 20 mg ondansetron (ZOFRAN ODT) ODT tab 4 mg 4 mg, Oral, EVERY 6 HOURS PRN, nausea, vomiting, Starting on Wed03/31/22 at 1999, This is Step 1 of nausea and vomiting management. If nausea not resolved in 15 minutes, go to Step 2 prochlorperazine (COMPAZINE). Do not push through foil backing. Peel back foil and gently remove. Place on tongue immediately. Administration with liquid unnecessary With dry hands, peel back foil backing and gently remove tablet. Do not push oral disintegrating tablet through foil backing. Administer immediately on tongue and oral disintegrating tablet dissolves in seconds, then swallow with saliva. Liquid not required. ondansetron (ZOFRAN) injection 4 mg 4 mg, Intravenous, EVERY 6 HOURS PRN, nausea, vomiting, Administer over 2-5 Minutes, Starting on Wed03/31/22 at 1999, This is Step 1 of nausea and vomiting management. If nausea not resolved in 15 minutes, go to Step 2 prochlorperazine (COMPAZINE). Irritant. oxyCODONE (ROXICODONE) tablet 10 mg 10 mg, Oral, EVERY 4 HOURS PRN, severe pain, Starting on Wed03/31/22 at 1804, Hold oral PRN dose for analgesic side effects. Notify provider to assess for uncontrolled pain or analgesic side effects. Hold while on IV ERP IMPLEMENTATION CONSULTANT or with regular IV opioid dosing. $Given 04/01/2022 2:07 AM RECRUITMENT ADVERTISING MANAGER 10 mg oxyCODONE (ROXICODONE) tablet 5 mg 5 mg, Oral, EVERY 4 HOURS PRN, moderate pain, Starting on Wed03/31/22 at 1804, Hold oral PRN dose for analgesic side effects. Notify provider to assess for uncontrolled pain or analgesic side effects. Hold while on IV ERP IMPLEMENTATION CONSULTANT or with regular IV opioid dosing. $Given 03/31/2022 6:42 PM RECRUITMENT ADVERTISING MANAGER 5 mg simvastatin (ZOCOR) tablet 20 mg 20 mg, Oral, EVERY MORNING, First dose on Wed04/01/22 at 0800 $Given 04/01/2022 7:44 AM RECRUITMENT ADVERTISING MANAGER 20 mg sodium chloride (PF) 0.9% PF flush 3 mL 3 mL, Intracatheter, EVERY 8 HOURS, First dose on Wed03/31/22 at 1830, to lock peripheral IV dormant line $Given 03/31/2022 6:44 PM RECRUITMENT ADVERTISING MANAGER 3 mLs sodium chloride (PF) 0.9% PF flush 3 mL 3 mL, Intracatheter, EVERY 1 MIN PRN, line flush, other, to ensure patency or to lock dormant line, Starting on Wed03/31/22 at 1804 $Given 04/01/2022 3:26 AM RECRUITMENT ADVERTISING MANAGER 3 mLs documented in this encounter Active and Recently Administered Medications Times are shown in RECRUITMENT ADVERTISING MANAGER. Scheduled Medication Order 03/30/2022 03/31/2022 04/01/2022 - MEDICATION INSTRUCTIONS for Dialysis Patients - SEE ADMIN INSTRUCTIONS, Starting on Wed03/31/22 at 1835, Until Wed04/01/22 at 1025, Do not give any medication that may affect blood pressure or volume before dialysis. The following medications may be removed by dialysis and should be given after dialysis: aspirin acetaminophen (TYLENOL) tablet 975 mg 975 mg, Oral, EVERY 8 HOURS, First dose on Wed03/31/22 at 2200, For 3 days, Administer for multimodal surgical pain management. Maximum acetaminophen dose from all sources = 75 mg/kg/day not to exceed 4 grams/day. 2132 (Not Given - Provider: Arcelia Perez RN - Reason: Patient/family refused) 0648 ($Given - Provider: Candice Coughlin RN) amLODIPine (NORVASC) tablet 10 mg 10 mg, Oral, DAILY, First dose on Wed04/01/22 at 0800 0744 ($Given - Provi jimbo: Matilda Joya RN) aspirin EC tablet 81 mg 81 mg, Oral, DAILY, First dose on Wed03/31/22 at 2000, DO NOT CRUSH. 2015 ($Given - Provider: Arcelia Perez RN) 0744 ($Given - Provider: Matilda Joya RN)0900 (Canceled Entry - Provider: Orders Generic Provider - Comment: Automatically canceled at discontinue of medication order) calcitRIOL (ROCALTROL) capsule 1.5 mcg 1.5 mcg, Oral, DAILY, First dose on Wed04/01/22 at 0800 0743 ($Given - Provi jimbo: Matilda Joya RN) calcium acetate (PHOSLO) capsule 2,668 mg 2,668 mg, Oral, 3 TIMES DAILY, First dose on Wed03/31/22 at 2000, Best if given with meals. 2014 ($Given - Provider: Arcelia Perez RN) 0744 ($Given - Provider: Matilda Joya, FATOUMATA) carvedilol (COREG) tablet 12.5 mg 12.5 mg, Oral, 2 TIMES DAILY, First dose on Wed03/31/22 at 2000 2014 ($Given - Provider: Arcelia Perez, FATOUMATA) 0744 ($Given - Provider: Matilda Joya, FATOUMATA) ceFAZolin Sodium (ANCEF) injection 2 g (COMPLETED) Routine, 2 g, Intravenous, PRE-OP/PRE-PROCEDURE, Starting on Wed03/31/22 at 1230, For 1 dose, Give first dose within 1 hour PRIOR to incision. If patient weight is greater than or equal to 120 kg increase dose to 3 g., Indications: Perioperative Pharmacoprophylaxis, Pre-procedure 1401 ($Given - Provider: Edgardo De La Paz, EMILY WINDOW SHADE ESTIMATOR) folic acid (FOLVITE) tablet 1 mg 1 mg, Oral, EVERY MORNING, First dose on Wed04/01/22 at 0800 0743 ($Given - Provi jimbo: Matilda Joya RN) heparin ANTICOAGULANT injection 5,000 Units 5,000 Units, Subcutaneous, EVERY 8 HOURS, First dose on Wed04/01/22 at 0700, Check to make sure start date/time is 12-24 hours post op unless documented complication. Continue until discharge to home. HOLD if platelet count falls below 50% of baseline or less than 100,000/??L and notify provider. High concentration heparin. Not for line flush or cath care. 0649 ($Given - Provi jimbo: Candice Coughlin RN) multivitamin RENAL (NEPHROCAPS/TRIPHROCAPS) capsule 1 capsule 1 capsule, Oral, EVERY MORNING, First dose on Wed04/01/22 at 0800 0743 ($Given - Provi jimbo: Matilda Joya RN) omeprazole (priLOSEC) CR capsule 20 mg 20 mg, Oral, EVERY MORNING, First dose on Wed04/01/22 at 0730 0648 ($Given - Provi jimbo: Candice Coughlin RN) polyethylene glycol (MIRALAX) Packet 17 g 17 g, Oral, DAILY, First dose on Wed04/01/22 at 0900, To prevent constipation. Mixed prescribed dose in 8 ounces of water, juice or soda. Administer daily starting at 0900 on POD 1. Hold for loose stools. 1 Packet = 17 grams. Mix each gram with at least 1/2 ounce (15 mL) of water - 8 ounces for 17 g dose, 4 ounces for 8.5 g dose, 2 ounces for 4 g dose. Follow with the same volume of water. Hold for loose stools unless being administered as part of a bowel prep regimen or bowel clean out. 0900 (Canceled Entry - Provider: Orders Generic Provider - Comment: Automatically canceled at discontinue of medication order) senna-docusate (SENOKOT-S/PERICOLACE) 8.6-50 MG per tablet 1 tablet 1 tablet, Oral, 2 TIMES DAILY, First dose on Wed03/31/22 at 2100, To prevent constipation. Hold for loose stools Hold for loose stools. 2010 (Not Given - Provider: Arcelia Perez RN - Reason: Patient/family refused) 0900 (Canceled Entry - Provider: Orders Generic Provider - Comment: Automatically canceled at discontinue of medication order) simvastatin (ZOCOR) tablet 20 mg 20 mg, Oral, EVERY MORNING, First dose on Wed04/01/22 at 0800 0744 ($Given - Provi jimbo: Matilda Joya RN) sodium chloride (PF) 0.9% PF flush 3 mL 3 mL, Intracatheter, EVERY 8 HOURS, First dose on Wed03/31/22 at 1830, to lock peripheral IV dormant line 1844 ($Given - Provider: Matilda Joya RN) 0138 (Canceled Entry - Provider: Candice Coughlin RN - Comment: already given this shift w/ IV dilaudid) Continuous Medication Order 03/30/2022 03/31/2022 04/01/2022 sodium chloride 0.9% infusion (CANCELED) at 10 mL/hr, Intravenous, CONTINUOUS, IF patient on dialysis., Pre-procedure, Starting on Wed03/31/22 at 1230, Until Wed03/31/22 at 1626 1255 ($New Bag - Provider: Shaggy Garner RN)1353 (Paused - Provider: Edgardo De La Paz APRN WINDOW SHADE ESTIMATOR - Comment: Switch to gravity)1354 ($New Bag - Provider: Edgardo De La Paz, EMILY WINDOW SHADE ESTIMATOR)1551 (Anesthesia Volume Adjustment - Provider: Janessa Stephen, EMILY WINDOW SHADE ESTIMATOR) PRN Medication Order 03/30/2022 03/31/2022 04/01/2022 acetaminophen (TYLENOL) tablet 650 mg 650 mg, Oral, EVERY 4 HOURS PRN, other, For optimal non-opioid multimodal pain management to improve pain control., Starting on Wed04/03/22 at 1800, May give first dose 4 hours after last scheduled dose of acetaminophen (TYLENOL). Maximum acetaminophen dose from all sources = 75 mg/kg/day not to exceed 4 grams/day. bisacodyl (DULCOLAX) suppository 10 mg 10 mg, Rectal, DAILY PRN, constipation, Use if Magnesium hydroxide (MILK of MAGNESIA) not effective after 24 hours. May discontinue if patient having bowel movement., Starting on Wed03/31/22 at 1804, Hold for loose stools. bupivacaine (MARCAINE) 0.5% injection MDV (CANCELED) PRN, Starting on Wed03/31/22 at 1601, Intra-procedure 1601 ($Given - Provider: Genaro Palacios MD) heparin 2,500 units in 250 mL 0.9% NaCl (CANCELED) PRN, Starting on Wed03/31/22 at 1553, Intra-procedure 1553 ($Given - Provider: Genaro Palacios MD) HYDROmorphone (DILAUDID) injection 0.2 mg(Linked Group 1) 0.2 mg, Intravenous, EVERY 2 HOURS PRN, moderate pain (4-6), Starting on Wed03/31/22 at 1804, IF patient unable to take oral pain medication or pain not controlled with oral analgesics. Hold IV PRN opioid dose for analgesic side effects. Notify provider to assess for uncontrolled pain or analgesic side effects. 2015 (See Alternative - Provider: Arcelia Perez RN)2215 (See Alternative - Provider: Arcelia Perez RN) 46 (See Alternative - Provider: Jalen Hurd RN)0326 (See Alternative - Provider: Candice Coughlin RN) HYDROmorphone (DILAUDID) injection 0.4 mg (CANCELED) 0.4 mg, Intravenous, EVERY 5 MIN PRN, severe pain (7-10), Starting on Wed03/31/22 at 1651, Use FentaNYL (SUBLIMAZE) first if ordered. Administer HYDROmorphone (DILAUDID) up to a total of 2 mg for moderate or severe pain. Notify Provider to assess for uncontrolled pain or analgesic side effects., PACU 1702 ($Given - Provider: Ashley Gagnon RN) HYDROmorphone (DILAUDID) injection 0.4 mg(Linked Group 1) 0.4 mg, Intravenous, EVERY 2 HOURS PRN, severe pain (7-10), Starting on Wed03/31/22 at 1804, IF patient unable to take oral pain medication or pain not controlled with oral analgesics. Hold IV PRN opioid dose for analgesic side effects. Notify provider to assess for uncontrolled pain or analgesic side effects. 2015 ($Given - Provider: Arcelia Perez RN)2216 ($Given - Provider: Arcelia Perez RN) 0047 ($Given - Provider: Jalen Hurd RN)0326 ($Given - Provider: Candice Coughlin RN) lidocaine (LMX4) cream Topical, EVERY 1 HOUR PRN, pain, with VAD insertion, Starting on Wed03/31/22 at 1804, Apply at least 30 minutes prior to VAD insertion in divided doses as needed for size of site for insertion. MAX Dose: 2.5 g (?? of 5 g tube) Do NOT give if patient has a history of allergy to any local anesthetic or any pierce product. Do NOT use both lidocaine intradermal/subcutaneous injection and the lidocaine cream on the same site. lidocaine 1 % 0.1-1 mL 0.1-1 mL, Other, EVERY 1 HOUR PRN, mild pain with VAD insertion, Starting on Wed03/31/22 at 1804, MAX dose 1 mL subcutaneous OR intradermal along the side of the vein in divided doses as needed for VAD insertion. Do NOT give if patient has a history of allergy to any local anesthetic or any pierce product. Do NOT use both lidocaine intradermal/subcutaneous injection and the lidocaine cream on the same site. magnesium hydroxide (MILK OF MAGNESIA) suspension 30 mL 30 mL, Oral, DAILY PRN, constipation, Use if preventive measures (senna-docusate, docusate, and polyethylene glycol) are not effective., Starting on Wed03/31/22 at 1804, Shake well. Hold for loose stools. naloxone (NARCAN) injection 0.2 mg(Linked Group 2) 0.2 mg, Intravenous, EVERY 2 MIN PRN, opioid reversal, Starting on Wed03/31/22 at 1824, Administer intravenous route when available and notify provider when administered. For unintended sedation or respiratory depression if all of the below criteria are met: ~ respiratory rate LESS than or EQUAL to 8. ~SaO2 less than 92% and or/end-tidal CO2 is greater than 50. ~ the patient is receiving an opioid, has unintended sedations assessed as RASS (-3), and is currently not on mechanical ventilation. RASS scale moderate (-3) is movement or eye opening to voice but no eye contact. Patient Monitoring Once the patient has demonstrated a response to the naloxone, continue to monitor respiratory rate, depth, oxygen saturation and end-tidal CO2 (if available) every 15 minutes x 2, then every 30 minutes x 2, then every 1 hour x 1 after each naloxone dose. Consider transfer to ICU if patient respiratory parameters have not improved after 4 naloxone doses. naloxone (NARCAN) injection 0.2 mg(Linked Group 2) 0.2 mg, Intramuscular, EVERY 2 MIN PRN, opioid reversal, Starting on Wed03/31/22 at 1824, Administer intramuscular if an intravenous route is not available and notify provider when administered. For unintended sedation or respiratory depression if all of the below criteria are met: ~ respiratory rate LESS than or EQUAL to 8. ~SaO2 less than 92% and or/end-tidal CO2 is greater than 50. ~ the patient is receiving an opioid, has unintended sedations assessed as RASS (-3), and is currently not on mechanical ventilation. RASS scale moderate (-3) is movement or eye opening to voice but no eye contact. Patient Monitoring Once the patient has demonstrated a response to the naloxone, continue to monitor respiratory rate, depth, oxygen saturation and end-tidal CO2 (if available) every 15 minutes x 2, then every 30 minutes x 2, then every 1 hour x 1 after each naloxone dose. Consider transfer to ICU if patient respiratory parameters have not improved after 4 naloxone doses. naloxone (NARCAN) injection 0.4 mg(Linked Group 2) 0.4 mg, Intravenous, EVERY 2 MIN PRN, opioid reversal, Starting on Wed03/31/22 at 1824, Administer intravenous route when available and notify provider when administered. For unintended sedation or respiratory depression if all of the below criteria are met: ~ respiratory rate LESS than or EQUAL to 8. ~ SaO2 less than 92% and or/end-tidal CO2 is greater than 50. ~ the patient is receiving an opioid, has unintended sedation assessed as RASS (-4) or (-5) and patient is currently not on mechanical ventilation. RASS scale (-4) is deep sedation with no response to voice but movement or eye opening to physical stimulation. RASS scale (-5) is unarousable. Patient Monitoring Once the patient has demonstrated a response to the naloxone, continue to monitor respiratory rate, depth, oxygen saturation and end-tidal CO2 (if available) every 15 minutes x 2, then every 30 minutes x 2, then every 1 hour x 1 after each naloxone dose. Consider transfer to ICU if patient respiratory parameters have not improved after 4 naloxone doses. naloxone (NARCAN) injection 0.4 mg(Linked Group 2) 0.4 mg, Intramuscular, EVERY 2 MIN PRN, opioid reversal, Starting on Wed03/31/22 at 1824, Administer intramuscular if an intravenous route is not available and notify provider when administered. For unintended sedation or respiratory depression if all of the below criteria are met: ~ respiratory rate LESS than or EQUAL to 8. ~ SaO2 less than 92% and or/end-tidal CO2 is greater than 50. ~ the patient is receiving an opioid, has unintended sedation assessed as RASS (-4) or (-5) and patient is currently not on mechanical ventilation. RASS scale (-4) is deep sedation with no response to voice but movement or eye opening to physical stimulation. RASS scale (-5) is unarousable. Patient Monitoring Once the patient has demonstrated a response to the naloxone, continue to monitor respiratory rate, depth, oxygen saturation and end-tidal CO2 (if available) every 15 minutes x 2, then every 30 minutes x 2, then every 1 hour x 1 after each naloxone dose. Consider transfer to ICU if patient respiratory parameters have not improved after 4 naloxone doses. ondansetron (ZOFRAN ODT) ODT tab 4 mg(Linked Group 3) 4 mg, Oral, EVERY 6 HOURS PRN, nausea, vomiting, Starting on Wed03/31/22 at 2000, This is Step 1 of nausea and vomiting management. If nausea not resolved in 15 minutes, go to Step 2 prochlorperazine (COMPAZINE). Do not push through foil backing. Peel back foil and gently remove. Place on tongue immediately. Administration with liquid unnecessary With dry hands, peel back foil backing and gently remove tablet. Do not push oral disintegrating tablet through foil backing. Administer immediately on tongue and oral disintegrating tablet dissolves in seconds, then swallow with saliva. Liquid not required. ondansetron (ZOFRAN) injection 4 mg(Linked Group 3) 4 mg, Intravenous, EVERY 6 HOURS PRN, nausea, vomiting, Administer over 2-5 Minutes, Starting on Wed03/31/22 at 1999, This is Step 1 of nausea and vomiting management. If nausea not resolved in 15 minutes, go to Step 2 prochlorperazine (COMPAZINE). Irritant. oxyCODONE (ROXICODONE) tablet 10 mg(Linked Group 4) 10 mg, Oral, EVERY 4 HOURS PRN, severe pain (7-10), Starting on Wed03/31/22 at 1804, Hold oral PRN dose for analgesic side effects. Notify provider to assess for uncontrolled pain or analgesic side effects. Hold while on IV ERP IMPLEMENTATION CONSULTANT or with regular IV opioid dosing. 184 (See Alternative - Provider: Matilda Joya RN) 0207 ($Given - Provider: Candice Coughlin RN) oxyCODONE (ROXICODONE) tablet 5 mg(Linked Group 4) 5 mg, Oral, EVERY 4 HOURS PRN, moderate pain (4-6), Starting on Wed03/31/22 at 1804, Hold oral PRN dose for analgesic side effects. Notify provider to assess for uncontrolled pain or analgesic side effects. Hold while on IV ERP IMPLEMENTATION CONSULTANT or with regular IV opioid dosing. 184 ($Given - Provider: Matilda Joya RN) 0207 (See Alternative - Provider: Candice Coughlin RN) sodium chloride (PF) 0.9% PF flush 3 mL 3 mL, Intracatheter, EVERY 1 MIN PRN, line flush, other, to ensure patency or to lock dormant line, Starting on Wed03/31/22 at 1804 0326 ($Given - Provider: Candice Coughlin RN) Linked Groups Order Group 1: HYDROmorphone (DILAUDID) injection 0.2 mgJump to med 0.2 mg, Intravenous, EVERY 2 HOURS PRN, moderate pain (4-6), Starting on Wed03/31/22 at 1804, IF patient unable to take oral pain medication or pain not controlled with oral analgesics. Hold IV PRN opioid dose for analgesic side effects. Notify provider to assess for uncontrolled pain or analgesic side effects. Or HYDROmorphone (DILAUDID) injection 0.4 mgJump to med 0.4 mg, Intravenous, EVERY 2 HOURS PRN, severe pain (7-10), Starting on Wed03/31/22 at 1804, IF patient unable to take oral pain medication or pain not controlled with oral analgesics. Hold IV PRN opioid dose for analgesic side effects. Notify provider to assess for uncontrolled pain or analgesic side effects. Group 2: naloxone (NARCAN) injection 0.2 mgJump to med 0.2 mg, Intravenous, EVERY 2 MIN PRN, opioid reversal, Starting on Wed03/31/22 at 1824, Administer intravenous route when available and notify provider when administered. For unintended sedation or respiratory depression if all of the below criteria are met: ~ respiratory rate LESS than or EQUAL to 8. ~SaO2 less than 92% and or/end-tidal CO2 is greater than 50. ~ the patient is receiving an opioid, has unintended sedations assessed as RASS (-3), and is currently not on mechanical ventilation. RASS scale moderate (-3) is movement or eye opening to voice but no eye contact. Patient Monitoring Once the patient has demonstrated a response to the naloxone, continue to monitor respiratory rate, depth, oxygen saturation and end-tidal CO2 (if available) every 15 minutes x 2, then every 30 minutes x 2, then every 1 hour x 1 after each naloxone dose. Consider transfer to ICU if patient respiratory parameters have not improved after 4 naloxone doses. Or naloxone (NARCAN) injection 0.4 mgJump to med 0.4 mg, Intravenous, EVERY 2 MIN PRN, opioid reversal, Starting on Wed03/31/22 at 1824, Administer intravenous route when available and notify provider when administered. For unintended sedation or respiratory depression if all of the below criteria are met: ~ respiratory rate LESS than or EQUAL to 8. ~ SaO2 less than 92% and or/end-tidal CO2 is greater than 50. ~ the patient is receiving an opioid, has unintended sedation assessed as RASS (-4) or (-5) and patient is currently not on mechanical ventilation. RASS scale (-4) is deep sedation with no response to voice but movement or eye opening to physical stimulation. RASS scale (-5) is unarousable. Patient Monitoring Once the patient has demonstrated a response to the naloxone, continue to monitor respiratory rate, depth, oxygen saturation and end-tidal CO2 (if available) every 15 minutes x 2, then every 30 minutes x 2, then every 1 hour x 1 after each naloxone dose. Consider transfer to ICU if patient respiratory parameters have not improved after 4 naloxone doses. Or naloxone (NARCAN) injection 0.2 mgJump to med 0.2 mg, Intramuscular, EVERY 2 MIN PRN, opioid reversal, Starting on Wed03/31/22 at 1824, Administer intramuscular if an intravenous route is not available and notify provider when administered. For unintended sedation or respiratory depression if all of the below criteria are met: ~ respiratory rate LESS than or EQUAL to 8. ~SaO2 less than 92% and or/end-tidal CO2 is greater than 50. ~ the patient is receiving an opioid, has unintended sedations assessed as RASS (-3), and is currently not on mechanical ventilation. RASS scale moderate (-3) is movement or eye opening to voice but no eye contact. Patient Monitoring Once the patient has demonstrated a response to the naloxone, continue to monitor respiratory rate, depth, oxygen saturation and end-tidal CO2 (if available) every 15 minutes x 2, then every 30 minutes x 2, then every 1 hour x 1 after each naloxone dose. Consider transfer to ICU if patient respiratory parameters have not improved after 4 naloxone doses. Or naloxone (NARCAN) injection 0.4 mgJump to med 0.4 mg, Intramuscular, EVERY 2 MIN PRN, opioid reversal, Starting on Wed03/31/22 at 1824, Administer intramuscular if an intravenous route is not available and notify provider when administered. For unintended sedation or respiratory depression if all of the below criteria are met: ~ respiratory rate LESS than or EQUAL to 8. ~ SaO2 less than 92% and or/end-tidal CO2 is greater than 50. ~ the patient is receiving an opioid, has unintended sedation assessed as RASS (-4) or (-5) and patient is currently not on mechanical ventilation. RASS scale (-4) is deep sedation with no response to voice but movement or eye opening to physical stimulation. RASS scale (-5) is unarousable. Patient Monitoring Once the patient has demonstrated a response to the naloxone, continue to monitor respiratory rate, depth, oxygen saturation and end-tidal CO2 (if available) every 15 minutes x 2, then every 30 minutes x 2, then every 1 hour x 1 after each naloxone dose. Consider transfer to ICU if patient respiratory parameters have not improved after 4 naloxone doses. Group 3: ondansetron (ZOFRAN ODT) ODT tab 4 mgJump to med 4 mg, Oral, EVERY 6 HOURS PRN, nausea, vomiting, Starting on Wed03/31/22 at 1999, This is Step 1 of nausea and vomiting management. If nausea not resolved in 15 minutes, go to Step 2 prochlorperazine (COMPAZINE). Do not push through foil backing. Peel back foil and gently remove. Place on tongue immediately. Administration with liquid unnecessary With dry hands, peel back foil backing and gently remove tablet. Do not push oral disintegrating tablet through foil backing. Administer immediately on tongue and oral disintegrating tablet dissolves in seconds, then swallow with saliva. Liquid not required. Or ondansetron (ZOFRAN) injection 4 mgJump to med 4 mg, Intravenous, EVERY 6 HOURS PRN, nausea, vomiting, Administer over 2-5 Minutes, Starting on Wed03/31/22 at 1999, This is Step 1 of nausea and vomiting management. If nausea not resolved in 15 minutes, go to Step 2 prochlorperazine (COMPAZINE). Irritant. Group 4: oxyCODONE (ROXICODONE) tablet 5 mgJump to med 5 mg, Oral, EVERY 4 HOURS PRN, moderate pain (4-6), Starting on Wed03/31/22 at 1804, Hold oral PRN dose for analgesic side effects. Notify provider to assess for uncontrolled pain or analgesic side effects. Hold while on IV ERP IMPLEMENTATION CONSULTANT or with regular IV opioid dosing. Or oxyCODONE (ROXICODONE) tablet 10 mgJump to med 10 mg, Oral, EVERY 4 HOURS PRN, severe pain (7-10), Starting on Wed03/31/22 at 1804, Hold oral PRN dose for analgesic side effects. Notify provider to assess for uncontrolled pain or analgesic side effects. Hold while on IV ERP IMPLEMENTATION CONSULTANT or with regular IV opioid dosing. 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 Care Teams Fish And Wildlife Warden Relationship Specialty Start Date End Date Maximino Arredondo MD [address] [place] [id number] PCP - General Family Medicine 04/02/21 Chapin Khan MD [address] [place] [address] [phone] Urology 05/10/20 Brionna Covarrubias, RN Registered Nurse Oncology 05/10/20 09/01/22 Driss Morales MD [address] [place] [address] [phone] Assigned Surgical Provider 11/17/20 04/10/22 Danya Barraza [facility] [address] [place] [address] [phone] Pharmacist Pharmacist Camera Person 12/25/20 Romi Fairbanks MD [facility] [address] [place], [place] [id number] Assigned Gastroenterology Provider 01/05/21 06/12/22 Danya Barraza [facility] [address] [place] [address] [phone] Assigned MTM Pharmacist 11/12/21 06/26/22 Jeanette French, RN [address] [place] [address] Specialty Nitrocellulose Operator Gastroenterology 12/30/21 Tammy Greenberg MD [address] [place] [address] [address] [place] [address] Cardiovascular Disease 02/24/22 Genaro Palacios MD [address] [facility] [address] [place] [phone] Assigned Heart and Vascular Provider 03/28/22 documented as of this encounter
--- OUTSIDE RECORDS SUMMARY | 2023-03-14 02:41 | XMS_ITS | Encounter Summary ---
Author Name Unknown Organization [place] Address [address] [place] [address]. [place] [address] Care Team Providers Care Adult Protective Caseworker Name Role Phone Chapin Khan MD Unavailable [phone] Brionna Covarrubias RN Unavailable [phone] Driss Morales MD Unavailable [phone] Danya Barraza [facility] Unavailable Romi Fairbanks MD Unavailable [phone] Maximino Arredondo MD Primary Care Provider Danya Barraza [facility] Unavailable Jeanette French RN Unavailable [phone] Tammy Greenberg MD Unavailable [phone] Genaro Palacios MD Unavailable [phone] Reason for Visit * Auth/Cert (Routine) Specialty Diagnoses / Procedures Referred By Contac t Referred To Contact Surgery Diagnoses AVF (arteriovenous fistula) (H24) Occlusion of left subclavian vein (H) AVF (arteriovenous fistula) (H) [I77.0] 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] Procedures NJ REVISE AV FISTULA,W/O THROMBECTOMY NJ AV FIST REVISE GRFT,W THROMBECTOMY LEFT UPPER ARM FISTULA OUTFLOW REVISION FROM CEPHALIC VEIN TO JUGULAR VEIN WITH 10mm THIN-WALLED RINGED POLYTETRAFLUEROETHYLINE [address] [place] [address] Referral ID Status Reason Start Date Expiration Date Visits Re quested Visits Authorized [id number] 1 1 Encounter Details Date Type Department Care Team (Latest Contact Info) Description 03/31/2022 10:54 AM FLATWORK FINISHER HAND - 04/01/2022 8:19 AM FLATWORK FINISHER HAND Hospital Encounter [facility] [address] [place] [place] [address] Genaro Palacios MD [address] [place] [address] Neoplasm of unspecified behavior of bone, soft tissue, and skin Discharge Disposition: Home or Self Care Social [...] Coronavirus/COVID-19? No / Unsure 03/31/2022 10:53 AM FLATWORK FINISHER HAND documented as of this encounter Last Filed Vital Signs Vital Sign Reading Time Taken Comments Blood Pressure 156/76 04/01/2022 7:28 AM FLATWORK FINISHER HAND Pulse 86 04/01/2022 7:28 AM FLATWORK FINISHER HAND Temperature 36.6 ??C (97.8 ??F) 04/01/2022 7:28 AM CS T Respiratory Rate 18 04/01/2022 3:45 AM FLATWORK FINISHER HAND Oxygen Saturation 95% 04/01/2022 7:28 AM FLATWORK FINISHER HAND Inhaled Oxygen Concentration - - Weight 82.1 kg (181 lb) 03/31/2022 1:02 PM FLATWORK FINISHER HAND Height 180.3 cm (5' 11) 03/31/2022 1:02 PM FLATWORK FINISHER HAND Body Mass Index 25.24 03/31/2022 1:02 PM FLATWORK FINISHER HAND documented in this encounter Discharge Summaries * [...] in stable condition. DISCHARGE INSTRUCTIONS: Copy from [facility] FOLLOW UP APPOINTMENTS: Copy from [facility]S DISCHARGE [...] blood loss during surgery). Genaro Palacios MD WORK FINISHER HAND documented in this encounter Medications at Time [...] than 24 hours post op, pt declined, aware. WORK FINISHER HAND * Genaro Palacios MD - 04/01/2022 7:42 [...] looking at outflow revision in 3 months. Genaor Palacios MD WORK FINISHER HAND * Shaggy Humphrey - 03/30/2022 10:55 AM CST ECCLESIASTICAL WORKER medications updated by Medication Scribe prior to [...] Medication Sig Last Dose Taking? Auth Provider Ag Service Manager End Date amLODIPine (NORVASC) 10 MG tablet [...] MD Medication history completed by: Dat Humphrey [facility] Medication [facility] WORK FINISHER HAND documented in this encounter H&P Notes * Jad Pizano MD - 03/31/2022 12:29 PM CST I have reviewed the surgical (or preoperative) H&P that is linked to this encounter, and examined the patient. There are no significant changes WORK FINISHER HAND Source Note - Outside, Provider - 03/31/2022 7:20 AM FLATWORK FINISHER HAND documented in this encounter Miscellaneous Notes * Plan of Care - Candice Coughlin RN - 04/01/2022 5:20 AM CST Goal Outcome Evaluation: Plan of Care Reviewed With: patient Overall Patient Progress: no changeOverall Patient Progress: no change Shift: [id number] POD 1 from a fistula revision from cephalic to jugular vein. A&O x4. CMS WDL. VSS. Incisions PIERO, +2-3 edema in LUE. Up ad corey, independently. Tolerated clear liquids overnight. C/o moderate to severe pain, decreased with IV dilaudid. Pt states oxycodone does not really help his pain, RN encouraged multimodal pain management. Plan is to discharge home today pending pain control. WORK FINISHER HAND * Plan of Care - Arcelia Perez RN - 03/31/2022 9:19 PM CST Goal Outcome Evaluation: 03/31/22 [id number] Pt A&Ox4. BP elevated, other VSS, O2 100% RA. Tolerating Regular diet. S/p Lt arm fistula revision, positive bruit/thrill. LUE +2-3 edema, elevated on pillows. Up independently, steady, calls appropriately. LUE pain managed with oxycodone and IV dilaudid. PIV Rt hand saline locked. RN will continue to monitor. WORK FINISHER HAND * Brief Op Note - Casa Collier MD - 03/31/2022 4:29 PM CST [facility] Brief Operative Note Pre-operative diagnosis: AVF (arteriovenous [...] Implant Name Type Inv. Item Serial No. Laborer General Lot No. LRB No. Used Action GORE-JULIOCESAR VASCULAR GRAFT Graft [id number] [employer] Left 1 Implanted WORK FINISHER HAND * Op Note - Genaro Palacios MD [...] thin-walled ringed Propaten PTFE bypass graft. SURGEON: Genaro Palacios MD ROTATING FIELD ASSEMBLER: Casa Collier MD (Vascular Fellow). ANESTHESIA: General. [...] Palacios MD MT: [id number] Name: BECKY GALLOWAY Account: [id number] : 1960 Procedure Date: 03/31/2022 Document: [id number] cc: Genaro Palacios MD WORK FINISHER HAND documented in this encounter Plan of Treatment Upcoming Encounters Date Type Department Care Team (Late st Contact Info) Description 04/01/2023 1:15 PM FLATWORK FINISHER HAND Office Visit [address] [address] Yolanda Wilkerson PA-C [address] [place] [phone] 07/13/2023 8:00 AM CDT Virtual Visit [facility] [address] [place] [phone] Deuce Majano PA-C [address] [place] [phone] documented as of this encounter Procedures Procedure Name Priority Date/Time Associated Diagnosis Comments GLUCOSE BY METER Routine 04/01/2022 6:31 AM FLATWORK FINISHER HAND PLATELET COUNT Routine 03/31/2022 10:57 PM FLATWORK FINISHER HAND TYPE AND SCREEN, ADULT STAT 03/31/2022 1:50 PM FLATWORK FINISHER HAND ABO/RH TYPE AND SCREEN STAT 03/31/2022 1:50 PM FLATWORK FINISHER HAND REVISION, ARTERIOVENOUS FISTULA, UPPER EXTREMITY 03/31/2022 1:34 PM FLATWORK FINISHER HAND AVF (arteriovenous fistula) (H) Occlusion of left subclavian vein (H) Special Needs Pt is driving himself here, staying overnight, and expecting to drive self home the day after.He was told this would be okay. HEMOGLOBIN STAT 03/31/2022 12:41 PM FLATWORK FINISHER HAND BASIC METABOLIC PANEL STAT 03/31/2022 12:41 PM FLATWORK FINISHER HAND EKG 12-LEAD, TRACING ONLY STAT 03/31/2022 12:32 PM FLATWORK FINISHER HAND documented in this encounter Results * (ABNORMAL) Glucose by meter (04/01/2022 6:31 AM FLATWORK FINISHER HAND) [facility] Signature GLUCOSE BY METER POCT 108(H) 70 - 99 mg/dL 04/01/2022 6:38 AM FLATWORK FINISHER HAND LABORATORY POC Comment:Dr/RN Notified Blood, Capillary BLOOD SPECIMEN / Unknown 04/01/2022 6:31 AM FLATWORK FINISHER HAND 04/01/2022 6:38 AM FLATWORK FINISHER HAND [facility] [address] floor, [address] [place] [address], [facility] [phone] * (ABNORMAL) Platelet count (03/31/2022 10:57 PM FLATWORK FINISHER HAND) Platelet Count 134(L) 150 - 450 10e3/uL 03/31/2022 11:21 PM FLATWORK FINISHER HAND LABORATORY Blood STRUCTURE OF RIGHT UPPER LIMB / Unknown Venipuncture / Unknown 03/31/2022 10:57 PM FLATWORK FINISHER HAND 03/31/2022 11:16 PM FLATWORK FINISHER HAND Genaro Palacios MD LAB - BLOOD ORD ERABLES LABORATORY [facility] [address] floor, [address] [place] [address], [facility] [phone] * Adult Type and Screen (03/31/2022 1:50 PM FLATWORK FINISHER HAND) Pathologist [facility] ABO/RH(D) A POS 03/31/2022 1:25 PM FLATWORK FINISHER HAND BLOOD BANK Antibody Screen Negative Negative 03/31/2022 1:25 PM FLATWORK FINISHER HAND BLOOD BANK SPECIMEN EXPIRATION DATE [id number] 03/31/2022 1:25 PM FLATWORK FINISHER HAND BLOOD BANK Blood BLOOD SPECIMEN / Unknown Venipuncture / Unknown 03/31/2022 1:50 PM FLATWORK FINISHER HAND 03/31/2022 2:14 PM FLATWORK FINISHER HAND Jad Pizano MD LAB - BLOOD BANK LEEROY T ORDER BLOOD BANK [address] [place] [address], [facility] * (ABNORMAL) Hemoglobin (03/31/2022 12:41 PM FLATWORK FINISHER HAND) Pathologist [facility] Hemoglobin 7.8(L) 13.3 - 17.7 g/dL 03/31/2022 12:56 PM FLATWORK FINISHER HAND LABORATORY Blood STRUCTURE OF RIGHT UPPER LIMB / Unknown Venipuncture / Unknown 03/31/2022 12:41 PM FLATWORK FINISHER HAND 03/31/2022 12:52 PM FLATWORK FINISHER HAND Brett Kendall MD LAB - BLOOD ORDERAB LES LABORATORY [facility] [address], [address] [place] [address], [facility] [phone] * (ABNORMAL) Basic metabolic panel (03/31/2022 12:41 PM FLATWORK FINISHER HAND) [facility] Signature Sodium 140 136 - 145 mmol/L 03/31/2022 1:20 PM [facility] Potassium 4.8 3.4 - 5.3 mmol/L 03/31/2022 1:20 PM [facility] Chloride 96(L) 98 - 107 mmol/L 03/31/2022 1:20 PM [facility] Carbon Dioxide (CO2) 31(H) 22 - 29 mmol/L 03/31/2022 1:20 PM [facility] Anion Gap 13 7 - 15 mmol/L 03/31/2022 1:20 PM [facility] Urea Nitrogen 26.2(H) 8.0 - 23.0 mg/dL 03/31/2022 1:20 PM [facility] Creatinine 7.63(H) 0.67 - 1.17 mg/dL 03/31/2022 1:20 PM [facility] Calcium 9.8 8.8 - 10.2 mg/dL 03/31/2022 1:20 PM [facility] Glucose 76 70 - 99 mg/dL 03/31/2022 1:20 PM [facility] GFR Estimate 7(L) >60 mL/min/1.7 3m2 03/31/2022 1:20 PM [facility] Comment:eGFR calculated usin 2020 CKD-EPI equation. Blood STRUCTURE OF RIGHT UPPER LIMB / Unknown Venipuncture / Unknown 03/31/2022 12:41 PM FLATWORK FINISHER HAND 03/31/2022 12:52 PM FLATWORK FINISHER HAND Genaro Palacios MD LAB - BLOOD ORD ERABLES LABORATORY [facility] [address] 1[address] floor, [address] [place] [address], [facility] [phone] * EKG 12-lead, tracing only (03/31/2022 12:32 PM FLATWORK FINISHER HAND) Systolic Blood Pressure mmHg RADIOLOGY RESULTS Diastolic Blood Pressure mmHg RADIOLOGY RESULTS Ventricular Rate 82 BPM RAD IOLOGY RESULTS Atrial Rate 82 BPM RADIOLOG Y RESULTS [place] Interval 144 ms RADIOLOG Y RESULTS QRS Duration 126 ms RADIOLO GY RESULTS QT 418 ms RADIOLOGY RESULTS QTc 488 ms RADIOLOGY RESULTS P [place] 70 degrees RADIOLOGY RESULTS R AXIS -50 degrees RADIOLOGY RESULTS T [place] 55 degrees RADIOLOGY RESULTS Interpretation ECG Sinus rhythm Right bundle branch block Left anterior fascicular block Bifascicular block Voltage criteria for left ventricular hypertrophy Cannot rule out Septal infarct , age undetermined Abnormal ECG When compared with ECG of 04-MAY-2021 09:32, Right bundle branch block is now Present Minimal criteria for Septal infarct are now Present Confirmed by MD EWA, DEMOS ([id number]), acquisitions editor Claudia Perez ([id number]) on 04/02/2022 12:24:30 PM RADIOLOGY RESULTS 03/31/2022 12:3 2 PM FLATWORK FINISHER HAND 04/02/2022 12:24 PM FLATWORK FINISHER HAND Genaro Palacios MD ECG ORDERABLES RADIOLOGY RESULTS documented in this encounter Visit Diagnoses Diagnosis Status post repair of arteriovenous fistula- Primary Neoplasm of unspecified behavior of bone, soft tissue, and skin documented in this encounter Admitting Diagnoses Diagnosis [...] exceed 4 grams/day. $Given 04/01/2022 6:48 AM FLATWORK FINISHER HAND 975 mg amLODIPine (NORVASC) tablet 10 mg 10 mg, Oral, DAILY, First dose on Wed04/01/22 at 0800 $Given 04/01/2022 7:44 AM FLATWORK FINISHER HAND 10 mg aspirin EC tablet 81 mg 81 mg, Oral, DAILY, First dose on Wed03/31/22 at 1999, DO NOT CRUSH. $Given 04/01/2022 7:44 AM FLATWORK FINISHER HAND 81 mg $Given 03/31/2022 8:16 PM FLATWORK FINISHER HAND 81 mg calcitRIOL (ROCALTROL) capsule 1.5 mcg 1.5 mcg, Oral, DAILY, First dose on Wed04/01/22 at 0800 $Given 04/01/2022 7:43 AM FLATWORK FINISHER HAND 1.5 mcg calcium acetate (PHOSLO) capsule 2,668 mg 2,668 mg, Oral, 3 TIMES DAILY, First dose on Wed03/31/22 at 1999, Best if given with meals. $Given 04/01/2022 7:44 AM FLATWORK FINISHER HAND 2,668 mg $Given 03/31/2022 8:15 PM FLATWORK FINISHER HAND 2,668 mg carvedilol (COREG) tablet 12.5 mg 12.5 mg, Oral, 2 TIMES DAILY, First dose on Wed03/31/22 at 1999 $Given 04/01/2022 7:44 AM FLATWORK FINISHER HAND 12.5 mg $Given 03/31/2022 8:15 PM FLATWORK FINISHER HAND 12.5 mg fentaNYL (PF) (SUBLIMAZE) injection Intravenous, PRN, Administer over 3-5 Minutes, Starting on Wed03/31/22 at 1400, Anesthesia Intra-op $Given 03/31/2022 4:47 PM FLATWORK FINISHER HAND 50 mcg $Given 03/31/2022 4:37 PM FLATWORK FINISHER HAND 50 mcg $Given 03/31/2022 3:36 PM FLATWORK FINISHER HAND 50 mcg folic acid (FOLVITE) tablet 1 mg 1 mg, Oral, EVERY MORNING, First dose on Wed04/01/22 at 0800 $Given 04/01/2022 7:43 AM FLATWORK FINISHER HAND 1 mg heparin ANTICOAGULANT injection 5,000 Units 5,000 Units, [...] or cath care. $Given 04/01/2022 6:49 AM FLATWORK FINISHER HAND 5,000 Units HYDROmorphone (DILAUDID) injection 0.2 mg [...] injection 0.4 mg 0.4 mg, Intravenous, EVERY 5 MIN PRN, severe pain, Starting on Wed03/31/22 at 1651, Use FentaNYL (SUBLIMAZE) first if ordered. Administer HYDROmorphone (DILAUDID) up to a total of 2 mg for moderate or severe pain. Notify Provider to assess for uncontrolled pain or analgesic side effects., PACU $Given 03/31/2022 5:02 PM FLATWORK FINISHER HAND 0.4 mg HYDROmorphone (DILAUDID) injection 0.4 mg 0.4 mg, Intravenous, EVERY 2 HOURS PRN, severe pain, Starting on Wed03/31/22 at 1804, IF patient unable to take oral pain medication or pain not controlled with oral analgesics. Hold IV PRN opioid dose for analgesic side effects. Notify provider to assess for uncontrolled pain or analgesic side effects. $Given 04/01/2022 3:26 AM FLATWORK FINISHER HAND 0.4 mg $Given 04/01/2022 12:47 AM FLATWORK FINISHER HAND 0.4 mg $Given 03/31/2022 10:16 PM FLATWORK FINISHER HAND 0.4 mg multivitamin RENAL (NEPHROCAPS/TRIPHROCAPS) capsule 1 capsule 1 capsule, Oral, EVERY MORNING, First dose on Wed04/01/22 at 0800 $Given 04/01/2022 7:43 AM FLATWORK FINISHER HAND 1 capsule naloxone (NARCAN) injection 0.2 mg [...] Wed04/01/22 at 0730 $Given 04/01/2022 6:48 AM FLATWORK FINISHER HAND 20 mg ondansetron (ZOFRAN ODT) ODT tab [...] over 2-5 Minutes, Starting on Wed03/31/22 at 2000, This is [...] analgesic side effects. Hold while on IV SEARCH ENGINE OPTIMIZATION CONSULTANT or with regular IV opioid dosing. $Given 04/01/2022 2:07 AM FLATWORK FINISHER HAND 10 mg oxyCODONE (ROXICODONE) tablet 5 mg 5 mg, Oral, EVERY 4 HOURS PRN, moderate pain, Starting on Wed03/31/22 at 1804, Hold oral PRN dose for analgesic side effects. Notify provider to assess for uncontrolled pain or analgesic side effects. Hold while on IV SEARCH ENGINE OPTIMIZATION CONSULTANT or with regular IV opioid dosing. $Given 03/31/2022 6:42 PM FLATWORK FINISHER HAND 5 mg simvastatin (ZOCOR) tablet 20 mg 20 mg, Oral, EVERY MORNING, First dose on Wed04/01/22 at 0800 $Given 04/01/2022 7:44 AM FLATWORK FINISHER HAND 20 mg sodium chloride (PF) 0.9% PF flush 3 mL 3 mL, Intracatheter, EVERY 8 HOURS, First dose on Wed03/31/22 at 1830, to lock peripheral IV dormant line $Given 03/31/2022 6:44 PM FLATWORK FINISHER HAND 3 mLs sodium chloride (PF) 0.9% PF flush 3 mL 3 mL, Intracatheter, EVERY 1 MIN PRN, line flush, other, to ensure patency or to lock dormant line, Starting on Wed03/31/22 at 1804 $Given 04/01/2022 3:26 AM FLATWORK FINISHER HAND 3 mLs sodium chloride 0.9% infusion at 10 mL/hr, Intravenous, CONTINUOUS, IF patient on dialysis., Pre-procedure, Starting on Wed03/31/22 at 1230, Until Wed03/31/22 at 1626 $New Bag 03/31/2022 1:54 PM FLATWORK FINISHER HAND $New Bag 03/31/2022 12:55 PM FLATWORK FINISHER HAND 10 mL/hr documented in this encounter Active and Recently Administered Medications Times are shown in FLATWORK FINISHER HAND. Scheduled Medication Order 03/30/2022 03/31/2022 04/01/2022 - [...] 75 mg/kg/day not to exceed 4 grams/day. 3 (Not Given - Provider: Arcelia Perez RN [...] RN) 0744 ($Given - Provider: Matilda Joya RN) carvedilol (COREG) tablet 12.5 mg 12.5 mg, Oral, 2 TIMES DAILY, First dose on Wed03/31/22 at 2000 2015 ($Given - Provider: Arcelia Perez RN) 0744 ($Given - Provider: Matilda Joya RN) ceFAZolin Sodium (ANCEF) injection 2 g (COMPLETED) Routine, 2 g, Intravenous, PRE-OP/PRE-PROCEDURE, Starting on Wed03/31/22 at 1230, For 1 dose, Give first dose within 1 hour PRIOR to incision. If patient weight is greater than or equal to 120 kg increase dose to 3 g., Indications: Perioperative Pharmacoprophylaxis, Pre-procedure 1401 ($Given - Provider: Edgardo De La Paz APRN CRNA) folic acid (FOLVITE) tablet 1 mg 1 [...] - Provider: Edgardo De La Paz APRN BUDGET AND POLICY ANALYST - Comment: Switch to gravity)1354 ($New Bag - Provider: Edgardo De La Paz APRN CRNA)1551 (Anesthesia Volume Adjustment - Provider: Janessa Stephen APRN CRNA) PRN Medication Order 03/30/2022 03/31/2022 04/01/2022 acetaminophen [...] 1601 ($Given - Provider: Genaro Palacios MD) fentaNYL (PF) (SUBLIMAZE) injection (CANCELED) Intravenous, PRN, Administer over 3-5 Minutes, Starting on Wed03/31/22 at 1400, Anesthesia Intra-op 1400 ($Given - Provider: Jad Pizano MD)1425 ($Given - Provider: Edgardo De La Paz APRN CRNA)1436 ($Given - Provider: Edgardo De La Paz APRN CRNA)1536 ($Given - Provider: Janessa Stephen APRN CRNA)1637 ($Given - Provider: Ashley Gagnon, FATOUMATA)1647 ($Given - Provider: Ashley Gagnon, FATOUMATA) heparin 2,500 units in 250 mL 0.9% [...] 46 (See Alternative - Provider: Jalen Hurd RN)032 (See Alternative - Provider: Candice Coughlin, RN) HYDROmorphone (DILAUDID) injection 0.4 mg (CANCELED) [...] effects. 2015 ($Given - Provider: Arcelia Perez RN)2215 ($Given - Provider: Arcelia Perez RN) 46 ($Given - Provider: Jalen Hurd RN)0326 ($Given - Provider: Candice Coughlin, FATOUMATA) lidocaine (LMX4) cream Topical, EVERY 1 HOUR [...] analgesic side effects. Hold while on IV SEARCH ENGINE OPTIMIZATION CONSULTANT or with regular IV opioid dosing. 1842 (See Alternative - Provider: Matilda Joya RN) 0207 ($Given - Provider: Candice Coughlin RN) oxyCODONE (ROXICODONE) tablet 5 mg(Linked Group 4) 5 mg, Oral, EVERY 4 HOURS PRN, moderate pain (4-6), Starting on Wed03/31/22 at 1804, Hold oral PRN dose for analgesic side effects. Notify provider to assess for uncontrolled pain or analgesic side effects. Hold while on IV SEARCH ENGINE OPTIMIZATION CONSULTANT or with regular IV opioid dosing. 1842 ($Given - Provider: Maitlda Joya RN) 0207 (See Alternative - Provider: [...] analgesic side effects. Hold while on IV SEARCH ENGINE OPTIMIZATION CONSULTANT or with regular IV opioid dosing. Or oxyCODONE (ROXICODONE) tablet 10 mgJump to med 10 mg, Oral, EVERY 4 HOURS PRN, severe pain (7-10), Starting on Wed03/31/22 at 1804, Hold oral PRN dose for analgesic side effects. Notify provider to assess for uncontrolled pain or analgesic side effects. Hold while on IV SEARCH ENGINE OPTIMIZATION CONSULTANT or with regular IV opioid dosing. documented in this encounter Additional Health Concerns Infection Onset Date Last Indicated Resolved Time Recovered COVID 01/16/2022 01/16/2022 04/01/2022 1 1:39 PM FLATWORK FINISHER HAND documented as of this encounter Care Teams Adult Protective Caseworker Relationship Specialty Start Date End Date Maxmiino Arredondo MD [address] [place] [address] PCP - General Family Medicine 04/02/21 Chapin Khan MD [address] [place] [phone] Urology 05/10/20 Brionna Covarrubias, FATOUMATA Registered Nurse Oncology 05/10/20 09/01/22 Driss Morales MD [address] [place] [address] [phone] Assigned Surgical Provider 11/17/20 04/10/22 Danya Barraza [facility] [address] [place] [address] [phone] Pharmacist Pharmacist Toy Department Manager 12/25/20 Romi Fairbanks MD [facility] [address] [place], [place] [phone] Assigned Gastroenterology Provider 01/05/21 06/12/22 Danya Barraza, [facility] [address] [place], [place] 8[address] Assigned MTM Pharmacist 11/12/21 06/26/22 Jeanette French, RN [address] [place] [address] Specialty Technologist Development Gastroenterology 12/30/21 Tammy Greenberg MD [address] [place] [address] [address] [place], [place] [phone] Cardiovascular Disease 02/24/22 Genaro Palacios MD [address] [place] [id number] Assigned Heart and Vascular Provider 03/28/22 documented as of this encounter
--- OUTSIDE RECORDS SUMMARY | 2023-03-14 02:41 | XMS_ITS | Encounter Summary ---
Author Name Unknown Organization [place] Address [address] [place] [address]. [place] [address] Care Team Providers Care Marble Cutter Operator Name Role Phone Chapin Khan MD Unavailable [phone] Brionna Covarrubias RN Unavailable [phone] Driss Morales MD Unavailable [phone] Danya Barraza [facility] Unavailable Romi Fairbanks MD Unavailable [phone] Maximino Arredondo MD Primary Care Provider Danya Barraza [facility] Unavailable [phone] Jeanette French RN Unavailable [phone] Tammy Greenberg MD Unavailable [phone] Genaro Palacios MD Unavailable [phone] Encounter Details Date Type Department Care Team (Latest Contact Info) Description 03/31/2022 Travel Social History Tobacco Use Types Packs/Day [...] Coronavirus/COVID-19? No / Unsure 03/31/2022 10:53 AM BILLING MACHINE OPERATOR documented as of this encounter Plan of Treatment Upcoming Encounters Date Type Department Care Team (Late st Contact Info) Description 04/01/2023 1:15 PM BILLING MACHINE OPERATOR Office Visit [address] [phone] Yolanda Wilkerson, PAMily [address] [place] [address] 07/13/2023 8:00 AM CDT Virtual Visit [facility] [address] [phone] Deuce Majano PA-C [address] [place] [address] documented as of this encounter Visit Diagnoses Not on filedocumented in this encounter Additional Health Concerns Infection Onset Date Last Indicated Resolved Time Recovered COVID 01/16/2022 01/16/2022 04/01/2022 1 1:39 PM BILLING MACHINE OPERATOR documented as of this encounter Care Teams Marble Cutter Operator Relationship Specialty Start Date End Date [place] [address] PCP - General Family Medicine 04/02/21 Chapin Khan MD [address] [place] [address] 60992 Urology 05/10/20 Brionna Covarrubias, RN Registered Nurse Oncology 05/10/20 09/01/22 Driss Morales MD [address] [place] [address] 195 [place], [place] 127095 Assigned Surgical Provider 11/17/20 04/10/22 Danya Barraza [facility] [address] [place] [address]91 Pharmacist Pharmacist Leather Sponger 12/25/20 Romi Fairbanks MD [facility] [address] [place] [address] Assigned Gastroenterology Provider 01/05/21 06/12/22 Danya Barraza [facility] [address] [place] [address]32[address] Assigned MTM Pharmacist 11/12/21 06/26/22 Jeanette French RN [address] [place] [address] Specialty Kinesiology Internship Gastroenterology 12/30/21 Tammy Greenberg MD [address] [facility] 508 [place], [place] 751435 Cardiovascular Disease 02/24/22 Genaro Palacios MD [address] [place] [address] Assigned Heart and Vascular Provider 03/28/22 documented as of this encounter
--- OUTSIDE RECORDS SUMMARY | 2023-03-14 02:41 | XMS_ITS | Encounter Summary ---
Author Name Unknown Organization [place] Address [address] [place] [address]. [place] [address] Care Team Providers Care Fabrication Manager Name Role Phone Chapin Khan MD Unavailable [phone] Brionna Covarrubias RN Unavailable [phone] Driss Morales MD Unavailable [phone] Danya Barraza [facility] Unavailable Romi Fairbanks MD Unavailable [phone] Maximino Arredondo MD Primary Care Provider Danya Barraza [facility] Unavailable [phone] Jeanette French RN Unavailable [phone] Tammy Greenberg MD Unavailable [phone] Genaro Palacios MD Unavailable [phone] Encounter Details Date Type Department Care Team (Latest Contact Info) Description 04/03/2022 Travel Social History Tobacco Use Types Packs/Day [...] Coronavirus/COVID-19? No / Unsure 04/03/2022 5:48 AM FREE LANCE ARTIST documented as of this encounter Plan of Treatment Upcoming Encounters Date Type Department Care Team (Late st Contact Info) Description 04/01/2023 1:15 PM FREE LANCE ARTIST Office Visit [address] [phone] Yolanda Wilkerson, PAAnhC [address] [place] [address] 07/13/2023 8:00 AM CDT Virtual Visit [facility] [address] [phone] Deuce Majano PA-C [address] [place] [address] 033975 documented as of this encounter Visit Diagnoses Not on filedocumented in this encounter Care Teams Fabrication Manager Relationship Specialty Start Date End Date Maximino Arredondo MD [address] [place] [address] PCP - General Family Medicine 04/02/21 Chapin Khan MD [address] [place] [address] Urology 05/10/20 Brionna Covarrubias, RN Registered Nurse Oncology 05/10/20 09/01/22 Driss Morales MD [address] [facility] 195 [place] [address] Assigned Surgical Provider 11/17/20 04/10/22 Danya Barraza [facility] [address] [place] [address] Pharmacist Pharmacist Medical Practitioners 12/25/20 Romi Fairbanks MD [facility] [address] [place] [address] Assigned Gastroenterology Provider 01/05/21 06/12/22 [facility] [address] [place] [address] Assigned MTM Pharmacist 11/12/21 06/26/22 Jeanette French, FATOUMATA [address] [place], [place] 5[address] Specialty Hydrologist Gastroenterology 12/30/21 Tammy Greenberg MD 420 [facility] 508 [place] [address] Cardiovascular Disease 02/24/22 Genaro Palacios MD [address] [address] Assigned Heart and Vascular Provider 03/28/22 documented as of this encounter
--- OUTSIDE RECORDS SUMMARY | 2023-03-14 02:41 | XMS_ITS | Encounter Summary ---
Author Name Unknown Organization [place] Address [address] [place] [address] Care Team Providers Care Arc And Gas Welder Name Role Phone Chapin Khan MD Unavailable [phone] Brionna Covarrubias RN Unavailable [phone] Driss Morales MD Unavailable [phone] Danya Barraza [facility] Unavailable [phone] Romi Fairbanks MD Unavailable [phone] Maximino Arredondo MD Primary Care Provider [phone] Danya Barraza [facility] Unavailable [phone] Jeanette French RN Unavailable [phone] Tammy Greenberg MD Unavailable [phone] Genaro Palacios MD Unavailable [phone] Claude Rucker MD Unavailable [phone] Delroy Gore APRN SADDLE STITCHER Unavailable [phone] Chapin Ruvalcaba MD Unavailable [phone] Romi Fairbanks MD Unavailable [phone] Danya Barraza [facility] Unavailable [phone] Deuce Majano PA-C Unavailable [phone] Chapin Ruvalcaba MD Unavailable Reason for Visit * Reason Onset Date Comments Refill Request 04/04/2022 Encounter Details Date Type Department Care Team (Late Contact Info) Description 04/04/2022 MyC Refill [facility] [place] [address] [place] [address] Kamala Quinonez, EMERGENCY VEHICLE TECHNICIAN [address] [place] [address] Refill Request Social History Tobacco Use [...] Coronavirus/COVID-19? No / Unsure 04/03/2022 5:48 AM ACID TREATER documented as of this encounter Plan of Treatment Upcoming Encounters Date Type Department Care Team (Late Contact Info) Description 04/01/2023 1:15 PM ACID TREATER Office Visit M [address] [phone] Yolanda Wilkerson, PA-C [address] [place] [address] 07/13/2023 8:00 AM CDT Virtual Visit [facility] [address] [place] [phone] Deuce Majano PA-C [address] [place] [address] [id number] documented as of this encounter Visit Diagnoses Diagnosis AVF (arteriovenous fistula) (H24) Arteriovenous fistula, acquired documented in this encounter Additional Health Concerns Infection Onset Date Last Indicated Resolved Time Rule Out C-difficile 03/10/2023 03/10/2023 024 5:57 PM ACID TREATER documented as of this encounter Care Teams Arc And Gas Welder Relationship Specialty Start Date End Date Maximino Arredondo MD [address] [place] [address] PCP - General Family Medicine 04/02/21 Chapin Khan MD [address] [place] [address] 730365 Urology 05/10/20 Brionna Covarrubias, FATOUMATA Registered Nurse Oncology 05/10/20 09/01/22 Driss [place] MD [address] [place] [address] [phone] Assigned Surgical Provider 11/17/20 04/10/22 Danya Barraza, [facility] [address] [place] [address] Pharmacist Pharmacist Director Volunteer Services 12/25/20 Romi Fairbanks MD [address] [phone] Assigned Gastroenterology Provider 01/05/21 06/12/22 Danya Barraza [facility] [address] [place] [address] 347855 Assigned [facility] Pharmacist 11/12/21 06/26/22 Jeanette French, FATOUMATA [address] [place] [address] 831105 Specialty Associate Professor Of Church Music Gastroenterology 12/30/21 Tammy Greenberg MD [address] [place] [address] 508 [place] [address] Cardiovascular Disease 02/24/22 Genaro Palacios MD [address] [phone] Assigned Heart and Vascular Provider 03/28/22 Claude Rucker MD [address] [place] [address] 593445 Assigned Surgical Provider 04/11/22 Delroy Gore, PROGRESSIVE ASSEMBLER AND FITTER SADDLE STITCHER [address] [place] [address] 373575 Assigned Nephrology Provider 04/25/22 Chapin Ruvalcaba MD 6 [facility] [address] [place], [place] 966565 Assigned Gastroenterology Provider 06/13/22 06/19/22 Romi Fairbanks MD [address] 656125 Assigned Gastroenterology Provider 06/20/22 08/14/22 Danya Barraza [facility] 9 [place] [address] Assigned [facility] Pharmacist 12/05/22 eDuce Majano PA-C 9 [place] [address] Assigned Gastroenterology Provider 01/23/23 02/05/23 Chapin Ruvalcaba MD [address] [phone] Assigned Gastroenterology Provider 02/06/23 documented as of this encounter
--- OUTSIDE RECORDS SUMMARY | 2023-03-14 02:41 | XMS_ITS | Encounter Summary ---
Author Name Unknown Organization [place] Address [address] [place] [address]. [place] [address] Care Team Providers Care Online Project Manager Name Role Phone Chapin Khan MD Unavailable [phone] Brionna Covarrubias RN Unavailable [phone] Driss Morales MD Unavailable [phone] Danya Barraza [facility] Unavailable Romi Fairbanks MD Unavailable [phone] Maximino Arredondo MD Primary Care Provider Danya Barraza [facility] Unavailable Jeanette French RN Unavailable [phone] Tammy Greenberg MD Unavailable [phone] Genaro Palacios MD Unavailable Reason for Visit * Reason Comments Skin Check Brownish spot on lef t shoulder and lower back Encounter Details Date Type Department Care Team (Late st Contact Info) Description 04/03/2022 11:45 AM REAL ESTATE OPERATIONS MANAGER Office Visit [address] [phone] Claude Rucker MD [address] [place] [address] [phone] SK (seborrheic keratosis) (Primary Dx); Xerosis cutis; Itching; Prurigo nodularis Social History Tobacco Use Types Packs/Day Years [...] Coronavirus/COVID-19? No / Unsure 04/03/2022 5:48 AM REAL ESTATE OPERATIONS MANAGER documented as of this encounter Patient Instructions * Patient Instructions* Claude Rucker MD - 04/03/2022 11:45 AM REAL ESTATE OPERATIONS MANAGER Recommendations for dry skin and dermatitis 1. Bathe or shower daily in lukewarm water 2. Use a gentle non-soap detergent cleanser - Soaps are alkaline (which can irritate sensitive skin) and remove natural moisturizing factors - Recommended products, in no particular order, include: - Bars: - Aveeno Moisturizing Bar - Cetaphil Gentle Cleansing Bar - Dove Sensitive Skin Unscented Beauty Bar - Olay Ultra Moisture Bar - Liquid Cleansers: - Aquanil Cleanser - CeraVe Hydrating Cleanser - Cetaphil Gentle Skin Cleanser - Avoid scented soaps or bath additives unless your doctor tells you otherwise - Focus on washing the face, underarms, and underwear areas; other sites usually do not need frequent washing 3. Rinse off thoroughly, then pat dry until skin is slightly damp 4. Apply moisturizer to damp skin within 3-5 minutes of exiting the bath/shower - Recommended products, in no particular order, include: - Lotions (thinner/scrap iron loader, but may be less effective) - AmLactin Cerapeutic Restoring Body Lotion - CeraVe Facial Moisturizing Lotion (AM and/or PM) - Lubriderm Advanced Therapy Lotion - Creams (thicker, likely the best balance of effectiveness and feel) - AmLactin Ultra Hydrating Body Cream - Aveeno Eczema Therapy Moisturizing Cream - Aveeno Eczema Therapy Itch Relief [place] - CeraVe Itch Relief Moisturizing Cream - Ointments (thickest) - Vaseline 5. If prescribed a topical steroid medication, this may be applied before or after the moisturizer (whichever order you prefer) 6. Reapply moisturizer one or two additional times throughout the day when dry skin is present; once this improves, reduce to daily or every other day as needed to prevent recurrence 7. If dry skin or dermatitis is present on the hands, keep moisturizer near the sink and apply after washing and drying your hands 8. A humidifier may be helpful during the winter months (when ambient humidity is very low) ESTATE OPERATIONS MANAGER documented in this encounter Progress Notes * Claude Rucker MD - 04/03/2022 11:45 AM CST [facility] Dermatology [facility] Note - EP Encounter Date: Apr 03, 2022 Dermatology Problem List: #. Transplant candidate (renal) - on dialysis Assessment & Plan: #. Lesions of concern: L shoulder, L lower back, crown of scalp - all seborrheic keratoses - reassurance provided #. Benign melanocytic nevi of the trunk #. Seborrheic keratoses - reassurance provided; no lesions concerning for malignancy - photoprotection (regular use of SPF30+ broad spectrum sunscreen and sun protective clothing) recommended - ABCDE of melanoma discussed #. Xerosis cutis - dry skin care techniques discussed, see AVS #. 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 Moisés Whelan is a(n) extremely pleasant 62 year old male who presents today as a new patient for FBSE given transplant history. Notes lesions of concern on L shoulder, L lower back, crown of scalp. The patient denies any painful, bleeding, or nonhealing lesions, or any new or changing moles. Does note dry skin and has been rubbing and picking enough that small nodules have started to form.Up for using a medication to help. Patient is otherwise feeling well, without additional skin concerns. Labs Reviewed: N/A Physical Exam: Vitals: There were no vitals taken for this visit. SKIN: Total skin excluding the undergarment areas was performed. The exam included the head/face, neck, both arms, chest, back, abdomen, both legs, digits and/or nails. - Extensive xerosis with scattered violaceous firm nodules at sites of picking - Recent surgical scars and extensive associated ecchymoses, L neck and chest - Lesions of concern: L shoulder, L lower back, crown of scalp - waxy verrucoid papules - Multiple regular brown pigmented macules and papules are identified on the trunk and extremities. - There are waxy stuck on aguirre to brown papules on the trunk and extremities. - No other lesions of concern on areas examined. Medications: Current Outpatient Medications Medication ??? amLODIPine (NORVASC) 10 MG tablet ??? calcitRIOL (ROCALTROL) 0.5 MCG capsule ??? calcium acetate (CALPHRON) 667 MG TABS tablet ??? carvedilol (COREG) 12.5 MG tablet ??? clobetasol (TEMOVATE) 0.05 % external ointment ??? folic acid (FOLVITE) 1 MG tablet ??? lidocaine-prilocaine (EMLA) 2.5-2.5 % external cream ??? multivitamin RENAL (MULTIVITAMIN RENAL) 1 MG capsule ??? omeprazole (PRILOSEC) [address] capsule ??? oxyCODONE (OXYCONTIN) 10 MG 12 hr tablet ??? simvastatin (ZOCOR) 20 MG tablet ??? ustekinumab (STELARA) 90 MG/ML Current Facility-Administered Medications Medication ??? lidocaine 1% with EPINEPHrine 1:100,000 injection 3 mL Past Medical History: Patient Active Problem List Diagnosis ??? Acquired cyst of kidney ??? ESRD (end stage renal disease) (H) ??? Organ transplant candidate ??? NSTEMI (non-ST elevated myocardial infarction) (H) ??? Atrial fibrillation (H) ??? Benign essential hypertension ??? Crohn's disease of large intestine (H) ??? IPMN (intraductal papillary mucinous neoplasm) ??? Status post repair of arteriovenous fistula Past Medical History: Diagnosis Date ??? Aortic [...] ??? NSTEMI (non-ST elevated myocardial infarction) (H) CC No referring provider defined for this encounter. on close of this encounter. This note has been created using voice recognition software; while it has been reviewed, some errors may persist. ESTATE OPERATIONS MANAGER documented in this encounter Plan of Treatment Upcoming Encounters Date Type Department Care Team (Late st Contact Info) Description 04/01/2023 1:15 PM REAL ESTATE OPERATIONS MANAGER Office Visit [facility] [address] [place] [phone] Yolanda Wlikerson PA-C [address] [place] [address] 488755 07/13/2023 8:00 AM CDT Virtual Visit [facility] [address] 4th [place] [phone] Deuce Majano PA-C [address] [place] [address] documented as of this encounter Visit Diagnoses Diagnosis SK (seborrheic keratosis)- Primary Other seborrheic keratosis Xerosis cutis Other specified disease of sebaceous glands Itching Unspecified pruritic disorder 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 documented in this encounter Care Teams Online Project Manager Relationship Specialty Start Date End Date Maximino Arredondo MD [address] [place] [phone] PCP - General Family Medicine 04/02/21 Chapin Khan MD [address] [place] [address] [phone] Urology 05/10/20 Brionna Covarrubias, RN Registered Nurse Oncology 05/10/20 09/01/22 Driss Morales MD [address] [place] [address] [phone] Assigned Surgical Provider 11/17/20 04/10/22 Danya Barraza, [facility] [address] [place] [address] Pharmacist Pharmacist Pressing Machine Tender 12/25/20 Romi Fairbanks MD [facility] [address] [place] [address] Assigned Gastroenterology Provider 01/05/21 06/12/22 Danya Barraza [facility] [address] [place] [address] Assigned MTM Pharmacist 11/12/21 06/26/22 Jeanette French, FATOUMATA [address] [place] [address] Specialty Urban Sociologist Gastroenterology 12/30/21 Tammy Greenberg MD [address] [place] [address] 508 [place], [place] 751355 Cardiovascular Disease 02/24/22 Genaro Palacios MD [address] [place] 5[address]65 Assigned Heart and Vascular Provider 03/28/22 documented as of this encounter
--- OUTSIDE RECORDS SUMMARY | 2023-03-14 02:42 | XMS_ITS | Encounter Summary ---
Author Name Unknown Organization [facility] Address [address] [place] [address] Care Team Providers Care Community Support Associate Name Role Phone Chapin Khan MD Unavailable [phone] Brionna Covarrubias RN Unavailable [phone] Driss Morales MD Unavailable [phone] Danya Barraza [facility] Unavailable +1- Romi Fairbanks MD Unavailable [phone] Maximino Arredondo MD Primary Care Provider [phone] Carmen Chapman APRN BINDER TECHNICIAN Unavailable + Danya Barraza [facility] Unavailable [phone] Jeanette French RN Unavailable [phone] Tammy Greenberg MD Unavailable [phone] Genaro Palacios MD Unavailable [phone] Claude Rucker MD Unavailable +[phone] Delroy Gore APRN BINDER TECHNICIAN Unavailable +1- Chapin Ruvalcaba MD Unavailable [phone] Romi Fairbanks MD Unavailable +[phone] Danya Barraza [facility] Unavailable +1- Deuce Majano PA-C Unavailable +[phone] Chapin Ruvalcaba MD Unavailable +[phone] Encounter Details Date Type Department Care Team (Late Contact Info) Description 02/24/2022 MyC Medical Advice [facility] Interventional Radiology [address] [place] [address] Carolina Faulkner, FATOUMATA Social History Tobacco Use Types Packs/Day Years [...] PHQ-2 Answer Date Recorded PHQ-2 Score 0 01/07/2022 Sex and Gender Information Value Date Recorded Sex Assigned at Male 05/02/2020 10:54 AM CDT Gender Identity Male 05/02/2020 10:54 AM CDT Sexual Orientation Straight 05/02/2020 10 :54 AM CDT COVID-19 Exposure Response Date Recorded In the last 10 days, have yo u been in contact with someone who was confirmed or suspected to have Coronavirus/COVID-19? No / Unsure 02/27/2022 11:43 AM GLASS TUBE BENDER documented as of this encounter Plan of Treatment Upcoming Encounters Date Type Department Care Team (Late Contact Info) Description 04/01/2023 1:15 PM GLASS TUBE BENDER Office Visit [address] [address] Yolanda Wilkerson PA-C [address] [place] [address] 07/13/2023 8:00 AM CDT Virtual Visit [facility]ology [facility] [address] 4th [place] [phone] Deuce Majano PA-C [address] [place] [address] 211455 documented as of this encounter Visit Diagnoses Not on filedocumented in this encounter Additional Health Concerns Infection Onset Date Last Indicated Resolved Time Recovered COVID 01/16/2022 01/16/2022 04/01/2022 1 1:39 PM GLASS TUBE BENDER Rule Out C-difficile 03/10/2023 03/10/2023 024 5:57 PM GLASS TUBE BENDER documented as of this encounter Care Teams Community Support Associate Relationship Specialty Start Date End Date Maximino Arredondo MD [address] [place] [address] PCP - General Family Medicine 04/02/21 Chapin Khan MD [address] [place] [address] 137455 Urology 05/10/20 Brionna Covarrubias, RN Registered Nurse Oncology 05/10/20 09/01/22 Driss Morales MD [address] [place] [address] [phone] Assigned Surgical Provider 11/17/20 04/10/22 Danya Barraza, [facility] [address] [place] [address] Pharmacist Pharmacist Home Service Director 12/25/20 Romi Fairbanks MD [address] 280385 Assigned Gastroenterology Provider 01/05/21 06/12/22 Carmen Chapman APRN BINDER TECHNICIAN [address] [place] [address] Assigned PCP 04/27/21 03/27/22 Danya Barraza [facility] [address] [place], [place] 922335 Assigned MTM Pharmacist 11/12/21 06/26/22 Jeanette French RN [address] [place], [place] 464315 Specialty Head Operator Sulfide Gastroenterology 12/30/21 Tammy Greenberg MD 420 [facility] [address] [place], [place] 215135 Cardiovascular Disease 02/24/22 Genaro Palacios MD [address] [facility] [address] [place], [place] 935145 Assigned Heart and Vascular Provider 03/28/22 Claude Rucker MD [address] [place] [address] 772885 Assigned Surgical Provider 04/11/22 Delroy Gore APRN BINDER TECHNICIAN [address] [place] [address] 686605 Assigned Nephrology Provider 04/25/22 Chapin Ruvalcaba MD [address] [facility] [address] [place], [place] 283615 Assigned Gastroenterology Provider 06/13/22 06/19/22 Romi Fairbanks MD [facility] [address] [place], [place] [phone] Assigned Gastroenterology Provider 06/20/22 08/14/22 Danya Barraza, [facility] 9 [place] [address] Assigned [place] Pharmacist 12/05/22 Deuce Majano PA-C [address] [place] [address] Assigned Gastroenterology Provider 01/23/23 02/05/23 Chapin Ruvalcaba MD 6 [facility] [address] [place], [place] [phone] Assigned Gastroenterology Provider 02/06/23 documented as of this encounter
--- OUTSIDE RECORDS SUMMARY | 2023-03-14 02:42 | XMS_ITS | Encounter Summary ---
Author Name Unknown Organization [facility] Address [address] [place] [address]. [place] [address] Care Team Providers Care Prevention Specialist Name Role Phone Chapin Khan MD Unavailable [phone] Brionna Covarrubias RN Unavailable [phone] Driss Morales MD Unavailable [phone] Danya Barraza [facility] Unavailable Romi Fairbanks MD Unavailable [phone] Maximino Arredondo MD Primary Care Provider Carmen Chapman APRN CITY ATTORNEY Unavailable + Danya Barraza [facility] Unavailable [phone] Jeanette French RN Unavailable [phone] Tammy Greenberg MD Unavailable [phone] Encounter Details Date Type Department Care Team (Latest Contact Info) Description 03/17/2022 Travel Social History Tobacco Use Types Packs/Day [...] suspected to have Coronavirus/COVID-19? No / Unsure 03/17/2022 9:55 AM SPRING INSPECTOR documented as of this encounter Plan of Treatment Upcoming Encounters Date Type Department Care Team (Late st Contact Info) Description 04/01/2023 1:15 PM SPRING INSPECTOR Office Visit [address] [phone] Yolanda Wilkerson, PAAnhC [address] [place] [address] 07/13/2023 8:00 AM CDT Virtual Visit [facility] Gastroenterology Clinic [address] [phone] Deuce Majano PA-C [address] [place] [address] documented as of this encounter Visit Diagnoses Not on filedocumented in this encounter Additional Health Concerns Infection Onset Date Last Indicated Resolved Time Recovered COVID 01/16/2022 01/16/2022 04/01/2022 1 1:39 PM SPRING INSPECTOR documented as of this encounter Care Teams Prevention Specialist Relationship Specialty Start Date End Date Maximino Arredondo MD [address] [place] [address] PCP - General Family Medicine 04/02/21 Chapin Khan MD [address] [place] [address] Urology 05/10/20 Brionna Covarrubias, FATOUMATA Registered Nurse Oncology 05/10/20 09/01/22 Driss Morales MD [address] [place] [address] [address] [place], [place] 813855 Assigned Surgical Provider 11/17/20 04/10/22 Danya Barraza [facility] [address] [place] [address] Pharmacist Pharmacist Shared Services And Outsourcing Manager 12/25/20 Romi Fairbanks MD [address] [address] Assigned Gastroenterology Provider 01/05/21 06/12/22 Carmen Chapman APRN CITY ATTORNEY [address] [place] [address] Assigned PCP 04/27/21 03/27/22 Danya Barraza [facility] [address] [place] [address] Assigned MTM Pharmacist 11/12/21 06/26/22 Jeaentte French RN [address] [place] [address] Specialty Senior Wealth Advisor Gastroenterology 12/30/21 Tammy Greenberg MD 420 [facility] 508 [place], [place] 665875 Cardiovascular Disease 02/24/22 documented as of this encounter
--- OUTSIDE RECORDS SUMMARY | 2023-03-14 02:42 | XMS_ITS | Encounter Summary ---
Author Name Unknown Organization [facility] Address [address] [place] [address]. [place] [address] Care Team Providers Care Electronic Engineering Draftsperson Name Role Phone Chapin Khan MD Unavailable [phone] Brionna Covarrubias RN Unavailable [phone] Driss Morales MD Unavailable [phone] Danya Barraza [facility] Unavailable Romi Fairbanks MD Unavailable [phone] Maximino Arredondo MD Primary Care Provider Carmen Chapman APRN DISTRIBUTION ESTIMATOR Unavailable + Danya Barraza [facility] Unavailable Jeanette French RN Unavailable [phone] Tammy Greenberg MD Unavailable [phone] Reason for Referral * Diagnostic Imaging Ultrasound (Routine) - Closed Specialty Diagnoses / Procedures Referred By Contac t Referred To Contact Diagnoses ESRD (end stage renal disease) on dialysis (H) Preop testing Procedures US Upper Extremity Venous Mapping Bilateral Genaro Palacios MD [address] [place] [address] Referral ID Status Reason Start Date Expiration Date Visits Re quested Visits Authorized [id number] Closed 03/05/2022 03/05/2023 1 1 R FABRICATION OPERATOR Reason for Visit * Diagnostic Imaging Ultrasound (Routine) - Closed Specialty Diagnoses / Procedures Referred By Sommer t Referred To Contact Diagnoses ESRD (end stage renal disease) on dialysis (H) Preop testing Procedures US Upper Extremity Venous Mapping Bilateral Genaro Palacios MD [address] [place] [id number] Referral ID Status Reason Start Date Expiration Date Visits Re quested Visits Authorized [id number] Closed 03/05/2022 03/05/2023 1 1 Encounter Details Date Type Department Care Team (Latest Contact Info) Description 03/19/2022 6:44 AM WAFER FABRICATION OPERATOR - 03/19/2022 11:59 PM WAFER FABRICATION OPERATOR Hospital Encounter [facility] [address] [address] Genaro Palacios MD [address] [place] [address] ESRD (end stage renal disease) on dialysis (H); Preop testing Discharge Disposition: Home or Self Care Social [...] suspected to have Coronavirus/COVID-19? No / Unsure 03/19/2022 6:43 AM WAFER FABRICATION OPERATOR documented as of this encounter Medications at [...] st Contact Info) Description 04/01/2023 1:15 PM WAFER FABRICATION OPERATOR Office Visit [address] [address] Yolanda Wilkerson PAAnhC [address] [place] [address] 07/13/2023 8:00 AM CDT Virtual Visit [facility] Gastroenterology Clinic [address] [place] [address] Deuce Majano PA-C [address] [place] [address] 585375 documented as of this encounter Procedures Procedure Name Priority Date/Time Associated Diagnosis Comments US UPPER EXTREMITY VENOUS MAPPING BILATERAL Routine 03/19/2022 7:44 AM WAFER FABRICATION OPERATOR ESRD (end stage renal disease) on dialysis (H) Preop testing documented in this encounter Results * US Upper Extremity Venous Mapping Bilateral (03/19/2022 7:44 AM WAFER FABRICATION OPERATOR) Anatomical Region Laterality Modality Vascular Ultrasound Impressions 03/19/2022 3:42 PM WAFER FABRICATION OPERATOR IMPRESSION: 1. Right cephalic vein in the upper arm ranges from 1.0 mm to 2.5 mm. 2. Right cephalic vein at and below the elbow is not visualized. 3. Left cephalic vein in the upper arm ranges from 6.1 mm to 11 mm. 4. Left cephalic vein at and below the elbow is not visualized. 5. Right basilic vein in the upper arm ranges from 0.9 mm to 3.4 mm. 6. Left basilic vein in the arm ranges from 1.0 mm to 3.9 mm. MICHELLE ZEPEDA DO Narrative 03/19/2022 3:42 PM WAFER FABRICATION OPERATOR US UPPER EXTREMITY VENOUS MAPPING BILATERAL DATE OF PROCEDURE: 03/19/2022 7:44 AM CLINICAL HISTORY/INDICATION: Evaluate for fistula creation. ESRD (end stage renal disease) on dialysis (H). Preoperative testing. FINDINGS/ Procedure Note Michelle Zepeda DO - 03/19/2022 US UPPER EXTREMITY VENOUS MAPPING BILATERAL DATE OF PROCEDURE: 03/19/2022 7:44 AM CLINICAL HISTORY/INDICATION: Evaluate for fistula creation. ESRD (end stage renal disease) on dialysis (H). Preoperative testing. FINDINGS/ IMPRESSION: 1. Right cephalic vein in the upper arm ranges from 1.0 mm to 2.5 mm. 2. Right cephalic vein at and below the elbow is not visualized. 3. Left cephalic vein in the upper arm ranges from 6.1 mm to 11 mm. 4. Left cephalic vein at and below the elbow is not visualized. 5. Right basilic vein in the upper arm ranges from 0.9 mm to 3.4 mm. 6. Left basilic vein in the arm ranges from 1.0 mm to 3.9 mm. MICHELLE ZEPEDA DO Genaro Palacios MD IMG US ORDERABL ES documented in this encounter Visit Diagnoses Diagnosis ESRD (end stage renal disease) on dialysis (H) End stage renal disease Preop testing Preoperative examination, unspecified documented in this encounter Additional Health Concerns Infection Onset Date Last Indicated Resolved Time Recovered COVID 01/16/2022 01/16/2022 04/01/2022 1 1:39 PM WAFER FABRICATION OPERATOR documented as of this encounter Care Teams Electronic Engineering Draftsperson Relationship Specialty Start Date End Date Maximino Arredondo MD [address] [place] [phone] PCP - General Family Medicine 04/02/21 Chapin Khan MD [address] [place] [address] [phone] Urology 05/10/20 Brionna Covarrubias, FATOUMATA Registered Nurse Oncology 05/10/20 09/01/22 Driss Morales MD [address] [place] [address] [phone] Assigned Surgical Provider 11/17/20 04/10/22 Danya Barraza [facility] [address] [place] [address] [phone] Pharmacist Pharmacist Email Campaign Manager 12/25/20 Romi Fairbanks MD [address] 825515 Assigned Gastroenterology Provider 01/05/21 06/12/22 Carmen Chapman APRN DISTRIBUTION ESTIMATOR [address] [place] [address] Assigned PCP 04/27/21 03/27/22 Danya Barraza, [facility] [address] [place] [address] 658875 Assigned MTM Pharmacist 11/12/21 06/26/22 Jeanette French RN [address] [place] [address] Specialty Student Support Advisor Gastroenterology 12/30/21 Tammy Greenberg MD [address] [place] [address] 508 [place], [place] 242785 Cardiovascular Disease 02/24/22 documented as of this encounter
--- OUTSIDE RECORDS SUMMARY | 2023-03-14 02:42 | XMS_ITS | Encounter Summary ---
Author Name Unknown Organization [facility] Address [address] [place] [address]. [place] [address] Care Team Providers Care Stave Saw Operator Name Role Phone Chapin Khan MD Unavailable [phone] Brionna Covarrubias RN Unavailable [phone] Driss Morales MD Unavailable [phone] Danya Barraza [facility] Unavailable Romi Fairbanks MD Unavailable [phone] Maximino Arredondo MD Primary Care Provider Carmen Chapman APRN HUMAN RESOURCES EXECUTIVE ASSISTANT Unavailable + Danya Barraza [facility] Unavailable [phone] Jeanette French RN Unavailable [phone] Tammy Greenberg MD Unavailable [phone] Encounter Details Date Type Department Care Team (Latest Contact Info) Description 03/27/2022 Travel Social History Tobacco Use Types Packs/Day [...] suspected to have Coronavirus/COVID-19? No / Unsure 03/27/2022 12:22 PM FUR POLISHER documented as of this encounter Plan of Treatment Upcoming Encounters Date Type Department Care Team (Late st Contact Info) Description 04/01/2023 1:15 PM FUR POLISHER Office Visit [address] [phone] Yolanda Wilkerson, PAMily [address] [place] [address] 07/13/2023 8:00 AM CDT Virtual Visit [facility] Gastroenterology [facility] [address] [phone] Deuce Majano PA-C [address] [place] [address] documented as of this encounter Visit Diagnoses Not on filedocumented in this encounter Additional Health Concerns Infection Onset Date Last Indicated Resolved Time Recovered COVID 01/16/2022 01/16/2022 04/01/2022 1 1:39 PM FUR POLISHER documented as of this encounter Care Teams Stave Saw Operator Relationship Specialty Start Date End Date Maximino Arredondo MD [address] [place] [address] PCP - General Family Medicine 04/02/21 Chapin Khan MD [address] [place] [address] Urology 05/10/20 Brionna Covarrubias, FATOUMATA Registered Nurse Oncology 05/10/20 09/01/22 Driss Morales MD [address] [place] [address] 195 [place], [place] 847155 Assigned Surgical Provider 11/17/20 04/10/22 Danya Barraza [facility] [address] [place] [address] Pharmacist Pharmacist Registered Veterinary Technician 12/25/20 Romi Fairbanks MD [address] [address] Assigned Gastroenterology Provider 01/05/21 06/12/22 Carmen Chapman APRN HUMAN RESOURCES EXECUTIVE ASSISTANT [address] [place] [address] Assigned PCP 04/27/21 03/27/22 Danya Barraza [facility] [address] [place] [address] Assigned MTM Pharmacist 11/12/21 06/26/22 Jeanette French RN [address] [place] [address] Specialty Dyeing Machine Feeder Gastroenterology 12/30/21 Tammy Greenberg MD 420 [facility] 508 [place], [place] 171305 Cardiovascular Disease 02/24/22 documented as of this encounter
--- OUTSIDE RECORDS SUMMARY | 2023-03-14 02:42 | XMS_ITS | Encounter Summary ---
Author Name Unknown Organization [place] Address [address] [place] [address] Care Team Providers Care Fur Trimmer Name Role Phone Chapin Khan MD Unavailable [phone] Brionna Covarrubias RN Unavailable [phone] Driss Moraels MD Unavailable [phone] Danya Barraza [facility] Unavailable +1- Romi Fairbanks MD Unavailable [phone] Maximino Arredondo MD Primary Care Provider [phone] Carmen Chapman APRN DIABETES TRAINER Unavailable + Danya Barraza [facility] Unavailable [phone] Jeanette French RN Unavailable [phone] Tammy Greenberg MD Unavailable [phone] Genaro Palacios MD Unavailable [phone] Claude Rucker MD Unavailable [phone] Delroy Gore APRN DIABETES TRAINER Unavailable +1- Chapin Ruvalcaba MD Unavailable [phone] Romi Fairbanks MD Unavailable +[phone] Danya Barraza [facility] Unavailable +1- Deuce Majano PA-C Unavailable [phone] Chapin Ruvalcaba MD Unavailable +[phone] Encounter Details Date Type Department Care Team (Late Contact Info) Description 01/28/2022 MyC Medical Advice Initial Department Latrice Petty, FATOUMATA Social History Tobacco Use Types Packs/Day [...] suspected to have Coronavirus/COVID-19? No / Unsure 01/21/2022 10:20 AM COMPUTER NETWORK AND SYSTEMS ENGINEER documented as of this encounter Plan of Treatment Upcoming Encounters Date Type Department Care Team (Late Contact Info) Description 04/01/2023 1:15 PM COMPUTER NETWORK AND SYSTEMS ENGINEER Office Visit [address] [phone] Yolanda Wilkerson PA-C [address] [place] [address] 911805 07/13/2023 8:00 AM CDT Virtual Visit [facility] Gastro[facility]ology Clinic [address] [place] [address] Deuce Majano PA-C [address] [place] [address] [phone] documented as of this encounter Visit Diagnoses Not on filedocumented in this encounter Additional Health Concerns Infection Onset Date Last Indicated Resolved Time Recovered COVID 01/16/2022 01/16/2022 04/01/2022 1 1:39 PM COMPUTER NETWORK AND SYSTEMS ENGINEER Rule Out C-difficile 03/10/2023 03/10/2023 024 5:57 PM COMPUTER NETWORK AND SYSTEMS ENGINEER documented as of this encounter Care Teams Fur Trimmer Relationship Specialty Start Date End Date Maximino Arredondo MD [address] [place] [phone] PCP - General Family Medicine 04/02/21 Chapin Khan MD [address] [place] [address] [phone] Urology 05/10/20 Brionna Covarrubias, RN Registered Nurse Oncology 05/10/20 09/01/22 Driss Morales MD [address] [place] [address] [phone] Assigned Surgical Provider 11/17/20 04/10/22 Danya Barraza [facility] [address] [place] [address] Pharmacist Pharmacist Vegetable Washer 12/25/20 Romi Fairbanks MD [address] 946385 Assigned Gastroenterology Provider 01/05/21 06/12/22 Carmen Chapman APRN DIABETES TRAINER [address] [place] [address] Assigned PCP 04/27/21 03/27/22 Danya Barraza [facility] [address] [place] [address] [phone] Assigned MTM Pharmacist 11/12/21 06/26/22 Jeanette French, FATOUMATA [address] [place] [address] [phone] Specialty Dry Chain Puller Gastroenterology 12/30/21 Tammy Greenberg MD [address] [place], [place] [address] [place], [place] 889505 Cardiovascular Disease 02/24/22 [place] [address] [place] [address] 639005 Assigned Heart and Vascular Provider 03/28/22 Claude Rucker MD [address] [place] [address] 930035 Assigned Surgical Provider 04/11/22 Delroy Gore, CONTROLS TECHNICIAN DIABETES TRAINER [address] [place] [address] Assigned Nephrology Provider 04/25/22 Chapin Ruvalcaba MD [address] [place] [address] [phone] Assigned Gastroenterology Provider 06/13/22 06/19/22 Romi Fairbanks MD [address] 326415 Assigned Gastroenterology Provider 06/20/22 08/14/22 Danya Barraza [facility] 9[address] [place], [place] 295585 Assigned [place] Pharmacist 12/05/22 Deuce Majano PA-C 9 [place], [place] 519915 Assigned Gastroenterology Provider 01/23/23 02/05/23 Chapin Ruvalcaba MD [address] [facility] [address] [place], [place] 882715 Assigned Gastroenterology Provider 02/06/23 documented as of this encounter
--- OUTSIDE RECORDS SUMMARY | 2023-03-14 02:42 | XMS_ITS | Encounter Summary ---
Author Name Unknown Organization [place] Address [address] [place] [address] Care Team Providers Care Class A Lineman Name Role Phone Chapin Khan MD Unavailable [phone] Brionna Covarrubias RN Unavailable [phone] Driss Morales MD Unavailable +[phone] Danya Barraza [facility] Unavailable +1- Romi Fairbanks MD Unavailable +[phone] Maximino Arredondo MD Primary Care Provider [phone] Caremn Chapman APRN AEROSPACE ENGINEER OFFICER ARMAMENT Unavailable + Danya Barraza [facility] Unavailable [phone] Jeanette French RN Unavailable [phone] Tammy Greenberg MD Unavailable +[phone] Genaro Palacios MD Unavailable +[phone] Claude Rucker MD Unavailable +[phone] Delroy Gore APRN AEROSPACE ENGINEER OFFICER ARMAMENT Unavailable +1- Chapin Ruvalcaba MD Unavailable +[phone] Romi Fairbanks MD Unavailable +[phone] Danya Barraza [facility] Unavailable +1- Deuce Majano PA-C Unavailable +[phone] Chapin Ruvalcaba MD Unavailable +[phone] Encounter Details Date Type Department Care Team (Late Contact Info) Description 01/09/2022 [facility] [place] [facility] [place] [facility] [address] [place] [phone] Amanda Carter Social History Tobacco Use Types Packs/Day Years Used Date Smoking Tobacco: Every Day Cigarettes 0.5 50 Last attempted to quit: 12/04/2019 Smokeless [...] suspected to have Coronavirus/COVID-19? No / Unsure 01/09/2022 5:10 AM RAIL BENDER documented as of this encounter Plan of Treatment Upcoming Encounters Date Type Department Care Team (Late Contact Info) Description 04/01/2023 1:15 PM RAIL BENDER Office Visit [address] [address] Yolanda Wilkerson PA-C [address] [place] [address] [phone] 07/13/2023 8:00 AM CDT Virtual Visit [facility] [address] [place] [phone] Deuce Majano PA-C [address] [place] [address] [phone] documented as of this encounter Visit Diagnoses Not on filedocumented in this encounter Additional Health Concerns Infection Onset Date Last Indicated Resolved Time COVID-19 01/02/2022 01/02/2022 01/16/2022 7:58 AM RAIL BENDER Recovered COVID 01/16/2022 01/16/2022 04/01/2022 1 1:39 PM RAIL BENDER Rule Out C-difficile 03/10/2023 03/10/2023 024 5:57 PM RAIL BENDER documented as of this encounter Care Teams Class A Lineman Relationship Specialty Start Date End Date Maximino Arredondo MD [address] [place] [phone] PCP - General Family Medicine 04/02/21 Chapin Khan MD [address] [place] [address] 378315 Urology 05/10/20 Brionna Covarrubias, FATOUMATA Registered Nurse Oncology 05/10/20 09/01/22 Driss Morales MD [address] [place] [address] [phone] Assigned Surgical Provider 11/17/20 04/10/22 Danya Barraza, [facility] [address] [place] [address] Pharmacist Pharmacist Aircraft Refueller 12/25/20 Romi Fairbanks MD [address] [phone] Assigned Gastroenterology Provider 01/05/21 06/12/22 Carmen Chapman APRN AEROSPACE ENGINEER OFFICER ARMAMENT [address] [place] [address] Assigned PCP 04/27/21 03/27/22 Danya Barraza [facility] [address] [place], [place] 399425 Assigned MTM Pharmacist 11/12/21 06/26/22 Jeaentte French RN [address] [place] [address] [phone] Specialty Document Advisor Gastroenterology 12/30/21 Tammy Greenberg MD [address] [place] [address] 508 [place], [place] [phone] Cardiovascular Disease 02/24/22 Genaro Palacios MD [address] 336405 Assigned Heart and Vascular Provider 03/28/22 Claude Rucker MD [address] [place] [place] [address] [phone] Assigned Surgical Provider 04/11/22 Delroy Gore APRN AEROSPACE ENGINEER OFFICER ARMAMENT [address] [place] [address] 753575 Assigned Nephrology Provider 04/25/22 Chapin Ruvalcaba MD [address] [facility] [address] [place], [place] 745985 Assigned Gastroenterology Provider 06/13/22 06/19/22 Romi Fairbanks MD [address] [address] Assigned Gastroenterology Provider 06/20/22 08/14/22 Danya Barraza, [facility] [address] [place] [address] Assigned [place] Pharmacist 12/05/22 Deuce Majano PA-C [address] [place] [address] Assigned Gastroenterology Provider 01/23/23 02/05/23 Chapin Ruvalcaba MD [address] [place] [address] [phone] Assigned Gastroenterology Provider 02/06/23 documented as of this encounter
--- OUTSIDE RECORDS SUMMARY | 2023-03-14 02:42 | XMS_ITS | Encounter Summary ---
Author Name Unknown Organization [place] Address [address] [place] [address]. [place] [address] Care Team Providers Care Viscose Cellar Worker Name Role Phone Chapin Khan MD Unavailable [phone] Brionna Covarrubias RN Unavailable [phone] Driss Morales MD Unavailable [phone] Danya Barraza [facility] Unavailable [phone] Romi Fairbanks MD Unavailable [phone] Maximino Arredondo MD Primary Care Provider [phone] Carmen Chapman APRN BOATSWAIN MATE Unavailable + Danya Barraza [facility] Unavailable Jeanette French RN Unavailable [phone] Tammy Greenberg MD Unavailable [phone] Encounter Details Date Type Department Care Team (Late st Contact Info) Description 03/23/2022 Telephone [facility] [address] [place] [phone] Genaro Palacios MD [address] [place] [id number] Social History Tobacco Use Types Packs/Day Years [...] Coronavirus/COVID-19? No / Unsure 03/19/2022 6:[address] MANAGER documented as of this encounter Miscellaneous Notes * Telephone Encounter - Niki Camarillo - 03/24/2022 3:[address] MANAGER Spoke with patient and informed him on his surgery date of 03/31/22 @ 2:15pm with check-in time 12:15PM. T MANAGER * Telephone Encounter - Niki Camarillo - 03/24/2022 8:[address] MANAGER Patient left VM that there are no dates that would not work. He would like to schedule soon as his arm is getting bigger and bigger and is starting to hurt. He wants to confirm that it would be an overnight stay and he would be more comfortable with that as it is going into his neck. T MANAGER documented in this encounter Plan of Treatment Upcoming Encounters Date Type Department Care Team (Late st Contact Info) Description 04/01/2023 1:[address] MANAGER Office Visit [facility] [address] [place] [phone] Yolanda Wilkerson PA-C [address] [place] [address] 07/13/2023 8:00 AM CDT Virtual Visit [facility] [address] 4th [place] [phone] Deuce Majano PA-C [address] [place] [address] [phone] documented as of this encounter Visit Diagnoses Not on filedocumented in this encounter Additional Health Concerns Infection Onset Date Last Indicated Resolved Time Recovered COVID 01/16/2022 01/16/2022 04/01/2022 1 1:[address] MANAGER documented as of this encounter Care Teams Viscose Cellar Worker Relationship Specialty Start Date End Date Maximino Arredondo MD [address] [place] [phone] PCP - General Family Medicine 04/02/21 Chapin Khan MD [address] [place] [address] [phone] Urology 05/10/20 Brionna Covarrubias, RN Registered Nurse Oncology 05/10/20 09/01/22 Driss Morales MD [address] [place] [address] 339285 Assigned Surgical Provider 11/17/20 04/10/22 Danya Barraza, [facility] [address] [place] [address] 349155 Pharmacist Pharmacist Skin Tanner 12/25/20 Romi Fairbanks MD [address] 240645 Assigned Gastroenterology Provider 01/05/21 06/12/22 Carmen Chapman APRN [facility] [address] [place] [address] [phone] Assigned PCP 04/27/21 03/27/22 Danya Barraza, [facility] [address] [place] [address] Assigned MTM Pharmacist 11/12/21 06/26/22 Jeanette French RN [address] [place] [address] [phone] Specialty Applications Project Manager Gastroenterology 12/30/21 Tammy Greenberg MD [address] [place] [address] 508 [place] [address] Cardiovascular Disease 02/24/22 documented as of this encounter
--- OUTSIDE RECORDS SUMMARY | 2023-03-14 02:42 | XMS_ITS | Encounter Summary ---
Author Name Unknown Organization [place] Address [address] [place] [address] Care Team Providers Care Credit Officer Name Role Phone Chapin Khan MD Unavailable [phone] Brionna Covarrubias RN Unavailable [phone] Driss Morales MD Unavailable [phone] Danya Barraza [facility] Unavailable +1- Romi Fairbanks MD Unavailable +[phone] Maximino Arredondo MD Primary Care Provider [phone] Carmen Chapman APRN MONUMENT CARVER Unavailable + Danya Barraza [facility] Unavailable [phone] Jeanette French RN Unavailable [phone] Tammy Greenberg MD Unavailable [phone] Genaro Palacios MD Unavailable [phone] Claude Rucker MD Unavailable +[phone] Delroy Gore APRN MONUMENT CARVER Unavailable +1- Chapin Ruvalcaba MD Unavailable [phone] Romi Fairbanks MD Unavailable +[phone] Danya Barraza [facility] Unavailable +1- Deuce Majano PA-C Unavailable [phone] Chapin Ruvalcaba MD Unavailable [phone] Encounter Details Date Type Department Care Team (Late Contact Info) Description 01/09/2022 [facility] [place] [address] [place] [phone] Amanda Carter Social History Tobacco Use [...] Coronavirus/COVID-19? No / Unsure 01/09/2022 5:10 AM MODEL ENGINE MECHANIC documented as of this encounter Plan of Treatment Upcoming Encounters Date Type Department Care Team (Late Contact Info) Description 04/01/2023 1:15 PM MODEL ENGINE MECHANIC Office Visit [address] [phone] Yolanda Wilkerson PA-C [address] [place] [address] [phone] 07/13/2023 8:00 AM CDT Virtual Visit [facility] G[facility] [address] [place] [phone] Deuce Majano PA-C [address] [place] [address] [phone] documented as of this encounter Visit Diagnoses Not on filedocumented in this encounter Additional Health Concerns Infection Onset Date Last Indicated Resolved Time COVID-19 01/02/2022 01/02/2022 01/16/2022 7:58 AM MODEL ENGINE MECHANIC Recovered COVID 01/16/2022 01/16/2022 04/01/2022 1 1:39 PM MODEL ENGINE MECHANIC Rule Out C-difficile 03/10/2023 03/10/2023 024 5:57 PM MODEL ENGINE MECHANIC documented as of this encounter Care Teams Credit Officer Relationship Specialty Start Date End Date Maximino Arredondo MD [address] [place] [phone] PCP - General Family Medicine 04/02/21 Chapin Khan MD [address] [place] [address] [phone] Urology 05/10/20 Brionna Covarrubias, FATOUMATA Registered Nurse Oncology 05/10/20 09/01/22 Driss Morales MD [address] [place] [address] [phone] Assigned Surgical Provider 11/17/20 04/10/22 Danya Barraza, [facility] [address] [place] [address] Pharmacist Pharmacist Doughmaker 12/25/20 Romi Fairbanks MD [address] 427045 Assigned Gastroenterology Provider 01/05/21 06/12/22 Carmen Chapman APRN MONUMENT CARVER [address] [place] [address] Assigned PCP 04/27/21 03/27/22 Danya Barraza [facility] 9 [place], [place] 036975 Assigned MTM Pharmacist 11/12/21 06/26/22 Jeanette French RN [address] [place] [address] [phone] Specialty Skating Rink Ice Maker Gastroenterology 12/30/21 Tammy Greenberg MD [address] [place] [address] 508 [place], [place] 436315 Cardiovascular Disease 02/24/22 Genaro Palacios MD [address] 735775 Assigned Heart and Vascular Provider 03/28/22 Claude Rucker MD [address] [place] [address] 187055 Assigned Surgical Provider 04/11/22 Delroy Gore APRN MONUMENT CARVER [address] [place] [address] 564155 Assigned Nephrology Provider 04/25/22 Chapin Ruvalcaba MD 6 [facility] [address] [place], [place] 345775 Assigned Gastroenterology Provider 06/13/22 06/19/22 Romi Fairbanks MD [address] [address] Assigned Gastroenterology Provider 06/20/22 08/14/22 Danya Barraza, [facility] [address] [place] [address] Assigned [place] Pharmacist 12/05/22 Deuce Majano PA-C [address] [place] [address] Assigned Gastroenterology Provider 01/23/23 02/05/23 Chapin Ruvalcaba MD [address] [place] [address] [phone] Assigned Gastroenterology Provider 02/06/23 documented as of this encounter
--- OUTSIDE RECORDS SUMMARY | 2023-03-14 02:42 | XMS_ITS | Encounter Summary ---
Author Name Unknown Organization [place] Address [address] [place] [address] Care Team Providers Care Yard Engineer Name Role Phone Chapin Khan MD Unavailable +[phone] Brionna Covarrubias RN Unavailable [phone] Driss Morales MD Unavailable [phone] Danya Barraza [facility] Unavailable +1- Romi Fairbanks MD Unavailable +[phone] Maximino Arredondo MD Primary Care Provider +[phone] Carmen Chapman APRN TIPPLE ENGINEER Unavailable + Danya Barraza [facility] Unavailable [phone] Jeanette French RN Unavailable [phone] Tammy Greenberg MD Unavailable [phone] Genaro Palacios MD Unavailable [phone] Claude Rucker MD Unavailable +[phone] Delroy Gore APRN TIPPLE ENGINEER Unavailable +1- Chapin Ruvalcaba MD Unavailable +[phone] Romi Fairbanks MD Unavailable +[phone] Danya Barraza [facility] Unavailable +1- Deuce Majano PA-C Unavailable +[phone] Chapin Ruvalcaba MD Unavailable +[phone] Encounter Details Date Type Department Care Team (Late Contact Info) Description 01/16/2022 [facility] [place] [address] [place] [phone] Aamnda Carter Social History Tobacco Use Types Packs/Day [...] Coronavirus/COVID-19? No / Unsure 01/09/2022 5:10 AM OVERHEAD CLEANER documented as of this encounter Plan of Treatment Upcoming Encounters Date Type Department Care Team (Late Contact Info) Description 04/01/2023 1:15 PM OVERHEAD CLEANER Office Visit [address] [phone] Yolanda Wilkerson PA-C [address] [place] [address] [phone] 07/13/2023 8:00 AM CDT Virtual Visit [facility] G[facility] [address] [place] [phone] Deuce Majano PA-C [address] [place] [address] [phone] documented as of this encounter Visit Diagnoses Not on filedocumented in this encounter Additional Health Concerns Infection Onset Date Last Indicated Resolved Time COVID-19 01/02/2022 01/02/2022 01/16/2022 7:58 AM OVERHEAD CLEANER Recovered COVID 01/16/2022 01/16/2022 04/01/2022 1 1:39 PM OVERHEAD CLEANER Rule Out C-difficile 03/10/2023 03/10/2023 024 5:57 PM OVERHEAD CLEANER documented as of this encounter Care Teams Yard Engineer Relationship Specialty Start Date End Date Maximino Arredondo MD [address] [place] [phone] PCP - General Family Medicine 04/02/21 Chapin Khan MD [address] [place] [address] 275275 Urology 05/10/20 Brionna Covarrubias, FATOUMATA Registered Nurse Oncology 05/10/20 09/01/22 Driss Morales MD [address] [place] [address] [phone] Assigned Surgical Provider 11/17/20 04/10/22 Danya Barraza, [facility] [address] [place] [address] Pharmacist Pharmacist Machine Featheredger And Reducer 12/25/20 Romi Fairbanks MD [address] 011995 Assigned Gastroenterology Provider 01/05/21 06/12/22 Carmen Chapman APRN TIPPLE ENGINEER [address] [place] [address] Assigned PCP 04/27/21 03/27/22 Danya Barraza [facility] 9 [place], [place] 358565 Assigned MTM Pharmacist 11/12/21 06/26/22 Jeanette French RN [address] [place] [address] [phone] Specialty Parts Lister Gastroenterology 12/30/21 Tammy Greenberg MD [address] [place] [address] 508 [place], [place] 536085 Cardiovascular Disease 02/24/22 Genaro Palacios MD [address] 628165 Assigned Heart and Vascular Provider 03/28/22 Claude Rucker MD [address] [place] [address] 527815 Assigned Surgical Provider 04/11/22 eDlroy Gore APRN TIPPLE ENGINEER [address] [place] [address] 973105 Assigned Nephrology Provider 04/25/22 Chapin Ruvalcaba MD 6 [facility] [address] [place], [place] 522395 Assigned Gastroenterology Provider 06/13/22 06/19/22 Romi Fairbanks MD [address] [address] Assigned Gastroenterology Provider 06/20/22 08/14/22 Danya Barraza, [facility] [address] [place] [address] Assigned [place] Pharmacist 12/05/22 Deuce Majano PA-C [address] [place] [address] Assigned Gastroenterology Provider 01/23/23 02/05/23 Chapin Ruvalcaba MD [address] [place] [address] [phone] Assigned Gastroenterology Provider 02/06/23 documented as of this encounter
--- OUTSIDE RECORDS SUMMARY | 2023-03-14 02:42 | XMS_ITS | Encounter Summary ---
Author Name Unknown Organization [place] Address [address] [place] [address]. [place] [address] Care Team Providers Care Banana Ripening Room Supervisor Name Role Phone Chapin Khan MD Unavailable [phone] Brionna Covarrubias RN Unavailable [phone] Driss Morales MD Unavailable [phone] Danya Barraza [facility] Unavailable Romi Fairbanks MD Unavailable [phone] Maximino Arredondo MD Primary Care Provider Carmen Chapman APRN CASH MANAGEMENT COORDINATOR Unavailable + Danya Barraza [facility] Unavailable Jeanette French RN Unavailable [phone] Tammy Greenberg MD Unavailable [phone] Encounter Details Date Type Department Care Team (Latest Contact Info) Description 03/19/2022 Travel Social History Tobacco Use Types Packs/Day [...] Coronavirus/COVID-19? No / Unsure 03/19/2022 6:43 AM TRANSPORT ASSISTANT documented as of this encounter Plan of Treatment Upcoming Encounters Date Type Department Care Team (Late st Contact Info) Description 04/01/2023 1:15 PM TRANSPORT ASSISTANT Office Visit [address] [phone] Yolanda Wilkerson, PAMily [address] [place] [address] 07/13/2023 8:00 AM CDT Virtual Visit [facility] Clinic [address] [phone] Deuce Majano PA-C [address] [place] [address] documented as of this encounter Visit Diagnoses Not on filedocumented in this encounter Additional Health Concerns Infection Onset Date Last Indicated Resolved Time Recovered COVID 01/16/2022 01/16/2022 04/01/2022 1 1:39 PM TRANSPORT ASSISTANT documented as of this encounter Care Teams Banana Ripening Room Supervisor Relationship Specialty Start Date End Date Maximino Arredondo MD [address] [place] [address] PCP - General Family Medicine 04/02/21 Chapin Khan MD [address] [place] [address] 35866 Urology 05/10/20 Brionna Covarrubias, FATOUMATA Registered Nurse Oncology 05/10/20 09/01/22 Driss Morales MD [address] [place] [address] 195 [place], [place] 242985 Assigned Surgical Provider 11/17/20 04/10/22 Danya Barraza [facility] [address] [place] [address] Pharmacist Pharmacist Construction Project Coordinator 12/25/20 Romi Fairbanks MD [address] [address] Assigned Gastroenterology Provider 01/05/21 06/12/22 Carmen Chapman APRN CASH MANAGEMENT COORDINATOR [address] [place] [address] Assigned PCP 04/27/21 03/27/22 Danya Barraza [facility] [address] [place] [address] Assigned MTM Pharmacist 11/12/21 06/26/22 Jeanette French RN [address] [place] [address] Specialty Receiver Bulk System Gastroenterology 12/30/21 Tammy Greenberg MD 420 [facility] 508 [place], [place] 754265 Cardiovascular Disease 02/24/22 documented as of this encounter
--- OUTSIDE RECORDS SUMMARY | 2023-03-14 02:42 | XMS_ITS | Encounter Summary ---
Author Name Unknown Organization [facility] Address [address] [place] [address] Care Team Providers Care Line Lead Name Role Phone Chapin Khan MD Unavailable [phone] Brionna Covarrubias RN Unavailable [phone] Driss Morales MD Unavailable [phone] Danya Barraza [facility] Unavailable +[phone] Romi Fairbanks MD Unavailable [phone] Maximino Arredondo MD Primary Care Provider [phone] Carmen Chapman APRN PLANNER CHIEF Unavailable + Danya Barraza [facility] Unavailable [phone] Jeanette French RN Unavailable [phone] Tammy Greenberg MD Unavailable [phone] Genaro Palacios MD Unavailable [phone] Claude Rucker MD Unavailable [phone] Delroy Gore APRN PLANNER CHIEF Unavailable +[phone] Chapin Ruvalcaba MD Unavailable [phone] Romi Fairbanks MD Unavailable +[phone] Danya Barraza [facility] Unavailable +1- Deuce Majano PA-C Unavailable [phone] Chapin Ruvalcaba MD Unavailable [phone] Encounter Details Date Type Department Care Team (Late Contact Info) Description 01/16/2022 [facility] Advice Adult Call Center [address] [place] [phone] Amanda Carter Social History Tobacco Use [...] Coronavirus/COVID-19? No / Unsure 01/09/2022 5:10 AM TELEGRAPH OFFICE MANAGER documented as of this encounter Plan of Treatment Upcoming Encounters Date Type Department Care Team (Late Contact Info) Description 04/01/2023 1:15 PM TELEGRAPH OFFICE MANAGER Office Visit [address] [address] Yolanda Wilkerson PA-C [address] [place] [address] [phone] 07/13/2023 8:00 AM CDT Virtual Visit [facility] [address] [place] [phone] Deuce Majano PA-C [address] [place] [phone] documented as of this encounter Visit Diagnoses Not on filedocumented in this encounter Additional Health Concerns Infection Onset Date Last Indicated Resolved Time COVID-19 01/02/2022 01/02/2022 01/16/2022 7:58 AM TELEGRAPH OFFICE MANAGER Recovered COVID 01/16/2022 01/16/2022 04/01/2022 1 1:39 PM TELEGRAPH OFFICE MANAGER Rule Out C-difficile 03/10/2023 03/10/2023 024 5:57 PM TELEGRAPH OFFICE MANAGER documented as of this encounter Care Teams Line Lead Relationship Specialty Start Date End Date Maximino Arredondo MD [address] [place] [phone] PCP - General Family Medicine 04/02/21 Chapin Khan MD [address] [place] [address] [phone] Urology 05/10/20 Brionna Covarrubias, FATOUMATA Registered Nurse Oncology 05/10/20 09/01/22 Driss Morales MD [address] [place] [address] [phone] Assigned Surgical Provider 11/17/20 04/10/22 Danya Barraza, [facility] [address] [place] [address] Pharmacist Pharmacist Chemical Packager 12/25/20 Romi Fairbanks MD [address] [phone] Assigned Gastroenterology Provider 01/05/21 06/12/22 Carmen Chapman APRN PLANNER CHIEF [address] [place] [address] Assigned PCP 04/27/21 03/27/22 Danya Barraza [facility] [address] [place], [place] [phone] Assigned MTM Pharmacist 11/12/21 06/26/22 Jeanette French RN [address] [place] [address] [phone] Specialty Child And Family Counselor Gastroenterology 12/30/21 Tammy Greenberg MD [address] [place] [address] [address] [place], [place] [phone] Cardiovascular Disease 02/24/22 Genaro Palacios MD [address] [phone] Assigned Heart and Vascular Provider 03/28/22 Claude Rucker MD [address] [place] [address] [phone] Assigned Surgical Provider 04/11/22 Delroy Gore APRN PLANNER CHIEF [address] [place] [address] [phone] Assigned Nephrology Provider 04/25/22 Chapin Ruvalcaba MD [address] [facility] [address] [place], [place] 509125 Assigned Gastroenterology Provider 06/13/22 06/19/22 Romi Fairbanks MD [address] [address] Assigned Gastroenterology Provider 06/20/22 08/14/22 Danya Barraza, [facility] [address] [place] [address] Assigned [place] Pharmacist 12/05/22 Deuce Majano PA-C [address] [place] [address] Assigned Gastroenterology Provider 01/23/23 02/05/23 Chapin Ruvalcaba MD [address] [place] [address] [phone] Assigned Gastroenterology Provider 02/06/23 documented as of this encounter
--- OUTSIDE RECORDS SUMMARY | 2023-03-14 02:42 | XMS_ITS | Encounter Summary ---
Author Name Unknown Organization [facility] Address [address] [place] [address]. [place] [address] Care Team Providers Care Minister Assistant Name Role Phone Chapin Khan MD Unavailable [phone] Brionna Covarrubias RN Unavailable [phone] Driss Morales MD Unavailable [phone] Danya Barraza [facility] Unavailable [phone] Romi Fairbanks MD Unavailable [phone] Maximino Arredondo MD Primary Care Provider [phone] Carmen Chapman APRN EXTENSION AGENT Unavailable + Danya Barraza [facility] Unavailable Jeanette French RN Unavailable [phone] Tammy Greenberg MD Unavailable [phone] Genaro Palacios MD Unavailable [phone] Claude Rucker MD Unavailable [phone] Delroy Gore AREA FIELD WORKER EXTENSION AGENT Unavailable [phone] Reason for Visit * Reason Onset Date Comments Pt. Information/instruction 01/15/2022 [place] noscopy Encounter Details Date Type Department Care Team ([facility] Contact Info) Description 01/15/2022 Telephone [facility] Endoscopy [address] [place] [address] Michelle Prescott RN Pt. Information/instruction (Colonoscopy ) Social History Tobacco Use Types Packs/Day [...] encounter Miscellaneous Notes * Telephone Encounter - Michelle Prescott RN - 01/20/2022 9:48 AM EDUCATIONAL INTERPRETER Pre op 01/19/22 FP at [facility] with Gunnar Blanca RN ATIONAL INTERPRETER * Telephone Encounter - Michelle Prescott RN - 01/19/2022 9:02 AM EDUCATIONAL INTERPRETER Upon review primary is not with [facility]. Patient is established at [facility]. Med Peds unable to see pre op completed or scheduled. Left message to return call [phone] #4 Michelle Zapata RN ATIONAL INTERPRETER * Telephone Encounter - Michelle Prescott RN - 01/16/2022 1:21 PM EDUCATIONAL INTERPRETER Patient rescheduled to 01/21/[address] Marr. Pre assessment questions completed for upcoming colonoscopy procedure scheduled on 01/21/22 COVID policy reviewed. +Covid 01/02/22 Pre op scheduled? Patient was not aware this was needed. Patient will call to schedule with primary. Patient is aware this is needed prior to procedure. Reviewed procedural arrival time 1115 and facility location [facility]; [address] [place] [address] Designated race car driver policy reviewed. Instructed to have someone stay 24 hours post procedure. Reviewed procedure prep instructions. Patient verbalized understanding and had no questions or concerns at this time. Michelle Zapata RN ATIONAL INTERPRETER * Telephone Encounter - Michelle Prescott RN - 01/15/2022 10:24 AM EDUCATIONAL INTERPRETER Patient scheduled for colonoscopy on 01/22/22 . +Covid 01/02/22 Pre op exam scheduled: N/A (see below) Arrival time: 0800 Facility location: [facility]; [address] [place], [place] [id number] Sedation type: Conscious sedation - staff message sent to endoscopy scheduling to clarify as order states MAC and with Dr. Fairbanks. Patient is scheduled with Dr. Taylor and under CS. (program writer unsure if Dr Fairbanks has cases scheduled at [facility]) Anticoagulations? No Electronic implanted devices? No Diabetic? No Indication for procedure: crohn's Bowel prep recommendation: Standard Golytely d/t ESRD. Patient is on dialysis Prep instructions sent via wunderloop Bowel prep script sent to [place], [place] - [facility] [address] Pre visit planning completed. Michelle Zapata RN ATIONAL INTERPRETER documented in this encounter Plan of Treatment Upcoming Encounters Date Type Department Care Team (Late st Contact Info) Description 04/01/2023 1:15 PM EDUCATIONAL INTERPRETER Office Visit [address] [phone] Yolanda Wilkerson, PAMily [address] [place] [phone] 07/13/2023 8:00 AM CDT Virtual Visit [facility] [address] 4th [place] [phone] Deuce Majano PA-C [address] [place] [address] documented as of this encounter Visit Diagnoses Diagnosis Crohn's disease of both small and large intestine with other complication (H)- Primary documented in this encounter Additional Health Concerns Infection Onset Date Last Indicated Resolved Time COVID-19 01/02/2022 01/02/2022 01/16/2022 7:58 AM EDUCATIONAL INTERPRETER Recovered COVID 01/16/2022 01/16/2022 04/01/2022 1 1:39 PM EDUCATIONAL INTERPRETER documented as of this encounter Care Teams Minister Assistant Relationship Specialty Start Date End Date Maximino [place] [phone] PCP - General Family Medicine 04/02/21 Chapin Khan MD [address] [place] [address] Urology 05/10/20 Brionna Covarrubias, RN Registered Nurse Oncology 05/10/20 09/01/22 Driss Morales MD [address] [place] [address] Assigned Surgical Provider 11/17/20 04/10/22 Danya Barraza, [facility] [address] [place] [address] [phone] Pharmacist Pharmacist Facility Maintenance Manager 12/25/20 Romi Fairbanks MD [address] [phone] Assigned Gastroenterology Provider 01/05/21 06/12/22 Carmne Chapman APRN EXTENSION AGENT [address] [place] [address] Assigned PCP 04/27/21 03/27/22 [facility] [address] [place] [address] [phone] Assigned MTM Pharmacist 11/12/21 06/26/22 Jeanette French, FATOUMATA [address] [place] [address] [phone] Specialty Financial Institution President Gastroenterology 12/30/21 Tammy Greenberg MD [address] [place] [address] [address] [place], [place] [phone] Cardiovascular Disease 02/24/22 [place] [address] [place] [address] [place] [address] Assigned Heart and Vascular Provider 03/28/22 Claude Rucker MD [address] [place] [address] [phone] Assigned Surgical Provider 04/11/22 Delroy Gore APRN EXTENSION AGENT [address] [place] [address] [phone] Assigned Nephrology Provider 04/25/22 documented as of this encounter
--- OUTSIDE RECORDS SUMMARY | 2023-03-14 02:42 | XMS_ITS | Encounter Summary ---
Author Name Unknown Organization [facility] Address [address] [place] [address] Care Team Providers Care Company Dancer Name Role Phone Chapin Khan MD Unavailable [phone] Brionna Covarrubias RN Unavailable [phone] Driss Morales MD Unavailable [phone] Danya Barraza [facility] Unavailable [phone] Romi Fairbanks MD Unavailable [phone] Maximino Arredondo MD Primary Care Provider Carmen Chapman APRN GAS APPLIANCE SERVICER Unavailable + Danya Barraza [facility] Unavailable [phone] Jeanette French RN Unavailable [phone] Tammy Greenberg MD Unavailable [phone] Reason for Visit * Reason Comments New Patient kidney transplant ev al * CV Cardio consult (Routine: Next available opening) - Closed Specialty Diagnoses / Procedures Referred By Sommer t Referred To Contact Cardiovascular Disease Diagnoses Pre-transplant evaluation for kidney transplant Organ transplant candidate Essential hypertension End stage renal disease (H) Delroy Gore, DIRECTOR UTILIZATION MANAGEMENT GAS APPLIANCE SERVICER [address] [place] [address] Referral ID Status Reason Start Date Expiration Date Visits Re quested Visits Authorized [id number] Closed 02/24/2022 02/24/2023 1 1 Encounter Details Date Type Department Care Team (Late st Contact Info) Description 03/17/2022 11:00 AM LEAD APPLICATION ARCHITECT Office Visit [facility] [address] [address] Delroy Gore APRN [address] [address] Tammy Greenberg, [address] [place] [address] Pre-transplant evaluation for kidney transplant; Organ transplant candidate; Essential hypertension; End stage renal disease (H) Social History Tobacco Use Types Packs/Day [...] Coronavirus/COVID-19? No / Unsure 03/17/2022 9:55 AM LEAD APPLICATION ARCHITECT documented as of this encounter Last Filed Vital Signs Vital Sign Reading Time Taken Comments Blood Pressure 179/84 03/17/2022 10:02 AM LEAD APPLICATION ARCHITECT Pulse 96 03/17/2022 10:02 AM LEAD APPLICATION ARCHITECT Temperature - - Respiratory Rate - - Oxygen Saturation 100% 03/17/2022 10: 02 AM LEAD APPLICATION ARCHITECT Inhaled Oxygen Concentration - - Weight 82.1 kg (181 lb 1.6 oz) 03/17/19 23 10:02 AM LEAD APPLICATION ARCHITECT w/o shoes Height 175.4 cm (5' 9.06) 03/17/2022 1 0:02 AM LEAD APPLICATION ARCHITECT w/o shoes Body Mass Index 26.7 03/17/2022 10:02 AM LEAD APPLICATION ARCHITECT documented in this encounter Patient Instructions * Patient Instructions* Hermilo Blanchard LPN - 03/17/2022 10:30 AM LEAD APPLICATION ARCHITECT From cardiology standpoint, cleared to proceed with transplant evaluation. APPLICATION ARCHITECT documented in this encounter Progress Notes * Tammy Greenberg MD - 03/17/2022 11:00 AM CST SUBJECTIVE: Moisés Whelan is a 62 year old male who presents for renal transplant evaluation. He is currently on hemodialysis for about 3 years as per history. As per patient he is active and had no cardiac symptoms. Do have occasional shortness of breath. Past medical history is significant for Crohn's dz, HTN, paroxysmal atrial fibrillation and CKD on HD (started 11/2019). He had an NSTEMI in 11/2019 without coronary angiogram (trop 77) and had inferior hypokinesis noted on TTE, normal stress test. Current cardiac medications are carvedilol 12.5 mg twice a day, amlodipine 10 mg daily and simvastatin 20 mg daily.. No diabetes. Patient is a current smoker planning to quit. Patient Active Problem List Diagnosis Date Noted ??? IPMN (intraductal papillary mucinous neoplasm) 05/01/2021 Priority: Medium ??? Crohn's disease of large intestine (H) 01/06/2021 Priority: Medium ??? ESRD (end stage renal disease) (H) 06/10/2020 Priority: Medium Added automatically from request for surgery [id number] ??? Organ transplant candidate 06/10/2020 Priority: Medium Added automatically from request for surgery [id number] ??? NSTEMI (non-ST elevated myocardial infarction) (H) 06/10/2020 Priority: Medium ??? Atrial fibrillation (H) 06/10/2020 Priority: Medium ??? Benign essential hypertension 06/10/2020 Priority: Medium ??? Acquired cyst of kidney 06/07/2020 Priority: Medium . Current Outpatient Medications Medication Sig ??? amLODIPine (NORVASC) 10 MG tablet ??? calcitRIOL (ROCALTROL) 0.5 MCG capsule 1.5 mcg daily ??? calcium acetate (CALPHRON) 667 MG TABS tablet 2,668 mg 3 times daily ??? carvedilol (COREG) 12.5 MG tablet Take 12.5 mg by mouth 2 times daily ??? folic acid (FOLVITE) 1 MG tablet Take 1 mg by mouth every morning ??? lidocaine-prilocaine (EMLA) 2.5-2.5 % external cream three times a week Wednesday, Wednesday, Wednesday ??? multivitamin RENAL (MULTIVITAMIN RENAL) 1 MG capsule every morning ??? omeprazole (PRILOSEC) [address] capsule Take 20 mg by mouth every morning ??? simvastatin (ZOCOR) 20 MG tablet Take 20 mg by mouth every morning ??? ustekinumab (STELARA) 90 MG/ML Inject 1 ml ( 90 mg) subcutaneous every 4 weeks. ??? bisacodyl (DULCOLAX) 5 MG EC tablet Take 2 tablets at 3 pm the day before your procedure. If your procedure is before 11 am, take 2 additional tablets at 11 pm. If your procedure is after 11 am, take 2 additional tablets at 6 am. For additional instructions refer to your colonoscopy prep instructions. (Patient not taking: Reported on 03/17/2022) ??? polyethylene glycol (GOLYTELY) 236 g suspension The night before the exam at 6 pm drink an 8-ounce glass every 15 minutes until the jug is half empty. If you arrive before 11 AM: Drink the other half of the Golytely jug at 11 PM night before procedure. If you arrive after 11 AM: Drink the otherhalf of the Golytely jug at 6 AM day of procedure. For additional instructions refer to your colonos copy prep instructions. (Patient not taking: Reported on 03/17/2022) ??? ustekinumab (STELARA) 90 MG/ML Inject 1 ml ( 90 mg) subcutaneous every 8 weeks. (Patient not taking: Reported on 03/17/2022) Current Facility-Administered Medications Medication ??? lidocaine 1% with EPINEPHrine 1:100,000 injection 3 mL Past Medical History: Diagnosis Date ??? Aortic [...] Surgeon: Luke Carvalho MD; Location: HEART CARDIAC DIETARY TECH ??? ESOPHAGOSCOPY, GASTROSCOPY, DUODENOSCOPY (EGD), COMBINED N/A [...] Shortness of breath Social History Socioeconomic History ??? Marital status: Spouse name: Not on file ??? Number of children: 1 ??? Years of education: Not on file ??? Highest education level: Not on file Occupational History ??? 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 Smoking status: Every Day Packs/day: 0.25 Years: 50.00 Pack years: 12.50 Types: Cigarettes Last attempt to quit: 12/04/2019 Years since quittin.2 ??? Smokeless tobacco: Never Substance and Sexual Activity ??? Alcohol use: Yes Comment: rare ??? Drug use: Not Currently ??? Sexual activity: Not on file Other Topics Concern ??? Parent/sibling w/ CABG, [place] or angioplasty before 65F 55M? Not Asked [...] of ??? Thrombosis No family hx of REVIEW OF SYSTEMS: General: negative, fever, chills, night sweats Skin: negative, acne, rash and scaling Eyes: negative, double vision, eye pain and photophobia Ears/Nose/Throat: negative, nasal congestion and purulent rhinorrhea Respiratory: No dyspnea on exertion, No cough, No hemoptysis and negative Cardiovascular: negative, palpitations, tachycardia, irregular heart beat, chest pain, exertional chest pain or pressure, paroxysmal nocturnal dyspnea, dyspnea on exertion and orthopnea OBJECTIVE: Blood pressure (!) 179/84, pulse 96, height 1.754 m (5' 9.06), weight 82.1 kg (181 lb 1.6 oz), SpO2 100 %. General Appearance: alert and no distress Head: Normocephalic. No masses, lesions, tenderness or abnormalities Eyes: conjuctiva clear, PERRL, EOM intact Ears: External ears normal. Canals clear. TM's normal. Nose: Nares normal Mouth: normal Neck: Supple, no cervical adenopathy, no thyromegaly Lungs: clear to auscultation Cardiac: A. fib. No murmur. ASSESSMENT/PLAN: Patient here for renal transplant evaluation. Currently patient is on hemodialysis for the past 3 years. As per patient he is not very active but do have occasional shortness of breath but no other cardiac symptoms. Cardiac risk factors are hypertension, hyperlipidemia and current smoking. No diabetes or prematurecoronary artery disease in family. Patient with prior history of atrial fibrillation but not on anticoagulation currently. EKG reviewed normal sinus rhythm. LVH by voltage. Prior echocardiogram showed normal biventricular function. Mild to moderate mitral insufficiency otherwise unremarkable. Because of prior history of NSTEMI with peak troponin of 77 patient had a coronary angiogram on 07/09/2020 which is shown below. ?? Coronary angiogram showed normal coronary arteries except 30% proximal RCA stenosis. Patient had a recent coronary angiogram showing nonflow limiting lesions no additional testing is needed at this time. But will need a repeat echocardiogram to assess mitral regurgitation as well as possible stress test in future.\ Patient may be placed on the waiting list as he do not have any potential donors available. Will need follow-up in 1 year with a repeat echocardiogram. Total visit duration 60 minutes. This included [id number] interview, physical exam, chart review,review of Care Everywhere, EKGs, echocardiogram coronary angiogram and documentation. APPLICATION ARCHITECT documented in this encounter Nursing Notes * Bryn Monzon - 03/17/2022 11:00 AM CST Chief Complaint Patient presents with ??? New Patient kidney transplant eval Vitals were taken and medications reconciled. Bryn Monzon, [place] 10:07 AM APPLICATION ARCHITECT documented in this encounter Plan of Treatment Upcoming Encounters Date Type Department Care Team (Late st Contact Info) Description 04/01/2023 1:15 PM LEAD APPLICATION ARCHITECT Office Visit [address] [phone] Yolanda Wilkerson PA-C [address] [place] [address] [phone] 07/13/2023 8:00 AM CDT Virtual Visit [facility] [address] 4th [place] [phone] Deuce Majano PA-C [address] [place] [address] [phone] documented as of this encounter Visit Diagnoses Diagnosis Pre-transplant evaluation for kidney transplant Organ transplant candidate Awaiting organ transplant status Essential hypertension Unspecified essential hypertension End stage renal disease (H) End stage renal disease documented in this encounter Additional Health Concerns Infection Onset Date Last Indicated Resolved Time Recovered COVID 01/16/2022 01/16/2022 04/01/2022 1 1:39 PM LEAD APPLICATION ARCHITECT documented as of this encounter Care Teams Company Dancer Relationship Specialty Start Date End Date Maximino Arredondo MD [address] [place] [address] PCP - General Family Medicine 04/02/21 Chapin Khan MD [address] [place] [address] [phone] Urology 05/10/20 Brionna Covarrubias, RN Registered Nurse Oncology 05/10/20 09/01/22 Driss Morales MD [address] [place] [address] [phone] Assigned Surgical Provider 11/17/20 04/10/22 Danya Barraza, [facility] [address] [place] [address] [phone] Pharmacist Pharmacist Industrial Maintenance Technician 12/25/20 Romi Fairbanks MD [address] [phone] Assigned Gastroenterology Provider 01/05/21 06/12/22 Carmen Chapman APRN [facility] [address] [place] [address] Assigned PCP 04/27/21 03/27/22 Danya Barraza [facility] [address] [place] [address] [phone] Assigned MTM Pharmacist 11/12/21 06/26/22 Jeanette French, FATOUMATA [address] [place] [address] [phone] Specialty Inpatient Auditor Gastroenterology 12/30/21 Tammy Greenberg MD [address] [place] [address] [address] [place], [place] 677315 Cardiovascular Disease 02/24/22 documented as of this encounter
--- OUTSIDE RECORDS SUMMARY | 2023-03-14 02:42 | XMS_ITS | Encounter Summary ---
Author Name Unknown Organization [facility] Address [address] [place] [address]. [place] [address] Care Team Providers Care End Polisher Name Role Phone Chapin Khan MD Unavailable [phone] Brionna Covarrubias RN Unavailable [phone] Driss Morales MD Unavailable [phone] Danya Barraza [facility] Unavailable Romi Fairbanks MD Unavailable [phone] Maximino Arredondo MD Primary Care Provider Carmen Chapman APRN CATTLE TESTER Unavailable + Danya Barraza [facility] Unavailable Jeanette French RN Unavailable [phone] Tammy Greenberg MD Unavailable [phone] Reason for Visit * Reason Comments Consult US (7:40FSH; 9:45WRO ) Ref by Taz Morales CNP PODIATRY TEACHER // Dr. Barnard for fistula creation; dialyzes MWF at [place] via [facility] Encounter Details Date Type Department Care Team (Late st Contact Info) Description 03/19/2022 9:45 AM CHRONOMETER REPAIRER Office Visit [facility] [place] [address] [place] [place] [address] Genaro Palacios MD [address] [address] ESRD (end stage renal disease) on dialysis (H) (Primary Dx); AVF (arteriovenous fistula) (H); Occlusion of left subclavian vein (H) Social History Tobacco Use Types Packs/Day [...] Coronavirus/COVID-19? No / Unsure 03/19/2022 6:43 AM CHRONOMETER REPAIRER documented as of this encounter Last Filed Vital Signs Vital Sign Reading Time Taken Comments Blood Pressure 155/73 03/19/2022 8:01 AM CHRONOMETER REPAIRER Pulse 88 03/19/2022 8:01 AM CHRONOMETER REPAIRER Temperature - - Respiratory Rate - - Oxygen Saturation - - Inhaled Oxygen Concentration - - Weight - - Height - - Body Mass Index - - documented in this encounter Progress Notes * Genaro Palacios MD - 03/19/2022 9:45 AM CST Images from the original note were not included. [facility] Moisés Whelan has end-stage renal disease and comes today for evaluation of permanent hemodialysis access. Dialyzes at [facility] unit [id number] Has a left upper arm fistula. Patent fistula itself has been working well but he notices increased swelling in his hand. He has had 2 attempts at opening up the subclavian vein which was not successful. Swelling is present but not severe though his arms at least twice the diameter of the dominant right arm. PMH: Medications: Norvasc, Zocor, calcium acetate, Prilosec Allergies: Lisinopril Medical: Hypertension Hyperlipidemia on statin History of Crohn's disease--large intestine History of NSTEMI and atrial fibrillation History aortic dissection Intraductal papillary mucinous neoplasm of pancreas GERD Known occlusion left subclavian vein. Unable to recannulate on 02/27/2022 venogram. Review of fistulogram reveals a patent left upper arm brachial cephalic fistula with occlusion of the medial cephalic vein and medial subclavian vein. Internal jugular vein and innominate vein fill via collaterals and appear to be relatively normal diameter. This was also documented on the fistulogram on 01/15/2022 but they could not pass to the occluded subclavian vein. Exam: Alert and appropriate. Normal affect. Quite pleasant. Blood pressure 155/73 right arm. Pulse 88 regular HEENT= full range of motion. Thin Chest = clear. Easily palpable left intraclavicular cephalic vein fistul a Cardiovascular= regular rate Left arm is swollen down to the digits. Full range of motion. Well-developed left upper arm fistula with strong pulse. Vein mapping today revealed smaller veins in the right arm. Left fistula averages approximately 10 mm in diameter. IMPRESSION: Left arm swelling due to left subclavian vein occlusion that cannot be reopened. Has extensive collaterals which fill into the jugular vein which appears to be patent otherwise. I would recommend salvaging his fistula with an outflow revision from the infraclavicular cephalic vein portion to the jugular vein with a 10 mm thin-walled ringed PTFE graft and this is been discussed with the patient. Would not ligate any collaterals since they do increase the outflow of the fistula. This should resolve his arm swelling also. Risks and benefits were discussed with the patient. This would be performed under general anesthetic with likely 1 day stay in the hospital. They would be able to continue using the fistula immediately postoperatively. 35 minutes with patient today including review of prior fistulograms. Genaro Palacios MD This note was created using [employer] voice recognition software which may result in customer contact representative errors. CC: [facility] [place] [facility] unit Dr Barnard NOMETER REPAIRER * Sonal Galindo - 03/19/2022 9:[address] [facility] Patient is here for a consult to discuss AV fistula. Pt is currently taking no meds that would impact our treatment plan. BP (!) 155/73 (BP Location: Right arm, Patient Position: Chair, Cuff Size: Adult Regular) Pulse 88 The provider has been notified that the patient has no concerns. Questions patient would like addressed today are: N/A. Refills are needed: N/A Has homecare services and agency name: Hailey Galindo MA NOMETER REPAIRER documented in this encounter Nursing Notes * Brionna Nelson RN - 03/19/2022 9:45 AM CST Patient Education Procedure: Left upper arm fistula outflow revision from cephalic vein to jugular vein with 10mm thin-walled ringed PTFE graft Diagnosis: AVF with left subclavian vein occlusion Anticoagulation Instruction: None Pre-Operative Physical Exam: You need to have a pre-op physical exam within 30 days of your procedure. Your procedure may be cancelled if you do not have a current History and Physical. Call your PCP's office to schedule. Allergies: Updated in Epic Bowel Prep: n/a NPO for solid 8 hours prior to arrival time. NPO for clear liquids 2 hours prior to arrival time. Post Procedure Education: [facility] patient post-procedure fact sheet reviewed with patient. Showering instructions reviewed: Yes Learner(s):patient Method: Listening, Reading Barriers to Learning:No Barrier Outcome: Patient did verbalize understanding of above education. LISA Gates, RN-[facility] [place] NOMETER REPAIRER documented in this encounter Plan of Treatment Upcoming Encounters Date Type Department Care Team (Late st Contact Info) Description 04/01/2023 1:15 PM CHRONOMETER REPAIRER Office Visit [facility] [address] [place] [phone] Yolanda Wilkerson, RADHA [address] [place] [address] 07/13/2023 8:00 AM CDT Virtual Visit [facility] [address] 4th [place] [phone] Deuce Majano PA-C [address] [place] [address] [phone] documented as of this encounter Visit Diagnoses Diagnosis ESRD (end stage renal disease) on dialysis (H)- Primary End stage renal disease AVF (arteriovenous fistula) (H24) Arteriovenous fistula, acquired Occlusion of left subclavian vein (H) Acute venous embolism and thrombosis of subclavian veins documented in this encounter Additional Health Concerns Infection Onset Date Last Indicated Resolved Time Recovered COVID 01/16/2022 01/16/2022 04/01/2022 1 1:39 PM CHRONOMETER REPAIRER documented as of this encounter Care Teams End Polisher Relationship Specialty Start Date End Date Maximino Arredondo MD [address] [place] [address] PCP - General Family Medicine 04/02/21 Chapin Khan MD [address] [place] [address] Urology 05/10/20 Brionna Covarrubias, RN Registered Nurse Oncology 05/10/20 09/01/22 Driss Morales MD [address] [place] [address] Assigned Surgical Provider 11/17/20 04/10/22 Danya Barraza [facility] [address] [place] [address] Pharmacist Pharmacist Mover 12/25/20 Romi Fairbanks MD [address] [address] Assigned Gastroenterology Provider 01/05/21 06/12/22 Carmen Chapman APRN [facility] [address] [place] [address] Assigned PCP 04/27/21 03/27/22 Danya Barraza [facility] [address] [place] [address] Assigned MTM Pharmacist 11/12/21 06/26/22 Jeanette French, RN [address] [place] [address] [phone] Specialty Security Services Manager Gastroenterology 12/30/21 Tammy Greenberg MD [address] [place] [address] [address] [place] [address] Cardiovascular Disease 02/24/22 documented as of this encounter
--- OUTSIDE RECORDS SUMMARY | 2023-03-14 02:42 | XMS_ITS | Encounter Summary ---
Author Name Unknown Organization [facility] Address [address] [place] [address] Care Team Providers Care Cutlet Maker Pork Name Role Phone Chapin Khan MD Unavailable + [phone] Brionna Covarrubias RN Unavailable [phone] Driss Morales MD Unavailable [phone] Danya Barraza [facility] Unavailable +1- Romi Fairbanks MD Unavailable [phone] Maximino Arredondo MD Primary Care Provider [phone] Carmen Chapman APRN FATS AND OILS LOADER Unavailable + Danya Barraza [facility] Unavailable +1- Danya Pena Unavailable Unavailable Jeanette French RN Unavailable [phone] Tammy Greenberg MD Unavailable [phone] Genaro Palacios MD Unavailable [phone] Claude Rucker MD Unavailable [phone] Delroy Gore APRN FATS AND OILS LOADER Unavailable [phone] Chapin Ruvalcaba MD Unavailable [phone] Romi Fairbanks MD Unavailable +[phone] Danya Barraza [facility] Unavailable +1- Deuce Majano PA-C Unavailable [phone] Chapin Ruvalcaba MD Unavailable [phone] Encounter Details Date Type Department Care Team (Late st Contact Info) Description 01/02/2022 MyC Medical Advice [facility] [address] [place] [address] [facility] Social History Tobacco Use Types Packs/Day Years [...] PHQ-2 Answer Date Recorded PHQ-2 Score 0 04/17/2021 Sex and Gender Information Value Date Recorded Sex Assigned at Male 05/02/2020 10:54 AM CDT Gender Identity Male 05/02/2020 10:54 AM CDT Sexual Orientation Straight 05/02/2020 10 :54 AM CDT COVID-19 Exposure Response Date Recorded In the last 10 days, have yo u been in contact with someone who was confirmed or suspected to have Coronavirus/COVID-19? No / Unsure 01/02/2022 9:53 AM DRILL PRESS SET UP OPERATOR RADIAL documented as of this encounter Plan of Treatment Upcoming Encounters Date Type Department Care Team (Late st Contact Info) Description 04/01/2023 1:15 PM DRILL PRESS SET UP OPERATOR RADIAL Office Visit [address] [address] Yolanda Wilkerson PA-C [address] [place] [address] 07/13/2023 8:00 AM CDT Virtual Visit [facility] [address] 4th [place] [address] Deuce Majano PA-C [address] [place] [address] 935745 documented as of this encounter Visit Diagnoses Not on filedocumented in this encounter Additional Health Concerns Infection Onset Date Last Indicated Resolved Time COVID-19 01/02/2022 01/02/2022 01/16/2022 7:58 AM DRILL PRESS SET UP OPERATOR RADIAL Recovered COVID 01/16/2022 01/16/2022 04/01/2022 1 1:39 PM DRILL PRESS SET UP OPERATOR RADIAL Rule Out C-difficile 03/10/2023 03/10/2023 024 5:57 PM DRILL PRESS SET UP OPERATOR RADIAL documented as of this encounter Care Teams Cutlet Maker Pork Relationship Specialty Start Date End Date Maximino Arredondo MD [address] [place] [phone] PCP - General Family Medicine 04/02/21 Chapin Khan MD [address] [place] [address] [phone] Urology 05/10/20 Brionna Covarrubias, FATOUMATA Registered Nurse Oncology 05/10/20 09/01/22 Driss Morales MD [address] [place] [address] 146285 Assigned Surgical Provider 11/17/20 04/10/22 Danya Barraza [facility] [address] [address] [phone] Pharmacist Pharmacist Cement Patcher 12/25/20 Romi Fairbanks MD [facility] [address] [place] [address] Assigned Gastroenterology Provider 01/05/21 06/12/22 Carmen Chapman APRN FATS AND OILS LOADER [address] [place] [address] Assigned PCP 04/27/21 03/27/22 Danya Barraza, [facility] [address] [address] Assigned MTM Pharmacist 11/12/21 Danya Pena Assigned Heart and Vascular Provider 12/13/21 01/02/22 Jeanette French RN [address] [place] [address] [phone] Specialty Kitchen Steward Gastroenterology 12/30/21 Tammy Greenberg MD [address] [place] [address] [address] [place], [place] 185845 Cardiovascular Disease 02/24/22 [place] [address] [place] [address] [address] [place], [place] 486645 Assigned Heart and Vascular Provider 03/28/22 Claude Rucker MD [address] [place] [address] 765425 Assigned Surgical Provider 04/11/22 Delroy Gore APRN FATS AND OILS LOADER [address] [address] Assigned Nephrology Provider 04/25/22 Chapin Ruvalcaba MD [address] [facility] [address] [place], [place] 9142[address] Assigned Gastroenterology Provider 06/13/22 06/19/22 Romi Fairbanks MD [facility] [address] [place], [place] 878895 Assigned Gastroenterology Provider 06/20/22 08/14/22 [facility] [address] [place] [address] Assigned [place] Pharmacist 12/05/22 Deuce Majano PA-C [address] [place] [address] [phone] Assigned Gastroenterology Provider 01/23/23 02/05/23 Chpain Ruvalcaba MD [address] [facility] [address] [address] [place] [address] 484905 Assigned Gastroenterology Provider 02/06/23 documented as of this encounter
--- OUTSIDE RECORDS SUMMARY | 2023-03-14 02:42 | XMS_ITS | Encounter Summary ---
Author Name Unknown Organization [facility] Address [address] [place] [address]. [place] [address] Care Team Providers Care Home Support Worker Name Role Phone Chapin Khan MD Unavailable [phone] Brionna Covarrubias RN Unavailable [phone] Driss Morales MD Unavailable [phone] Danya Barraza [facility] Unavailable Romi Fairbanks MD Unavailable [phone] Maximino Arredondo MD Primary Care Provider [phone] Carmen Chapman APRN COMMUTATOR TESTER Unavailable + Danya Barraza [facility] Unavailable eJanette French RN Unavailable [phone] Tammy Greenberg MD Unavailable [phone] Genaro Palacios MD Unavailable [phone] Claude Rucker MD Unavailable [phone] Delroy Gore APRN COMMUTATOR TESTER Unavailable [phone] Encounter Details Date Type Department Care Team (Late st Contact Info) Description 02/23/[address] [facility] [address] [place] [address] Outside, Provider Social History Tobacco Use Types [...] Coronavirus/COVID-19? No / Unsure 04/15/2022 10:35 PM METAL ROASTER documented as of this encounter Plan of Treatment Upcoming Encounters Date Type Department Care Team (Late st Contact Info) Description 04/01/2023 1:15 PM METAL ROASTER Office Visit [address] [phone] Yolanda Wilkerson PA-C [address] [place] [address] [phone] 07/13/2023 8:00 AM CDT Virtual Visit [facility] [address] [place] [address] Deuce Majano PA-C [address] [place] [address] 773605 documented as of this encounter Visit Diagnoses Not on filedocumented in this encounter Additional Health Concerns Infection Onset Date Last Indicated Resolved Time Recovered COVID 01/16/2022 01/16/2022 04/01/2022 1 1:39 PM METAL ROASTER documented as of this encounter Care Teams Home Support Worker Relationship Specialty Start Date End Date Maximino Arredondo MD [facility] [place] [address] PCP - General Family Medicine 04/02/21 Chapin Khan MD [address] [place] [address] Urology 05/10/20 Brionna Covarrubias, RN Registered Nurse Oncology 05/10/20 09/01/22 Driss Morales MD [address] [place] [address] [phone] Assigned Surgical Provider 11/17/20 04/10/22 Danya Barraza [facility] [address] [place] [address] [phone] Pharmacist Pharmacist In Classroom Tutor 12/25/20 Romi Fairbanks MD [address] [address] Assigned Gastroenterology Provider 01/05/21 06/12/22 Carmen Chapman APRN COMMUTATOR TESTER [address] [place] [address] Assigned PCP 04/27/21 03/27/22 Danya Barraza [facility] [address] [place] [address] Assigned MTM Pharmacist 11/12/21 06/26/22 Jeanette French, RN [address] [place] [address] Specialty Motion Picture Set Up Worker Gastroenterology 12/30/21 Tammy Greenberg MD [address] [place] [address] [address] [place], [place] 184215 Cardiovascular Disease 02/24/22 Genaro Palacios MD [address] [facility] [address] [place] [address] Assigned Heart and Vascular Provider 03/28/22 Claude Rucker MD [address] [place] [address] 536385 Assigned Surgical Provider 04/11/22 Delroy Gore, FIRE PREVENTION INSPECTOR COMMUTATOR TESTER [address] [place], [place] 327045 Assigned Nephrology Provider 04/25/22 documented as of this encounter
--- OUTSIDE RECORDS SUMMARY | 2023-03-14 02:43 | XMS_ITS | Encounter Summary ---
Author Name Unknown Organization [facility] Address [address] [place] [address] Care Team Providers Care Inside Parts Sales Name Role Phone Chapin Khan MD Unavailable [phone] Brionna Covarrubias RN Unavailable [phone] Driss Morales MD Unavailable [phone] Danya Barraza [facility] Unavailable +1- Romi Fairbanks MD Unavailable [phone] Maximino Arredondo MD Primary Care Provider [phone] Carmen Chapman APRN BELT BUILDER HELPER Unavailable + Danya Barraza [facility] Unavailable +1- Danya Pena Unavailable Unavailable Jeanette French RN Unavailable [phone] Tammy Greenberg MD Unavailable [phone] Genaro Palacios MD Unavailable [phone] Claude Rucker MD Unavailable [phone] Dleroy Gore APRN BELT BUILDER HELPER Unavailable [phone] Chapin Ruvalcaba MD Unavailable [phone] Romi Fairbanks MD Unavailable +[phone] Danya Barraza [facility] Unavailable +1- Deuce Majano PA-C Unavailable [phone] Chapin Ruvalcaba MD Unavailable [phone] Encounter Details Date Type Department Care Team (Late st Contact Info) Description 12/31/2021 [facility] Scheduling [address] [place] [address] Stephon Coughlin MD [address] [place] [address] Encounter for laboratory testing for COVID-19 virus Social History Tobacco Use Types Packs/Day Years [...] Coronavirus/COVID-19? No / Unsure 01/02/2022 9:53 AM COMMUNITY YOUTH SECRETARY documented as of this encounter Plan of Treatment Upcoming Encounters Date Type Department Care Team (Late Contact Info) Description 04/01/2023 1:15 PM COMMUNITY YOUTH SECRETARY Office Visit [facility] [address] [place] [phone] Yolanda Wilkerson PA-C [address] [place] [address] 07/13/2023 8:00 AM CDT Virtual Visit [facility] [place] [phone] [facility] 4th [place] [phone] Deuce Majano PA-C [address] [place] [address] 399165 documented as of this encounter Results * (ABNORMAL) Asymptomatic COVID-19 Virus (Coronavirus) by PCR Nose (01/02/2022 9:54 AM COMMUNITY YOUTH SECRETARY) SARS CoV2 PCR Positive(A ) Negative 01/03/2022 12:20 PM COMMUNITY YOUTH SECRETARY [facility] Comment:POSITIVE: SARS-CoV-2 (COVID-19) RNA detected, presumed positive. Swab NASAL STRUCTURE / Unknown Non-blood Collection / Unknown 01/02/2022 9:54 AM COMMUNITY YOUTH SECRETARY 01/02/2022 9:55 AM COMMUNITY YOUTH SECRETARY Narrative [facility] - 01/03/2022 12:20 PM COMMUNITY YOUTH SECRETARY Testing was performed using the chuck SARS-CoV-2 assay on the chuck 6800 System. This test should be ordered for the detection of SARS-CoV-2 in individuals who meet SARS-CoV-2 clinical and/or epidemiological criteria. Test performance is unknown in asymptomatic patients. This test is for in vitro diagnostic use under the FDA EUA for laboratories certified under CLIA to perform high and/or moderate complexity testing. This test has not been FDA cleared or approved. A negative result does not rule out the presence of PCR inhibitors in the specimen or target RNA in concentration below the limit of detection for the assay. The possibility of a false negative should be considered if the patient's recent exposure or clinical presentation suggests COVID-19. This test was validated by the [facility]. This laboratory is certified under the Clinical Laboratory Improvement Amendments of 1988 (CLIA-88) as qualified to perform high and/or moderate complexity laboratory testing. Stephon Coughlin MD LAB - MICRO GENERAL ORDERABLES [facility] Inf. Diseases Diag. Lab [address] [facility], Room [address] [place] [id number] [phone] documented in this encounter Visit Diagnoses Diagnosis Encounter for laboratory testing for COVID-19 virus documented in this encounter Additional Health Concerns Infection Onset Date Last Indicated Resolved Time COVID-19 01/02/2022 01/02/2022 01/16/2022 7:58 AM COMMUNITY YOUTH SECRETARY Recovered COVID 01/16/2022 01/16/2022 04/01/2022 1 1:39 PM COMMUNITY YOUTH SECRETARY Rule Out C-difficile 03/10/2023 03/10/2023 024 5:57 PM COMMUNITY YOUTH SECRETARY documented as of this encounter Care Teams Inside Parts Sales Relationship Specialty Start Date End Date [place] [address] PCP - General Family Medicine 04/02/21 Chapin Khan MD [address] [place] [address] [phone] Urology 05/10/20 Brionna Covarrubias, RN Registered Nurse Oncology 05/10/20 09/01/22 Driss Morales MD [address] [place] [address] Assigned Surgical Provider 11/17/20 04/10/22 Danya Barraza, [facility] [address] [place] [address] Pharmacist Pharmacist Ballast Cleaning Machine Operator 12/25/20 Romi Fairbanks MD [facility] [address] 126185 Assigned Gastroenterology Provider 01/05/21 06/12/22 Carmen Chapman APRN BELT BUILDER HELPER [address] [place] [address] Assigned PCP 04/27/21 03/27/22 Danya Barraza [facility] [address] [place] [address] 328235 Assigned MTM Pharmacist 11/12/21 Danya Pena Assigned Heart and Vascular Provider 12/13/21 01/02/22 Jeanette French RN [address] [place] [address] [phone] Specialty Opal Miner Gastroenterology 12/30/21 Tammy Greenberg MD [address] [place] [address] [address] [place], [place] 399[address] Cardiovascular Disease 02/24/22 Genaro Palacios MD [address] [place] [address] [phone] Assigned Heart and Vascular Provider 03/28/22 Claude Rucker MD [address] [place] [address] 269885 Assigned Surgical Provider 04/11/22 Delroy Gore APRN BELT BUILDER HELPER [address] [place] [address] 910175 Assigned Nephrology Provider 04/25/22 Chapin Ruvalcaba MD [facility] [address] [place] [address] Assigned Gastroenterology Provider 06/13/22 06/19/22 Romi Fairbanks MD [facility] [address] [place] [address] Assigned Gastroenterology Provider 06/20/22 08/14/22 [facility] [address] [place] [address] Assigned [place] Pharmacist 12/05/22 Deuce Majano PA-C [address] [place] [address] Assigned Gastroenterology Provider 01/23/23 02/05/23 Chapin Ruvalcaba MD [address] [facility] [address] [place], [place] 945695 Assigned Gastroenterology Provider 02/06/23 documented as of this encounter
--- OUTSIDE RECORDS SUMMARY | 2023-03-14 02:43 | XMS_ITS | Encounter Summary ---
Author Name Unknown Organization [facility] Address [address] [place] [address]. [place] [address] Care Team Providers Care Small Arms Repairer Name Role Phone Chapin Khan MD Unavailable +[phone] Brionna Covarrubias RN Unavailable [phone] Driss Morales MD Unavailable +[phone] Danya Barraza [facility] Unavailable +[phone] Romi Fairbanks MD Unavailable [phone] Maximino Arredondo MD Primary Care Provider +[phone] Luke Carvalho MD Unavailable +[phone] Carmen Chapman APRN HAND ENGRAVER Unavailable + Sarah Heard RN Unavailable Unavailable Danya Barraza [facility] Unavailable +1- Danya Barraza [facility] Unavailable +[phone] Danya Pena Unavailable Unavailable Jeanette French RN Unavailable +[phone] Tammy Greenberg MD Unavailable +[phone] Genaro Palacios MD Unavailable +[phone] Claude Rucker MD Unavailable +[phone] Delroy Gore APRN HAND ENGRAVER Unavailable +[phone] Chapin Ruvalcaba MD Unavailable + [phone] Romi Fairbanks MD Unavailable +[phone] AlexandriaDanya oquendo [facility] Unavailable +[phone] Deuce Majano PA-C Unavailable +[phone] Chapin Ruvalcaba MD Unavailable + [phone] Encounter Details Date Type Department Care Team (Late st Contact Info) Description 09/16/2021 MyC Medical Advice [facility] [address] [place] [address] Romi Fairbanks MD [address] [address] Social History Tobacco Use Types [...] suspected to have Coronavirus/COVID-19? No / Unsure 09/13/2021 12:33 PM CDT documented as of this encounter Plan of Treatment Upcoming Encounters Date Type Department Care Team (Late st Contact Info) Description 04/01/2023 1:15 PM INSIDE WIRER Office Visit [facility] [address] [place] [phone] Yolanda Wilkerson PA-C [address] [place] [address] [phone] 07/13/2023 8:00 AM CDT Virtual Visit [facility] [address] 4th [place] [phone] Deuce Majano PA-C [address] [place] [address] documented as of this encounter Visit Diagnoses Not on filedocumented in this encounter Additional Health Concerns Infection Onset Date Last Indicated Resolved Time COVID-19 01/02/2022 01/02/2022 01/16/2022 7:58 AM INSIDE WIRER Recovered COVID 01/16/2022 01/16/2022 04/01/2022 1 1:39 PM INSIDE WIRER Rule Out C-difficile 03/10/2023 03/10/2023 024 5:57 PM INSIDE WIRER documented as of this encounter Care Teams Small Arms Repairer Relationship Specialty Start Date End Date [place] [address] PCP - General Family Medicine 04/02/21 Chapin Khan MD [address] [place] [address] 25263 Urology 05/10/20 Brionna Covarrubias, RN Registered Nurse Oncology 05/10/20 09/01/22 Driss Morales MD [address] [place] [address] [phone] Assigned Surgical Provider 11/17/20 04/10/22 Danya Barraza [facility] [address] [place] [address] 84503 Pharmacist Pharmacist Accounts Receivable Assistant 12/25/20 Romi Fairbanks MD [address] [address] Assigned Gastroenterology Provider 01/05/21 06/12/22 Luke Carvalho MD [address] [place] [address]3543 Assigned Heart and Vascular Provider 03/30/21 12/12/21 Carmen Chapman APRN CNP [facility] [place], [place] [phone] Assigned PCP 04/27/21 03/27/22 Sarah Heard RN Specialty Supervisor Post Wave Gastroenterology 05/14/21 12/29/21 [facility] [address] [place] [address] 27123 Assigned MTM Pharmacist 07/12/21 [facility] [address] [place] [address] 65732 Assigned MTM Pharmacist 11/12/21 Danya Pena Assigned Heart and Vascular Provider 12/13/21 01/02/22 Jeanette French, FATOUMATA [address] [place] [address] 15745 Specialty Supervisor Post Wave Gastroenterology 12/30/21 Tammy Greenberg MD [address] [facility] [phone] Cardiovascular Disease 02/24/22 Genaro Palacios MD [address] [facility] [address] [place], [place] 260635 Assigned Heart and Vascular Provider 03/28/22 Claude Rucker MD [address] [place] [address] 391935 Assigned Surgical Provider 04/11/22 Delroy Gore APRN [facility] [address] [place] [address] [phone] Assigned Nephrology Provider 04/25/22 Chapin Ruvalcaba MD [address] [facility] PWB 1E [phone] Assigned Gastroenterology Provider 06/13/22 06/19/22 Romi Fairbanks MD [facility] [address] [place], [place] 478485 Assigned Gastroenterology Provider 06/20/22 08/14/22 Danya Barraza, [facility] [address] [place], [place] 595565 Assigned MTM Pharmacist 12/05/22 Deuce Majano PA-C [address] [place] [address] 249535 Assigned Gastroenterology Provider 01/23/23 02/05/23 Chapin Ruvalcaba MD [address] [facility] [address] [place] [address] Assigned Gastroenterology Provider 02/06/23 documented as of this encounter
--- OUTSIDE RECORDS SUMMARY | 2023-03-14 02:43 | XMS_ITS | Encounter Summary ---
Author Name Unknown Organization [facility] Address [address] [place] [address] Care Team Providers Care Cell Builder Name Role Phone Chapin Khan MD Unavailable + [phone] Brionna Covarrubias RN Unavailable [phone] Driss Morales MD Unavailable +[phone] Danya Barraza [facility] Unavailable +1- Romi Fairbanks MD Unavailable +[phone] Maximino Arredondo MD Primary Care Provider [phone] Carmen Chapman APRN BROACHING MACHINE REPAIRER Unavailable + Danya Barraza [facility] Unavailable +1- Danya Pena Unavailable Unavailable Jeanette French RN Unavailable +[phone] Tammy Greenberg MD Unavailable +[phone] Genaro Palacios MD Unavailable +[phone] Claude Rucker MD Unavailable +[phone] Delroy Gore APRN BROACHING MACHINE REPAIRER Unavailable +[phone] Chapin Ruvalcaba MD Unavailable +[phone] Romi Fairbanks MD Unavailable +[phone] Danya Barraza [facility] Unavailable +1- Deuce Majano PA-C Unavailable +[phone] Chapin Ruvalcaba MD Unavailable +[phone] Encounter Details Date Type Department Care Team (Late st Contact Info) Description 12/30/2021 MyC Medical Advice [facility] [address] [address] Jeanette French, FATOUMATA [address] [place] [address] Social History Tobacco Use Types Packs/Day [...] Coronavirus/COVID-19? No / Unsure 01/02/2022 9:53 AM ARMY HELICOPTER PILOT documented as of this encounter Plan of Treatment Upcoming Encounters Date Type Department Care Team (Late st Contact Info) Description 04/01/2023 1:15 PM ARMY HELICOPTER PILOT Office Visit [address] [phone] Yolanda Wilkerson PA-C [address] [place] [address] 07/13/2023 8:00 AM CDT Virtual Visit [facility] [address] 4th [place] [address] Deuce Majano PA-C [address] [place] [address] 333115 documented as of this encounter Visit Diagnoses Not on filedocumented in this encounter Additional Health Concerns Infection Onset Date Last Indicated Resolved Time COVID-19 01/02/2022 01/02/2022 01/16/2022 7:58 AM ARMY HELICOPTER PILOT Recovered COVID 01/16/2022 01/16/2022 04/01/2022 1 1:39 PM ARMY HELICOPTER PILOT Rule Out C-difficile 03/10/2023 03/10/2023 024 5:57 PM ARMY HELICOPTER PILOT documented as of this encounter Care Teams Cell Builder Relationship Specialty Start Date End Date Maximino Arredondo MD [address] [place] [address] PCP - General Family Medicine 04/02/21 Chapin Khan MD [address] [place] [address] 38488 Urology 05/10/20 Brionna Covarrubias, FATOUMATA Registered Nurse Oncology 05/10/20 09/01/22 Driss Morales MD [address] [place] [address] 195 [place], [place] 879835 Assigned Surgical Provider 11/17/20 04/10/22 Danya Barraza [facility] [address] [place] [address] [phone] Pharmacist Pharmacist Screw Machine Operator Single Spindle 12/25/20 Romi Fairbanks MD [address] 819015 Assigned Gastroenterology Provider 01/05/21 06/12/22 Carmen Chapman APRN BROACHING MACHINE REPAIRER [address] [place] [address] Assigned PCP 04/27/21 03/27/22 Danya Barraza [facility] [address] [place] [address] 586135 Assigned MTM Pharmacist 11/12/21 Danya Pena Assigned Heart and Vascular Provider 12/13/21 01/02/22 Jeanette French RN [address] [place] [address] [phone] Specialty Corporate Sales Trainer Gastroenterology 12/30/21 Tammy Greenberg MD [address] [place] [address] 508 [place], [place] 227105 Cardiovascular Disease 02/24/22 [place] [address] [place] [address] 440875 Assigned Heart and Vascular Provider 03/28/22 Claude Rucker MD [address] [place] [address] Assigned Surgical Provider 04/11/22 Delroy Gore APRN BROACHING MACHINE REPAIRER [address] [place] [address] Assigned Nephrology Provider 04/25/22 Cahpin Ruvalcaba MD [address] [place] [address] 575745 Assigned Gastroenterology Provider 06/13/22 06/19/22 Romi Fairbanks MD [address] 649615 Assigned Gastroenterology Provider 06/20/22 08/14/22 Danya Barraza [facility] [address] [place] [address] 836395 Assigned MTM Pharmacist 12/05/22 Deuce Majano PA-C [address] [place] [address] [phone] Assigned Gastroenterology Provider 01/23/23 02/05/23 Chapin Ruvalcaba MD [address] [place] [address] 853385 Assigned Gastroenterology Provider 02/06/23 documented as of this encounter
--- OUTSIDE RECORDS SUMMARY | 2023-03-14 02:43 | XMS_ITS | Encounter Summary ---
Author Name Unknown Organization [facility] Address [address] [place] [address]. [place] [address] Care Team Providers Care Multi Disciplined Language Analyst Name Role Phone Chapin Khan MD Unavailable [phone] Brionna Covarrubias RN Unavailable Driss Morales MD Unavailable [phone] [facility] Unavailable [phone] Romi Fairbanks MD Unavailable [phone] Maximino Arredondo MD Primary Care Provider +[phone] Luke Carvalho MD Unavailable [phone] Carmen Chapman APRN PLUMBING HARDWARE ASSEMBLER Unavailable + Sraah Heard RN Unavailable Unavailable Danya Barraza [facility] Unavailable +1- Danya Barraza [facility] Unavailable +[phone] Danya Pena Unavailable Unavailable Jeanette French RN Unavailable [phone] Tammy Greenberg MD Unavailable +[phone] Genaro Palacios MD Unavailable +[phone] Claude Rucker MD Unavailable [phone] Delroy Gore APRN PLUMBING HARDWARE ASSEMBLER Unavailable +[phone] Chapin Ruvalcaba MD Unavailable + [phone] Romi Fairbanks MD Unavailable +[phone] AlexandriaDanya oquendo John [facility] Unavailable [phone] Deuce Majano PA-C Unavailable +[phone] Chapin Ruvalcaba MD Unavailable + [phone] Encounter Details Date Type Department Care Team (Late st Contact Info) Description 04/23/2021 MyC Medical Advice Initial Department Latrice Petty RN Social History Tobacco Use Types Packs/Day [...] Exposure Response Date Recorded In the last month, have you been in contact with someone who was confirmed or suspected to have Coronavirus / COVID-19? No / Unsure 04/17/2021 11:55 AM SCIENCE WRITER documented as of this encounter Plan of Treatment Upcoming Encounters Date Type Department Care Team (Late st Contact Info) Description 04/01/2023 1:15 PM SCIENCE WRITER Office Visit [address] [address] Yolanda Wilkerson PAAnhC [address] [place] [address] 07/13/2023 8:00 AM CDT Virtual Visit [facility] [place] [address] [facility] 4th [place] [address] Deuce Majano PA-C [address] [place] [address] [phone] documented as of this encounter Visit Diagnoses Not on filedocumented in this encounter Additional Health Concerns Infection Onset Date Last Indicated Resolved Time COVID-19 01/02/2022 01/02/2022 01/16/2022 7:58 AM SCIENCE WRITER Recovered COVID 01/16/2022 01/16/2022 04/01/2022 1 1:39 PM SCIENCE WRITER Rule Out C-difficile 03/10/2023 03/10/2023 024 5:57 PM SCIENCE WRITER documented as of this encounter Care Teams Multi Disciplined Language Analyst Relationship Specialty Start Date End Date Maximino Arredondo MD [address] [place] [address] PCP - General Family Medicine 04/02/21 Chapin Khan MD [address] [place] [address] [phone] Urology 05/10/20 Brionna Covarrubias, RN Registered Nurse Oncology 05/10/20 09/01/22 Driss Morales MD [address] [place] [address] [phone] Assigned Surgical Provider 11/17/20 04/10/[address] [facility] [address] [place] [address] [phone] Pharmacist Pharmacist Embedded Nurse 12/25/20 Romi Fairbanks MD [address] [address] Assigned Gastroenterology Provider 01/05/21 06/12/22 Luke Carvalho MD [address] [place] [address] 668185 Assigned Heart and Vascular Provider 03/30/21 12/12/21 Carmen Chapman APRN PLUMBING HARDWARE ASSEMBLER [address] [place] [address] Assigned PCP 04/27/21 03/27/22 Sarah Heard, FATOUMATA Specialty Wig Comber Gastroenterology 05/14/21 12/29/[address] [facility] [address] [place] [address] 74299 Assigned MTM Pharmacist 07/12/[address] [facility] [address] [place] [address] 23900 Assigned MTM Pharmacist 11/12/21 Danya Pena Assigned Heart and Vascular Provider 12/13/21 01/02/22 Jeanette French, RN [address] [place] [address] 765215 Specialty Wig Comber Gastroenterology 12/30/21 Tammy Greenberg MD [address] [place] [address] 12138 Cardiovascular Disease 02/24/22 Genaro Palacios MD [address] [place] [address] Assigned Heart and Vascular Provider 03/28/22 Claude Rucker MD [address] [place] [address] 94670 Assigned Surgical Provider 04/11/22 Delroy Gore APRN [facility] [address] [place] [address] 95652 Assigned Nephrology Provider 04/25/22 Chapin Ruvalcaba MD [address] [place] [address] 75[address] Assigned Gastroenterology Provider 06/13/22 06/19/22 Romi Fairbanks MD [address] 736125 Assigned Gastroenterology Provider 06/20/22 08/14/22 Danya Barraza, [facility] [address] [place] [address] [phone] Assigned MTM Pharmacist 12/05/22 Deuce Majano PA-C [address] [place] [address] [phone] Assigned Gastroenterology Provider 01/23/23 02/05/23 Chapin Ruvalcaba MD [address] 420335 Assigned Gastroenterology Provider 02/06/23 documented as of this encounter
--- OUTSIDE RECORDS SUMMARY | 2023-03-14 02:43 | XMS_ITS | Encounter Summary ---
Author Name Unknown Organization [facility] Address [address] [place] [address] Care Team Providers Care Bacteriologist Soil Name Role Phone Chapin Khan MD Unavailable +[phone] Brionna Covarrubias RN Unavailable [phone] Driss Morales MD Unavailable +[phone] Danya Barraza [facility] Unavailable +[phone] Romi bonilla MD Unavailable [phone] Maximino Arredondo MD Primary Care Provider +[phone] Luke Carvalho MD Unavailable [phone] Carmen Chapman APRN INSPECTOR FABRIC Unavailable + Sarah Heard RN Unavailable Unavailable Danya Barraza [facility] Unavailable [phone] Danya Pena Unavailable Unavailable Jeanette French RN Unavailable [phone] Tammy Greenberg MD Unavailable +[phone] Genaro Palacios MD Unavailable +[phone] Claude Rucker MD Unavailable [phone] Delroy Gore APRN INSPECTOR FABRIC Unavailable Chapin Ruvalcaba MD Unavailable +[phone] Romi Fairbanks MD Unavailable +[phone] Danya Barraza [facility] Unavailable [phone] Deuce Majano PA-C Unavailable +[phone] Chapin Ruvalcaba MD Unavailable + [phone] Encounter Details Date Type Department Care Team (Late st Contact Info) Description 11/04/2021 MyC Medical Advice [facility] Urology Clinic [address] [place] [address] Ana Miller, FATOUMATA Social History Tobacco Use Types Packs/Day [...] encounter Miscellaneous Notes * Telephone Encounter - [place] Adam - 11/07/2021 1:57 PM CDT [employer] faxed order. documented in this encounter Plan of Treatment Upcoming Encounters Date Type Department Care Team (Late st Contact Info) Description 04/01/2023 1:15 PM DIRECTOR OF PLANNING Office Visit [address] [address] Yolanda Wilkerson PA-C [address] [place] [address] 749355 07/13/2023 8:00 AM CDT Virtual Visit [facility] Gastroenterology Clinic [address] [place] [phone] Deuce Majano PA-C [address] [place] [address] documented as of this encounter Visit Diagnoses Not on filedocumented in this encounter Additional Health Concerns Infection Onset Date Last Indicated Resolved Time COVID-19 01/02/2022 01/02/2022 01/16/2022 7:58 AM DIRECTOR OF PLANNING Recovered COVID 01/16/2022 01/16/2022 04/01/2022 1 1:39 PM DIRECTOR OF PLANNING Rule Out C-difficile 03/10/2023 03/10/2023 024 5:57 PM DIRECTOR OF PLANNING documented as of this encounter Care Teams Bacteriologist Soil Relationship Specialty Start Date End Date Maximino Arredondo MD [address] [place] [address] PCP - General Family Medicine 04/02/21 Chapni Khan MD [address] [place] [address] [phone] Urology 05/10/20 Brionna Covarrubias, RN Registered Nurse Oncology 05/10/20 09/01/22 Driss Morales MD [address] [place] [address] [phone] Assigned Surgical Provider 11/17/20 04/10/22 Danya Barraza, [facility] [address] [place] [address] 10889 Pharmacist Pharmacist Warehouse Administrative Assistant 12/25/20 Romi Fairbanks MD [address] [address] Assigned Gastroenterology Provider 01/05/21 06/12/22 Luke Carvalho MD [address] [place] [address] 22829 Assigned Heart and Vascular Provider 03/30/21 12/12/21 Carmen Chapman APRN CNP [address] [place] [address] Assigned PCP 04/27/21 03/27/22 Sarah Heard RN Specialty Herbologist Gastroenterology 05/14/21 12/29/21 Danya Barraza, [facility] [address] [place] [address] Assigned MTM Pharmacist 11/12/21 Danya Pena Assigned Heart and Vascular Provider 12/13/21 01/02/22 Jeanette French RN [address] [place] [address]87 Specialty Herbologist Gastroenterology 12/30/21 Tammy Greenberg MD [address] [place] [address] [place] [address] 219205 Cardiovascular Disease 02/24/22 Genaro Palacios MD [address] [place] 723705 Assigned Heart and Vascular Provider 03/28/22 Claude Rucker MD [address] [place] [address] [phone] Assigned Surgical Provider 04/11/22 Delroy Gore APRN [facility] [address] [place] [address] [phone] Assigned Nephrology Provider 04/25/22 Chapin Ruvalcaba MD [address] [place] [address] [phone] Assigned Gastroenterology Provider 06/13/22 06/19/22 Romi Fairbanks MD [address] 633305 Assigned Gastroenterology Provider 06/20/22 08/14/22 Danya Barraza, [facility] [address] [place] [address] 504115 Assigned MTM Pharmacist 12/05/22 Deuce Majano PA-C [address] [place] [address] [phone] Assigned Gastroenterology Provider 01/23/23 02/05/23 Chapin Ruvalcaba MD [address] [place] [address] 179795 Assigned Gastroenterology Provider 02/06/23 documented as of this encounter
--- OUTSIDE RECORDS SUMMARY | 2023-03-14 02:43 | XMS_ITS | Encounter Summary ---
Author Name Unknown Organization [facility] Address [address] [place] [address]. [place] [address] Care Team Providers Care Front Desk Admin Name Role Phone Chapin Khan MD Unavailable [phone] Brionna Covarrubias RN Unavailable [phone] Driss Morales MD Unavailable [phone] Danya Barraza [facility] Unavailable [phone] Romi Fairbanks MD Unavailable [phone] Maximino Arredondo MD Primary Care Provider [phone] Luke Carvalho MD Unavailable Carmen Chapman APRN MODERATE NEEDS TEACHER Unavailable + Sarah Heard RN Unavailable Unavailable Danya Barraza [facility] Unavailable +1- Danya Barraza [facility] Unavailable +[phone] Danya Pena Unavailable Unavailable Jeanette French RN Unavailable [phone] Tammy Greenberg MD Unavailable +[phone] Genaro Palacios MD Unavailable [phone] Claude Rucker MD Unavailable [phone] Delroy Gore APRN MODERATE NEEDS TEACHER Unavailable +[phone] Chapin Ruvalcaba MD Unavailable + [phone] Romi Fairbanks MD Unavailable +[phone] Madi Danyashayne Lopez [facility] Unavailable +[phone] Deuce Majano PA-C Unavailable +[phone] Chapin Ruvalcaba MD Unavailable + [phone] Encounter Details Date Type Department Care Team (Late Contact Info) Description 05/14/2021 MyC Medical Advice [facility] [address] 4[address] [place] [address] Sarah Heard RN Social History Tobacco Use Types Packs/Day [...] have Coronavirus / COVID-19? No / Unsure 05/12/2021 6:13 PM CDT documented as of this encounter Plan of Treatment Upcoming Encounters Date Type Department Care Team (Late Contact Info) Description 04/01/2023 1:15 PM FRONT DESK ADMIN Office Visit [address] [phone] Yolanda Wilkerson PA-C [address] [place] [address] [phone] 07/13/2023 8:00 AM CDT Virtual Visit [facility] [address] [place] [phone] Deuce Majano PA-C [address] [place] [address] [phone] documented as of this encounter Visit Diagnoses Not on filedocumented in this encounter Additional Health Concerns Infection Onset Date Last Indicated Resolved Time COVID-19 01/02/2022 01/02/2022 01/16/2022 7:58 AM FRONT DESK ADMIN Recovered COVID 01/16/2022 01/16/2022 04/01/2022 1 1:39 PM FRONT DESK ADMIN Rule Out C-difficile 03/10/2023 03/10/2023 024 5:57 PM FRONT DESK ADMIN documented as of this encounter Care Teams Front Desk Admin Relationship Specialty Start Date End Date Maximino Arredondo MD [address] [place] [phone] PCP - General Family Medicine 04/02/21 Chapin Khan MD [address] [place] [address] [phone] Urology 05/10/20 Brionna Covarrubias, [place] Registered Nurse Oncology 05/10/20 09/01/22 Driss Morales MD [address] [place] [address] [phone] Assigned Surgical Provider 11/17/20 04/10/22 Danya Barraza, [facility] [address] [place] [address] [phone] Pharmacist Pharmacist Lip Cutter And Scorer 12/25/20 Romi Fairbanks MD [address] [phone] Assigned Gastroenterology Provider 01/05/21 06/12/22 Luke Carvalho MD [address] [place] [address] [phone] Assigned Heart and Vascular Provider 03/30/21 12/12/21 Carmen Chapman APRN CNP [facility] [place] [address] Assigned PCP 04/27/21 03/27/22 Sarah Heard RN Specialty Tracer Clerk Gastroenterology 05/14/21 12/29/21 [facility] [address] [place] [address] 88440 Assigned MTM Pharmacist 07/12/21 [facility] [address] [place] [address] [phone] Assigned MTM Pharmacist 11/12/21 Danya Pena Assigned Heart and Vascular Provider 12/13/21 01/02/22 Jeanette French RN [address] [place] [address] [phone] Specialty Tracer Clerk Gastroenterology 12/30/21 Tammy Greenberg MD [address] [place] [address] [place] [address] [phone] Cardiovascular Disease 02/24/22 Genaro Palacios MD [address] [place] [address] [phone] Assigned Heart and Vascular Provider 03/28/22 Claude Rucker MD [address] [place] [address] [phone] Assigned Surgical Provider 04/11/22 Delroy Gore APRN [facility] [address] [place] [address] [phone] Assigned Nephrology Provider 04/25/22 Chapin Ruvalcaba MD [address] [place] [address] Assigned Gastroenterology Provider 06/13/22 06/19/22 Romi Fairbanks MD [address] [address] Assigned Gastroenterology Provider 06/20/22 08/14/22 Danya Barraza, [facility] [address] [place] [address] Assigned MTM Pharmacist 12/05/22 Deuce Majano PA-C [address] [place] [address] Assigned Gastroenterology Provider 01/23/23 02/05/23 Chapin Ruvalcaba MD [address] [place] [address] [phone] Assigned Gastroenterology Provider 02/06/23 documented as of this encounter
--- OUTSIDE RECORDS SUMMARY | 2023-03-14 02:43 | XMS_ITS | Encounter Summary ---
Author Name Unknown Organization [facility] Address [address] [place] [address]. [place] [address] Care Team Providers Care Director Of Financial Planning Name Role Phone Chapin Khan MD Unavailable [phone] Brionna Covarrubias RN Unavailable [phone] Driss Morales MD Unavailable [phone] Danya Barraza [facility] Unavailable [phone] Romi Fairbanks MD Unavailable [phone] Maximino Arredondo MD Primary Care Provider [phone] Luke Carvalho MD Unavailable [phone] Carmen Chapman APRN [facility] Unavailable + Sarah Heard RN Unavailable Unavailable Danya Barraza [facility] Unavailable +[phone] Danya Barraza [facility] Unavailable +[phone] Danya Pena Unavailable Unavailable Jeanette French RN Unavailable [phone] Tammy Greenberg MD Unavailable +[phone] Genaro Palacios MD Unavailable [phone] Claude Rucker MD Unavailable [phone] Delroy Gore APRN [facility] Unavailable [phone] Chapin Ruvalcaba MD Unavailable + [phone] Romi Fairbanks MD Unavailable +[phone] Madi Danyashayne Lopez [facility] Unavailable [phone] Deuce Majano PA-C Unavailable +[phone] Chapin Ruvalcaba MD Unavailable + [phone] Encounter Details Date Type Department Care Team (Late st Contact Info) Description 09/08/2021 MyC Medical Advice Initial Department Latrice Petty [...] st Contact Info) Description 04/01/2023 1:15 PM LICENSED LAND SURVEYOR Office Visit [address] [phone] Yolanda Wilkerson PA-C [address] [place] [address] [phone] 07/13/2023 8:00 AM CDT Virtual Visit [facility] [address] [place] [address] Deuce Majano PA-C [address] [place] [address] [phone] documented as of this encounter Visit Diagnoses Not on filedocumented in this encounter Additional Health Concerns Infection Onset Date Last Indicated Resolved Time COVID-19 01/02/2022 01/02/2022 01/16/2022 7:58 AM LICENSED LAND SURVEYOR Recovered COVID 01/16/2022 01/16/2022 04/01/2022 1 1:39 PM LICENSED LAND SURVEYOR Rule Out C-difficile 03/10/2023 03/10/2023 024 5:57 PM LICENSED LAND SURVEYOR documented as of this encounter Care Teams Director Of Financial Planning Relationship Specialty Start Date End [place] [phone] PCP - General Family Medicine 04/02/21 Chapin Khan MD [address] [place] [address] Urology 05/10/20 Brionna Covarrubias, RN Registered Nurse Oncology 05/10/20 09/01/22 Driss Morales MD [address] [place] [address] [phone] Assigned Surgical Provider 11/17/20 04/10/22 Danya Barraza, [facility] [address] [place] [address] [phone] Pharmacist Pharmacist Post Hole Digging Machine Operator 12/25/20 Romi Fairbanks MD [address] [phone] Assigned Gastroenterology Provider 01/05/21 06/12/22 Luke Carvalho MD [address] [place] [address] [phone] Assigned Heart and Vascular Provider 03/30/21 12/12/21 Carmen Chapman APRN [facility] [address] [place], [place] [phone] Assigned PCP 04/27/21 03/27/22 Sarah Heard, [place] Specialty Patient Admitting Representative Gastroenterology 05/14/21 12/29/21 [facility] [address] [place] [address] Assigned MTM Pharmacist 07/12/21 [facility] [address] [place] [address] 618[address] Assigned MTM Pharmacist 11/12/21 Danya Pena Assigned Heart and Vascular Provider 12/13/21 01/02/22 Jeanette French RN [address] [place] [address] [phone] Specialty Patient Admitting Representative Gastroenterology 12/30/21 Tammy Greenberg MD [address] [place] [address] [address] [place], [place] [phone] Cardiovascular Disease 02/24/22 Genaro Palacios MD [address] [place] [address] Assigned Heart and Vascular Provider 03/28/22 Claude Rucker MD [address] [place] [address] Assigned Surgical Provider 04/11/22 Delroy Gore APRN [facility] [address] [place], [place] [phone] Assigned Nephrology Provider 04/25/22 Chapin Ruvalcaba MD [address] [place] [address] [phone] Assigned Gastroenterology Provider 06/13/22 06/19/22 Romi Fairbanks MD [address] [phone] Assigned Gastroenterology Provider 06/20/22 08/14/22 Danya Barraza, [facility] [address] [place] [address] [phone] Assigned MTM Pharmacist 12/05/22 Deuce Majano PA-C [address] [place] [address] [phone] Assigned Gastroenterology Provider 01/23/23 02/05/23 Chapin Ruvalcaba MD [address] [facility] [address] [place], [place] [phone] Assigned Gastroenterology Provider 02/06/23 documented as of this encounter
--- OUTSIDE RECORDS SUMMARY | 2023-03-14 02:43 | XMS_ITS | Encounter Summary ---
Author Name Unknown Organization [place] Address [address] [place] [address]. [place] [address] Care Team Providers Care Vegetable Grower Name Role Phone Chapin Khan MD Unavailable [phone] Brionna Covarrubias RN Unavailable [phone] Driss Morales MD Unavailable [phone] Danya Barraza [facility] Unavailable [phone] Romi Fairbanks MD Unavailable [phone] Maximino Arredondo MD Primary Care Provider [phone] Luke Carvalho MD Unavailable [phone] Carmen Chapman APRN MANAGER INFRASTRUCTURE Unavailable + Sarah Heard RN Unavailable Unavailable Danya Barraza [facility] Unavailable [phone] Danya Barraza [facility] Unavailable [phone] Danya Pena Unavailable Unavailable Jeanette French RN Unavailable [phone] Tammy Greenberg MD Unavailable [phone] Genaro Palacios MD Unavailable [phone] Claude Rucker MD Unavailable [phone] Delroy Gore APRN MANAGER INFRASTRUCTURE Unavailable [phone] Chapin Ruvalcaba MD Unavailable + [phone] Romi Fairbanks MD Unavailable [phone] Alexandriaazra Danya John [facility] Unavailable [phone] Deuce Majano PA-C Unavailable [phone] Chapin Ruvalcaba MD Unavailable + [phone] Encounter Details Date Type Department Care Team (Latest Contact Info) Description 09/08/2021 MyC Medical Advice [facility] [address] [place] [address] Romi Fairbanks MD [address] [address] Crohn's disease of large intestine (H) Social [...] st Contact Info) Description 04/01/2023 1:15 PM INSPECTOR SOLDERING Office Visit [address] [address] Yolanda Wilkerson, RADHA [address] [place] [address] 07/13/2023 8:00 AM CDT Virtual Visit [facility] [address] [place] [phone] Deuce Majano PA-C [address] [place] [address] [phone] documented as of this encounter Results * (ABNORMAL) Erythrocyte sedimentation rate auto (08/10/2022 4:53 PM CDT) Pathologist [facility] Erythrocyte Sedimentation Rate 77(H) 0 - 20 mm/hr 08/10/2022 5:22 PM CDT [facility] Blood STRUCTURE OF RIGHT UPPER LIMB / Unknown Venipuncture / Unknown 08/10/2022 4:53 PM CDT 08/10/2022 4:53 PM CDT Romi Fairbanks MD LAB - BLOOD ORDERABL ES Performing Organization Address City/[facility]/ZIP Co de Phone Number [facility] [address] Floor Lab Core Lab [place], [place] [phone] * (ABNORMAL) CRP inflammation (08/10/2022 4:53 PM CDT) Pathologist [facility] CRP Inflammation 154.00(H) <5.00 mg/L 08/10/2022 5:20 PM CDT [facility] Blood STRUCTURE OF RIGHT UPPER LIMB / Unknown Venipuncture / Unknown 08/10/2022 4:53 PM CDT 08/10/2022 4:53 PM CDT Romi Fairbanks MD LAB - BLOOD ORDERABL ES [facility] [address] 1st [place] [address] * (ABNORMAL) Comprehensive metabolic panel (08/10/2022 4:53 PM CDT) [facility] Sodium 140 136 - 145 mmol/L 08/10/2022 5:20 PM CDT [facility] Potassium 4.0 3.4 - 5.3 mmol/L 08/10/2022 5:20 PM CDT [facility] Chloride 98 98 - 107 mmol/L 08/10/2022 5:20 PM CDT [facility] Carbon Dioxide (CO2) 31(H) 22 - 29 mmol/L 08/10/2022 5:20 PM CDT [facility] Anion Gap 11 7 - 15 mmol/L 08/10/2022 5:20 PM CDT [facility] Urea Nitrogen 19.1 8.0 - 23.0 mg/dL 08/10/2022 5:20 PM CDT [facility] Creatinine 5.98(H) 0.67 - 1.17 mg/dL 08/10/2022 5:20 PM CDT [facility] Calcium 10.3(H) 8.8 - 10.2 mg/dL 08/10/2022 5:20 PM CDT [facility] Glucose 128(H) 70 - 99 mg/dL 08/10/2022 5:20 PM CDT [facility] Alkaline Phosphatase 65 40 - 129 U/L 08/10/2022 5:20 PM CDT [facility] AST 16 0 - 45 U/L 08/10/2022 5:20 PM CDT [facility] Comment:Reference intervals for this test were updated on 07/27/2022 to more accurately reflect our healthy population. There may be differences in the flagging of prior results with similar values performed with this method. Interpretation of those prior results can be made in the context of the updated reference intervals. ALT 15 0 - 70 U/L 08/10/2022 5:20 PM CDT [facility] Comment:Reference intervals for [...] - 8.3 g/dL 08/10/2022 5:20 PM CDT [facility] Albumin 3.7 3.5 - 5.2 g/dL 08/10/2022 5:20 PM CDT [facility] Bilirubin Total 1.1 <=1.2 mg/dL 08/10/2022 5:20 PM CDT [facility] GFR Estimate 10(L) >60 mL/min/1. 73m2 08/10/2022 5:20 PM CDT [facility] Blood STRUCTURE OF RIGHT UPPER LIMB / Unknown Venipuncture / Unknown 08/10/2022 4:53 PM CDT 08/10/2022 4:53 PM CDT Romi Fairbanks MD LAB - BLOOD ORDERABL ES Performing Organization Address City/[facility]/ZIP Co de Phone Number [facility] [address] 1st [place] [address] * (ABNORMAL) Erythrocyte sedimentation rate auto (05/22/2022 12:22 PM CDT) Erythrocyte Sedimentation Rate 104(H) 0 - 20 mm/hr 05/22/2022 12:52 PM CDT LABORATORY Blood BLOOD SPECIMEN / Unknown Venipuncture / Unknown 05/22/2022 12:22 PM CDT 05/22/2022 12:22 PM CDT Romi Fairbanks MD LAB - BLOOD ORDERABL ES LABORATORY [facility] [address] [facility] Lab (no room number, 1st floor of clinic) [place] [address], [facility] [phone] * (ABNORMAL) CRP inflammation (05/22/2022 12:22 PM CDT) CRP Inflammation 26.70(H) <5.00 mg/L 05/22/2022 10:36 PM CDT [facility] Blood BLOOD SPECIMEN / Unknown Venipuncture / Unknown 05/22/2022 12:22 PM CDT 05/22/2022 12:22 PM CDT Romi Fairbanks MD LAB - BLOOD ORDERABL ES [facility] [employer] [place] [facility] [address] [facility], [address] [place] [address], [facility] [phone] * (ABNORMAL) Comprehensive metabolic panel (05/22/2022 12:22 [...] PM CDT [facility] Comment:eGFR calculated usin 2020 CKD-EPI equation. Blood BLOOD SPECIMEN / Unknown Venipuncture / Unknown 05/22/2022 12:22 PM CDT 05/22/2022 12:22 PM CDT Romi Fairbanks MD LAB - BLOOD ORDERABL ES [facility] [employer] [place] [facility] [address] [facility], [address] [place] [address], [facility] [phone] * (ABNORMAL) Erythrocyte sedimentation rate auto (01/02/2022 9:57 AM INSPECTOR SOLDERING) Erythrocyte Sedimentation Rate 44(H) 0 - 20 mm/hr 01/02/2022 10:16 AM INSPECTOR SOLDERING LABORATORY Blood BLOOD SPECIMEN / Unknown Venipuncture / Unknown 01/02/2022 9:57 AM INSPECTOR SOLDERING 01/02/2022 10:00 AM INSPECTOR SOLDERING Romi aFirbanks MD LAB - BLOOD ORDERABL ES LV LABORATORY [facility] [address] [facility] Lab (no room number, 1st floor of clinic) [place] [address], [facility] [phone] * CRP inflammation (01/02/2022 9:57 AM INSPECTOR SOLDERING) CRP Inflammation 4.42 <5.00 mg/L 01/03/20 8:21 PM INSPECTOR SOLDERING [facility] Blood BLOOD SPECIMEN / Unknown Venipuncture / Unknown 01/02/2022 9:57 AM INSPECTOR SOLDERING 01/02/2022 10:00 AM INSPECTOR SOLDERING Romi Fairbanks MD LAB - BLOOD ORDERABL ES [facility] [employer] [place] [facility] [address] [facility] [address], [address] [place] [address], [facility] [phone] * (ABNORMAL) Comprehensive metabolic panel (01/02/2022 9:57 AM INSPECTOR SOLDERING) Sodium 142 136 - 145 mmol/L 01/02/2022 8:21 PM INSPECTOR SOLDERING [facility] Potassium 4.1 3.4 - 5.3 mmol/L 01/02/2022 8:21 PM INSPECTOR SOLDERING [facility] Chloride 97(L) 98 - 107 mmol/L 01/02/2022 8:21 PM INSPECTOR SOLDERING [facility] Carbon Dioxide (CO2) 29 22 - 29 mmol/L 01/02/2022 8:21 PM INSPECTOR SOLDERING [facility] Anion Gap 16(H) 7 - 15 mmol/L 01/02/2022 8:21 PM INSPECTOR SOLDERING [facility] Urea Nitrogen 12.0 8.0 - 23.0 mg/dL 01/02/2022 8:21 PM INSPECTOR SOLDERING [facility] Creatinine 5.34(H) 0.67 - 1.17 mg/dL 01/02/2022 8:21 PM INSPECTOR SOLDERING [facility] Calcium 10.0 8.8 - 10.2 mg/dL 01/02/2022 8:21 PM INSPECTOR SOLDERING [facility] Glucose 129(H) 70 - 99 mg/dL 01/02/2022 8:21 PM INSPECTOR SOLDERING [facility] Alkaline Phosphatase 65 40 - 129 U/L 01/02/2022 8:21 PM INSPECTOR SOLDERING [facility] AST 33 10 - 50 U/L 01/02/2022 8:21 PM INSPECTOR SOLDERING [facility] ALT 23 10 - 50 U/L 01/02/2022 8:21 PM INSPECTOR SOLDERING [facility] Protein Total 7.5 6.4 - 8.3 g/dL 01/02/2022 8:21 PM INSPECTOR SOLDERING [facility] Albumin 4.6 3.5 - 5.2 g/dL 01/02/2022 8:21 PM INSPECTOR SOLDERING [facility] Bilirubin Total 0.8 <=1.2 mg/dL 01/02/2022 8:21 PM INSPECTOR SOLDERING [facility] GFR Estimate 11(L) >60 mL/min/1.7 3m2 01/02/2022 8:21 PM INSPECTOR SOLDERING [facility] Comment:Effective January 162020 eGFRcr in adults is calculated using the 2020 CKD-EPI creatinine equation which includes age and gender (Pk et al., NEJM, DOI: 10.1056/KKKRdy5922900) Blood BLOOD SPECIMEN / Unknown Venipuncture / Unknown 01/02/2022 9:57 AM INSPECTOR SOLDERING 01/02/2022 10:00 AM INSPECTOR SOLDERING Romi Fairbanks MD LAB - BLOOD ORDERABL ES [facility] [employer] [place] [facility] [address] [facility], [address] [place] [address], [place] [phone] * (ABNORMAL) Erythrocyte sedimentation rate auto (09/13/2021 12:38 PM CDT) Erythrocyte Sedimentation Rate 40(H) 0 - 20 mm/hr 09/13/2021 2:46 PM CDT [facility] Blood STRUCTURE OF RIGHT UPPER LIMB / Unknown Venipuncture / Unknown 09/13/2021 12:38 PM CDT 09/13/2021 12:38 PM CDT Romi Fairbanks MD LAB - BLOOD ORDERABL ES [facility] [address] Lab (no room number, 1st floor of clinic) [place] [address], [place] [phone] * (ABNORMAL) CRP inflammation (09/13/2021 12:38 PM CDT) CRP Inflammation 10.70(H) <5.00 mg/L 09/14/2021 4:08 PM CDT [facility] Blood STRUCTURE OF RIGHT UPPER LIMB / Unknown Venipuncture / Unknown 09/13/2021 12:38 PM CDT 09/13/2021 12:38 PM CDT Romi Fairbanks MD LAB - BLOOD ORDERABL ES [facility] [employer] [place] [facility] [address] [facility], [address] [place] [address], [facility] [phone] * (ABNORMAL) Comprehensive metabolic panel (09/13/2021 12:38 PM CDT) Sodium 137 133 - 144 mmol/L 09/14/2021 7:15 PM CDT [facility] Potassium 3.5 3.4 - 5.3 mmol/L 09/14/2021 7:15 PM CDT [facility] Chloride 100 94 - 109 mmol/L 09/14/2021 7:15 PM CDT [facility] Carbon Dioxide (CO2) 30 20 - 32 mmol/L 09/14/2021 7:15 PM CDT [facility] Anion Gap 7 3 - 14 mmol/L 09/14/2021 7:15 PM CDT [facility] Urea Nitrogen 14 7 - 30 mg/dL 09/14/2021 7:15 PM CDT [facility] Creatinine 5.93(HH) 0.66 - 1.25 mg/dL 09/14/2021 7:15 PM CDT [facility] Calcium 8.9 8.5 - 10.1 mg/dL 09/14/2021 7:15 PM CDT [facility] Glucose 166(H) 70 - 99 mg/dL 09/14/2021 7:15 PM CDT [facility] Alkaline Phosphatase 90 40 - 150 U/L 09/14/2021 7:15 PM CDT [facility] AST 19 0 - 45 U/L 09/14/2021 7:15 PM CDT [facility] ALT 21 0 - 70 U/L 09/14/2021 7:15 PM CDT [facility] Protein Total 7.1 6.8 - 8.8 g/dL 09/14/2021 7:15 PM CDT [facility] Albumin 3.7 3.4 - 5.0 g/dL 09/14/2021 7:15 PM CDT [facility] Bilirubin Total 0.9 0.2 - 1.3 mg/dL 09/14/2021 7:15 PM CDT [facility] GFR Estimate 10(L) >60 mL/min/1. 73m2 09/14/2021 7:15 PM CDT [facility] Comment:Effective January 162020 eGFRcr in adults is calculated using the 2020 CKD-EPI creatinine equation which includes age and gender (Pk et al., NE, DOI: 10.1056/JEBEiy5197755) Blood STRUCTURE OF RIGHT UPPER LIMB / Unknown Venipuncture / Unknown 09/13/2021 12:38 PM CDT 09/13/2021 12:38 PM CDT Romi Fairbanks MD LAB - BLOOD ORDERABL ES [facility] [address] Lab (no room number, 1st floor of clinic) [place] [address] [phone] documented in this encounter Visit Diagnoses Diagnosis Crohn's disease of large intestine (H) Regional enteritis of large intestine documented in this encounter Additional Health Concerns Infection Onset Date Last Indicated Resolved Time COVID-19 01/02/2022 01/02/2022 01/16/2022 7:58 AM INSPECTOR SOLDERING Recovered COVID 01/16/2022 01/16/2022 04/01/2022 1 1:39 PM INSPECTOR SOLDERING Rule Out C-difficile 03/10/2023 03/10/2023 024 5:57 PM INSPECTOR SOLDERING documented as of this encounter Care Teams Vegetable Grower Relationship Specialty Start Date End Date [place] [address] PCP - General Family Medicine 04/02/21 Chapin Kahn MD [address] [place] [address] Urology 05/10/20 Brionna Covarrubias, RN Registered Nurse Oncology 05/10/20 09/01/22 Driss Morales MD [address] [place] [address] Assigned Surgical Provider 11/17/20 04/10/22 Danya Barraza [facility] [address] [place] [address] Pharmacist Pharmacist Lasting Room Machine Operator 12/25/20 Romi Fairbanks MD [address] [address] Assigned Gastroenterology Provider 01/05/21 06/12/22 Luke Carvalho MD [address] [place] [address] Assigned Heart and Vascular Provider 03/30/21 12/12/21 Carmen Chapman APRN CNP [facility] [place], [place] [phone] Assigned PCP 04/27/21 03/27/22 Sarah Heard RN Specialty Assistant Director Of Plant Operations Gastroenterology 05/14/21 12/29/21 Danya Barraza [facility] [address] [place] [address] Assigned MTM Pharmacist 07/12/21 Danya Barraza [facility] [address] [place] [address] Assigned MTM Pharmacist 11/12/21 Danya Pena Assigned Heart and Vascular Provider 12/13/21 01/02/22 Jeanette French, FATOUMATA [address] [place], [place] [address] Specialty Assistant Director Of Plant Operations Gastroenterology 12/30/21 Tammy Greenberg MD [address] [facility] [address] [place] [address] Cardiovascular Disease 02/24/22 Genaro Palacios MD [address] [facility] [address] [place], [place] [address] Assigned Heart and Vascular Provider 03/28/22 Claude Rucker MD [address] [place] [address] [phone] Assigned Surgical Provider 04/11/22 Delroy Gore, CYLINDER GRINDER MANAGER INFRASTRUCTURE [address] [place] [address] 287335 Assigned Nephrology Provider 04/25/22 Chapin Ruvalcaba MD [address] [facility] [address] [place], [place] 5[address] Assigned Gastroenterology Provider 06/13/22 06/19/22 Romi Fairbanks MD [facility] [address] [place], [place] 8568[address] Assigned Gastroenterology Provider 06/20/22 08/14/22 Danya Barraza, [facility] [address] [place] [address] [phone] Assigned MTM Pharmacist 12/05/22 Deuce Majano PA-C [address] [place], [place] 334065 Assigned Gastroenterology Provider 01/23/23 02/05/23 Chapin Ruvalcaba MD [address] [facility] [address] [place], [place] 98[address] Assigned Gastroenterology Provider 02/06/23 documented as of this encounter
--- OUTSIDE RECORDS SUMMARY | 2023-03-14 02:43 | XMS_ITS | Encounter Summary ---
Author Name Unknown Organization [place] Address [address] [place] [address]. [place] [address] Care Team Providers Care Supervisor Byproducts Name Role Phone Chapin Khan MD Unavailable [phone] Brionna Covarrubias RN Unavailable [phone] Driss Morales MD Unavailable [phone] Danya Barraza [facility] Unavailable [phone] Romi Fairbanks MD Unavailable [phone] Maximino Arredondo MD Primary Care Provider [phone] Carmen Chapman APRN SPACE SYSTEMS OPERATIONS MANAGER Unavailable + Sarah Heard RN Unavailable Unavailable Danya Barraza [facility] Unavailable [phone] Danya Pena Unavailable Unavailable Jeanette French RN Unavailable [phone] Tammy Greenberg MD Unavailable [phone] Genaro Palacios MD Unavailable [phone] Claude Rucker MD Unavailable [phone] Delroy Gore APRN SPACE SYSTEMS OPERATIONS MANAGER Unavailable [phone] Chapin Ruvalcaba MD Unavailable [phone] Roim Fairbanks MD Unavailable [phone] Danya Barraza [facility] Unavailable [phone] Deuce Majano PA-C Unavailable [phone] Chaipn Ruvalcaba MD Unavailable [phone] Encounter Details Date Type Department Care Team (Late Contact Info) Description 12/25/2021 MyC Medical Advice [facility] Gastroenterology Clinic [address] [address] Sanaz Cherry MA Social History Tobacco Use Types Packs/Day Years [...] suspected to have Coronavirus/COVID-19? No / Unsure 12/19/2021 10:23 AM CDT documented as of this encounter Plan of Treatment Upcoming Encounters Date Type Department Care Team (Late st Contact Info) Description 04/01/2023 1:15 PM LAW RESEARCHER Office Visit [address] [address] Yolanda Wiklerson PA-C [address] [place] [address] [phone] 07/13/2023 8:00 AM CDT Virtual Visit [facility]ology [facility] [place] [address] [facility] 4th [place] [phone] Deuce Majano PA-C [address] [place] [address] documented as of this encounter Visit Diagnoses Not on filedocumented in this encounter Additional Health Concerns Infection Onset Date Last Indicated Resolved Time COVID-19 01/02/2022 01/02/2022 01/16/2022 7:58 AM LAW RESEARCHER Recovered COVID 01/16/2022 01/16/2022 04/01/2022 1 1:39 PM LAW RESEARCHER Rule Out C-difficile 03/10/2023 03/10/2023 024 5:57 PM LAW RESEARCHER documented as of this encounter Care Teams Supervisor Byproducts Relationship Specialty Start Date End Date Maximino Arredondo MD [address] [place] [phone] PCP - General Family Medicine 04/02/21 Chapin Khan MD [address] [place] [address] Urology 05/10/20 Brionna Covarrubias, RN Registered Nurse Oncology 05/10/20 09/01/22 Driss Morales MD [address] [place] [address] Assigned Surgical Provider 11/17/20 04/10/22 Danya Barraza, [facility] [address] [place] [address] Pharmacist Pharmacist Circus Train Supervisor 12/25/20 Romi Fairbanks MD [facility] [address] [place], [place] [address] Assigned Gastroenterology Provider 01/05/21 06/12/22 Carmen Chapman APRN SPACE SYSTEMS OPERATIONS MANAGER [address] [place] [address] Assigned PCP 04/27/21 03/27/22 Sarah Heard, FATOUMATA Specialty Chlorination Operator Gastroenterology 05/14/21 12/29/21 [facility] [address] [place] [address] [phone] Assigned MTM Pharmacist 11/12/21 Danya Pena Assigned Heart and Vascular Provider 12/13/21 01/02/22 Jeanette French RN [address] [place] [address] 957255 Specialty Chlorination Operator Gastroenterology 12/30/21 Tammy Greenberg MD [address] [place] [address] 508 [place], [place] [phone] Cardiovascular Disease 02/24/22 Genaro Palacios MD [address] 179155 Assigned Heart and Vascular Provider 03/28/22 Claude Rucker MD [address] [place] [address] [phone] Assigned Surgical Provider 04/11/22 Delroy Gore APRN SPACE SYSTEMS OPERATIONS MANAGER [address] [place] [address] Assigned Nephrology Provider 04/25/22 Chapin Ruvalcaba MD [address] [address] Assigned Gastroenterology Provider 06/13/22 06/19/22 Romi Fairbanks MD [facility] [address] [place] [address] Assigned Gastroenterology Provider 06/20/22 08/14/22 Danya Barraza [facility] [address] [place] [address] Assigned MTM Pharmacist 12/05/22 Deuce Majano PA-C [address] [place] [address] Assigned Gastroenterology Provider 01/23/23 02/05/23 Chapin Ruvalcaba MD [address] [address] Assigned Gastroenterology Provider 02/06/23 documented as of this encounter
--- OUTSIDE RECORDS SUMMARY | 2023-03-14 02:43 | XMS_ITS | Encounter Summary ---
Author Name Unknown Organization [place] Address [address] [place] [address] Care Team Providers Care Business Information Manager Name Role Phone Chapin Khan MD Unavailable +[phone] Brionna Covarrubias RN Unavailable [phone] Driss Morales MD Unavailable +[phone] Danya Barraza [facility] Unavailable +[phone] Romi bonilla MD Unavailable [phone] Maximino Arredondo MD Primary Care Provider +[phone] Luke Carvalho MD Unavailable [phone] Carmen Chapman APRN J2EE APPLICATION DEVELOPER Unavailable + Sarah Heard RN Unavailable Unavailable Danya Barraza [facility] Unavailable [phone] Danya Pena Unavailable Unavailable Jeanette French RN Unavailable [phone] Tammy Greenberg MD Unavailable +[phone] Genaro Palacios MD Unavailable +[phone] Claude Rucker MD Unavailable +[phone] Delroy Gore APRN J2EE APPLICATION DEVELOPER Unavailable Chapin Ruvalcaba MD Unavailable +[phone] Romi Fairbanks MD Unavailable [phone] Danya Barraza [facility] Unavailable +[phone] Deuce Majano PA-C Unavailable +[phone] Chapin Ruvalcaba MD Unavailable + [phone] Encounter Details Date Type Department Care Team (Late Contact Info) Description 11/10/2021 MyC Medical Advice [facility] Urology Clinic [address] [address] Ana Miller, [place] Social History Tobacco [...] (Late Contact Info) Description 04/01/2023 1:15 PM CHAIR CAR ATTENDANT Office Visit [address] [address] Yolanda Wilkerson PA-C [address] [place] [address] 510855 07/13/2023 8:00 AM CDT Virtual Visit [facility] Gastroenterology Clinic [address] [phone] Deuce Majano PA-C [address] [place] [address] documented as of this encounter Visit Diagnoses Not on filedocumented in this encounter Additional Health Concerns Infection Onset Date Last Indicated Resolved Time COVID-19 01/02/2022 01/02/2022 01/16/2022 7:58 AM CHAIR CAR ATTENDANT Recovered COVID 01/16/2022 01/16/2022 04/01/2022 1 1:39 PM CHAIR CAR ATTENDANT Rule Out C-difficile 03/10/2023 03/10/2023 024 5:57 PM CHAIR CAR ATTENDANT documented as of this encounter Care Teams Business Information Manager Relationship Specialty Start Date End Date Maximino Arredondo MD [address] [place] [address] PCP - General Family Medicine 04/02/21 Chapin Khan MD [address] [place] [address] 039555 Urology 05/10/20 Brionna Covarrubias, RN Registered Nurse Oncology 05/10/20 09/01/22 Driss Morales MD [address] [place] [address] Assigned Surgical Provider 11/17/20 04/10/22 Danya Barraza, [facility] [address] [place] [address] Pharmacist Pharmacist Throw Out Clerk 12/25/20 Romi Fairbanks MD [address] [address] Assigned Gastroenterology Provider 01/05/21 06/12/22 Luke Carvalho MD [address] [place] [address] [phone] Assigned Heart and Vascular Provider 03/30/21 12/12/21 Carmen Chapman APRN CNP [address] [place] [address] Assigned PCP 04/27/21 03/27/22 Sarah Heard, [place] Specialty Cutter Finisher Gastroenterology 05/14/21 12/29/21 Danya Barraza, [facility] [address] [place] [address] [phone] Assigned MTM Pharmacist 11/12/21 Danya Pena Assigned Heart and Vascular Provider 12/13/21 01/02/22 Jeanette French RN 9 [place], [place] 681945 Specialty Cutter Finisher Gastroenterology 12/30/21 Tammy Greenberg MD [address] [place] [address] 508 [place], [place] 723335 Cardiovascular Disease 02/24/22 Genaro Palacios MD [address] [facility] [address] [place], [place] 800725 Assigned Heart and Vascular Provider 03/28/22 Claude Rucker MD [address] [place] [address] 658845 Assigned Surgical Provider 04/11/22 Delroy Gore APRN [facility] 909 [place], [place] 208815 Assigned Nephrology Provider 04/25/22 Chapin Ruvalcaba MD 6 [facility] 1E [place], [place] 978325 Assigned Gastroenterology Provider 06/13/22 06/19/22 Romi Fairbanks MD [facility] [address] [place], [place] 591535 Assigned Gastroenterology Provider 06/20/22 08/14/22 Danya Barraza [facility] [address] [place] [address] 305635 Assigned MTM Pharmacist 12/05/22 Deuce Majano PA-C [address] [place] [address] 608785 Assigned Gastroenterology Provider 01/23/23 02/05/23 Chapin Ruvalcaba MD [address] [phone] Assigned Gastroenterology Provider 02/06/23 documented as of this encounter
--- OUTSIDE RECORDS SUMMARY | 2023-03-14 02:43 | XMS_ITS | Encounter Summary ---
Author Name Unknown Organization [place] Address [address] [facility] [place] [address] Care Team Providers Care Ordinary Seaman Name Role Phone Chapin Khan MD Unavailable [phone] Brionna Covarrubias RN Unavailable [phone] Driss Morales MD Unavailable [phone] Danya Barraza [facility] Unavailable Romi Fairbanks MD Unavailable [phone] Maximino Arredondo MD Primary Care Provider [phone] Carmen Chapman APRN ACCOUNT ANALYST Unavailable + Sarah Heard RN Unavailable Unavailable Danya Barraza [facility] Unavailable Danya Pena Unavailable Unavailable Jeanette French RN Unavailable +[phone] Tammy Greenberg MD Unavailable +[phone] Encounter Details Date Type Department Care Team (Late st Contact Info) Description 12/22/2021 Medical Correspondence [facility] [address] [place] [address] Outside, Provider Social History Tobacco [...] Coronavirus/COVID-19? No / Unsure 03/19/2022 6:43 AM CONSERVATION TECHNICIAN documented as of this encounter Plan of Treatment Upcoming Encounters Date Type Department Care Team (Late st Contact Info) Description 04/01/2023 1:15 PM CONSERVATION TECHNICIAN Office Visit [address] [address] Yolanda Wilkerson PA-C [address] [place] [address] 698985 07/13/2023 8:00 AM CDT Virtual Visit [facility] Gastroenterology Clinic [address] [place] [phone] Deuce Majano PA-C [address] [place] [address] [phone] documented as of this encounter Visit Diagnoses Not on filedocumented in this encounter Additional Health Concerns Infection Onset Date Last Indicated Resolved Time COVID-19 01/02/2022 01/02/2022 01/16/2022 7:58 AM CONSERVATION TECHNICIAN Recovered COVID 01/16/2022 01/16/2022 04/01/2022 1 1:39 PM CONSERVATION TECHNICIAN documented as of this encounter Care Teams Ordinary Seaman Relationship Specialty Start Date End [place] [phone] PCP - General Family Medicine 04/02/21 Chapin Khan MD [address] [place] [address] 824965 Urology 05/10/20 Brionna Covarrubias, [place] Registered Nurse Oncology 05/10/20 09/01/22 Driss Morales MD [address] [place] [address] 137875 Assigned Surgical Provider 11/17/20 04/10/22 Danya Barraza [facility] [address] [place] [address] 710085 Pharmacist Pharmacist Core Fitter 12/25/20 Romi Fairbanks MD [address] 822225 Assigned Gastroenterology Provider 01/05/21 06/12/22 Carmen Chapman APRN ACCOUNT ANALYST [address] [place] [address] Assigned PCP 04/27/21 03/27/22 Sarah Heard, RN Specialty Utility Engineer Gastroenterology 05/14/21 12/29/21 Danya Barraza [facility] [address] [place] [address] Assigned MTM Pharmacist 11/12/21 Danya Pena Assigned Heart and Vascular Provider 12/13/21 01/02/22 Jeanette French, RN 909 [place] [address] Specialty Utility Engineer Gastroenterology 12/30/21 Tammy Greenberg MD [address] [place] [address] [place] [address] [phone] Cardiovascular Disease 02/24/22 documented as of this encounter
--- OUTSIDE RECORDS SUMMARY | 2023-03-14 02:43 | XMS_ITS | Encounter Summary ---
Author Name Unknown Organization [place] Address [address] [place] [address]. [place] [address] Care Team Providers Care International Manager Name Role Phone Chapin Khan MD Unavailable [phone] Brionna Covarrubias RN Unavailable [phone] Driss Morales MD Unavailable [phone] Danya Barraza [facility] Unavailable [phone] Romi Fairbanks MD Unavailable [phone] Maximino Arredondo MD Primary Care Provider [phone] Luke Carvalho MD Unavailable [phone] Carmen Chapman APRN DIETARY SERVICES DIRECTOR Unavailable + Sarah Heard RN Unavailable Unavailable Danya Barraza [facility] Unavailable +[phone] Danya Barraza [facility] Unavailable +[phone] Danya Pena Unavailable Unavailable Jeanette French RN Unavailable [phone] Tammy Greenberg MD Unavailable +[phone] Genaro Palacios MD Unavailable +[phone] Claude Rucker MD Unavailable [phone] Delroy Gore APRN DIETARY SERVICES DIRECTOR Unavailable +[phone] Chapin Ruvalcaba MD Unavailable + [phone] Romi Fairbanks MD Unavailable +[phone] AlexandriaDanya oquendo John [facility] Unavailable [phone] Deuce Majano PA-C Unavailable +[phone] Chapin Ruvalcaba MD Unavailable + [phone] Encounter Details Date Type Department Care Team (Late st Contact Info) Description 09/08/2021 MyC Medical Advice [facility] Gastroenterology Clinic [address] [address] [facility] Social History Tobacco Use Types Packs/Day [...] st Contact Info) Description 04/01/2023 1:15 PM SOFTWARE SYSTEMS ENGINEER Office Visit [address] [address] Yolanda Wilkerson PA-C [address] [place] [address] 090815 07/13/2023 8:00 AM CDT Virtual Visit [facility] Gastroenterology Clinic [address] 4th [place] [address] Deuce Majano PA-C [address] [place] [address] 649015 documented as of this encounter Visit Diagnoses Not on filedocumented in this encounter Additional Health Concerns Infection Onset Date Last Indicated Resolved Time COVID-19 01/02/2022 01/02/2022 01/16/2022 7:58 AM SOFTWARE SYSTEMS ENGINEER Recovered COVID 01/16/2022 01/16/2022 04/01/2022 1 1:39 PM SOFTWARE SYSTEMS ENGINEER Rule Out C-difficile 03/10/2023 03/10/2023 024 5:57 PM SOFTWARE SYSTEMS ENGINEER documented as of this encounter Care Teams International Manager Relationship Specialty Start Date End Date Maximino Arredondo MD [address] [place] [phone] PCP - General Family Medicine 04/02/21 Chapin Khan MD [address] [place] [address] Urology 05/10/20 Brionna Covarrubias, [place] Registered Nurse Oncology 05/10/20 09/01/22 Driss Morales MD [address] [place] [address] [phone] Assigned Surgical Provider 11/17/20 04/10/22 Danya Barraza, [facility] [address] [place] [address] 427225 Pharmacist Pharmacist Checkout Operator 12/25/20 Romi Fairbanks MD [address] [address] Assigned Gastroenterology Provider 01/05/21 06/12/22 Luke Carvalho MD [address] [place] [address] Assigned Heart and Vascular Provider 03/30/21 12/12/21 Carmen Chapman APRN [facility] 5200 [place] [address] Assigned PCP 04/27/21 03/27/22 Sarah Heard, [place] Specialty Mending Carrier Gastroenterology 05/14/21 12/29/21 [facility] [address] [place] [address] Assigned MTM Pharmacist 07/12/21 [facility] [address] [place] [address] Assigned MTM Pharmacist 11/12/21 Danya Pena Assigned Heart and Vascular Provider 12/13/21 01/02/22 Jeanette French, RN [address] [place] [address] Specialty Mending Carrier Gastroenterology 12/30/21 Tammy Greenberg MD [address] [place] [address] 508 [place] [address] Cardiovascular Disease 02/24/22 Genaro Palacios MD [address] [facility] JOLENE LEMA 010505 Assigned Heart and Vascular Provider 03/28/22 Claude Rucker MD [address] [place] [address] 044865 Assigned Surgical Provider 04/11/22 Delroy Gore APRN DIETARY SERVICES DIRECTOR [address] [place] [address] 464405 Assigned Nephrology Provider 04/25/22 Chapin Ruvalcaba MD [address] [place] [address] [phone] Assigned Gastroenterology Provider 06/13/22 06/19/22 Romi Fairbanks MD [address] 182535 Assigned Gastroenterology Provider 06/20/22 08/14/22 Danya Barraza [facility] [address] [place] [address] 307395 Assigned MTM Pharmacist 12/05/22 Deuce Majano PA-C [address] [place] [address] 703305 Assigned Gastroenterology Provider 01/23/23 02/05/23 Chapin Ruvalcaba MD [address] [place] [address] 369005 Assigned Gastroenterology Provider 02/06/23 documented as of this encounter
--- OUTSIDE RECORDS SUMMARY | 2023-03-14 02:43 | XMS_ITS | Encounter Summary ---
Author Name Unknown Organization [place] Address [address] [place] [address]. [place] [address] Care Team Providers Care Offender Employment Specialist Name Role Phone Chapin Khan MD Unavailable +[phone] Brionna Covarrubias RN Unavailable [phone] Driss Morales MD Unavailable +[phone] Danya Barraza [facility] Unavailable [phone] Romi Fairbanks MD Unavailable +[phone] Maximino Arredondo MD Primary Care Provider [phone] Carmen Chapman APRN PAPER MACHINE SUPERVISOR Unavailable + Sarah Heard RN Unavailable Unavailable Danya Barraza [facility] Unavailable [phone] Danya Pena Unavailable Unavailable Jeanette French RN Unavailable [phone] Tammy Greenberg MD Unavailable +[phone] Genaro Palacios MD Unavailable +[phone] Claude Rucker MD Unavailable [phone] Delroy Gore APRN PAPER MACHINE SUPERVISOR Unavailable [phone] Chapin Ruvalcaba MD Unavailable +[phone] Romi Fairbanks MD Unavailable [phone] Danya Barraza [facility] Unavailable +[phone] Deuce Majano PA-C Unavailable +[phone] Chapin Ruvalcaba MD Unavailable +[phone] Encounter Details Date Type Department Care Team (Late Contact Info) Description 12/18/2021 MyC Medical Advice [facility] Gastroenterology Clinic [address] [address] Roslyn [place], [place] Social History Tobacco Use Types Packs/Day [...] (Late Contact Info) Description 04/01/2023 1:15 PM CAR PARK ATTENDANT Office Visit [address] [address] Yolanda Wilkerson PA-C [address] [place] [address] 806855 07/13/2023 8:00 AM CDT Virtual Visit [facility] Gastroenterology Clinic [place] [address] [facility] 4th [place] [phone] Deuce Majano PA-C [address] [place] [address] documented as of this encounter Visit Diagnoses Not on filedocumented in this encounter Additional Health Concerns Infection Onset Date Last Indicated Resolved Time COVID-19 01/02/2022 01/02/2022 01/16/2022 7:58 AM CAR PARK ATTENDANT Recovered COVID 01/16/2022 01/16/2022 04/01/2022 1 1:39 PM CAR PARK ATTENDANT Rule Out C-difficile 03/10/2023 03/10/2023 024 5:57 PM CAR PARK ATTENDANT documented as of this encounter Care Teams Offender Employment Specialist Relationship Specialty Start Date End Date Maximino Arredondo MD [address] [place] [address] PCP - General Family Medicine 04/02/21 Chapin Khan MD [address] [place] [address] Urology 05/10/20 Brionna Covarrubias, RN Registered Nurse Oncology 05/10/20 09/01/22 Driss Morales MD [address] [place] [address] Assigned Surgical Provider 11/17/20 04/10/22 Danya Barraza, [facility] [address] [place] [address] Pharmacist Pharmacist Chief Clerk 12/25/20 Romi Fairbanks MD [facility] 909 [place], [place] 435525 Assigned Gastroenterology Provider 01/05/21 06/12/22 Carmen Chapman APRN PAPER MACHINE SUPERVISOR 5[address] [place] [address] Assigned PCP 04/27/21 03/27/22 Sarah Heard, [place] Specialty Sports Administrator Gastroenterology 05/14/21 12/29/21 [facility] [address] [place] [address] 053505 Assigned MTM Pharmacist 11/12/21 Danya Pena Assigned Heart and Vascular Provider 12/13/21 01/02/22 Jeanette French RN [address] [place] [address] [phone] Specialty Sports Administrator Gastroenterology 12/30/21 Tammy Greenberg MD [address] [place] [address] 508 [place], [place] 645995 Cardiovascular Disease 02/24/22 [place] [address] [place] [address] 677045 Assigned Heart and Vascular Provider 03/28/22 Claude Rucker MD [address] [place] [address] 520385 Assigned Surgical Provider 04/11/22 Delroy Gore APRN PAPER MACHINE SUPERVISOR [address] [place] [address] Assigned Nephrology Provider 04/25/22 Chapin Ruvalcaba MD [address] [address] Assigned Gastroenterology Provider 06/13/22 06/19/22 Romi Fairbanks MD [address] [address] Assigned Gastroenterology Provider 06/20/22 08/14/22 Danya Barraza [facility] [address] [place] [address] Assigned [place] Pharmacist 12/05/22 Deuce Majano PA-C [address] [place] [address] Assigned Gastroenterology Provider 01/23/23 02/05/23 Chapin Ruvalcaba MD [address] [place] [address] Assigned Gastroenterology Provider 02/06/23 documented as of this encounter
--- OUTSIDE RECORDS SUMMARY | 2023-03-14 02:44 | XMS_ITS | Encounter Summary ---
Author Name Unknown Organization [place] Address [address] [place] [address]. [place] [address] Care Team Providers Care Repair Coil Winder Name Role Phone Chapin Khan MD Unavailable +[phone] Brionna Covarrubias RN Unavailable [phone] Driss Morales MD Unavailable [phone] Danya Barraza [facility] Unavailable +[phone] Romi Fairbanks MD Unavailable [phone] Maximino Arredondo MD Primary Care Provider +[phone] Luke Carvalho MD Unavailable [phone] Carmen Chapman APRN GAS TURBINE ASSEMBLER Unavailable + Sarah Heard RN Unavailable Unavailable Danya Barraza [facility] Unavailable +[phone]- Danya Barraza [facility] Unavailable +[phone] Danya Pena Unavailable Unavailable Jeanette French RN Unavailable [phone] Tammy Greenberg MD Unavailable +[phone] Genaro Palacios MD Unavailable +[phone] Claude Rucker MD Unavailable [phone] Delroy Gore APRN GAS TURBINE ASSEMBLER Unavailable [phone] Chapin Ruvalcaba MD Unavailable + [phone] Romi Fairbanks MD Unavailable +[phone] Madi Danyashayne Lopez [facility] Unavailable [phone] Deuce Majano PA-C Unavailable +[phone] Chapin Ruvalcaba MD Unavailable + [phone] Encounter Details Date Type Department Care Team (Late st Contact Info) Description 04/10/2021 MyC Medical Advice Initial Department [facility] [place] Social History Tobacco Use Types Packs/Day Years Used Date Smoking Tobacco: Former Cigarettes 0.8 50 Q uit: 12/04/2019 Smokeless Tobacco: Never Alcohol Use Standard [...] PHQ-2 Answer Date Recorded PHQ-2 Score 0 06/07/2020 Sex and Gender Information Value Date Recorded Sex Assigned at Male 05/02/2020 10:54 AM CDT Gender Identity Male 05/02/2020 10:54 AM CDT Sexual Orientation Straight 05/02/2020 10 :54 AM CDT documented as of this encounter Plan of Treatment Upcoming Encounters Date Type Department Care Team (Late st Contact Info) Description 04/01/2023 1:15 PM TOP FLAVOR ATTENDANT Office Visit [address] [address] Yolanda Wilkerson PA-C [address] [place] [address] 278955 07/13/2023 8:00 AM CDT Virtual Visit [facility] Gastroenterology Clinic [address] [place] [address] Deuce Majano PA-C [address] [place] [address] 565115 documented as of this encounter Visit Diagnoses Not on filedocumented in this encounter Additional Health Concerns Infection Onset Date Last Indicated Resolved Time COVID-19 01/02/2022 01/02/2022 01/16/2022 7:58 AM TOP FLAVOR ATTENDANT Recovered COVID 01/16/2022 01/16/2022 04/01/2022 1 1:39 PM TOP FLAVOR ATTENDANT Rule Out C-difficile 03/10/2023 03/10/2023 024 5:57 PM TOP FLAVOR ATTENDANT documented as of this encounter Care Teams Repair Coil Winder Relationship Specialty Start Date End Date [place] [address] PCP - General Family Medicine 04/02/21 Chapin Khan MD [address] [place] [address]69 Urology 05/10/20 Brionna Covarrubias, [place] Registered Nurse Oncology 05/10/20 09/01/22 Driss Morales MD [address] [place] [address] [phone] Assigned Surgical Provider 11/17/20 04/10/22 Danya Barraza, [facility] [address] [place] [address] 429355 Pharmacist Pharmacist Counter Tender 12/25/20 Romi Fairbanks MD [address] 502525 Assigned Gastroenterology Provider 01/05/21 06/12/22 Luke Carvalho MD [address] [place] [address] [phone] Assigned Heart and Vascular Provider 03/30/21 12/12/21 Carmen Chapman APRN GAS TURBINE ASSEMBLER [address] [place] [address] Assigned PCP 04/27/21 03/27/22 Sarah Heard, [place] Specialty Supply Chain Technician Gastroenterology 05/14/21 12/29/21 [facility] [address] [place] [address] Assigned MTM Pharmacist 07/12/21 [facility] [address] [place] [address] 21796 Assigned MTM Pharmacist 11/12/21 Danya Pena Assigned Heart and Vascular Provider 12/13/21 01/02/22 Jeanette French RN [address] [place] [address] Specialty Supply Chain Technician Gastroenterology 12/30/21 Tammy Greenberg MD [address] [place] [address] 508 [place] [address] Cardiovascular Disease 02/24/22 Genaro Palacios MD [address] [place] [address] Assigned Heart and Vascular Provider 03/28/22 Claude Rucker MD [address] [place] [address] 10296 Assigned Surgical Provider 04/11/22 Delroy Gore APRN [facility] [address] [place] [address] Assigned Nephrology Provider 04/25/22 Chapin Ruvalcaba MD [address] [place] [address] [phone] Assigned Gastroenterology Provider 06/13/22 06/19/22 Romi Fairbanks MD [address] 251605 Assigned Gastroenterology Provider 06/20/22 08/14/22 Danya Barraza [facility] [address] [place] [address] [phone] Assigned [place] Pharmacist 12/05/22 Deuce Majano PA-C [address] [place] [address] [phone] Assigned Gastroenterology Provider 01/23/23 02/05/23 Chapin Ruvalcaba MD [address] [facility] [address] [place], [place] 830405 Assigned Gastroenterology Provider 02/06/23 documented as of this encounter
--- OUTSIDE RECORDS SUMMARY | 2023-03-14 02:44 | XMS_ITS | Encounter Summary ---
Author Name Unknown Organization [place] Address [address] [place] [address] Care Team Providers Care Waterside Worker Name Role Phone Makayla Brett Pascual Primary Care Provider Chapin Khan MD Unavailable [phone] Brionna Covarrubias RN Unavailable [phone] Danya Pena Unavailable Unavailable Driss Morales MD Unavailable +[phone] Danya Barraza [facility] Unavailable Romi Fairbanks MD Unavailable [phone] Maximino Arredondo MD Primary Care Provider Luke Carvalho MD Unavailable [phone] Carmen Chapman APRN [facility] Unavailable + Sarah Heard RN Unavailable Unavailable Danya Barraza [facility] Unavailable Danya Barraza [facility] Unavailable [phone] Danya Pena Unavailable Unavailable Jeanette French RN Unavailable +[phone] Tammy Greenberg MD Unavailable +[phone] Genaro Palacios MD Unavailable +[phone] Claude Rucker MD Unavailable +[phone] Delroy Gore APRN TELECOMMUNICATIONS NETWORK ENGINEER Unavailable +[phone] Chapin Ruvalcaba MD Unavailable + [phone] Romi Fairbanks MD Unavailable +[phone] NakulDanya vides [facility] Unavailable +[phone] Deuce Majano PA-C Unavailable +[phone] Chapin Ruvalcaba MD Unavailable + [phone] Encounter Details Date Type Department Care Team (Late st Contact Info) Description 01/31/[address] [facility] [address] [address] Lourdes Villalpando Social History Tobacco Use Types Packs/Day Years [...] or suspected to have Coronavirus / COVID-19? Unable to assess 01/27/2021 2:27 PM HOUSE STEWARD/STEWARDESS documented as of this encounter Plan of Treatment Upcoming Encounters Date Type Department Care Team (Late st Contact Info) Description 04/01/2023 1:15 PM HOUSE STEWARD/STEWARDESS Office Visit [address] [address] Yolanda Wilkerson PA-C [address] [place] [address] 07/13/2023 8:00 AM CDT Virtual Visit [facility] [address] 4th [place] [phone] Deuce Majano PA-C [address] [place] [address] documented as of this encounter Visit Diagnoses Not on filedocumented in this encounter Additional Health Concerns Infection Onset Date Last Indicated Resolved Time COVID-19 01/02/2022 01/02/2022 01/16/2022 7:58 AM HOUSE STEWARD/STEWARDESS Recovered COVID 01/16/2022 01/16/2022 04/01/2022 1 1:39 PM HOUSE STEWARD/STEWARDESS Rule Out C-difficile 03/10/2023 03/10/2023 024 5:57 PM HOUSE STEWARD/STEWARDESS documented as of this encounter Care Teams Waterside Worker Relationship Specialty Start Date End Date Brett Kan [address] [place] [address] PCP - General Family Medicine 03/20/20 04/01/21 Maximino Arredondo MD [address] [place] [address] PCP - General Family Medicine 04/02/21 Chapin Khan MD [address] [place] [address] [id number] Urology 05/10/20 Brionna Covarrubias, RN Registered Nurse Oncology 05/10/20 09/01/22 Danya Pena Assigned Heart and Vascular Provider 08/11/20 03/29/21 Driss Morales MD [address] [place] [address] Assigned Surgical Provider 11/17/20 04/10/22 Danya Barraza [facility] [address] [place] [address] 47687 Pharmacist Pharmacist Oil And Gas Drafter 12/25/20 Romi Fairbanks MD [address] [address] Assigned Gastroenterology Provider 01/05/21 06/12/22 Luke Carvalho MD [address] [place] [address]107 Assigned Heart and Vascular Provider 03/30/21 12/12/21 Carmen Chapman APRN [facility] [address] [place] [address] Assigned PCP 04/27/21 03/27/22 Sarah Heard, RN Specialty Mold Engraver Gastroenterology 05/14/21 12/29/21 [facility] [address] [place] [address] 516[address] Assigned MTM Pharmacist 07/12/21 Danya Barraza, [facility] [address] [place] [address] 52485 Assigned MTM Pharmacist 11/12/21 Danya Pena Assigned Heart and Vascular Provider 12/13/21 01/02/22 Jeanette French, RN [address] [place] [address] 689885 Specialty Mold Engraver Gastroenterology 12/30/21 Tammy Greenberg MD [address] [place] [address] 508 [place] [address] Cardiovascular Disease 02/24/22 Genaro Palacios MD [address] [facility] [address] [place], [place] 814195 Assigned Heart and Vascular Provider 03/28/22 Claude Rucker MD [address] [place] [address] 956615 Assigned Surgical Provider 04/11/22 Delroy Gore, WIND TURBINE SHEET METAL WORKER TELECOMMUNICATIONS NETWORK ENGINEER [address] [place] [address] 734425 Assigned Nephrology Provider 04/25/22 Chapin Ruvalcaba MD [address] [place] [address] [address] [place], [place] 979225 Assigned Gastroenterology Provider 06/13/22 06/19/22 Romi Fairbanks MD [facility] [address] [place], [place] 684045 Assigned Gastroenterology Provider 06/20/22 08/14/22 Danya Barraza, [facility] [address] [place] [address] Assigned MTM Pharmacist 12/05/22 Deuce Majano PA-C [address] [place] [address] Assigned Gastroenterology Provider 01/23/23 02/05/23 Chapin Ruvalcaba MD 6 [facility] [address] [place] [address] Assigned Gastroenterology Provider 02/06/23 documented as of this encounter
--- OUTSIDE RECORDS SUMMARY | 2023-03-14 02:44 | XMS_ITS | Encounter Summary ---
Author Name Unknown Organization [place] Address [address] [place] [address] Care Team Providers Care Instructor Apparel Manufacture Name Role Phone Makayla Brett Pascual Primary Care Provider + [phone] Chapin Khan MD Unavailable +[phone] Brionna Covarrubias RN Unavailable [phone] Danya Pena Unavailable [facility]available [facility] Unavailable +[phone] Driss Morales MD Unavailable [phone] Danya Barraza [facility] Unavailable +1- Chapin Ruvalcaba MD Unavailable +[phone] Romi Fairbanks MD Unavailable +[phone] Maximino Arredondo MD Primary Care Provider [phone] Luke Carvalho MD Unavailable [phone] Caremn Chapman SEA FOAM KISS MAKER WIC SITE COORDINATOR Unavailable + Sarah Heard RN Unavailable Unavailable Danya Barraza [facility] Unavailable +1- Danya Barraza [facility] Unavailable +1- Danya Pena Unavailable Unavailable Jeanette French RN Unavailable [phone] Tammy Greenberg MD Unavailable Genaro Palacios MD Unavailable +[phone] Claude Rucker MD Unavailable +[phone] Delroy Gore APRN [facility] Unavailable +[phone] Chapin Ruvalcaba MD Unavailable + [phone] Romi Fairbanks MD Unavailable +[phone] Danya Barraza [facility] Unavailable +[phone] Deuce Majano PA-C Unavailable +[phone] Chapin Ruvalcaba MD Unavailable + [phone] Reason for Visit * Reason Onset Date Comments Transplant 12/06/2020 Eplet Consent Encounter Details Date Type Department Care Team (Late st Contact Info) Description 12/06/2020 Telephone [facility] Transplant Clinic [address] [place] [address] Kandis Concepcion LPN Transplant (Eplet Consent) Social History Tobacco Use Types Packs/Day Years [...] encounter Miscellaneous Notes * Telephone Encounter - Kandis Concepcion LPN - 12/06/2020 6:23 AM CDT Obtained consent for Eplet testing via ms from patient; emailed written consent via jellyfish today. Patient aware. documented in this encounter Plan of Treatment Upcoming Encounters Date Type Department Care Team (Late st Contact Info) Description 04/01/2023 1:15 PM PHOTO EQUIPMENT TECHNICIAN Office Visit [address] [phone] Yolanda Wilkerson PA-C [address] [place] [address] 07/13/2023 8:00 AM CDT Virtual Visit [facility] Gastroenterology Clinic [address]th [place] [address] Deuce Majano PA-C [address] [place] [address] 005665 documented as of this encounter Visit Diagnoses Not on filedocumented in this encounter Additional Health Concerns Infection Onset Date Last Indicated Resolved Time COVID-19 01/02/2022 01/02/2022 01/16/2022 7:58 AM PHOTO EQUIPMENT TECHNICIAN Recovered COVID 01/16/2022 01/16/2022 04/01/2022 1 1:39 PM PHOTO EQUIPMENT TECHNICIAN Rule Out C-difficile 03/10/2023 03/10/2023 024 5:57 PM PHOTO EQUIPMENT TECHNICIAN documented as of this encounter Care Teams Instructor Apparel Manufacture Relationship Specialty Start Date End Date Brett Kan [address] [place] [address] PCP - General Family Medicine 03/20/20 04/01/21 Maximino Arredondo MD [address] [place] [address] PCP - General Family Medicine 04/02/21 Chapin Khan MD [address] [place] [address] Urology 05/10/20 Brionna Covarrubias, RN Registered Nurse Oncology 05/10/20 09/01/22 Danya Pena Assigned Heart and Vascular Provider 08/11/20 03/29/21 Romi Fairbanks MD [address] 966875 Assigned Gastroenterology Provider 08/18/20 12/21/20 Driss Morales MD [address] [place] [address] 459975 Assigned Surgical Provider 11/17/20 04/10/22 [facility] [address] [place] [address] 656195 Pharmacist Pharmacist Stripper Machine Operator 12/25/20 Chapin Ruvalcaba MD [address] [place] [address] [address] [place], [place] 364[address] Assigned Gastroenterology Provider 12/22/20 01/04/21 Romi Fairbanks MD [address] 113215 Assigned Gastroenterology Provider 01/05/21 06/12/22 Luke Carvalho MD [address] [place] [address] 643955 Assigned Heart and Vascular Provider 03/30/21 12/12/21 Carmen Chapman APRN WIC SITE COORDINATOR [address] [place] [address] Assigned PCP 04/27/21 03/27/22 Sarah Heard RN Specialty Manager Utilization Management Gastroenterology 05/14/21 12/29/21 [facility] [address] [place] [address] 28187 Assigned MTM Pharmacist 07/12/21 Danya Barraza [facility] [address] [place] [address] Assigned MTM Pharmacist 11/12/21 Danya Pena Assigned Heart and Vascular Provider 12/13/21 01/02/22 Jeanette French RN [address] [place] [address] 099705 Specialty Manager Utilization Management Gastroenterology 12/30/21 Tammy Greenberg MD [address] [place] [address] 508 [place], [place] 514655 Cardiovascular Disease 02/24/22 Genaro Palacios MD [address] [facility] [address] [place], [place] 906535 Assigned Heart and Vascular Provider 03/28/22 Claude Rucker MD [address] [place] [address] 833255 Assigned Surgical Provider 04/11/22 Delroy Gore APRN WIC SITE COORDINATOR [address] [place] [address] Assigned Nephrology Provider 04/25/22 Chapin Ruvalcaba MD [address] [place] [address] 1[address] [place] [address] Assigned Gastroenterology Provider 06/13/22 06/19/22 Romi Fairbanks MD [facility] [address] [place], [place] 257605 Assigned Gastroenterology Provider 06/20/22 08/14/22 Danya Barraza, [facility] [address] [place] [address] 466295 Assigned MTM Pharmacist 12/05/22 Deuce Majano PA-C [address] [place] [address] 522135 Assigned Gastroenterology Provider 01/23/23 02/05/23 Chapin Ruvalcaba MD [address] 408985 Assigned Gastroenterology Provider 02/06/23 documented as of this encounter
--- OUTSIDE RECORDS SUMMARY | 2023-03-14 02:44 | XMS_ITS | Encounter Summary ---
Author Name Unknown Organization [place] Address [address] [place] [address] Care Team Providers Care Inside Wireman Name Role Phone Makayla Brett Pascual Primary Care Provider + [phone] Chapin Khan MD Unavailable +[phone] Brionna Covarrubias RN Unavailable +[phone] Danya Pena Unavailable [facility]available [facility] Unavailable +[phone] Driss Morales MD Unavailable [phone] Danya Barraza [facility] Unavailable +1- Chapin Ruvalcaba MD Unavailable +[phone] Romi Fairbanks MD Unavailable +[phone] Maximino Arredondo MD Primary Care Provider [phone] Luke Carvalho MD Unavailable [phone] Carmen Chapman STAFFING EXECUTIVE DESIGNER ARCHITECT Unavailable + Sarah Heard RN Unavailable Unavailable Danya Barraza [facility] Unavailable +1- Danya Barraza [facility] Unavailable +1- Danya Pena Unavailable Unavailable Jeanette French RN Unavailable [phone] Tammy Greenberg MD Unavailable Genaro Palacios MD Unavailable +[phone] Claude Rucker MD Unavailable +[phone] Delroy Gore APRN [facility] Unavailable [phone] Chapin Ruvalcaba MD Unavailable + [phone] Romi Fairbanks MD Unavailable +[phone] Danya Barraza [facility] Unavailable +[phone] Deuce MajanoC Unavailable +[phone] Chapin Ruvalcaba MD Unavailable + [phone] Encounter Details Date Type Department Care Team (Late Contact Info) Description 12/13/2020 [facility] Cancer [address] [address] Caitlin De Leon Social History Tobacco Use Types Packs/Day Years [...] have Coronavirus / COVID-19? No / Unsure 12/10/2020 8:11 AM CDT documented as of this encounter Plan of Treatment Upcoming Encounters Date Type Department Care Team (Late st Contact Info) Description 04/01/2023 1:15 PM FIRE INSPECTOR Office Visit [address] [address] Yolanda Wilkerson PA-C [address] [place] [address] 07/13/2023 8:00 AM CDT Virtual Visit [facility] Gastroenterology Clinic [address] 4th [place] [phone] Deuce Majano PA-C [address] [place] [address] documented as of this encounter Visit Diagnoses Not on filedocumented in this encounter Additional Health Concerns Infection Onset Date Last Indicated Resolved Time COVID-19 01/02/2022 01/02/2022 01/16/2022 7:58 AM FIRE INSPECTOR Recovered COVID 01/16/2022 01/16/2022 04/01/2022 1 1:39 PM FIRE INSPECTOR Rule Out C-difficile 03/10/2023 03/10/2023 024 5:57 PM FIRE INSPECTOR documented as of this encounter Care Teams Inside Wireman Relationship Specialty Start Date End Date Brett Kan [address] [place] [address] PCP - General Family Medicine 03/20/20 04/01/21 Maximino Arredondo MD [address] [place] [phone] PCP - General Family Medicine 04/02/21 Chapin Khan MD [address] [place] [address] 770135 Urology 05/10/20 Brionna Covarrubias, RN Registered Nurse Oncology 05/10/20 09/01/22 Danya Pena Assigned Heart and Vascular Provider 08/11/20 03/29/21 Romi Fairbanks MD [address] 938065 Assigned Gastroenterology Provider 08/18/20 12/21/20 Driss Morales MD [address] [place] [address] 366585 Assigned Surgical Provider 11/17/20 04/10/22 [facility] [address] [place] [address] 449515 Pharmacist Pharmacist Safety Fire Boss 12/25/20 Chapin Ruvalcaba MD [address] [place], [place] [address]B [address]E [place], [place] 746455 Assigned Gastroenterology Provider 12/22/20 01/04/21 Romi Fairbanks MD [address] 068095 Assigned Gastroenterology Provider 01/05/21 06/12/22 Luke Carvalho MD [address] [place] [address] 985665 Assigned Heart and Vascular Provider 03/30/21 12/12/21 Carmen Chapman APRN DESIGNER ARCHITECT [address] [place] [address] Assigned PCP 04/27/21 03/27/22 Sarah Heard, FATOUMATA Specialty Food Order Expediter Gastroenterology 05/14/21 12/29/21 [facility] [address] [place] [address] 489[address] Assigned MTM Pharmacist 07/12/21 [facility] [address] [place] [address] 34052 Assigned MTM Pharmacist 11/12/21 Danya Pena Assigned Heart and Vascular Provider 12/13/21 01/02/22 Jeanette French RN [address] [place] [address] 312505 Specialty Food Order Expediter Gastroenterology 12/30/21 Tammy Greenberg MD [address] [place] [address] 508 [place], [place] 176365 Cardiovascular Disease 02/24/22 Genaro Palacios MD [address] [place] [address] [address] [place], [place] 156655 Assigned Heart and Vascular Provider 03/28/22 Claude Rucker MD [address] [place] [address] 777845 Assigned Surgical Provider 04/11/22 Delroy Gore APRN [facility] [address] [place] [address] 52069 Assigned Nephrology Provider 04/25/22 Chapin Ruvalcaba MD 6 [facility] [address] [place] [address] Assigned Gastroenterology Provider 06/13/22 06/19/22 Romi Fairbanks MD [facility] 909 [place], [place] 494855 Assigned Gastroenterology Provider 06/20/22 08/14/22 [facility] 9 [place], [place] 377595 Assigned [place] Pharmacist 12/05/22 Deuce Majano PA-C [address] [place] [address] 398005 Assigned Gastroenterology Provider 01/23/23 02/05/23 Chapin Ruvalcaba MD 6 [facility] [address] [place] [address] 707815 Assigned Gastroenterology Provider 02/06/23 documented as of this encounter
--- OUTSIDE RECORDS SUMMARY | 2023-03-14 02:44 | XMS_ITS | Encounter Summary ---
Author Name Unknown Organization [place] Address [address] [place] [address]. [place] [address] Care Team Providers Care Meter Calibrator Name Role Phone Makayla NagytonBrett Primary Care Provider Chapin Khan MD Unavailable +[phone] Brionna Covarrubias RN Unavailable [phone] Danya Pena Unavailable Unavailable Driss Morales MD Unavailable [phone] Danya Barraza [facility] Unavailable Chapin Ruvalcaba MD Unavailable +[phone] Romi Fairbanks MD Unavailable Maximino Arredondo MD Primary Care Provider Luke Carvalho MD Unavailable [phone] Carmen Chapman APRN [facility] Unavailable + Sarah Heard RN Unavailable Unavailable Danya Barraza [facility] Unavailable Danya Barraza [facility] Unavailable [phone] Danya Pena Unavailable Unavailable Jeanette French RN Unavailable +[phone] Tammy Greenberg MD Unavailable [phone] Genaro Palacios MD Unavailable +[phone] Claude Rucker MD Unavailable +[phone] Bao Delroy Gold EMILY GEAR CUTTING MACHINE OPERATOR Unavailable [phone] Chapin Ruvalcaba MD Unavailable +[phone] Romi Fairbanks MD Unavailable [phone] Danya Barraza [facility] Unavailable +[phone] Deuce Majano PA-C Unavailable [phone] Chapin Ruvalcaba MD Unavailable [phone] Encounter Details Date Type Department Care Team (Late st Contact Info) Description 01/03/2021 [facility] Medical Advice [facility] [address] [address] [address] [address] Social History Tobacco Use Types [...] encounter Miscellaneous Notes * Telephone Encounter - Danya Barraza RP - 01/07/2021 2:05 PM GENERAL SUPERINTENDENT Monae from Dr. Makayla Pascual's office contacted me to say he would be absolutely willing to help with this if we could fax him an outline. FAX: [phone] I asked if they can view my note from 12/25 and she verifies that she can. We also confirmed understanding of how to read the table included, and we discussed the descriptive text as well. She will let Dr. Makayla Pascual know about the note. Contact information is in the note if they would like to call me back. No need to fax at this time. RAL SUPERINTENDENT * Telephone Encounter - Danya Barraza RP - 01/07/2021 12:41 PM GENERAL SUPERINTENDENT Contacted Dr. Makayla Pascual's office and left a message with his care team. Left my contact information for return call to discuss getting vaccines. RAL SUPERINTENDENT documented in this encounter Plan of Treatment Upcoming Encounters Date Type Department Care Team (Late st Contact Info) Description 04/01/2023 1:15 PM GENERAL SUPERINTENDENT Office Visit [address] [address] Yolanda Wilkerson PA-C [address] [place] [address] 07/13/2023 8:00 AM CDT Virtual Visit [facility] [address]th [place] [address] Deuce Majano PA-C [address] [place] [address] documented as of this encounter Visit Diagnoses Not on filedocumented in this encounter Additional Health Concerns Infection Onset Date Last Indicated Resolved Time COVID-19 01/02/2022 01/02/2022 01/16/2022 7:58 AM GENERAL SUPERINTENDENT Recovered COVID 01/16/2022 01/16/2022 04/01/2022 1 1:39 PM GENERAL SUPERINTENDENT Rule Out C-difficile 03/10/2023 03/10/2023 024 5:57 PM GENERAL SUPERINTENDENT documented as of this encounter Care Teams Meter Calibrator Relationship Specialty Start Date End Date Brett Kan [address] [place] [address] PCP - General Family Medicine 03/20/20 04/01/21 Maximino Arredondo MD [address] [place] [phone] PCP - General Family Medicine 04/02/21 Chapin Khan MD [address] [place] [address] Urology 05/10/20 Brionna Covarrubias, RN Registered Nurse Oncology 05/10/20 09/01/22 Danya Pena Assigned Heart and Vascular Provider 08/11/20 03/29/21 Driss Morales MD [address] [place] [address] 811615 Assigned Surgical Provider 11/17/20 04/10/22 Danya Barraza [facility] [address] [place] [address] 172925 Pharmacist Pharmacist Food And Beverage Outlets Manager 12/25/20 Chapin Ruvalcaba MD [address] [address] Assigned Gastroenterology Provider 12/22/20 01/04/21 Romi Fairbanks MD [address] [address] Assigned Gastroenterology Provider 01/05/21 06/12/22 Luke Carvalho MD [address] [place] [address] 360965 Assigned Heart and Vascular Provider 03/30/21 12/12/21 Carmen Chapman APRN CNP [facility] [place], [place] 0447692 Assigned PCP 04/27/21 03/27/22 Sarah Heard RN Specialty Tree Trimming Line Technician Gastroenterology 05/14/21 12/29/21 Danya Barraza [facility] [address] [place] [address] 27[address] Assigned MTM Pharmacist 07/12/21 Danya Barraza [facility] [address] [place] [address] 19922 Assigned MTM Pharmacist 11/12/21 Danya Pena Assigned Heart and Vascular Provider 12/13/21 01/02/22 Jeanette French, FATOUMATA [address] [place] [address] Specialty Tree Trimming Line Technician Gastroenterology 12/30/21 Tammy Greenberg MD 420 [facility] 508 [place] [address] Cardiovascular Disease 02/24/22 Genaro Palacios MD [address] [facility] [address] [place], [place] 312075 Assigned Heart and Vascular Provider 03/28/22 Claude Rucker MD [address] [place] [address] 861915 Assigned Surgical Provider 04/11/22 Delroy Gore APRN GEAR CUTTING MACHINE OPERATOR [address] [place] [address] 241475 Assigned Nephrology Provider 04/25/22 Chapin Ruvalcaba MD 6 [facility] [address] [place], [place] 324505 Assigned Gastroenterology Provider 06/13/22 06/19/22 Romi Fairbanks MD [facility] 909 [place], [place] 925175 Assigned Gastroenterology Provider 06/20/22 08/14/22 Danya Barraza, [facility] [address] [place] [address] 214295 Assigned MTM Pharmacist 12/05/22 Deuce Majano PA-C [address] [place] [address] 867795 Assigned Gastroenterology Provider 01/23/23 02/05/23 Chapin Ruvalcaba MD [facility] [address] [place] [address] Assigned Gastroenterology Provider 02/06/23 documented as of this encounter
--- OUTSIDE RECORDS SUMMARY | 2023-03-14 02:44 | XMS_ITS | Encounter Summary ---
Author Name Unknown Organization [facility] Address [address] [place] [address]. [place] [address] Care Team Providers Care Concrete Block Layer Name Role Phone Chapin Khan MD Unavailable +[phone] Brionna Covarrubias RN Unavailable +[phone] Driss Morales MD Unavailable +[phone] Danya Barraza [facility] Unavailable +[phone] Romi Fairbanks MD Unavailable +[phone] Maximino Arredondo MD Primary Care Provider +[phone] Luke Carvalho MD Unavailable +[phone] Carmen Chapman APRN [employer] OPERATOR Unavailable + Sarah Heard RN Unavailable Unavailable Danya Barraza [facility] Unavailable +1- Danya Barraza [facility] Unavailable +[phone] Danya Pena Unavailable Unavailable Jeanette French RN Unavailable +[phone] Tammy Greenberg MD Unavailable +[phone] Genaro Palacios MD Unavailable +[phone] Claude Rucker MD Unavailable +[phone] Delroy Gore APRN [employer] OPERATOR Unavailable +[phone] Chapin Ruvalcaba MD Unavailable + [phone] Romi Fairbanks MD Unavailable +-[phone] Madi Danya John [facility] Unavailable +[phone] Deuce Majano PA-C Unavailable +[phone] Chapin Ruvalcaba MD Unavailable + [phone] Encounter Details Date Type Department Care Team (Late st Contact Info) Description 04/05/[address] [facility] [address] [place] [address] Driss Morales MD [address] [address] Social History Tobacco Use Types [...] st Contact Info) Description 04/01/2023 1:15 PM ANTISUBMARINE WEAPONS OFFICER Office Visit [address] [phone] Yolanda Wilkerson PA-C [address] [place] [address] 07/13/2023 8:00 AM CDT Virtual Visit [facility] [place] [address] [place] [address] 4th [place] [phone] Deuce Majano PA-C [address] [place] [address] [phone] documented as of this encounter Visit Diagnoses Not on filedocumented in this encounter Additional Health Concerns Infection Onset Date Last Indicated Resolved Time COVID-19 01/02/2022 01/02/2022 01/16/2022 7:58 AM ANTISUBMARINE WEAPONS OFFICER Recovered COVID 01/16/2022 01/16/2022 04/01/2022 1 1:39 PM ANTISUBMARINE WEAPONS OFFICER Rule Out C-difficile 03/10/2023 03/10/2023 024 5:57 PM ANTISUBMARINE WEAPONS OFFICER documented as of this encounter Care Teams Concrete Block Layer Relationship Specialty Start Date End Date Maximino Arredondo MD [address] [place] [address] PCP - General Family Medicine 04/02/21 Chapin Khan MD [address] [place] [address] Urology 05/10/20 Brionna Covarrubias, FATOUMATA Registered Nurse Oncology 05/10/20 09/01/22 Driss Morales MD [address] [place] [address] [address] [place], [place] 681175 Assigned Surgical Provider 11/17/20 04/10/22 Danya Braraza, [facility] [address] [place] [address] [phone] Pharmacist Pharmacist Training Engineer 12/25/20 Romi Fairbanks MD [address] 869875 Assigned Gastroenterology Provider 01/05/21 06/12/22 Luke Carvalho MD [address] [place] [address] Assigned Heart and Vascular Provider 03/30/21 12/12/21 Carmen Chapman APRN CNP [address] [place], [place] [phone] Assigned PCP 04/27/21 03/27/22 Sarah Heard RN Specialty Transportation Engineering Technician Gastroenterology 05/14/21 12/29/21 Danya Barraza [facility] [address] [place] [address] Assigned MTM Pharmacist 07/12/21 Danya Barraza [facility] [address] [place] [address] 44[address] Assigned MTM Pharmacist 11/12/21 Danya Pena Assigned Heart and Vascular Provider 12/13/21 01/02/22 Jeanette French, FATOUMATA [address] [place] [address] 538205 Specialty Transportation Engineering Technician Gastroenterology 12/30/21 Tammy Greenberg MD [address] [place] [address] [address] [place] [address] Cardiovascular Disease 02/24/22 Genaro Palacios MD [address] [place] [address] Assigned Heart and Vascular Provider 03/28/22 Claude Rucker MD [address] [place] [address] 230535 Assigned Surgical Provider 04/11/22 Delroy Gore, SLIP MAKER [facility] [address] [place] [address] 082875 Assigned Nephrology Provider 04/25/22 Chapin Ruvalcaba MD [address] [place] [address] 736325 Assigned Gastroenterology Provider 06/13/22 06/19/22 Romi Fairbanks MD [address] 755365 Assigned Gastroenterology Provider 06/20/22 08/14/22 Danya Barraza, [facility] [address] [place] [address] 420275 Assigned MTM Pharmacist 12/05/22 Deuce Majano PA-C [address] [place] [address] [phone] Assigned Gastroenterology Provider 01/23/23 02/05/23 Chapin Ruvalcaba MD [address] [place] [address] [phone] Assigned Gastroenterology Provider 02/06/23 documented as of this encounter
--- OUTSIDE RECORDS SUMMARY | 2023-03-14 02:44 | XMS_ITS | Encounter Summary ---
Author Name Unknown Organization [facility] Address [address] [place] [address]. [place] [address] Care Team Providers Care Jewel Cupping Machine Operator Name Role Phone Chapin Khan MD Unavailable +[phone] Brionna Covarrubias RN Unavailable [phone] Driss Morales MD Unavailable +[phone] Danya Barraza [facility] Unavailable +[phone] Romi Fairbanks MD Unavailable [phone] Maximino Arredondo MD Primary Care Provider +[phone] Luke Carvalho MD Unavailable +[phone] Carmen Chapman APRN LEGAL TRANSCRIPTIONIST Unavailable + Sarah Headr RN Unavailable Unavailable Danya Barraza [facility] Unavailable +1- Danya Barraaz [facility] Unavailable +[phone] Danya Pena Unavailable Unavailable Jeanette French RN Unavailable +[phone] Tammy Greenberg MD Unavailable +[phone] Genaro Palacios MD Unavailable +[phone] Claude Rucker MD Unavailable +[phone] Delroy Gore APRN LEGAL TRANSCRIPTIONIST Unavailable +[phone] Chapin Ruvalcaba MD Unavailable + [phone] Romi Fairbanks MD Unavailable +-[phone] Madi Danya John [facility] Unavailable +[phone] Deuce Majano PA-C Unavailable +[phone] Chapin Ruvalcaba MD Unavailable + [phone] Encounter Details Date Type Department Care Team (Late st Contact Info) Description 04/05/2021 MyC Medical Advice [facility] [address] [place] [address] Driss Morales MD [address] [address] Social History Tobacco Use Types [...] st Contact Info) Description 04/01/2023 1:15 PM CLAIMS ACCOUNT SPECIALIST Office Visit [address] [phone] Yolanda Wilkerson PA-C [address] [place] [address] 07/13/2023 8:00 AM CDT Virtual Visit [facility] [place] [address] [place] [address] 4th [place] [phone] Deuce Majano PA-C [address] [place] [address] [phone] documented as of this encounter Visit Diagnoses Not on filedocumented in this encounter Additional Health Concerns Infection Onset Date Last Indicated Resolved Time COVID-19 01/02/2022 01/02/2022 01/16/2022 7:58 AM CLAIMS ACCOUNT SPECIALIST Recovered COVID 01/16/2022 01/16/2022 04/01/2022 1 1:39 PM CLAIMS ACCOUNT SPECIALIST Rule Out C-difficile 03/10/2023 03/10/2023 024 5:57 PM CLAIMS ACCOUNT SPECIALIST documented as of this encounter Care Teams Jewel Cupping Machine Operator Relationship Specialty Start Date End Date Maximino Arredondo MD [address] [place] [address] PCP - General Family Medicine 04/02/21 Chapin Khan MD [address] [place] [address] 7[address] Urology 05/10/20 Brionna Covarrubias, FATOUMATA Registered Nurse Oncology 05/10/20 09/01/22 Driss Morales MD [address] [place] [address] 195 [place], [place] 276515 Assigned Surgical Provider 11/17/20 04/10/22 Danya Barraza, [facility] [address] [place] [address] [phone] Pharmacist Pharmacist Retirement Officer 12/25/20 Romi Fairbanks MD [address] [phone] Assigned Gastroenterology Provider 01/05/21 06/12/22 Luke Carvalho MD [address] [place] [address] Assigned Heart and Vascular Provider 03/30/21 12/12/21 Carmen Chapman APRN CNP [address] [place], [place] [phone] Assigned PCP 04/27/21 03/27/22 Sarah Heard RN Specialty Commercial Production Editor Gastroenterology 05/14/21 12/29/21 Danya Barraza [facility] [address] [place] [address] Assigned MTM Pharmacist 07/12/21 Danya Barraza [facility] [address] [place] [address] 682[address] Assigned MTM Pharmacist 11/12/21 Danya Pena Assigned Heart and Vascular Provider 12/13/21 01/02/22 Jeanette French, FATOUMATA [address] [place] [address] [phone] Specialty Commercial Production Editor Gastroenterology 12/30/21 Tammy Greenberg MD [address] [place] [address] 508 [place] [address] Cardiovascular Disease 02/24/22 Genaro Palacios MD [address] [place] [address] Assigned Heart and Vascular Provider 03/28/22 Claude Rucker MD [address] [place] [address] [phone] Assigned Surgical Provider 04/11/22 Delroy Gore, ANKLE PATCH MOLDER [facility] [address] [place] [address] 599135 Assigned Nephrology Provider 04/25/22 Chapin Ruvalcaba MD [address] [place] [address] 087575 Assigned Gastroenterology Provider 06/13/22 06/19/22 Romi Fairbanks MD [address] 791305 Assigned Gastroenterology Provider 06/20/22 08/14/22 Danya Barraza, [facility] [address] [place] [address] [phone] Assigned MTM Pharmacist 12/05/22 Deuce Majano PA-C [address] [place] [address] [phone] Assigned Gastroenterology Provider 01/23/23 02/05/23 Chapin Ruvalcaba MD [address] [place] [address] [phone] Assigned Gastroenterology Provider 02/06/23 documented as of this encounter
--- OUTSIDE RECORDS SUMMARY | 2023-03-14 02:44 | XMS_ITS | Encounter Summary ---
Author Name Unknown Organization [facility] Address [address] [place] [address] Care Team Providers Care Ice Cream Dipper Name Role Phone Makayla Brett Pascual Primary Care Provider + [phone] Chapin Khan MD Unavailable +[phone] Brionna Covarrubias RN Unavailable [phone] Danya Pena Unavailable [facility]available [facility] Un[facility] +[phone] Driss Morales MD Unavailable [phone] Danya Barraza [facility] Unavailable +1- Chapin Ruvalcaba MD Unavailable +[phone] Romi Fairbanks MD Unavailable +[phone] Maximino Arredondo MD Primary Care Provider +[phone] Luke Carvalho MD Unavailable +[phone] Carmen Chapman EQUIPMENT OPERATOR CAPTAIN WAITER/WAITRESS Unavailable + Sarah Heard RN Unavailable Unavailable Danya Barraza [facility] Unavailable +1- Danya Barraza [facility] Unavailable +1- Danya Pena Unavailable Unavailable Jeanette French RN Unavailable +[phone] Tammy Greenberg MD Unavailable Genaro Palacios MD Unavailable +[phone] Claude Rucker MD Unavailable +[phone] Delroy Gore APRN CAPTAIN WAITER/WAITRESS Unavailable +1- Chapin Ruvalcaba MD Unavailable + [phone] Romi Fairbanks MD Unavailable +[phone] Danya Barraza [facility] Unavailable +1- Deuce MajanoC Unavailable +[phone] Chapin Ruvalcaba MD Unavailable + [phone] Encounter Details Date Type Department Care Team (Late st Contact Info) Description 12/05/[address] [facility] [address] [place] [address] Kandis Concepcion LPN Social History Tobacco Use Types Packs/Day Years [...] Contact Info) Description 04/01/2023 1:15 PM MANAGER UNIVERSITY Office Visit [address] [address] Yolanda Wilkerson PA-C [address] [place] [address] 449005 07/13/2023 8:00 AM CDT Virtual Visit [facility] [address] 4th [place] [phone] Deuce Majano PA-C [address] [place] [address] 294185 documented as of this encounter Visit Diagnoses Not on filedocumented in this encounter Additional Health Concerns Infection Onset Date Last Indicated Resolved Time COVID-19 01/02/2022 01/02/2022 01/16/2022 7:58 AM MANAGER UNIVERSITY Recovered COVID 01/16/2022 01/16/2022 04/01/2022 1 1:39 PM MANAGER UNIVERSITY Rule Out C-difficile 03/10/2023 03/10/2023 024 5:57 PM MANAGER UNIVERSITY documented as of this encounter Care Teams Ice Cream Dipper Relationship Specialty Start Date End Date Brett Kan [address] [place] [address] PCP - General Family Medicine 03/20/20 04/01/21 Maximino Arredondo MD [address] [place] [address]44772192 PCP - General Family Medicine 04/02/21 Chapin Khan MD [address] [place] [address] Urology 05/10/20 Brionna Covarrubias, RN Registered Nurse Oncology 05/10/20 09/01/22 Danya Pena Assigned Heart and Vascular Provider 08/11/20 03/29/21 Romi Fairbanks MD [address] [address] Assigned Gastroenterology Provider 08/18/20 12/21/20 Driss Morales MD [address] [place] [address] [phone] Assigned Surgical Provider 11/17/20 04/10/22 Danya Barraza [facility] [address] [place] [address] [phone] Pharmacist Pharmacist Senior Procurement Manager 12/25/20 Chapin Ruvalcaba MD [address] [place] [place], [place] [address]B [address] [place] [address] 697265 Assigned Gastroenterology Provider 12/22/20 01/04/21 Romi Fairbanks MD [address] [address] Assigned Gastroenterology Provider 01/05/21 06/12/22 Luke Carvalho MD [address] [place] [address]2345 Assigned Heart and Vascular Provider 03/30/21 12/12/21 Carmen Chapman APRN [facility] [address] [place], [place] 6016392 Assigned PCP 04/27/21 03/27/22 Sarah Heard, FATOUMATA Specialty Cadastral Engineer Gastroenterology 05/14/21 12/29/21 Danya Barraza [facility] 9 [place] [address] Assigned MTM Pharmacist 07/12/21 Danya Barraza [facility] [address] [place] [address]45[address] Assigned MTM Pharmacist 11/12/21 Danya Pena Assigned Heart and Vascular Provider 12/13/21 01/02/22 Jeanette French RN [address] [place] [address] [phone] Specialty Cadastral Engineer Gastroenterology 12/30/21 Tammy Greenberg MD [address] [place] [address] 508 [place], [place] 327625 Cardiovascular Disease 02/24/22 Genaro Palacios MD [address] [phone] Assigned Heart and Vascular Provider 03/28/22 Claude Rucker MD [address] [place] [address] [phone] Assigned Surgical Provider 04/11/22 Delroy Gore, EQUIPMENT OPERATOR CAPTAIN WAITER/WAITRESS [address] [place] [address] 835175 Assigned Nephrology Provider 04/25/22 Chapin Ruvalcaba MD [address] [facility] [address] [place], [place] 512905 Assigned Gastroenterology Provider 06/13/22 06/19/22 Romi Fairbanks MD [facility] [address] [place], [place] 039265 Assigned Gastroenterology Provider 06/20/22 08/14/22 Danya Barraza, [facility] [address] [place] [address] 809285 Assigned [place] Pharmacist 12/05/22 Deuce Majano PA-C [address] [place] [address] 536215 Assigned Gastroenterology Provider 01/23/23 02/05/23 Chapin Ruvalcaba MD [address] [place] [address] [address] [place], [place] 507345 Assigned Gastroenterology Provider 02/06/23 documented as of this encounter
--- OUTSIDE RECORDS SUMMARY | 2023-03-14 02:44 | XMS_ITS | Encounter Summary ---
Author Name Unknown Organization [facility] Address [address] [place] [address] Care Team Providers Care Hand Flesher Name Role Phone Makayla Brett Pascual Primary Care Provider + [phone] Chapin Khan MD Unavailable +[phone] Brionna Covarrubias RN Unavailable +[phone] Danya Pena Unavailable [facility]available [facility] Un[facility] +[phone] Driss Morales MD Unavailable +[phone] Danya Barraza [facility] Unavailable +1- Chapin Ruvalcaba MD Unavailable +[phone] Romi Fairbanks MD Unavailable +[phone] Maximino Arredondo MD Primary Care Provider +[phone] Luke Carvalho MD Unavailable +[phone] Carmen Chapman ICT SALES REPRESENTATIVE LAPIDARY APPRENTICE Unavailable + Sarah Heard RN Unavailable Unavailable Danya Barraza [facility] Unavailable +1- Danya Barraza [facility] Unavailable +1- Danya Pena Unavailable Unavailable Jeanette French RN Unavailable +[phone] Tammy Greenberg MD Unavailable +[phone] Genaro Palacios MD Unavailable +[phone] Claude Rucker MD Unavailable +[phone] Delroy Gore APRN [facility] Unavailable +1- Chapin Ruvalcaba MD Unavailable + [phone] Romi Fairbanks MD Unavailable +[phone] Danya Barraza [facility] Unavailable +1- Deuce Majano PA-C Unavailable +[phone] Chapin Rvualcaba MD Unavailable + [phone] Encounter Details Date Type Department Care Team (Late st Contact Info) Description 12/05/2020 MyC Medical Advice Initial Department [facility] Social History Tobacco Use Types Packs/Day Years [...] st Contact Info) Description 04/01/2023 1:15 PM SIZING SPRAYER Office Visit [address] [phone] Yolanda Wilkerson, PA-C [address] [place] [address] 07/13/2023 8:00 AM CDT Virtual Visit [facility] [address] [place] [phone] Deuce Majano PA-C [address] [place] [address] 364015 documented as of this encounter Visit Diagnoses Not on filedocumented in this encounter Additional Health Concerns Infection Onset Date Last Indicated Resolved Time COVID-19 01/02/2022 01/02/2022 01/16/2022 7:58 AM SIZING SPRAYER Recovered COVID 01/16/2022 01/16/2022 04/01/2022 1 1:39 PM SIZING SPRAYER Rule Out C-difficile 03/10/2023 03/10/2023 024 5:57 PM SIZING SPRAYER documented as of this encounter Care Teams Hand Flesher Relationship Specialty Start Date End Date Brett Kan [address] [place] [address] PCP - General Family Medicine 03/20/20 04/01/21 Maximino Arredondo MD [address] [place] [address] PCP - General Family Medicine 04/02/21 Chapin Khan MD [address] [place] [address] 6[address] Urology 05/10/20 Brionna Covarrubias, FATOUMATA Registered Nurse Oncology 05/10/20 09/01/22 Danya Pena Assigned Heart and Vascular Provider 08/11/20 03/29/21 Romi Fairbanks MD [address] [address] Assigned Gastroenterology Provider 08/18/20 12/21/20 Driss Morales MD [address] [place] [address] 195 [place] [address] Assigned Surgical Provider 11/17/20 04/10/22 Danya Barraza [facility] [address] [place] [address] 27227 Pharmacist Pharmacist [place] 12/25/20 Chapin Ruvalcaba MD [address] [facility] [address] [place] [address] Assigned Gastroenterology Provider 12/22/20 01/04/21 Romi Fairbanks MD [address] [address] Assigned Gastroenterology Provider 01/05/21 06/12/22 Luke Carvalho MD [address] [place] [address] 9[address]94 Assigned Heart and Vascular Provider 03/30/21 12/12/21 Carmen Chapman APRN LAPIDARY APPRENTICE [address] [place] [address] Assigned PCP 04/27/21 03/27/22 Sarah Heard, FATOUMATA Specialty Health Information Clerk Gastroenterology 05/14/21 12/29/21 [facility] [address] [place] [address] 57564 Assigned MTM Pharmacist 07/12/21 Danya Barraza [facility] [address] [place] [address] [phone] Assigned MTM Pharmacist 11/12/21 Danya Pena Assigned Heart and Vascular Provider 12/13/21 01/02/22 Jeanette French, FATOUMATA [address] [place] [address] [phone] Specialty Health Information Clerk Gastroenterology 12/30/21 Tammy Greenberg MD [address] [place] [address] 508 [place], [place] 604495 Cardiovascular Disease 02/24/22 Genaro Palacios MD [address] [place] [address] 170375 Assigned Heart and Vascular Provider 03/28/22 Claude Rucker MD [address] [place] [address] [phone] Assigned Surgical Provider 04/11/22 Delroy Gore APRN LAPIDARY APPRENTICE [address] [place] [address] 808025 Assigned Nephrology Provider 04/25/22 Chapin Ruvalcaba MD [address] [place] [place], [place] [address]B [address] [place], [place] 119645 Assigned Gastroenterology Provider 06/13/22 06/19/22 Romi Fairbanks MD [facility] [address] [place] [address] Assigned Gastroenterology Provider 06/20/22 08/14/22 Danya Barraza [facility] [address] [place] [address] [phone] Assigned [facility] Pharmacist 12/05/22 Deuce Majano PA-C [address] [place] [address] 148075 Assigned Gastroenterology Provider 01/23/23 02/05/23 Chapin Ruvalcaba MD 6 [facility] [address] 033395 Assigned Gastroenterology Provider 02/06/23 documented as of this encounter
--- OUTSIDE RECORDS SUMMARY | 2023-03-14 02:44 | XMS_ITS | Encounter Summary ---
Author Name Unknown Organization [facility] Address [address] [place] [address]. [place] [address] Care Team Providers Care Inspector Bicycle Name Role Phone Chapin Khan MD Unavailable [phone] Brionna Covarrubias RN Unavailable [phone] Driss Morales MD Unavailable +[phone] Danya Barraza [facility] Unavailable +[phone] Romi Fairbanks MD Unavailable [phone] Maximino Arredondo MD Primary Care Provider +[phone] Luke Carvalho MD Unavailable [phone] Carmen Chapman APRN FUEL PILOT ENGINEER Unavailable + Sarah Heard RN Unavailable Unavailable Danya Barraza [facility] Unavailable +1- Danya Barraza [facility] Unavailable +[phone] Danya Pena Unavailable Unavailable Jeanette French RN Unavailable [phone] Tammy Greenberg MD Unavailable +[phone] Genaro Palacios MD Unavailable +[phone] Claude Rucker MD Unavailable +[phone] Delroy Gore APRN FUEL PILOT ENGINEER Unavailable [phone] Chapin Ruvalcaba MD Unavailable + [phone] Romi Fairbanks MD Unavailable +[phone] Madi Danyashayne Lopez [facility] Unavailable [phone] Deuce Majano PA-C Unavailable + [phone] Chapin Ruvalcaba MD Unavailable + [phone] Encounter Details Date Type Department Care Team (Late st Contact Info) Description 04/05/2021 MyC Medical Advice Initial Department Latrice Petty [...] st Contact Info) Description 04/01/2023 1:15 PM WORD PROCESSING SPECIALIST Office Visit [address] [address] Yolanda Wilkerson PA-C [address] [place] [address] 151365 07/13/2023 8:00 AM CDT Virtual Visit [facility] Gastroenterology Clinic [address] [place] [address] Deuce Majano PA-C [address] [place], [place] [phone] documented as of this encounter Visit Diagnoses Not on filedocumented in this encounter Additional Health Concerns Infection Onset Date Last Indicated Resolved Time COVID-19 01/02/2022 01/02/2022 01/16/2022 7:58 AM WORD PROCESSING SPECIALIST Recovered COVID 01/16/2022 01/16/2022 04/01/2022 1 1:39 PM WORD PROCESSING SPECIALIST Rule Out C-difficile 03/10/2023 03/10/2023 024 5:57 PM WORD PROCESSING SPECIALIST documented as of this encounter Care Teams Inspector Bicycle Relationship Specialty Start Date End Date Maximino Arredondo MD [address] [place] [address] PCP - General Family Medicine 04/02/21 Chapin Khan MD [address] [place] [address] 85681 Urology 05/10/20 Brionna Covarrubias, FATOUMATA Registered Nurse Oncology 05/10/20 09/01/22 Driss Morales MD [address] [place] [address] 723415 Assigned Surgical Provider 11/17/20 04/10/22 Danya Barraza, [facility] [address] [place] [address] [phone] Pharmacist Pharmacist Religious Activities Director 12/25/20 Romi Fairbanks MD [address] 397835 Assigned Gastroenterology Provider 01/05/21 06/12/22 Luke Carvalho MD [address] [place] [address] 816025 Assigned Heart and Vascular Provider 03/30/21 12/12/21 Carmen Chapman APRN FUEL PILOT ENGINEER [address] [place] [address] Assigned PCP 04/27/21 03/27/22 Sarah Heard, FATOUMATA Specialty Public Records Officer Gastroenterology 05/14/21 12/29/21 [facility] [address] [place] [address] Assigned MTM Pharmacist 07/12/21 [facility] [address] [place] [address] 79398 Assigned MTM Pharmacist 11/12/21 Danya Pena Assigned Heart and Vascular Provider 12/13/21 01/02/22 Jeanette French RN [address] [place] [address] 984745 Specialty Public Records Officer Gastroenterology 12/30/21 Tammy Greenberg MD [address] [place] [address] [address] [place] [address] Cardiovascular Disease 02/24/22 Genaro Palacios MD [address] [place] [address] Assigned Heart and Vascular Provider 03/28/22 Claude uRcker MD [address] [place] [address] Assigned Surgical Provider 04/11/22 Delroy Gore APRN [facility] [address] [place] [address] 194785 Assigned Nephrology Provider 04/25/22 Chapin Ruvalcaba MD [address] [place] [address] [address] [place], [place] 381395 Assigned Gastroenterology Provider 06/13/22 06/19/22 Romi Fairbanks MD [address] 354375 Assigned Gastroenterology Provider 06/20/22 08/14/22 Danya Barraza, [facility] [address] [place] [address] 602315 Assigned [place] Pharmacist 12/05/22 Deuce Majano PA-C [address] [place] [address] 583545 Assigned Gastroenterology Provider 01/23/23 02/05/23 Chapin Ruvalcaba MD [facility] [place], [place] 850405 Assigned Gastroenterology Provider 02/06/23 documented as of this encounter
--- OUTSIDE RECORDS SUMMARY | 2023-03-14 02:44 | XMS_ITS | Encounter Summary ---
Author Name Unknown Organization [facility] Address [address] [place] [address]. [place] [address] Care Team Providers Care Cruise Counselor Name Role Phone Chapin Khan MD Unavailable [phone] Brionna Covarrubias RN Unavailable [phone] Driss Morales MD Unavailable +[phone] Danya Barraza [facility] Unavailable [phone] Romi Fairbanks MD Unavailable [phone] Maximino Arredondo MD Primary Care Provider [phone] Luke Carvalho MD Unavailable [phone] Carmen Chapman APRN SHOT EXAMINER Unavailable + Sarah Heard RN Unavailable Unavailable Danya Barraza [facility] Unavailable +[phone]- Danya Barraza [facility] Unavailable +[phone] Danya Pena Unavailable Unavailable Jeanette French RN Unavailable [phone] Tammy Greenberg MD Unavailable +[phone] Genaro Palacios MD Unavailable [phone] Claude Rucker MD Unavailable +[phone] Delroy Gore APRN SHOT EXAMINER Unavailable +[phone] Chapin Ruvalcaba MD Unavailable + [phone] Romi Fairbanks MD Unavailable +[phone] Madi Danyashayne Lopez [facility] Unavailable [phone] Deuce Majano PA-C Unavailable +[phone] Chapin Ruvalcaba MD Unavailable + [phone] Encounter Details Date Type Department Care Team (Late st Contact Info) Description 04/10/2021 MyC Medical Advice Initial Department [facility] Social History Tobacco Use Types Packs/Day Years [...] st Contact Info) Description 04/01/2023 1:15 PM GREEN END DEPARTMENT SUPERVISOR Office Visit [address] [address] Yolanda Wilkerson PA-C [address] [place] [address] 542835 07/13/2023 8:00 AM CDT Virtual Visit [facility] Gastroenterology Clinic [address] [place] [address] Deuce Majano PA-C [address] [place] [address] 203305 documented as of this encounter Visit Diagnoses Not on filedocumented in this encounter Additional Health Concerns Infection Onset Date Last Indicated Resolved Time COVID-19 01/02/2022 01/02/2022 01/16/2022 7:58 AM GREEN END DEPARTMENT SUPERVISOR Recovered COVID 01/16/2022 01/16/2022 04/01/2022 1 1:39 PM GREEN END DEPARTMENT SUPERVISOR Rule Out C-difficile 03/10/2023 03/10/2023 024 5:57 PM GREEN END DEPARTMENT SUPERVISOR documented as of this encounter Care Teams Cruise Counselor Relationship Specialty Start Date End Date [place] [address] PCP - General Family Medicine 04/02/21 Chapin Khan MD [address] [place] [address] 48051 Urology 05/10/20 Brionna Covarrubias, FATOUMATA Registered Nurse Oncology 05/10/20 09/01/22 Driss Morales MD [address] [place] [address] 648605 Assigned Surgical Provider 11/17/20 04/10/22 Danya Barraza, [facility] [address] [place] [address] [phone] Pharmacist Pharmacist Web Production Manager 12/25/20 Romi Fairbanks MD [address] 561735 Assigned Gastroenterology Provider 01/05/21 06/12/22 Luke Carvalho MD [address] [place] [address] [phone] Assigned Heart and Vascular Provider 03/30/21 12/12/21 Carmen Chapman APRN SHOT EXAMINER [address] [place] [address] Assigned PCP 04/27/21 03/27/22 Sarah Heard, FATOUMATA Specialty Wafer Substrate Tester Gastroenterology 05/14/21 12/29/21 [facility] [address] [place] [address] 71409 Assigned MTM Pharmacist 07/12/21 [facility] [address] [place] [address] 88987 Assigned MTM Pharmacist 11/12/21 Danya Pena Assigned Heart and Vascular Provider 12/13/21 01/02/22 Jeanette French RN [address] [place] [address] 71491 Specialty Wafer Substrate Tester Gastroenterology 12/30/21 Tammy Greenberg MD [address] [place] [address] [address] [place] [address] Cardiovascular Disease 02/24/22 Genaro Palacios MD [address] [place] [address] Assigned Heart and Vascular Provider 03/28/22 Claude Rucker MD [address] [place] [address] 48579 Assigned Surgical Provider 04/11/22 Delroy Gore APRN [facility] [address] [place] [address] 67855 Assigned Nephrology Provider 04/25/22 Chapin Ruvalcaba MD [address] [place] [address] 948905 Assigned Gastroenterology Provider 06/13/22 06/19/22 Romi Fairbanks MD [address] [phone] Assigned Gastroenterology Provider 06/20/22 08/14/22 Danya Barraza [facility] [address] [place] [address] 956655 Assigned [place] Pharmacist 12/05/22 Deuce Majano PA-C [address] [place] [address] 887245 Assigned Gastroenterology Provider 01/23/23 02/05/23 Chapin Ruvalcaba MD [address] [facility] [address] [place], [place] 841885 Assigned Gastroenterology Provider 02/06/23 documented as of this encounter
--- OUTSIDE RECORDS SUMMARY | 2023-03-14 02:44 | XMS_ITS | Encounter Summary ---
Author Name Unknown Organization [facility] Address [address] [place] [address] Care Team Providers Care Drawer Fitter Name Role Phone Makayla Brett Pascual Primary Care Provider Chapin Khan MD Unavailable [phone] Brionna Covarrubias RN Unavailable [phone] Danya Pena Unavailable Unavailable Driss oMrales MD Unavailable +[phone] Danya Barraza [facility] Unavailable Romi Fairbanks MD Unavailable [phone] Maximino Arredondo MD Primary Care Provider Luke Carvalho MD Unavailable [phone] Carmen Chapman APRN [facility] Unavailable + Sarah Heard RN Unavailable Unavailable Danya Barraza [facility] Unavailable [phone] Danya Barraza [facility] Unavailable [phone] Danya Pena Unavailable Unavailable Jeanette French RN Unavailable +[phone] Tammy Greenberg MD Unavailable +[phone] Genaro Palacios MD Unavailable [phone] Claude Rucker MD Unavailable [phone] Delroy Gore APRN SERVICE ORDER DISPATCHER CHIEF Unavailable [phone] Chapin Ruvalcaba MD Unavailable + [phone] Romi Fairbanks MD Unavailable [phone] NakulDanya vides [facility] Unavailable [phone] Deuce Majano PAAnhC Unavailable +[phone] Chapin Ruvalcaba MD Unavailable + [phone] Encounter Details Date Type Department Care Team (Late st Contact Info) Description 01/15/[address] [facility] Gastroenterology Clinic [address] [place] [address] Romi Fairbanks MD [address] [address] Social History Tobacco Use Types [...] st Contact Info) Description 04/01/2023 1:15 PM FUND RAISER Office Visit [address] [phone] Yolanda Wilkerson PA-C [address] [place] [address] 07/13/2023 8:00 AM CDT Virtual Visit [facility] Gastroenterology Clinic [address] 4[address] [place] [address] Deuce Majano PA-C [address] [place] [address] documented as of this encounter Visit Diagnoses Not on filedocumented in this encounter Additional Health Concerns Infection Onset Date Last Indicated Resolved Time COVID-19 01/02/2022 01/02/2022 01/16/2022 7:58 AM FUND RAISER Recovered COVID 01/16/2022 01/16/2022 04/01/2022 1 1:39 PM FUND RAISER Rule Out C-difficile 03/10/2023 03/10/2023 024 5:57 PM FUND RAISER documented as of this encounter Care Teams Drawer Fitter Relationship Specialty Start Date End Date Brett Kan [address] [place] [address] PCP - General Family Medicine 03/20/20 04/01/21 Maximino Arredondo MD [address] [place], [place] [address] [place] [address] PCP - General Family Medicine 04/02/21 Chapin Khan MD [address] [place] [address] 525745 Urology 05/10/20 Brionna Covarrubias, RN Registered Nurse Oncology 05/10/20 09/01/22 Danya Pena Assigned Heart and Vascular Provider 08/11/20 03/29/21 Driss Morales MD [address] [place] [address] 24221 Assigned Surgical Provider 11/17/20 04/10/22 Danya Barraza [facility] [address] [place] [address] 12170 Pharmacist Pharmacist Lead Fabricator 12/25/20 Romi Fairbanks MD [address] 353335 Assigned Gastroenterology Provider 01/05/21 06/12/22 Luke Carvalho MD [address] [place] [address] 17584 Assigned Heart and Vascular Provider 03/30/21 12/12/21 Carmen Chapman APRN CNP [address] [place] [address] Assigned PCP 04/27/21 03/27/22 Sarah Heard, RN Specialty Journey Lineman Gastroenterology 05/14/21 12/29/21 Danya Barraza [facility] [address] [place] [address] 51854 Assigned MTM Pharmacist 07/12/21 Danya Barraza, [facility] [address] [place] [address] 16937 Assigned MTM Pharmacist 11/12/21 Danya Pena Assigned Heart and Vascular Provider 12/13/21 01/02/22 Jeanette French, RN [address] [place] [address] 180125 Specialty Journey Lineman Gastroenterology 12/30/21 Tammy Greenberg MD [address] [place] [address] 508 [place], [place] 171605 Cardiovascular Disease 02/24/22 Genaro Palacios MD [address] [facility] [address] [place], [place] 615445 Assigned Heart and Vascular Provider 03/28/22 Claude Rucker MD [address] [place] [address] 295785 Assigned Surgical Provider 04/11/22 Delroy Gore APRN SERVICE ORDER DISPATCHER CHIEF [address] [place] [address] 628525 Assigned Nephrology Provider 04/25/22 Cahpin Ruvalcaba MD [address] [place] [address] [address] [place], [place] 709765 Assigned Gastroenterology Provider 06/13/22 06/19/22 Romi Fairbanks MD [address] [place] 244569 [place], [place] 518045 Assigned Gastroenterology Provider 06/20/22 08/14/22 Danya Barraza, [facility] [address] [place] [address] Assigned MTM Pharmacist 12/05/22 Deuce Majano PA-C [address] [place], [place] 692795 Assigned Gastroenterology Provider 01/23/23 02/05/23 Chapin Ruvalcaba MD 6 [facility] [address] [place] [address] Assigned Gastroenterology Provider 02/06/23 documented as of this encounter
--- OUTSIDE RECORDS SUMMARY | 2023-03-14 02:44 | XMS_ITS | Encounter Summary ---
Author Name Unknown Organization [facility] Address [address] [place] [address] 01261 Care Team Providers Care Ice Cream Man Name Role Phone Makayla Brett Pascual Primary Care Provider Chapin Khan MD Unavailable +[phone] Brionna Covarrubias RN Unavailable [phone] Danya Pena Unavailable Unavailable Driss Morales MD Unavailable +[phone] Danya Barraza [facility] Unavailable [phone] Romi Fairbakns MD Unavailable [phone] Maximino Arredondo MD Primary Care Provider Luke Carvalho MD Unavailable [phone] Carmen Chapman APRN [facility] Unavailable + Sarah Heard RN Unavailable Unavailable Danya Barraza [facility] Unavailable Danya Barraza [facility] Unavailable [phone] Danya Pena Unavailable Unavailable Jeanette French RN Unavailable +[phone] Tammy Greenberg MD Unavailable +[phone] Genaro Palacios MD Unavailable [phone] Claude Rucker MD Unavailable [phone] Delroy Gore APRN ACID PAINTER Unavailable Encounter Details Date Type Department Care Team (Late st Contact Info) Description 02/26/2021 Medical Correspondence [facility] [address] [place] [address] Outside, Provider Social History Tobacco [...] Coronavirus/COVID-19? No / Unsure 04/15/2022 10:35 PM CLINICAL NURSING DIRECTOR documented as of this encounter Plan of Treatment Upcoming Encounters Date Type Department Care Team (Late st Contact Info) Description 04/01/2023 1:15 PM CLINICAL NURSING DIRECTOR Office Visit [address] [address] Yolanda Wilkerson PAAnhC [address] [place] [address] 561045 07/13/2023 8:00 AM CDT Virtual Visit [facility] Gastroenterology Clinic [address] [place] [address] Deuce Majano PA-C [address] [place], [place] 308915 documented as of this encounter Visit Diagnoses Not on filedocumented in this encounter Additional Health Concerns Infection Onset Date Last Indicated Resolved Time COVID-19 01/02/2022 01/02/2022 01/16/2022 7:58 AM CLINICAL NURSING DIRECTOR Recovered COVID 01/16/2022 01/16/2022 04/01/2022 1 1:39 PM CLINICAL NURSING DIRECTOR documented as of this encounter Care Teams Ice Cream Man Relationship Specialty Start Date End Date Brett Kan [address] [facility] [place] [address] PCP - General Family Medicine 03/20/20 04/01/21 Maximino Arredondo MD [address] [place] [phone] PCP - General Family Medicine 04/02/21 Chapin Khan MD [address] [place] [address] 199505 Urology 05/10/20 Brionna Covarrubias, FATOUMATA Registered Nurse Oncology 05/10/20 09/01/22 Danya Pena Assigned Heart and Vascular Provider 08/11/20 03/29/21 Driss Morales MD [address] [place] [address] [phone] Assigned Surgical Provider 11/17/20 04/10/22 Danya Barraza, [facility] [address] [place] [address] [phone] Pharmacist Pharmacist Front Counter Attendant 12/25/20 Romi Fairbanks MD [address] 120145 Assigned Gastroenterology Provider 01/05/21 06/12/22 Luke Carvalho MD [address] [place] [address] 181765 Assigned Heart and Vascular Provider 03/30/21 12/12/21 Carmen Chapman APRN CNP [address] [place] [address] [id number] Assigned PCP 04/27/21 03/27/22 Sarah Heard RN Specialty Bend Up Gastroenterology 05/14/21 12/29/21 [facility] [address] [place] [address] Assigned MTM Pharmacist 07/12/21 [facility] [address] [place] [address] 31615 Assigned MTM Pharmacist 11/12/21 Danya Pena Assigned Heart and Vascular Provider 12/13/21 01/02/22 Jeanette French, FATOUMATA [address] [place] [address] 346045 Specialty Bend Up Gastroenterology 12/30/21 Tammy Greenberg MD [address] [place] [address] 508 [place], [place] 307905 Cardiovascular Disease 02/24/22 Genaro Palacios MD [address] [facility] [address] [place] [address] Assigned Heart and Vascular Provider 03/28/22 Claude Rucker MD [address] [place] [address] Assigned Surgical Provider 04/11/22 Delroy Gore APRN [facility] [address] [place] [address] Assigned Nephrology Provider 04/25/22 documented as of this encounter
--- OUTSIDE RECORDS SUMMARY | 2023-03-14 02:44 | XMS_ITS | Encounter Summary ---
Author Name Unknown Organization [place] Address [address] [place] [address] Care Team Providers Care Clinical Services Consultant Name Role Phone Makayla Brett Pascual Primary Care Provider + [phone] Chapin Khan MD Unavailable +[phone] Brionna Covarrubias RN Unavailable +[phone] Danya Pena Unavailable [facility]available [facility] Unavailable +[phone] Driss Morales MD Unavailable +[phone] Danya Barraza [facility] Unavailable +1- Chapin Ruvalcaba MD Unavailable +[phone] Romi Fairbanks MD Unavailable +-[phone] Maximino Arredondo MD Primary Care Provider +[phone] Luke Carvalho MD Unavailable +[phone] Carmen Chapman HEAVY TRUCK DRIVER WIRE FRAME DIPPER Unavailable + Sarah Heard RN Unavailable Unavailable Danya Barraza [facility] Unavailable +1- Danya Barraza [facility] Unavailable +1- Danya Pena Unavailable Unavailable Jeanette French RN Unavailable +[phone] Tammy Greenberg MD Unavailable Genaro Palacios MD Unavailable +[phone] Claude Rucker MD Unavailable +[phone] Delroy Gore APRN [facility] Unavailable +[phone] Chapin Ruvalcaba MD Unavailable + [phone] Romi Fairbanks MD Unavailable +[phone] Danya Barraza [facility] Unavailable +[phone] Deuce MajanoC Unavailable +[phone] Chapin Ruvalcaba MD Unavailable + [phone] Encounter Details Date Type Department Care Team (Late Contact Info) Description 11/27/2020 [facility] Cancer [address] [address] Caitlin De Leon Social History [...] have Coronavirus / COVID-19? No / Unsure 11/04/2020 11:40 AM CDT documented as of this encounter Plan of Treatment Upcoming Encounters Date Type Department Care Team (Late st Contact Info) Description 04/01/2023 1:15 PM QUALITY IMPROVEMENT ENGINEER Office Visit [address] [address] Yolanda Wilkerson PA-C [address] [place] [address] 07/13/2023 8:00 AM CDT Virtual Visit [facility] [address] 4th [place] [phone] Deuce Majano PA-C [address] [place] [address] documented as of this encounter Visit Diagnoses Not on filedocumented in this encounter Additional Health Concerns Infection Onset Date Last Indicated Resolved Time COVID-19 01/02/2022 01/02/2022 01/16/2022 7:58 AM QUALITY IMPROVEMENT ENGINEER Recovered COVID 01/16/2022 01/16/2022 04/01/2022 1 1:39 PM QUALITY IMPROVEMENT ENGINEER Rule Out C-difficile 03/10/2023 03/10/2023 024 5:57 PM QUALITY IMPROVEMENT ENGINEER documented as of this encounter Care Teams Clinical Services Consultant Relationship Specialty Start Date End Date Brett Kan [address] [place] [address] PCP - General Family Medicine 03/20/20 04/01/21 Maximino Arredondo MD [address] [facility] [place] [phone] PCP - General Family Medicine 04/02/21 Chapin Khan MD [address] [place] [address] [phone] Urology 05/10/20 Brionna Covarrubias, RN Registered Nurse Oncology 05/10/20 09/01/22 Danya Pena Assigned Heart and Vascular Provider 08/11/20 03/29/21 Romi Fairbanks MD [address] 699045 Assigned Gastroenterology Provider 08/18/20 12/21/20 Driss Morales MD [address] [place] [place] [address] 236855 Assigned Surgical Provider 11/17/20 04/10/22 [facility] [address] [place] [address] [phone] Pharmacist Pharmacist Poker Supervisor 12/25/20 Chapin Ruvalcaba MD [address] [place], [place] [address]B [address] [place], [place] 878035 Assigned Gastroenterology Provider 12/22/20 01/04/21 Romi Fairbanks MD [address] 192035 Assigned Gastroenterology Provider 01/05/21 06/12/22 Luke Carvalho MD [address] [place] [address] 376335 Assigned Heart and Vascular Provider 03/30/21 12/12/21 Carmen Chapman APRN WIRE FRAME DIPPER [address] [place] [address] Assigned PCP 04/27/21 03/27/22 Sarah Heard, FATOUMATA Specialty Ship Officer Gastroenterology 05/14/21 12/29/21 [facility] [address] [place] [address] 680[address] Assigned MTM Pharmacist 07/12/21 [facility] [address] [place] [address] 617[address] Assigned MTM Pharmacist 11/12/21 Danya Pena Assigned Heart and Vascular Provider 12/13/21 01/02/22 Jeanette French RN [address] [place] [address] 896355 Specialty Ship Officer Gastroenterology 12/30/21 Tammy Greenberg MD [address] [place] [address] [address] [place], [place] 163275 Cardiovascular Disease 02/24/22 Genaro Palacios MD [address] [place] [address] [address] [place], [place] 679105 Assigned Heart and Vascular Provider 03/28/22 Claude Rucker MD [address] [place] [address] 359075 Assigned Surgical Provider 04/11/22 Delroy Gore APRN [facility] [address] [place] [address] Assigned Nephrology Provider 04/25/22 Chapin Ruvalcaba MD 6 [facility] [address] [address] [place] [address] Assigned Gastroenterology Provider 06/13/22 06/19/22 Romi Fairbanks MD [facility] [address] [place], [place] 198005 Assigned Gastroenterology Provider 06/20/22 08/14/22 [facility] [address] [place], [place] 530865 Assigned [place] Pharmacist 12/05/22 Deuce Majano PA-C [address] [place] [address] [phone] Assigned Gastroenterology Provider 01/23/23 02/05/23 Chapin Ruvalcaba MD 6 [facility] [address] [address] [place] [address] 136635 Assigned Gastroenterology Provider 02/06/23 documented as of this encounter
--- OUTSIDE RECORDS SUMMARY | 2023-03-14 02:45 | XMS_ITS | Encounter Summary ---
Author Name Unknown Organization [place] Address [address] [place] [address] Care Team Providers Care Crew Attendant Name Role Phone Makayla Brett Pascual Primary Care Provider + [phone] Chapin Khan MD Unavailable +- [phone] Brionna Covarrubias RN Unavailable +[phone] Chapin Khan MD Unavailable +- [phone] Danya Pena Unavailable Unavailable Romi Fairbanks MD Unavailable +[phone] Driss Morales MD Unavailable +[phone] Danya Barraza [facility] Unavailable +1- Chapin Ruvalcaba MD Unavailable +[phone] Romi Fairbanks MD Unavailable +[phone] Maximino Arredondo MD Primary Care Provider +[phone] Luke Carvalho MD Unavailable [phone] Carmen Chapman PIECE HAND COMMUNICATIONS PROJECT MANAGER Unavailable + Sarah Heard RN Unavailable Unavailable Danya Barraza [facility] Unavailable +[phone] Danya Barraza [facility] Unavailable +[phone] Danya Pena Unavailable Unavailable Jeanette French RN Unavailable +[phone] Tammy Greenberg MD Unavailable +[phone] Genaro Palacios MD Unavailable +[phone] Claude Rucker MD Unavailable [phone] Reason for Visit * Reason Onset Date Comments Pt. Information/instruction 08/27/2020 Encounter Details Date Type Department Care Team ([facility] Contact Info) Description 08/27/2020 Telephone [facility] Endoscopy [address] [place] [address] Michelle Prescott, FATOUMATA Pt. Information/instruction Social History Tobacco Use Types Packs/Day Years [...] Coronavirus/COVID-19? No / Unsure 04/15/2022 10:35 PM KNITTING MACHINE MECHANIC documented as of this encounter Miscellaneous Notes * Telephone Encounter - Michelle Zapata RN - 08/27/2020 10:18 AM CDT Pre assessment questions completed for upcoming colonoscopy/EUS procedure scheduled on 09/03/20 COVID test scheduled 08/30/20 Pre-op scheduled 08/05/20 cardiology Danya Pena - per patient outreach encounter dated 08/16/20 from Roslyn Foley - Preop Plan: Recent office visit with cardiology on 08/05 with full assessment Golytely prep script sent to [facility] pharmacy. Prep instructions sent via [place] [employer]. Patient with ESRD Reviewed Golytely prep instructions with patient. Procedural arrival time and facility location reviewed. Designated pile driver operator policy reviewed. Patient verbalized understanding and had no questions or concerns at this time. Michelle Zapata RN documented in this encounter Plan of Treatment Upcoming Encounters Date Type Department Care Team (Late st Contact Info) Description 04/01/2023 1:15 PM KNITTING MACHINE MECHANIC Office Visit [address] [phone] Yolanda Wilkerson PA-C [address] [place] [address] 07/13/2023 8:00 AM CDT Virtual Visit [facility] Clinic [address] 4[address] [place] [phone] Deuce Majano PA-C [address] [place] [address] 958365 documented as of this encounter Visit Diagnoses Diagnosis Crohn's disease of both small and large intestine with other complication (H)- Primary documented in this encounter Additional Health Concerns Infection Onset Date Last Indicated Resolved Time COVID-19 01/02/2022 01/02/2022 01/16/2022 7:58 AM KNITTING MACHINE MECHANIC Recovered COVID 01/16/2022 01/16/2022 04/01/2022 1 1:39 PM KNITTING MACHINE MECHANIC documented as of this encounter Care Teams Crew Attendant Relationship Specialty Start Date End Date Brett Kan [address] [place] [address] PCP - General Family Medicine 03/20/20 04/01/21 Maximino Arredondo MD [address] [place] [facility] [address] PCP - General Family Medicine 04/02/21 Chapin Khan MD [address] [place] [address] Urology 05/10/20 Brionna Covarrubias, RN Registered Nurse Oncology 05/10/20 09/01/22 Chapin Khan MD [address] [place] [address] 603815 Assigned Surgical Provider 06/16/20 11/16/20 Danya Pena Assigned Heart and Vascular Provider 08/11/20 03/29/21 Romi Fairbanks MD [address] [phone] Assigned Gastroenterology Provider 08/18/20 12/21/20 Driss Morales MD [address] [place] [address] 055635 Assigned Surgical Provider 11/17/20 04/10/22 [facility] [address] [place] [address] 29681 Pharmacist Pharmacist Membership Administrator 12/25/20 Chapin Ruvalcaba MD 6 [facility] [address] [place] [address] Assigned Gastroenterology Provider 12/22/20 01/04/21 Romi Fairbanks MD [address] [address] Assigned Gastroenterology Provider 01/05/21 06/12/22 Luke Carvalho MD [address] [place] [address] 22740 Assigned Heart and Vascular Provider 03/30/21 12/12/21 Carmen Chapman APRN CNP [address] [place] [address] Assigned PCP 04/27/21 03/27/22 Sarah Heard, FATOUMATA Specialty System Software Programmer Gastroenterology 05/14/21 12/29/21 Danya Barraza [facility] [address] [place] [address] 88396 Assigned MTM Pharmacist 07/12/21 Danya Barraza [facility] [address] [place] [address] 45[address] Assigned MTM Pharmacist 11/12/21 Danya Pena Assigned Heart and Vascular Provider 12/13/21 01/02/22 Jeanette French, RN [address] [place] [address] Specialty System Software Programmer Gastroenterology 12/30/21 Tammy Greenberg MD [address] [place] [address] [address] [place] [address] Cardiovascular Disease 02/24/22 Genaro Palacios MD [address] [place] [address] Assigned Heart and Vascular Provider 03/28/22 Claude Rucker MD [address] [place] [address] Assigned Surgical Provider 04/11/22 documented as of this encounter
--- OUTSIDE RECORDS SUMMARY | 2023-03-14 02:45 | XMS_ITS | Encounter Summary ---
Author Name Unknown Organization [facility] Address [address] [place] [address] Care Team Providers Care Combat Control Manager Name Role Phone Makayla Brett Pascual Primary Care Provider + [phone] Chapin Khan MD Unavailable + [phone] Brionna Covarrubias RN Unavailable +[phone] Chapin Khan MD Unavailable +- [phone] Luke Carvalho MD Unavailable +-[phone] MD Unavailable +[phone] Danya Pena Unavailable Unavailable Romi Fairbanks MD Unavailable +[phone] Driss Morales MD Unavailable +[phone] Danya Barraza [facility] Unavailable +[phone] Chapin Ruvalcaba MD Unavailable +[phone] Romi Fairbanks MD Unavailable +[phone] Maximino Arredondo MD Primary Care Provider +[phone] Luke Carvalho MD Unavailable +[phone] Carmen Chapman APRN [facility] Unavailable + Sarah Heard RN Unavailable Unavailable Danya Barraza [facility] Unavailable +[phone] Danya Barraza [facility] Unavailable +1- Danya Pena Unavailable Unavailable Jeanette French RN Unavailable +[phone] Tammy Greenberg MD Unavailable +[phone] Genaro Palacios MD Unavailable +[phone] Claude Rucker MD Unavailable +[phone] Delroy Gore APRN FOREST FIRE SPECIALIST SUPERVISOR Unavailable +1- Chapin Ruvalcaba MD Unavailable + [phone] Romi Fairbanks MD Unavailable +[phone] Danya Barraza [facility] Unavailable +1- Deuce aMjano PA-C Unavailable + Chapin Ruvalcaba MD Unavailable + [phone] Encounter Details Date Type Department Care Team (Late st Contact Info) Description 07/01/2020 [facility] Heart Care [address] [place] [phone] Anita Bell Social History Tobacco Use Types Packs/Day Years [...] have Coronavirus / COVID-19? No / Unsure 06/07/2020 6:31 AM CDT documented as of this encounter Plan of Treatment Upcoming Encounters Date Type Department Care Team (Late st Contact Info) Description 04/01/2023 1:15 PM HOUSE ADMIN Office Visit [address] [phone] Yolanda Wilkerson, RADHA [address] [place] [address] 07/13/2023 8:00 AM CDT Virtual Visit [facility] Gastroenterology Clinic [address] 4th [place] [phone] Deuce Majano PA-C [address] [place] [address] 755505 documented as of this encounter Visit Diagnoses Not on filedocumented in this encounter Additional Health Concerns Infection Onset Date Last Indicated Resolved Time COVID-19 01/02/2022 01/02/2022 01/16/2022 7:58 AM HOUSE ADMIN Recovered COVID 01/16/2022 01/16/2022 04/01/2022 1 1:39 PM HOUSE ADMIN Rule Out C-difficile 03/10/2023 03/10/2023 024 5:57 PM HOUSE ADMIN documented as of this encounter Care Teams Combat Control Manager Relationship Specialty Start Date End Date Brett Kan [address] [place] [address] PCP - General Family Medicine 03/20/20 04/01/21 Maximino Arredondo MD [address] [place] [address] PCP - General Family Medicine 04/02/21 Chapin Khan MD [address] [place] [address] Urology 05/10/20 Brionna Covarrubias, RN Registered Nurse Oncology 05/10/20 09/01/22 Chapin Khan MD [address] [place] [address] Assigned Surgical Provider 06/16/20 11/16/20 Luke Carvalho MD [address] [place] [address] Assigned Heart and Vascular Provider 06/16/20 08/10/[address] MD [address] [place] [address] Assigned PCP 06/11/20 07/20/20 Danya Pena Assigned Heart and Vascular Provider 08/11/20 03/29/21 Romi Fairbanks MD [address] [address] Assigned Gastroenterology Provider 08/18/20 12/21/20 Driss Morales MD [address] [place] [address] Assigned Surgical Provider 11/17/20 04/10/22 Danya Barraza, [facility] [address] [place] [address] Pharmacist Pharmacist Die Designer 12/25/20 Chapin Ruvalcaba MD 6 [facility] [address] [place] [address] Assigned Gastroenterology Provider 12/22/20 01/04/21 Romi Fairbanks MD [address] [address] Assigned Gastroenterology Provider 01/05/21 06/12/22 Luke Carvalho MD [address] [place] [address] 150235 Assigned Heart and Vascular Provider 03/30/21 12/12/21 Carmen Chapman APRN FOREST FIRE SPECIALIST SUPERVISOR [address] [place] [address] Assigned PCP 04/27/21 03/27/22 Sarah Heard, FATOUMATA Specialty Poultry Dressing Worker Gastroenterology 05/14/21 12/29/21 Danya Barraza [facility] [address] [place] [address] Assigned MTM Pharmacist 07/12/21 Danya Barraza [facility] [address] [place] [address] Assigned MTM Pharmacist 11/12/21 Danya Pena Assigned Heart and Vascular Provider 12/13/21 01/02/22 Jeanette French, FATOUMATA [address] [place] [address] Specialty Poultry Dressing Worker Gastroenterology 12/30/21 Tammy Greenberg MD 420 [facility] [address] [place] [address] Cardiovascular Disease 02/24/22 Genaro Palacios MD [address] [facility] [address] [place] [address] Assigned Heart and Vascular Provider 03/28/22 Claude Rucker MD [address] [place] [address] Assigned Surgical Provider 04/11/22 Delroy Gore APRN [facility] [address] [place] [address] 278645 Assigned Nephrology Provider 04/25/22 Chapin Ruvalcaba MD 6 [facility] [address] [place] [address] Assigned Gastroenterology Provider 06/13/22 06/19/22 Romi Fairbanks MD [facility] [address] [place], [place] 281455 Assigned Gastroenterology Provider 06/20/22 08/14/22 Danya Barraza, [facility] [address] [place] [address] 103235 Assigned MTM Pharmacist 12/05/22 Deuce Majano PA-C [address] [place] [address] 286985 Assigned Gastroenterology Provider 01/23/23 02/05/23 Chapin Ruvalcaba MD 6 [facility] [address] [address] [place] [address] Assigned Gastroenterology Provider 02/06/23 documented as of this encounter
--- OUTSIDE RECORDS SUMMARY | 2023-03-14 02:45 | XMS_ITS ---
Author Name Unknown Organization [place] Address [address] [place] [address]. [place] [address] Care Team Providers Care Coal Sample Tester Name Role Phone Chapin Khan MD Unavailable +[phone] Danya Barraza [facility] Unavailable +[phone] Maximino Arredondo MD Primary Care Provider +[phone] Jeanette French RN Unavailable +[phone] Tammy Greenberg MD Unavailable +[phone] Genaro Palacios MD Unavailable +[phone] Claude Rucker MD Unavailable +[phone] Delroy Gore APRN ASSISTANT ACTIVITIES DIRECTOR Unavailable +[phone] Danya Barraza [facility] Unavailable +[phone] Chapin Ruvalcaba MD Unavailable +[phone] Transplant Episode Kidney Candidate [facility] ([place], [place]) - [facility] Evaluation began on 05/09/2020 Marked as Approved for Live Donor Only on 11/04/2022 Kidney CoordinatorRebeca Burns RN Phone: N/A Fax: N/A Email: N/A Scores Score Value Updated Exceptions/Reas ons CPRA 23 09/23/2022 EPTS (Calc) 55 03/14/2023 [place] Organ Diagnosis Organ Primary Contributory Kidney Other, Specify - unknown etiolog y Care Team Name Role Phone Fax Email Rebeca Burns RN Kidney Coordinator N/A N/A N/A Rebeca Burns RN Lapping Machine Set Up Operator N/A N/A N/A Brett [place] PCP [phone] N/A Provider Not In System Referring Physician N/A N/A N/A Events Pre-Transplant Referred: 03/20/2020 Evaluation began: 05/09/2020 Committee: 05/15/2020 Dialysis History Dialysis History Start End Type Comments Center 12/08/2019 In-center Hemodialysis [facility] Dialysis [facility] Information Center Phone Fax Address [facility] ([facility] [phone] [address] [facility] [place] [address]
--- OUTSIDE RECORDS SUMMARY | 2023-03-14 02:45 | XMS_ITS | Encounter Summary ---
Author Name Unknown Organization [facility] Address [address] [place] [address] Care Team Providers Care Garbage Collection Supervisor Name Role Phone Makayla Brett Pascual Primary Care Provider + [phone] Chapin Khan MD Unavailable +[phone] Brionna Covarrubias RN Unavailable +[phone] Gwendolyn Lennon MD Unavailable +[phone] Chapin Khan MD Unavailable +[phone] Luke Carvalho MD Unavailable +[phone] MD Unavailable +[phone] Danya Pena Unavailable Unavailable [facility] Unavailable +[phone] Driss Morales MD Unavailable +[phone] Danya Barraza [facility] Unavailable +[phone] Chapin Ruvalcaba MD Unavailable +[phone] Romi Fairbanks MD Unavailable +[phone] Maximino Arredondo MD Primary Care Provider +[phone] Luke Carvalho MD Unavailable +[phone] Carmen Chapman APRN LINE CREWMAN Unavailable + Sarah Heard RN Unavailable Unavailable Danya Barraza [facility] Unavailable +[phone] Danya Barraza John [facility] Unavailable +1- Danya Pena Unavailable Unavailable Jeanette French RN Unavailable +[phone] Tammy Greenberg MD Unavailable +[phone] Genaro Palacios MD Unavailable +[phone] Claude Rucker MD Unavailable +[phone] Delroy Goer APRN [facility] Unavailable +1- Chapin Ruvalcaba MD Unavailable + [phone] Romi Fairbanks MD Unavailable +[phone] Alexandriaazra Danya Lopez [facility] Unavailable +1- Deuce Majano PA-C Unavailable + Chapin Ruvalcaba MD Unavailable + [phone] Encounter Details Date Type Department Care Team (Late st Contact Info) Description 05/01/2020 MyC Medical Advice [facility] Transplant Clinic [address] [place] [phone] Anita Landers Social History Tobacco Use Types Packs/Day Years [...] drinks on one occasion? Not asked 03/20/2020 Sex and Gender Information Value Date Recorded Sex Assigned at Male 05/02/2020 10:54 AM CDT Gender Identity Male 05/02/2020 10:54 AM CDT Sexual Orientation Straight 05/02/2020 10 :54 AM CDT documented as of this encounter Plan of Treatment Upcoming Encounters Date Type Department Care Team (Late st Contact Info) Description 04/01/2023 1:15 PM PATTERN MECHANIC Office Visit [facility] [address] [place] [phone] Yolanda Wilkerson PA-C [address] [place] [address] 860705 07/13/2023 8:00 AM CDT Virtual Visit [facility] Gastroenterology Clinic [address] 4th [place] [phone] Deuce Majano PA-C [address] [place] [address] 269265 documented as of this encounter Visit Diagnoses Not on filedocumented in this encounter Additional Health Concerns Infection Onset Date Last Indicated Resolved Time COVID-19 01/02/2022 01/02/2022 01/16/2022 7:58 AM PATTERN MECHANIC Recovered COVID 01/16/2022 01/16/2022 04/01/2022 1 1:39 PM PATTERN MECHANIC Rule Out C-difficile 03/10/2023 03/10/2023 024 5:57 PM PATTERN MECHANIC documented as of this encounter Care Teams Garbage Collection Supervisor Relationship Specialty Start Date End Date Makayla Pascual Brett Escamilla [address] [place] [address] PCP - General Family Medicine 03/20/20 04/01/21 Maximino Arredondo MD [address] [place] [phone] PCP - General Family Medicine 04/02/21 Chapin Khan MD [address] [place] [address] 70422 Urology 05/10/20 Brionna Covarrubias, RN Registered Nurse Oncology 05/10/20 09/01/22 Gwendolyn Lennon MD [address] [address] Assigned Surgical Provider 05/19/20 06/15/20 Chapin Khan MD [address] [place] [address] 68331 Assigned Surgical Provider 06/16/20 11/16/20 Luke Carvalho MD [address] [place] [address] 89[address] Assigned Heart and Vascular Provider 06/16/20 08/10/[address] MD [address] [place] [phone] Assigned PCP 06/11/20 07/20/20 Danya Pena Assigned Heart and Vascular Provider 08/11/20 03/29/21 Romi Fairbanks MD [address] [address] Assigned Gastroenterology Provider 08/18/20 12/21/20 Driss Morales MD [address] [place] [address] [phone] Assigned Surgical Provider 11/17/20 04/10/22 Danya Barraza, [facility] [address] [place] [address] Pharmacist Pharmacist Gas Systems Worker 12/25/20 Chapin Ruvalcaba MD [address] [address] Assigned Gastroenterology Provider 12/22/20 01/04/21 Romi Fairbanks MD [address] [address] Assigned Gastroenterology Provider 01/05/21 06/12/22 Luke Carvalho MD [address] [place] [address] [phone] Assigned Heart and Vascular Provider 03/30/21 12/12/21 Carmen Chapman APRN LINE CREWMAN [address] [place] [address] Assigned PCP 04/27/21 03/27/22 Sarah Heard RN Specialty Labor Law Professor Gastroenterology 05/14/21 12/29/21 [facility] [address] [place] [address] 11163 Assigned MTM Pharmacist 07/12/21 [facility] [address] [place] [address] 85[address] Assigned MTM Pharmacist 11/12/21 Danya Pena Assigned Heart and Vascular Provider 12/13/21 01/02/22 Jeanette French RN [address] [place] [address] 323405 Specialty Labor Law Professor Gastroenterology 12/30/21 Tammy Greenberg MD 420 [facility] [address] [place] [address] Cardiovascular Disease 02/24/22 Genaro Palacios MD [address] [facility] [address] [place], [place] 740535 Assigned Heart and Vascular Provider 03/28/22 Claude Rucker MD [address] [place] [address] [phone] Assigned Surgical Provider 04/11/22 Delroy Gore APRN LINE CREWMAN [address] [place] [address] Assigned Nephrology Provider 04/25/22 Chapin Ruvalcaba MD 6 [facility] [address] [place], [place] 293325 Assigned Gastroenterology Provider 06/13/22 06/19/22 Romi Fairbanks MD [facility] [address] [place] [address] Assigned Gastroenterology Provider 06/20/22 08/14/22 Danya Barraza, [facility] [address] [place] [address] Assigned MTM Pharmacist 12/05/22 Deuce Majano PA-C [address] [place] [address] Assigned Gastroenterology Provider 01/23/23 02/05/23 Chapin Ruvalcaba MD [address] [place] [address] Assigned Gastroenterology Provider 02/06/23 documented as of this encounter
--- OUTSIDE RECORDS SUMMARY | 2023-03-14 02:45 | XMS_ITS | Encounter Summary ---
Author Name Unknown Organization [facility] Address [address] [place] [address] Care Team Providers Care Cord Splicer Name Role Phone Makayla Brett Pascual Primary Care Provider + [phone] Chapin Khan MD Unavailable +[phone] Brionna Covarrubias RN Unavailable +[phone] Gwendolyn Lennon MD Unavailable +[phone] Chapin Khan MD Unavailable +[phone] Luke Carvalho MD Unavailable +[phone] MD Unavailable +[phone] Danya Pena Unavailable Unavailable [facility] MD Unavailable +[phone] Driss Morales MD Unavailable +[phone] Danya Barraza [facility] Unavailable +[phone] Chapin Ruvalcaba MD Unavailable +[phone] Romi Fairbanks MD Unavailable +[phone] Maximino Arredondo MD Primary Care Provider +[phone] Luke Carvalho MD Unavailable +[phone] Carmen Chapman APRN RN GYN Unavailable + Sarah Heard RN Unavailable Unavailable Danya Barraza [facility] Unavailable +1- Danya Barraza John [facility] Unavailable +1- Danya Pena Unavailable Unavailable Jeanette French RN Unavailable +[phone] Tammy Greenberg MD Unavailable +[phone] Genaro Palacios MD Unavailable +[phone] Claude Rucker MD Unavailable +[phone] Delroy Gore APRN [facility] Unavailable +1- Chapin Ruvalcaba MD Unavailable + [phone] Romi Fairbanks MD Unavailable + Madi Danya Lopez [facility] Unavailable +1- Deuce Majano PA-C Unavailable + Chapin Ruvalcaba MD Unavailable + [phone] Encounter Details Date Type Department Care Team (Late st Contact Info) Description 06/10/2020 MyC Medical Advice [facility] Heart [address] [phone] Kala Gomez RN Social History Tobacco Use Types Packs/Day [...] st Contact Info) Description 04/01/2023 1:15 PM FRONT END WHEEL LOADER OPERATOR Office Visit [address] [phone] Yolanda Wilkerson PA-C [address] [place] [address] 076915 07/13/2023 8:00 AM CDT Virtual Visit [facility] Gastroenterology Clinic [address] 4th [place] [phone] Deuce Majano PA-C [address] [place] [address] 31757 documented as of this encounter Visit Diagnoses Not on filedocumented in this encounter Additional Health Concerns Infection Onset Date Last Indicated Resolved Time COVID-19 01/02/2022 01/02/2022 01/16/2022 7:58 AM FRONT END WHEEL LOADER OPERATOR Recovered COVID 01/16/2022 01/16/2022 04/01/2022 1 1:39 PM FRONT END WHEEL LOADER OPERATOR Rule Out C-difficile 03/10/2023 03/10/2023 024 5:57 PM FRONT END WHEEL LOADER OPERATOR documented as of this encounter Care Teams Cord Splicer Relationship Specialty Start Date End Date Brett Kan [address] [place] [address] PCP - General Family Medicine 03/20/20 04/01/21 Maximino Arredondo MD [address] [facility] [place] [phone] PCP - General Family Medicine 04/02/21 Chapin Khan MD [address] [place] [address] 610505 Urology 05/10/20 Brionna Covarrubias, RN Registered Nurse Oncology 05/10/20 09/01/22 Gwendolyn Lennon MD [address] [place] [address] [phone] Assigned Surgical Provider 05/19/20 06/15/20 Chapin Khan MD [address] [place] [address] [phone] Assigned Surgical Provider 06/16/20 11/16/20 Luke Carvalho MD [address] [place] [address] [phone] Assigned Heart and Vascular Provider 06/16/20 08/10/[address] MD [address] [place] [phone] Assigned PCP 06/11/20 07/20/20 Danya Pena Assigned Heart and Vascular Provider 08/11/20 03/29/21 Romi Fairbanks MD [address] 784395 Assigned Gastroenterology Provider 08/18/20 12/21/20 Driss Morales MD [address] [place] [address] Assigned Surgical Provider 11/17/20 04/10/22 Danya Barraza [facility] [address] [place] [address] 20443 Pharmacist Pharmacist Seat Builder 12/25/20 Chapin Ruvalcaba MD [address] [place] [address] Assigned Gastroenterology Provider 12/22/20 01/04/21 Romi Fairbanks MD [address] [address] Assigned Gastroenterology Provider 01/05/21 06/12/22 Luke Carvalho MD [address] [place] [address] 09427 Assigned Heart and Vascular Provider 03/30/21 12/12/21 Carmen Chapman APRN [facility] [address] [place] [address] Assigned PCP 04/27/21 03/27/22 Sarah Heard, RN Specialty Grades 1 Through 5 Teacher Gastroenterology 05/14/21 12/29/21 Danya Barraza [facility] [address] [place] [address] 08051 Assigned MTM Pharmacist 07/12/21 Danya Barraza [facility] [address] [place] [address] 14874 Assigned MTM Pharmacist 11/12/21 Danya Pena Assigned Heart and Vascular Provider 12/13/21 01/02/22 Jeanette French, RN [address] [place] [address] [phone] Specialty Grades 1 Through 5 Teacher Gastroenterology 12/30/21 Tammy Greenberg MD [address] [place] [address] 508 [place], [place] 529105 Cardiovascular Disease 02/24/22 Genaro Palacios MD [address] [place] [address] [phone] Assigned Heart and Vascular Provider 03/28/22 Claude Rucker MD [address] [place] [address] [phone] Assigned Surgical Provider 04/11/22 Delroy Gore, MITERING MACHINE OPERATOR RN GYN [address] [place] [address] [phone] Assigned Nephrology Provider 04/25/22 Chapin Ruvalcaba MD [address] [place] [address] [address] [place], [place] 520185 Assigned Gastroenterology Provider 06/13/22 06/19/22 Romi Fairbanks MD [address] 819365 Assigned Gastroenterology Provider 06/20/22 08/14/22 Danya Barraza, [facility] [address] [place] [address] 04170 Assigned MTM Pharmacist 12/05/22 Deuce Majano PA-C [address] [place], [place] 709875 Assigned Gastroenterology Provider 01/23/23 02/05/23 Chapin Ruvalcaba MD 6 [facility] [address] [place] [address] Assigned Gastroenterology Provider 02/06/23 documented as of this encounter
--- OUTSIDE RECORDS SUMMARY | 2023-03-14 02:45 | XMS_ITS | Encounter Summary ---
Author Name Unknown Organization [facility] Address [address] [place] [address] Care Team Providers Care Project Manager Industrial Name Role Phone Makayla Brett Pascual Primary Care Provider + [phone] Chapin Khan MD Unavailable +[phone] Brionna Covarrubias RN Unavailable +[phone] Gwendolyn Lennon MD Unavailable +[phone] Chapin Khan MD Unavailable +[phone] Luke Carvalho MD Unavailable +[phone] MD Unavailable +[phone] Danya Pena Unavailable [facility]available [facility] Unavailable +[phone] Driss Morales MD Unavailable +[phone] Danya Barraza [facility] Unavailable +[phone] Chapin Ruvalcaba MD Unavailable +[phone] Romi Fairbanks MD Unavailable +[phone] Maximino Arredondo MD Primary Care Provider +[phone] Luke Carvalho MD Unavailable +[phone] Carmen Chapman APRN BOAT BUILDER Unavailable + Sarah Heard RN Unavailable Unavailable Danya Barraza [facility] Unavailable +[phone] Danya Barraza John [facility] Unavailable +1- Danya Pena Unavailable Unavailable Jeanette French RN Unavailable +[phone] Tammy Greenberg MD Unavailable +[phone] Genaro Palacios MD Unavailable +[phone] Claude Rucker MD Unavailable +[phone] Delroy Gore APRN [facility] Unavailable +1- Chapin Ruvalcaba MD Unavailable + [phone] Romi Fairbanks MD Unavailable +[phone] Alexandriaazra Danya Lopez [facility] Unavailable +1- Deuce Majano PA-C Unavailable + Chapin Ruvalcaba MD Unavailable + [phone] Encounter Details Date Type Department Care Team (Late st Contact Info) Description 06/04/2020 MyC Medical Advice [facility] Transplant Clinic [address] [place] [phone] Anita Landers Social History Tobacco Use [...] st Contact Info) Description 04/01/2023 1:15 PM CONFIGURATION TECHNICIAN Office Visit [address] [phone] Yolanda Wilkerson PA-C [address] [place] [address] [phone] 07/13/2023 8:00 AM CDT Virtual Visit [facility] Gastroenterology Clinic [address] 4th [place] [phone] Deuce Majano PA-C [address] [place] [address] documented as of this encounter Visit Diagnoses Not on filedocumented in this encounter Additional Health Concerns Infection Onset Date Last Indicated Resolved Time COVID-19 01/02/2022 01/02/2022 01/16/2022 7:58 AM CONFIGURATION TECHNICIAN Recovered COVID 01/16/2022 01/16/2022 04/01/2022 1 1:39 PM CONFIGURATION TECHNICIAN Rule Out C-difficile 03/10/2023 03/10/2023 024 5:57 PM CONFIGURATION TECHNICIAN documented as of this encounter Care Teams Project Manager Industrial Relationship Specialty Start Date End Date Brett Kan [address] [place] [address] PCP - General Family Medicine 03/20/20 04/01/21 Maximino Arredondo MD [address] [place] [address] PCP - General Family Medicine 04/02/21 Chapin Khan MD [address] [place] [address] Urology 05/10/20 Brionna Covarrubias, RN Registered Nurse Oncology 05/10/20 09/01/22 Gwendolyn Lennon MD [address] [place] [address] [phone] Assigned Surgical Provider 05/19/20 06/15/20 Chapin Khan MD [address] [place] [address] 83045 Assigned Surgical Provider 06/16/20 11/16/20 Luke Carvalho MD [address] [place] [address]25 Assigned Heart and Vascular Provider 06/16/20 08/10/[address] MD [address] [place] [phone] Assigned PCP 06/11/20 07/20/20 Danya Pena Assigned Heart and Vascular Provider 08/11/20 03/29/21 Romi Fairbanks MD [facility] [address] [place] [address] [phone] Assigned Gastroenterology Provider 08/18/20 12/21/20 Driss Morales MD [address] [place] [address] [phone] Assigned Surgical Provider 11/17/20 04/10/22 Danya Barraza [facility] [address] [place] [address] Pharmacist Pharmacist Erco Machine Operator 12/25/20 Chapin Ruvalcaba MD [address] [place] [address] 442205 Assigned Gastroenterology Provider 12/22/20 01/04/21 Romi Fairbanks MD [address] [address] Assigned Gastroenterology Provider 01/05/21 06/12/22 Luke Carvalho MD [address] [place] [address] 69[address] Assigned Heart and Vascular Provider 03/30/21 12/12/21 Carmen Chapman APRN [facility] [address] [place] [address] Assigned PCP 04/27/21 03/27/22 Sarah Heard RN Specialty Field Crop Farming Supervisor Gastroenterology 05/14/21 12/29/21 [facility] [address] [place] [address] 298[address] Assigned MTM Pharmacist 07/12/21 Danya Barraza [facility] [address] [place] [address] Assigned MTM Pharmacist 11/12/21 Danya Pena Assigned Heart and Vascular Provider 12/13/21 01/02/22 Jeanette French, [place] [address] [place], [place] [phone] Specialty Field Crop Farming Supervisor Gastroenterology 12/30/21 Tammy Greenberg MD [address] [place] [address] 508 [place], [place] 587805 Cardiovascular Disease 02/24/22 Genaro Palacios MD 6[address] [facility] [place] [address] 651105 Assigned Heart and Vascular Provider 03/28/22 Claude Rucker MD [address] [place] [address] [phone] Assigned Surgical Provider 04/11/22 Delroy Gore, STAFF PHYSICAL THERAPIST BOAT BUILDER [address] [place] [address] [phone] Assigned Nephrology Provider 04/25/22 Chapin Ruvalcaba MD 6 [facility] [address] [place], [place] 258055 Assigned Gastroenterology Provider 06/13/22 06/19/22 Romi Fairbanks MD [facility] [address] [place], [place] 545655 Assigned Gastroenterology Provider 06/20/22 08/14/22 Danya Barraza, [facility] [address] [place] [address]455 Assigned MTM Pharmacist 12/05/22 Deuce Majano PA-C [address] [place] [address] Assigned Gastroenterology Provider 01/23/23 02/05/23 Chapin Ruvalcaba MD 6 [facility] [address] [place] [address] Assigned Gastroenterology Provider 02/06/23 documented as of this encounter
--- OUTSIDE RECORDS SUMMARY | 2023-03-14 02:45 | XMS_ITS | Encounter Summary ---
Author Name Unknown Organization [employer] Address [address] [place] [address]39 Care Team Providers Care Dairy Farm Supervisor Name Role Phone Makayla Brett Pascual Primary Care Provider + [phone] Chapin Khan MD Unavailable +- 24 Brionna Covarrubias RN Unavailable +[phone] Chapin Khan MD Unavailable +- 24 Danya Pena Unavailable Unavailable Romi Fairbanks MD Unavailable +[phone] Driss Morales MD Unavailable +[phone] Danya Barraza [facility] Unavailable +1- Chapin Ruvalcaba MD Unavailable +[phone] Romi Fairbanks MD Unavailable +[phone] Maximino Arredondo MD Primary Care Provider Luke Carvalho MD Unavailable +[phone] Carmen Chapman HYDRATOR OPERATOR [employer] [employer] Unavailable + Sarah Heard RN Unavailable Unavailable Danya Barraza [facility] Unavailable +[phone] Danya Barraza [facility] Unavailable +[phone] Danya Pena Unavailable Unavailable Jeanette French RN Unavailable +[phone] Tammy Greenberg MD Unavailable +[phone] Genaro Palacios MD Unavailable +[phone] Claude Rucker MD Unavailable +[phone] Delroy Gore APRN [facility] Unavailable +[phone] Chapin Ruvalcaba MD Unavailable +[phone] Romi Fairbanks MD Unavailable +[phone] Danya Barraza [facility] Unavailable +[phone] Deuce Majano PA-C Unavailable +[phone] Chapin Ruvalcaba MD Unavailable + [phone] Encounter Details Date Type Department Care Team (Late st Contact Info) Description 08/27/2020 [facility] Medical Advice [facility] [address] [place] [address] [address] [place] [address] Michelle Prescott, RN Social History Tobacco Use Types Packs/Day [...] have Coronavirus / COVID-19? No / Unsure 08/30/2020 11:06 AM CDT documented as of this encounter Plan of Treatment Upcoming Encounters Date Type Department Care Team (Late st Contact Info) Description 04/01/2023 1:15 PM MACHINE TAPER Office Visit [address] [address] Yolanda Wilkerson PA-C [address] [place] [address] 062805 07/13/2023 8:00 AM CDT Virtual Visit [facility] [address] 4th [place] [phone] Deuce Majano PA-C [address] [place] [address] [phone] documented as of this encounter Visit Diagnoses Not on filedocumented in this encounter Additional Health Concerns Infection Onset Date Last Indicated Resolved Time COVID-19 01/02/2022 01/02/2022 01/16/2022 7:58 AM MACHINE TAPER Recovered COVID 01/16/2022 01/16/2022 04/01/2022 1 1:39 PM MACHINE TAPER Rule Out C-difficile 03/10/2023 03/10/2023 024 5:57 PM MACHINE TAPER documented as of this encounter Care Teams Dairy Farm Supervisor Relationship Specialty Start Date End Date Brett Kan [address] [place] [address] PCP - General Family Medicine 03/20/20 04/01/21 Maximino Arredondo MD [address] [place] [address] PCP - General Family Medicine 04/02/21 Chapin Khan MD [address] [place] [address] 113055 Urology 05/10/20 Brionna Covarrubias, RN Registered Nurse Oncology 05/10/20 09/01/22 Chapin Khan MD [address] [place] [address] 440805 Assigned Surgical Provider 06/16/20 11/16/20 Danya Pena Assigned Heart and Vascular Provider 08/11/20 03/29/21 Romi Fairbanks MD [address] [phone] Assigned Gastroenterology Provider 08/18/20 12/21/20 Driss Morales MD [address] [place] [address] [phone] Assigned Surgical Provider 11/17/20 04/10/22 [facility] [address] [place] [address] [phone] Pharmacist Pharmacist Hydroelectric Powerplant Supervisor 12/25/20 Chapin Ruvalcaba MD [address] [place] [address] 518555 Assigned Gastroenterology Provider 12/22/20 01/04/21 Romi Fairbanks MD [address] 434335 Assigned Gastroenterology Provider 01/05/21 06/12/22 Luke Carvalho MD [address] [place] [address] 11726 Assigned Heart and Vascular Provider 03/30/21 12/12/21 Carmen Chapman APRN CNP [address] [place] [address] Assigned PCP 04/27/21 03/27/22 Sarah Heard, FATOUMATA Specialty Nib Inspector Gastroenterology 05/14/21 12/29/21 [facility] [address] [place] [address] [phone] Assigned MTM Pharmacist 07/12/21 [facility] [address] [place] [address] [phone] Assigned MTM Pharmacist 11/12/21 Danya Pena Assigned Heart and Vascular Provider 12/13/21 01/02/22 Jeanette French RN [address] [place] [address] [phone] Specialty Nib Inspector Gastroenterology 12/30/21 Tammy Greenberg MD [address] [place] [address] [address] [place], [place] [phone] Cardiovascular Disease 02/24/22 Genaro Palacios MD [address] [place], [place] 832765 Assigned Heart and Vascular Provider 03/28/22 Claude Rucker MD [address] [place] [address] 054385 Assigned Surgical Provider 04/11/22 Delroy Gore APRN [facility] [address] [place] [address] 774125 Assigned Nephrology Provider 04/25/22 Chapin Ruvalcaba MD [address] [place] [address] 095225 Assigned Gastroenterology Provider 06/13/22 06/19/22 Romi Fairbanks MD [address] [phone] Assigned Gastroenterology Provider 06/20/22 08/14/22 Danya Barraza [facility] [address] [place] [address] [phone] Assigned MTM Pharmacist 12/05/22 Deuce Majano PA-C [address] [place] [address] [phone] Assigned Gastroenterology Provider 01/23/23 02/05/23 Chapin Ruvalcaba MD [address] [place], [place] [address]B [address] [place] [address] Assigned Gastroenterology Provider 02/06/23 documented as of this encounter
--- OUTSIDE RECORDS SUMMARY | 2023-03-14 02:45 | XMS_ITS | Encounter Summary ---
Author Name Unknown Organization [employer] Address [address] [place] [address] Care Team Providers Care Bull Gang Supervisor Name Role Phone Makayla Brett Pascual Primary Care Provider + [phone] Chapin Khan MD Unavailable +- 24 Brionna Covarrubias RN Unavailable +[phone] Chapin Kahn MD Unavailable +- 24 Danya Pena Unavailable Unavailable Romi Fairbanks MD Unavailable +[phone] Driss Morales MD Unavailable +[phone] Danya Barraza [facility] Unavailable +1- Chapin Ruvalcaba MD Unavailable +[phone] Romi Fairbanks MD Unavailable +[phone] Maximino Arredondo MD Primary Care Provider Luke Carvalho MD Unavailable [phone] Carmen Chapman MEDICAL SOCIAL WORKER FURNITURE SANDER Unavailable + Sarah Heard RN Unavailable Unavailable Danya Barraza [facility] Unavailable +[phone] Danya Barraza [facility] Unavailable +[phone] Danya Pena Unavailable Unavailable Jeanette Frecnh RN Unavailable +[phone] Tammy Greenberg MD Unavailable +[phone] Genaro Palacios MD Unavailable +[phone] Claude Rucker MD Unavailable +[phone] Delroy Gore APRN [facility] Unavailable +[phone] Chapin Ruvalcaba MD Unavailable +[phone] Romi Fairbanks MD Unavailable +[phone] Sofy Barrazasashayne Lopez [facility] Unavailable +[phone] Deuce Majano PA-C Unavailable +[phone] Chapin Ruvalcaba MD Unavailable + [phone] Encounter Details Date Type Department Care Team (Late st Contact Info) Description 08/26/2020 [facility] Cancer [address] [address] Roslyn Foley, RN Social History Tobacco [...] have Coronavirus / COVID-19? No / Unsure 08/13/2020 1:10 PM CDT documented as of this encounter Plan of Treatment Upcoming Encounters Date Type Department Care Team (Late st Contact Info) Description 04/01/2023 1:15 PM JEWELRY DIPPER Office Visit [address] [phone] Yolanda Wilkerson PA-C [address] [place] [address] [phone] 07/13/2023 8:00 AM CDT Virtual Visit [facility] [address] 4th [place] [phone] Deuce Majano PA-C [address] [place] [address] [phone] documented as of this encounter Visit Diagnoses Not on filedocumented in this encounter Additional Health Concerns Infection Onset Date Last Indicated Resolved Time COVID-19 01/02/2022 01/02/2022 01/16/2022 7:58 AM JEWELRY DIPPER Recovered COVID 01/16/2022 01/16/2022 04/01/2022 1 1:39 PM JEWELRY DIPPER Rule Out C-difficile 03/10/2023 03/10/2023 024 5:57 PM JEWELRY DIPPER documented as of this encounter Care Teams Bull Gang Supervisor Relationship Specialty Start Date End Date Brett Kan [address] [place] [address] PCP - General Family Medicine 03/20/20 04/01/21 Maximino Arredondo MD [address] [facility] [place] [address] PCP - General Family Medicine 04/02/21 Chapin Khan MD [address] [place] [address] [phone] Urology 05/10/20 Brionna Covarrubias, RN Registered Nurse Oncology 05/10/20 09/01/22 Chapin Khan MD [address] [place] [address] 738285 Assigned Surgical Provider 06/16/20 11/16/20 Danya Pena Assigned Heart and Vascular Provider 08/11/20 03/29/21 Romi Fairbanks MD [address] 312695 Assigned Gastroenterology Provider 08/18/20 12/21/20 Driss Morales MD [address] [place] [address] 509255 Assigned Surgical Provider 11/17/20 04/10/22 [facility] [address] [place] [address] [phone] Pharmacist Pharmacist Chemistry Specialist 12/25/20 Chapin Ruvalcaba MD [address] [place] [address] [phone] Assigned Gastroenterology Provider 12/22/20 01/04/21 Romi Fairbanks MD [address] [phone] Assigned Gastroenterology Provider 01/05/21 06/12/22 Luke Carvalho MD [address] [place] [address] 86874 Assigned Heart and Vascular Provider 03/30/21 12/12/21 Carmen Chapman APRN CNP [address] [place] [address] Assigned PCP 04/27/21 03/27/22 Sarah Heard, FATOUMATA Specialty Dispatcher Tow Truck Gastroenterology 05/14/21 12/29/21 [facility] [address] [place] [address] [phone] Assigned MTM Pharmacist 07/12/21 [facility] [address] [place] [address] 84005 Assigned MTM Pharmacist 11/12/21 aDnya Pena Assigned Heart and Vascular Provider 12/13/21 01/02/22 Jeanette French RN [address] [place] [address] 056175 Specialty Dispatcher Tow Truck Gastroenterology 12/30/21 Tammy Greenberg MD [address] [place] [address], [place] 320635 Cardiovascular Disease 02/24/22 Genaro Palacios MD [address] [place], [place] 780575 Assigned Heart and Vascular Provider 03/28/22 Claude Rucker MD [address] [place] [address] 300885 Assigned Surgical Provider 04/11/22 Delroy Gore APRN [facility] [address] [place] [address] [phone] Assigned Nephrology Provider 04/25/22 Chapin Ruvalcaba MD [address] [place] [address] [phone] Assigned Gastroenterology Provider 06/13/22 06/19/22 Romi Fairbanks MD [address] 402715 Assigned Gastroenterology Provider 06/20/22 08/14/22 Danya Barraza [facility] [address] [place] [address] [phone] Assigned MTM Pharmacist 12/05/22 Deuce Majano PA-C [address] [place] [address] 674345 Assigned Gastroenterology Provider 01/23/23 02/05/23 Chapin Ruvalcaba MD [address] [place], [place] [address]B [address] [place] [address] 07293 Assigned Gastroenterology Provider 02/06/23 documented as of this encounter
--- OUTSIDE RECORDS SUMMARY | 2023-03-14 02:45 | XMS_ITS | Encounter Summary ---
Author Name Unknown Organization [employer] Address [address] [place] [address] 22105 Care Team Providers Care Relationship Consultant Name Role Phone Makayla Brett Pascual Primary Care Provider + [phone] Chapin Khan MD Unavailable +- 24 Brionna Covarrubias RN Unavailable +[phone] Chapin Khan MD Unavailable +- 24 Danya Pena Unavailable Unavailable Romi Fairbanks MD Unavailable +[phone] Driss Morales MD Unavailable +[phone] Danya Barraza [facility] Unavailable +1- Chapin Ruvalcaba MD Unavailable +[phone] Romi Fairbanks MD Unavailable +[phone] Maximino Arredondo MD Primary Care Provider Luke Carvalho MD Unavailable +[phone] Carmen Chapman PERCUSSION INSTRUMENT TUNER KNUCKLE STRAP SEWER Unavailable + Sarah Heard RN Unavailable Unavailable Danya Barraza [facility] Unavailable +[phone] Danya Barraza [facility] Unavailable +[phone] Danya Pena Unavailable Unavailable Jeanette French RN Unavailable +[phone] Tammy Greenberg MD Unavailable +[phone] Genaro Palacios MD Unavailable +[phone] Claude Rucker MD Unavailable +[phone] Bao Delroy Gold [facility] Unavailable +[phone] Chapin Ruvalcaba MD Unavailable + [phone] Romi Fairbanks MD Unavailable +[phone] Madi Danya John [facility] Unavailable +[phone] Deuce MajanoC Unavailable +[phone] Chapin Ruvalcaba MD Unavailable + [phone] Encounter Details Date Type Department Care Team (Late Contact Info) Description 08/23/2020 [facility] - [facility] CONVERSION Scan, Non-Provider Social History Tobacco Use Types Packs/Day Years [...] (Late Contact Info) Description 04/01/2023 1:15 PM TRUSS DRIVER HELPER [facility] [address] [facility][Note 3][place] [phone] Yolanda Wilkerson, PAAnhC [address] [place] [address] 07/13/2023 8:00 AM CDT Virtual Visit [facility] [address] 4th [place] [phone] Deuce Majano PA-C [address] [place] [address] [phone] documented as of this encounter Visit Diagnoses Not on filedocumented in this encounter Additional Health Concerns Infection Onset Date Last Indicated Resolved Time COVID-19 01/02/2022 01/02/2022 01/16/2022 7:58 AM TRUSS DRIVER HELPER Recovered COVID 01/16/2022 01/16/2022 04/01/2022 1 1:39 PM TRUSS DRIVER HELPER Rule Out C-difficile 03/10/2023 03/10/2023 024 5:57 PM TRUSS DRIVER HELPER documented as of this encounter Care Teams Relationship Consultant Relationship Specialty Start Date End Date Makayla Nagylibby Brett Francine [address] [place] [address] PCP - General Family Medicine 03/20/20 04/01/21 Maximino Arredondo MD [address] [place] [address] PCP - General Family Medicine 04/02/21 Chapin Khan MD [address] [place] [address] 88011 Urology 05/10/20 Brionna Covarrubias, RN Registered Nurse Oncology 05/10/20 09/01/22 Chapin Khan MD [address] [place] [address] 228245 Assigned Surgical Provider 06/16/20 11/16/20 Danya Pena Assigned Heart and Vascular Provider 08/11/20 03/29/21 Romi Fairbanks MD [address] [address] Assigned Gastroenterology Provider 08/18/20 12/21/20 Driss Morales MD [address] [place] [address] 033815 Assigned Surgical Provider 11/17/20 04/10/22 Danya Barraza [facility] [address] [place] [address] [phone] Pharmacist Pharmacist Lumber Grader 12/25/20 Chapin Ruvalcaba MD [address] [place] [address] 909345 Assigned Gastroenterology Provider 12/22/20 01/04/21 Romi Fairbanks MD [address] 708115 Assigned Gastroenterology Provider 01/05/21 06/12/22 Luke Carvalho MD [address] [place] [address] 376535 Assigned Heart and Vascular Provider 03/30/21 12/12/21 Caremn Chapman APRN KNUCKLE STRAP SEWER [address] [place] [address] Assigned PCP 04/27/21 03/27/22 Sarah Heard, RN Specialty Insights Analyst Gastroenterology 05/14/21 12/29/21 [facility] [address] [place] [address] 52196 Assigned MTM Pharmacist 07/12/21 [facility] [address] [place] [address] 41929 Assigned MTM Pharmacist 11/12/21 Danya Pena Assigned Heart and Vascular Provider 12/13/21 01/02/22 Jeanette French, FATOUMATA [address] [place], [place] 144635 Specialty Insights Analyst Gastroenterology 12/30/21 Tammy Greenberg MD [address] [facility] [address] [place] [address] Cardiovascular Disease 02/24/22 Genaro Palacios MD [address] [facility] [address] [place] [address] Assigned Heart and Vascular Provider 03/28/22 Claude Rucker MD [address] [place] [address]403 Assigned Surgical Provider 04/11/22 Delroy Gore APRN KNUCKLE STRAP SEWER [address] [place] [address] Assigned Nephrology Provider 04/25/22 Chapin Ruvalcaba MD [address] [place] [address] 6[address] Assigned Gastroenterology Provider 06/13/22 06/19/22 Romi Fairbanks MD [address] [address] Assigned Gastroenterology Provider 06/20/22 08/14/22 Danya Barraza [facility] [address] [place] [address] 833945 Assigned MTM Pharmacist 12/05/22 Deuce Majano PA-C [address] [place] [address] [phone] Assigned Gastroenterology Provider 01/23/23 02/05/23 Chapin Ruvalcaba MD [address] [place] [address] 91208 Assigned Gastroenterology Provider 02/06/23 documented as of this encounter
== END 2023-03-14 02:46 | disposition home or self-care (01) ==
LOC: ED 02:32
PROVIDERS: Emergency Provider Internal Medicine
DX: S99.822A Other specified injuries of left foot, initial encounter (principal); W22.03XA Walked into furniture, initial encounter
CPT/HCPCS: 99283

== ENCOUNTER 2023-04-28 16:15 | Emergency (ER) | payer OTHER, SELFPAY ==
[2023-04-28 16:21] VITALS: BP 133/63; PULSE 105; TEMP 36.4; O2SAT 100; BMI 22.4
--- NOTE | 2023-04-28 16:36 | ED_ITS ---
HPI - General Adult General Date Seen: 04/28/23 Chief complaint: Urogenital Problems, Male Stated complaint: swollen scrotum Time Seen by Provider: 04/28/23 16:32 History of Present Illness HPI narrative: This is a 63-year-old male with a complex past history including heart valve disease (patient reports that he has to ?leaky valves? that are being worked up at the [facility]. He has had recent right and left heart catheterizations and they are planning for open heart surgery next month), he also has Crohn's disease with several previous surgeries and bowel resection (patient reports recent 5 day hospitalization at the [facility] for will was apparently lower GI bleeding. He received transfusion of several units of packed red cells while in the hospital. He had upper and lower endoscopies and apparently they found ?something? that they cauterized to stop the bleeding in his colon. Report from hospitalist at [facility] who has is records from [place] indicates that they found a site of bleeding in his ileum.), he also has end-stage renal disease on dialysis Wednesday (managed through [facility]. It sounds like his normal dry your weight is somewhere in the upper 60s. Apparently his goal dry weight has been trying to be pushed down recently with a goal of around 68 kg. He has been dialyzing Wednesday, Wednesday, Fridays. It sounds like he has been retaining fluids and his weight was 73 kg today after dialysis. He does note that he has had increased bilateral lower extremity peripheral edema and edema in his hands.), coronary artery disease, atrial fibrillation, aortic dissection, anemia (hemoglobin 7.7 in February, we do not have recent hemoglobin measurements from a [place]). He presents to the ER today because he feels like his scrotum is been quite swollen since he woke up on Wednesday morning. No known trauma. The scrotum is not painful it has not been red. No fevers or chills. No abdominal pain or flank pain. He has says the scrotum is not really getting better or getting worse but it is bothersome because it is in the way when he walks. He decided he would come to the ER this afternoon just because it is getting better. He also notes that since he was discharged from the hospital 10 days ago he had been dealing with a lot of diarrhea. No definite bloody stools. He had an outpatient C diff test that was normal. He had taken some Imodium and he feels like his diarrhea is better now. He is not having any abdominal pain. No scrotal pain. No fever. No vomiting. He does not have any chest pain or trouble breathing. Related Data Home Medications Medication Instructions Recorded Confirmed amlodipine 10 mg tablet 10 mg PO DAILY 09/02/21 01/28/23 calcitriol 0.25 mcg capsule 1.5 mcg PO DAILY 09/02/21 01/28/23 calcium acetate(phosphat bind) 667 2,668 mg PO TID 09/02/21 01/28/23 mg tablet folic acid 1 mg tablet 1 mg PO DAILY 09/02/21 01/28/23 multivitamin 1 tab PO DAILY 09/02/21 01/28/23 omeprazole 20 mg capsule,delayed 20 mg PO DAILY 09/02/21 01/28/23 release simvastatin 20 mg tablet 20 mg PO DAILY 09/02/21 01/28/23 ustekinumab 90 mg/mL subcutaneous 90 mg subcut Q4W 09/02/21 01/28/23 syringe (Stelara) carvedilol 12.5 mg tablet 12.5 mg PO BID 05/11/22 01/28/23 gabapentin 100 mg capsule 200 mg PO HS 05/11/22 01/28/23 Allergies Allergy/AdvReac Type Severity Reaction Status Date / Time lisinopril Allergy Severe Verified 01/28/23 14:17 [facility] Medical History Acute Crohn's disease ?K50.90 - Crohn's disease, unspecified, without complications (ICD-10) Anemia ?D64.9 - Anemia, unspecified (ICD-10) NSTEMI (non-ST elevated myocardial infarction) ?I21.4 - Non-ST elevation (NSTEMI) myocardial infarction (ICD-10) HTN (hypertension) ?I10 - Essential (primary) hypertension (ICD-10) IPMN (intraductal papillary mucinous neoplasm) ?D49.0 - Neoplasm of unspecified behavior of digestive system (ICD-10) ESRD (end stage renal disease) on dialysis ?N18.6 - End stage renal disease (ICD-10) ?Z99.2 - Dependence on renal dialysis (ICD-10) ESRD (end stage renal disease) ?N18.6 - End stage renal disease (ICD-10) CAD (coronary artery disease) ?I25.10 - Atherosclerotic heart disease of [place] coronary artery without angina pectoris (ICD-10) Aortic dissection ?I71.00 - Dissection of unspecified site of aorta (ICD-10) A-fib ?I48.91 - Unspecified atrial fibrillation (ICD-10) Surgical History History of bowel resection ?Z90.49 - Acquired absence of other specified parts of digestive tract (ICD-1 0) Social History Smoking Status: Current every day smoker What tobacco products do you use: cigarettes Smoking packs per day: 0.25 Smoking cigarettes per day: 5.0 Do you use any of these nicotine containing products: None Second hand tobacco smoke exposure: No How often do you have a drink containing alcohol: never AUDIT-C Alcohol total score: 0 Non-prescribed substance use: denies use service: No Exam Narrative: Exam Narrative: Constitutional: Appears well-developed and well-nourished. Alert. Conversant. Breathing easily. Speaking full sentences. Non toxic. HENT: Head: Atraumatic. Nose: Nose normal. Mouth/Throat: Oral mucosa is clear and moist. no trismus. Eyes: Conjunctivae normal. EOM normal. Pupils equal, round, and reactive to light. No scleral icterus. Neck: Normal range of motion. Neck supple. No tracheal deviation present. Cardiovascular: Normal rate, regular rhythm. No gallop. No friction rub. No definite murmur heard. Symmetric radial artery pulses Pulmonary/Chest: Effort normal. No stridor. No respiratory distress. No wheezes. No rales. No rhonchi . No tenderness. Abdominal: Soft. Bowel sounds normal. No distension. Nontender right upper quadrant mass consistent with a incisional hernia from where his previous ostomy was. No mass. No tenderness. No rebound. No guarding. Skin of the abdomen does feel a bit edematous likely due to anasarca from fluid overload. : He does have a swollen edematous scrotum. No erythema. No tenderness. Scrotum appears to be symmetrically swollen. I believe I am able to palpate both testicles and they are not tender. No palpable inguinal hernia. Perineum is normal. No signs of cellulitis, abscess, Eyad's gangrene. Tissue of the mons pubis and groin is normal. Musculoskeletal: RUE: Normal range of motion. No tenderness. No deformity LUE: Normal range of motion. No tenderness. No deformity. Fistula in left upper arm with palpable thrill. Trace edema in both forearms. RLE: Normal range of motion. 3+ edema. No tenderness. No deformity LLE: Normal range of motion. 3+ edema. No tenderness. No deformity Lymph: No inguinal adenopathy. Neurological: Alert and oriented to person, place, and time. Normal strength. CN II-VII intact. No sensory deficit. GCS eye subscore is 4. GCS verbal subscore is 5. GCS motor subscore is 6. Normal coordination Skin: Skin is warm and dry. No rash noted. No pallor. Normal capillary refill. Psychiatric: Normal mood. Normal affect. Const: Vital Signs, click to edit/add: Vital Signs - 24 hr 04/28/23 16:21 04/28/23 19:09 04/28/23 22:19 Temperature 97.6 F 97.5 F L Pulse Rate 88 Pulse Rate [Pulse Oximeter] 105 H 51 L Respiratory Rate 18 16 Blood Pressure 125/64 Blood Pressure [Ri ght Upper Arm] 133/63 123/54 L Pulse Oximetry 100 100 99 Oxygen Delivery Me thod Room Air 04/28/23 22:43 04/28/23 22:45 04/28/23 23:28 Temperature 97.8 F 97.8 F 98.2 F Pulse Rate 92 92 91 Pulse Rate [Pulse Oximeter] Respiratory Rate 17 17 17 Blood Pressure 126/68 126/68 128/73 Blood Pressure [Ri ght Upper Arm] Pulse Oximetry 99 Oxygen Delivery Me thod Course Course ED Course: Patient arrived and was to triage chin to ER room 1. I evaluated him there performed initial history and physical. My initial impression was that he likely had scrotal edema related to his generalized over fluid overload, bilateral lower extremity edema, abdominal wall edema. He is up about 5 kg from his dry weight. Differential for the scrotal swelling was broad including testicular torsion, epididymitis, orchitis. No clinical exam evidence discuss suggest a scrotal cellulitis, Eyad's gangrene, or cellulitis of the groin or perineum or scrotum. We decided to pursue workup with scrotal ultrasound. Will also do labs to reassess his blood counts and electrolytes and kidney function given that he is a dialysis patient with recent hospitalization for GI bleeding. Recheck-scrotal ultrasound came back showing scrotal wall edema, no other acute surgical finding. Labs came back surprisingly abnormal. Hemoglobin is low at 5.7. Patient recalls that when he was discharged from [place] about 10 or 14 days ago hemoglobin was 8.6. This was suggest a 3 g drop in then past couple of weeks. He denies any bloody stools. Unclear where the blood is been going. Possibly hemodilution from fluid overload? Otherwise occult GI bleeding would be the most likely source. His blood pressure is normal. Given his profound anemia he does need transfusion. CBC also shows a leukocytosis with a white count of 21. We did a noncontrast CT scan (because of renal insufficiency and because he still makes some limited urine) to look for possible signs of flaring Crohn's disease. CT scan does not show any definitive colitis or any free air or any abscess. However it does show pneumatosis in the wall of the colon. Differential for this would include ischemic gut, infection. Per radiology report pneumatosis can sometimes be a benign finding. I was able to contact the hospitalist at [facility] who indicated that the patient has not had pneumatosis on his recent CT from a couple of weeks ago. Fortunately electrolytes and potassium are normal. BUN 52, creatinine 4.4. He does say that he went to his dialysis run today. Glucose is elevated but anion gap is normal. No evidence for DKA. Chest x-ray does show signs of mild fluid overload/CHF but he is not hypoxic. He is able to ambulate. Respirations are unlabored. It is clear that he will need hospitalization for transfusion. At the same time he is at high risk developed increasing fluid overload and CHF. He cannot be hospitalized here in [place] because he is a dialysis patient, and has multiple complex illnesses requiring specialist consultation. Therefore transfer is indicated. He gets his dialysis care through a research software engineer at [facility] but gets the remainder of his care through [facility]. We contacted the [facility] transfer line to request a bed at the [place]. There was substantial delay in getting call back from the transfer line. Ultimately I did discuss with the hospitalist at the [facility], Dr. Medrano, who agrees the patient would be appropriate to admit the you given his complexity. However there are no beds available to you and likely will be none available for days. They would recommend transfer to another [place] site such as [facility] or [facility]. There was substantial delay in getting the [place] transfer center to contact [facility] in [facility]. Ultimately we had to contact them ourselves. There are no beds available at [facility]. There is a bed available at [facility]. D iscussed with the hospitalist from [facility], Dr. Kim. Our initial phone call was cut off when the [place] telephone system abruptly crashed. This led to further delay while we were trying to reestablish connections with [place]. I tried multiple times myself to contact through the [place] transfer center, but had difficulty because their phones were down. Ultimately I was able to get back in contact with Dr. Kim and he accepted the patient. He also requests that we consult with Colorectal surgery given the leukocytosis, pneumatosis. Patient has very difficult IV access. Ultimately we were able to get an 18 gauge IV in his right upper extremity with the help of our anesthesia team. Through this we were able to start his transfusion of his 1st unit of packed red cells. Unfortunately his IV infiltrated after receiving only part of his transfusion. We made multiple subsequent attempts to reestablish IV, but we were unsuccessful. At this point his bed was finally ready at [facility]. I had a discussion with the patient. I recommended that we place a central line to get access so he get his transfusion, antibiotics, and proper resuscitation. He remains hemodynamically stable and relatively asymptomatic. I also recommended that we transfer by EMS given his critically low hemoglobin and need for blood transfusion. The patient adamantly refuses to transfer by EMS and just wants to transfer by private car up to [facility]. He does not want stay here in the ER any longer for central line. At this point I feel like he is not adequately resuscitated from a blood transfusion standpoint and has not received antibiotics for potential life-threatening intra-abdominal infection. I have significant misgivings about a transfering this patient by private car given his markedly abnormal lab values and CT imaging. He and I had a colleagial discussion. He did not seem to be angry or upset about his care here in the ER, he just wanted to transfer and did not want to stay any longer. His vital signs are stable and his mental status is stable. I do think he has medical decision-making capacity. Therefore we will discharge him from the ER here in [place] at this point and he will transfer by private car to the [facility]. Vital Signs Vital signs: Initial Vital Signs Temperature 97.6 F 04/28/23 16:21 Temperature Source Temporal Artery Scan 04/28/23 16:21 Pulse Rate 105 H 04/28/23 16:21 Blood Pressure 133/63 04/28/23 16:21 Blood Pressure Mean 86 04/28/23 16:21 Blood Pressure Position Sitting 04/28/23 16:21 Pulse Oximetry 100 04/28/23 16:21 Oxygen Delivery Method Room Air 04/28/23 16:21 Vital Signs Temperature 97.6 F 04/28/23 16:21 Pulse Rate 105 H 04/28/23 16:21 Blood Pressure 133/63 04/28/23 16:21 Pulse Oximetry 100 04/28/23 16:21 Oxygen Delivery Method Room Air 04/28/23 16:21 Temperature 98.2 F 04/28/23 23:28 Pulse Rate 91 04/28/23 23:28 Respiratory Rate 17 04/28/23 23:28 Blood Pressure 128/73 04/28/23 23:28 Pulse Oximetry 99 04/28/23 22:43 Oxygen Delivery Method Room Air 04/28/23 16:21 Medical Decision Making Lab Data Labs: Lab Results 04/28/23 04/28/23 Range/Units 17:42 21:06 WBC 21.56 H (4.50-11.00) K/uL RBC 1.58 L (4.30-5.90) m/uL Hgb 5.7 L* (13.5-17.5) gm/dL Hct 17.5 L (37.0-53.0) % MCV 111 H (80-100) fL MCH 36 H (26-34) pg MCHC 33 (32-36) gm/dL RDW Coeff of Loretta 24.8 H (11.5-15.5) % Plt Count 61 L (140-440) K/uL Neut % (Auto) 94.3 H (42.0-72.0) % Lymph % (Auto) 1.6 L (20-44) % [place] % (Auto) 2.2 (0.0-11.0) % Eos % (Auto) 0.0 (0.0-7.0) % Baso % (Auto) 1.0 (0.0-3.0) % Neut # (Auto) 20.30 H (1.7-7.0) K/uL Lymph # (Auto) 0.30 L (0.90-2.90) K/uL [place] # (Auto) 0.50 (0.00-0.90) K/UL Eos # (Auto) 0.00 (0.00-0.50) K/uL Baso # (Auto) 0.20 (0.00-0.30) K/uL Abs Immat Gran (auto) 0.20 (0.00-0.30) K/uL Imm/Tot Granulo (auto) 0.9 % Diff Slide Review Acceptable Review (Acceptable) Sodium 129 L (135-149) mmol/L Potassium 3.2 L (3.6-5.1) mmol/L Chloride 95 L (96-114) mmol/L Carbon Dioxide 20 (20-32) mmol/L Anion Gap 14 (7-15) mEq/L BUN 52 H (7-30) mg/dL Creatinine 4.4 H (0.5-1.5) mg/dL Estimated Creat Clear 17.51 Estimated GFR 14 ml/min Glucose 431 H* (60-115) mg/dL Lactate 4.5 H* (0.5-1.9) mmol/L Calcium 8.0 L (8.4-10.6) mg/dL NT-Pro-B Natriuret Pep 72355 pg/mL Blood Type A Positive Antibody Screen NEGATIVE Crossmatch (AHG) See Detail Imaging Data US scrotum: Attestation: I have reviewed the pertinent imaging results. Radiologist's impression: IMPRESSION: 1. Moderate bilateral hydroceles. No evidence of torsion. 2. Diffuse scrotal wall thickening and edema. Chest x-ray: Attestation: I have reviewed the pertinent imaging results. Radiologist's impression: Findings/impression : The cardiomediastinal silhouette is within normal limits. There is mild pulmonary vascular congestion. Faint opacities involving the medial right lower lung zone, may represent pulmonary edema versus an acute infectious/inflammatory process in the ap propriate clinical context. There is no pleural effusion or pneumothorax. The soft tissues and osseous structures are within normal limits. CT scan - abdomen: Attestation: I have reviewed the pertinent imaging results. My impression: IMPRESSION: 1. Extensive pneumatosis involving the large bowel raises concern for ischemia. Large bowel and mildly dilated small bowel loops also extend into a right anterior abdominal wall hernia, of uncertain significance. Pneumatosis can be be nign, however, continued close clinical follow-up is required. This was discussed with Dr. Crandall at the at approximately 8:45 p.m. on 04/28/2023 via telephone conversation. 2. Complex 7.5 cm cystic lesion in the left kidney is incompletely evaluated. Nonemergent renal ultrasound can be performed when clinically appropriate. Additionally, comparison with outside imaging, if available, may prove useful. 3. Anasarca. ECG Data Attestation: I personally reviewed and interpreted this ECG as follows: Interpretation: Normal sinus rhythm occasional PVCs. CO 138 QRS axis : LAD. RBBB. Left anterior fascicular block. QRS duration 144. ST segment/T wave: ST changes discordant from QRS. No ST segment elevation or depression to suggest STEMI. QTc: 535-prolonged Discharge Plan Discharge Clinical Impression: Anemia, Anasarca, Pneumatosis of intestines, Chronic renal failure, Leukocytosis, Increased lactic acid level Patient Disposition: Xfer Other Prescriptions: No Action carvedilol 12.5 mg tablet 12.5 mg PO BID gabapentin 100 mg capsule 200 mg PO HS Stelara 90 mg/mL syringe 90 mg SUBCUT Q4W multivitamin Tablet 1 tab PO DAILY calcium acetate(phosphat bind) 667 mg tablet 2,668 mg PO TID Patient Comments: TAKE 4 TABLETS BY MOUTH THREE TIMES DAILY WITH MEALS AND TAKE 2 TABLETS WITH SNACKS TO EQUAL 14 TABLETS PER DAY folic acid 1 mg tablet 1 mg PO DAILY omeprazole 20 mg capsule,delayed release(DR/EC) 20 mg PO DAILY amlodipine 10 mg tablet 10 mg PO DAILY calcitriol 0.25 mcg capsule 1.5 mcg PO DAILY simvastatin 20 mg tablet 20 mg PO DAILY Stand Alone Forms: [employer] Info Instructions
--- NOTE | 2023-04-28 17:08 | XR_ITS ---
Patient: BECKY GALLOWAY Facility:?[facility] Patient ID:?[id number] Site Patient ID:?[id number]. Site :?1960 Study:?XRay-Chest 2V-04/28/2023 6:03:58 PM Ordering Physician:ZACHERY Final Report: Indication: Fluid overload Technique: Two views of the chest Comparison: None Findings/impression : The cardiomediastinal silhouette is within normal limits. There is mild pulmonary vascular congestion. Faint opacities involving the medial right lower lung zone, may represent pulmonary edema versus an acute infectious/inflammatory process in the appropriate clinical context. There is no pleural effusion or pneumothorax. The soft tissues and osseous structures are within normal limits. Dictated by Gideon Hanna MD @ 04/28/2023 6:32:11 PM Signed by:?Gideon Hanna MD @04/28/2023 6:32:11 PM (Electronic Signature)
--- NOTE | 2023-04-28 17:08 | US_ITS ---
Patient: BECKY GALLOWAY Facility:?[facility] Patient ID:?[id number] Site Patient ID:?[id number]. Site :?[id number] Study:?US-Testicle SCROTUM-04/28/2023 6:30:30 PM Ordering Physician:?CATY THORPE Final Report: INDICATION: Scrotal edema, pain. COMPARISON: None. TECHNIQUE: Ayoub scale imaging was performed of the scrotum. Color Doppler and spectral Doppler analysis was performed of the testes. FINDINGS: Testes: The right testis measures 3.3 x 2.5 x 2.6 cm and the left testis measures 2.9 x 2.8 x 2.3 cm. The testes demonstrate normal arterial and venous blood flow on color Doppler and spectral Doppler analysis. The testes have uniform echogenicity without evidence of a suspicious mass or area of inflammation. Few bilateral testicular microcalcifications. Epididymis: The epididymis appears normal bilaterally. No hypervascularity. Other: Moderate bilateral hydroceles. No varicocele. Diffuse scrotal wall thickening and edema. IMPRESSION: 1. Moderate bilateral hydroceles. No evidence of torsion. 2. Diffuse scrotal wall thickening and edema. Dictated by Carolyne Banda MD @ 04/28/2023 7:00:43 PM Signed by:?Carolyne Banda MD @04/28/2023 7:00:43 PM (Electronic Signature)
[2023-04-28 17:50] LABS: Hematocrit 17.5 % (37.0-53.0); Immature Granulocytes Pct Auto 0.9 %; Lymphocytes Percent Auto 1.6 % (20-44); Mean Corpuscular HGB Conc 33 gm/dL (32-36); Mean Corpuscular Hemoglobin 36 pg (26-34); Mean Corpuscular Volume 111 fL (80-100); Monocytes Percent Auto 2.2 % (0.0-11.0); Neutrophils Percent Auto 94.3 % (42.0-72.0); Platelet Count* 61 K/uL (140-440); RDW Coefficient of Variation % 24.8 % (11.5-15.5); Red Blood Count 1.58 m/uL (4.30-5.90); White Blood Count* 21.56 K/uL (4.50-11.00)
[2023-04-28 18:03] LABS: Hemoglobin* 5.7 gm/dL (13.5-17.5)
[2023-04-28 18:04] LABS: Chloride* 95 mmol/L (96-114); Potassium* 3.2 mmol/L (3.6-5.1); Slide Review Reflex Yes; Sodium* 129 mmol/L (135-149)
[2023-04-28 18:06] LABS: Creatinine* 4.4 mg/dL (0.5-1.5); Est. Creatinine Clearance* 17.51; Estimated Glomerular Filt Rate 14 ml/min
[2023-04-28 18:07] LABS: Anion Gap 14 mEq/L (7-15); Blood Urea Nitrogen* 52 mg/dL (7-30); Carbon Dioxide* 20 mmol/L (20-32)
[2023-04-28 18:29] LABS: Glucose* 431 mg/dL (60-115)
[2023-04-28 18:36] LABS: Slide Review Acceptable Review (Acceptable)
[2023-04-28 18:37] LABS: NT Pro B Type NatriureticPept* 31400 pg/mL
[2023-04-28 19:09] VITALS: BP 123/54; PULSE 51; RESP 18; O2SAT 100
--- NOTE | 2023-04-28 19:47 | ED.NURSE ---
Multiple attempts at IVs with two nurses unsuccessful at this time. Working with guest house manager to possibly consult with anesthesia.
--- NOTE | 2023-04-28 19:53 | CT_ITS ---
Patient: BECKY GALLOWAY Facility:?[facility] R[facility] Patient ID:?[id number] Site Patient ID:?[id number]. Site :?1960 Study:?CT-Abdomen/Pelvis WO-04/28/2023 8:24:27 PM Ordering Physician:ZACHERY Final Report: INDICATION: Anemia. Possible GI bleed. History of colon resection. Cholecystectomy and appendectomy. TECHNIQUE: CT abdomen and pelvis without contrast. COMPARISON: None. FINDINGS: Lower chest: Lung bases are clear. No pleural or pericardial effusions. Borderline/mild cardiomegaly. Liver: Low-density in the right hepatic lobe is incompletely characterized but likely represents an incidental cyst. The unenhanced liver is otherwise unremarkable. Spleen: Unremarkable. Pancreas: Unremarkable. Gallbladder and bile ducts: Cholecystectomy. No biliary ductal dilatation. Kidneys: Bilateral renal atrophy and renal vascular calcifications. Simple appearing cyst in the upper pole of the right kidney. There is a 7.5 cm cystic lesion about the lateral lower pole of the left kidney that contains peripheral wall thickening and calcification along with internal septation that is incompletely evaluated. No hydronephrosis. Adrenal glands: Unremarkable. GI tract: Extensive pneumatosis with extraluminal gas involving the entire colon. A right anterior abdominal wall hernia contains large bowel and a mildly dilated small bowel loop (axial image 64 of series 2. Diffuse body wall edema. Vascular structures: Aortic atherosclerosis. No abdominal aortic aneurysm. No acute retroperitoneal hemorrhage. There is diminished intravascular density suggesting underlying anemia. Lymph nodes: Multiple subcentimeter short axis retroperitoneal nodes. No confluent lymphadenopathy. Pelvic Organs: Prostate and bladder as imaged are unremarkable. Bones: Degenerative changes of the spine and pelvis. No acute or suspicious osseous abnormality. IMPRESSION: 1. Extensive pneumatosis involving the large bowel raises concern for ischemia. Large bowel and mildly dilated small bowel loops also extend into a right anterior abdominal wall hernia, of uncertain significance. Pneumatosis can be benign, however, continued close clinical follow-up is required. This was discussed with Dr. Crandall at the at approximately 8:45 p.m. on 04/28/2023 via telephone conversation. 2. Complex 7.5 cm cystic lesion in the left kidney is incompletely evaluated. Nonemergent renal ultrasound can be performed when clinically appropriate. Additionally, comparison with outside imaging, if available, may prove useful. 3. Anasarca. Dictated by Luke Foley MD @ 04/28/2023 8:52:22 PM Please note that all CT scans at this facility use dose modulation, iterative reconstruction, and/or weight-based dosing when appropriate to reduce radiation dose to as low as reasonably achievable. Dictated by: Luke Foley MD @ 04/28/2023 20:52:36 Signed by:?Luke Foley MD @04/28/2023 8:52:36 PM (Electronic Signature)
[2023-04-28 21:28] LABS: Lactate* 4.5 mmol/L (0.5-1.9)
[2023-04-28 22:19] VITALS: BP 125/64; PULSE 88; RESP 16; TEMP 36.4; O2SAT 99
[2023-04-28 22:43] VITALS: BP 126/68; PULSE 92; RESP 17; TEMP 36.6; O2SAT 99
[2023-04-28 22:45] VITALS: BP 126/68; PULSE 92; RESP 17; TEMP 36.6
[2023-04-28 23:28] VITALS: BP 128/73; PULSE 91; RESP 17; TEMP 36.8
--- NOTE | 2023-04-29 00:25 | ED.NURSE ---
Report called to [facility] unit Luz. Dispatch paged. At this time, patient is refusing EMS transport. Provider to be updated.
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
== END 2023-04-29 01:01 | disposition other institution (70) ==
PROVIDERS: Emergency Provider Emergency Medicine
DX: D64.9 Anemia, unspecified (principal); R60.1 Generalized edema; K63.89 Other specified diseases of intestine; N18.9 Chronic kidney disease, unspecified; D72.829 Elevated white blood cell count, unspecified; R74.02 Elevation of levels of lactic acid dehydrogenase [LDH]
CPT/HCPCS: 36415; 36430; 71046; 74176; 76870; 80048; 83605; 83880; 85025; 86850; 86900; 86901; 86922; 87040; 93005; 93976; 96374; 96376; 99285; P9016